=== PATIENT | female | born 1945 | race Caucasian/White ===

== ENCOUNTER 2018-03-26 18:44 | Outpatient (REF) | payer MEDICARE, SELFPAY ==
[2018-03-26 19:58] LABS: ALT 36 U/L (12-78); AST 23 U/L (15-37); HDL Cholesterol 47 mg/dL (40-60); LDL CHOLESTEROL 132 mg/dL (<100)
[2018-03-26 20:29] LABS: Creatine Kinase 101 U/L (26-192)
== END 2018-03-26 19:04 ==
LOC: NCHCN 18:44
PROVIDERS: PCP Nurse Practitioner Family; Visit Provider Nurse Practitioner Family
DX: E78.5 Hyperlipidemia, unspecified (principal)
CPT/HCPCS: 82550; 83721; 83718; 84450; 84460

== ENCOUNTER 2019-04-16 09:24 | Outpatient (REF) | payer MEDICARE, SELFPAY ==
[2019-04-16 20:36] LABS: ALT 33 U/L (14-59); AST 16 U/L (15-37); Calculated LDL 106 mg/dL; Cholesterol 190 mg/dL (50-200); Glucose 100 mg/dL (70-100); HDL Cholesterol 54 mg/dL (40-60); Triglyceride 151 mg/dL (30-150)
== END 2019-04-16 09:44 ==
LOC: NCHCO 09:24
PROVIDERS: PCP Nurse Practitioner Family; Visit Provider Nurse Practitioner Family
DX: E78.5 Hyperlipidemia, unspecified (principal); R73.9 Hyperglycemia, unspecified
CPT/HCPCS: 80061; 82947; 84450; 84460

== ENCOUNTER 2021-03-29 14:30 | Outpatient (REF) | payer MEDICARE, SELFPAY ==
[2021-03-29 20:26] LABS: TSH (W/Ref FT4) 3.83 uIU/mL (0.36-3.74)
[2021-03-29 20:43] LABS: FREE T4 0.66 ng/dL (0.76-1.46)
[2021-04-12 09:55] LABS: Misc Referral (MAYO) See Comments
== END 2021-03-29 14:31 | disposition home or self-care (01) ==
LOC: LBN 14:30
PROVIDERS: PCP Nurse Practitioner Family; Visit Provider Ophthalmology
DX: H53.2 Diplopia (principal); H50.89 Other specified strabismus
CPT/HCPCS: 83519; 83520; 84439; 84443

== ENCOUNTER 2021-07-14 17:45 | Outpatient (REF) | payer MEDICARE, SELFPAY ==
[2021-07-14 19:49] LABS: Anion Gap 9.6 mmol/L (3-11); BUN 20 mg/dL (7-18); CO2 27.4 mmol/L (21.0-32.0); CREATININE 0.9 mg/dL (0.55-1.02); Chloride 101 mmol/L (98-107); Glucose 124 mg/dL (74-106); Sodium 138 mmol/L (136-145); TSH (W/Ref FT4) 3.56 uIU/mL (0.36-3.74)
== END 2021-07-14 17:46 | disposition home or self-care (01) ==
LOC: NCHCN 17:45
PROVIDERS: PCP Nurse Practitioner Family; Visit Provider Physician Assistant
DX: I10 Essential (primary) hypertension (principal); E04.1 Nontoxic single thyroid nodule
CPT/HCPCS: 80048; 84443

== ENCOUNTER 2022-03-23 10:05 | Outpatient (REF) | payer MEDICARE, SELFPAY ==
[2022-03-23 20:06] LABS: TSH 2.18 uIU/mL (0.36-3.74)
== END 2022-03-23 10:06 | disposition home or self-care (01) ==
LOC: NCHCN 10:05
PROVIDERS: PCP Nurse Practitioner Family; Visit Provider Physician Assistant
DX: E04.1 Nontoxic single thyroid nodule (principal)
CPT/HCPCS: 84443

== ENCOUNTER 2022-11-13 17:34 | Outpatient (REF) | payer MEDICARE, SELFPAY ==
[2022-11-13 20:58] LABS: TSH 4.96 uIU/mL (0.36-3.74)
== END 2022-11-13 17:35 | disposition home or self-care (01) ==
LOC: NCHCN 17:34
PROVIDERS: PCP Nurse Practitioner Family; Visit Provider Physician Assistant
DX: E04.1 Nontoxic single thyroid nodule (principal)
CPT/HCPCS: 84443

== ENCOUNTER 2022-12-19 09:42 | Outpatient (REF) | payer MEDICARE, SELFPAY ==
[2022-12-19 19:38] LABS: TSH (W/Ref FT4) 2.39 uIU/mL (0.36-3.74)
== END 2022-12-19 09:43 | disposition home or self-care (01) ==
LOC: LBN 09:42
PROVIDERS: PCP Nurse Practitioner Family; Visit Provider Student in an Organized Health Care Education/Training Program
DX: E03.9 Hypothyroidism, unspecified (principal); E55.9 Vitamin D deficiency, unspecified
CPT/HCPCS: 82306; 84443

== ENCOUNTER 2023-03-21 10:06 | Outpatient (REF) | payer MEDICARE, SELFPAY ==
[2023-03-21 21:22] LABS: ALT 39 U/L (14-59); AST 21 U/L (15-37); Alkaline Phosphatase 50 U/L (46-116); Anion Gap 9.7 mmol/L (3-11); BUN 22 mg/dL (7-18); Bilirubin, Total 0.5 mg/dL (0.2-1.0); CO2 26.3 mmol/L (21.0-32.0); CREATININE 0.9 mg/dL (0.55-1.02); Calcium 9.6 mg/dL (8.5-10.1); Chloride 101 mmol/L (98-107); Estimated GFR 66.67 (mL/min/1.73m2); Glucose 106 mg/dL (74-106); Potassium 4.2 mmol/L (3.5-5.1); Sodium 137 mmol/L (136-145); TSH (W/Ref FT4) 1.61 uIU/mL (0.36-3.74); Total Protein 7.2 g/dL (6.4-8.2); Vitamin B12 194 pg/mL (193-986); Vitamin D 25 Total 24.7 ng/mL (30-100)
== END 2023-03-21 10:07 | disposition home or self-care (01) ==
LOC: NCHCN 10:06
PROVIDERS: PCP Nurse Practitioner Family; Visit Provider Physician Assistant
DX: E03.9 Hypothyroidism, unspecified (principal); I10 Essential (primary) hypertension; E55.9 Vitamin D deficiency, unspecified; E53.8 Deficiency of other specified B group vitamins
CPT/HCPCS: 80053; 82306; 82607; 84443

== ENCOUNTER → 2023-04-11 00:05 | Outpatient (CLI) | payer MEDICARE, SELFPAY ==
--- NOTE | 2023-04-11 | DI.MAMMO_ITS ---
Exam(s) MAMMO SCREENING EXAM: MAMMO SCREENING CLINICAL HISTORY: SCREENING MAMMO Z12.31 TECHNIQUE: Bilateral full field digital CC and MLO mammographic images were obtained with 3D tomosyn thesis and utilizing computer aided detection (CAD). COMPARISON: Available for comparison. FINDINGS: Masses/Architectural Distortion: None seen. Microcalcifications: No suspicious pleomorphic-type are seen. Stable benign type calcifications are s een in both breasts. Skin Thickening/Nipple Retraction: None. IMPRESSION: 1. No significant interval change with no specific features of malignancy noted. 2. Unless there is more urgent need, screening mammography is recommended, as per [place] guidelines. BI-RADS Category 2 - Benign Findings Breast Density - Category B - Scattered areas of fibroglandular density Breast density category C or D implies that the patient has dense breast tissue. Dense breast tissue is very common and is not abnormal but dense breast tissue can make it harder to find cancer on a ma mmogram. Also, dense breast tissue may increase their breast cancer risk. This information about the result of the mammogram report was provided to the patient to raise their awareness. Use this report when you speak with the patient about their risks for breast cancer, which includes their family hist ory. At that time, you may recommend for more screening tests (Ultrasound or MRI) as they might be us eful based on their risk. A negative radiographic report should not delay biopsy if a dominant or clinically suspicious mass is present. Up to ten percent of cancers are not identified on mammography. A negative report may reinforce clinical impression. Adenosis and dense breasts may obscure an underlying neoplasm. False positive reports average 6 to 10%. Patient will receive a letter notifying them of these results.
--- NOTE | 2023-04-11 | DI.MRI_ITS ---
Exam(s) MR LOWER JOINT LT WO EXAM: MR LOWER JOINT LT WO CLINICAL HISTORY: LEFT KNEE PAIN M25.562 LEFT KNEE EFFUSION M25.462. TECHNIQUE: Multiplanar multisequence MRI was performed. COMPARISON: No exams were available for comparison FINDINGS: The examination is limited due to patient motion artifact. BONES: There is no fracture or contusion pattern. JOINTS: In the medial femoral tibial joint space there is loss of the articular cartilage with flatte melody of the articular surfaces. There are osteophytes present and subchondral edema. The findings a re consistent with marked osteoarthritis. There is mild thinning of the articular cartilage along th e medial patellar facet. There are osteophytes seen in the lateral femoral tibial joint and the post erior patella. There is a small to moderate size joint effusion. TENDONS: Extensor mechanism: Unremarkable. Medial retinaculum: Unremarkable. Lateral retinaculum: Unremarkable. Popliteus: Unremarkable. MUSCLES: Unremarkable. MENISCI: There is abnormal signal and size in the body and posterior horn of the medial meniscus cons istent with degeneration. The lateral meniscus is unremarkable. SOFT TISSUES: There is a popliteal cyst present. LIGAMENTS: Anterior Cruciate: Unremarkable. Posterior Cruciate: Unremarkable. Medial Collateral:Unremarkable. Lateral Collateral: Unremarkable. OTHER: IMPRESSION: 1. Marked degenerative changes of the knee particularly the medial femoral tibial joint. 2. Moderate joint effusion and popliteal cyst. 3. No evidence of ligament tear. 4. Degeneration and/or tear of the body and posterior horn of the medial meniscus. DATA REPOSITORY:
== END ==
PROVIDERS: PCP Nurse Practitioner Family; Visit Provider Physician Assistant
DX: Z12.31 Encounter for screening mammogram for malignant neoplasm of breast (principal); M17.12 Unilateral primary osteoarthritis, left knee
CPT/HCPCS: 73721; 77063; 77067

== ENCOUNTER → 2023-06-15 08:56 | Outpatient (BNVA) | payer MEDICARE, SELFPAY | PROVIDERS: PCP Physician Assistant; Referring Provider Physician Assistant; Visit Provider Student in an Organized Health Care Education/Training Program | DX: M17.12 Unilateral primary osteoarthritis, left knee (principal) | CPT/HCPCS: 99203 ==

== ENCOUNTER → 2023-06-29 09:07 | Outpatient (BNVA) | payer MEDICARE, SELFPAY | PROVIDERS: PCP Physician Assistant; Referring Provider Physician Assistant; Visit Provider Student in an Organized Health Care Education/Training Program | DX: M17.12 Unilateral primary osteoarthritis, left knee (principal) | CPT/HCPCS: 20610; J7325 ==

== ENCOUNTER 2023-11-27 14:26 | Outpatient (REF) | payer MEDICARE, SELFPAY ==
[2023-11-27 20:08] LABS: Vitamin D 25 Total 29.9 ng/mL (30-100)
[2023-11-27 20:17] LABS: BUN 24 mg/dL (7-18); CREATININE 0.9 mg/dL (0.55-1.02); Calcium 9.5 mg/dL (8.5-10.1); Chloride 106 mmol/L (98-107); Estimated GFR 66.26 (mL/min/1.73m2); Glucose 101 mg/dL (74-106); Potassium 4.2 mmol/L (3.5-5.1); Sodium 140 mmol/L (136-145); Vitamin B12 710 pg/mL (193-986)
== END 2023-11-27 14:27 | disposition home or self-care (01) ==
LOC: NCHCN 14:26
PROVIDERS: PCP Physician Assistant; Visit Provider Physician Assistant
DX: I10 Essential (primary) hypertension (principal); E55.9 Vitamin D deficiency, unspecified; E53.9 Vitamin B deficiency, unspecified
CPT/HCPCS: 80048; 82306; 82607; 84443

== ENCOUNTER → 2023-12-07 01:02 | Outpatient (CLI) | payer MEDICARE, SELFPAY ==
--- NOTE | 2023-12-07 | DI.DEXA_ITS ---
Exam(s) XR DEXA BONE DENSITY W/WO CONRAD EXAM: XR DEXA BONE DENSITY W/WO CONRAD CLINICAL HISTORY: ASYMPTOMATIC MENOPAUSAL STATE, Z78.0 TECHNIQUE: [employer] Horizon C densitometer analysis of the lumbar spine and left forearm. Lateral s urvey image of the thoracic and lumbar spine. COMPARISON: No exams were available for comparison FINDINGS: Lateral view of the thoracic and lumbar spine shows no evidence of compression fractures. Bone mineral density measurements of the lumbar spine correspond to a total T-score of -0.3, in the normal range. Hip bone mineral density measurements were not performed due to bilateral hip prostheses. Theleft forearm bone mineral density measurements correspond to a T-score of the distal 3rd of -0.8 , in the normal range.. IMPRESSION: Normal bone mineral density of the spine and forearm.
== END ==
PROVIDERS: PCP Physician Assistant; Visit Provider Physician Assistant
DX: Z78.0 Asymptomatic menopausal state (principal); Z13.820 Encounter for screening for osteoporosis
CPT/HCPCS: 77080

== ENCOUNTER → 2024-01-07 12:57 | Outpatient (BNVA) | payer MEDICARE, SELFPAY | PROVIDERS: PCP Physician Assistant; Referring Provider Physician Assistant; Visit Provider Student in an Organized Health Care Education/Training Program | DX: M17.12 Unilateral primary osteoarthritis, left knee (principal) | CPT/HCPCS: 99214 ==

== ENCOUNTER 2024-01-09 20:15 | Outpatient (REF) | payer MEDICARE, SELFPAY | END 2024-01-09 20:16 | disposition home or self-care (01) | LOC: NCHCN 20:15 | PROVIDERS: PCP Physician Assistant; Visit Provider Physician Assistant | DX: R32 Unspecified urinary incontinence (principal) | CPT/HCPCS: 87086 ==

== ENCOUNTER → 2024-01-16 01:34 | Outpatient (CLI) | payer MEDICARE, SELFPAY ==
--- NOTE | 2024-01-16 | DI.US_ITS ---
Exam(s) US CAROTID EXAM: US CAROTID CLINICAL HISTORY: CAROTID BRUIT,R09.89,PREOP. TECHNIQUE: Ultrasound carotids performed using grayscale, color-flow, and spectral Doppler imaging. COMPARISON: No exams were available for comparison FINDINGS: CAROTID ARTERIES: There is some plaque noted on the anterior wall of the right carotid bulb. Also on the posterior wal l the proximal right ICA. No abnormal velocities at nor distal to this level. On the left side there is also some plaque at the level the carotid bulb and proximal ICA, also witho ut elevated velocities at nor distal to this level. There also no elevated velocities in the internal carotid arteries in the upper neck. VERTEBRAL ARTERIES: Antegrade flow was demonstrated in both vertebral arteries in the neck.. Measurements: R Bulb: 68.2cm/s PS / 19.3cm/s ED R CCA: 80.2cm/s PS / 15.4cm/s ED R ECA: 143.5cm/s PS / 0cm/s ED R ICA Prox: 83.7cm/s PS / 22.5cm/s ED R ICA Mid: 83.6cm/s PS / 30.1cm/s ED R ICA Distal: 50.5cm/s PS /16.3cm/s ED R Vert: 51.6cm/s PS / 14.9cm/s ED R SVR: 1 R DVR: 1.5 L Bulb: 69cm/s PS / 16.8cm/s ED L CCA: 76.4cm/s PS / 17.4cm/s ED L ECA: 89.3cm/s PS / 8.5cm/s ED L ICA Prox: 80cm/s PS / 24.4cm/s ED L ICA Mid: 92.6cm/s PS / 31.8cm/s ED L ICA Distal: 104.2cm/s PS / 34.4cm/s ED L Vert: 64.8cm/s PS / 22.3cm/s ED L SVR: 1.4 L DVR: 2 IMPRESSION: Mild plaque seen bilaterally in the level of the carotid bulbs and proximal internal carotid arteries , but without elevated velocities. This indicates the amount of stenosis is less than 50 percent. V isually I estimate the amount of stenosis at approximately 20 percent bilaterally. Antegrade flow is demonstrated in both vertebral arteries in the neck Criteria for Carotid Stenosis: Normal: ICA PSV <125 cm/s no plaque or intimal thickening is visible. <50% stenosis: ICA PSV <125 cm/s and plaque or intimal thickening is visible. 50-69% stenosis: ICA PSV is 125-250 cm/s and plaque is visible. >70% stenosis to near occlusion: ICA PSV >250 cm/s with visible plaque and luminal narrowing. DATA REPOSITORY:
--- NOTE | 2024-01-16 | DI.US_ITS ---
Exam(s) US THYROID EXAM: US THYROID CLINICAL HISTORY: THYROID NODULE,E04.1. TECHNIQUE: Ultrasound thyroid performed using standard protocol. COMPARISON: None FINDINGS: This patient apparently had prior ultrasound-guided FNA of the nodule in the right thyroid lobe few y ears ago at [facility]. Apparently negative for malignancy. Those images are not available at the time of this study. Both thyroid lobes exhibit normal size and echotexture with the exception of 1 nodule in each lobe. The larger nodule is in the right lobe. RIGHT THYROID LOBE: Measures 1.5 cm AP x 1.7 cm wide x 3.7 cm craniocaudal There is a solitary nodule at approximately the midpole level of the right lobe. This nodule measure s 1.7 (craniocaudal) x 1.2 x 1.2 cm. Composition: Uniformly solid-2 points Echogenicity: Hypoechoic compared to surrounding parenchyma-2 points Shape: Wider than taller in the transverse plane-0 points Margin: Smooth- 0 points Echogenic Foci: None-0 points Total Points for this nodule: 4 ACR Ti-Rads Category: TR4 This TR 4 level nodule would qualify for ultrasound-guided FNA as it measures greater than 1.5 cm. A pparently it has already undergone ultrasound-guided FNA a few years ago [facility]. ISTHMUS: Normal thickness. There are no nodules in the isthmus. LEFT THYROID LOBE: Measures 1.4 cm AP x 1.2 wide x 4.0 cm craniocaudal Contains a single nodule located inferiorly in the left lobe. This nodule measures 0.7 x 0.3 x 0.7 cm Composition: Solid-2 points Echogenicity: Hypoechoic-2 points Shape: Wider than taller in the transverse plane-0 points Margin: Smooth-0 points Echogenic Foci: None-0 points Total points for this nodule: 4 ACR Ti-Rads Category: 4 This TR 4 level nodule does not require ultrasound-guided FNA as it measures less than 1.5 cm LYMPH NODES: There are few small lymph nodes both sides the neck. No gross lymphadenopathy evident.. IMPRESSION: Thyroid gland size is normal. There is a single TR 4 level nodule in each lobe as described above. The larger nodule which is in t he right lobe does qualify for ultrasound-guided FNA as it measures slightly larger than 1.5 cm. How ever, it has apparently undergone prior ultrasound-guided FNA in [facility] a few years ago. As the next step we should acquired the prior outside images for comparison as well as the pathology report from that outside FNA procedure (which the patient claims was apparently negative for malignan cy). An addendum will follow once these have been received and compared. DATA REPOSITORY:
== END ==
PROVIDERS: PCP Physician Assistant; Visit Provider Physician Assistant
DX: R09.89 Other specified symptoms and signs involving the circulatory and respiratory systems (principal); E04.1 Nontoxic single thyroid nodule
CPT/HCPCS: 76536; 93880

== ENCOUNTER → 2024-01-16 01:35 | Outpatient (CLI) | payer MEDICARE, SELFPAY ==
--- NOTE | 2024-01-16 11:18 | DI.RAD_ITS ---
Exam(s) XR HIP RT COMPLETE AP PELVIS EXAM: XR HIP RT COMPLETE AP PELVIS CLINICAL HISTORY: PAIN RT HIP JOINT, M25.551. TECHNIQUE: 2D digital imaging was performed. COMPARISON: No exams were available for comparison FINDINGS: Two views. There are bilateral hip prostheses which appear satisfactory. No evidence of fracture or loosening. There is dystrophic calcification on the right side above the greater trochanter. No evidence of os teomyelitis. Remainder pelvic bones unremarkable although did some degenerative disc disease is noted in the visua lized lumbar spine. IMPRESSION: Bilateral hip prostheses as above. Dystrophic calcification in the soft tissues on the right side. DATA REPOSITORY: RADIATION DOSE DELIVERED:
== END ==
PROVIDERS: PCP Physician Assistant; Visit Provider Nurse Practitioner Family
DX: M25.551 Pain in right hip (principal); Z96.643 Presence of artificial hip joint, bilateral; M61.9 Calcification and ossification of muscle, unspecified
CPT/HCPCS: 73502; 76536; 93880

== ENCOUNTER → 2024-01-29 01:13 | Outpatient (CLI) | payer MEDICARE, SELFPAY ==
--- OUTSIDE RECORDS SUMMARY | 2024-01-25 00:27 | XMS_ITS | Encounter Summary ---
Author Organization [facility] Address [facility] [address] Care Team Providers Care Shift Superintendent Name Role Phone Carina Davis Primary Care Provider [phone] Encounter Details Date Type Department Care Team (Latest Contact Info) Description 05/24/2022 Travel Social History Tobacco Use Types Packs/Day Years Used Date Smoking Tobacco: Former Cigarettes Smokeless Tobacco: Never Comments:in college Alcohol Use Standard Drinks/Week Comments No 0 (1 standard drink = 0.6 oz pur e alcohol) Sex and Gender Information Value Date Recorded Sex Assigned at Not on file Gender Identity Not on file Sexual Orientation Not on file documented as of this encounter Plan of Treatment Upcoming Encounters Date Type Department Care Team (Late st Contact Info) Description 02/26/2024 10:15 AM EDT Office Visit Endocrinology at [facility] [place] [address] Cornell Harper MD [facility] [place] [address] documented as of this encounter Visit Diagnoses Not on filedocumented in this encounter Care Teams Shift Superintendent Relationship Specialty Start Date End Date Carina Davis PA [address] [place] [id number] PCP - General Family Medicine 03/02/22 documented as of this encounter
--- OUTSIDE RECORDS SUMMARY | 2024-01-25 00:27 | XMS_ITS | Encounter Summary ---
Author Organization [facility] Address [facility] [place] [address] Care Team Providers Care Standpipe Tender Name Role Phone Ulices Baylee Mayorga APRN Primary Care Provider [phone] Encounter Details Date Type Department Care Team (Latest Contact Info) Description 02/26/2019 8:27 AM EDT - 02/26/2019 11:14 AM EDT Hospital Encounter XRay at [address] [place] [address] Noemi Hudson MD [facility] [place] [address] History of total hip arthroplasty, right; 02/04/2014 Dr. Holland Left Anterior AMBER; 04/01/2018 S/P revision of right total hip (Dr. Hudson) Discharge Disposition: Home Social History Tobacco Use Types Packs/Day Years Used Date Smoking Tobacco: Former Cigarettes Smokeless Tobacco: Never Comments:in college Alcohol Use Standard Drinks/Week Comments No 0 (1 standard drink = 0.6 oz pur e alcohol) Sex and Gender Information Value Date Recorded Sex Assigned at Not on file Gender Identity Not on file Sexual Orientation Not on file documented as of this encounter Medications at Time of Discharge Medication Sig Dispensed Refills Start Date End Date clobetasol (TEMOVATE) 0.05 % cream Apply 1 Application topically as needed. omeprazole (PRILOSEC) 20 mg capsule Take 20 mg by mouth daily. acyclovir (ZOVIRAX) 800 mg tablet Take 800 mg by mouth as needed. Cold sores cephALEXin (KEFLEX) 500 mg capsule Take 2,000 mg by mouth as needed. Takes 1 hour prior to dental work. albuterol (PROVENTIL HFA;VENTOLIN HFA) 90 mcg/actuation inhaler Inhale 2 puffs into the lungs every 4 hours as needed. Use with spacer SERTRALINE HCL (SERTRALINE ORAL) Take 50 mg by mouth daily. fluticasone (FLOVENT HFA) 220 mcg/Actuation inhaler 09/02/2010 EPINEPHrine 0.3 mg/0.3 mL Auto-Injector Inject 0.3 mg into the muscle once as needed. acetaminophen (TYLENOL) 500 mg Tablet Take 2 tablets by mouth every 8 hours. Continue the Tylenol around the clock for 10 days after surgery, (04/11/2018). Then may take if needed per package insert. Do not take more than 3,000 mg of Tylenol in 24 hours. 04/02/2018 atorvastatin (LIPITOR) 40 mg Tablet Take 40 mg by mouth daily. documented as of this encounter Plan of Treatment Upcoming Encounters Date Type Department Care Team (Late st Contact Info) Description 02/26/2024 10:15 AM EDT Office Visit Endocrinology at [facility] [place] [address] Cornell Harper MD [facility] [place] [address] Scheduled Orders Name Type Priority Associated Diagnoses Orde r Schedule XR Pelvis w AP & Lat Hip Bilat Imaging Routine History of total hip arthroplasty, right 1 Occurrences starting 02/26/2019 until 02/26/2019 documented as of this encounter Procedures Procedure Name Priority Date/Time Associated Diagnosis Comments XR PELVIS AND HIP 2 VIEWS BILATERAL Routine 02/26/2019 8:45 AM EDT 02/04/2014 Dr. Holland Left Anterior AMBER 04/01/2018 S/P revision of right total hip (Dr. Hudson) documented in this encounter Results * XR Pelvis and Hip 2 Views Bilateral (02/26/2019 8:45 AM EDT) Anatomical Region Laterality Modality Pelvis, Hip Bilateral Digital Radiogra phy Impressions 02/26/2019 1:30 PM EDT Bilateral total hip arthroplasty. No acute change or complication. Thank you for letting us participate in the care of this patient. For questions regarding this report, please contact the number below. ? Narrative 02/26/2019 1:30 PM EDT EXAMINATION: XR PELVIS AND HIP 2 VIEWS BILATERAL CLINICAL HISTORY: bilat TH TECHNIQUE: AP pelvis with AP and lateral views of the hips acquired bilaterally. COMPARISON: 04/30/2018 FINDINGS: Noncemented total hip arthroplasty has been performed bilaterally. No acute change is identified. On the right there is heterotopic ossification. Demineralization is seen deep to the acetabular component however this is not changed compared to recent studies and no well-defined osteolysis is identified. Moreover the femoral head is well centered. On the left, no acute change or complication is identified. Procedure Note Adiel Cai MD - 02/26/2019 EXAMINATION: XR PELVIS AND HIP 2 VIEWS BILATERAL CLINICAL HISTORY: bilat TH TECHNIQUE: AP pelvis with AP and lateral views of the hips acquired bilaterally. COMPARISON: 04/30/2018 FINDINGS: Noncemented total hip arthroplasty has been performed bilaterally. No acute change is identified. On the right there is heterotopic ossification. Demineralization is seendeep to the acetabular component however this is not changed compared to recentstudies and no well-defined osteolysis is identified. Moreover the femoral head iswell centered. On the left, no acute change or complication is identified. IMPRESSION Bilateral total hip arthroplasty. No acute change or complication. Thank you for letting us participate in the care of this patient. Forquestions regarding this report, please contact the number below. Noemi Hudson MD IMG DX ORDERABLES documented in this encounter Visit Diagnoses Diagnosis History of total hip arthroplasty, right 02/04/2014 Dr. Holland Left Anterior AMBER Primary localized osteoarthrosis, pelvic region and thigh 04/01/2018 S/P revision of right total hip (Dr. Hudson) Hip joint replacement by other means documented in this encounter Care Teams Standpipe Tender Relationship Specialty Start Date End Date Baylee Elena APRN PCP - General Family Medicine 03/25/18 03/01/22 documented as of this encounter
--- OUTSIDE RECORDS SUMMARY | 2024-01-25 00:27 | XMS_ITS | Encounter Summary ---
Author Organization [facility] Address [facility] [place] [address] Care Team Providers Care Account Planner Name Role Phone Baylee Elena Mukesh JORDAN Primary Care Provider [phone] Encounter Details Date Type Department Care Team (Late st Contact Info) Description 02/26/2019 Orders [place] [phone] Noemi Hudson MD [facility] [place] [address] 02/04/2014 Dr. Holland Left Anterior AMBER; 04/01/2018 S/P revision of right total hip (Dr. Hudson) Social History Tobacco Use Types Packs/Day Years [...] 10:15 AM EDT Office [place] [phone] Cornell Harper [place] [address] documented as of this encounter Results * XR Pelvis and [...] this report, please contact the number below. Electronically signed by: Adiel Cai [facility]([phone]), at 02/26/2019 1:30 PM Noemi Hudson MD IMG DX ORDERABLES documented in this encounter Visit Diagnoses Diagnosis History of total hip arthroplasty, right 02/04/2014 Dr. Holland Left Anterior AMBER Primary localized osteoarthrosis, pelvic region and thigh 04/01/2018 S/P revision of right total hip (Dr. Hudson) Hip joint replacement by other means 02/04/2014 Dr. Holland Left Anterior AMBER Primary localized osteoarthrosis, pelvic region and thigh 04/01/2018 S/P revision of right total hip (Dr. Hudson) Hip joint replacement by other means documented in this encounter Care Teams Account Planner Relationship Specialty Start Date End Date Baylee Elena APRN PCP - General Family Medicine 03/25/18 03/01/22 documented as of this encounter
--- OUTSIDE RECORDS SUMMARY | 2024-01-25 00:27 | XMS_ITS | Encounter Summary ---
Author Organization [facility] [place] [address] Care Team Providers Care Ppap Coordinator Name Role Phone Ulices Baylee Mayorga APRN Primary Care Provider [phone] Encounter Details Date Type Department Care Team (Late st Contact Info) Description 03/30/2020 Tele[place] [phone] Roberto Carlos Anguiano MD [facility] [place] [address] Social History Tobacco Use Types Packs/Day Years Used Date Smoking Tobacco: Former Cigarettes Smokeless Tobacco: Never Comments:in college Alcohol Use Standard Drinks/Week Comments No 0 (1 standard drink = 0.6 oz pur e alcohol) Sex and Gender Information Value Date Recorded Sex Assigned at Not on file Gender Identity Not on file Sexual Orientation Not on file documented as of this encounter Miscellaneous Notes * Telephone Encounter - Nancy Antony - 05/11/2020 4:14 PM EDT Spoke to pt scheduled w/Dr. Bello on 10/01/20, she said that DL told her if her vision didn't improve she may need to see neuro nuclear operator. She said she has blurred vision still and eyes crossing hard time with glasses. I offered to send to triage or DL for review and she said with COVID shewas not comfortable coming in so to not send at this time. She agreed to sched September appt advised if gets closer to appt and still not comfortable coming in can cancel. Advised I would make this noteso provider aware * Telephone Encounter - Nancy Antony - 05/11/2020 8:21 AM EDT Received referral from Keren Valle to scan, per review pt can establish here w/optom or if insists on DL, can inquire at [facility] to see him there. * Telephone Encounter - Meche Chavez - 03/30/2020 11:32 AM EDT Patient saw Dr. Anguiano in [place] back in August and had f/u originally scheduled for April. Patienthas all her records from [place] office with her, would like to see Dr. Anguiano as she is having trouble focusing. I let her know I would ask Dr. Anguiano to get a referral in for her and then we would call her to schedule. documented in this encounter Plan of Treatment Upcoming Encounters Date Type Department Care Team (Late st Contact Info) Description 02/26/2024 10:15 AM EDT Office Visit Endocrinology at [facility] [place] [address] Cornell Harper MD [facility] [place] [address] documented as of this encounter Visit Diagnoses Not on filedocumented in this encounter Care Teams Ppap Coordinator Relationship Specialty Start Date End Date Baylee Elena APRN PCP - General Family Medicine 03/25/18 03/01/22 documented as of this encounter
--- OUTSIDE RECORDS SUMMARY | 2024-01-25 00:27 | XMS_ITS | Encounter Summary ---
Author Organization [facility] Address [facility] [place] [address] Care Team Providers Care Highway Administrative Engineer Name Role Phone Carina Davis Primary Care Provider [phone] Encounter Details Date Type Department Care Team (Latest Contact Info) Description 11/20/2022 Travel Social History Tobacco Use Types Packs/Day [...] 10:15 AM EDT Office Visit Endocrinology at [facility] [place] [address] Cornell Harper MD [facility] [place] [address] documented as of this encounter Visit Diagnoses Not on filedocumented in this encounter Care Teams Highway Administrative Engineer Relationship Specialty Start Date End Date Carina Davis PA [address] [place] [id number] PCP - General Family Medicine 03/02/22 documented as of this encounter
--- OUTSIDE RECORDS SUMMARY | 2024-01-25 00:27 | XMS_ITS | Encounter Summary ---
[place] [address] Care Team Providers Care Leadlighter Name Role Phone Carina Davis Primary Care Provider [phone] Encounter Details Date Type Department Care Team (Late st Contact Info) Description 12/28/2022 Telephone [place] [address] eCsar Pineda DO [facility] DR [place] [address] Social History Tobacco Use Types Packs/Day Years [...] encounter Miscellaneous Notes * Telephone Encounter - Cesar Pineda DO - 12/28/2022 10:44 AM EDT Called to discuss labs and next steps with patient. No answer, left VM asking for call back. Cesar Pineda DO Endocrinology Fellow documented in this encounter Plan of Treatment Upcoming Encounters Date Type Department Care Team (Late st Contact Info) Description 02/26/2024 10:15 AM EDT Office Visit Endocrinology at [facility] [place] [address] Cornell Harper [place] [facility] [address] documented as of this encounter Visit Diagnoses Not on filedocumented in this encounter Care Teams Leadlighter Relationship Specialty Start Date End Date Carina Davis PA [address] [place] [id number] PCP - General Family Medicine 03/02/22 documented as of this encounter
--- OUTSIDE RECORDS SUMMARY | 2024-01-25 00:27 | XMS_ITS | Encounter Summary ---
Author Organization [facility] [place] [address] Care Team Providers Care Visual Merchandising Director Name Role Phone Carina Davis Primary Care Provider [phone] Reason for Visit * Reason Comments Medication Refill Encounter Details Date Type Department Care Team (Late st Contact Info) Description 01/12/2023 Refill [place] [phone] Cesar Pineda, [facility] [place] [address] Social History Tobacco Use Types Packs/Day Years [...] 10:15 AM EDT Office Visit [place] [address] Cornell Harper MD [facility] [place] [id number] documented as of this encounter Visit Diagnoses Not on filedocumented in this encounter Care Teams Visual Merchandising Director Relationship Specialty Start Date End Date Carina Davis PA [address] [address] PCP - General Family Medicine 03/02/22 documented as of this encounter
--- OUTSIDE RECORDS SUMMARY | 2024-01-25 00:27 | XMS_ITS | Encounter Summary ---
Author Organization [facility] [place] [address] Care Team Providers Care Lumber Material Handler Name Role Phone Carina Davis Primary Care Provider [phone] Encounter Details Date Type Department Care Team (Late st Contact Info) Description 12/28/2022 Telephone [place] [phone] Cesar Pineda, [facility] [place] [address] Social History Tobacco Use Types Packs/Day Years [...] Miscellaneous Notes * Telephone Encounter - Cesar Pineda, - 12/28/2022 11:02 AM EDT Called and spoke with patient. She is taking levothyroxine 50mcg. Feels more energy and walking is better. Taking Vit D 50,000u weekly, has two doses left. 12/19/22 TSH 2.39 Vit D: 18 Will give her 4 weeks of vit D 50,000u twice weekly in addition to her other remaining dooses and then re-check. I did remind her it is possible to have too much Vit D so it will needto be followed. Will re-check TSH when the Vit D is re-checked as this measurement was oonly 4 weeks after she started the LT4. We will arrange for her to come in for a biopsy within the next couple of weeks. Cesar Pineda DO Endocrinology Fellow documented in this encounter Plan of Treatment Upcoming Encounters Date Type Department Care Team (Late st Contact Info) Description 02/26/2024 10:15 AM EDT Office [place] [address] Cornell Harper MD [facility] [place] [address] documented as of this encounter Visit Diagnoses Not on filedocumented in this encounter Care Teams Lumber Material Handler Relationship Specialty Start Date End Date Carina Davis PA [address] [place] [address] PCP - General Family Medicine 03/02/22 documented as of this encounter
--- OUTSIDE RECORDS SUMMARY | 2024-01-25 00:27 | XMS_ITS | Encounter Summary ---
Author Organization [facility] [place] [address] Care Team Providers Care Breaker Off Name Role Phone Carina Davis Primary Care Provider Encounter Details Date Type Department Care Team (Late st Contact Info) Description 01/16/2024 1:45 PM EDT Ancillary Procedure [place] [phone] Carina Davis PA [address] [place] [address] Social History Tobacco Use Types Packs/Day Years [...] 10:15 AM EDT Office [place] [phone] Cornell Harper MD [facility] [place] [address] documented as of this encounter Procedures Procedure Name Priority Date/Time Associated Diagnosis Comments FILM LIBRARY STORAGE ONLY ULTRASOUND STUDY Routine 01/16/2024 1:44 PM EDT documented in this encounter Results * Film Library- Storage Only Ultrasound Study (01/16/2024 1:44 PM EDT) Narrative [facility] - 01/16/2024 1:44 PM EDT This exam is auto-finalizing. It's purpose is for storage only. Carina AMES William FILM LIBRARY ORD ERABLES [place], [place] documented in this encounter Visit Diagnoses Not on filedocumented in this encounter Care Teams Breaker Off Relationship Specialty Start Date End Date Carina Davis PA [address] [place] [address] PCP - General Family Medicine 03/02/22 documented as of this encounter
--- OUTSIDE RECORDS SUMMARY | 2024-01-25 00:27 | XMS_ITS | Encounter Summary ---
[facility] [place] [address] Care Team Providers Care Shrinking Machine Operator Name Role Phone Carina Davis Primary Care Provider [phone] Encounter Details Date Type Department Care Team (Latest Contact Info) Description 01/10/2023 Travel Social History Tobacco Use Types Packs/Day [...] 10:15 AM EDT Office Visit Endocrinology at [facility] [place] [address] Cornell Harper MD [facility] [place] [address] documented as of this encounter Visit Diagnoses Not on filedocumented in this encounter Care Teams Shrinking Machine Operator Relationship Specialty Start Date End Date Carina Davis PA [address] [place] [address] PCP - General Family Medicine 03/02/22 documented as of this encounter
--- OUTSIDE RECORDS SUMMARY | 2024-01-25 00:27 | XMS_ITS | Encounter Summary ---
Author Organization [facility] Address [facility] [place] [address] Care Team Providers Care Associate Pastor Name Role Phone Carina Davis Primary Care Provider [phone] Encounter Details Date Type Department Care Team (Latest Contact Info) Description 11/16/2022 Travel Social History Tobacco Use Types Packs/Day [...] 10:15 AM EDT Office Visit Endocrinology at [facility] [place] [address] Cornell Harper MD [facility] [place] [address] documented as of this encounter Visit Diagnoses Not on filedocumented in this encounter Care Teams Associate Pastor Relationship Specialty Start Date End Date Carina Davis PA [address] [place] [address] PCP - General Family Medicine 03/02/22 documented as of this encounter
--- OUTSIDE RECORDS SUMMARY | 2024-01-25 00:27 | XMS_ITS | Encounter Summary ---
Author Organization [facility] [place] [address] Care Team Providers Care Pool Table Operator Name Role Phone Carina Davis Primary Care Provider [phone] Reason for Visit * Consultation (Routine) - Closed Specialty Diagnoses / Procedures Referred By Calin vasquez Referred To Contact Endocrinology Diagnoses Thyroid nodule Carina Davis PA [address] [place] [address] [facility] [place] Endocrinology [address] [place] [address] Referral ID Status Reason Start Date Expiration Date V isits Requested Visits Authorized [id number] Closed Consult, Test & Treat PCP Updated and/or Approved 03/02/2022 03/02/2023 6 6 Encounter Details Date Type Department Care Team (Late st Contact Info) Description 05/26/2022 10:00 AM EST Office [place] [address] Cesar Pineda, [facility] [place] [address] Thyroid nodule Social History Tobacco Use Types Packs/Day Years Used Date Smoking Tobacco: Former Cigarettes Smokeless Tobacco: Never Comments:in college Alcohol Use Standard Drinks/Week Comments No 0 (1 standard drink = 0.6 oz pur e alcohol) Sex and Gender Information Value Date Recorded Sex Assigned at Not on file Gender Identity Not on file Sexual Orientation Not on file documented as of this encounter Last Filed Vital Signs Vital Sign Reading Time Taken Comments Blood Pressure 159/80 05/26/2022 9:34 AM EST Pulse 82 05/26/2022 9:34 AM EST Temperature 36.4 ??C (97.6 ??F) 05/26/2022 9:34 AM ES T Respiratory Rate - - Oxygen Saturation 99% 05/26/2022 9:34 AM EST Inhaled Oxygen Concentration - - Weight - - Height 157.5 cm (5' 2) 05/26/2022 9:34 AM EST Body Mass Index - - documented in this encounter Progress Notes * Cesar Pineda, DO - 05/26/2022 10:00 AM EST Images from the original note were not included. Ms. Alyssa Burnham is an 76 y.o. female who presents in consultation for chief complaint of thyroid nodule. Referred by: Carina AMES Acquisition, Review and Summation of Old Medical Records: HPI: Patient presents for evaluation of incidentally discovered thyroid nodule. This was found on carotid ultrasound. She has no compressive symptoms or history of thyroid dysfunction. There is family history of hypothyroidism in her mother and sister. No family history of thyroid cancer. She has not been exposed to any radiation. Review of some lab work that she brought with her to the visit today reveals that previously she had a mildly elevated TSH over 3 with a slightly low free T4 however this seems to have improved as her TSH in March 2022 measured at [facility] was 2.18. Past Medical History: Diagnosis Date ??? Asthma ??? Bowel disease ??? Gastroesophageal reflux ??? Heart valve disease diag long ago ??? Intraoperative complication colonoscopy ??? Irregular heart beat hx PVC ??? Mental health problem ??? Vertigo bad feet knees hips, fell last week Past Surgical History: Procedure Laterality Date ??? CREATED BY INTERFACE Entered not Verified Procedure Date: 09/02/2010 ??? CREATED BY INTERFACE TOTAL HIP ARTHROPLASTY / RIGHT/PINNACLE BRAYDON./S-ROM FEMORAL Procedure Date: 12/02/2008 ??? JOINT REPLACEMENT bilateral hip ??? PRO REVISE TOTAL HIP REPLACEMENT Right 04/01/2018 @TOTAL HIP REVISION ARTHROPLASTY, COMPLETE (WRVU 30.28) [facility] ??? PRO TOTAL HIP ARTHROPLASTY 02/04/2014 @TOTAL HIP ARTHROPLASTY, ANTERIOR APPROACH performed by Lance Holland MD at [facility] Social History Socioeconomic History ??? Marital status: Spouse name: Not on file ??? Number of children: Not on file ??? Years of education: Not on file ??? Highest education level: Not on file Occupational History ??? Not on file Tobacco Use ??? Smoking status: Former Smoker Packs/day: 0.00 Years: 0.50 Pack years: 0.00 Types: Cigarettes ??? Smokeless tobacco: Never Used ??? Tobacco comment: in college Vaping Use ??? Vaping Use: Never used Substance and Sexual Activity ??? Alcohol use: No ??? Drug use: No ??? Sexual activity: Not on file Other Topics Concern ??? Not on file Social History Narrative ??? Not on file Social Determinants of Health Financial Resource Strain: Not on file Food Insecurity: Not on file Transportation Needs: Not on file Physical Activity: Not on file Housing Stability: Not on file Family History Problem Relation Age of Onset ??? Cancer Paternal Grandmother ??? Anesthesia Reaction Mother Current Outpatient Medications: ??? acetaminophen (TYLENOL) 500 mg Tablet, Take 2 tablets by mouth every 8 hours. Continue the Tylenol around the clock for 10 days after surgery, (04/11/2018). Then may take if needed per package insert. Do not take more than 3,000 mg of Tylenol in 24 hours., Disp: , Rfl: ??? clobetasol (TEMOVATE) 0.05 % cream, Apply 1 Application topically as needed., Disp: , Rfl: ??? omeprazole (PRILOSEC) 20 mg capsule, Take 20 mg by mouth daily., Disp: , Rfl: ??? acyclovir (ZOVIRAX) 800 mg tablet, Take 800 mg by mouth as needed. Cold sores, Disp: , Rfl: ??? albuterol (PROVENTIL HFA;VENTOLIN HFA) 90 mcg/actuation inhaler, Inhale 2 puffs into the lungs every 4 hours as needed. Use with spacer , Disp: , Rfl: ??? SERTRALINE HCL (SERTRALINE ORAL), Take 50 mg by mouth daily., Disp: , Rfl: ??? fluticasone (FLOVENT HFA) 220 mcg/Actuation inhaler, , Disp: , Rfl: ??? EPINEPHrine 0.3 mg/0.3 mL Auto-Injector, Inject 0.3 mg into the muscle once as needed., Disp: ,Rfl: ??? atorvastatin (LIPITOR) 40 mg Tablet, Take 40 mg by mouth daily., Disp: , Rfl: ??? cephALEXin (KEFLEX) 500 mg capsule, Take 2,000 mg by mouth as needed. Takes 1 hour prior to dental work., Disp: , Rfl: Allergies Allergen Reactions ??? Latex Rash ??? Bee Sting [Hymenoptera Allergenic Extract] Anaphylaxis ??? Iodine And Iodide Containing Products Rash ??? Perfume Oil Shortness Of Breath ??? Morphine Sulfate Rash ??? Penicillins Rash ??? Aspirin GI pain ??? Codeine Other (See Comments) Medication went to her head, felt fuzzy and out of it and didn't help pain ??? Hydrocodone Other (See Comments) Medication went to her head, felt fuzzy and out of it and didn't help the pain ??? Sulfa (Sulfonamide Antibiotics) headache Physical Exam: Patient Vitals for the past 24 hrs: Temp Pulse BP SpO2 05/26/22 0934 36.4 ??C (97.6 ??F) 82 159/80 99 % Wt & BMI By Encounter Date Flowsheet Row Office Visit from 07/18/2018 in Orthopaedics at [facility] Office Visit from 07/03/2018 in Orthopaedics at [facility] Weight 75.8 kg (167 lb) [as of 06/25/18] 1 07/18/2018 1202 76.2 kg (167 lb 14.4 oz) 1 07/03/2018 1119 BMI 30.53 1 07/18/2018 1202 30.71 1 07/03/2018 1119 General: no acute distress, pleasant, sitting comfortably Eyes: no lid lag; normal eye movements Neck: no supraclavicular fat pads; no thyroid enlargement or palpable masses Lymphatic: no palpable cervical lymph nodes Respiratory: symmetrical chest expansion, breathing comfortably on room air without audible wheeze or stridor Cardiovascular: 2+ radial pulse, RRR Musculoskeletal: moving all 4 extremities normally. normal female musculature Skin: normal temperature/texture, no jaundice or pallor Neurological: no tremors Psychological: alert/oriented to person, place, time; normal affect; memory intact; normal judgement/insight Radiology Studies: See separate bedside US report Laboratory Data: TSH in March 2022 measured at [facility] was 2.18. Assessment / Plan: 76yo woman presents for evaluation of an incidentally discovered thyroid nodule. This was recently measured up to 1.7cm at [facility] but is 1.5cm today. It is a TR4 nodule so FNA was discussed however due to its small size and overall low risk features as well as close proximity to the carotid artery it was decided to repeat the US here in the clinic in 6 months and to re-check the TSH at that time as well. -repeat US and TSH in 6 months A note will be sent to the referring provider Return to clinic in 6 months Discussed with attending physician, Dr. Jaramillo. It was a pleasure to be involved in the care of Alyssa Burnham. If you have any questions about the management and treatment plan as outlined above, or if I can be of further assistance, please do not hesitate to contact me. Sincerely, Cesar Pineda DO Endocrinology Fellow * Cesar Pineda DO - 05/26/2022 10:00 AM EST Images from the original note were not included. ENDOCRINOLOGY THYROID ULTRASOUND REPORT Patient:Alyssa Burnham, [id number] Date of exam: 05/26/2022 Indication: Thyroid nodule Comparison: US 02/21/22 (report only) Performed by: Milagros Crump DO, MD Real time images of the thyroid gland were obtained using a Zubican US machine. All measurements are given as Longitudinal/Sagittal x AP x Transverse. Right Lobe: The right lobe measures 2.2cm x 1.5cm x 1.6cm. Nodule 1: 1.5cm x 0.9cm x 1.3. Solid, hypoechoic, wider than tall, smooth border, no calcifications. TR 4 Isthmus: The isthmus measures 0.19mm. Left Lobe: The left lobe measures 3.1cm x 0.9cm x 1.3cm. Lateral neck: I examined the lateral neck regions and saw no morphologically abnormal lymph nodes. Impression: Right sided TR4 thyroid nodule measuring 1.5cm. Repeat ultrasound in 6 months. * Milagros Jaramillo MD - 05/26/2022 10:00 AM EST I have seen the patient and reviewed Dr. Cesar Pineda's above history and I agree with the details as written. The assessment and plan were formulated in discussion with me and I agree with them as documented. I also directly supervised thyroid US and agree with the findings as written. Milagros Jaramillo MD, PhD, FACP, FACE documented in this encounter Plan of Treatment Upcoming Encounters Date Type Department Care Team (Late st Contact Info) Description 02/26/2024 10:15 AM EDT Office Visit Endocrinology at [facility] [place] [address] Cornell Harper MD [facility] [place] [address] documented as of this encounter Results * (ABNORMAL) TSH [place] (11/20/2022 11:40 AM EDT) TSH 4.57(H) 0.27 - 4.20 mcIU/mL [facility] Comment: Reference Interval (mcIU/mL): Females: ??First Trimester: 0.23-3.88 ??Second Trimester: 0.22-3.90 ??Third Trimester: 0.44-4.66 Blood 11/20/2022 11:4 0 AM EDT 11/20/2022 11:52 AM EDT Narrative Resulting Agency Comment Spec In Lab Milagros Jaramillo MD CHEMISTRY ORDERAB LES Performing Organization Address City/State/[facility] Co de Phone Number [facility] [place] [address] documented in this encounter Visit Diagnoses Diagnosis Thyroid nodule Nontoxic uninodular goiter documented in this encounter Care Teams Pool Table Operator Relationship Specialty Start Date End Date Carina Davis PA [address] [place] [id number] PCP - General Family Medicine 03/02/22 documented as of this encounter
--- OUTSIDE RECORDS SUMMARY | 2024-01-25 00:27 | XMS_ITS | Encounter Summary ---
Author Organization [facility] Address [facility] [place] [address] Care Team Providers Care Kitchen Clerk Name Role Phone Carina Davis Primary Care Provider [phone] Encounter Details Date Type Department Care Team (Latest Contact Info) Description 11/22/2022 Travel Social History Tobacco Use Types Packs/Day [...] 10:15 AM EDT Office Visit Endocrinology at [facility] [place] [address] Cornell Harper MD [facility] [place] [address] documented as of this encounter Visit Diagnoses Not on filedocumented in this encounter Care Teams Kitchen Clerk Relationship Specialty Start Date End Date Carina Davis PA [address] [place] [address] PCP - General Family Medicine 03/02/22 documented as of this encounter
--- OUTSIDE RECORDS SUMMARY | 2024-01-25 00:27 | XMS_ITS | Encounter Summary ---
Author Organization [facility] [place] [address] Care Team Providers Care Poker Manager Name Role Phone Baylee Elena APRN Primary Care Provider [phone] Encounter Details Date Type Department Care Team (Late st Contact Info) Description 02/21/2022 Ancillary Procedure [place] [address] Baylee Elena APRN [address], [place] [id number] Social History Tobacco Use Types Packs/Day Years [...] 10:15 AM EDT Office Visit Endocrinology at [facility] [place] [place] [address] Cornell Harper MD [facility] [place] [address] documented as of this encounter Procedures Procedure Name Priority Date/Time Associated Diagnosis Comments FILM LIBRARY STORAGE ONLY ULTRASOUND STUDY Routine 02/21/2022 12:00 AM EDT documented in this encounter Results * Film Library- Storage Only Ultrasound Study (02/21/2022 12:00 AM EDT) Narrative [facility] - 02/22/2022 7:39 PM EDT This exam is auto-finalizing. It's purpose is for storage only. Baylee Elena APRN IMWilliam FILM LIBRARY ORD ERABLES [place], [place] documented in this encounter Visit Diagnoses Not on filedocumented in this encounter Care Teams Poker Manager Relationship Specialty Start Date End Date Baylee Elena APRN PCP - General Family Medicine 03/25/18 03/01/22 documented as of this encounter
--- OUTSIDE RECORDS SUMMARY | 2024-01-25 00:27 | XMS_ITS | Clinical Summary ---
[facility] [place] [address] Care Team Providers Care It Administrative Assistant Name Role Phone Carina Davis Primary Care Provider [phone] Allergies Active Allergy Reactions Criticality Noted Date Comments Aspirin GI pain Hymenoptera Allergenic Extract Anaphylaxis High 03/28/2018 Codeine Other (See Comments) 02/02/2014 Medication went to her head, felt fuzzy and out of it and didn't help pain Hydrocodone Other (See Comments) 02/02/2014 Medication went to her head, felt fuzzy and out of it and didn't help the pain Iodine And Iodide Containing Products Rash High Latex Rash Medium Morphine Sulfate Rash Medium Penicillins Rash Medium Perfume Oil Shortness Of Breath High 02/02/2014 Sulfa (Sulfonamide Antibiotics) headache Medications Medication Sig Dispensed Refills Start Date End Date Status fluticasone (FLOVENT HFA) 220 mcg/Actuation inhaler 09/02/2010 Active albuterol (PROVENTIL HFA;VENTOLIN HFA) 90 mcg/actuation inhaler Inhale 2 puffs into the lungs every 4 hours as needed. Use with spacer Active SERTRALINE HCL (SERTRALINE ORAL) Take 50 mg by mouth daily. Active acyclovir (ZOVIRAX) 800 mg tablet Take 800 mg by mouth as needed. Cold sores Active cephALEXin (KEFLEX) 500 mg capsule Take 2,000 mg by mouth as needed. Takes 1 hour prior to dental work. Active clobetasol (TEMOVATE) 0.05 % cream Apply 1 Application topically as needed. Active omeprazole (PRILOSEC) 20 mg capsule Take 20 mg by mouth daily. Active atorvastatin (LIPITOR) 40 mg Tablet Take 40 mg by mouth daily. Active acetaminophen (TYLENOL) 500 mg Tablet Take 2 tablets by mouth every 8 hours. Continue the Tylenol around the clock for 10 days after surgery, (04/11/2018). Then may take if needed per package insert. Do not take more than 3,000 mg of Tylenol in 24 hours. 04/02/2018 Active EPINEPHrine 0.3 mg/0.3 mL Auto-Injector Inject 0.3 mg into the muscle once as needed. Active levothyroxine (Synthroid) 50 mcg tablet Take 1 tablet by mouth daily. 90 tablet 3 11/22/2022 Active naproxen sodium (Anaprox) 550 mg tablet Take 550 mg by mouth as needed. Active Active Problems Problem Noted Date Diagnosed Date 04/01/2018 S/P revision of right total hip (Dr. 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 Morales 2 009 12/30/2013 02/04/2014 Dr. Holland Left Anterior AMBER 12/30/2013 CIS - Entered not Verified 09/02/2010 CIS - Arthritis CIS - GERD CIS - HTN CIS - hyperlipidemia CIS - reactive airway disease Encounters Date Type Department Care Team Description 01/16/2024 1:45 PM EDT Ancillary [place] [id number] Carina Davis PA from Last 3 Months Immunizations Name Administration Dates Next Due Influenza Vaccine, Whole 04/15/2008 Pneumococcal Polysaccharide (Pneumovax 23) 08/16 Family History Medical History Relation Comments Anesthesia Reaction Mother Cancer Paternal Grandmother Relation Status Comments Mother Paternal Grandmother Social History Tobacco Use Types Packs/Day Years Used Date Smoking Tobacco: Former Cigarettes Smokeless Tobacco: Never Comments:in college Alcohol Use Standard Drinks/Week Comments No 0 (1 standard drink = 0.6 oz pur e alcohol) Sex and Gender Information Value Date Recorded Sex Assigned at Not on file Gender Identity Not on file Sexual Orientation Not on file Last Filed Vital Signs Vital Sign Reading Time Taken Comments Blood Pressure 152/84 01/10/2023 9:22 AM EDT Pulse 68 01/10/2023 9:22 AM EDT Temperature 36.8 ??C (98.2 ??F) 01/10/2023 9:22 AM ED T Respiratory Rate 17 04/02/2018 3:41 PM EDT Oxygen Saturation 97% 01/10/2023 9:22 AM EDT Inhaled Oxygen Concentration - - Weight 80.8 kg (178 lb 3.2 oz) 01/10/2023 9:22 A M EDT Height 157.5 cm (5' 2) 01/10/2023 9:22 AM EDT Body Mass Index 32.59 01/10/2023 9:22 AM EDT Plan of Treatment Upcoming Encounters Date Type Department Care Team (Late st Contact Info) Description 02/26/2024 10:15 AM EDT Office Visit Endocrinology at [facility] [place] [address] Cornell Harper MD [facility] [place] [address] Health Maintenance Due Date Last Done Comments Hepatitis C Screening 1965 Tdap adult 1966 Tetanus vaccine 1966 Zoster vaccine (1 of 2) 1997 Bone Density Scan 2012 Pneumoccocal Vaccine: 65+ (2 of 2 - PCV) 2012 08/16/2008 Covid-19 Vaccine ( - 2022- season) 2023 Influenza (Flu) vaccine (1 o f 1 - Influenza standard series) 03/16/2024 04/15/2008 Medical Devices Implanted Type Area Attending Pathologist Device Identifier Shelf Expiration Date Model / Serial / Lot Cup,Hip,Acetb, Grptn,100,50mm ([id number]) (Autoreq) - [id number] Implanted:Qty: 1 on 02/04/2014 by Lance Holland MD at REPLACED BY [facility] IMPLANTS Left: Hip 10/14/2023 0 / / [id number] Inser,Altrx,Nt ,[id number] ([id number]) (Autoreq) - [id number] Implanted:Qty: 1 on 02/04/2014 by Lance Holland MD at REPLACED BY [facility] IMPLANTS Left: Hip 10/13/2018 0 / / [id number] Stem,Crl2,Std, Sz11 ([id number]) ([employer]oreq) - [id number] Implanted:Qty: 1 on 02/04/2014 by Lance Holland MD at REPLACED BY [facility] IMPLANTS Left: Hip 06/14/2018 [id number] / / [id number] Ball,Atc,Brn,+ 5mm,32mm ([id number]) ([employer]oreq) - [id number] Implanted:Qty: 1 on 02/04/2014 by Lance Holland MD at REPLACED BY [facility] IMPLANTS Left: Hip 10/13/2018 0 / / [id number] Inser,Altrx,10 d,+4,09n09td ([id number]) ([employer]oreq) - [id number] Implanted:Qty: 1 on 04/01/2018 by Noemi Hudson MD at REPLACED BY [facility] IMPLANTS Right: Hip [employer] - [employer]W [employer]EM[employer] 03/16/2019 0 / / [id number] Head,Fem,S-Rom ,Aluma,32+0 ([id number]) - [id number] Implanted:Qty: 1 on 04/01/2018 by Noemi Hudson MD at REPLACED BY [facility] IMPLANTS Right: Hip [employer] [facility] - [employer]W [employer] 03/16/2019 [id number] / / [id number] Procedures Procedure Name Priority Date/Time Associated Diagnosis Comments FILM LIBRARY STORAGE ONLY ULTRASOUND STUDY Routine 01/16/2024 1:44 PM EDT DIAGNOSTIC RADIOLOGY SCAN 01/16/2024 12:00 AM EDT DIAGNOSTIC RADIOLOGY SCAN 01/16/2024 12:00 AM EDT from Last 3 Months Results * Film Library- Storage Only Ultrasound Study (01/16/2024 1:44 PM EDT) Narrative DH RAD - 01/16/2024 1:44 PM EDT This exam is auto-finalizing. It's purpose is for storage only. Carina AMES IM FILM LIBRARY ORD ERABLES [facility] [place] * Scan Doc: Diagnostic Radiology (01/16/2024 12:00 AM EDT) Only the most recent of2 resultswithin the time period is included. Anatomical Region Laterality Modality Other Narrative 01/16/2024 12:00 AM EDT Ordered by an unspecified provider. Scanning Provider MEDIA MGR SCAN EXT O RDR/RSLT from Last 3 Months Advance Directives Documents on File Type Date Recorded Patient Curtain Mender Expl anation Advance Directives and Livin g Will 09/14/2010 10:08 AM * Full Code (Latest Code Status on File) Date Activated Date Inactivated Comments 04/01/2018 4:21 PM 04/02/2018 7:42 PM Question Answer Comments Does patient have capacity to make decision: Yes * Full Code Date Activated Date Inactivated Comments 02/04/2014 2:49 PM 02/06/2014 4:27 PM Care Teams It Administrative Assistant Relationship Specialty Start Date End Date Carina Davis PA [address] [place] [address] PCP - General Family Medicine 03/02/22
--- OUTSIDE RECORDS SUMMARY | 2024-01-25 00:27 | XMS_ITS | Encounter Summary ---
[place] [address] Care Team Providers Care Mask Layout Designer Name Role Phone Carina Davis Primary Care Provider Encounter Details Date Type Department Care Team (Late st Contact Info) Description 11/28/2022 Telephone [place] [phone] Leanne Larsen RN Social History Tobacco Use Types Packs/Day Years [...] encounter Miscellaneous Notes * Telephone Encounter - Leanne Larsen RN - 11/28/2022 12:03 PM EDT Pt called back saying that she would like to do the repeat biopsy in 6 weeks and not pushing it at 4 weeks. documented in this encounter Plan of Treatment Upcoming Encounters Date Type Department Care Team (Late st Contact Info) Description 02/26/2024 10:15 AM EDT Office [place] [address] Cornell Harper MD [facility] [place] [address] documented as of this encounter Visit Diagnoses Not on filedocumented in this encounter Care Teams Mask Layout Designer Relationship Specialty Start Date End Date Carina Davis PA [address] [place] [address] PCP - General Family Medicine 03/02/22 documented as of this encounter
--- OUTSIDE RECORDS SUMMARY | 2024-01-25 00:27 | XMS_ITS | Encounter Summary ---
Author Organization [facility] [place] [address] Care Team Providers Care Hat Model Name Role Phone Carina Davis Primary Care Provider [phone] Encounter Details Date Type Department Care Team (Late st Contact Info) Description 01/10/2023 9:30 AM EDT Office Visit Endocrinology at [facility] [place] [address] Vin Craig MD [facility] [address] [place] [address] Cesar Pineda DO [facility] [place] [address] Thyroid nodule; Vitamin D deficiency Social History Tobacco Use Types Packs/Day Years [...] 01/10/2023 9:22 AM ED T Respiratory Rate - - Oxygen Saturation 97% 01/10/2023 9:22 AM EDT Inhaled Oxygen Concentration - - Weight 80.8 kg (178 lb 3.2 oz) 01/10/2023 9:22 A M EDT Height 157.5 cm (5' 2) 01/10/2023 9:22 AM EDT Body Mass Index 32.59 01/10/2023 9:22 AM EDT documented in this encounter Progress Notes * Cesar Pineda, DO - 01/10/2023 9:30 AM EDT Images from the original note were not included. Ms. Alyssa Burnham is an 77 y.o. female who presents for ongoing care of thyroid nodule, hypothyroidism and vit D deficiency. Interval history: As the FNA we performed of her right sided nodule was nondiagnostic, she returns today for consideration of repeat FNA. She is now taking levothyroxine 50mcg. She was taking Vit D 50,000u weekly but we switched to twiceweekly as it was slow to respond. Otherwise no changes in her health. Taking LT4 and increased vit D. Patient Active Problem List Diagnosis 04/01/2018 S/P revision of right total hip (Dr. Hudson) Prosthetic hip implant failure Status post right hip replacement, Dr. Morales 200802/04/2014 Dr. Holland Left Anterior AMBER CIS - Entered not Verified CIS - Arthritis CIS - GERD CIS - HTN CIS - hyperlipidemia CIS - reactive airway disease Current Outpatient Medications: naproxen sodium (Anaprox) 550 mg tablet, Take 550 mg by mouth as needed., Disp: , Rfl: ergocalciferoL, vitamin D2, (vitamin D) 50,000 unit capsule, Take 1 capsule by mouth twice a week for 8 doses., Disp: 6 capsule, Rfl: 0 levothyroxine (Synthroid) 50 mcg tablet, Take 1 tablet by mouth daily., Disp: 90 tablet, Rfl: 3 EPINEPHrine 0.3 mg/0.3 mL Auto-Injector, Inject 0.3 mg into the muscle once as needed., Disp: , Rfl: acetaminophen (TYLENOL) 500 mg Tablet, Take 2 tablets by mouth every 8 hours. Continue the Tylenol around the clock for 10 days after surgery, (04/11/2018). Then may take if needed per package insert.Do not take more than 3,000 mg of Tylenol in 24 hours., Disp: , Rfl: clobetasol (TEMOVATE) 0.05 % cream, Apply 1 Application topically as needed., Disp: , Rfl: omeprazole (PRILOSEC) 20 mg capsule, Take 20 mg by mouth daily., Disp: , Rfl: acyclovir (ZOVIRAX) 800 mg tablet, Take 800 mg by mouth as needed. Cold sores, Disp: , Rfl: cephALEXin (KEFLEX) 500 mg capsule, Take 2,000 mg by mouth as needed. Takes 1 hour prior to dental work., Disp: , Rfl: albuterol (PROVENTIL HFA;VENTOLIN HFA) 90 mcg/actuation inhaler, Inhale 2 puffs into the lungs every 4 hours as needed. Use with spacer , Disp: , Rfl: SERTRALINE HCL (SERTRALINE ORAL), Take 50 mg by mouth daily., Disp: , Rfl: fluticasone (FLOVENT HFA) 220 mcg/Actuation inhaler, , Disp: , Rfl: atorvastatin (LIPITOR) 40 mg Tablet, Take 40 mg by mouth daily., Disp: , Rfl: has a past medical history of Asthma, Bowel disease, Gastroesophageal reflux, Heart valve disease, Intraoperative complication, Irregular heart beat, Mental health problem, Thyroid nodule, Vertigo, and Vitamin D deficiency. Physical Exam: Patient Vitals for the past 24 hrs: Temp Pulse BP SpO2 01/10/23 0922 36.8 ??C (98.2 ??F) 68 152/84 97 % Wt & BMI By Encounter Date Flowsheet Row Office Visit from 01/10/2023 in Endocrinology at [place] Office Visit from 07/18/2018 in Orthopaedics at [place] Weight 80.8 kg (178 lb 3.2 oz) 1 01/10/2023 0922 75.8 kg (167 lb) [as of 06/25/18] 1 07/18/2018 1202 BMI 32.59 1 01/10/2023 0922 30.53 1 07/18/2018 1202 General: no acute distress, pleasant, sitting comfortably Respiratory: breathing comfortably on room air Musculoskeletal: Moving all 4 extremities Psychological: alert/oriented to person, place, time; normal affect; memory intact; normal judgement/insight Radiology Studies: ENDOCRINOLOGY THYROID ULTRASOUND REPORT Patient:Alyssa Burnham, [id number] Date of exam: 01/11/2023 Indication: thyroid nodule Comparison: Clinic US 11/20/22 Performed by: Cesar Pineda DO, Vin Craig MD Real time images of the thyroid gland were obtained using a NXE US machine. All measurements are given as Longitudinal/Sagittal x AP x Transverse. Right Lobe: Nodule: 1.45cm x 0.86cm x 1.36cm. Solid, hypoechoic, smooth border, wider than tall, no calcification. TR4 Left Lobe: Two small subcentimeter nodules. They are too small for definitive characterization but one is likely spongiform and the other cystic. Impression: Right sided nodule that previously had a nondiagnostic FNA in Nov, 2022 measures only 1.45cm in maximal dimension and does not meet FNA criteria by TIRADS guidelines today. Recommend repeat US in 1 year. Laboratory Data: Latest Reference Range & Units 11/20/22 11:40 01/10/23 10:54 25-OH Vit D Total 21 - 100 ng/mL 14 (L) 34 25-OH Vit D Interp Deficient Sufficient T3, Total 80 - 200 ng/dL 89 Free T4 0.93 - 1.70 ng/dL 0.78 (L) TSH 0.27 - 4.20 mcIU/mL 4.57 (H) 1.83 Thyroperox Ab <=34 IU/mL <10 TSI <=0.55 IU/L <0.10 (L): Data is abnormally low (H): Data is abnormally high Assessment / Plan: 77yo woman presents for follow up of an incidentally discovered thyroid nodule, as well as new hypothyroidism and vitamin D deficiency. Thyroid nodule This was incidentally found on a carotid ultrasound. We performed an FNA of the dominant right sided nodule on 11/22/22 but the sample was nondiagnostic. She returned today for consideration of repeatFNA however the nodule only measured 1.45cm in maximal dimension today so we recommended surveillance with a repeat ultrasound in 1 year instead of another FNA. Hypothyroidism Her PCP found her TSH to be mildly elevated. We repeated this and got a similar result with a slightly low T4 and negative TPO antibody. We started levothyroxine 50mcg and TSH is now normal at 1.83. She has no known cardiac problem. Recommend re-checking TSH in 6 months and, if stable, annually. Vit D Deficiency Vit D was low so we started ergocalciferol 50,000u weekly for 8 doses, however he PCP re-checked the vitamin D and found it was slow to increase so we increased the dose to 50,000u twice weekly for another 4 weeks. It is now in the low normal range. She can complete her remaining doses of the 50,000u and then switch to a maintenance dose of 1,000u (25mcg) to 2,000u (50mcg) daily. Recommend checking vitamin D annually. If she has not had a DXA would recommend that she have one next year after the Vit D has been normal for around 1 year. Discussed with attending physician, Dr. Craig. Cesar Pineda DO Endocrinology Fellow * Vin Craig MD - 01/10/2023 9:30 AM EDT I have seen the patient and reviewed Dr Pineda's history and I agree with the details as written. The assessment and plan were formulated in discussion with me and I agree with them as documented. I personally reviewed the ultrasound findings and report and agree with the report. By JULIA guidelines, it is stated that most nodules that have nondiagnostic FNAs are ultimately benign. Given this and the fact that the right thyroid nodule is now just under the 1.5 cm size thresholdfor TIRADS4 nodule FNA, and given stability over time, monitoring only is reasonable and the patient feels comfortable with this plan Time statement: I spent 20 total minutes on this visit today. The time was spent face to face with the patient, on chart review and documentation, ordering labs/studies and coordination of care Vin Craig MD Brake Repairer Bustool rental technician Endocrinology Section [facility] documented in this encounter Miscellaneous Notes * Addendum Note - Vin Craig MD - 01/10/2023 9:30 AM EDTAddended by: VIN CRAIG on: 01/11/2023 01:22 PM Modules accepted: Level of Service documented in this encounter Plan of Treatment Upcoming Encounters Date Type Department Care Team (Late st Contact Info) Description 02/26/2024 10:15 AM EDT Office Visit Endocrinology at [facility] [place] [address] Vin Craig MD [facility] [place] [address] documented as of this encounter Procedures Procedure Name Priority Date/Time Associated Diagnosis Comments CYTOPATHOLOGY NON-GYNECOLOGICAL Routine 01/10/2023 9:27 AM EDT Thyroid nodule documented in this encounter Results * Vitamin D, 25-Hydroxy (01/10/2023 10:54 AM EDT) 25-OH Vit D Total 34 21 - 100 ng/mL [facility] 25-OH Vit D Interp Sufficient [facility] Blood 01/10/2023 10:5 4 AM EDT 01/10/2023 11:12 AM EDT Narrative Resulting Agency Comment Spec In Lab Vin Craig MD CHEMISTRY ORDERABLE S [facility] [place] [address] * TSH [facility] (01/10/2023 10:54 AM EDT) TSH 1.83 0.27 - 4.20 mcIU/mL [facility] Comment: Reference Interval (mcIU/mL): Females: ??First Trimester: 0.23-3.88 ??Second Trimester: 0.22-3.90 ??Third Trimester: 0.44-4.66 Blood 01/10/2023 10:5 4 AM EDT 01/10/2023 11:12 AM EDT Narrative Resulting Agency Comment Spec In Lab Vin Craig MD CHEMISTRY ORDERABLE S Performing Organization Address City/[facility]/ZIP Co de Phone Number [facility] [place] [address] * Cytopathology Non-Gynecological (01/10/2023 9:27 AM EDT) AP Specimen 01/10/2023 9:27 AM EDT 01/10/2023 9:27 AM EDT Narrative [facility] - 01/10/2023 9:27 AM EDT Specimen requisition ordered. ??Separate Pathology report to follow Vin Craig MD PATHOLOGY/CYTOLOGY ORDERABLES Performing Organization Address City/[facility] [place] [address] documented in this encounter Visit Diagnoses Diagnosis Thyroid nodule Nontoxic uninodular goiter Vitamin D deficiency Unspecified vitamin D deficiency documented in this encounter Care Teams Hat Model Relationship Specialty Start Date End Date Carina Davis PA [address] [place] [id number] PCP - General Family Medicine 03/02/22 documented as of this encounter
--- OUTSIDE RECORDS SUMMARY | 2024-01-25 00:27 | XMS_ITS | Encounter Summary ---
Author Organization [facility] [place] [address] Care Team Providers Care Director Pharmacy Services Name Role Phone Carina Davis Primary Care Provider [phone] Encounter Details Date Type Department Care Team (Latest Contact Info) Description 01/10/2023 10:45 AM EDT Laboratory Appointment Lab [address] [place] [address] Thyroid nodule; Vitamin D deficiency Social History [...] 10:15 AM EDT Office [place] [phone] Cornell Harper MD [facility] [place] [address] documented as of this encounter Procedures Procedure Name Priority Date/Time Associated Diagnosis Comments HC THYROID STIMULATING HORMONE, SERUM Routine 01/10/2023 10:54 AM EDT Thyroid nodule Vitamin D deficiency HC VITAMIN D TOTAL-25 HYDROXY Routine 01/10/2023 10:54 AM EDT Thyroid nodule Vitamin D deficiency documented in this encounter Results * TSH [facility] (01/10/2023 10:54 AM EDT) TSH 1.83 0.27 - 4.20 mcIU/mL [facility] Comment: Reference Interval (mcIU/mL): Females: ??First Trimester: 0.23-3.88 ??Second Trimester: 0.22-3.90 ??Third Trimester: 0.44-4.66 Blood 01/10/2023 10:5 4 AM EDT 01/10/2023 11:12 AM EDT Narrative Resulting Agency Comment Spec In Lab Cornell Harper MD CHEMISTRY ORDERABLE S [facility] [place] [address] * Vitamin D, 25-Hydroxy (01/10/2023 10:54 AM EDT) 25-OH Vit D Total 34 21 - 100 ng/mL [facility] 25-OH Vit D Interp Sufficient [facility] Blood 01/10/2023 10:5 4 AM EDT 01/10/2023 11:12 AM EDT Narrative Resulting Agency Comment Spec In Lab Cornell Harper MD CHEMISTRY ORDERABLE S [facility] [place] [address] documented in this encounter Visit Diagnoses Diagnosis Thyroid nodule Nontoxic uninodular goiter Vitamin D deficiency Unspecified vitamin D deficiency documented in this encounter Care Teams Director Pharmacy Services Relationship Specialty Start Date End Date Carina Davis PA [address] [address] PCP - General Family Medicine 03/02/22 documented as of this encounter
--- OUTSIDE RECORDS SUMMARY | 2024-01-25 00:27 | XMS_ITS | Encounter Summary ---
Author Organization [facility] [place] [address] Care Team Providers Care Maintenance Inspector Name Role Phone Baylee Elena APRN Primary Care Provider Reason for Referral * Physical Therapy (Routine) - Specialty Diagnoses / Procedures Referred By Calin vasquez Referred To Contact Physical Therapy Diagnoses Primary osteoarthritis of both knees Noemi Hudson MD [facility] [place] [address] Referral ID Status Reason Start Date Expiration Date V isits Requested Visits Authorized [id number] Evaluate and Treat 02/26/2019 08/25/2019 12 12 Reason for Visit * Reason Comments Follow Up Surgery right AMBER revision; left hip pain Encounter Details Date Type Department Care Team (Latest Contact Info) Description 02/26/2019 10:00 AM EDT Office [place] [address] Noemi Hudson MD [facility] [place] [address] History of bilateral hip replacements; Primary osteoarthritis of both knees Social History Tobacco Use Types Packs/Day Years [...] Sign Reading Time Taken Comments Blood Pressure 157/63 02/26/2019 10:15 AM EDT Pulse 78 02/26/2019 10:15 AM EDT Temperature - - Respiratory Rate - - Oxygen Saturation - - Inhaled Oxygen Concentration - - Weight - - Height - - Body Mass Index - - documented in this encounter Progress Notes * Noemi Hudson MD - 02/26/2019 10:00 AM EDT Images from the original note were not included. Department of Orthopaedics Division of Adult Joint Reconstructive Surgery Progress Note CHIEF COMPLAINT: Interim evaluation s/p Bilateral Hip Replacement and Revision of the Right Hip Replacement HPI: Alyssa Burnham is a 73 y.o. year old female being seen today in the clinic. 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 She has otherwise done well since with her hips. She reports now worsening pain her knees that has improved some with home exercises but continues to persist the longer she's on her feet. QUESTIONNAIRE RESPONSES: General Health, Prior Treatments, PreExisting Condition, Health Habits, About You 02/26/2019 PROMIS-10 General Health Very Good PROMIS-10 Quality of Life Good PROMIS-10 Physical Health Good PROMIS-10 Mental Health Very Good PROMIS-10 Social Activity Good PROMIS-10 Everyday Activities A little PROMIS-10 Pain 4 PROMIS-10 Fatigue Moderate PROMIS-10 Social Roles Good PROMIS-10 Anxious or Depressed Rarely PROMIS PHYSICAL SCORE (range 16-68) 37.4 PROMIS MENTAL SCORE (range 21-68) 48.3 HOOS JR Scores 73.47 AMBER Grade 0 Live Alone - Combined Household Income - # People Supported - Orthope[facility] Response 02/26/2019 HOOS JR Scores 73.47 Spine [facility] Response 02/26/2019 HOOS JR Scores 73.47 VITALS: BP Readings from Last 1 Encounters: 02/26/19 157/63 Pulse Readings from Last 1 Encounters: 02/26/19 78 There is no height or weight on file to calculate BMI. PHYSICAL EXAM: The patient is alert, healthy looking, and is oriented to time, place, and person. The patient demonstrates good hip motion, stability, and strength bilaterally. IMAGING: X-rays of the Bilateral hip were reviewed in the office and demonstrate satisfactory position and alignment of the components are present. No signs of loosening are seen. ASSESSMENT AND PLAN:Ms. Burnham is a 73 y.o. year old female s/p Bilateral hip replacement with revision of the right hip replacement for a dissociated liner now with bilateral knee pain. Overall the patient is doing well regarding her hips, but is suffering from bilateral knee pain. Wediscussed the non-surgical management options of knee arthritis. She would like to proceed forward with PT and bilateral knee steroid injections. Noemi Hudson MD * Beatriz Rodriguez PA - 02/26/2019 10:00 AM EDT PROCEDURE NOTE: bilateral knee Injeciton A time-out was performed and the bilateral knee was confirmed to be the site of injection. The patient was confirmed to have no allergies to betadine, local anesthetics, or corticosteroids. The patient was reminded that blood glucose can be transiently elevated by the corticosteroid injection. The patient was counseled about the potential risks of the procedure, including infection, bleeding and incomplete relief of symptoms. The patient provided consent. I also discussed with the patient that cortisone is not healthy for muscle tendons or cartilage and that there is an increased risk with repeated injections. The skin was prepped widely over the bilateral knee. Then, using sterile technique, a solution consisting of 4cc 1% lidocaine (40 mg), and 1 cc Kenalog (40 mg) was injected into the bilateral knee. The needle was felt to slide into the capsule and the mixture flowed freely. The skin was cleaned more Band-Aid was applied. The patient tolerated the procedure well. HUI Allen documented in this encounter Plan of Treatment Upcoming Encounters Date Type Department Care Team (Late st Contact Info) Description 02/26/2024 10:15 AM EDT Office Visit Endocrinology at [facility] [place] [address] Cornell Harper MD [facility] [place] [address] Scheduled Referrals Name Type Priority Associated Diagnoses Orde r Schedule Referral to Physical Therapy Outpatient Referral Routine Primary osteoarthritis of both knees Ordered: 02/26/2019 documented as of this encounter Results * XR Knee Standing Alignment AP Lat [place] Bilat (02/26/2019 11:43 AM EDT) Anatomical Region Laterality Modality Bilateral Digital Radiogra phy Impressions 02/26/2019 4:12 PM EDT Bilateral knee osteoarthritis. There is pronounced medial compartment narrowing at the left knee. Thank you for letting us participate in the care of this patient. For questions regarding this report, please contact the number below. ? Narrative 02/26/2019 4:12 PM EDT EXAMINATION: XR KNEE STANDING ALIGNMENT AP LAT [place] SKYLINE BILAT CLINICAL HISTORY: Bilateral knee pain TECHNIQUE: Separate images of the pelvis, knees and feet were acquired in the AP projection with the patient standing. These images were stitched together to form a composite image of the pelvis and legs allowing for evaluation of lower extremity alignment in the weight bearing position. In addition, AP standing, Elder, lateral and skyline views were acquired COMPARISON: Right knee x-rays 03/21/2012 FINDINGS: The standing alignment study again documents the presence of bilateral total hip arthroplasty. Mechanical axis is well centered on the right. It is slightly medial of midline on the left. No effusion focal swelling or other evidence of acute injury is seen in either knee. At both knees subchondral sclerosis and osteophyte formation is present consistent with osteoarthritis. Pronounced medial compartment joint space narrowing is present at the left knee. The narrowing is most severe within the flexed as displayed on the Elder view. No joint space narrowing is evident at the right knee. Procedure Note Adiel Cai MD - 02/26/2019 EXAMINATION: XR KNEE STANDING ALIGNMENT AP LAT [place] SKYLINE BILAT CLINICAL HISTORY: Bilateral knee pain TECHNIQUE: Separate images of the pelvis, knees and feet were acquired inthe AP projection with the patient standing. These images were stitched togetherto form a composite image of the pelvis and legs allowing for evaluation oflower extremity alignment in the weight bearing position. In addition, APstanding, Elder, lateral and skyline views were acquired COMPARISON: Right knee x-rays 03/21/2012 FINDINGS: The standing alignment study again documents the presence of bilateraltotal hip arthroplasty. Mechanical axis is well centered on the right. It is slightly medial ofmidline on the left. No effusion focal swelling or other evidence of acute injury is seen ineither knee. At both knees subchondral sclerosis and osteophyte formation is present consistent with osteoarthritis. Pronounced medial compartment jointspace narrowing is present at the left knee. The narrowing is most severe withinthe flexed as displayed on the Elder view. No joint space narrowing isevident at the right knee. IMPRESSION Bilateral knee osteoarthritis. There is pronounced medial compartmentnarrowing at the left knee. Thank you for letting us participate in the care of this patient. Forquestions regarding this report, please contact the number below. Noemi Hudson MD IMWilliam DX ORDERABLES documented in this encounter Visit Diagnoses Diagnosis History of bilateral hip replacements Hip joint replacement by other means Primary osteoarthritis of both knees Primary localized osteoarthrosis, lower leg Primary osteoarthritis of both knees Primary localized osteoarthrosis, lower leg documented in this encounter Administered Medications Inactive Administered Medications - up to 3 most recent administrations Medication Order MAR Action Action Date Dose Rate Site lidocaine (XYLOCAINE) 10 mg/mL (1 %) injection 40 mg 40 mg, Subcutaneous, ONCE, 1 dose, On Anna 02/27/19 at 0945, Routine Given 02/27/2019 9:22 AM EDT 40 mg lidocaine (XYLOCAINE) 10 mg/mL (1 %) injection 40 mg 40 mg, Subcutaneous, ONCE, 1 dose, On Anna 02/27/19 at 0945, Routine Given 02/27/2019 9:22 AM EDT 40 mg triamcinolone acetonide (KENALOG-40) injection 40 mg 40 mg, Intramuscular, ONCE, 1 dose, On Anna 02/27/19 at 0945, Routine Given 02/27/2019 9:22 AM EDT 40 mg triamcinolone acetonide (KENALOG-40) injection 40 mg 40 mg, Intramuscular, ONCE, 1 dose, On Anna 02/27/19 at 0945, Routine Given 02/27/2019 9:22 AM EDT 40 mg documented in this encounter Care Teams Maintenance Inspector Relationship Specialty Start Date End Date Baylee Elena APRN PCP - General Family Medicine 03/25/18 03/01/22 documented as of this encounter
--- OUTSIDE RECORDS SUMMARY | 2024-01-25 00:27 | XMS_ITS | Encounter Summary ---
Author Organization [facility] Address [facility] [place] [address] Care Team Providers Care Arcade Games Mechanic Name Role Phone Carina Davis Primary Care Provider [phone] Encounter Details Date Type Department Care Team (Latest Contact Info) Description 05/26/2022 Travel Social History Tobacco Use Types Packs/Day [...] 10:15 AM EDT Office Visit Endocrinology at [facility] [place] [address] Cornell Harper MD [facility] [address] documented as of this encounter Visit Diagnoses Not on filedocumented in this encounter Care Teams Arcade Games Mechanic Relationship Specialty Start Date End Date Carina Davis PA [address] [place] [id number] PCP - General Family Medicine 03/02/22 documented as of this encounter
--- OUTSIDE RECORDS SUMMARY | 2024-01-25 00:27 | XMS_ITS | Encounter Summary ---
[place] [address] Care Team Providers Care Rabbet Operator Name Role Phone Carina Davis Primary Care Provider Encounter Details Date Type Department Care Team (Late st Contact Info) Description 11/27/2022 Telephone [place] [phone] Leanne Larsen RN Social History Tobacco Use [...] Telephone Encounter - Leanne Larsen RN - 11/27/2022 1:27 PM EDT Pt called saying that she had a biopsy on 11/22. They said it wasn't enough of a sample. Pt wants toknow what to do next? documented in this encounter Plan of Treatment Upcoming Encounters Date Type Department Care Team (Late st Contact Info) Description 02/26/2024 10:15 AM EDT Office Visit Endocrinology at [facility] [place] [address] [facility] [place] [address] documented as of this encounter Visit Diagnoses Not on filedocumented in this encounter Care Teams Rabbet Operator Relationship Specialty Start Date End Date Carina Davis PA [address] [place] [phone] PCP - General Family Medicine 03/02/22 documented as of this encounter
--- OUTSIDE RECORDS SUMMARY | 2024-01-25 00:27 | XMS_ITS | Encounter Summary ---
Author Organization [facility] [place] [address] Care Team Providers Care Top Spotter Name Role Phone Carina Davis Primary Care Provider [phone] Reason for Visit * Reason Onset Date Comments Medication Refill 01/01/2023 Encounter Details Date Type Department Care Team (Late st Contact Info) Description 01/01/2023 [place] [phone] Leanne Larsen RN Social History Tobacco Use [...] 10:15 AM EDT Office [place] [phone] Cornell Harper MD [facility] [place] [id number] documented as of this encounter Visit Diagnoses Not on filedocumented in this encounter Care Teams Top Spotter Relationship Specialty Start Date End Date Carina Davis PA [address] [place] [phone] PCP - General Family Medicine 03/02/22 documented as of this encounter
--- OUTSIDE RECORDS SUMMARY | 2024-01-25 00:27 | XMS_ITS | Encounter Summary ---
Author Organization [facility] Address [facility] [place] [address] Care Team Providers Care Marine Pipe Welder Name Role Phone Carina Davis Primary Care Provider [phone] Encounter Details Date Type Department Care Team (Latest Contact Info) Description 11/21/2022 Travel Social History Tobacco Use Types Packs/Day [...] 10:15 AM EDT Office Visit Endocrinology at [facility] [place] [address] Cornell Harper MD [facility] [place] [address] documented as of this encounter Visit Diagnoses Not on filedocumented in this encounter Care Teams Marine Pipe Welder Relationship Specialty Start Date End Date Carina Davis PA [address] [place] [phone] PCP - General Family Medicine 03/02/22 documented as of this encounter
--- OUTSIDE RECORDS SUMMARY | 2024-01-25 00:27 | XMS_ITS | Encounter Summary ---
Author Organization [facility] Address [facility] [place] [address] Care Team Providers Care Supervisor Bindery Name Role Phone Ulices Baylee Mayorga APRN Primary Care Provider [phone] Encounter Details Date Type Department Care Team (Latest Contact Info) Description 02/26/2019 11:15 AM EDT - 02/26/2019 11:59 PM EDT Hospital Encounter XRay at [address] [place] [address] Noemi Hudson MD [facility] [place] [address] Primary osteoarthritis of both knees Discharge Disposition: Home Social History Tobacco Use [...] 10:15 AM EDT Office Visit Endocrinology at [facility] [place] [address] Cornell Harper [place] [facility] [place] [address] documented as of this encounter Procedures Procedure Name Priority Date/Time Associated Diagnosis Comments XR KNEE STANDING ALIGNMENT AP LAT [place] SKYLINE BILAT Routine 02/26/2019 11:43 AM EDT Primary osteoarthritis of both knees documented in this encounter Results * XR Knee Standing Alignment AP Lat [place] Bilat (02/26/2019 11:43 AM EDT) Anatomical Region [...] documented in this encounter Visit Diagnoses Diagnosis Primary osteoarthritis of both knees Primary localized osteoarthrosis, lower leg documented in this encounter Care Teams Supervisor Bindery Relationship Specialty Start Date End Date Baylee Elena, PRODUCT PLANNER PCP - General Family Medicine 03/25/18 03/01/22 documented as of this encounter
--- OUTSIDE RECORDS SUMMARY | 2024-01-25 00:27 | XMS_ITS | Encounter Summary ---
Author Organization [facility] [place] [address] Care Team Providers Care Accountant Tax Name Role Phone Carina Davis Primary Care Provider [phone] Encounter Details Date Type Department Care Team (Late st Contact Info) Description 11/22/2022 11:25 AM EDT Office [place] [phone] Cesar Pineda, [facility] [place] [address] Thyroid nodule; Hypothyroidism, unspecified type; Vitamin D deficiency Social History Tobacco Use [...] Sign Reading Time Taken Comments Blood Pressure 151/75 11/22/2022 10:57 AM EDT Pulse 71 11/22/2022 10:57 AM EDT Temperature 36.3 ??C (97.4 ??F) 11/22/2022 10:57 AM E DT Respiratory Rate - - Oxygen Saturation 97% 11/22/2022 10:57 AM EDT Inhaled Oxygen Concentration - - Weight - - Height 157.5 cm (5' 2) 11/22/2022 10:57 AM EDT Body Mass Index - - documented in this encounter Progress Notes * Cesar Pineda, - 11/22/2022 11:25 AM EDT Images from the original note were not included. Ms. Alyssa Burnham is an 77 y.o. female who presents for ongoing care of thyroid nodule, hypothyroidism and vitamin D deficiency. Interval history: She returns today for FNA of the right-sided thyroid nodule. Plan from previous visit 11/20/22: 89o woman presents for follow up of an incidentally discovered thyroid nodule. It is a TR4 nodule.It was 1.5cm six months ago and is slightly larger today. FNA is recommended. We discussed at length the risks and benefits of this and she would like to proceed with it so we will schedule a time for her to return to clinic. ?? Her PCP recently found her TSH to be elevated. I re-checked it along with a free T4 and this confirms hypothyroidism. In addition, her eye doctor seems to have raised the possibility of thyroid eye disease so I will check TSI and TPO antibodies as well. Due to hypothyroidism with an enlarging thyroid nodule will start levothyroxine 50mcg. She has no cardiac history. ?? Due to tibial tenderness I checked Vit D and it is low. Will start a course of high dose vit D 50,000 units to be followed by OTC maintenance dose. ?? -will schedule a return visit for FNA -start levothyroxine 50mcg and re-check TSH in 6 weeks. Goal TSH 0.5 to 2. -start Vit D 50,000u weekly for 8 weeks then maintenance dose 1,000u daily?? -TSI and TPO pending Patient Active Problem List Diagnosis ??? 04/01/2018 S/P revision of right total hip (Dr. Hudson) ??? Prosthetic hip implant failure ??? Status post right hip replacement, Dr. Morales 2008 ??? 02/04/2014 Dr. Holland Left Anterior AMBER ??? CIS - Entered not Verified ??? CIS - Arthritis ??? CIS - GERD ??? CIS - HTN ??? CIS - hyperlipidemia ??? CIS - reactive airway disease Current Outpatient Medications: ??? acetaminophen (TYLENOL) 500 [...] mcg/Actuation inhaler, , Disp: , Rfl: ??? levothyroxine (Synthroid) 50 mcg tablet, Take 1 tablet by mouth daily., Disp: 90 tablet, Rfl: 3 ??? ergocalciferoL, vitamin D2, (vitamin D2) 50,000 unit capsule, Take 1 capsule by mouth once a week for 8 doses., Disp: 8 capsule, Rfl: 0 ??? EPINEPHrine 0.3 mg/0.3 mL Auto-Injector, Inject 0.3 mg into the muscle once as needed., Disp: ,Rfl: ??? atorvastatin (LIPITOR) 40 mg Tablet, Take 40 mg by mouth daily., Disp: , Rfl: ??? cephALEXin (KEFLEX) 500 mg capsule, Take 2,000 mg by mouth as needed. Takes 1 hour prior to dental work., Disp: , Rfl: has a past medical history of Asthma, Bowel disease, Gastroesophageal reflux, Heart valve disease, Intraoperative complication, Irregular heart beat, Mental health problem, and Vertigo. Physical Exam: Patient Vitals for the past 24 hrs: Temp Pulse BP SpO2 11/22/22 1057 36.3 ??C (97.4 ??F) 71 151/75 97 % Wt & BMI By Encounter Date Flowsheet Row Office Visit from 07/18/2018 in [place]opaed[place] [facility] Office Visit from 07/03/2018 in Orthopaedics at [facility] Weight 75.8 kg (167 lb) [as of 06/25/18] 1 07/18/2018 1202 76.2 kg (167 lb 14.4 oz) 1 07/03/2018 1119 BMI 30.53 1 07/18/2018 1202 30.71 1 07/03/2018 1119 General: no acute distress, pleasant, sitting comfortably Psychological: alert/oriented to person, place, time; normal affect; memory intact; normal judgement/insight Radiology Studies: See clinic US 11/20/22 Laboratory Data: Latest Reference Range & Units 11/20/22 11:40 25-OH Vit D Total 21 - 100 ng/mL 14 (L) 25-OH Vit D Interp Deficient Thyroperox Ab <=34 IU/mL <10 T3, Total 80 - 200 ng/dL 89 Free T4 0.93 - 1.70 ng/dL 0.78 (L) TSH 0.27 - 4.20 mcIU/mL 4.57 (H) TSI <=0.55 IU/L <0.10 (L): Data is abnormally low (H): Data is abnormally high Assessment / Plan: 77yo woman presents for follow up of an incidentally discovered thyroid nodule. It is a 1.6 cm TR4 nodule. She returns today for an FNA of the right-sided 1.6cm TR4 thyroid nodule. This was performedtoday. ?? Labs earlier this week confirmed hypothyroidism with low free T4 and elevated TSH. Will start levothyroxine 50mcg and re-check TSH in 6 to 8 weeks. TPO and TSI both negative so thyroid eye disease is very unlikely. Vit D is low so will start ergocalciferol 50,000u weekly for 8 doses and then she will switch to OTC maintenance dose 1,000u daily. Discussed with attending physician, Dr. Harper. Cesar Pineda DO Endocrinology Fellow * Cesar Pineda DO - 11/22/2022 11:25 AM EDT THYROID ULTRASOUND GUIDED BIOPSY PROCEDURE NOTE Indication: 1.6cm TR4 right sided thyroid nodule Supervised by: Dr. Harper Date: 11/22/2022 Informed consent was obtained after a discussion of the nature of the procedure, its risks and benefits. Immediately prior to the start of the procedure a time out was taken: - The patient's identity was confirmed using two identifiers - The intended procedure, patient positioning and availability of all required equipment was also confirmed. - The proper site/side of the nodule was confirmed by visualization with ultrasound. The biopsy site on the patient's neck was prepared using isopropyl alchohol. Four passes of a 25g needle were performed at the site. The needle placement was ultrasound guided. The needle was visualized in the nodule in each pass. - Biopsy was performed of: 1.6cm TR4 right thyroid nodule The procedure was well tolerated by the patient without any complications. The patient was given a thyroid FNA post-procedure handout upon completion Supervised by attending physician, Dr. Harper. Cesar Pineda DO Endocrinology Fellow [facility] * Cornell Harper MD - 11/22/2022 11:25 AM EDT I was present for the entire thyroid biopsy procedure and agree with the procedure. I agree with Graciela's assessment and plan regarding initiation levothyroxine and high dose Vitamin D supplementation documented in this encounter Plan of Treatment Upcoming Encounters Date Type Department Care Team (Late st Contact Info) Description 02/26/2024 10:15 AM EDT Office Visit Endocrinology at [facility] [place] [address] Cornell Harper MD [facility] [place] [address] documented as of this encounter Procedures Procedure Name Priority Date/Time Associated Diagnosis Comments NON-HOGSHEAD WRECKER FINAL REPORT Routine 11/22/2022 11:12 AM EDT CYTOPATHOLOGY NON-GYNECOLOGICAL Routine 11/22/2022 11:12 AM EDT Thyroid nodule documented in this encounter Results * Non-Moisture Meter Reader Final Report (11/22/2022 11:12 AM EDT) Non-Moisture Meter Reader Final Report [id number] ? Location: The signing pathologist has (i) examined the relevant preparation(s) for the specimen(s) and (ii) rendered or confirmed the diagnosis(es). . ? Non-Moisture Meter Reader Final DIAGNOSIS Nondiagnostic Electronically signed by: ?Kwaku YIP, Patricia Verified: ??11/23/2022 15:21 ??Pathologist Performed at: ??-[facility] Dept. of Pathology, [place] [address] Shipyard Helper: Irene Jimenez MD, AP, ??CLIA Certificate: [id number] DISCUSSION Thyroid, right (FNA): Nondiagnostic/Uns atisfactory (see note). Specimen processed and examined but nondiagnostic due to insufficient cellularity. Rare groups of follicular epithelial cells and a small amount of colloid are present. A repeat aspiration should be considered if clinically indicated. CLINICAL INFORMATION Specimen Source : Thyroid, right (FNA) Pertinent Clinical Data and Significant Therapy: 1.6cm right-sided TR4 thyroid nodule Clinical Impression : 1.6cm right-sided TR4 thyroid nodule Pertinent Radiologic Findings ??: (not provided) Gross Description: Received ??in CytoLyt approximately 30 mL total volume of ?? clear, pink fluid. Total Preparation: Liquid-Based Prep 1. A separate sample was received for potential molecular testing. [facility] 11/22/2022 11:1 2 AM EDT Cesar Pineda DO PATHOLOGY/CYTOLOGY ORDERABLES Performing Organization Address City/[facility]/[place] [address] * Cytopathology Non-Gynecological (11/22/2022 11:12 AM EDT) AP Specimen 11/22/2022 11:1 2 AM EDT 11/22/2022 11:12 AM EDT Narrative [facility] - 11/22/2022 11:12 AM EDT Specimen requisition ordered. ??Separate Pathology report to follow Cornell Harper MD PATHOLOGY/CYTOLOGY ORDERABLES Performing Organization Address [facility] [place] [address] documented in this encounter Visit Diagnoses Diagnosis Thyroid nodule Nontoxic uninodular goiter Hypothyroidism, unspecified type Vitamin D deficiency Unspecified vitamin D deficiency documented in this encounter Care Teams Accountant Tax Relationship Specialty Start Date End Date Carina Davis PA [address] [place] [id number] PCP - General Family Medicine 03/02/22 documented as of this encounter
--- OUTSIDE RECORDS SUMMARY | 2024-01-25 00:27 | XMS_ITS | Encounter Summary ---
Author Organization [facility] [place] [address] Care Team Providers Care Slicing Machine Tender Name Role Phone Carina Davis Primary Care Provider [phone] Encounter Details Date Type Department Care Team (Late st Contact Info) Description 11/20/2022 10:30 AM EDT Office [place] [phone] Cesar Pineda, [facility] [place] [address] High serum thyroid stimulating hormone (TSH); Hypothyroidism, unspecified type; Thyroid nodule; Vitamin D deficiency Social History [...] Sign Reading Time Taken Comments Blood Pressure 123/84 11/20/2022 10:19 AM EDT Pulse 74 11/20/2022 10:19 AM EDT Temperature 36.5 ??C (97.7 ??F) 11/20/2022 10:19 AM E DT Respiratory Rate - - Oxygen Saturation 96% 11/20/2022 10:19 AM EDT Inhaled Oxygen Concentration - - Weight - - Height 157.5 cm (5' 2) 11/20/2022 10:19 AM EDT Body Mass Index - - documented in this encounter Progress Notes * Cesar Pineda, DO - 11/20/2022 10:30 AM EDT Images from the original note were not included. Ms. Alyssa Burnham is an 77 y.o. female who presents for ongoing care of thyroid nodule. Interval history: She has generally been well since her last visit. No major changes in her health. Interestingly shetells me she had an eye surgery for double vision however her doctor told her he would not do anything more with her eyes until she addressed her thyroid. Unclear if this is because Graves' eye disease is suspected. She tells me she has been falling. She has not had any fractures. She has pain in her knees which may be contributing to the falls. Patient Active Problem List Diagnosis ??? 04/01/2018 [...] by mouth daily., Disp: , Rfl: ??? albuterol (PROVENTIL HFA;VENTOLIN [...] needed. Cold sores, Disp: , Rfl: ??? cephALEXin (KEFLEX) 500 mg capsule, Take 2,000 mg by mouth as needed. Takes 1 hour prior to dental work., Disp: , Rfl: has a past medical history of Asthma, Bowel disease, Gastroesophageal reflux, Heart valve disease, Intraoperative complication, Irregular heart beat, Mental health problem, and Vertigo. Physical Exam: HR 74, BP 123/84 Wt & BMI By Encounter Date Flowsheet Row Office Visit from 07/18/2018 in Orthopaedics at [facility] Office Visit from 07/03/2018 in Orthopaedics at [facility] Weight 75.8 kg (167 lb) [as of 06/25/18] 1 07/18/2018 1202 76.2 kg (167 lb 14.4 oz) 1 07/03/2018 1119 BMI 30.53 1 07/18/2018 1202 30.71 1 07/03/2018 1119 General: no acute distress, pleasant, sitting comfortably Face: not round or red Eyes: no lid lag; normal eye movements Neck: no palpable mass Cardio: RRR Respiratory: symmetrical chest expansion, breathing comfortably on room air Lower Extremity: trace edema, significant tenderness over anterior tibia Neurological: no tremors Psychological: alert/oriented to person, place, time; normal affect; memory intact; normal judgement/insight Radiology Studies: ENDOCRINOLOGY THYROID ULTRASOUND REPORT Patient:Alyssa Burnham, [id number] Date of exam: 11/21/2022 Indication: thyroid nodule Comparison: clinic US 05/2022 Performed by: Cesar Pineda DO Real time images of the thyroid gland were obtained using a BK US machine. All measurements are given as Longitudinal/Sagittal x AP x Transverse. Right Lobe: The right lobe measures 3.2cm x 1.4cm x 1.6cm. Nodule 1: 1.6cm x 1.2cm x 1.4cm. Solid, hypoechoic, wider than tall, smooth borders, no calcifications. TR4 Nodule 2: 0.5cm x 0.2cm x 0.3cm. Hypoechoic, likely solid, smooth border, wider than tall. Difficult to characterize due to small size. Likely TR4 Isthmus: The isthmus measures 2mm. Left Lobe: The left lobe measures 3.1cm x 1.3cm x 1.3cm. Nodule 1: 0.8cm x 0.4cm x 0.6cm. Likely solid, hypoechoic, wider than tall, smooth border, no calcifications. TR4 Lateral neck: I examined the lateral neck regions and saw no morphologically abnormal lymph nodes. Impression: Dominant right sided nodule is TR4 and measures 1.6cm which meets criteria to recommend an FNA. Other small nodules as noted above. Laboratory Data: Latest Reference Range & Units 11/20/22 11:40 25-OH Vit D Total 21 - 100 ng/mL 14 (L) 25-OH Vit D Interp Deficient T3, Total 80 - 200 ng/dL 89 Free T4 0.93 - 1.70 ng/dL 0.78 (L) TSH 0.27 - 4.20 mcIU/mL 4.57 (H) (L): Data is abnormally low (H): Data is abnormally high Assessment / Plan: 76yo woman presents for follow up of an incidentally discovered thyroid nodule. It is a TR4 nodule.It was 1.5cm six months ago and is slightly larger today. FNA is recommended. We discussed at length the risks and benefits of this and she would like to proceed with it so we will schedule a time for her to return to clinic. Her PCP recently found her TSH to be elevated. I re-checked it along with a free T4 and this confirms hypothyroidism. In addition, her eye doctor seems to have raised the possibility of thyroid eye disease so I will check TSI and TPO antibodies as well. Due to hypothyroidism with an enlarging thyroid nodule will start levothyroxine 50mcg. She has no cardiac history. Due to tibial tenderness I checked Vit D and it is low. Will start a course of high dose vit D 50,000 units to be followed by OTC maintenance dose. -will schedule a return visit for FNA -start levothyroxine 50mcg and re-check TSH in 6 weeks. Goal TSH 0.5 to 2. -start Vit D 50,000u weekly for 8 weeks then maintenance dose 1,000u daily?? -TSI and TPO pending Discussed with attending physician, Dr. Montiel. Cesar Pineda DO Endocrinology Fellow * Sheila Montiel MD - 11/20/2022 10:30 AM EDT Case discussed with Dr. Pineda. I agree with the assessment and plan as documented and was involved in all medical decision making. Agree with starting Levothyroxine and proceeding with FNA of thyroid nodule. Replete vitamin D. Sheila Montiel MD Quality Control [place] marshal Endocrinology Section [facility] documented in this encounter Plan of Treatment Upcoming Encounters Date Type Department Care Team (Late st Contact Info) Description 02/26/2024 10:15 AM EDT Office Visit Endocrinology at [facility] [place] [address] Cornell Harper MD [facility] [place] [address] documented as of this encounter Procedures Procedure Name Priority Date/Time Associated Diagnosis Comments HC THYROID STIMULATING HORMONE, SERUM Routine 11/20/2022 11:40 AM EDT Thyroid nodule HC VENIPUNCTURE Routine 11/20/2022 11:40 AM EDT High serum thyroid stimulating hormone (TSH) HC THYROID PEROXIDASE ANTIBODY Routine 11/20/2022 11:40 AM EDT High serum thyroid stimulating hormone (TSH) VITAMIN D, 25-HYDROXY Routine 11/20/2022 11:40 AM EDT HC TOTAL T3 Routine 11/20/2022 11:40 AM EDT High serum thyroid stimulating hormone (TSH) T4, FREE Routine 11/20/2022 11:40 AM EDT documented in this encounter Results * (ABNORMAL) Vitamin D, 25-Hydroxy (11/20/2022 11:40 AM EDT) [facility] 25-OH Vit D Total 14(L) 21 - 100 ng/mL [facility] 25-OH Vit D Interp Deficient [facility] Blood Venous Draw / Unknown 11/20/2022 11:40 AM EDT 11/20/2022 11:53 AM EDT Narrative Resulting Agency Comment Spec In Lab Cesar Pineda DO CHEMISTRY ORDERABLE S Performing Organization Address [facility]/ZIP Co de Phone Number [facility] [place] [address] * (ABNORMAL) T4, free (11/20/2022 11:40 AM EDT) [facility] Free T4 0.78(L) 0.93 - 1.70 ng/dL [facility] Comment: Reference Interval (ng/dL): Females: ??First Trimester: 0.97-1.68 ??Second Trimester: 0.77-1.51 ??Third Trimester: 0.77-1.49 Blood 11/20/2022 11:4 0 AM EDT 11/20/2022 11:53 AM EDT Narrative Resulting Agency Comment Spec In Lab Cesar Pineda DO CHEMISTRY ORDERABLE S Performing Organization Address City/[facility]/ZIP Co de Phone Number [facility] [place] [address] * (ABNORMAL) TSH [place] (11/20/2022 11:40 AM EDT) TSH 4.57(H) 0.27 - 4.20 mcIU/mL [facility] Comment: Reference Interval (mcIU/mL): Females: ??First Trimester: 0.23-3.88 ??Second Trimester: 0.22-3.90 ??Third Trimester: 0.44-4.66 Blood 11/20/2022 11:4 0 AM EDT 11/20/2022 11:52 AM EDT Narrative Resulting Agency Comment Spec In Lab Milagros Jaramillo MD CHEMISTRY ORDERAB LES [facility] [place] [address] * Thyroid Stimulating Immunoglobulins (11/20/2022 11:40 AM EDT) TSI <0.10 <=0.55 IU/L [facility] Blood 11/20/2022 11:4 0 AM EDT 11/20/2022 12:32 PM EDT Narrative Resulting Agency Comment Spec In Lab Sheila Montiel MD IMMUNOLOGY ORDERABLE S Performing Organization Address City/[facility]/ZIP Co de Phone Number [facility] [place] [address] * Thyroid peroxidase antibody (11/20/2022 11:40 AM EDT) Thyroperox Ab <10 <=34 IU/mL [facility] Blood 11/20/2022 11:4 0 AM EDT 11/20/2022 12:32 PM EDT Narrative Resulting Agency Comment Spec In Lab Sheila Montiel MD IMMUNOLOGY ORDERABLE S [facility] [place] [address] * T3 Total (11/20/2022 11:40 AM EDT) T3, Total 89 80 - 200 ng/dL [facility] Blood 11/20/2022 11:4 0 AM EDT 11/20/2022 11:52 AM EDT Narrative Resulting Agency Comment Spec In Lab Sheila Montiel MD CHEMISTRY ORDERABLES [facility] [place] [address] documented in this encounter Visit Diagnoses Diagnosis High serum thyroid stimulating hormone (TSH) Hypothyroidism, unspecified type Thyroid nodule Nontoxic uninodular goiter Vitamin D deficiency Unspecified vitamin D deficiency documented in this encounter Care Teams Slicing Machine Tender Relationship Specialty Start Date End Date Carina Davis PA [address] [address] PCP - General Family Medicine 03/02/22 documented as of this encounter
--- OUTSIDE RECORDS SUMMARY | 2024-01-25 00:27 | XMS_ITS | Encounter Summary ---
[place] [address] Care Team Providers Care Assistant Professor Of Education Name Role Phone Carina Davis Primary Care Provider Reason for Referral * Consultation (Routine) - Closed Specialty Diagnoses / Procedures Referred By Contfermín t Referred To Contact Endocrinology Diagnoses Thyroid nodule Carina Davis PA [address] [place] [address] [facility] [address] [place] [phone] Referral ID Status Reason Start Date Expiration Date V isits Requested Visits Authorized [id number] Closed Consult, Test & Treat PCP Updated and/or Approved 03/02/2022 03/02/2023 6 6 Encounter Details Date Type Department Care Team (Late st Contact Info) Description 03/02/2022 Transcribe Orders eDH Incoming Referrals [phone] Carina Davis PA [address] [place] [address] Thyroid nodule Social History Tobacco Use Types [...] AM EDT Office Visit Endocrinology at [facility] [place] [address] Cornell Harper MD [facility] [place] [address] Scheduled Referrals Name Type Priority Associated Diagnoses Order Schedule Referral to Endocrinology Outpatient Referral Routine Thyroid nodule Ordered: 03/02/2022 documented as of this encounter Visit Diagnoses Diagnosis Thyroid nodule Nontoxic uninodular goiter documented in this encounter Care Teams Assistant Professor Of Education Relationship Specialty Start Date End Date Carina Davis PA [address] [place] [phone] PCP - General Family Medicine 03/02/22 documented as of this encounter
--- OUTSIDE RECORDS SUMMARY | 2024-01-25 00:28 | XMS_ITS | Encounter Summary ---
[place] [address] Care Team Providers Care Lead Mason Tender Name Role Phone Samnicholas Baylee Nicholas JORDAN Primary Care Provider [phone] Encounter Details Date Type Department Care Team (Latest Contact Info) Description 03/28/2018 12:40 PM EDT Clinical [place] [address] Prosthetic hip implant failure, initial encounter; Pain of right lower extremity Social History Tobacco Use Types Packs/Day Years Used Date Smoking Tobacco: Former Cigarettes Smokeless Tobacco: Never Comments:in college Alcohol Use Standard Drinks/Week Comments No 0 (1 standard drink = 0.6 oz pur e alcohol) Sex and Gender Information Value Date Recorded Sex Assigned at Not on file Gender Identity Not on file Sexual Orientation Not on file documented as of this encounter Progress Notes * Delma Hernandez RN - 03/28/2018 12:40 PM EDT PAT questionnaire reviewed with patient while in Pre Admission testing. Pre- operative instruction booklet reviewed. Patient verbalizes a good understanding of all information reviewed. PLAN: Testing: T&S,lab Special medication instructions: Procedure date: Per pt ,may be 9-17. documented in this encounter Plan of Treatment Upcoming Encounters Date Type Department Care Team (Late st Contact Info) Description 02/26/2024 10:15 AM EDT Office Visit Endocrinology at [facility] [place] [address] Cornell Harper MD [facility] [place] [address] Pending Results Name Type Priority Associated Diagnoses Date /Time EKG 12 Lead ECG Routine Prosthetic hip implant failure, initial encounter Pain of right lower extremity 03/28/2018 1:14 PM EDT documented as of this encounter Procedures Procedure Name Priority Date/Time Associated Diagnosis Comments EKG 12-LEAD Routine 03/28/2018 1:14 PM EDT EKG 12-LEAD Routine 03/28/2018 1:14 PM EDT Prosthetic hip implant failure, initial encounter Pain of right lower extremity documented in this encounter Results * EKG 12 Lead (03/28/2018 1:14 PM EDT) Ventricular rate 66 BPM MUSE SYSTEM Atrial Rate 66 BPM MUSE SYSTEM P-R Interval 154 ms MUSE SYSTEM QRS Duration 74 ms MUSE SYSTEM Q-T Interval 406 ms MUSE SYSTEM QTC Calculated (Bezet) 425 ms MUSE SYSTEM Calculated P [place] 50 degrees MUSE SYSTEM Calculated R [place] 30 degrees MUSE SYSTEM Calculated T [place] 29 degrees MUSE SYSTEM INTERPRETATION Normal sinus rhythm Low voltage QRS Borderline ECG When compared with ECG of 02-FEB-2014 11:31, No significant change was found Confirmed by MD Dimitri, He ([id number]) on 03/28/2018 4:35:47 PM MUSE SYSTEM 03/28/2018 1:14 PM EDT 03/28/2018 4:35 PM EDT Noemi Hudson MD ECG ORDERABLES MUSE SYSTEM documented in this encounter Visit Diagnoses Diagnosis Prosthetic hip implant failure, initial encounter Pain of right lower extremity documented in this encounter Care Teams Lead Mason Tender Relationship Specialty Start Date End Date Baylee Elena APRN PCP - General Family Medicine 03/25/18 03/01/22 documented as of this encounter
--- OUTSIDE RECORDS SUMMARY | 2024-01-25 00:28 | XMS_ITS | Encounter Summary ---
[place] [address] Care Team Providers Care Bicycle Rental Clerk Name Role Phone Samnicholas Baylee Nicholas JORDAN Primary Care Provider [phone] Reason for Visit * Reason Onset Date Comments Other 04/03/2018 Encounter Details Date Type Department Care Team (Late st Contact Info) Description 04/03/2018 Telephone [place] [phone] Chelsi Bermudez RMA Other Social History Tobacco Use Types Packs/Day Years [...] encounter Miscellaneous Notes * Telephone Encounter - Chelsi Bermudez RMA - 04/03/2018 2:09 PM EDT Subjective: Toe Nails need clipping Lee questions/Assessment: Alyssa called and wondered if Dr Hudson would authorize A nurse visit to go to her house to trim her toe nails. She stated that it has been 12 weeks since she had them cut and they are getting long and bothering her. They are tender. Plan: I reviewed with Dr Hudson. He stated that he does not want her to cut her nails. He wouldlike to have her go to a medial professional to have them cut or wait to have them cut. Alyssa has agreed to this plan. She will song philip poditrist or her PCP. Patient/Responsible republican voices an understanding of advice? yes documented in this encounter Plan of Treatment Upcoming Encounters Date Type Department Care Team (Late st Contact Info) Description 02/26/2024 10:15 AM EDT Office Visit Endocrinology at [facility] [place] [address] Cornell Harper [place] [address] documented as of this encounter Visit Diagnoses Not on filedocumented in this encounter Care Teams Bicycle Rental Clerk Relationship Specialty Start Date End Date Baylee Elena, NIKKI PCP - General Family Medicine 03/25/18 03/01/22 documented as of this encounter
--- OUTSIDE RECORDS SUMMARY | 2024-01-25 00:28 | XMS_ITS | Encounter Summary ---
Author Organization [facility] [place] [address] Care Team Providers Care Stereo Equipment Salesperson Name Role Phone Baylee Elena APRN Primary Care Provider [phone] Reason for Visit * Reason Onset Date Comments Physical Therapy 05/01/2018 Encounter Details Date Type Department Care Team (Late st Contact Info) Description 05/01/2018 [place]phone [place] [phone] Noemi Hudson MD [facility] [place] [address] Physical Therapy Social History Tobacco Use Types Packs/Day Years [...] encounter Miscellaneous Notes * Telephone Encounter - Lily Noel - 05/01/2018 3:30 PM EDT Mariana from [facility] in [place], [place] called requesting a PT referral and op note from Dr. Hudson's AMBER revision on Alyssa. This was faxed over via Epic this afternoon. documented in this encounter Plan of Treatment Upcoming Encounters Date Type Department Care Team (Late st Contact Info) Description 02/26/2024 10:15 AM EDT Office Visit Endocrinology at [facility] [place] [address] Cornell Harper [place] [facility] [place] [address] documented as of this encounter Visit Diagnoses Not on filedocumented in this encounter Care Teams Stereo Equipment Salesperson Relationship Specialty Start Date End Date Baylee Elena APRN PCP - General Family Medicine 03/25/18 03/01/22 documented as of this encounter
--- OUTSIDE RECORDS SUMMARY | 2024-01-25 00:28 | XMS_ITS | Encounter Summary ---
[place] [address] Care Team Providers Care Mva Operator Name Role Phone Baylee Elena APRN Primary Care Provider [phone] Reason for Visit * Reason Onset Date Comments Other 07/05/2018 Dislocation 06/16 08/02 Encounter Details Date Type Department Care Team (Late st Contact Info) Description 07/05/2018 Tele[place] [phone] Chelsi Bermudez RMA Other (Dislocation 07/05/18) Social History Tobacco Use Types Packs/Day Years [...] Telephone Encounter - Chelsi Bermudez RMA - 07/05/2018 3:13 PM EST Called Alyssa and KENROY. I let her know that Dr Hudson would like to see her in clinic on 07/18/18 at 1:00pm. I asked that she call us at [phone] Opt 2 for schding or Opt 3 for Nursing/MA call center. * Telephone Encounter - Chelsi Bermudez RMA - 07/05/2018 2:31 PM EST Subjective: Dislocation of R Hip DOI 07/05/18 SP Surgeon Role Noemi Hudson MD Primary Richards, Sarah Higginbotham MD Resident-Surgeon Jad Procedure Laterality Anesthesia @TOTAL HIP REVISION ARTHROPLASTY, COMPLETE (WRVU 30.28) Right DOS 04/01/18 Lee questions/Assessment: Alyssa called to let Dr Hudson know that this morning at 3:30 am she was up and she went to light her stove and she heard a pop and to the floor she went. She was not able to get up. She called friends who then call the ambulance and ws transported to [facility] in [facility]. They did a manipulation and were able to put her hip back in place. She was placed into a knee immobilizer. She is being discharged today and was told she would need follow up with Dr Hudson. Plan: I let her know that she needs to ask them to push all images and ed notes to [facility] so Dr Hudson will have them for review. I let her know that I will send this message to Dr Hudson and we will call her with a new plan for follow up. Patient/Responsible republican voices an understanding of advice? yes documented in this encounter Plan of Treatment Upcoming Encounters Date Type Department Care Team (Late st Contact Info) Description 02/26/2024 10:15 AM EDT Office Visit Endocrinology at [facility] [place] [address] Cornell Harper MD [facility] [place] [address] documented as of this encounter Visit Diagnoses Not on filedocumented in this encounter Care Teams Mva Operator Relationship Specialty Start Date End Date Baylee Elena APRN PCP - General Family Medicine 03/25/18 03/01/22 documented as of this encounter
--- OUTSIDE RECORDS SUMMARY | 2024-01-25 00:28 | XMS_ITS | Encounter Summary ---
Author Organization [facility] Address [facility] [place] [address] Care Team Providers Care Shingles Roofer Name Role Phone Ulices Baylee Mayorga APRN Primary Care Provider [phone] Reason for Visit * Reason Comments Follow Up Surgery R AMBER Rev 04/01/18 Encounter Details Date Type Department Care Team (Late st Contact Info) Description 07/03/2018 11:30 AM EST Office [place] [phone] Noemi Hudson MD [facility] [place] [address] History of bilateral hip replacements Social History Tobacco Use Types Packs/Day Years [...] Sign Reading Time Taken Comments Blood Pressure 146/66 07/03/2018 11:19 AM EST Pulse 69 07/03/2018 11:19 AM EST Temperature - - Respiratory Rate - - Oxygen Saturation - - Inhaled Oxygen Concentration - - Weight 76.2 kg (167 lb 14.4 oz) 018 11:19 AM EST Height 157.5 cm (5' 2) 07/03/2018 11:1 9 AM EST Body Mass Index 30.71 07/03/2018 11:19 AM EST documented in this encounter Progress Notes * Noemi Hudson MD - 07/03/2018 11:30 AM EST Images from the original note were not included. Department of Orthopaedics Division of Adult Joint Reconstructive Surgery Progress Note CHIEF COMPLAINT: Interim evaluation s/p Right Revision Hip Replacement HPI: Alyssa Burnham is a 72 y.o. year old female being seen today in the clinic. The patientreturns today for routine evaluation after Right revision total hip replacement. Excellent progressis noted in terms of pain and holiness of function. QUESTIONNAIRE RESPONSES: General Health, Prior Treatments, PreExisting Condition, Health Habits, About You 07/03/2018 PROMIS-10 General Health - PROMIS-10 Quality of Life - PROMIS-10 Physical Health - PROMIS-10 Mental Health - PROMIS-10 Social Activity - PROMIS-10 Everyday Activities - PROMIS-10 Pain - PROMIS-10 Fatigue - PROMIS-10 Social Roles - PROMIS-10 Anxious or Depressed - PROMIS PHYSICAL SCORE (range 16-68) - PROMIS MENTAL SCORE (range 21-68) - HOOS JR Scores 70.43 AMBER Grade - Live Alone - Combined Household Income - # People Supported - Orthopeadics [facility] Response 07/03/2018 HOOS JR Scores 70.43 Spine [facility] Response 07/03/2018 HOOS JR Scores 70.43 VITALS: BP Readings from Last 1 Encounters: 07/03/18 146/66 Pulse Readings from Last 1 Encounters: 07/03/18 69 Height: 157.5 cm (5' 2) Weight: 76.2 kg (167 lb 14.4 oz) Body mass index is 30.71 kg/m??. PHYSICAL EXAM: The patient is alert, healthy looking, and is oriented to time, place, and person. The patient demonstrates good hip motion, stability, and strength bilaterally. ASSESSMENT AND PLAN:Ms. Burnham is a 72 y.o. year old female s/p Right revision hip replacement. This patient is functioning well after revision total hip arthroplasty. Ultimate failure may occur due to mechanical wear, loosening or breakage. Follow-up is recommended to assess for the possibility of failure. Plan to return to clinic at her 1 year anniversary from the date of revision surgery. Noemi Hudson MD documented in this encounter Plan of Treatment Upcoming Encounters Date Type Department Care Team (Late st Contact Info) Description 02/26/2024 10:15 AM EDT Office Visit [facility]inology at [facility] [place] [address] Cornell Harper MD [facility] [place] [address] documented as of this encounter Visit Diagnoses Diagnosis History of bilateral hip replacements Hip joint replacement by other means documented in this encounter Care Teams Shingles Roofer Relationship Specialty Start Date End Date Baylee Elena APRN PCP - General Family Medicine 03/25/18 03/01/22 documented as of this encounter
--- OUTSIDE RECORDS SUMMARY | 2024-01-25 00:28 | XMS_ITS | Encounter Summary ---
[place] [address] Care Team Providers Care Therapist'S Assistant Name Role Phone Jamarcus Rodriguez MD Primary Care Provider [phone] Reason for Visit * Reason Comments [facility] AMBER DOS Rt AMBER DOS 2008 Encounter Details Date Type Department Care Team (Late st Contact Info) Description 01/22/2015 11:00 AM EDT Office Visit [place] [phone] Betty Dong APRN [facility] [place] [address] 02/04/2014 Dr. Holland Left Anterior AMBER; Status post right hip replacement, Dr. Morales 2008 Discharge Disposition: Home Social History Tobacco Use Types Packs/Day Years Used Date Smoking Tobacco: Former Smokeless Tobacco: Never Comments:in college Alcohol Use Standard Drinks/Week Comments No 0 (1 standard drink = 0.6 oz pur e alcohol) Sex and Gender Information Value Date Recorded Sex Assigned at Not on file Gender Identity Not on file Sexual Orientation Not on file documented as of this encounter Last Filed Vital Signs Vital Sign Reading Time Taken Comments Blood Pressure 130/63 01/22/2015 11:17 AM EDT Pulse 66 01/22/2015 11:17 AM EDT Temperature - - Respiratory Rate - - Oxygen Saturation - - Inhaled Oxygen Concentration - - Weight 70.3 kg (155 lb) 01/22/2015 11:17 AM EDT verbal Height 157.5 cm (5' 2) 01/22/2015 11:17 AM EDT verbal Body Mass Index 28.35 01/22/2015 11:17 AM EDT documented in this encounter Progress Notes * Betty Dong [facility], SENIOR LINUX ENGINEER - 01/22/2015 11:25 AM EDT Arthroplasty/Orthopaedic History: 1. Left hip AMBER Dr. Holland 02/04/2014 2. Right hip AMBER Dr. Morales 12/02/2008 Chief Complaint: Routine rotary follow up for both hip AMBER HPI: Alyssa BlandObed is a very pleasant 69 y.o. year-old female who presents for a one year follow up and approximately six years follow-up of the above procedure. The patient has been doing very well and her pain is markedly improved over preoperative status. No fevers, chills, nausea, vomiting, or symptoms of infection. Alyssa has been ambulating with no assistive devices and working on a home exercise program. She remains very active. She does spend several months out of the year caring for her elderly Parents. She is no taking any penitentiary pain medicine. Other than minor falls,she has had no lasting pain associated with these falls. No infections. She is up to date with dental work and appropriate antibiotics. ROS: Denies fever, chills, nausea, vomiting, vision change, shortness of breath, chest pain, visionchanges, headaches, bowel or bladder problem, ear, nose, sinus problem, neuro or psychiatric, or endocrine disorder not addressed above. Patient's medications, allergies, past medical, surgical, social and family histories were reviewedand updated as appropriate. Physical Exam: Filed Vitals: 01/22/15 1117 BP: 130/63 Pulse: 66 Height: 157.5 cm (5' 2) Weight: 70.308 kg (155 lb) Body mass index is 28.34 kg/(m^2). General: Well-appearing female in no acute distress. Alert and Oriented x 3 and answers all questions appropriately. HEENT - normocephalic, atraumatic, sclera clear, nose patent and throat clear. c-spine with good and full ROM Chest: RR: 12. Non-labored. Orthopaedic Both hip Exam: The both hip incisions are well healed, with no signs of infection. I have made the following determinations: Post Op Right Hip Exam: Leg length: Longer leg: equal Limb Length discrepancy: 0cm Motion: Flexion contracture: 0 Total degrees of Flexion:115 Total degrees of Abduction:25 Total degrees of Ext Rotation: 35 Total degrees of Internal Rotation: 15 Gait Abnormality: Normal Pulses Palpable: Right PT: Yes Right DP:Yes Motor/Sensory: Right Distal Motor: Normal Distal Sensory: Normal Hip Abductors 5 Trendelenburg test: negative Post Op Left Hip Exam: Leg Length: Longer leg: equal Limb Length discrepancy: 0cm Motion: Flexion contracture: 0 Total degrees of Flexion: 110 Total degrees of Abduction: 30 Total degrees of Ext Rotation: 30 Total degrees of Internal Rotation: 10 Gait Abnormality: Normal Pulses Palpable: Left PT: Yes Left DP: Yes Motor/Sensory: Left Distal Motor: Normal Distal Sensory: Normal Hip Abductors: 5 Trendelenburg test: negative X-RAYS: Multiple radiographic views were obtained at my request and reviewed with the patient. Bothhip X-rays show a well-placed prosthesis with no evidence of fracture, subsidence, loosening, or periprosthetic complication. On the right side there is no change in the heterotopic ossification as compared to her previous x-rays. Questionnaire Responses: myD-H Hip & Knee 03/21/2012 12/22/2013 01/28/2014 03/03/2014 04/22/2014 01/13/2015 MODEMS Expectation - 56.25 100 - - - MODEMS Satisfaction 100 - - 100 100 100 VR12 - Physical Component Summary 58.11 22.91 29.13 29.48 50.27 45.06 VR12 - Mental Component Summary 33.89 65.75 61.32 49.25 62.52 56.26 PROMIS-10 General Health - Very Good Very Good Very Good Very Good Very Good PROMIS-10 Quality of Life - Very Good Very Good Very Good Very Good Very Good PROMIS-10 Physical Health - Very Good Very Good Very Good Good Very Good PROMIS-10 Mental Health - Very Good Excellent Very Good Very Good Very Good PROMIS-10 Social Activity and Relationship Satisfaction - Good Very Good Very Good Excellent Very Good PROMIS-10 Social Roles at Home and Work - Very Good Very Good Very Good Very Good Very Good PROMIS-10 Everyday Physical Activities - Moderately Completely Moderately Completely Completely PROMIS-10 Anxious or Depressed last 7 days - Sometimes Rarely Rarely Rarely Sometimes PROMIS-10 Fatigue last 7 days - Moderate Moderate Moderate Mild Mild PROMIS-10 Pain last 7 days - 5 6 1 1 0 -No Pain PROMIS PHYSICAL HEALTH SCORE (range 16-68) - 42.3 47.7 44.9 50.8 57.7 PROMIS MENTAL HEALTH SCORE (range 21-68) - 48.3 56 53.3 56 50.8 Arthritis Ladder - Hip - Footwear/orthotics, Heat and ice therapy, Information & education, Injected Cortisone, Physical therapy, Regular exercise, Walking aids Heat and ice therapy, Information & education, Injected Cortisone, Over the counter anti-inflammatory drugs (Advil, Aspirin, Aleve), Physical therapy, Walking aids - - - ASSESSMENT/PLAN: Ms. Burnham is a 69 y.o. year old female one year LEFT hip AMBER and approximately six years post-op on the Right hip AMBER and doing well. Continue weightbearing as toleratedand working on range of motion, and we will see her back in 2 years for repeat examination. She will need both hip X- rays at that time. Patient may return to normal activities as her pain and function allow. Activity precautions to prevent premature implant failure and joint specific exercises reviewed. We discussed the appropriate precautions surrounding dental prophylaxis and they could call the office for a prescription prior to any dental work for the lifetime of the joint replacement. We also discussed the importance maintaining good foot care and giving prompt attention to any source of infection throughout the body including foot ulcers and urinary tract infections. All questions were answered. Signed: Betty Dong APRN 01/22/2015 documented in this encounter Plan of Treatment Upcoming Encounters Date Type Department Care Team (Late st Contact Info) Description 02/26/2024 10:15 AM EDT Office Visit Endocrinology at [facility] [place] [address] Cornell Harper MD [facility] [place] [address] documented as of this encounter Visit Diagnoses Diagnosis 02/04/2014 Dr. 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 Morales 2009 Hip joint replacement by other means documented in this encounter Care Teams Therapist'S Assistant Relationship Specialty Start Date End Date Jamarcus Rodriguez MD [address] [place] [address] PCP - General 06/07/10 03/24/18 documented as of this encounter
--- OUTSIDE RECORDS SUMMARY | 2024-01-25 00:28 | XMS_ITS | Encounter Summary ---
[place] [address] Care Team Providers Care Chairlift Operator Name Role Phone Jamarcus Rodriguez MD Primary Care Provider [phone] Reason for Visit * Reason Onset Date Comments Reminder Appointment 12/22/2014 Encounter Details Date Type Department Care Team (Late st Contact Info) Description 12/22/2014 Telephone [place] [phone] Lance Holland [place] [address] [place] [address] Reminder Appointment Social History Tobacco Use Types Packs/Day Years [...] encounter Miscellaneous Notes * Telephone Encounter - Angeles Cedeno - 12/25/2014 11:48 AM EDT Patient Scheduled * Telephone Encounter - Cate Cha - 12/22/2014 9:33 AM EDT Spoke with Alyssa she was just headed out the door to schedule a reminder appointment for her joints. At the end of May, Dr. Holland relocated his orthopaedic practice to [facility] in [place], [place]. You are on our list to schedule a re- evaluation your total joint replacement performed by Dr. Holland. If you choose to remain at [facility], we are more than happy to schedule this follow-up with one of our total joint associate providers at this time. If you choose to continue to follow with Dr. Holland, please call his office at [facility] in [place], [place] at [phone] and they would be happy to assist you. documented in this encounter Plan of Treatment Upcoming Encounters Date Type Department Care Team (Late st Contact Info) Description 02/26/2024 10:15 AM EDT Office Visit Endocrinology at [facility] [place] [address] Cornell Harper MD [facility] [place] [address] documented as of this encounter Visit Diagnoses Not on filedocumented in this encounter Care Teams Chairlift Operator Relationship Specialty Start Date End Date Jamarcus Rodriguez MD [address] [place] [address] PCP - General 06/07/10 03/24/18 documented as of this encounter
--- OUTSIDE RECORDS SUMMARY | 2024-01-25 00:28 | XMS_ITS | Encounter Summary ---
Author Organization [facility] Address [facility] [place] [address] Care Team Providers Care Solar Energy Technician Name Role Phone Ulices Baylee Mayorga APRN Primary Care Provider [phone] Reason for Visit * Auth/Cert Specialty Diagnoses / Procedures Referred By Calin vasquez Referred To Contact Diagnoses Prosthetic hip implant failure, initial encounter Right AMBER mechanical failure Procedures PRO REVISE TOTAL HIP REPLACEMENT @TOTAL HIP REVISION ARTHROPLASTY, COMPLETE (WRVU 30.28) Referral ID Status Reason Start Date Expiration Date Visits Re quested Visits Authorized [id number] 1 1 Encounter Details Date Type Department Care Team (Latest Contact Info) Description 04/01/2018 10:56 AM EDT - 04/02/2018 5:37 PM EDT Hospital Encounter [address] [place] [address] Noemi Hudson MD [facility] [place] [address] Prosthetic hip implant failure, initial encounter; Pain of right lower extremity; 04/01/2018 S/P revision of right total hip (Dr. Hudson) Discharge Disposition: Home with VNA Social History Tobacco Use Types Packs/Day Years [...] Sign Reading Time Taken Comments Blood Pressure 146/61 04/02/2018 4:00 PM EDT Pulse 72 04/01/2018 6:40 PM EDT Temperature 37.5 ??C (99.5 ??F) 04/02/2018 3:41 PM ED T Respiratory Rate 17 04/02/2018 3:41 PM EDT Oxygen Saturation 95% 04/02/2018 4:00 PM EDT Inhaled Oxygen Concentration - - Weight 80.1 kg (176 lb 9.4 oz) 04/01/2018 12:04 PM EDT Height 157 cm (5' 1.81) 04/01/2018 12:04 PM EDT Body Mass Index 32.5 04/01/2018 12:04 PM EDT documented in this encounter Discharge Summaries * Lindsey Rice P, HOUSE MOVER - 04/01/2018 9:42 AM EDT Discharge Summary Patient Name: Alyssa Burnham Patient Age: 72 y.o. Language: South African Race: White Ethnicity: Not nor Admit date: 04/01/2018 Discharge date and time: 04/02/2018 Attending Physician: Noemi Hudson MD Discharge Physician: Noemi Hudson MD Follow-up Recommendations for Providers: See discharge instructions for additional details. Future Appointments Date Time Provider Department Center 04/30/2018 3:[address] [facility] 04/30/2018 4:00 PM Noemi Hudson MD [facility] Inpatient Provider Contact Information: Noemi Hudson MD Orthopedics: [phone] After hours and weekends, call [facility] Inspector Watch Assembly, , and have the Orthopedic resident paged. Discharge Diagnoses (Hospital Problems) and Secondary Diagnoses (Chronic Problems): Active Hospital Problems Diagnosis ??? 04/01/2018 S/P revision of right total hip (Dr. Hudson) ??? Prosthetic hip implant failure Resolved Hospital Problems Diagnosis Date Resolved No resolved problems to display. Active Non-Hospital Problems Diagnosis ??? Status post right hip replacement, Dr. Morales 2008 ??? 02/04/2014 Dr. Holland Left Anterior AMBER ??? CIS - Entered not Verified ??? CIS - Arthritis ??? CIS - GERD ??? CIS - HTN ??? CIS - hyperlipidemia ??? CIS - reactive airway disease Operations/Major Procedures: 04/01/2018 Surgeon(s) and Role: * Noemi Hudson MD - Primary * Sarah Mascorro MD - Resident-Surgeon Jad Procedure(s): RIGHT TOTAL HIP REVISION ARTHROPLASTY, COMPLETE MODIFIER PINNACLE ACETABULUM DEPUY MODIFIER S-ROM FEMORAL STEM DEPUY History of Presentation: Alyssa Burnham is a 72 y.o. female who has been followed in the out- patient clinic witha history right total hip replacement and eccentric location of her femoral head in the cup suspicious for disassociation of the liner. Given her radiographic findings, clinical findings of pain and squeaking, she was an appropriate candidate for revision AMBER. A detailed conversation regarding the r isks and benefits of hip revision surgery was had with the patient. The risks discussed included but were not limited to: bleeding (which may or may not require transfusion), infection, damage to nerves or blood vessels, deep venous thrombosis, pulmonary embolus, prosthetic failure, loosening, prosthetic fracture, femur or pelvic fracture, dislocation, leg-length inequality, persistent pain, needfor future surgery, medical complications (including cardiac, respiratory and neurologic complications), anaesthetic complications, and . Subsequent to this conversation, all of the patient???s questions were answered in great detail and informed consent was obtained for a right total hip arthroplasty revision. She received preoperative medical clearance and was felt optimized for surgery. Today, she identified the right hip as the correct operative side. Hospital Course: The patient was admitted via Same Day Surgery for the above operation. DVT prophylaxis was: Entericcoated Aspirin 81 mg po bid X 30 days. Patient began rehab on POD#1 for weight bearing as toleratedof right leg and reinforcement of the enhanced AMBER Precautions. Levine was removed on POD#1 and patient was voiding spontaneously without difficulty. The right hip silver Mepilex dressing to remain inplace 7 days, was inspected on POD#1 and was dry and intact. Pain was well controlled with oral pain medications. Patient did not have a bowel movement prior to discharge but was passing flatus and was taking a diet without difficulty. By POD#1 the patient was medically stable and was cleared for safe discharge to home per PT. Vital Signs at Discharge: Weight: Wt Readings from Last 1 Encounters: //18 80.1 kg (176 lb 9.4 oz) Height: Ht Readings from Last 1 Encounters: 04/01/18 157 cm (5' 1.81) HC: HC Readings from Last 1 Encounters: No data found for HC BMI: Body mass index is 32.5 kg/(m^2). Last value Range last 24 hrs Temperature Temp: 37.5 ??C (99.5 ??F) Temp: [36.9 ??C (98.4 ??F)-37.6 ??C (99.7 ??F)] Heart Rate Heart Rate: 72 Heart Rate: [64-72] Blood Pressure BP: 146/61 BP: (101-146)/(55-95) Respiratory Rate Resp: 17 Resp: [9-17] SpO2 SpO2: 95 % SpO2: [92 %-97 %] Art BP BP (Arterial Line): -- Functional and Cognitive Status: Patient mobilizing with a walker, cognitively intact at baseline mental status at time of discharge. Important Lab Data: Last 3 wbc, hgb, hct plt Recent Labs 04/02/18 0313 03/28/18 1308 WBC 8.6 6.4 HGB 11.9 13.0 HCT 35.6* 39.5 PLATELET 203 213 Last 3 Lytes Recent Labs 04/02/18 0313 03/28/18 1308 NA 141 141 K 4.2 4.0 CL 105 103 CO2 21* 22 BUN 15 17 CREATININE 0.90 0.83 Studies: Xray Pelvis (generic) Result Date: 04/01/2018 EXAMINATION: XR PELVIS (GENERIC) CLINICAL HISTORY: s/p right AMBER revision TECHNIQUE: Portable AP supine radiograph of the pelvis from 04/01/2018 at 1645 hours. COMPARISON: 03/28/2018. FINDINGS: Revision right hip arthroplasty hardware appears well-seated. No immediate postoperative complication such as periprosthetic fracture seen. Unchanged appearance of the bony pelvic ring and the post arthroplasty appearance of the left hip. No immediate right hip revision arthroplasty complication identified. Pending Studies and Lab Data at Discharge: None Transfusions: No Discharge Conditions/Prognosis: Stable, awake, and alert. Mobilizing as noted above, pain controlled on oral medications. Discharge to: Home with VNA. Updated Allergies/ADRs: Allergies Allergen Reactions ??? Latex Rash ??? [...] the pain ??? Sulfa (Sulfonamide Antibiotics) headache Immunizations Given this Hospitalization: Immunization History Administered Date(s) Administered ??? Influenza Vaccine, Whole 04/15/2008 ??? Pneumococcal Polyvalent 23 08/16/2008 Discharge Medications: Your Medications Notice Some of the medications listed here do not show instructions, such as how often to take the medication. Ask your doctor or nurse how to use these medications. Specifically ask about this and similar medications: fluticasone (FLOVENT HFA) 220 mcg/Actuation inhaler New Medications Dose Details acetaminophen 500 mg Tab Commonly known as: TYLENOL Take 2 tablets by mouth every 8 hours. Continue the Tylenol around the clock for 10 days after surgery, (04/11/2018). Then may take if needed per package insert. Do not take more than 3,000 mg of Tylenol in 24 hours. 1000 mg Refills: 0 aspirin 81 mg Tbec Take 1 tablet by mouth 2 times daily. Take with food for 30 days after surgery. Last day = 05/01/2018. 81 mg Refills: 0 gabapentin 300 mg Cap Commonly known as: NEURONTIN Take 1 capsule by mouth nightly. Take nightly before bed for sleep for 4 weeks after surgery. 300 mg Quantity: 30 capsule Refills: 0 HYDROmorphone 2 mg Tab Commonly known as: DILAUDID Take 1-3 tablets by mouth every 4 hours as needed for Pain. 2-6 mg Quantity: 60 tablet Refills: 0 naproxen 500 mg Tab Commonly known as: NAPROSYN Take 1 tablet by mouth 2 times daily as needed. Take with food for up to 6 weeks after surgery. 500 mg Quantity: 84 tablet Refills: 0 Continued medications, unchanged Dose Details acyclovir 800 mg Tab Commonly known as: ZOVIRAX Take 800 mg by mouth as needed. Cold sores 800 mg Refills: 0 albuterol 90 mcg/actuation Hfaa Inhale 2 puffs into the lungs every 4 hours as needed. Use with spacer 2 puff Refills: 0 atorvastatin 40 mg Tab Commonly known as: LIPITOR Take 40 mg by mouth daily. 40 mg Refills: 0 cephalexin 500 mg Cap Commonly known as: KEFLEX Take 2,000 mg by mouth as needed. Takes 1 hour prior to dental work. 2000 mg Refills: 0 cholecalciferol (Vitamin D3) 1,000 unit Tab Take 1,000 Units by mouth daily. 1000 Units Refills: 0 clobetasol 0.05 % Crea Commonly known as: TEMOVATE Apply 1 Application topically as needed. 1 Application Refills: 0 cyanocobalamin 1,000 mcg Tab Take 1,000 mcg by mouth daily. 1000 mcg Refills: 0 FLOVENT HFA 220 mcg/actuation Hfaa ?nk?wn!?? Generic drug: fluticasone Refills: 0 omeprazole 20 mg Cpdr Commonly known as: PriLOSEC Take 20 mg by mouth daily. 20 mg Refills: 0 polyethylene glycol 17 gram Pwpk Commonly known as: MIRALAX Take 17 g by mouth daily as needed. 17 g Refills: 0 senna-docusate 8.6-50 mg Tab Commonly known as: PERICOLACE Take 1-4 tablets by mouth 2 times daily. 1-4 tablet Quantity: 60 tablet Refills: 2 SERTRALINE ORAL Take 50 mg by mouth daily. 50 mg Refills: 0 Smoking Status at Discharge: History Smoking Status ??? Former Smoker ??? Packs/day: 0.00 ??? Years: 0.50 ??? Types: Cigarettes Smokeless Tobacco ??? Never Used Comment: in college Instructions Given to Patient at Discharge: Patient Instructions Activity: 1. Your weight-bearing status is - weight bearing as tolerated of right leg. 2. Remember to use a walker or crutches as needed for balance and protection. Your physical therapist may progress you to using a cane when appropriate. 3. Remember your hip precautions: Enhanced: DO NOT flex the operative leg more than 90 degrees. DO NOT cross your legs. USE a raised seating / toilet seat. Use a pillow or the Abduction pillow between your legs to remind you not to cross your legs. Anticoagulation: Aspirin - You are being discharged on enteric-coated Aspirin 81 mg by mouth twice a day for 30 days. After your dose on 05/01/18 stop the Aspirin, unless you are told otherwise by your Orthopedic surgeon. Take this medication with food or large amounts (240 mL) of water or milk to minimize GI irritation. Diet: Resume your usual diet but increase your intake of fluids and fiber while you are on narcoticpain meds to prevent constipation. Driving: None until you are cleared to do so by your Orthopedic surgeon. You should not drive whileyou are on narcotic pain meds as they can affect your judgment and reaction time. Call your surgeonwith any questions/concerns. Medications: 1. The pain medication you are on can cause constipation so increase your intake of fluids and fiber while you are on them. The stool softener, Pericolace, that has been prescribed can also be taken to facilitate a bowel movement. You can also take an tbmf-fta-anbrsxt medication, Miralax if needed to combat constipation. 2. If you need a renewal on your narcotic pain medication, you need to give the Orthopedic clinic enough time to process your request. This can take up to three days, so plan accordingly. 3. Continue acetaminophen (Tylenol) 1,000mg every 8 hours around the clock until 04/11/18 (for ten days after your surgery). This can be effective in controlling pain along with your other medications. After that you can take Tylenol as needed per package insert. Do not take more than 3,000mg of acetaminophen in a 24 hour period. 4. You have been discharged on a short acting narcotic, dilauded. You will be on this medication for a limited period of time only. Take the smallest dose possible to control your pain. As your pain improves take smaller, less frequent doses. You may break the tablet to achieve a smaller dose. 5. You are being discharged on prescription strength naproxen (Aleve). This medication is a type ofnonsteroidal anti-inflammatory (NSAID). This will help with your pain and inflammation. Take this twice a day IF NEEDED, for the next 6 weeks. Y 6. Please continue to take your omeprazole 20 mg daily for at least the next 6 weeks while you are taking NSAIDs-naproxen. This will decrease stomach irritation that may be caused by NSAIDs. Take this daily for the next 6 weeks while you are on the naproxen. 7. You are being discharged on gabapentin (Neurontin), a non-narcotic medication that will help with your pain at night and allow you to sleep better. Take this at night for the next 4 weeks. Shower (internal sutures): 1. You can shower but remember your activity limitations and always have a chair available for balance and protection. DO NOT submerge the dressing/incision. 2. (Mepilex) Do not let water run over the operative dressing. If it becomes wet lightly pat the dressing dry. DO NOT submerge the incision. When this operative dressing is removed you can let water gently run over the incision. Wound (Mepilex): 1. You do NOT have any external westley or sutures in place. Your sutures are internal and will be absorbed over time. 2. You have a Mepilex dressing in place. Do not lift the edge of the Mepilex dressing to inspect the incision, it will not re-adhere. Remove your operative dressing 7 days after your surgery (04/08/18). When it is removed you can leave the incision open to air or cover it with a light dressing. 3. If you have lots of drainage when you get home (and it is before 04/08/18), remove the operative dressing and replace it with dry sterile gauze. Continue with daily dressing changes (and as needed)until the drainage stops, then remove the dressing and leave the incision open to air or lightly covered. Misc: Remember that ICE and elevation are very important after surgery to help decrease swelling and control pain. Use ICE for 20-30 minutes at a time and keep your leg elevated as much as possible. Call your doctor ([phone]) if you develop: 1. Fever greater than 100.5 2. Severe nausea or vomiting 3. Increasing pain that is not controlled by pain medications 4. Increasing redness, swelling, or drainage from incisions 5. Change in sensation FOLLOW-UP APPOINTMENTS: 1. You will have follow-up appointments at [facility] as indicated below in Future Appointment and Orders. 2. You will need to have x-rays prior to your follow-up appointment on 04/30/2018. Please come to Radiology, desk 3T, 1 hour BEFORE that appointment for these x-rays. Future Appointments Date Time Provider Department Center 04/30/2018 3:[address] [facility] DX ROOM 6 [facility] 04/30/2018 4:00 PM Noemi Hudson MD [facility] [address] [place] [address] If you have questions or concerns: Sunday through Sunday, 8 AM - 5 PM, please call Noemi Tristan MD's office at . If it is after 5 PM, the weekend, or holidays, please call and ask to speak with theOrthopedic resident on-call. General Instructions None Future Appointments and Orders Future Appointments Provider Department Dept Phone 04/30/2018 3:[address] [facility] DX ROOM 6 XRay at [place] [phone] Please go to Strategic Intelligence Officer Area 3T ([place] Location). 04/30/2018 4:00 PM Noemi Hudson MD Orthopaedics at [place] [phone] Future Orders Complete By Expires Referral to Home Health - at DISCHARGE [[id number] CPT(R)] As directed Process Instructions: Scheduling Instructions: Comments: DOCUMENTATION FOR VNA SERVICES (INCLUDING THOSE PATIENTS WITH MEDICARE COVERAGE REQUIRING HOME VNA SERVICES AND/OR HOSPICE SERVICES) Alyssa Burnham Discharge to own [place] [id number] [facility] [place] [address] Mobile Not on file. Freedom Of Information Officer's Name: herself with neighbors' assist In discussion with the attending physician, it is certified that this patient is under their care and that they, or a nurse practitioner, clinical nurse specialist or physician's patient care nursing assistant who is working directly with them, had a face to face encounter that meets the physician face to face encounter requirements with this patient on 04/02/2018 The encounter with the patient was in whole, or in part, for the following medical condition, whichis the primary reason for home health care services: Revision R AMBER In discussion with the provider, it is certified that, based on their findings, the following services are medically necessary for home health services. To provide the following care/treatments with the clinical findings supporting the need for services as follows: Home Health Agency: [facility] [employer] PHONE: [phone] FAX: [phone] Home care orders for Revision Total Hip Replacements: (needing PT & OT) Pt will be on ASA; therefore there are no blood draws. SQ sutures; therefore there is NO REMOVAL of sutures Do not lift the edge of the mepilex dressing to observe the incision; this dressing needs to stay in place until 7 days after surgery. Assess wound/incision, pain management, medication effectiveness and management, elimination, nutrition PT: Continue PT rehab for balance, endurance, joint mobility, ROM, Strength, Total Hip Arthroplastyexercise and restriction protocol If PT services only then please refer for Correction(SN) eval if indicated on admission visit Hip precautions: Enhanced: DO NOT flex the operative leg more than 90 degrees. DO NOT cross your legs. USE a raised seating / toilet seat. Use a pillow or the Abduction pillow between your legs to remind you not to cross your legs. OT for ADL's FOR MEDICARE ONLY: (please delete this section if not Medicare) In discussion with the attending physician, it is certified that the clinical findings support thatthis patient is homebound ;i.e. absences from home require considerable and taxing effort due to: decreased strength and endurance R LE requiring use of assistive device and homebound status All VNA agencies which cover the area of patient's residence have been reviewed, either verbally lexi writing, and patient/family have chosen the home health care agency as noted for home services. Questions: Agency name and contact information: [facility] Patient location post discharge: home What services are requested: Physical Therapy Occupational Therapy Start date: 04/03/2018 Responsible MD post discharge contact info: Primary Care Provider: Baylee Elena, HOUSE MOVER [phone] Discharge References/Attachments None documented in this encounter Discharge Instructions * Patient Instructions* Lindsey Rice, HOUSE MOVER - 04/01/2018 9:46 AM EDT Activity: 1. Your weight-bearing status is - weight bearing as tolerated of right leg. 2. Remember to use a walker or crutches as needed for balance and protection. Your physical therapist may progress you to using a cane when appropriate. 3. Remember your hip precautions: Enhanced: DO NOT flex the operative leg more than 90 degrees. DO NOT cross your legs. USE a raised seating / toilet seat. Use a pillow or the Abduction pillow between your legs to remind you not to cross your legs. Anticoagulation: Aspirin - You are being discharged on enteric-coated Aspirin 81 mg by mouth twice a day for 30 days. After your dose on 05/01/18 stop the Aspirin, unless you are told otherwise by your Orthopedic surgeon. Take this medication with food or large amounts (240 mL) of water or milk to minimize GI irritation. Diet: Resume your usual diet but increase your intake of fluids and fiber while you are on narcoticpain meds to prevent constipation. Driving: None until you are cleared to do so by your Orthopedic surgeon. You should not drive whileyou are on narcotic pain meds as they can affect your judgment and reaction time. Call your surgeonwith any questions/concerns. Medications: 1. The pain medication you are on can cause constipation so increase your intake of fluids and fiber while you are on them. The stool softener, Pericolace, that has been prescribed can also be taken to facilitate a bowel movement. You can also take an ivqb-anu-ltvcvtl medication, Miralax if needed to combat constipation. 2. If you need a renewal on your narcotic pain medication, you need to give the Orthopedic clinic enough time to process your request. This can take up to three days, so plan accordingly. 3. Continue acetaminophen (Tylenol) 1,000mg every 8 hours around the clock until 04/11/18 (for ten days after your surgery). This can be effective in controlling pain along with your other medications. After that you can take Tylenol as needed per package insert. Do not take more than 3,000mg of acetaminophen in a 24 hour period. 4. You have been discharged on a short acting narcotic, dilauded. You will be on this medication for a limited period of time only. Take the smallest dose possible to control your pain. As your pain improves take smaller, less frequent doses. You may break the tablet to achieve a smaller dose. 5. You are being discharged on prescription strength naproxen (Aleve). This medication is a type ofnonsteroidal anti-inflammatory (NSAID). This will help with your pain and inflammation. Take this twice a day IF NEEDED, for the next 6 weeks. Y 6. Please continue to take your omeprazole 20 mg daily for at least the next 6 weeks while you are taking NSAIDs-naproxen. This will decrease stomach irritation that may be caused by NSAIDs. Take this daily for the next 6 weeks while you are on the naproxen. 7. You are being discharged on gabapentin (Neurontin), a non-narcotic medication that will help with your pain at night and allow you to sleep better. Take this at night for the next 4 weeks. Shower (internal sutures): 1. You can shower but remember your activity limitations and always have a chair available for balance and protection. DO NOT submerge the dressing/incision. 2. (Mepilex) Do not let water run over the operative dressing. If it becomes wet lightly pat the dressing dry. DO NOT submerge the incision. When this operative dressing is removed you can let water gently run over the incision. Wound (Mepilex): 1. You do NOT have any external westley or sutures in place. Your sutures are internal and will be absorbed over time. 2. You have a Mepilex dressing in place. Do not lift the edge of the Mepilex dressing to inspect the incision, it will not re-adhere. Remove your operative dressing 7 days after your surgery (04/08/18). When it is removed you can leave the incision open to air or cover it with a light dressing. 3. If you have lots of drainage when you get home (and it is before 04/08/18), remove the operative dressing and replace it with dry sterile gauze. Continue with daily dressing changes (and as needed)until the drainage stops, then remove the dressing and leave the incision open to air or lightly covered. Misc: Remember that ICE and elevation are very important after surgery to help decrease swelling and control pain. Use ICE for 20-30 minutes at a time and keep your leg elevated as much as possible. Call your doctor ([phone]) if you develop: 1. Fever greater than 100.5 2. Severe nausea or vomiting 3. Increasing pain that is not controlled by pain medications 4. Increasing redness, swelling, or drainage from incisions 5. Change in sensation FOLLOW-UP APPOINTMENTS: 1. You will have follow-up appointments at [facility] as indicated below in Future Appointment and Orders. 2. You will need to have x-rays prior to your follow-up appointment on 04/30/2018. Please come to Radiology, desk 3T, 1 hour BEFORE that appointment for these x-rays. Future Appointments Date Time Provider Department Center 04/30/2018 3:[address] [facility] DX ROOM 6 Xray [facility] 04/30/2018 4:00 PM Noemi Hudson MD [facility] [place] [facility] If you have questions or concerns: Sunday through Sunday, 8 AM - 5 PM, please call Noemi Tristan MD's office at . If it is after 5 PM, the weekend, or holidays, please call and [facility]. documented in this encounter Medications at Time of Discharge [...] fluticasone (FLOVENT HFA) 220 mcg/Actuation inhaler 09/02/2010 acetaminophen (TYLENOL) 500 mg Tablet Take 2 tablets by mouth every 8 hours. Continue the Tylenol around the clock for 10 days after surgery, (04/11/2018). Then may take if needed per package insert. Do not take more than 3,000 mg of Tylenol in 24 hours. 04/02/2018 atorvastatin (LIPITOR) 40 mg Tablet Take 40 mg by mouth daily. polyethylene glycol (MIRALAX) 17 gram packet Take 17 g by mouth daily as needed. 0 02/06/2014 07/03/2018 senna-docusate (PERICOLACE) 8.6-50 mg per tablet Take 1-4 tablets by mouth 2 times daily. 60 tablet 2 02/06/2014 07/03/2018 cyanocobalamin 1,000 mcg tablet Take 1,000 mcg by mouth daily. 07/03/2018 HYDROmorphone (DILAUDID) 2 mg Tablet Take 1-3 tablets by mouth every 4 hours as needed for Pain. 60 tablet 04/02/2018 07/03/2018 aspirin 81 mg Tablet, Delayed Release (E.C.) Take 1 tablet by mouth 2 times daily. Take with food for 30 days after surgery. Last day = 05/01/2018. 04/02/2018 07/03/2018 gabapentin (NEURONTIN) 300 mg Capsule Take 1 capsule by mouth nightly. Take nightly before bed for sleep for 4 weeks after surgery. 30 capsule 04/02/2018 07/03/2018 naproxen (NAPROSYN) 500 mg Tablet Take 1 tablet by mouth 2 times daily as needed. Take with food for up to 6 weeks after surgery. 84 tablet 04/02/2018 07/03/2018 cholecalciferol, Vitamin D3, 1,000 unit Tablet Take 1,000 Units by mouth daily. 07/03/2018 documented as of this encounter Progress Notes * Hima Reinoso RN - 04/02/2018 4:40 PM EDT Patient discharged to home with [facility] services. IV removed, site benign. My assessment remains unchanged from my previous assessment. Patient Denies CP and SOB. Discussed pain management with patient, pain tolerable. Patient medicated prior to discharge. Patient has all belongings. Patient received discharge summary and prescriptions. These were reviewed. All questions answered. Patient encouraged to call with questions or concerns. Patient discharged to home with family. Discharge Summary was faxed, RN called report to [facility]. Hima Reinoso RN * Sarah Mascorro MD - 04/02/2018 5:48 AM EDT ORTHOPAEDIC SURGERY INPATIENT PROGRESS NOTE Patient Name: Alyssa Burnham Age: 72 y.o. Surgery/Issue: Right Total Hip Arthroplasty Revision Attending: Dr. Hudson Date of surgery: 04/01/2018 SUBJECTIVE / INTERVAL HISTORY: Doing very well this AM Denies any pain Has remained in bed all night; levine in with abduction pillow Excited and nervous about walking this AM Denies any numbness or tingling; denies any motor weakness FOCUSED REVIEW OF SYSTEMS: as above. Active Hospital Problems Diagnosis ??? Prosthetic hip implant failure Resolved Hospital Problems Diagnosis Date Resolved No resolved problems to display. Active Non-Hospital Problems Diagnosis ??? Status post right hip replacement, Dr. Morales 2008 ??? 02/04/2014 Dr. Holland Left Anterior AMBER ??? CIS - Entered not Verified ??? CIS - Arthritis ??? CIS - GERD ??? CIS - HTN ??? CIS - hyperlipidemia ??? CIS - reactive airway disease MEDICATIONS: ??? sodium chloride 0.9 % flush 5 mL ??? sodium chloride 0.9 % flush 5-20 mL ??? lidocaine (XYLOCAINE) 10 mg/mL (1 %) injection 3 mg ??? polyethylene glycol (MIRALAX) packet 17 g ??? senna-docusate (PERICOLACE) 8.6-50 mg per tablet 2 tablet ??? lactulose (CHRONULAC) 20 gram/30 mL oral solution 20-40 g ??? bisacodyl (DULCOLAX) EC tablet 10 mg ??? bisacodyl (DULCOLAX) suppository 10 mg ??? acetaminophen (TYLENOL) tablet 1,000 mg ??? gabapentin (NEURONTIN) capsule 600 mg FOLLOWED BY [START ON 04/03/2018] gabapentin (NEURONTIN) capsule 300 mg ??? ketorolac (TORADOL) injection 15 mg ??? celecoxib (CeleBREX) capsule 200 mg ??? dexamethasone (DECADRON) tablet 4 mg ??? sodium chloride 0.9% infusion ??? ceFAZolin (ANCEF) 1g in dextrose 5% 50mL ??? HYDROmorphone (DILAUDID) tablet 2-6 mg ??? ondansetron (ZOFRAN) tablet 4 mg OR ondansetron (ZOFRAN) injection 4 mg ??? aspirin EC tablet 81 mg ??? povidone-iodine 5 % ophthalmic solution ??? atorvastatin (LIPITOR) tablet 40 mg ??? pantoprazole (PROTONIX) tablet 40 mg ??? sertraline (ZOLOFT) tablet 50 mg ??? albuterol (PROVENTIL) nebulizer solution 2.5 mg ??? sodium chloride 0.9% 50 mL/hr (04/01/18 1634) OBJECTIVE: Temp: [36.4 ??C (97.5 ??F)-37.3 ??C (99.1 ??F)] Heart Rate: [64-72] Resp: [9-16] BP: (101-152)/(55-72) Intake/Output Summary (Last 24 hours) at 04/02/18 0548 Last data filed at 04/02/18 0345 Gross per 24 hour Intake 1250 ml Output 975 ml Net 275 ml Body mass index is 32.5 kg/(m^2). PE: General: NAD, awake/alert CV: RRR assessed peripherally Resp: Breathing comfortably on RA RLE: Dressing c/d/i. Motor intact to EHL, FHL, TA. Sensation intact in foot/calf/thigh. Brisk capillary refill distally. Abduction pillow between legs Lab Results Component Value Date NA 141 04/02/2018 K 4.2 04/02/2018 CL 105 04/02/2018 CO2 21 (L) 04/02/2018 BUN 15 04/02/2018 CREATININE 0.90 04/02/2018 GLUCOSE 157 04/02/2018 CALCIUM 8.8 04/02/2018 Lab Results Component Value Date WBC 8.6 04/02/2018 HGB 11.9 04/02/2018 HCT 35.6 (L) 04/02/2018 MCV 86.8 04/02/2018 PLATELET 203 04/02/2018 Lab Results Component Value Date INR 1.0 03/28/2018 Imaging: AP Pelvis The right hip is reduced. There is no evidence of intra-op fracture. ASSESSMENT / PLAN: Alyssa Burnham is a 72 y.o. female 1 Day Post-Op s/p right AMBER, progressing well with stable vitals. Plan to work with PT/OT today to see home readiness PMH: HTN, GERD, HLD Activity: WBAT RLE, enhanced precautions Closure: Resorbable sutures Dressing: mepi X 7 Drain: none Anticoagulation: ASA 81mg BID for 30 days Antibiotics: periop ancef Consults: PT/OT Dispo:1-2 days Follow-up: scheduled 04/30 Dr. Tristan Mascorro MD Future Appointments Date Time Provider Department Center 04/30/2018 3:[address] [facility] DX ROOM 6 [facility]ray [facility] 04/30/2018 4:00 PM Noemi Hudson MD [facility] [place] [facility] Associated attestation - Noemi Hudson MD - 04/02/2018 8:26 AM EDT I independently evaluated and saw the patient, and I agree with the above note. Noemi Hudson MD * Cristhian Martel RN - 04/01/2018 6:47 PM EDT Patient [facility] from PACU s/p R hip revision. Patient AOx 4, HR 62, lung sounds course bilaterally, lbm 03/31, levine draining urine. +csmt to all extremities. Dressing clean dry and intact. Pain 3/10 at this time, pain regimine controlling pain. Patient oriented to room, callbell to bedside, please see flowsheet for full assessment. Will continue to monitor Cristhian Martel RN * Nancy Persaud RN - 04/01/2018 6:07 PM EDT Report to Art on 3w. Pt sleeping off and on. Kavita po sips. States she is comfortable. * Romina Lopez MD - 04/01/2018 5:49 PM EDT ORTHOPAEDIC SURGERY INPATIENT PROGRESS NOTE Patient Name: Alyssa Burnham Age: 72 y.o. Surgery/Issue: Right Total Hip Arthroplasty Revision Attending: Dr. Hudson Date of surgery: 04/01/2018 SUBJECTIVE / INTERVAL HISTORY: Denies CP, SOB, nausea, vomiting, numbness/weakness. Pain well controlled. Only complaint is a mildcough; gave patient IS in room. FOCUSED REVIEW OF SYSTEMS: as above. Active Hospital Problems Diagnosis ??? Prosthetic hip implant failure Resolved Hospital Problems Diagnosis Date Resolved No resolved problems to display. Active Non-Hospital Problems Diagnosis ??? Status post right hip replacement, Dr. Morales 2008 ??? 02/04/2014 Dr. Holland Left Anterior AMBER ??? CIS - Entered not Verified ??? CIS - Arthritis ??? CIS - GERD ??? CIS - HTN ??? CIS - hyperlipidemia ??? CIS - reactive airway disease MEDICATIONS: ??? acetaminophen (TYLENOL) tablet 1,000 mg ??? ketorolac (TORADOL) injection 15 mg ??? sodium chloride 0.9% infusion ??? ceFAZolin (ANCEF) 1g in dextrose 5% 50mL ??? HYDROmorphone (DILAUDID) tablet 2-6 mg ??? tranexamic acid (CYKLOKAPRON) 1,202 mg in sodium chloride 0.9% 112.02 mL ??? povidone-iodine 5 % ophthalmic solution ??? ondansetron (ZOFRAN) injection 4 mg ??? HYDROmorphone (DILAUDID) injection 0.2-0.4 mg ??? sodium chloride 0.9% 50 mL/hr (04/01/18 1634) OBJECTIVE: Temp: [36.4 ??C (97.5 ??F)-37.3 ??C (99.1 ??F)] Heart Rate: [66-69] Resp: [12-16] BP: (129-152)/(63-72) Intake/Output Summary (Last 24 hours) at 04/01/18 1749 Last data filed at 04/01/18 1700 Gross per 24 hour Intake 1000 ml Output 725 ml Net 275 ml Body mass index is 32.5 kg/(m^2). PE: General: NAD, awake/alert CV: RRR assessed peripherally Resp: Breathing comfortably on RA RLE: Dressing c/d/i. Motor intact to EHL, FHL, TA. Sensation intact in foot/calf/thigh. Brisk capillary refill distally. Pillow in between legs. Lab Results Component Value Date NA 141 03/28/2018 K 4.0 03/28/2018 CL 103 03/28/2018 CO2 22 03/28/2018 BUN 17 03/28/2018 CREATININE 0.83 03/28/2018 GLUCOSE 98 03/28/2018 CALCIUM 9.4 03/28/2018 Lab Results Component Value Date WBC 6.4 03/28/2018 HGB 13.0 03/28/2018 HCT 39.5 03/28/2018 MCV 86.1 03/28/2018 PLATELET 213 03/28/2018 Lab Results Component Value Date INR 1.0 03/28/2018 Imaging: AP Pelvis The right hip is reduced. There is no evidence of intra-op fracture. ASSESSMENT / PLAN: Alyssa BlandAmi is a 72 y.o. female Day of Surgery s/p right AMBER, progressing well with stable vitals. PMH: HTN, GERD, HLD Activity: WBAT RLE, enhanced precautions Closure: Resorbable sutures Dressing: mepi X 7 Drain: none Anticoagulation: ASA 81mg BID for 30 days Antibiotics: periop ancef Consults: PT/OT Dispo:1-2 days Follow-up: scheduled 04/30 Dr. Tristan Lopez MD Future Appointments Date Time Provider Department Center 04/30/2018 3:[address] [facility] DX ROOM 6 Xray [facility] 04/30/2018 4:00 PM Noemi Hudson MD [facility] [place] [facility] documented in this encounter H&P Notes * Sarah Mascorro MD - 04/01/2018 11:59 AM EDT PRE-OPERATIVE HISTORY AND PHYSICAL for ADMISSION, OBSERVATION OR PROCEDURE Date of : 1945 Age: 72 y.o. PCP: Baylee Elena APRN Presenting Diagnosis/Chief Complaint: No chief complaint on file. History of Present Illness: Alyssa Burnham is a 72 y.o. female who presents for pre-operative examination. Please see Dr. Hudson's and HUI Dia's note for full details of the patient's specific problem. In Brief, 72F s/p right AMBER by Dr. Morales in 2008 with right hip pain. Images suggest eccentric poly wear. Plan is to perform a right AMBER revision with head and liner exchange. PMHx: Patient Active Problem List Diagnosis Code ??? CIS - Arthritis ??? CIS - Entered not Verified ??? CIS - GERD ??? CIS - HTN ??? CIS - hyperlipidemia ??? CIS - reactive airway disease ??? Status post right hip replacement, Dr. Morales 2008 Z96.641 ??? 02/04/2014 Dr. Holland Left Anterior AMBER M16.12 ??? 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 Asthma [...] ??? JOINT REPLACEMENT bilateral hip ??? PRO TOTAL HIP ARTHROPLASTY 02/04/2014 @TOTAL HIP ARTHROPLASTY, ANTERIOR APPROACH performed by Lance Holland MD at [facility] MAIN OR Home Medications: Facility-Administered Medications Prior to Admission Medication Dose Route Frequency Provider Last Rate Last Dose ??? mupirocin (BACTROBAN) 2 % ointment Topical (Top) BID Noemi Hudson MD Prescriptions Prior to Admission Medication Sig Dispense Refill Last Dose ??? atorvastatin (LIPITOR) 40 mg Tablet Take 40 mg by mouth daily. 03/29/2018 at Unknown time ??? cholecalciferol, Vitamin D3, 1,000 unit Tablet Take 1,000 Units by mouth daily. 03/29/2018 at Unknown time ??? omeprazole (PRILOSEC) 20 mg capsule Take 20 mg by mouth daily. 03/29/2018 at Unknown time ??? cyanocobalamin 1,000 mcg tablet Take 1,000 mcg by mouth daily. 03/29/2018 at Unknown time ??? SERTRALINE HCL (SERTRALINE ORAL) Take 50 mg by mouth daily. 03/29/2018 at Unknown time ??? fluticasone (FLOVENT HFA) 220 mcg/Actuation inhaler 03/29/2018 at Unknown time ??? polyethylene glycol (MIRALAX) 17 gram packet Take 17 g by mouth daily as needed. 0 More than a month at Unknown time ??? senna-docusate (PERICOLACE) 8.6-50 mg per tablet Take 1-4 tablets by mouth 2 times daily. 60 tablet 2 More than a month at Unknown time ??? clobetasol (TEMOVATE) 0.05 % cream Apply 1 Application topically as needed. Unknown at Unknown time ??? acyclovir (ZOVIRAX) 800 mg tablet Take 800 mg by mouth as needed. Cold sores More than a month at Unknown time ??? cephALEXin (KEFLEX) 500 mg capsule Take 2,000 mg by mouth as needed. Takes 1 hour prior to dental work. More than a month at Unknown time ??? albuterol (PROVENTIL HFA;VENTOLIN HFA) 90 mcg/actuation inhaler Inhale 2 puffs into the lungs every 4 hours as needed. Use with spacer More than a month at Unknown time Allergies: Allergies Allergen Reactions ??? Latex Rash ??? [...] the pain ??? Sulfa (Sulfonamide Antibiotics) headache Family History: Non contributory Family History Problem Relation Age of Onset ??? Cancer Paternal Grandmother ??? Anesthesia Reaction Mother Social History: Alcohol: social drinker Tobacco: denies Drug: no history of illicit drug use Review of Systems: complete 10 system ROS performed with pertinent findings below. Pertinent items are noted in HPI. Physical Exam: General: alert, appears stated age and cooperative Pulmonary: equal, clear breath sounds bilaterally and no crepitus Cardiovascular: Regular rate and rhythm Assessment and Plan: 72 y.o. female with the above problem, plan to proceed to OR with Dr. Hudson for RIGHT AMBER revision. Associated attestation - Noemi Hudson MD - 04/01/2018 12:17 PM EDT I have evaluated the patient in pre-op and her H&P with no additional updates. I have marked her surgical site. Noemi Hudson MD documented in this encounter Miscellaneous Notes * Initial Assessments - Ariella Mcelroy, PT - 04/02/2018 2:40 PM EDT Physical Therapy Evaluation Total Hip Arthroplasty Patient Profile: Alyssa Burnham is a 72 y.o. female admitted on 04/01/2018 by Noemi Tristan MD for R AMBER revision using posterolateral approach w/ WBAT and enhanced precs R hip, PMH: Past Medical History: Diagnosis Date ??? Asthma ??? Bowel disease ??? Gastroesophageal reflux ??? Heart valve disease diag long ago ??? Intraoperative complication colonoscopy ??? Irregular heart beat hx PVC ??? Mental health problem ??? Vertigo bad feet knees hips, fell last week PSH: Past Surgical History: Procedure Laterality Date ??? CREATED BY INTERFACE Entered not Verified Procedure Date: 09/02/2010 ??? CREATED BY INTERFACE TOTAL HIP ARTHROPLASTY / RIGHT/PINNACLE BRAYDON./S-ROM FEMORAL Procedure Date: 12/02/2008 ??? JOINT REPLACEMENT bilateral hip ??? PRO REVISE TOTAL HIP REPLACEMENT Right 04/01/2018 @TOTAL HIP REVISION ARTHROPLASTY, COMPLETE (WRVU 30.28) [facility] ??? PRO TOTAL HIP ARTHROPLASTY 02/04/2014 @TOTAL HIP ARTHROPLASTY, ANTERIOR APPROACH performed by Lance Holland MD at [facility] MA[facility] OR Social History: Patient is a and lives alone in [place] w/ 2 separate platform steps to enter. She has 1 dog and 3 cats and very helpful friends and neighbors who she can call on anytime/ Pt has a walk in shower and a commode over the toilet Precautions/Special Considerations: WBAT RLE, using walkerat all times for balance and protection. Patient should not flex the operative leg more than 90 degrees, should not actively abduct the hip, should not externally rotate more than 10 degrees and should not cross legs. Use a pillow or the Abduction pillow between their legs to remind patient not to cross their legs. Post-operative course: uneventful Subjective: Patient states ???I managed alone after my last hip (anterior) but I understand but glad for the review of the precautions that I have now?? Objective: Pt seen for initial PT eval, AMBER protocol exs and precaution teaching, bed mobility, transfer and gait training w/ FWW on level and up/down one platform step w/ FWW WBAT RLE teaching pt the backward technique to ascend one step (giving more protection to avoid FWB RLE). Discussed home management and DC Plan Cognitive Status: A O X 4, very indep and has no concerns re managing at home as she plans to ask friends and neighbors for assist Vitals: stable Most recent Hgb value: 11.9 Pain: Tolerable R hip pain t/o ROM/Strength: dec R hip comparing to L. Following enhanced precs. Understands reason and importanceof using leg enologist to assist abd during supine>sit Skin and soft Tissue: silver mepilex dressing R posterolateral hip CDI Functional Mobility: Supine><sit: out toward R side of flat bed, back in same side, using leg enologist to self assist Sit><stand: w/ FWW w/ cues initially for precs/technique but by end of session indep w/ no cues req. Gait: Ambulated using FWW WBAT RLE x 50 ft w/ swing through technique w/ minimal limp evident. Pt understands importance of 2 sided support at all times Stairs: one platform teaching both forward and backward ascending technique. Pt able to do either safely but backward eliminates strain on RLE Informed Consent: The patient understands and agrees to the PT treatment plan and goals. Education: patient educated on Bed mobility, Transfers, Assistive device/technique, Stairs, Exercise, Positioning, Safety , Precautions/protocol, Equipment use, Car transfers, Gait , Home program, Role of therapy and Discharge planning and verbalizes and demonstrates understanding. Patient status, treatment, and mobility recommendations discussed with nursing staff. Assessment: Pt is POD# 1 R posterior lat AMBER revision presenting w/ tolerable level of pain w/ good understanding and performance of exs and precautions withj safe and correct bed mobility, transfer and gait techniques w/ FWW on level and stairs Equipment needs: Patient has all necessary equipment Plan: DC PT w/ home PT/OT and assist from friends and neighbors Total treatment time: 56 minutes eval Total timed treatment: 36 minutes therex and home management ARIELLA MCELROY, PT Pager: [phone] PT Evaluation Code Rationale: ?? Diagnosis & Pertinent Co-Morbidities, personal factors, and present illness affecting Plan of Care: Patient Active Problem List Diagnosis Code ??? CIS - Arthritis ??? CIS - Entered not Verified ??? CIS - GERD ??? CIS - HTN ??? CIS - hyperlipidemia ??? CIS - reactive airway disease ??? Status post right hip replacement, Dr. Morales 2008 Z96.641 ??? 02/04/2014 Dr. Holland Left Anterior AMBER M16.12 ??? 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 04/01/2018 S/P revision of right total hip (Dr. Hudson) Z96.649 Additional personal factors or co-morbidities that impact plan: ... ?? Total # of Factors: 0 1-2 3+ x ?? Examination of body system impairments, functional limitations and behaviors, and/or participation restrictions. Addressing 1-2 elements Addressing 3 + elements x Addressing 4 + elements ?? Clinical presentation: See assessment above. Stable/Uncomplicated Evolving/Fluctuating Symptoms Unstable/Unpredictable x ?? Clinical decision making of low complexity based on pt's functional performance as outlined in this evaluation. [facility] 6 Clicks/stairs Basic Mobility Inpatient Short Form How much difficulty does the patient currently have... Unable (1) A Lot (2) A Little (3) None (4) 1. Turning over in bed (including adjusting bedclothes, sheets and blankets)? x 2. Sitting down on and standing up from a chair with arms (e.g., wheelchair, bedside commode, etc.)? x 3. Moving from lying on back to sitting on the side of the bed? x How much help from another person does the patient currently need... Total (1) A Lot (2) A Little (3) None (4) 4. Moving to and from a bed to a chair (including a wheelchair)? x 5. Need to walk in hospital room? x 6. Climbing 3-5 steps with a railing? x Raw Score: 24 Standardized Score:64.14 CMS 0-100% Score: 0 CMS Modifier: CH G-Code: Mobility Status Modifier CURRENT CH - 0 percent impaired, limited or restricted PROJECTED CH - 0 percent impaired, limited or restricted DISCHARGE CH - 0 percent impaired, limited or restricted G Code Rationale: This G-Code and these disability modifiers were selected as the primary therapy goal based upon the patient's evaluation including the following functional test(s) am-pac 6 clicks. Current ability measures, co- morbidities and clinical judgement were also used to select the disability modifier. This Patient's current G-Code functional level is 0 % impaired * Care Management - Good Nava RN - 04/02/2018 1:09 PM EDT Chart reviewed and met with pt who is known to me from previous adms. Pt had Revision of R AMBER by Dr Hudson and is ready for d/c home today. Pt has cleared PT and just called a friend to pick herup. Pt lives alone but states she has lots of neighbors to assist her. She will be on ASA, SQ sutures, and need Home PT 2-3x wk. Pt requests [facility] services. She is well -knownto them and states she has gotten wonderful care. Pt has the DME she Needs. * Plan of Care - Reed Kilpatrick, OT - 04/02/2018 12:15 PM EDT Occupational Therapy Evaluation Pertinent History of Current Problem: 04/01/2018 S/P revision of right total hip (Dr. Hudson) Precautions/Restrictions: fall, hip, weight bearing Precautions Comments: WBAT RLE, enhanced precautions, active assist abduction Assessment: Pt has been seen for occupational therapy evaluation, please refer to associated flowsheet data listed below for details. Alyssa Jacques Clay presents with the following performance skill deficits and client factors: pain, enhanced hip precautions/LE ROM, strength, standing balance, and functional activity tolerance. These performance deficits have led to activity limitations and participation restrictions in the following areas of occupation: dressing, bathing, grooming, toileting, mobility, transferring, rest/sleep, home management, roles/routines, leisure, driving, community mobility, and social participation. However, despite the deficits listed above pt demonstrates the ability to perform bed mobility, toileting, LB dressing, sit<>stand and short distance functional mobility w/ FWW. Pt educated on precautions, LB dressing, sit<>stand technique, safety/energy conservation, bathing, and toileting. Anticipate that pt will return home with assistance from friends once medically ready. Do not anticipate further OT needs while hospitalized. Staff Recommendations: Encourage OOB activity and participation in all self care tasks Anticipated Discharge Disposition: home with assist, home with home health Pager: [phone] Reed Kilpatrick OT 04/02/2018 Occupational Therapy Rehabilitation Department 2017 OT Evaluation Code Rationale: ?? Diagnosis & Pertinent Co-Morbidities affecting Plan of Care: see PMHx ?? Occupational Profile & Client History: Brief Expanded Extensive x ?? Assessment of Occupational Performance: 1-3 performance deficits 3-5 performance deficits x 5 + performance deficits ?? Clinical Decision Making: Low Moderate High x Clinical decision making of moderate complexity using standardized patient assessment instrument and measurable assessment of functional outcome. G-Code: Self-Care Status Modifier CURRENT CH - 0 percent impaired, limited or restricted PROJECTED CH - 0 percent impaired, limited or restricted DISCHARGE CH - 0 percent impaired, limited or restricted G Code Rationale: This G-Code and these disability modifiers were selected as the primary therapy goal based upon the patient's evaluation including the following functional test(s) AM-PAC - ActivityMeasure for Post-Acute Care. Current ability measures, co-morbidities and clinical judgement were also used to select the disability modifier. This Patient's current G-Code functional level is 0.00% impaired based upon functional assessment within the hospital setting and clinical judgment. 04/02/18 1215 Rehab Evaluation Document Type evaluation Total Evaluation Minutes, Occupational Therapy 55 (eval + sc) Patient Effort excellent Symptoms Noted During/After Treatment none General Information Patient Profile Review yes Patient/Family/Caregiver Comments/Observations I have people who will be over whenever I call. General Observations of Patient Pt supine in bed, hopeful to return home today Pertinent History of Current Problem 04/01/2018 S/P revision of right total hip (Dr. Hudson) Hearing Precautions/Limitations WFL Precautions/Restrictions fall;hip;weight bearing Precautions Comments WBAT RLE, enhanced precautions, active assist abduction Treatment Number OT 1 Living Environment Patient population Adult Living Environment Living Environment Comment Pt lives alone in [place], [place]. There are 2 ASHLEY into 1 level where pt plans to sleep in a flat bed, has a raised toilet, walk-in shower w/ a ASHLEY, grab bars, and a shower bench. Functional Level Prior Prior Functional Level Comment Pt independent [employer]RE OFF[employer]. Self-Care Dominant Hand right Vision Assessment/Intervention Additional Documentation (WFL w/ glasses) Cognitive Assessment/Intervention Additional Documentation Cognitive Assessment Interventions (Group) Cognitive Assessment Interventions Behavior/Mood Observations (Cognitive) alert;cooperative Orientation Status (Cognitive) oriented x 4 Attention (Cognitive) WNL/WFL Follows Commands/Answers Questions (Cognitive) 100% of the time Pain Scale/Rating Pain Assessment Scale Word (verbal rating pain scale) Pain Level (tolerable) Pain Assessment Numbers/Faces/Word Pain Body Location - Side Right Pain Body Location hip ROM (Range of Motion) Additional Documentation (BUE WFL for ADL) Mobility Assessment/Training Additional Documentation Bed Mobility Assessment/Treatment (Group);Gait Assessment/Treatment (Group);Weight-Bearing Status (Group);Transfer Assessment/Treatment (Group) Bed Mobility Assessment/Treatment Assistive Device (Bed Mobility) leg enologist Criwzc-se-Cxc [place] (Bed Mobility) supervision required;verbal cues required;nonverbal cues required (demo/gesture) Impairments (Bed Mobility) pain;ROM (range of motion) decreased;strength decreased;balance impaired Comment (Bed Mobility) Pt performed bed mobility w/ increased time and verbal cues for technique. flat bed Transfer Assessment/Treatment Bed-Chair [place] (Transfers) supervision required;verbal cues required Chair-Bed [place] (Transfers) supervision required;verbal cues required Jrv-Ezlun-Kpp Assistive Device (Transfers) rolling walker [place] (Sit-Stand Transfers) supervision required;verbal cues required [place] (Stand-Sit Transfers) supervision required;verbal cues required Czn-Rlbjg-Xec Assistive Device (Transfers) rolling walker [place] (Toilet Transfers) supervision required;verbal cues required Assistive Device (Toilet Transfers) bedside commode;rolling walker Maintain Weight Bearing Status (Transfers) able to maintain weight bearing status Impairments (Transfers) pain;ROM (range of motion) decreased;strength decreased;balance impaired Comment (Transfers) Pt performed sit<>stand w/ no overt LOB. Pt requried verbal cues to kick RLE out prior to sit<>stand initially, pt performing indepdently by end of session. Gait Assessment/Treatment [place] (Gait) supervision required Assistive Device (Gait) rolling walker Distance in Feet (Gait) 10' Impairments (Gait) balance impaired;pain;ROM (range of motion) decreased;strength decreased Comment (Gait) Pt performed functional mobility in room w/ no overt LOB. AM-PAC Daily Activity AM-PAC Activity Completed? Yes How much help from another person does the patient currently need putting on and taking off regularlower body clothing? 4 - None How much help from another person does the patient currently need with bathing (including washing, rinsing, drying)? 4 - None How much help from another person does the patient currently need with toileting, which includes using toilet, bedpan or urinal? 4 - None How much help from another person does the patient currently need putting on and taking off regularupper body clothing? 4 - None How much help from another person does the patient currently need taking care of personal grooming such as brushing teeth? 4 - None How much help from another person does the patient currently need eathing meals? 4 - None AM-PAC Daily Activity Raw Score 24 Daily Activity T-Scale Score 57.54 Daily Activity CMS 0-100% Score 0 AM-PAC Daily Activity CMS Modifier CH ADL Assessment/Intervention Additional Documentation Lower Body Dressing Assessment/Training (Group);Toileting Assessment/Training (Group);Upper Body Dressing Assessment/Training (Group);Bathing Assessment/Training (Group) Bathing Assessment/Training Comment (Bathing) Pt educated on walk-in shower technique, pt verbalized understanding, taught backtechnique. Upper Body Dressing Assessment/Training [place] Level (UB Dressing) set up required;independent Lower Body Dressing Assessment/Training Assistive Devices (LB Dressing) sock-aid;block hacker Position (LB Dressing) sitting;standing [place] Level (LB Dressing) supervision required;verbal cues required Impairments (LB Dressing) pain;ROM (range of motion) decreased;strength decreased;balance impaired Comment (LB Dressing) Pt required increased time and verbal cuse to perform LB dressing w/ AE. Pt issued and educated sock-aid and block hacker. Toileting Assessment/Training Assistive Devices (Toileting) bedside commode Position (Toileting) sitting;standing [place] Level (Toileting) conditional independence Impairments (Toileting) pain;ROM (range of motion) decreased;strength decreased;balance impaired Comment (Toileting) Pt performed all aspects of toileting including ruddy-care. Plan of Care Review Plan Of Care Reviewed With patient Progress improving Clinical Impression Criteria for Skilled Therapeutic Interventions Met treatment indicated Rehab Potential good, to achieve stated therapy goals Therapy Frequency evaluation only Anticipated Equipment Needs at Discharge (Pt has all equipment needed) Anticipated Discharge Disposition home with assist;home with home health * Plan of Care - Alex Meehan RN - 04/02/2018 2:47 AM EDT OUTCOME EVALUATION NOTE: OUTCOME SUMMARY: Patient alert and oriented throughout shift. Vital signs stable. Levine catheter draining adequate amounts of urine. Dressing to right hip clean, dry and intact. Enhanced hip precautions maintained and patient able to reposition self in bed. Patient ringing appropriately, call bailey within reach, will continue to monitor. PLAN MOVING FORWARD: Pain control, ambulation, discharge INDIVIDUALIZED FALL PREVENTION INTERVENTIONS: Patient-specific fall risk factors per assessment: Recent hip surgery, weakness Assistance: 2 assist, FWW Supervision: Hands on Surveillance: Bed locked in low position, call bailey within reach, purposeful hourly rounding, clutter free environment, bed/chair alarm on, family at bedside Patient-specific fall prevention interventions for sensory deficits provided: Yes CPG GOAL OUTCOME EVALUATION: Continue care plan as documented. * Brief Op Note - Noemi Hudson MD - 04/01/2018 3:43 PM EDT Brief Operative Note Patient Name: Alyssa Burnham : [id number] MR#: [id number] Case Date: 04/01/2018 Surgeon: Surgeon(s) and Role: * Noemi Hudson MD - Primary * Sarah Mascorro MD - Resident-Surgeon Jad Preoperative diagnosis: Right AMBER mechanical failure Postoperative diagnosis: Right AMBER mechanical failure Procedure(s) (LRB): @TOTAL HIP REVISION ARTHROPLASTY, COMPLETE (WRVU 30.28) (Right) MODIFIER PINNACLE ACETABULUM DEPUY (N/A) MODIFIER S-ROM FEMORAL STEM DEPUY (N/A) Anesthesia: Anesthesia type not filed in the log. Findings: Disassociated poly liner and strip wear on the ceramic head Complications: None Intake: Intraprocedure Crystalloid Total None Transfusion No data found. Output: Estimated Blood Loss: * No values recorded between 04/01/2018 2:08 PM and 04/01/2018 3:43 PM * Urine Output:: 325 mL Other Output: (no other output recorded) Drains: NOne Specimens removed during surgery: * No orders in the log * Disposition: aroused from sedation, and taken to the recovery room in a stable condition Condition: doing well without problems Attestation: Case Date: 04/01/2018 I was present and I participated during the entire procedure (does not need to include opening and closing). (Please see the Surgical Encounter Summary for any Implant and Specimen details pertinent to this patient.) * Op Note - Noemi Hudson MD - 04/01/2018 3:42 PM EDT [facility] Operative Note Patient Name: Alyssa Burnham : [id number] MR#: [id number] Case Date: 04/01/2018 Surgeon: Surgeon(s) and Role: * Noemi Hudson MD - Primary * Sarah Mascorro MD - Resident-Surgeon Jad Preoperative Diagnosis: Mechanical failure of right hip replacement Postoperative Diagnosis: Same Procedure Performed: right Total Hip Arthroplasty Revision (CPT code 06482) Anesthesia: Spinal/Epidural IVF: 1100ml of crystaloid Estimated Blood Loss: 150ml Urine Output: 325ml Drains: none Specimens removed during surgery: * No orders in the log * Surgical Closure: Primary Closure - skin incision is completely closed without any wires, michael, drains or other devices Complications: None apparent Indications for the Procedure: Ms. Burnham is a 72 y.o. year old female who has been followed in the out-patient clinicwith a history right total hip replacement and eccentric location of her femoral head in the cup suspicious for disassociation of the liner. Given her radiographic findings, clinical findings of painand squeaking, she was an appropriate candidate for revision AMBER. A detailed conversation regardingthe risks and benefits of hip revision surgery was had with the patient. The risks discussed included but were not limited to: bleeding (which may or may not require transfusion), infection, damage to nerves or blood vessels, deep venous thrombosis, pulmonary embolus, prosthetic failure, loosening,prosthetic fracture, femur or pelvic fracture, dislocation, leg-length inequality, persistent pain,need for future surgery, medical complications (including cardiac, respiratory and neurologic complications), anaesthetic complications, and . Subsequent to this conversation, all of the patient? ??s questions were answered in great detail and informed consent was obtained for a right total hiparthroplasty revision. She received preoperative medical clearance and was felt optimized for surgery. Today, she identified the right hip as the correct operative side. Implants: Femoral Head: 32mm +0 ceramic head with revision sleeve Liner: Depuy Size 50mm, +4, 10 degree lip Intraoperative Findings: No gross evidence of infection. Hip aspirated for 20ml of metallic tinged fluid. Synovium sent to path/microbiology. The femoral and acetabular components were well fixed. The head and liner were removed and replaced without incident. Hip was stable at the end of the case to 90o flexion, 45o internal rotation, 10o adduction. Procedure: The patient was met in the pre-operative holding area where the appropriate site was marked, 24 hour update completed, and the pre-operative checklist completed. She was then brought to the operatingroom on a stretcher where the above anesthetic was administered. A levine catheter was introduced under sterile conditions She was transferred to the operating table where she was then transitioned to the lateral decubitusposition with the operative leg up. The hips were held in place with well padded hip positioners. An axillary roll was placed and all bony prominences were well padded. The non-operative leg had a venodyne in place. The operative leg was then prepped with chlorhexidine scrub followed by alcohol and Chloraprep. Once the prep was dry the leg was draped in a sterile fashion. A clinical time-out was held confirming the correct patient name, MRN, , planned procedure, site, antibiotic start time and agent, and outline of any surgical concerns. All in attendance were in agreement to proceed. Weight based dosing of tranexamic acid was administered prior to making an incision. Surgical Approach: A direct lateral approach to the hip was then undertaken through the prior skin incision. Upon reaching the anterior capsule, an 18g needle and syringe was then used to aspirate the hip joint and this was sent for a cell count. Excision of the anterior capsule was undertaken to expose the femoral head, cup, and proximal stem and synovium was sent for pathology. The hip was dislocated and then thefemoral head was then removed using a bone tamp and a mallet. The head was easily removed and therewas no gross evidence of trunion corrosion. The femoral stem was inspected and noted to be well fixed. The poly liner was noted to be disassociated from the cup. The cup was then exposed and noted jane well fixed. After completely clearing the locking mechanism of the cup and removing all debride a new lipped liner was inserted placing the lip posteriorly. The hip was then trailed with a 32x+0 head, which was noted to be stable through a full range of motion. The hip was brought through a fullrange of motion and found to be stable. Clinically leg lenghts felt symmetric. Satisfied, the trialhead was then removed. The femoral head was impacted onto a cleaned and dried serrano taper and notedto seat fully. The femoral head was then reduced into the acetabulum. Closure: The wound was copiously irrigated. The abductor split was repaired with ethibond suture through drill holes in the trochanter. The wound was irrigated again. The IT band fascia was tacked together with a 0 Vicryl then over sewn with a #2 running barbed suture. The wound was irrigated again and the deep tissues were closed using a 1 vicryl. A 2-0 monocryl was used to close the subcutaneous layer. The skin was closed with a running monocryl and skin glue was used as biologic sealant. A sterile Mepilex Ag dressing was applied to the wound. The needle, sponge and instrument counts were correct at the end of the procedure. The patient was then transferred back to the stretcher where a venodyne was placed on the operativeleg. An abduction pillow was placed. Attestation: Case Date: 04/01/2018 I was present and I participated during the entire procedure (does not need to include opening and closing). Noemi Hudson MD 04/01/2018 Post-operative Plan: (avoid IV narcotics) ?? D/C Levine catheter in PACU or upon arrival to floor if concern for fluid status ?? Encourage voiding q 4 hours. If unable to void bladder scan and encourage to void in 30 minutes.If PVR > 400 then straight cath. ?? AP Pelvis in PACU ?? Perioperative prophylactic antibiotics for the next 24 hours ?? Weight bearing status of operative extremity: Weight bearing as tolerated Posterior hip precautions with an abduction pillow while in bed ?? Wound closure: Subcuticular absorbable suture with skin glue ?? Dressing changes: Mepilex Silver (Do not change for 7 days then a dry sterile dressing) ?? Follow-up Plan: As scheduled prior to surgery (approx. 5 weeks with x-rays) ?? Anticoagulation: ASA 81mg BID for 30 days ?? Any possible barriers to discharge: None ?? Plan for hospital stay: Standard ?? Anticipated Length of Stay: 1-2 days Implant Summary: Implant Name Type Inv. Item Serial No. Karate Teacher Lot No. [id number] No. Used Action INSER,ALTRX,10D,+[id number]) (AUTOREQ) - [id number] IMPLANTS INSER,ALTRX,10D,+[id number]) (AUTOREQ) NSC HEMANTH [id number] Right 1 Implanted HEAD,FEM,S-ROM,ALUMA,32+0 ([id number]) - [id number] IMPLANTS HEAD,FEM,S- ROM,ALUMA,32+0 ([id number]) NSC HEMANTH [id number] Right 1 Implanted documented in this encounter Plan of Treatment Upcoming Encounters Date Type Department Care Team (Late st Contact Info) Description 02/26/2024 10:15 AM EDT Office Visit Endocrinology at [facility] [place] [address] Cornell Harper MD [facility] [place] [address] documented as of this encounter Procedures Procedure Name Priority Date/Time Associated Diagnosis Comments IMPLANTABLE DEVICES SCAN 04/03/2018 12:00 AM EDT ECG SCAN 04/03/2018 12:00 AM EDT HEMOGRAM Routine 04/02/2018 3:13 AM EDT DIFFERENTIAL, AUTOMATED Routine 04/02/2018 3:13 AM EDT CBC (WITH DIFF) Routine 04/02/2018 3:13 AM EDT BASIC METABOLIC PANEL (NON-FASTING) Routine 04/02/2018 3:13 AM EDT XR PELVIS Routine 04/01/2018 4:49 PM EDT PROSTHETIC JOINT CULTURE, EXTENDED HOLD, AEROBIC & ANAEROBIC Routine 04/01/2018 3:05 PM EDT JOINT CULTURE Routine 04/01/2018 3:05 PM EDT ANAEROBIC CULTURE Routine 04/01/2018 3:0 5 PM EDT PROSTHETIC JOINT CULTURE, EXTENDED HOLD, AEROBIC & ANAEROBIC Routine 04/01/2018 2:20 PM EDT JOINT CULTURE Routine 04/01/2018 2:20 PM EDT ANAEROBIC CULTURE Routine 04/01/2018 2:2 0 PM EDT CELL COUNT BODY FLUID STAT 04/01/2018 2:20 PM EDT MODIFIER S-ROM FEMORAL STEM DEPUY Yes 04/01/2018 1:04 PM EDT Prosthetic hip implant failure, initial encounter MODIFIER PINNACLE GRIPTION ACETABULUM DEPUY Yes 04/01/2018 1:04 PM EDT Prosthetic hip implant failure, initial encounter @TOTAL HIP REVISION ARTHROPLASTY, COMPLETE (WRVU 30.28) Yes 04/01/2018 1:04 PM EDT Prosthetic hip implant failure, initial encounter documented in this encounter Results * SCAN DOC: IMPLANTABLE DEVICES (04/03/2018 12:00 AM EDT) Narrative 04/03/2018 12:00 AM EDT Ordered by an unspecified provider. Scanning Provider MEDIA MGR SCAN EXT O RDR/RSLT * SCAN DOC: ECG (04/03/2018 12:00 AM EDT) Narrative 04/03/2018 12:00 AM EDT Ordered by an unspecified provider. Scanning Provider MEDIA MGR SCAN EXT O RDR/RSLT * (ABNORMAL) Differential, Automated (04/02/2018 3:13 AM EDT) Neutrophils % 90.7 % [facility] Neutr Abs (ANC) 7.83(H) 1.70 - 6.10 x10(3)/mc L [facility] Lymphocytes % 5.3 % [facility] Lymphocytes Abs 0.5(L) 0.9 - 3.2 x10(3)/mc L [facility] Monocytes % 3.6 % [facility] Monocyte Abs 0.3 0.3 - 0.9 x10(3)/[facility] Eosinophils % 0.0 % [facility] Eosinophils Abs 0.0 0.0 - 0.4 x10(3)/[facility] Basophils % 0.2 % [facility] Basophils Abs 0.0 0.0 - 0.1 x10(3)/[facility] Immature Gran % 0.20 % [facility] Comment: Immature granulocytes(IG's)percentage and absolute count will include metamyelocytes, myelocytes, and promyelocytes. Blood smears from CBCs yielding IG's will be scanned manually for concordance. If this scan disagrees with the automated IG or if promyelocytes are noted, a manual differential will be performed. Fay Gran Abs 0.02 0.00 - 0.04 x10(3)/[facility] Blood specimen (specimen) 04/02/2018 3:13 AM EDT 04/02/2018 3:46 AM EDT Narrative Resulting Agency Comment Spec In Lab Sarah Mascorro MD HEMATOLOGY ORDERABLE S [facility] [place] [address] * (ABNORMAL) Hemogram (04/02/2018 3:13 AM EDT) WBC 8.6 4.0 - 9.5 x10(3)/[facility] RBC 4.10 4.00 - 5.21 x10(6)/[facility] Hemoglobin 11.9 11.7 - 15.5 gm/dL [facility] Hematocrit 35.6(L) 35.7 - 45.8 % [facility] MCV 86.8 82.6 - 94.4 fL [facility] MCH 29.0 27.1 - 32.0 pg [facility] MCHC 33.4 31.7 - 35.0 gm/dL [facility] Platelets 203 145 - 357 x10(3)/[facility] RDWSD 42.4 37.0 - 46.0 [facility] RDWCV 13.2 11.5 - 14.1 % [facility] MPV 9.4 7.6 - 12.9 [facility] nRBC % Auto 0.0 % [facility] nRBC Abs Auto 0.000 0.000 - 0.000 x10(3)/[facility] Blood specimen (specimen) 04/02/2018 3:13 AM EDT 04/02/2018 3:46 AM EDT Narrative Resulting Agency Comment Spec In Lab Sarah Mascorro MD HEMATOLOGY ORDERABLE S [facility] [place] [address] * (ABNORMAL) Basic Metabolic Panel (non-fasting) (04/02/2018 3:13 AM EDT) Glucose Lvl 157 65 - 199 mg/dL [facility] Comment:Diabetes: >=200 mg/d L plus symptoms BUN 15 8 - 18 mg/dL [facility] Creatinine 0.90 0.70 - 1.20 mg/dL [facility] Sodium 141 135 - 145 mmol/L [facility] Potassium 4.2 3.5 - 5.0 mmol/L [facility] Comment: Please note: ??Patients with WBC >100,000 may have falsely elevated Potassium levels. ??For accurate Potassium quantification in these patients send serum separator tube (gold top) for subsequent determinations. ??Contact the Clinical Chemistry Laboratory if there are any questions. Chloride 105 98 - 107 mmol/L [facility] CO2 21(L) 22 - 31 mmol/L [facility] Anion Gap 15 5 - 15 mmol/L [facility] Calcium 8.8 8.5 - 10.5 mg/dL [facility] Estimated GFR 65 >=60 mL/min/1. 73 m?? [facility] Comment: The eGFR was calculated using the CKD-EPI equation. As with all creatinine based estimates of kidney function, eGFR values calculated with the CKD-EPI equation are not accurate in patients with acute kidney failure, extremes of body mass or the acutely ill. [email or web address] eGFR 75 >=60 mL/min/1. 73 m?? [facility] Comment: The eGFR was calculated using the CKD-EPI equation. As with all creatinine based estimates of kidney function, eGFR values calculated with the CKD-EPI equation are not accurate in patients with acute kidney failure, extremes of body mass or the acutely ill. [email or web address] Blood specimen (specimen) 04/02/2018 3:13 AM EDT 04/02/2018 3:46 AM EDT Narrative Resulting Agency Comment Spec In Lab Noemi Hudson MD CHEMISTRY ORDERABLE S Performing Organization Address City/State/[facility] Co de Phone Number [facility] [place] [phone] * XR Pelvis (Generic) (04/01/2018 4:49 PM EDT) Anatomical Region Laterality Modality Pelvis N/A Digital Radiogra phy Impressions 04/01/2018 4:53 PM EDT No immediate right hip revision arthroplasty complication identified. Narrative 04/01/2018 4:53 PM EDT EXAMINATION: XR PELVIS (GENERIC) CLINICAL HISTORY: s/p right AMBER revision TECHNIQUE: Portable AP supine radiograph of the pelvis from 04/01/2018 at 1645 hours. COMPARISON: 03/28/2018. FINDINGS: Revision right hip arthroplasty hardware appears well-seated. No immediate postoperative complication such as periprosthetic fracture seen. Unchanged appearance of the bony pelvic ring and the post arthroplasty appearance of the left hip. Procedure Note Lynn Jolly MD - 09/17/2018 EXAMINATION: XR PELVIS (GENERIC) CLINICAL HISTORY: s/p right AMBER revision TECHNIQUE: Portable AP supine radiograph of the pelvis from 04/01/2018 ml3205 hours. COMPARISON: 03/28/2018. FINDINGS: Revision right hip arthroplasty hardware appears well-seated.No immediate postoperative complication such as periprosthetic fractureseen. Unchanged appearance of the bony pelvic ring and the post arthroplasty appearance of the left hip. IMPRESSION No immediate right hip revision arthroplasty complication identified. Noemi Hudson MD IMG DX ORDERABLES * Anaerobic Culture (04/01/2018 3:05 PM EDT) Anaerobic Culture No anaerobic organisms isolated [facility] Joint specimen (specimen) RIGHT HIP REGION STRUCTURE / Unknown 04/01/2018 3:05 PM EDT 04/01/2018 4:07 PM EDT Comment:RIGHT HIP CAPSULE. Narrative Resulting Agency Comment Spec In Lab Noemi Hudson MD MICROBIOLOGY - GENE RAL ORDERABLES Performing Organization Address [facility]/ZIP Co de Phone Number [facility] [place] [place] [address] * Joint Culture (04/01/2018 3:05 PM EDT) Joint Culture No growth [facility] Gram Stain No Neutrophils seen. No microorganisms seen. [facility] Joint specimen (specimen) RIGHT HIP REGION STRUCTURE / Unknown 04/01/2018 3:05 PM EDT 04/01/2018 4:07 PM EDT Comment:RIGHT HIP CAPSULE. Narrative Resulting Agency Comment Spec In Lab Noemi Hudson MD MICROBIOLOGY - GENE RAL ORDERABLES Performing Organization Address City/[facility]/ZIP Co de Phone Number [facility] [place] [place] [address] * Anaerobic Culture (04/01/2018 2:20 PM EDT) Anaerobic Culture No anaerobic organisms isolated [facility] Joint fluid specimen (specimen) RIGHT HIP REGION STRUCTURE / Unknown 04/01/2018 2:20 PM EDT 04/01/2018 2:48 PM EDT Comment:RIGHT HIP FLUID. Narrative Resulting Agency Comment Spec In Lab Noemi Hudson MD MICROBIOLOGY - GENE RAL ORDERABLES Performing Organization Address City/[facility]/ZIP Co de Phone Number [facility] [place] [address] * Joint Culture (04/01/2018 2:20 PM EDT) Joint Culture No growth at 14 days. [facility] Gram Stain Cytocentrifuge Gram Stain performed Neutrophils seen No microorganisms seen. [facility] Joint fluid specimen (specimen) RIGHT HIP REGION STRUCTURE / Unknown 04/01/2018 2:20 PM EDT 04/01/2018 2:48 PM EDT Comment:RIGHT HIP FLUID. Narrative Resulting Agency Comment Spec In Lab Noemi Hudson MD MICROBIOLOGY - GENE RAL ORDERABLES Performing Organization Address City/[facility]/ZIP Co de Phone Number [facility] [place] [address] * Cell Count Body Fluid Hip, Right (04/01/2018 2:20 PM EDT) Spec Type BF Hip, Right [facility] Color BF Brown [facility] Appearance BF Cloudy [facility] WBC BF Ct 787 /mcl [facility] Comment: Guideline listed below apply to all body fluids. Differentials on BAL specimens are performed by the Cytology lab section. When Body Fluid WBC count is greater than Zero, a smear is made and scanned. All scan information is correlated with numeric results prior to being released to patients chart. Called by: MARTA, Read back by: Nancy Lam_, Date/Time:04/01/18 16:30_. Corrected from 787 /mcl [NA] on 04/01/18 04:30 by Miryam Holm. Polymorph % 27 % [facility] Comment: Polymorphonuclear cell percent and absolute values may contain Neutrophils, Eosinophils, and Basophils. Body fluid smear will be scanned manually for concordance. Mononuc % 73 % [facility] Comment: Mononuclear cell percent and absolute values may contain Lymphocytes and Monocytes. Body fluid smear will be scanned manually for concordance. Polymorph BF ABS 209 /[facility] LABORATORY Comment: Polymorphonuclear cell percent and absolute values may contain Neutrophils, Eosinophils, and Basophils. Body fluid smear will be scanned manually for concordance. Mononuc ABS 578 /[facility] Comment: Mononuclear cell percent and absolute values may contain Lymphocytes and Monocytes. Body fluid smear will be scanned manually for concordance. 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 documented in this encounter Administered Medications Inactive Administered Medications - up to 3 most recent administrations Medication Order MAR Action Action Date Dose Rate Site acetaminophen (TYLENOL) tablet 1,000 mg 1,000 mg, Oral, EVERY 8 HOURS SCHEDULED, First dose on Sun04/01/18 at 2100, Until Discontinued, Maximum dose of acetaminophen is 4000 mg from all sources in 24 hours., Routine Given 04/02/2018 5:20 AM EDT 1,000 mg Given 04/01/2018 8:24 PM EDT 1,000 mg acetaminophen (TYLENOL) tablet 1,000 mg 1,000 mg, Oral, ONCE, 1 dose, On Sun04/01/18 at 1230, Administer on arrival in Same Day Program, Day of Surgery (Day of Procedure), Routine Given 04/01/2018 12:40 PM EDT 1,000 mg atorvastatin (LIPITOR) tablet 40 mg 40 mg, Oral, DAILY, First dose on Sun04/02/18 at 0900, Until Discontinued, Routine Given 04/02/2018 9:01 AM EDT 40 mg ceFAZolin (ANCEF) 1g in dextrose 5% 50mL 1 g, Intravenous, EVERY 8 HOURS, 3 doses, First dose on Sun04/01/18 at 1645, Last dose on Sun04/02/18 at 0845, Administer over 30 Minutes, Adjust to 4 hours from intraoperative dose. * Beta-lactam based antibiotics (eg. Ampicillin, Cefazolin, Aztreonam) should be administered within 4 hours of the preceding intraoperative dose. * Vancomycin, Flouroquinolones, Clindamycin, Gentamicin, and Metronidazole should be administered within 8 hours of the preceding intraoperative dose., Recovery (Recovery-Hospital Unit), Indication for (Active or Suspected): Prophylaxis New Bag 04/02/2018 9:02 AM EDT 1 g 100 mL/ hr New Bag 04/02/2018 12:23 AM EDT 1 g 100 mL/hr New Bag 04/01/2018 6:05 PM EDT 1 g 100 mL/hr celecoxib (CeleBREX) capsule 200 mg 200 mg, Oral, 2 TIMES DAILY, First dose on Sun04/01/18 at 2100, Until Discontinued, Routine Given 04/02/2018 9:00 AM EDT 200 mg Given 04/01/2018 8:25 PM EDT 200 mg celecoxib (CeleBREX) capsule 400 mg 400 mg, Oral, ONCE, 1 dose, On Sun04/01/18 at 1230, Administer on arrival to Same Day Program, Day of Surgery (Day of Procedure), Routine Given 04/01/2018 12:40 PM EDT 400 mg dexamethasone (DECADRON) tablet 4 mg 4 mg, Oral, DAILY, 2 doses, First dose on Sun04/01/18 at 1930, Last dose on Sun04/02/18 at 0900, Routine Given 04/02/2018 8:59 AM EDT 4 mg Given 04/01/2018 8:29 PM EDT 4 mg gabapentin (NEURONTIN) capsule 300 mg 300 mg, Oral, NIGHTLY, First dose on Sun04/03/18 at 2100, Until Discontinued, Routine gabapentin (NEURONTIN) capsule 300 mg 300 mg, Oral, ONCE, 1 dose, On Sun04/01/18 at 1230, Administer on arrival in Same Day Program, Day of Surgery (Day of Procedure), Routine Given 04/01/2018 12:40 PM EDT 300 mg gabapentin (NEURONTIN) capsule 600 mg 600 mg, Oral, NIGHTLY, 2 doses, First dose on Sun04/01/18 at 2100, Last dose on Sun04/02/18 at 2100, Routine Given 04/01/2018 8:24 PM EDT 600 mg HYDROmorphone (DILAUDID) injection 0.2-0.4 mg 0.2-0.4 mg, Intravenous, EVERY 5 MIN PRN, Starting on Sun04/01/18 at 1559, Until Sun04/01/18 at 1758, Pain, Give 0.2 mg every 5 minutes PRN for mild to moderate pain (1-5) Give 0.4 mg every 5 minutes PRN for moderate to severe pain (6-10). Hold for respiratory rate less than 10 per minute. Maximum dose 4 mg over one hour. If multiple pain medications are ordered, start with hydromorphone or morphine and use fentanyl for breakthrough pain., PACU Recovery, Routine Given 04/01/2018 4:59 PM EDT 0.4 mg Given 04/01/2018 4:18 PM EDT 0.4 mg HYDROmorphone (DILAUDID) tablet 2-6 mg 2-6 mg, Oral, EVERY 4 HOURS PRN, Starting on Sun04/01/18 at 1620, Until Sun04/02/18 at 1937, Pain, Give 2 mg for mild pain (1-3), 4 mg for moderate pain (4-6) or 6 mg for severe pain (7-10) DO NOT exceed a total of 6 mg in 4 hours, Routine Given 04/02/2018 5:01 PM EDT 2 mg Given 04/02/2018 11:38 AM EDT 2 mg Given 04/01/2018 4:27 PM EDT 2 mg ondansetron (ZOFRAN) injection 4 mg 4 mg, Intravenous, EVERY 8 HOURS PRN, Starting on Sun04/01/18 at 1843, Until Sun04/02/18 at 1937, Nausea, May repeat times one in 30 minutes if ineffective. If multiple antiemetics are ordered, use ondanstron first, Recovery (Recovery-Hospital Unit) ondansetron (ZOFRAN) tablet 4 mg 4 mg, Oral, EVERY 8 HOURS PRN, Starting on Sun04/01/18 at 1843, Until Sun04/02/18 at 1937, Nausea, Vomiting, If multiple antiemetics are ordered, use ondansetron first. PO Preferred. If patient unable to take PO, may give IV if ordered. May repeat times one in 45 minutes if ineffective., Recovery (Recovery-Hospital Unit), Routine pantoprazole (PROTONIX) tablet 40 mg 40 mg, Oral, DAILY, First dose on Sun04/01/18 at 1930, Until Discontinued Given 04/02/2018 8:59 AM EDT 40 mg Given 04/01/2018 8:29 PM EDT 40 mg polyethylene glycol (MIRALAX) packet 17 g 17 g, Oral, 2 TIMES DAILY, First dose on Sun04/01/18 at 2100, Until Discontinued, Routine Given 04/02/2018 9:02 AM EDT 17 g senna-docusate (PERICOLACE) 8.6-50 mg per tablet 2 tablet 2 tablet, Oral, 2 TIMES DAILY, First dose on Sun04/01/18 at 2100, Until Discontinued, Routine Given 04/02/2018 9:00 AM EDT 2 tablets sertraline (ZOLOFT) tablet 50 mg 50 mg, Oral, DAILY, First dose on Sun04/01/18 at 1930, Until Discontinued Given 04/02/2018 9:01 AM EDT 50 mg sodium chloride 0.9 % flush 5 mL 5 mL, Intravenous, 2 TIMES DAILY, First dose on Sun04/01/18 at 2100, Until Discontinued, Recovery (Recovery-Hospital Unit), Routine Given 04/02/2018 9:02 AM EDT 5 mLs Given 04/01/2018 8:30 PM EDT 5 mLs sodium chloride 0.9% infusion 50 mL/hr, Intravenous, CONTINUOUS, Starting on Sun04/01/18 at 1645, Until Sun04/02/18 at 1937, Recovery (Recovery-Hospital Unit) New Bag 04/01/2018 4:34 PM EDT 50 mL/h r 50 mL/hr documented in this encounter Active and Recently Administered Medications Times are shown in EDT. Scheduled Medication Order 03/31/2018 04/01/2018 04/02/2018 acetaminophen (TYLENOL) tablet 1,000 mg 1,000 mg, Oral, EVERY 8 HOURS SCHEDULED, First dose on Sun04/01/18 at 2100, Until Discontinued, Maximum dose of acetaminophen is 4000 mg from all sources in 24 hours., Routine 2023 (Given - Provider: Alex Meehan RN)2119 (Not Given - Provider: Alex Meehan RN - Reason: See comment - Comment: Duplicate order) 0520 (Given - Provider: Alex Meehan RN) acetaminophen (TYLENOL) tablet 1,000 mg (COMPLETED) 1,000 mg, Oral, ONCE, 1 dose, On Sun04/01/18 at 1230, Administer on arrival in Same Day Program, Day of Surgery (Day of Procedure), Routine 1240 (Given - Provider: Yolanda Guerrero RN) aspirin EC tablet 81 mg 81 mg, Oral, 2 TIMES DAILY, First dose on Sun04/01/18 at 2100, Until Discontinued, Routine 2100 (Not Given - Provider: Alex Meehan RN - Reason: See comment - Comment: On allergy list) 0900 (Not Given - Provider: Hima Reinoso RN - Reason: Patient/family refused) atorvastatin (LIPITOR) tablet 40 mg 40 mg, Oral, DAILY, First dose on Sun04/02/18 at 0900, Until Discontinued, Routine 0901 (Given - Provid er: Hima Reinoso RN) ceFAZolin (ANCEF) 1g in dextrose 5% 50mL (COMPLETED) 1 g, Intravenous, EVERY 8 HOURS, 3 doses, First dose on Sun04/01/18 at 1645, Last dose on Sun04/02/18 at 0845, Administer over 30 Minutes, Adjust to 4 hours from intraoperative dose. * Beta-lactam based antibiotics (eg. Ampicillin, Cefazolin, Aztreonam) should be administered within 4 hours of the preceding intraoperative dose. * Vancomycin, Flouroquinolones, Clindamycin, Gentamicin, and Metronidazole should be administered within 8 hours of the preceding intraoperative dose., Recovery (Recovery-Hospital Unit), Indication for (Active or Suspected): Prophylaxis 1804 (New Bag - Provider: Nancy Persaud RN)183 (Stopped - Provider: Alex Meehan RN) 0023 (New Bag - Provider: Alex Meehan RN)0053 (Stopped - Provider: Alex Meehan RN)0902 (New Bag - Provider: Hima Reinoso, DALILA)0932 (Stopped - Provider: Beatriz Asencio RN) ceFAZolin (ANCEF) 2g in dextrose 5% 100 mL (COMPLETED) 2 g, Intravenous, EVERY 3 HOURS, 1 dose, First dose on Sun04/01/18 at 1230, Administer over 30 Minutes, Redose after 3 hours., Intra-Operative (Intra-Procedure), Indication for (Active or Suspected): Prophylaxis 1351 (Given - Provider: Cristian Mahan CRNA) celecoxib (CeleBREX) capsule 200 mg 200 mg, Oral, 2 TIMES DAILY, First dose on Sun04/01/18 at 2100, Until Discontinued, Routine 2024 (Given - Provider: Alex Meehan RN) 0900 (Given - Provider: Hima Reinoso, DALILA) celecoxib (CeleBREX) capsule 400 mg (COMPLETED) 400 mg, Oral, ONCE, 1 dose, On Sun04/01/18 at 1230, Administer on arrival to Same Day Program, Day of Surgery (Day of Procedure), Routine 1240 (Given - Provider: Yolanda Guerrero RN) dexamethasone (DECADRON) tablet 4 mg (COMPLETED) 4 mg, Oral, DAILY, 2 doses, First dose on Sun04/01/18 at 1930, Last dose on Sun04/02/18 at 0900, Routine 2028 (Given - Provider: Alex Meehan RN) 0859 (Given - Provider: Hima Reinoso, DALILA) gabapentin (NEURONTIN) capsule 300 mg(Linked Group 1) 300 mg, Oral, NIGHTLY, First dose on Sun04/03/18 at 2100, Until Discontinued, Routine gabapentin (NEURONTIN) capsule 300 mg (COMPLETED) 300 mg, Oral, ONCE, 1 dose, On Sun04/01/18 at 1230, Administer on arrival in Same Day Program, Day of Surgery (Day of Procedure), Routine 1240 (Given - Provider: Yolanda Guerrero RN) gabapentin (NEURONTIN) capsule 600 mg(Linked Group 1) 600 mg, Oral, NIGHTLY, 2 doses, First dose on Sun04/01/18 at 2100, Last dose on Sun04/02/18 at 2100, Routine 2023 (Given - Provider: Alex Meehan RN) pantoprazole (PROTONIX) tablet 40 mg 40 mg, Oral, DAILY, First dose on Sun04/01/18 at 1930, Until Discontinued 2028 (Given - Provider: Alex Meehan RN) 0859 (Given - Provider: Hima Reinoso, DALILA) polyethylene glycol (MIRALAX) packet 17 g 17 g, Oral, 2 TIMES DAILY, First dose on Sun04/01/18 at 2100, Until Discontinued, Routine 2099 (Not Given - Provider: Alex Meehan RN - Reason: Patient/family refused) 09 (Given - Provider: Hima Reinoso, DALILA) senna-docusate (PERICOLACE) 8.6-50 mg per tablet 2 tablet 2 tablet, Oral, 2 TIMES DAILY, First dose on Sun04/01/18 at 2100, Until Discontinued, Routine 2099 (Not Given - Provider: Alex Meehan RN - Reason: Patient/family refused) 09 (Given - Provider: Hima Reinoso RN) sertraline (ZOLOFT) tablet 50 mg 50 mg, Oral, DAILY, First dose on Sun04/01/18 at 1930, Until Discontinued 2099 (Not Given - Provider: Alex Meehan RN - Reason: Patient/family refused) 0901 (Given - Provider: Hima Reinoso, DALILA) sodium chloride 0.9 % flush 5 mL 5 mL, Intravenous, 2 TIMES DAILY, First dose on Sun04/01/18 at 2100, Until Discontinued, Recovery (Recovery-Hospital Unit), Routine 2029 (Given - Provider: Alex Meehan RN) 09 (Given - Provider: Hima Reinoso, DALILA) Continuous Medication Order 03/31/2018 04/01/2018 04/02/2018 sodium chloride 0.9% infusion 50 mL/hr, Intravenous, CONTINUOUS, Starting on Sun04/01/18 at 1645, Until Sun04/02/18 at 1937, Recovery (Recovery-Hospital Unit) 1634 (New Bag - Provider: Flower Persaud RN) PRN Medication Order 03/31/2018 04/01/2018 04/02/2018 albuterol (PROVENTIL) nebulizer solution 2.5 mg 2.5 mg, Nebulization, EVERY 2 HOURS PRN, Starting on Sun04/01/18 at 1843, Until Sun04/02/18 at 193, Wheezing, Shortness of Breath, Routine bisacodyl (DULCOLAX) EC tablet 10 mg 10 mg, Oral, 2 TIMES DAILY PRN, Starting on Sun04/01/18 at 1843, Until Sun04/02/18 at 1937, Constipation, DO NOT CRUSH OR OPEN Administer if needed per patient's routine or if no bowel movement within 48 hours to achieve: (1) One bowel movement every 48 hours, AND (2) without straining. If multiple PRN bowel medications ordered, start with lactulose, then oral bisacodyl, then bisacodyl suppository. Multiple medications may be given concomitantly for constipation., Routine bisacodyl (DULCOLAX) suppository 10 mg 10 mg, Rectal, DAILY PRN, Starting on Sun04/01/18 at 1843, Until Sun04/02/18 at 193, Constipation, Administer if needed per patient's routine or if no bowel movement within 48 hours to achieve: (1) One bowel movement every 48 hours, AND (2) without straining. If multiple PRN bowel medications ordered, start with lactulose, then oral bisacodyl, then bisacodyl suppository. Multiple medications may be given concomitantly for constipation., Routine HYDROmorphone (DILAUDID) injection 0.2-0.4 mg (CANCELED) 0.2-0.4 mg, Intravenous, EVERY 5 MIN PRN, Starting on Sun04/01/18 at 1559, Until Sun04/01/18 at 1758, Pain, Give 0.2 mg every 5 minutes PRN for mild to moderate pain (1-5) Give 0.4 mg every 5 minutes PRN for moderate to severe pain (6-10). Hold for respiratory rate less than 10 per minute. Maximum dose 4 mg over one hour. If multiple pain medications are ordered, start with hydromorphone or morphine and use fentanyl for breakthrough pain., PACU Recovery, Routine 1618 (Given - Provider: Nancy Persaud RN)1659 (Given - Provider: Nancy Persaud RN) HYDROmorphone (DILAUDID) tablet 2-6 mg 2-6 mg, Oral, EVERY 4 HOURS PRN, Starting on Sun04/01/18 at 1620, Until Sun04/02/18 at 193, Pain, Give 2 mg for mild pain (1-3), 4 mg for moderate pain (4-6) or 6 mg for severe pain (7-10) DO NOT exceed a total of 6 mg in 4 hours, Routine 1627 (Given - Provider: Nancy Persaud RN) 1138 (Given - Provider: Hima Reinoso, DALILA)1701 (Given - Provider: Hima Reinoso, DALILA) ketorolac (TORADOL) injection 15 mg 15 mg, Intravenous, EVERY 6 HOURS PRN, Starting on Sun04/01/18 at 1620, Until Sun04/02/18 at 193, Pain, Routine lactulose (CHRONULAC) 20 gram/30 mL oral solution 20-40 g 20-40 g (30-60 mL), Oral, DAILY PRN, Starting on Sun04/01/18 at 1843, Until Sun04/02/18 at 193, Constipation, Administer if needed per patient's routine or if no bowel movement within 48 hours to achieve: (1) One bowel movement every 48 hours, AND (2) without straining. If multiple PRN bowel medications ordered, start with lactulose, then oral bisacodyl, then bisacodyl suppository. Multiple medications may be given concomitantly for constipation., Routine lidocaine (XYLOCAINE) 10 mg/mL (1 %) injection 3 mg 3 mg (0.3 mL), Subcutaneous, ONCE PRN, 1 dose, Starting on Sun04/01/18 at 1843, Until Sun04/02/18 at 193, for discomfort with PIV insertion, Recovery (Recovery-Hospital Unit), Routine ondansetron (ZOFRAN) injection 4 mg(Linked Group 2) 4 mg, Intravenous, EVERY 8 HOURS PRN, Starting on Sun04/01/18 at 1843, Until Sun04/02/18 at 193, Nausea, May repeat times one in 30 minutes if ineffective. If multiple antiemetics are ordered, use ondanstron first, Recovery (Recovery-Hospital Unit) ondansetron (ZOFRAN) tablet 4 mg(Linked Group 2) 4 mg, Oral, EVERY 8 HOURS PRN, Starting on Sun04/01/18 at 1843, Until Sun04/02/18 at 193, Nausea, Vomiting, If multiple antiemetics are ordered, use ondansetron first. PO Preferred. If patient unable to take PO, may give IV if ordered. May repeat times one in 45 minutes if ineffective., Recovery (Recovery-Hospital Unit), Routine povidone-iodine 5 % ophthalmic solution (CANCELED) ONCE PRN, Starting on Sun04/01/18 at 1317, Until Sun04/02/18 at 1937, Intra-Operative (Intra-Procedure), Routine 1317 (Given - Provider: Noemi Hudson MD - Comment: 30 ml 5% opthalmic betadine mixed in 500 ml 0.9% nacl and used as irrigation.) sodium chloride 0.9 % flush 5-20 mL 5-20 mL, Intravenous, EVERY 1 MIN PRN, Starting on Sun04/01/18 at 1843, Until Sun04/02/18 at 193, flush, Flush pertains to all indwelling lines. Flush per protocol found in the job aid using the link provided on this medication record., Recovery (Recovery-Hospital Unit), Routine Linked Groups Order Group 1: gabapentin (NEURONTIN) capsule 600 mgJump to med 600 mg, Oral, NIGHTLY, 2 doses, First dose on Sun04/01/18 at 2100, Last dose on Sun04/02/18 at 2100, Routine Followed by gabapentin (NEURONTIN) capsule 300 mgJump to med 300 mg, Oral, NIGHTLY, First dose on Sun04/03/18 at 2100, Until Discontinued, Routine Group 2: ondansetron (ZOFRAN) tablet 4 mgJump to med 4 mg, Oral, EVERY 8 HOURS PRN, Starting on Sun04/01/18 at 1843, Until Sun04/02/18 at 1937, Nausea, Vomiting, If multiple antiemetics are ordered, use ondansetron first. PO Preferred. If patient unable to take PO, may give IV if ordered. May repeat times one in 45 minutes if ineffective., Recovery (Recovery-Hospital Unit), Routine Or ondansetron (ZOFRAN) injection 4 mgJump to med 4 mg, Intravenous, EVERY 8 HOURS PRN, Starting on Sun04/01/18 at 1843, Until Sun04/02/18 at 1937, Nausea, May repeat times one in 30 minutes if ineffective. If multiple antiemetics are ordered, use ondanstron first, Recovery (Recovery- Hospital Unit) documented in this encounter Care Teams Solar Energy Technician Relationship Specialty Start Date End Date Baylee Elena, HOUSE MOVER PCP - General Family Medicine 03/25/18 03/01/22 documented as of this encounter
--- OUTSIDE RECORDS SUMMARY | 2024-01-25 00:28 | XMS_ITS | Encounter Summary ---
Author Organization [facility] [place] [address] Care Team Providers Care J2Ee Application Developer Name Role Phone Jamarcus Rodriguez MD Primary Care Provider [phone] Encounter Details Date Type Department Care Team (Late st Contact Info) Description 12/25/2014 Orders [place] [id number] Betty Dong APRN [facility] [place] [address] Aftercare following joint replacement Social History Tobacco Use Types Packs/Day Years [...] 10:15 AM EDT Office [place] [phone] Cornell Harper MD [facility] [place] [address] documented as of this encounter Visit Diagnoses Diagnosis Aftercare following joint replacement documented in this encounter Care Teams J2Ee Application Developer Relationship Specialty Start Date End Date Jamarcus Rodriguez MD [address] [place] [address] PCP - General 06/07/10 03/24/18 documented as of this encounter
--- OUTSIDE RECORDS SUMMARY | 2024-01-25 00:28 | XMS_ITS | Encounter Summary ---
Author Organization [facility] [place] [address] Care Team Providers Care Box Sealing Machine Feeder Name Role Phone Ulices Baylee Mayorga APRN Primary Care Provider [phone] Encounter Details Date Type Department Care Team (Latest Contact Info) Description 03/28/2018 12:50 PM EDT Laboratory [place] [phone] Prosthetic hip implant failure, initial encounter; Pain [...] 10:15 AM EDT Office [place] [phone] Cornell Harper MD [facility] [place] [address] documented as of this encounter Procedures Procedure Name Priority Date/Time Associated Diagnosis Comments ABORH RECHECK STATUS Routine 03/28/2018 1:08 PM EDT CRP, ACUTE INFLAMMATION Routine 03/28/2018 1:08 PM EDT HEMOGRAM Routine 03/28/2018 1:08 PM EDT Prosthetic hip implant failure, initial encounter Pain of right lower extremity DIFFERENTIAL, AUTOMATED Routine 03/28/2018 1:08 PM EDT Prosthetic hip implant failure, initial encounter Pain of right lower extremity TYPE AND SCREEN, SDP (FUTURE SURGERY, [facility] SAME DAY PROGRAM ONLY) Routine 03/28/2018 1:08 PM EDT Prosthetic hip implant failure, initial encounter Pain of right lower extremity ABO/RH TYPING Routine 03/28/2018 1:08 PM EDT Prosthetic hip implant failure, initial encounter Pain of right lower extremity APTT Routine 03/28/2018 1:08 PM EDT Prosthetic hip implant failure, initial encounter Pain of right lower extremity SEDIMENTATION RATE Routine 03/28/2018 1: 08 PM EDT PROTHROMBIN TIME Routine 03/28/2018 1:08 PM EDT Prosthetic hip implant failure, initial encounter Pain of right lower extremity CBC (WITH DIFF) Routine 03/28/2018 1:08 PM EDT Prosthetic hip implant failure, initial encounter Pain of right lower extremity ANTIBODY SCREEN Routine 03/28/2018 1:08 PM EDT Prosthetic hip implant failure, initial encounter Pain of right lower extremity BASIC METABOLIC PANEL (NON-FASTING) Routine 03/28/2018 1:08 PM EDT Prosthetic hip implant failure, initial encounter Pain of right lower extremity documented in this encounter Results * Sedimentation rate (03/28/2018 1:08 PM EDT) Sed Rate 11 0 - 20 mm/hr [facility] Blood specimen (specimen) Venous Draw / Unknown 03/28/2018 1:08 PM EDT 03/28/2018 1:36 PM EDT Narrative Resulting Agency Comment Spec In Lab Good AMES HEMATOLOGY ORDERABL ES Performing Organization Address [facility]/ZIP Co de Phone Number [facility] [place] [address] * CRP, acute inflammation (03/28/2018 1:08 PM EDT) Pathologist [facility] CRP 3.4 <=4.9 mg/L [facility] Blood specimen (specimen) Venous Draw / Unknown 03/28/2018 1:08 PM EDT 03/28/2018 1:40 PM EDT Narrative Resulting Agency Comment Spec In Lab [facility] CHEMISTRY ORDERABLE S Performing Organization Address [facility] Co de Phone Number [facility] [place] [address] * ABORH Recheck Status (03/28/2018 1:08 PM EDT) Pathologist [facility] ABORH Type Recheck Completed [facility] Blood specimen (specimen) 03/28/2018 1:08 PM EDT 03/28/2018 1:37 PM EDT Narrative Resulting Agency Comment Spec In Lab Noemi Hudson MD [facility] [place] Performing Organization Address [facility]/ZIP Co de Phone Number [facility] [place] [address] * Differential, Automated (03/28/2018 1:08 PM EDT) Pathologist [facility] Neutrophils % 70.6 % [facility] Neutr Abs (ANC) 4.50 1.70 - 6.10 x10(3)/[facility] Lymphocytes % 20.4 % [facility] Lymphocytes Abs 1.3 0.9 - 3.2 x10(3)/[facility] Monocytes % 6.8 % [facility] Monocyte Abs 0.4 0.3 - 0.9 x10(3)/[facility] Eosinophils % 1.6 % [facility] Eosinophils Abs 0.1 0.0 - 0.4 x10(3)/[facility] Basophils % 0.3 % [facility] Basophils Abs 0.0 0.0 - 0.1 x10(3)/[facility] Immature Gran % 0.30 % [facility] Comment: Immature granulocytes(IG's)percentage and absolute count will include metamyelocytes, myelocytes, and promyelocytes. Blood smears from CBCs yielding IG's will be scanned manually for concordance. If this scan disagrees with the automated IG or if promyelocytes are noted, a manual differential will be performed. Fay Gran Abs 0.02 0.00 - 0.04 x10(3)/[facility] Blood specimen (specimen) 03/28/2018 1:08 PM EDT 03/28/2018 1:36 PM EDT Narrative Resulting Agency Comment Spec In Lab Noemi Hudson MD HEMATOLOGY ORDERABL ES [facility] [place] [address] * Hemogram (03/28/2018 1:08 PM EDT) WBC 6.4 4.0 - 9.5 x10(3)/[facility] RBC 4.59 4.00 - 5.21 x10(6)/[facility] Hemoglobin 13.0 11.7 - 15.5 gm/dL [facility] Hematocrit 39.5 35.7 - 45.8 % [facility] MCV 86.1 82.6 - 94.4 fL [facility] MCH 28.3 27.1 - 32.0 pg [facility] MCHC 32.9 31.7 - 35.0 gm/dL [facility] Platelets 213 145 - 357 x10(3)/[facility] RDWSD 41.9 37.0 - 46.0 [facility] RDWCV 13.3 11.5 - 14.1 % [facility] MPV 9.7 7.6 - 12.9 [facility] nRBC % Auto 0.0 % [facility] nRBC Abs Auto 0.000 0.000 - 0.000 x10(3)/[facility] Blood specimen (specimen) 03/28/2018 1:08 PM EDT 03/28/2018 1:36 PM EDT Narrative Resulting Agency Comment Spec In Lab Noemi Hudson MD HEMATOLOGY ORDERABL ES Performing Organization Address [facility] Co de Phone Number [facility] [place] [address] * Antibody screen (03/28/2018 1:08 PM EDT) Ab Screen Interp Negative [facility] Expires at [id number] on: 04/04/2018 [facility] Blood specimen (specimen) 03/28/2018 1:08 PM EDT 03/28/2018 1:37 PM EDT Narrative Resulting Agency Comment Spec In Lab Noemi Hudson MD BLOOD BANK LAB ORDE [place]ABKARL Performing Organization Address City/[facility]/ZIP Co de Phone Number [facility] [place] [address] * ABO/Rh Typing (03/28/2018 1:08 PM EDT) ABORH Type A Pos [facility] Blood specimen (specimen) 03/28/2018 1:08 PM EDT 03/28/2018 1:37 PM EDT Narrative Resulting Agency Comment Spec In Lab Noemi Hudson MD BLOOD BANK LAB ORDE RABKARL Performing Organization Address City/[facility]/ZIP Co de Phone Number [facility] [place] [address] * APTT (03/28/2018 1:08 PM EDT) PTT 29 25 - 37 sec [facility] Comment: The PTT is NOT appropriate for heparin monitoring. Use the Anti-Xa level for heparin monitoring (HEP UFH) or LMWH monitoring (HEP LMW). A PTT less than 37 seconds generally indicates adequate hemostasis. Blood specimen (specimen) 03/28/2018 1:08 PM EDT 03/28/2018 1:36 PM EDT Narrative Resulting Agency Comment Spec In Lab Noemi Hudson MD HEMATOLOGY ORDERABL ES Performing Organization Address [facility] Co de Phone Number [facility] [place] [address] * Prothrombin Time (03/28/2018 1:08 PM EDT) PT 11.1 9.4 - 12.5 sec [facility] INR 1.0 [facility] Comment: An INR <2.0 indicates adequate procoagulant activity for hemostasis in most patients without underlying bleeding disorders, though the INR may not adequately reflect hemostatic capacity in patients with liver disease and synthetic impairment. The recommended target INR range for therapeutic anticoagulation is 2.0 ? 3.0 for most applications, though lower and higher ranges may be appropriate depending on clinical circumstances. Blood specimen (specimen) 03/28/2018 1:08 PM EDT 03/28/2018 1:36 PM EDT Narrative Resulting Agency Comment Spec In Lab Noemi Hudson MD HEMATOLOGY ORDERABL ES Performing Organization Address [facility]/ZIP Co de Phone Number [facility] [place] [address] * (ABNORMAL) Basic Metabolic Panel (non-fasting) (03/28/2018 1:08 PM EDT) Glucose Lvl 98 65 - 199 mg/dL [facility] Comment:Diabetes: >=200 mg/d L plus symptoms BUN 17 8 - 18 mg/dL [facility] Creatinine 0.83 0.70 - 1.20 mg/dL [facility] Sodium 141 135 - 145 mmol/L [facility] Potassium 4.0 3.5 - 5.0 mmol/L [facility] Comment: Please note: ??Patients with WBC >100,000 may have falsely elevated Potassium levels. ??For accurate Potassium quantification in these patients send serum separator tube (gold top) for subsequent determinations. ??Contact the Clinical Chemistry Laboratory if there are any questions. Chloride 103 98 - 107 mmol/L [facility] CO2 22 22 - 31 mmol/L [facility] Anion Gap 16(H) 5 - 15 mmol/L [facility] Calcium 9.4 8.5 - 10.5 mg/dL [facility] Estimated GFR 71 >=60 mL/min/1. 73 m?? [facility] Comment: The eGFR was calculated using the CKD-EPI equation. As with all creatinine based estimates of kidney function, eGFR values calculated with the CKD-EPI equation are not accurate in patients with acute kidney failure, extremes of body mass or the acutely ill. [email or web address] eGFR 83 >=60 mL/min/1. 73 m?? [facility] Comment: The eGFR was calculated using the CKD-EPI equation. As with all creatinine based estimates of kidney function, eGFR values calculated with the CKD-EPI equation are not accurate in patients with acute kidney failure, extremes of body mass or the acutely ill. [email or web address] Blood specimen (specimen) 03/28/2018 1:08 PM EDT 03/28/2018 1:36 PM EDT Narrative Resulting Agency Comment Spec In Lab Noemi Hudson MD CHEMISTRY ORDERABLE S [facility] [place] [address] documented in this encounter Visit Diagnoses Diagnosis Prosthetic hip implant failure, initial encounter Pain of right lower extremity documented in this encounter Care Teams Box Sealing Machine Feeder Relationship Specialty Start Date End Date Baylee Elena APRN PCP - General Family Medicine 03/25/18 03/01/22 documented as of this encounter
--- OUTSIDE RECORDS SUMMARY | 2024-01-25 00:28 | XMS_ITS | Encounter Summary ---
Author Organization [facility] Address [facility] [place] [address] Care Team Providers Care Hydrodynamicist Name Role Phone Ulices Baylee Mayorga APRN Primary Care Provider [phone] Encounter Details Date Type Department Care Team (Latest Contact Info) Description 04/30/2018 2:31 PM EDT - 04/30/2018 11:59 PM EDT Hospital Encounter XRay at [address] [place] [address] Noemi Hudson MD [facility] [place] [address] Prosthetic hip implant failure, initial encounter; Pain of right lower extremity Discharge Disposition: Home Social History Tobacco Use [...] daily. 07/03/2018 documented as of this encounter Plan of Treatment Upcoming Encounters Date Type Department Care Team (Late st Contact Info) Description 02/26/2024 10:15 AM EDT Office Visit Endocrinology at [facility] [place] [phone] Cornell Harper MD [facility] [address] documented as of this encounter Procedures Procedure Name Priority Date/Time Associated Diagnosis Comments XR PELVIS AND HIP 2 VIEWS RIGHT Routine 04/30/2018 2:52 PM EDT Prosthetic hip implant failure, initial encounter Pain of right lower extremity documented in this encounter Results * XR Pelvis w AP & Lat Hip Right (04/30/2018 2:52 PM EDT) Anatomical Region Laterality Modality Pelvis, Hip Right Digital Radiogra phy Impressions 04/30/2018 5:07 PM EDT 1. ??Right revision AMBER without evidence of postoperative complication. Stable submillimeter periprostatic lucencies are noted. 2. ??Left AMBER with submillimeter periprosthetic lucency. I have personally reviewed the image(s) and the residents interpretation and agree with the findings, Vibha Petersen at 04/30/2018 5:07 PM Narrative 04/30/2018 5:07 PM EDT EXAMINATION: XR PELVIS W AP AND LAT HIP RIGHT CLINICAL HISTORY: History of hip replacement TECHNIQUE: AP pelvis and AP and lateral right hip views. COMPARISON: Pelvis radiographs dating back to 09/25/2008. 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 Soft tissue air lateral to the right hip is no longer seen. Unchanged less than 2 mm lucency surrounding the right femoral component. No evidence for postoperative complication. Heterotopic bone formation is again seen adjacent to the greater trochanter. There is a less than 2 mm lucency at the lateral border of the left femoral component. This is new from 2013 and slightly more apparent than on the 2014 study. Procedure Note Vibha Petersen MD - 04/30/2018 EXAMINATION: XR PELVIS W AP AND LAT HIP RIGHT CLINICAL HISTORY: History of hip replacement TECHNIQUE: AP pelvis and AP and lateral right hip views. COMPARISON: Pelvis radiographs dating back to 09/25/2008. FINDINGS: Patient is status post left total hip arthroplasty and right revisionhip arthroplasty (replacement of head and liner). Soft tissue air lateral to the right hip is no longer seen. Unchanged lessthan 2 mm lucency surrounding the right femoral component. No evidence for postoperative complication. Heterotopic bone formation is again seenadjacent to the greater trochanter. There is a less than 2 mm lucency at the lateral border of the leftfemoral component. This is new from 2013 and slightly more apparent than on [id number] study. IMPRESSION 1. Right revision AMBER without evidence of postoperative complication.Stable submillimeter periprostatic lucencies are noted. 2. Left AMBER with submillimeter periprosthetic lucency. I have personally reviewed the image(s) and the residents interpretationand agree with the findings, Vibha Petersen at 04/30/2018 5:07 PM Noemi Hudson MD IMG DX ORDERABLES documented in this encounter Visit Diagnoses Diagnosis Prosthetic hip implant failure, initial encounter Pain of right lower extremity documented in this encounter Care Teams Hydrodynamicist Relationship Specialty Start Date End Date Baylee Elena, RESEARCH PROJECT MANAGER PCP - General Family Medicine 03/25/18 03/01/22 documented as of this encounter
--- OUTSIDE RECORDS SUMMARY | 2024-01-25 00:28 | XMS_ITS | Encounter Summary ---
Author Organization [facility] [place] [address] Care Team Providers Care Motorcyles Final Inspector Name Role Phone Baylee Elena APRN Primary Care Provider [phone] Reason for Visit * Auth/Cert Specialty Diagnoses / Procedures Referred By Calin vasquez Referred To Contact Diagnoses Prosthetic hip implant failure, initial encounter Right AMBER mechanical failure Procedures PRO REVISE TOTAL HIP REPLACEMENT @TOTAL HIP REVISION ARTHROPLASTY, COMPLETE (WRVU 30.28) Referral ID Status Reason Start Date Expiration Date Visits Re quested Visits Authorized [id number] 1 1 Encounter Details Date Type Department Care Team (Late st Contact Info) Description 04/01/2018 1:00 PM EDT - 04/01/2018 4:00 PM EDT Surgery [place] [address] Noemi Hudson MD [facility] [place] [address] @TOTAL HIP REVISION ARTHROPLASTY, COMPLETE (WRVU 30.28) Social History Tobacco Use Types Packs/Day Years [...] Sign Reading Time Taken Comments Blood Pressure 152/72 04/01/2018 12:04 PM EDT Pulse 68 04/01/2018 12:04 PM EDT Temperature 37.3 ??C (99.1 ??F) 04/01/2018 12:04 PM E DT Respiratory Rate 16 04/01/2018 12:04 PM EDT Oxygen Saturation 98% 04/01/2018 12:04 PM EDT Inhaled Oxygen Concentration - - Weight 80.1 kg (176 lb 9.4 oz) 04/01/2018 12:04 PM EDT Height 157 cm (5' 1.81) 04/01/2018 12:04 PM EDT Body Mass Index 32.5 04/01/2018 12:04 PM EDT documented in this encounter Discharge Summaries * Lindsey Rice P, CUSTOMER RETENTION REPRESENTATIVE - 04/01/2018 9:42 AM EDT Discharge Summary [facility] Age: 72 y.o. Language: Uzbek Race: White Ethnicity: Not nor Admit date: 04/01/2018 Discharge date and time: 04/02/2018 Attending Physician: Noemi Hudson MD Discharge Physician: Noemi Hudson MD Follow-up Recommendations for Providers: See discharge instructions for additional details. Future Appointments Date Time Provider Department Center 04/30/2018 3:00 PM [facility] DX ROOM 6 Xray [facility] 04/30/2018 4:00 PM Noemi Hudson MD [facility] Inpatient Provider Contact Information: Noemi Hudson MD Orthopedics: [phone] After hours and weekends, call [facility] Graphics, , and have the Orthopedic resident paged. [...] Weight: Wt Readings from Last 1 Encounters: /17/18 80.1 kg (176 lb 9.4 oz) Height: Ht Readings from Last 1 Encounters: /17/18 157 cm (5' 1.81) HC: HC Readings [...] bowel movement. You can also take an szps-qzq-jgxjyja medication, Miralax if needed to combat constipation. [...] as much as possible. Call your doctor ([phone]) if you develop: 1. Fever greater than 100.5 2. Severe nausea or vomiting 3. Increasing pain that is not controlled by pain medications 4. Increasing redness, swelling, or drainage from incisions 5. Change in sensation FOLLOW-UP APPOINTMENTS: 1. You will have follow-up appointments at [facility] as indicated below in Future Appointment and Orders. 2. You will need to have x-rays prior to your follow-up appointment on 04/30/2018. Please come to Radiology, desk 3T, 1 hour BEFORE that appointment for these x-rays. Future Appointments Date Time Provider Department Center 04/30/2018 3:00 PM [facility] DX ROOM 6 Xray [facility] Rad Clin 04/30/2018 4:00 PM Noemi Hudson MD [facility] [address] [place] [address] If you have questions or concerns: Sunday through Sunday, 8 AM - 5 PM, please call Noemi Tristan MD's office at . If it is after 5 PM, the weekend, or holidays, please call and ask to speak with theOrthopedic resident on-call. General Instructions None Future Appointments and Orders Future Appointments Provider Department Dept Phone 04/30/2018 3:00 PM [facility] DX ROOM 6 XRay at [place] [phone] Please go to C D Still Operator Area 3T ([place] Location). 04/30/2018 4:00 PM Noemi Hudson MD Orthopaedics at [place] [phone] Future Orders Complete By Expires Referral to Home Health - at DISCHARGE [[id number] CPT(R)] As directed Process Instructions: Scheduling Instructions: Comments: DOCUMENTATION FOR VNA SERVICES (INCLUDING THOSE PATIENTS WITH MEDICARE COVERAGE REQUIRING HOME VNA SERVICES AND/OR HOSPICE SERVICES) Alyssa Burnham Discharge to own home: [id number] [facility] [address] Mobile Not on file. Sharepoint Application Developer's Name: herself with neighbors' assist In discussion with the attending physician, it is certified that this patient is under their care and that they, or a nurse practitioner, clinical nurse specialist or physician's surgical supply assistant who is working directly with them, [...] for services as follows: Home Health Agency: [facility], [place], Operated [facility] [employer]. PHONE: [phone] FAX: [phone] Home care orders for Revision Total Hip [...] PT services only then please refer for Mcc(SN) eval if indicated on admission visit Hip [...] discharge contact info: Primary Care Provider: Baylee ElenaNIKKI [phone] Discharge References/Attachments None documented in this encounter Discharge Instructions * Patient Instructions* Lindsey Rice, NIKKI - 04/01/2018 9:46 AM EDT Activity: 1. [...] bowel movement. You can also take an yorm-eww-gqkecox medication, Miralax if needed to combat constipation. [...] as much as possible. Call your doctor ([phone]) if you develop: 1. Fever greater than 100.5 2. Severe nausea or vomiting 3. Increasing pain that is not controlled by pain medications 4. Increasing redness, swelling, or drainage from incisions 5. Change in sensation FOLLOW-UP APPOINTMENTS: 1. You will have follow-up appointments at [facility] as indicated below in Future Appointment and Orders. 2. You will need to have x-rays prior to your follow-up appointment on 04/30/2018. Please come to Radiology, desk , 1 hour BEFORE that appointment for these x-rays. Future Appointments Date Time Provider Department Center 04/30/2018 3:00 PM [facility] DX ROOM 6 Xray [facility] 04/30/2018 4:00 PM Noemi Hudson MD [facility] If you have questions or concerns: Sunday through Sunday, 8 AM - 5 PM, please call Noemi Trisatn MD's office at . If it is after 5 PM, the weekend, or holidays, please call and [facility]. documented in this encounter Medications [...] Time Provider Department Center 04/30/2018 3:00 PM [facility] DX ROOM 6 [facility] 04/30/2018 4:00 PM Noemi Hudson MD [facility] Associated attestation - Noemi Hudson MD - 04/02/2018 8:26 AM EDT I independently evaluated and saw the patient, and I agree with the above note. Noemi Hudson MD * Cristhian Martel RN - 04/01/2018 6:47 PM EDT [facility] from PACU s/p R hip revision. Patient AOx 4, HR 62, lung sounds course bilaterally, lbm 9/16, levine draining urine. +csmt to all extremities. [...] Alyssa Burnham is a 72 y.o. female Day of [...] Time Provider Department Center 04/30/2018 3:00 PM [facility] DX ROOM 6 [facility] [...] APPROACH performed by Lance Holland MD at [facility] MAIN OR Home Medications: Facility-Administered Medications Prior [...] 30.28) [facility]?? PRO TOTAL HIP ARTHROPLASTY 02/04/2014 @TOTAL HIP ARTHROPLASTY, ANTERIOR APPROACH performed by Lance Holland MD at [facility] MAIN OR Social History: Patient is a and lives alone in [place], [place] w/ 2 separate platform steps to [...] precs. Understands reason and importanceof using leg cloth tester to assist abd during supine>sit Skin and soft Tissue: silver mepilex dressing R posterolateral hip CDI Functional Mobility: Supine><sit: out toward R side of flat bed, back in same side, using leg cloth tester to self assist Sit><stand: w/ FWW w/ [...] and home management ARIELLA MCELROY, PT Pager: [phone] PT Evaluation Code Rationale: ?? Diagnosis & [...] Z96.641 ??? 02/04/2014 Dr. Holland Left Anterior AMBRE M16.12 ??? 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 [facility] AM-PAC 6 Clicks/stairs Basic Mobility Inpatient Short Form [...] flowsheet data listed below for details. Alyssa Hanna Immanuel Clay presents with the following performance skill [...] with assist, home with home health Pager: [phone] Reed Kilpatrick OT 04/02/2018 Occupational Therapy Rehabilitation [...] Living Environment Comment Pt lives alone in [place], [place]. There are 2 ASHLEY into 1 level where pt plans to sleep in a flat bed, has a raised toilet, walk-in shower w/ a ASHLEY, grab bars, and a shower bench. 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 Self-Care Dominant Hand right Vision Assessment/Intervention Additional [...] Mobility Assessment/Treatment Assistive Device (Bed Mobility) leg cloth tester Yhlfdg-ay-Gey [place] (Bed Mobility) supervision required;verbal cues required;nonverbal cues required (demo/gesture) Impairments (Bed Mobility) pain;ROM (range of motion) decreased;strength decreased;balance impaired Comment (Bed Mobility) Pt performed bed mobility w/ increased time and verbal cues for technique. flat bed Transfer Assessment/Treatment Bed-Chair [place] (Transfers) supervision required;verbal cues required Chair-Bed [place] (Transfers) supervision required;verbal cues required Jhd-Hutlf-Uwi Assistive Device (Transfers) rolling walker [place] (Sit-Stand Transfers) supervision required;verbal cues required [place] (Stand-Sit Transfers) supervision required;verbal cues required Rst-Nakcc-Hif Assistive Device (Transfers) rolling walker [place] (Toilet Transfers) supervision required;verbal cues required Assistive Device (Toilet Transfers) bedside commode;rolling walker Maintain Weight Bearing Status (Transfers) able to maintain weight bearing status Impairments (Transfers) pain;ROM (range of motion) decreased;strength decreased;balance impaired Comment (Transfers) Pt performed sit<>stand w/ no overt LOB. Pt requried verbal cues to kick RLE out prior to sit<>stand initially, pt performing indepdently by end of session. Gait Assessment/Treatment [place] (Gait) supervision required Assistive Device (Gait) rolling [...] understanding, taught backtechnique. Upper Body Dressing Assessment/Training [place] Level (UB Dressing) set up required;independent Lower Body Dressing Assessment/Training Assistive Devices (LB Dressing) sock-aid;maintenance of way clerk Position (LB Dressing) sitting;standing [place] Level (LB Dressing) supervision required;verbal cues required Impairments (LB Dressing) pain;ROM (range of motion) decreased;strength decreased;balance impaired Comment (LB Dressing) Pt required increased time and verbal cuse to perform LB dressing w/ AE. Pt issued and educated sock-aid and maintenance of way clerk. Toileting Assessment/Training Assistive Devices (Toileting) bedside commode Position (Toileting) sitting;standing [place] Level (Toileting) conditional independence Impairments (Toileting) pain;ROM [...] Operative Note Patient Name: Alyssa Burnham : [id number] MR#: [id number] Case Date: 04/01/2018 Surgeon: Surgeon(s) and Role: [...] Hudson MD - 04/01/2018 3:42 PM EDT [facility] Operative Note Patient Name: Alyssa Burnham : [id number] MR#: [id number] Case Date: 04/01/2018 Surgeon: Surgeon(s) and Role: * Noemi Hudson MD - Primary * Sarah Mascorro MD - Resident-Surgeon Jad Preoperative Diagnosis: Mechanical failure of right hip replacement Postoperative Diagnosis: Same Procedure Performed: right Total Hip Arthroplasty Revision (CPT code 83737) Anesthesia: Spinal/Epidural IVF: 1100ml of crystaloid Estimated [...] and found to be stable. Clinically leg lentahminats felt symmetric. Satisfied, the trialhead was then [...] Implant Name Type Inv. Item Serial No. Technical Proposal Writer Lot No. LRB No. Used Action INSER,ALTRX,10D,+[id number] ([id number]) (AUTOREQ) - [id number] IMPLANTS INSER,ALTRX,10D,+[id number] ([id number]) (AUTOREQ) 1stdibs HEMANTH [id number] Right 1 Implanted HEAD,FEM,S-ROM,ALUMA,32+0 ([id number]) - [id number] IMPLANTS HEAD,FEM,S- ROM,ALUMA,32+0 ([id number]) 1stdibs HEMANTH [id number] Right 1 Implanted documented in this encounter Plan of Treatment Upcoming Encounters Date Type Department Care Team (Late st Contact Info) Description 02/26/2024 10:15 AM EDT Office Visit [facility] [place] [address] Cornell Harper [place] [address] documented as of this encounter Procedures Procedure [...] 3:13 AM EDT) Neutrophils % 90.7 % [facility] Neutr Abs (ANC) 7.83(H) 1.70 - 6.10 x10(3)/mc L [facility] Lymphocytes % 5.3 % [facility] Lymphocytes Abs 0.5(L) 0.9 - 3.2 x10(3)/mc L [facility] Monocytes % 3.6 % [facility] Monocyte Abs 0.3 0.3 - 0.9 x10(3)/mc L [facility] Eosinophils % 0.0 % [facility] Eosinophils Abs 0.0 0.0 - 0.4 x10(3)/[facility] Basophils % 0.2 % [facility] Basophils Abs 0.0 0.0 - 0.1 x10(3)/[facility] Immature Gran % 0.20 % [facility] Comment: Immature granulocytes(IG's)percentage and absolute count will include metamyelocytes, myelocytes, and promyelocytes. Blood smears from CBCs yielding IG's will be scanned manually for concordance. If this scan disagrees with the automated IG or if promyelocytes are noted, a manual differential will be performed. Fay Gran Abs 0.02 0.00 - 0.04 x10(3)/[facility] Blood specimen (specimen) 04/02/2018 3:13 AM EDT 04/02/2018 3:46 AM EDT Narrative Resulting Agency Comment Spec In Lab Sarah Mascorro MD HEMATOLOGY ORDERABLE S [facility] [place] [address] * (ABNORMAL) Hemogram (04/02/2018 3:13 AM EDT) WBC 8.6 4.0 - 9.5 x10(3)/[facility] RBC 4.10 4.00 - 5.21 x10(6)/[facility] Hemoglobin 11.9 11.7 - 15.5 gm/dL [facility] Hematocrit 35.6(L) 35.7 - 45.8 % [facility] MCV 86.8 82.6 - 94.4 fL [facility] MCH 29.0 27.1 - 32.0 pg [facility] MCHC 33.4 31.7 - 35.0 gm/dL [facility] Platelets 203 145 - 357 x10(3)/[facility] RDWSD 42.4 37.0 - 46.0 [facility] RDWCV 13.2 11.5 - 14.1 % [facility] MPV 9.4 7.6 - 12.9 [facility] nRBC % Auto 0.0 % [facility] nRBC Abs Auto 0.000 0.000 - 0.000 x10(3)/[facility] Blood specimen (specimen) 04/02/2018 3:13 AM EDT 04/02/2018 3:46 AM EDT Narrative Resulting Agency Comment Spec In Lab Sarah Mascorro MD HEMATOLOGY ORDERABLE S [facility] [place] [address] * (ABNORMAL) Basic Metabolic Panel (non-fasting) (04/02/2018 3:13 AM EDT) Glucose Lvl 157 65 - 199 mg/dL [facility] Comment:Diabetes: >=200 mg/d L plus symptoms BUN 15 8 - 18 mg/dL [facility] Creatinine 0.90 0.70 - 1.20 mg/dL [facility] Sodium 141 135 - 145 mmol/L [facility] Potassium 4.2 3.5 - 5.0 mmol/L [facility] Comment: Please note: ??Patients with WBC >100,000 may have falsely elevated Potassium levels. ??For accurate Potassium quantification in these patients send serum separator tube (gold top) for subsequent determinations. ??Contact the Clinical Chemistry Laboratory if there are any questions. Chloride 105 98 - 107 mmol/L [facility] CO2 21(L) 22 - 31 mmol/L [facility] Anion Gap 15 5 - 15 mmol/L [facility] Calcium 8.8 8.5 - 10.5 mg/dL [facility] Estimated GFR 65 >=60 mL/min/1. 73 m?? [facility] Comment: The eGFR was calculated using the CKD-EPI equation. As with all creatinine based estimates of kidney function, eGFR values calculated with the CKD-EPI equation are not accurate in patients with acute kidney failure, extremes of body mass or the acutely ill. [email or web address] eGFR 75 >=60 mL/min/1. 73 m?? [facility] Comment: The eGFR was calculated using the CKD-EPI equation. As with all creatinine based estimates of kidney function, eGFR values calculated with the CKD-EPI equation are not accurate in patients with acute kidney failure, extremes of body mass or the acutely ill. [email or web address] Blood specimen (specimen) 04/02/2018 3:13 AM EDT 04/02/2018 3:46 AM EDT Narrative Resulting Agency Comment Spec In Lab Noemi Hudson MD CHEMISTRY ORDERABLE S Performing Organization Address City/State/[facility] Co de Phone Number [facility] [place] [phone] * XR Pelvis (Generic) (04/01/2018 4:49 PM [...] hip. Procedure Note Lynn Jolly MD - 04/01/2018 EXAMINATION: XR PELVIS (GENERIC) CLINICAL HISTORY: s/p right AMBER revision TECHNIQUE: Portable AP supine radiograph of the pelvis from 04/01/2018 [id number] hours. COMPARISON: 03/28/2018. FINDINGS: Revision right hip arthroplasty hardware appears well-seated.No immediate postoperative complication such as periprosthetic fractureseen. Unchanged appearance of the bony pelvic ring and the post arthroplasty appearance of the left hip. IMPRESSION No immediate right hip revision arthroplasty complication identified. Noemi Hudson MD IMG DX ORDERABLES * Anaerobic Culture (04/01/2018 3:05 PM EDT) Anaerobic Culture No anaerobic organisms isolated [facility] Joint specimen (specimen) RIGHT HIP REGION STRUCTURE / Unknown 04/01/2018 3:05 PM EDT 04/01/2018 4:07 PM EDT Comment:RIGHT HIP CAPSULE. Narrative Resulting Agency Comment Spec In Lab Noemi Hudson MD MICROBIOLOGY - GENE RAL ORDERABLES Performing Organization Address [facility] Co de Phone Number [facility] [place] [address] * Joint Culture (04/01/2018 3:05 PM EDT) Joint Culture No growth [facility] Gram Stain No Neutrophils seen. No microorganisms seen. [facility] Joint specimen (specimen) RIGHT HIP REGION STRUCTURE / Unknown 04/01/2018 3:05 PM EDT 04/01/2018 4:07 PM EDT Comment:RIGHT HIP CAPSULE. Narrative Resulting Agency Comment Spec In Lab Noemi Hudson MD MICROBIOLOGY - GENE RAL ORDERABLES Performing Organization Address City/[facility]/ZIP Co de Phone Number [facility] [place] [address] * Anaerobic Culture (04/01/2018 2:20 PM EDT) Anaerobic Culture No anaerobic organisms isolated [facility] Joint fluid specimen (specimen) RIGHT HIP REGION STRUCTURE / Unknown 04/01/2018 2:20 PM EDT 04/01/2018 2:48 PM EDT Comment:RIGHT HIP FLUID. Narrative Resulting Agency Comment Spec In Lab Noemi Hudson MD MICROBIOLOGY - GENE RAL ORDERABLES Performing Organization Address [facility] Co de Phone Number [facility] [place] [address] * Joint Culture (04/01/2018 2:20 PM EDT) Joint Culture No growth at 14 days. [facility] Gram Stain Cytocentrifuge Gram Stain performed Neutrophils seen No microorganisms seen. [facility] Joint fluid specimen (specimen) RIGHT HIP REGION STRUCTURE / Unknown 04/01/2018 2:20 PM EDT 04/01/2018 2:48 PM EDT Comment:RIGHT HIP FLUID. Narrative Resulting Agency Comment Spec In Lab Noemi Hudson MD MICROBIOLOGY - GENE RAL ORDERABLES Performing Organization Address [facility] Co de Phone Number [facility] [place] [address] * Cell Count Body Fluid Hip, Right (04/01/2018 2:20 PM EDT) Spec Type BF Hip, Right [facility] Color BF Brown [facility] Appearance BF Cloudy [facility] WBC BF Ct 787 /[facility] Comment: Guideline listed below apply to [...] by Miryam Holm. Polymorph % 27 % [facility] Comment: Polymorphonuclear cell percent and absolute values may contain Neutrophils, Eosinophils, and Basophils. Body fluid smear will be scanned manually for concordance. Mononuc % 73 % [facility] Comment: Mononuclear cell percent and absolute values may contain Lymphocytes and Monocytes. Body fluid smear will be scanned manually for concordance. Polymorph BF ABS 209 /[facility] Comment: Polymorphonuclear cell percent and absolute values may contain Neutrophils, Eosinophils, and Basophils. Body fluid smear will be scanned manually for concordance. Mononuc ABS 578 /[facility] Comment: Mononuclear cell percent and absolute values may contain Lymphocytes and Monocytes. Body fluid smear will be scanned manually for concordance. Swab from hip region (specimen) 04/01/2018 2:20 PM EDT 04/01/2018 2:36 PM EDT Narrative Resulting Agency Comment Spec In Lab Noemi Hudson MD BODY FLUIDS AND STO OLS ORDERABLES [facility] [place] [address] documented in this encounter Visit Diagnoses Diagnosis 04/01/2018 S/P revision of right total hip (Dr. 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, initial encounter documented in this encounter Admitting Diagnoses Diagnosis [...] Given 04/01/2018 8:24 PM EDT 1,000 mg atorvastatin (LIPITOR) tablet 40 mg 40 mg, Oral, DAILY, First dose on Sun04/02/18 at 0900, Until Discontinued, Routine Given 04/02/2018 9:01 AM EDT 40 mg celecoxib (CeleBREX) capsule 200 mg 200 mg, Oral, 2 TIMES DAILY, First dose on Sun04/01/18 at 2100, Until Discontinued, Routine Given 04/02/2018 9:00 AM EDT 200 mg Given 04/01/2018 8:25 PM EDT 200 mg gabapentin (NEURONTIN) capsule 300 mg 300 mg, Oral, NIGHTLY, First dose on Sun04/03/18 at 2100, Until Discontinued, Routine gabapentin (NEURONTIN) capsule 600 mg 600 mg, Oral, NIGHTLY, 2 doses, First dose on Sun04/01/18 at 2100, Last dose on Sun04/02/18 at 2100, Routine Given 04/01/2018 8:24 PM EDT 600 mg HYDROmorphone (DILAUDID) tablet 2-6 mg 2-6 [...] Given 04/02/2018 9:02 AM EDT 17 g povidone-iodine 5 % ophthalmic solution ONCE PRN, Starting on Sun04/01/18 at 1317, Until Sun04/02/18 at 1937, Intra-Operative (Intra-Procedure), Routine Given 04/01/2018 1:17 PM EDT 30 mLs 19- Surgical Site senna-docusate (PERICOLACE) 8.6-50 mg per tablet 2 [...] on Sun04/02/18 at 0900, Until Discontinued, Routine 09 (Given - Provid er: Hima Reinoso RN) [...] Unit), Indication for (Active or Suspected): Prophylaxis 1805 (New Bag - Provider: Nancy Persaud RN)1835 (Stopped - Provider: Alex Meehan RN) 0023 (New Bag - Provider: Alex Meehan RN)0053 (Stopped - Provider: Alex Meehan RN)0902 (New Bag - Provider: Hima Reinoso RN)0932 (Stopped - Provider: Beatriz Asencio RN) ceFAZolin [...] Meehan RN) 0859 (Given - Provider: Hima Reinoso RN) gabapentin (NEURONTIN) capsule 300 mg(Linked Group 1) [...] Patient/family refused) 09 (Given - Provider: Hima Reinsoo, DALILA) senna-docusate (PERICOLACE) 8.6-50 mg per tablet 2 tablet 2 tablet, Oral, 2 TIMES DAILY, First dose on Sun04/01/18 at 2100, Until Discontinued, Routine 2100 (Not Given - Provider: Alex Meehan RN - Reason: Patient/family refused) 0900 (Given - Provider: Hima Reinoso, DALILA) sertraline (ZOLOFT) tablet 50 mg 50 mg, Oral, DAILY, First dose on Sun04/01/18 at 1930, Until Discontinued 2100 (Not Given - Provider: Alex Meehan RN - Reason: Patient/family refused) 09 (Given - Provider: Hima Reinoso, DALILA) sodium [...] Sun04/01/18 at 1843, Until Sun04/02/18 at 1937, Wheezing, Shortness of Breath, Routine bisacodyl (DULCOLAX) [...] at 1843, Until Sun04/02/18 at 1937, Constipation, Administer if needed per patient's routine [...] RN) 1138 (Given - Provider: Hima Reinoso, RN)1701 (Given - Provider: Hima Reinoso, RN) ketorolac (TORADOL) injection 15 mg 15 mg, Intravenous, EVERY 6 HOURS PRN, Starting on Sun04/01/18 at 1620, Until Sun04/02/18 at 1937, Pain, Routine lactulose (CHRONULAC) 20 gram/30 mL oral solution 20-40 g 20-40 g (30-60 mL), Oral, DAILY PRN, Starting on Sun04/01/18 at 1843, Until Sun04/02/18 at 1937, Constipation, Administer if needed per patient's routine [...] Unit) documented in this encounter Care Teams Motorcyles Final Inspector Relationship Specialty Start Date End Date Baylee Elena, NIKKI PCP - General Family Medicine 03/25/18 03/01/22 documented as of this encounter
--- OUTSIDE RECORDS SUMMARY | 2024-01-25 00:28 | XMS_ITS | Encounter Summary ---
[place] [address] Care Team Providers Care Office Administrative Assistant Name Role Phone Jamarcus Rodriguez MD Primary Care Provider Reason for Visit * Reason Comments Left Hip Pain 02/04/2014 L THR ant eriot Encounter Details Date Type Department Care Team (Late st Contact Info) Description 05/06/2014 9:00 AM EDT Office Visit [place] [id number] Betty Dong APRN [facility] [place] [address] 02/04 Dr. Holland Left Anterior AMBER (Primary Dx) Discharge Disposition: Home Social History Tobacco Use [...] Sign Reading Time Taken Comments Blood Pressure 143/75 05/06/2014 9:39 AM EDT Pulse 76 05/06/2014 9:39 AM EDT Temperature - - Respiratory Rate - - Oxygen Saturation - - Inhaled Oxygen Concentration - - Weight 68 kg (150 lb) 05/06/2014 9:39 AM EDT Height 157.5 cm (5' 2) 05/06/2014 9:39 AM EDT Body Mass Index 27.44 05/06/2014 9:39 AM EDT documented in this encounter Progress Notes * Betty Dong, COLOR GRINDER - 05/06/2014 9:45 AM EDT Subjective: Chief Complaint: Second planned post op for left hip AMBER Pertinent Surgical History: Date: February 04, 2014 Surgeon: Lance Holland MD Sales Service Promoter: Pre-operative diagnosis: Left hip osteoarthritis Surgical Procedure Performed: Injection left hip with 10 cc marcaine 0.25% with epi, into skin and subcutaneous tissues Left total hip arthroplasty, anterior Hueter approach with Junction table Left hip intraoperative radiologic examination Components Used: Depuy Corail stem, size 11, standard Orland cup, 50 mm, solid 32 mm ID, neutral poly 32+5 mm CoCr head Bearing surface: metal on poly HPI: Alyssa BlandObed is 68 y.o. and is now 12 weeks post left total hip arthroplasty. Pain iscontrolled with current analgesics. Medication(s) being used: over the counter tylenol prn. The patient denies fever, wound drainage, increasing redness, pus, increasing pain, increasing swelling. Post op problems reported: None. She is ambulating unassisted. No interval falls, Injuries or infections. Today she mentions that there is mild anterior thigh numbness noted that is resolving. She is getting ready to travel to [place] to care for her Parents. She is in good health otherwise. ROS: Denies fever, chills, nausea, vomiting, vision change, shortness of breath, chest pain, visionchanges, headaches, bowel or bladder problem, ear, nose, sinus problem, neuro or psychiatric, or endocrine disorder not addressed above. Problem list reviewed in [facility] Medication list reconciled in [facility] Allergies Allergen Reactions ??? Latex Rash ??? Iodine-Iodine Containing Rash ??? Perfume Oil Shortness Of Breath [...] pain ??? Sulfa (Sulfonamide Antibiotics) headache Family and Social History unchanged. Questionnaire Responses: myD-H Hip & Knee 04/22/2014 MODEMS Expectation - MODEMS Satisfaction 100 VR12 - Physical Component Summary 50.27 VR12 - Mental Component Summary 62.52 PROMIS-10 General Health Very Good PROMIS-10 Quality of Life Very Good PROMIS-10 Physical Health Good PROMIS-10 Mental Health Very Good PROMIS-10 Social Activity and Relationship Satisfaction Excellent PROMIS-10 Social Roles at Home and Work Very Good PROMIS-10 Everyday Physical Activities Completely PROMIS-10 Anxious or Depressed last 7 days Rarely PROMIS-10 Fatigue last 7 days Mild PROMIS-10 Pain last 7 days 1 PROMIS PHYSICAL HEALTH SCORE (range 16-68) 50.8 PROMIS MENTAL HEALTH SCORE (range 21-68) 56 Arthritis Ladder - Hip - Objective: Filed Vitals: 05/06/14 0939 BP: 143/75 Pulse: 76 Height: 157.5 cm (5' 2) Weight: 68.04 kg (150 lb) Body mass index is 27.43 kg/(m^2). General : alert, appears stated age, cooperative, no distress and well developed, well-nourished. Looks well. + comfortable. Non-toxic appearing. Chest: RR: 12. Non-labored. Gait: Non-antalgic No assistive devices Sutures: Sutures out. Incision: HEALED. Tenderness: none Flexion ROM: See below Extension ROM: full range of motion Abduction ROM: See below DVT Evaluation: No evidence of DVT seen on physical exam. Negative Carson's sign. No cords or calf tenderness. No significant calf/ankle edema. I have made the following determinations: Post Op Left Hip Exam: Wilkins Hip Score: Less than 30 degrees of fixed flexion: Yes Less than 10 degrees of fixed adduction: Yes Less than 10 degrees of fixed int rotation in extension: Yes Limb Length discrepancy: none Motion: Total degrees of Flexion: 105 Total degrees of Abduction: 25 Total degrees of Ext Rotation: 35 IR: 10 Total degrees of Adduction: 5 Gait Abnormality: Non-antalgic Pulses Palpable: Left PT: Yes Left DP: Yes Motor/Sensory: Left Distal Motor: Normal Distal Sensory: Normal full light touch sensation of the anterior thigh Hip Abductors: 4+/5 Imaging Not indicated Assessment: This is a 68 year old Female who is 12 weeks Status post left total hip arthroplasty. Doing well postoperatively. No complications noted. Plan: I reviewed my findings in the office today. Increase to full activity as pain and function allow. Activity precautions to prevent premature implant failure. Joint specific exercises. Physical Therapyfor post-operative rehabilitation and transition to a [facility] when she is ready. Full weight bearing. Cool packs prn. Acetaminophen prn no greater than 3 grams per day. Pt agrees, questions solicited/answered, will return as scheduled and as needed for concerns or questions. Pt understands they may also call us prn for above.. Follow up: 9 months. Left hip x-rays needed at that time + order in [facility]. Sooner prn. We discussed the appropriate precautions surrounding dental prophylaxis. I stressed that she shouldavoid elective dental procedures for the first 6 months after surgery and then call the office for a prescription prior to any further dental work for the lifetime of the joint replacement. We also discussed maintaining good foot care and giving prompt attention to any source of infection throughout the body including foot ulcers and urinary tract infections. documented in this encounter Plan of Treatment Upcoming Encounters Date Type Department Care Team (Late st Contact Info) Description 02/26/2024 10:15 AM EDT Office Visit Endocrinology at [facility] [place] [address] Cornell Harper MD [facility] [place] [address] documented as of this encounter Visit Diagnoses Diagnosis 02/04 Dr. Holland Left Anterior AMBER- Primary Primary localized osteoarthrosis, pelvic region and thigh documented in this encounter Care Teams Office Administrative Assistant Relationship Specialty Start Date End Date Jamarcus Rodriguez MD [address] [place] [address] PCP - General 06/07/10 03/24/18 documented as of this encounter
--- OUTSIDE RECORDS SUMMARY | 2024-01-25 00:28 | XMS_ITS | Encounter Summary ---
Author Organization [facility] [place] [address] Care Team Providers Care Beauty Sales Advisor Name Role Phone Baylee Elena APRN Primary Care Provider [phone] Reason for Referral * Physical Therapy (Routine) - Specialty Diagnoses / Procedures Referred By Calin vasquez Referred To Contact Physical Therapy Diagnoses S/P revision of total hip Noemi Hudson MD [facility] [place] [address] Referral ID Status Reason Start Date Expiration Date V isits Requested Visits Authorized [id number] Evaluate and Treat 05/01/2018 10/28/2018 20 20 Encounter Details Date Type Department Care Team (Late st Contact Info) Description 05/01/2018 [place] [address] Noemi Hudson MD [facility] [place] [address] 04/01/2018 S/P revision of right total hip [...] Endocrinology at [facility] [place] [address] Cornell Harper MD [facility] [place] [address] Scheduled Referrals Name Type Priority Associated Diagnoses Orde r Schedule Referral to Physical Therapy Outpatient Referral Routine 04/01/2018 S/P revision of right total hip (Dr. Hudson) Ordered: 05/01/2018 documented as of this encounter Visit Diagnoses Diagnosis 04/01/2018 S/P revision of right total hip (Dr. Hudson) Hip joint replacement by other means documented in this encounter Care Teams Beauty Sales Advisor Relationship Specialty Start Date End Date Baylee Elena APRN PCP - General Family Medicine 03/25/18 03/01/22 documented as of this encounter
--- OUTSIDE RECORDS SUMMARY | 2024-01-25 00:28 | XMS_ITS | Encounter Summary ---
Author Organization [facility] [place] [address] Care Team Providers Care Director Camp Name Role Phone Baylee Elena APRN Primary Care Provider [phone] Reason for Visit * Auth/Cert Specialty Diagnoses / Procedures Referred By Calin vasquez Referred To Contact Diagnoses Prosthetic hip implant failure, initial encounter Right AMBER mechanical failure Procedures PRO REVISE TOTAL HIP REPLACEMENT @TOTAL HIP REVISION ARTHROPLASTY, COMPLETE (WRVU 30.28) Referral ID Status Reason Start Date Expiration Date Visits Re quested Visits Authorized [id number] 1 1 Encounter Details Date Type Department Care Team (Late st Contact Info) Description 04/01/2018 1:05 PM EDT Anesthesia Event [place] [id number] Pedro Hoffman MD [facility] [address] Russell Winston MD [facility] [place] [address] Anesthesia Record Procedure Summary Procedure Name Responsible Anesthesiologist Anesthesia Start Time Anesthesia Stop Time @TOTAL HIP REVISION ARTHROPLASTY, COMPLETE (WRVU 30.28) (Right: Hip) Pedro Hoffman MD 04/01/18 1305 04/01/18 1612 Events Date Time Event Comment 04/01/2018 1228 1305 AN Verify 1305 Start 1305 An Start Data 1325 Spinal 1339 Anesthesia Ready 1512 Break/Relief In IVY RICE I GENDER STUDIES PROFESSOR 1525 Break/Relief Out 1604 an stop data 1610 Recovery or ICU Handoff Latonya ent care was transferred to the destination unit staff after review of the patient's medical history, current anesthetic/surgical status and plan, according to the Provider Handoff Checklist. 1612 Stop Meds Name Total Propofol INF 778.97 mg BUpivacaine 0.75% spinal 12 mg Tranexamic Acid 1,202 mg ceFAZolin (ANCEF) 2g in dextrose 5% 100 mL 2 g ePHEDrine 20 mg fentaNYL 25 mcg Lidocaine 1.5% with Epi 1:200K 2 mL PHENYLephrine INF 368 mcg Dexamethasone 8 mg Ondansetron 4 mg HYDROmorphone 0.2 mg Lactated Ringers 1,000 mL * Agents Name O2 Air N2O O2 Auxiliary Flowmeter 1 * Blood No blood administrations on file. Lines, Drains, and Airways Type Details Placement Removal Incision 02/04/14; 1303; hip; 04/01/18; 1525 02/04/14 1303 by Ryley Shankar RN 04/01/18 1525 by Nancy Persaud, DALILA (RETIRED) Peripheral IV Line - Single Lumen 04/01/18; 1254; metacarpal vein (top of hand), right; 22 gauge; asher RN; distraction, intradermal injection; 0; 04/02/18; 1639 04/01/18 1254 by Yolanda Guerrero RN 04/02/18 1639 by Hima Reinoso RN Urethral Catheter 04/01/18; 1340; Surg shira longer than 2 hours, Need for intraoperative urine output monitoring; Prolonged Immobilization, Physician order; indwelling double lumen catheter; hydrophilic coated; 14; inserted at this facility; 1; 5; 10; none; drainage bag to dependent drainage; 04/02/18; 0850 04/01/18 1340 by Leonela Faust RN 04/02/18 0850 by Lynn Smiley LNA Incision 04/01/18; 1408; hip; vertical; (Right hip revision arthroplasty by DR. Hudson. ); 03/13/22 (LDA cleanup utility RA#[id number]); 1715 (LDA cleanup utility RA#[id number]) 04/01/18 1408 by Leonela Faust RN 03/13/22 1715 by Rod Novak Epidural 04/01/18; 1601; alexandra figueroa; Jeremy Smith GENDER STUDIES PROFESSOR; no longer indicated; Catheter intact, No complications; Other (Comment) (Bandaid); 04/01/18; 1630 04/01/18 1601 by Jeremy Smith CRNA 04/01/18 1630 by Nancy Persaud RN documented in this encounter Social History Tobacco Use Types Packs/Day Years Used Date Smoking Tobacco: Former Cigarettes Smokeless Tobacco: Never Comments:in college Alcohol Use Standard Drinks/Week Comments No 0 (1 standard drink = 0.6 oz pur e alcohol) Sex and Gender Information Value Date Recorded Sex Assigned at Not on file Gender Identity Not on file Sexual Orientation Not on file documented as of this encounter OR Notes * Anesthesia Postprocedure Evaluation - Pedro Hoffman MD - 04/01/2018 4:14 PM EDT [facility] [place] Department of Anesthesiology Post-procedure Note Patient: Alyssa BlandAmi Procedure Summary Date Anesthesia Start Anesthesia Stop Room / Location 04/01/18 1305 1612 [facility] OR [facility] MA[facility] OR Procedure Diagnosis Surgeon Responsible Provider @TOTAL HIP REVISION ARTHROPLASTY, COMPLETE (WRVU 30.28) (Right Hip); MODIFIER PINNACLE ACETABULUM DEPUY (N/A Hip); MODIFIER S-ROM FEMORAL STEM DEPUY (N/A Hip) Prosthetic hip implant failure, initial encounter (Right AMBER mechanical failure) Noemi Hudson MD Chow, Vinca W, MD All Anesthesia Providers: Anesthesiologist: Pedro Hoffman MD GENDER STUDIES PROFESSOR: Jeremy Smith CRNA Most Recent Vitals: 04/01/18 1608 BP: 132/63 Pulse: 69 Resp: 16 Temp: 36.4 ??C (97.5 ??F) SpO2: 96% Pain Patient Location: PACU/[facility] Level of Consciousness: Awake and Alert Pain Management: Satisfactory Analgesia PONV: None Cardiovascular Status: At Baseline and Hemodynamically Stable Respiratory Status: At Baseline and Room Air Postoperative Fluid Status: Intravascular EUvolemia Possible Anesthetic Complications: NONE apparent at time of evaluation Final Primary Anesthesia Type: CSE (The anesthetic type performed was the same as planned.) Comments: Patient awake, alert, very comfortable, no pain, no nausea, vitals stable. Very satisfiedwith anesthesia care. Pedro Hoffman MD * Anesthesia Procedure Notes - Jeremy Smith CRNA - 04/01/2018 1:55 PM EDT Associated Order(s): ANE NEURAXIAL UPDATED Procedure: Neuraxial Block Primary Anesthetic Type: Spinal & Epidural The patient was greeted. The sedation plan, its benefits, risks and alternatives were discussed with the patient. The patient has consented to the procedure. The medical history and chart were reviewed. The timeout was performed. Start time: 04/01/2018 1:18 PM End time: 04/01/2018 1:35 PM Patient Location: Operating Room Patient Prep Position: Sitting Prep: Hand Hygiene, Hat, Mask, Sterile Gloves, Chlorhexidine and Patient Draped Injection technique: single-shot and continuous Skin Anesthetic Lidocaine 1% 3 ml Procedure Technique Level of needle insertion: L3-4 Needle approach: midline Needle Type: Jada Tinsley Needle insertion depth when KIMBERLY achieved: 7 cm Technique for Loss of Resistance: KIMBERLY saline A 21 guage epidural catheter introduced into the epidural space. Dressing/Secured with: Tegaderm Number of attempts: 1 Test dose Lidocaine 1.5% w/Epinephrine 1:2000,000 3mL Bolus medication Lidocaine 1.5% 2 ml Intrathecal Injection The patient received the following medication/s as an intrathecal injection: Bupivacaine 0.75% w dextrose 1.6 ml Fentanyl 25 mcg Events/Notes Events: None Resident/GENDER STUDIES PROFESSOR: JEREMY SMITH Second Resident/GENDER STUDIES PROFESSOR: Fellow: Attending Physician: ~~~~~~~~~~~~~~~~~~~~~~~~~~~~~~~~~~~~~~~~~~~~~~~~~~~~~~~~~~~~ * Anesthesia Preprocedure Evaluation - Pedro Hoffman MD - 04/01/2018 11:14 AM EDT Pre-Anesthesia Evaluation for: Alyssa Bland-Obed a 72 y.o. female. Procedure(s): @TOTAL HIP REVISION ARTHROPLASTY, COMPLETE (WRVU 30.28) MODIFIER PINNACLE ACETABULUM DEPUY MODIFIER S-ROM FEMORAL STEM DEPUY Patient Active Problem List Diagnosis ??? Prosthetic hip implant failure ??? Status post right hip replacement, Dr. Morales 2008 ??? 02/04/2014 Dr. Holland Left Anterior AMBER ??? CIS - Entered not Verified ??? CIS - Arthritis ??? CIS - GERD ??? CIS - HTN ??? CIS - hyperlipidemia ??? CIS - reactive airway disease Past Medical History: Diagnosis Date ??? Asthma [...] APPROACH performed by Lance Holland MD at [facility] MAIN OR Social History Substance Use Topics ??? Smoking status: Former Smoker Packs/day: 0.00 Years: 0.50 Types: Cigarettes ??? Smokeless tobacco: Never Used Comment: in college ??? Alcohol use No History Drug Use No Allergies Allergen Reactions ??? Latex Rash ??? [...] the pain ??? Sulfa (Sulfonamide Antibiotics) headache Medications: MAR and/or home medications have been reviewed. Physical Exam: There were no vitals filed for this visit. There is no height or weight on file to calculate BMI. Airway Assessment: Mallampati: I TM distance: >3 FB Neck ROM: full Cardiovascular Assessment: Pulmonary Assessment: Dental Assessment: Misc Assessment: Anesthesia Plan: ASA 3 regional, with a(n) intravenous induction Attending Assessment: Patient personally seen and examined. 72yo F with prior AMBER, presenting for right AMBER revision. Symptoms include R leg pain. PMH: HTN, asthma, GERD, HL No recent URI. Well-controlled GERD (asymptomatic in preop). +PONV, especially from opioids. Tolerates dilaudid well. No problems with anesthesia in the past. Spinal for AMBER, propofol gtt, no PONV Meds: reviewed Allergies: several, includes: PCN -rash only, tolerated Cefazolin without problem before EKG: reviewed NPO status adequate Significant labs: 03/28/18 1308 WBC 6.4 HGB 13.0 HCT 39.5 PLATELET 213 03/28/18 1308 PT 11.1 PTT 29 INR 1.0 03/28/18 1308 NA 141 K 4.0 CL 103 CO2 22 BUN 17 CREATININE 0.83 GLUCOSE 98 Plan: - pre-incision single shot spinal + epidural catheter placement due to potential extended duration for revision per discussion with surgical team. Neuraxial technique preferred given h/o PONV. Plan to bolus epidural with local anesthetic +/- opioid if spinal wears off, and regardless, to bolus withdilaudid at end of surgery for postoperative pain control with no motor block prior to removing epidural catheter at the end of the surgery. - standard ASA monitors, PIV - MAC vs GA with LMA - PCN allergy -rash only, tolerated Cefazolin without problem before The patient was informed of the risks, benefits and alternatives of anesthesia. These risks included, but were not limited to, post-operative nausea and/or vomiting, pain, sore throat, dental/lip injury, and other rare but serious complications such as cardiac instability/arrest, neurologic event, awareness, severe allergic reactions, position-related nerve injuries, and need blood transfusions. All questions sought and answered. Consent was signed and placed in chart. Pedro Hoffman MD 04/01/2018 Region - Other Informed Consent: Anesthetic plan and risks discussed with patient. Use of blood products discussed with patient who consented to blood products. Plan discussed with GENDER STUDIES PROFESSOR. PAT Staff Note documented in this encounter Plan of Treatment Upcoming Encounters Date Type Department Care Team (Late st Contact Info) Description 02/26/2024 10:15 AM EDT Office Visit Endocrinology at [facility] [place] [phone] Cornell Harper MD [facility] [place] [address] documented as of this encounter Procedures Procedure Name Priority Date/Time Associated Diagnosis Comments ANE NEURAXIAL UPDATED Routine 04/01/2018 2:05 PM EDT Procedure Note - Jeremy Smith CRNA - 04/01/2018 1:55 PM EDTThis note is in progress. Procedure: Neuraxial Block Primary Anesthetic Type: Spinal & Epidural The patient was greeted. The sedation plan, its benefits, risks andalternatives were discussed with the patient. The patient has consentedto the procedure. The medical history and chart were reviewed. Thetimeout was performed. Start time: 04/01/2018 1:18 PM End time: 04/01/2018 1:35 PM Patient Location: Operating Room Patient Prep Position: Sitting Prep: Hand Hygiene, Hat, Mask, Sterile Gloves, Chlorhexidine and PatientDraped Injection technique: single-shot and continuous Skin Anesthetic Lidocaine 1% 3 ml Procedure Technique Level of needle insertion: L3-4 Needle approach: midline Needle Type: Jada Tinsley Needle insertion depth when KIMBERLY achieved: 7 cm Technique for Loss of Resistance: KIMBERLY saline A 21 guage epidural catheter introduced into the epidural space. Dressing/Secured with: Tegaderm Number of attempts: 1 Test dose Lidocaine 1.5% w/Epinephrine 1:2000,000 3mL Bolus medication Lidocaine 1.5% 2 ml Intrathecal Injection The patient received the following medication/s as an intrathecalinjection: Bupivacaine 0.75% w dextrose 1.6 ml Fentanyl 25 mcg Events/Notes Events: None Resident/GENDER STUDIES PROFESSOR: JEREMY SMITH Second Resident/GENDER STUDIES PROFESSOR: Fellow: Attending Physician: ~~~~~~~~~~~~~~~~~~~~~~~~~~~~~~~~~~~~~~~~~~~~~~~~~~~~~~~~~~~~ documented in this encounter Visit Diagnoses Not on filedocumented in this encounter Administered Medications Inactive Administered Medications - up to 3 most recent administrations Medication Order MAR Action Action Date Dose Rate Site BUpivacaine 0.75% in dextrose 8.25% (intrathecal) (SENSORCAINE) 0.75 % (7.5 mg/mL) injection Intrathecal, PRN, Starting on Sun04/01/18 at 1325, Until Sun04/01/18 at 1613, Anesthesia Intra-op, Routine Given 04/01/2018 1:25 PM EDT 12 mg ceFAZolin (ANCEF) 2g in dextrose 5% 100 mL 2 g, Intravenous, EVERY 3 HOURS, 1 dose, First dose on Sun04/01/18 at 1230, Administer over 30 Minutes, Redose after 3 hours., Intra-Operative (Intra-Procedure), Indication for (Active or Suspected): Prophylaxis Given 04/01/2018 1:51 PM EDT 2 g dexamethasone (DECADRON) injection PRN, Starting on Sun04/01/18 at 1443, Until Sun04/01/18 at 1613, Anesthesia Intra-op, Routine Given 04/01/2018 2:43 PM EDT 8 mg ePHEDrine 5 mg/mL multi-dose injection PRN, Starting on Sun04/01/18 at 1347, Until Sun04/01/18 at 1613, Anesthesia Intra-op, Routine Given 04/01/2018 2:23 PM EDT 5 mg Given 04/01/2018 2:09 PM EDT 5 mg Given 04/01/2018 1:47 PM EDT 10 mg fentaNYL 50 mcg/mL multi-dose injection PRN, Starting on Sun04/01/18 at 1325, Until Sun04/01/18 at 1613, Pain, Anesthesia Intra-op, Routine Given 04/01/2018 1:25 PM EDT 25 mcg HYDROmorphone (DILAUDID) injection PRN, Starting on Sun04/01/18 at 1540, Until Sun04/01/18 at 1613, Pain, Anesthesia Intra-op, Routine Given 04/01/2018 3:40 PM EDT 0.2 mg lactated Ringers infusion CONTINUOUS PRN, Starting on Sun04/01/18 at 1305, Until Sun04/01/18 at 1613, Anesthesia Intra-op New Bag 04/01/2018 3:43 PM EDT New Bag 04/01/2018 1:05 PM EDT lidocaine-EPINEPHrine 1.5 %-1:200,000 injection PRN, Starting on Sun04/01/18 at 1329, Until Sun04/01/18 at 1613, Anesthesia Intra-op, Routine Given 04/01/2018 1:29 PM EDT 2 mLs ondansetron (ZOFRAN) injection PRN, Starting on Sun04/01/18 at 1443, Until Sun04/01/18 at 1613, Nausea, Anesthesia Intra-op, Routine Given 04/01/2018 2:43 PM EDT 4 mg PHENYLephrine (LIOR-SYNEPHRINE) 20 mg in sodium chloride 250 mL (standard ADULT & Pedi greater than 20kg) infusion CONTINUOUS PRN, Starting on Sun04/01/18 at 1429, Until Sun04/01/18 at 1613, Anesthesia Intra-op, Routine Restarted 04/01/2018 2:42 PM EDT 10 mcg/min 7.5 mL/hr Rate/Dose Change 04/01/2018 2:30 PM EDT 2 mcg/min 1.5 mL/ hr New Bag 04/01/2018 2:29 PM EDT 20 mcg/min 15 mL/hr propofol (DIPRIVAN) infusion Intravenous, CONTINUOUS PRN, Starting on Sun04/01/18 at 1335, Until Sun04/01/18 at 1613, Anesthesia Intra-op, Routine Rate/Dose Change 04/01/2018 3:22 PM EDT 50 mcg/kg/min 24 mL/hr Rate/Dose Change 04/01/2018 1:45 PM EDT 75 mcg/kg/min 36 m L/hr New Bag 04/01/2018 1:35 PM EDT 150 mcg/kg/min 72.1 mL/h r tranexamic acid (CYKLOKAPRON) 100 mg/mL bolus injection (Anesthesia) PRN, Starting on Sun04/01/18 at 1345, Until Sun04/01/18 at 1613, Anesthesia Intra-op, Routine Given 04/01/2018 1:45 PM EDT 1,202 mg documented in this encounter Care Teams Director Camp Relationship Specialty Start Date End Date Baylee Elena APRN PCP - General Family Medicine 03/25/18 03/01/22 documented as of this encounter
--- OUTSIDE RECORDS SUMMARY | 2024-01-25 00:28 | XMS_ITS | Encounter Summary ---
Author Organization [facility] [place] [address] Care Team Providers Care Resident Buyer Name Role Phone Ulices Baylee Mayorga APRN Primary Care Provider Reason for Visit * Reason Comments Follow-up Right hip pain incre ased Encounter Details Date Type Department Care Team (Late st Contact Info) Description 03/28/2018 10:30 AM EDT Office [place] [phone] Noemi Hudson MD [facility] [place] [address] Prosthetic hip implant failure, initial encounter; Pain of right lower extremity; Status post right hip replacement, Dr. Morales 2008 Social History Tobacco Use Types Packs/Day Years [...] Sign Reading Time Taken Comments Blood Pressure 165/93 03/28/2018 10:31 AM EDT Pulse 79 03/28/2018 10:31 AM EDT Temperature - - Respiratory Rate - - Oxygen Saturation - - Inhaled Oxygen Concentration - - Weight 80.1 kg (176 lb 8 oz) 03/28/2018 10:31 AM EDT Height 157 cm (5' 1.81) 03/28/2018 10:31 AM EDT Body Mass Index 32.48 03/28/2018 10:31 AM EDT documented in this encounter Progress Notes * Good Coreas PA - 03/28/2018 10:30 AM EDT Arthroplasty/Orthopaedic History: 1. Right AMBER Dr Morales 12-02-[address] Holland 02-12-14 HPI: Alyssa BlandObed is a very pleasant 72 y.o. year-old female and is now 9 years post right total hip replacement The patient has been doing well up until about 2 weeks ago when she developed pain in the right hip with grinding and squeeking. No fevers, chills, nausea, vomiting, or symptoms of infection. Alyssa has been ambulating with no assistive device. She is not taking narcotic pain medicine. ROS: Denies: fever, chills, night sweats, nausea, or vomiting BP (!) 165/93 (BP Location (NBP): Right arm, Patient Position: Sitting, BP Cuff Sizes: Adult (25-34cm)) Pulse 79 Ht 157 cm (5' 1.81) Wt 80.1 kg (176 lb 8 oz) BMI 32.48 kg/m2 Physical Exam: Well-appearing female in no acute distress. Alert and Oriented x 3 and answers all questions appropriately. Hip Exam: Right Leg length: Longer leg: left Limb Length discrepancy: 0.5cm Motion: Flexion contracture: 0 Total degrees of Flexion:90 Total degrees of Abduction:20 Total degrees of Ext Rotation: 25 Total degrees of Internal Rotation: 0 Gait Abnormality: Antalgic Pulses Palpable: Right PT: Yes Right DP:Yes Motor/Sensory: Right Distal Motor: Normal Distal Sensory: Normal Hip Abductors 5 Trendelenburg test: negative X-RAYS: Multiple radiographic views were obtained at my request and reviewed with the patient. X-rays show a well-placed prosthesis with poly failure and ceramic on metal. Questionnaire Responses: [facility] Surgical Postop Visit 03/27/2018 PROMIS-10 General Health Very Good PROMIS-10 Quality of Life Fair PROMIS-10 Physical Health Very Good PROMIS-10 Mental Health Very Good PROMIS-10 Social Activity Very Good PROMIS-10 Everyday Activities A little PROMIS-10 Pain 6 PROMIS-10 Fatigue Moderate PROMIS-10 Social Roles Fair PROMIS-10 Anxious or Depressed Sometimes PROMIS PHYSICAL HEALTH SCORE 39.8 PROMIS MENTAL HEALTH SCORE 45.8 HOOS JR Scores 43.34 Problems with surgical incision/wound after surgery No Gone to ER since knee surgery No Admitted to hospital since recent ortho surgery No Additional surgery on same body part No AMBER Grade 7 Pain in other HIP Mild Back pain at this moment Fairly severe Satisfaction with Treatment Somewhat dissatisfied Choose Same Treatment Again Probably no [facility] Response 03/27/2018 HOOS JR Scores 43.34 Spine [facility] Response 03/27/2018 HOOS JR Scores 43.34 ASSESSMENT/PLAN: Ms. Burnham is a 72 y.o. year old female status post right total hip replacement. Now with failed poly. All questions were answered. Signed: HUI ROSA 03/28/2018 * Noemi Hudson MD - 03/28/2018 10:30 AM EDT Ms. Burnham is a 72 y.o. year old female with Right hip pain. She has eccentric wear of her poly with squeaking of her ceramic ball on the metal cup. The patient is an appropriate candidate for consideration of revision Right hip arthroplasty. This recommendation is based on the patient???s pain, function, and bone stock. An extensive discussion was conducted of the natural history of this particular problem and the variety of surgical and non-surgical treatment options available to the patient. A risk/benefit analysis was discussed with the patient, reviewing the advantages and disadvantages of surgical intervention at this time. A full explanation was given of the nature and the purpose of the procedure and anesthesia, its benefits, possible alternative methods of diagnosis or treatment, the risks involved, the possibility of complications, the foreseeable consequences of the procedure(s) and the possible risks of non- treatment. No guarantee or assurance was made as the results that may be obtained. Specifically, the risks were identified, including but not limited to the following: infection, phlebitis, pulmonary embolism, , paralysis, dislocation, pain, stiffness, instability, limp, weakness, breakage, leg-length inequality, uncontrolled bleeding, nerve injury, blood vessel injury, pressure sores, anesthetic risks, delayed healing of wound and bone, and wear and loosening. Further discussion was undertaken with the patient about the details of surgical preparation, treatment and postoperative rehabilitation including medical clearance, the hospital course and the postoperative rehabilitation involved. Reimplantation may require cemented or cementless components, or both, depending upon a variety of factors thatmust be assessed at the time of surgery. The need for bone graft (either autograft or allograft) toenhance the chance for success of the procedure(s) was discussed. All in all, I feel that this patient is a good candidate for surgical reconstruction. Noemi Hudson MD documented in this encounter Plan of Treatment Upcoming Encounters Date Type Department Care Team (Late st Contact Info) Description 02/26/2024 10:15 AM EDT Office Visit Endocrinology at [facility] [place] [address] Cornell Harper MD [facility] [place] [address] Pending Results Name Type Priority Associated Diagnoses Date /Time EKG 12 Lead ECG Routine Prosthetic hip implant failure, initial encounter Pain of right lower extremity 03/28/2018 1:14 PM EDT documented as of this encounter Procedures Procedure Name Priority Date/Time Associated Diagnosis Comments TOTAL HIP REVISION ARTHROPLASTY, COMPLETE Routine 03/28/2018 12:14 PM EDT Prosthetic hip implant failure, initial encounter documented in this encounter Results * APTT (03/28/2018 1:08 PM EDT) PTT 29 25 - 37 sec [facility] Comment: The PTT is NOT appropriate for heparin monitoring. Use the Anti-Xa level for heparin monitoring (HEP UFH) or LMWH monitoring (HEP LMW). A PTT less than 37 seconds generally indicates adequate hemostasis. Blood specimen (specimen) 03/28/2018 1:08 PM EDT 03/28/2018 1:36 PM EDT Narrative Resulting Agency Comment Spec In Lab Noemi Hudson MD HEMATOLOGY ORDERABL ES Performing Organization Address [facility] de Phone Number [facility] [place] [address] * Prothrombin Time (03/28/2018 1:08 PM EDT) PT 11.1 9.4 - 12.5 sec [facility] INR 1.0 [facility] Comment: An INR <2.0 indicates [...] MD HEMATOLOGY ORDERABL ES Performing Organization Address [facility] de Phone Number [facility] [place] [address] * (ABNORMAL) Basic Metabolic Panel (non-fasting) (03/28/2018 1:08 PM EDT) Glucose Lvl 98 65 - 199 mg/dL [facility] Comment:Diabetes: >=200 mg/d L plus symptoms BUN 17 8 - 18 mg/dL [facility] Creatinine 0.83 0.70 - 1.20 mg/dL [facility] Sodium 141 135 - 145 mmol/L [facility] Potassium 4.0 3.5 - 5.0 mmol/L [facility] Comment: Please note: ??Patients with WBC >100,000 may have falsely elevated Potassium levels. ??For accurate Potassium quantification in these patients send serum separator tube (gold top) for subsequent determinations. ??Contact the Clinical Chemistry Laboratory if there are any questions. Chloride 103 98 - 107 mmol/L [facility] CO2 22 22 - 31 mmol/L [facility] Anion Gap 16(H) 5 - 15 mmol/L [facility] Calcium 9.4 8.5 - 10.5 mg/dL [facility] Estimated GFR 71 >=60 mL/min/1. 73 m?? [facility] Comment: The eGFR was calculated using the CKD-EPI equation. As with all creatinine based estimates of kidney function, eGFR values calculated with the CKD-EPI equation are not accurate in patients with acute kidney failure, extremes of body mass or the acutely ill. http://[employer]/[facility] eGFR 83 >=60 mL/min/1. 73 m?? [facility] Comment: The eGFR was calculated using the CKD-EPI equation. As with all creatinine based estimates of kidney function, eGFR values calculated with the CKD-EPI equation are not accurate in patients with acute kidney failure, extremes of body mass or the acutely ill. http://[employer]/[facility] Blood specimen (specimen) 03/28/2018 1:08 PM EDT 03/28/2018 1:36 PM EDT Narrative Resulting Agency Comment Spec In Lab Noemi Hudson MD CHEMISTRY ORDERABLE S [facility] [place] [address] documented in this encounter Visit Diagnoses Diagnosis Prosthetic hip implant failure, initial encounter Pain of right lower extremity Status post right hip replacement, Dr. Morales 2008 Hip joint replacement by other means documented in this encounter Care Teams Resident Buyer Relationship Specialty Start Date End Date Baylee Elena APRN PCP - General Family Medicine 03/25/18 03/01/22 documented as of this encounter
--- OUTSIDE RECORDS SUMMARY | 2024-01-25 00:28 | XMS_ITS | Encounter Summary ---
Author Organization [facility] Address [facility] [place] [address] Care Team Providers Care News Camera Person Name Role Phone Jamarcus Rodriguez MD Primary Care Provider [phone] Encounter Details Date Type Department Care Team (Latest Contact Info) Description 01/22/2015 10:37 AM EDT - 01/22/2015 11:59 PM EDT Hospital Encounter XRay at [address] [place] [phone] Aftercare following joint replacement Social History Tobacco [...] fluticasone (FLOVENT HFA) 220 mcg/Actuation inhaler 09/02/2010 polyethylene glycol (MIRALAX) 17 gram packet Take 17 g by mouth daily as needed. 0 02/06/2014 07/03/2018 senna-docusate (PERICOLACE) 8.6-50 mg per tablet Take 1-4 tablets by mouth 2 times daily. 60 tablet 2 02/06/2014 07/03/2018 lovastatin (MEVACOR) 40 mg tablet Take 80 mg by mouth nightly. 03/28/2018 cyanocobalamin 1,000 mcg tablet Take 1,000 mcg by mouth daily. 07/03/2018 documented as of this encounter Plan of Treatment Upcoming Encounters Date Type Department Care Team (Late st Contact Info) Description 02/26/2024 10:15 AM EDT [facility] [place] [address] Cornell Harper MD [facility] [place] [address] documented as of this encounter Procedures Procedure Name Priority Date/Time Associated Diagnosis Comments XR PELVIS AND HIP BILAT (GENERIC) Routine 01/22/2015 10:50 AM EDT documented in this encounter Results * XR Pelvis AP with Bilat Hips min 2 views each (01/22/2015 10:50 AM EDT) Anatomical Region Laterality Modality Pelvis, Hip Bilateral Radiographic Shantal ging 01/22/2015 10:5 0 AM EDT Impressions 01/22/2015 11:21 AM EDT IMPRESSION: Stable appearance, status post bilateral total hip replacements. No postop complications noted. Normal bony mineralization. Narrative 01/22/2015 11:21 AM EDT EXAMINATION: 1 VIEW PELVIS AND 1 VIEW EACH HIP CLINICAL HISTORY: L ANT AMBER 02/04/14 *R AMBER 2008; PT requested rt hip views as well*/MAS TECHNIQUE: AP pelvis and 2 views both hips frog leg lateral position COMPARISON: 03/11/2014 FINDINGS: The patient is status post bilateral noncemented hip prostheses. Minimal heterotopic bone present about RIGHT hip, which is stable. Bony mineralization appears normal. No sign of postop complication. Procedure Note Jamarcus Wilkins MD - 01/22/2015 EXAMINATION: 1 VIEW PELVIS AND 1 VIEW EACH HIP CLINICAL HISTORY: L ANT AMBER 02/04/14 *R AMBER 2008; PT requested rt hip viewsas well*/MAS TECHNIQUE: AP pelvis and 2 views both hips frog leg lateral position COMPARISON: 03/11/2014 FINDINGS: The patient is status post bilateral noncemented hipprostheses. Minimal heterotopic bone present about RIGHT hip, which is stable. Bony mineralization appears normal. No sign of postop complication. IMPRESSION IMPRESSION: Stable appearance, status post bilateral total hip replacements. Nopostop complications noted. Normal bony mineralization. Hemant Olivo MD IMG DX ORDERABLES documented in this encounter Visit Diagnoses Diagnosis Aftercare following joint replacement documented in this encounter Care Teams News Camera Person Relationship Specialty Start Date End Date Jamarcus Rodriguez MD [address] [place] [id number] PCP - General 06/07/10 03/24/18 documented as of this encounter
--- OUTSIDE RECORDS SUMMARY | 2024-01-25 00:28 | XMS_ITS | Encounter Summary ---
Author Organization [facility] Address [facility] [address] Care Team Providers Care Fashion Journalist Name Role Phone Ulices Baylee Mayorga APRN Primary Care Provider Reason for Visit * Reason Comments Follow Up Surgery right AMBER REV Encounter Details Date Type Department Care Team (Late st Contact Info) Description 07/18/2018 1:00 PM EST Office [place] [phone] Noemi Hudson MD [facility] [place] [address] Pain of right lower extremity Social History [...] Sign Reading Time Taken Comments Blood Pressure 135/55 07/18/2018 12:02 PM EST Pulse 72 07/18/2018 12:02 PM EST Temperature 37.3 ??C (99.2 ??F) 07/18/2018 1 2:02 PM EST Respiratory Rate - - Oxygen Saturation - - Inhaled Oxygen Concentration - - Weight 75.8 kg (167 lb) 07/18/2018 12:0 2 PM EST as of 06/25/18 Height 157.5 cm (5' 2.01) 07/18/2018 1 2:02 PM EST as of 07/03/18 Body Mass Index 30.54 07/18/2018 12:02 PM EST documented in this encounter Progress Notes * Noemi Husdon MD - 07/18/2018 1:00 PM EST Images from the original note were not included. Department of Orthopaedics Division of Adult Joint Reconstructive Surgery Progress Note CHIEF COMPLAINT: Interim evaluation s/p Right Revision Hip Replacement HPI: Alyssa Burnham is a 73 y.o. year old female being seen today in the clinic. The patientreturns today for evaluation after Right revision total hip replacement. She was bending down to put wood in her heater when she felt a pop in her hip that resulted in a dislocation. She went to the local ED where she underwent closed reduction. QUESTIONNAIRE RESPONSES: General Health, Prior Treatments, PreExisting Condition, Health Habits, About You 07/18/2018 PROMIS-10 General Health Very Good PROMIS-10 Quality of Life Good PROMIS-10 Physical Health Very Good PROMIS-10 Mental Health Very Good PROMIS-10 Social Activity Fair PROMIS-10 Everyday Activities Moderately PROMIS-10 Pain 2 PROMIS-10 Fatigue Moderate PROMIS-10 Social Roles Fair PROMIS-10 Anxious or Depressed Rarely PROMIS PHYSICAL SCORE (range 16-68) 44.9 PROMIS MENTAL SCORE (range 21-68) 45.8 HOOS JR Scores 55.99 AMBER Grade 6 Live Alone - Combined Household Income - # People Supported - [facility]ope[facility] Response 07/18/2018 HOOS JR Scores 55.99 Spine [facility] Response 07/18/2018 HOOS JR Scores 55.99 VITALS: BP Readings from Last 1 Encounters: 07/18/18 135/55 Pulse Readings from Last 1 Encounters: 07/18/18 72 Height: 157.5 cm (5' 2.01)(as of 07/03/18) Weight: 75.8 kg (167 lb)(as of 06/25/18) Body mass index is 30.54 kg/m??. PHYSICAL EXAM: The patient is alert, healthy looking, and is oriented to time, place, and person. The patient demonstrates good hip motion, stability, and strength bilaterally. IMAGING: X-rays of the Right hip were reviewed in the office and demonstrate satisfactory position and alignment of the components are present. No signs of loosening are seen. ASSESSMENT AND PLAN:Ms. Burnham is a 73 y.o. year old female s/p Right revision hip replacement. The patient was discussed about hip precautions. [place] going[place] move to her sister's while she continues recover. Follow-up is recommended to assess for the possibility of failure. I would like to see her back around her 1 year anniversary. Noemi Hudson MD documented in this encounter Plan of Treatment Upcoming Encounters Date Type Department Care Team (Late st Contact Info) Description 02/26/2024 10:15 AM EDT Office Visit Endocrinology at [facility] [place] [address] Cornell Harper MD [facility] [place] [address] documented as of this encounter Visit Diagnoses Diagnosis Pain of right lower extremity documented in this encounter Care Teams Fashion Journalist Relationship Specialty Start Date End Date Baylee Elena APRN PCP - General Family Medicine 03/25/18 03/01/22 documented as of this encounter
--- OUTSIDE RECORDS SUMMARY | 2024-01-25 00:28 | XMS_ITS | Encounter Summary ---
Author Organization [facility] [place] [address] Care Team Providers Care Reference Investigator Name Role Phone SamBaylee peterson Mukesh JORDAN Primary Care Provider [phone] Encounter Details Date Type Department Care Team (Late st Contact Info) Description 07/05/2018 4:05 PM EST Ancillary Procedure [place] [phone] Noemi Hudson MD [facility] [place] [address] Social History Tobacco Use Types Packs/Day Years [...] 10:15 AM EDT Office [place] [phone] Cornell Harper MD [facility] [place] [address] documented as of this encounter Procedures Procedure Name Priority Date/Time Associated Diagnosis Comments FILM LIBRARY STORAGE ONLY DX CHEST Routine 07/05/2018 4:04 PM EST documented in this encounter Results * Film Library- Storage Only DX Chest (07/05/2018 4:04 PM EST) Narrative RAD - 07/05/2018 4:04 PM EST This exam is for storage only and is auto-finalizing. Noemi ONEILL FILM LIBRARY OR DERABLES Performing Organization Address City/State/[facility] Co de Phone Number [place], [place] documented in this encounter Visit Diagnoses Not on filedocumented in this encounter Care Teams Reference Investigator Relationship Specialty Start Date End Date Baylee Elena, PIPING DESIGN SPECIALIST PCP - General Family Medicine 03/25/18 03/01/22 documented as of this encounter
--- OUTSIDE RECORDS SUMMARY | 2024-01-25 00:28 | XMS_ITS | Encounter Summary ---
Author Organization [facility] Address [facility] [place] [address] Care Team Providers Care Engineering Patternmaker Name Role Phone Ulices Baylee Mayorga APRN Primary Care Provider [phone] Encounter Details Date Type Department Care Team (Latest Contact Info) Description 03/28/2018 9:13 AM EDT - 03/28/2018 11:59 PM EDT Hospital Encounter XRay at [address] [place] [address] Noemi Hudson MD [facility] [place] [address] History of hip replacement, total, bilateral; Right hip pain Discharge Disposition: Home Social History Tobacco Use [...] weeks after surgery. 84 tablet 04/02/2018 07/03/2018 atorvastatin (LIPITOR) 40 mg Tablet Take 40 mg by mouth daily. 03/29/2018 cholecalciferol, Vitamin D3, 1,000 unit Tablet Take 1,000 Units by mouth daily. 07/03/2018 documented as of this encounter Plan of Treatment Upcoming Encounters Date Type Department Care Team (Late st Contact Info) Description 02/26/2024 10:15 AM EDT Office Visit Endocrinology at [facility] [place] [address] Cornell Harper MD [facility] [place] [address] documented as of this encounter Procedures Procedure Name Priority Date/Time Associated Diagnosis Comments XR PELVIS AND HIP 2 VIEWS BILATERAL Routine 03/28/2018 9:38 AM EDT History of hip replacement, total, bilateral Right hip pain documented in this encounter Results * XR Pelvis w AP & Lat Hip Bilat (03/28/2018 9:38 AM EDT) Anatomical Region Laterality Modality Pelvis, Hip Bilateral Digital Radiogra phy Impressions 03/28/2018 10:15 AM EDT Evidence of hardware failure with the wear of the polyethylene acetabular component at the right hip. Narrative 03/28/2018 10:15 AM EDT EXAMINATION: XR PELVIS W AP AND LAT HIP BILAT CLINICAL HISTORY: History of hip replacement, total, bilateral, Right hip pain TECHNIQUE: Frontal view of the pelvis and frontal and lateral views of each hip. COMPARISON: 01/22/2015 FINDINGS: Total bilateral hip arthroplasties are identified. Examination of the right hip demonstrate superior subluxation of the femoral head, secondary to wear of the polyethylene acetabular component of the right hip arthroplasty. This is new when compared to the prior exam. No acute fracture or dislocation is seen. The left hip arthroplasty appears unremarkable with no hardware failure or loosening. Procedure Note Sung Galvan MD - 03/28/2018 EXAMINATION: XR PELVIS W AP AND LAT HIP BILAT CLINICAL HISTORY: History of hip replacement, total, bilateral, Right hippain TECHNIQUE: Frontal view of the pelvis and frontal and lateral views ofeach hip. COMPARISON: 01/22/2015 FINDINGS: Total bilateral hip arthroplasties are identified. Examination of the right hip demonstrate superior subluxation of thefemoral head, secondary to wear of the polyethylene acetabular component of theright hip arthroplasty. This is new when compared to the prior exam. No acutefracture or dislocation is seen. The left hip arthroplasty appears unremarkable with no hardware failureor loosening. IMPRESSION Evidence of hardware failure with the wear of the polyethyleneacetabular component at the right hip. 10:15 AM Noemi Hudson MD IMG DX ORDERABLES documented in this encounter Visit Diagnoses Diagnosis History of hip replacement, total, bilateral Right hip pain Pain in joint, pelvic region and thigh documented in this encounter Care Teams Engineering Patternmaker Relationship Specialty Start Date End Date Baylee Elena APRN PCP - General Family Medicine 03/25/18 03/01/22 documented as of this encounter
--- OUTSIDE RECORDS SUMMARY | 2024-01-25 00:28 | XMS_ITS | Encounter Summary ---
[place] [address] Care Team Providers Care Fund Controller Name Role Phone Baylee Elena APRN Primary Care Provider [phone] Reason for Visit * Reason Onset Date Comments Pre Procedure Call 03/28/2018 Encounter Details Date Type Department Care Team (Late st Contact Info) Description 03/28/2018 Telephone [place] [phone] Noemi Hudson MD [facility] [place] [address] Pre Procedure Call Social History Tobacco Use Types Packs/Day Years [...] encounter Miscellaneous Notes * Telephone Encounter - Chey Langford - 03/28/2018 4:07 PM EDT I called and left a message for patient to call [phone] directly and schedule surgery with Dr. Hudson on 04/01/18. documented in this encounter Plan of Treatment Upcoming Encounters Date Type Department Care Team (Late st Contact Info) Description 02/26/2024 10:15 AM EDT Office Visit Endocrinology at [facility] [address] Cornell Harper MD [facility] [place] [address] documented as of this encounter Visit Diagnoses Not on filedocumented in this encounter Care Teams Fund Controller Relationship Specialty Start Date End Date Baylee Elena APRN PCP - General Family Medicine 03/25/18 03/01/22 documented as of this encounter
--- OUTSIDE RECORDS SUMMARY | 2024-01-25 00:28 | XMS_ITS | Encounter Summary ---
[place] [address] Care Team Providers Care Assistant Housekeeping Manager Name Role Phone Ulices Baylee Mayorga APRN Primary Care Provider [phone] Reason for Visit * Reason Comments Follow Up Surgery revision R AMBER Encounter Details Date Type Department Care Team (Late st Contact Info) Description 04/30/2018 4:00 PM EDT Office [place] [phone] Noemi Hudson MD [facility] [place] [address] Prosthetic hip implant failure, subsequent encounter Social History Tobacco Use Types Packs/Day [...] Sign Reading Time Taken Comments Blood Pressure 139/63 04/30/2018 4:12 PM EDT Pulse 64 04/30/2018 4:12 PM EDT Temperature 36.6 ??C (97.9 ??F) 04/30/2018 4:12 PM ED T Respiratory Rate - - Oxygen Saturation - - Inhaled Oxygen Concentration - - Weight - - Height - - Body Mass Index - - documented in this encounter Progress Notes * Noemi Hudson MD - 04/30/2018 4:00 PM EDT Images from the original note were not included. Department of Orthopaedics Division of Adult Joint Reconstructive Surgery Progress Note CHIEF COMPLAINT: Status-Post Right Hip Revision Replacement HPI: Alyssa Burnham is a 72 y.o. year old female being seen today in the clinic. The patientreturns today for initial routine evaluation after Right total hip revision replacement. Excellent progress is noted in terms of pain and yazidism of function. QUESTIONNAIRE RESPONSES: General Health, Prior Treatments, PreExisting Condition, Health Habits, About You 04/30/2018 PROMIS-10 General Health Very Good PROMIS-10 Quality of Life Very Good PROMIS-10 Physical Health Good PROMIS-10 Mental Health Very Good PROMIS-10 Social Activity Good PROMIS-10 Everyday Activities Moderately PROMIS-10 Pain 1 PROMIS-10 Fatigue Moderate PROMIS-10 Social Roles Good PROMIS-10 Anxious or Depressed Rarely PROMIS PHYSICAL SCORE (range 16-68) 42.3 PROMIS MENTAL SCORE (range 21-68) 50.8 HOOS JR Scores 52.97 AMBER Grade 7 Live Alone - Combined Household Income - # People Supported - Orthopeadics [facility] Response 04/30/2018 HOOS JR Scores 52.97 Spine [facility] Response 04/30/2018 HOOS JR Scores 52.97 VITALS: BP Readings from Last 1 Encounters: 04/30/18 139/63 Pulse Readings from Last 1 Encounters: 04/30/18 64 There is no height or weight on file to calculate BMI. PHYSICAL EXAM: Physical examination of the Right hip reveals satisfactory wound healing. Right hip motion is good and relatively pain free. The leg lengths are acceptable. IMAGING: X-rays of the Right hip were reviewed in the office and demonstrate satisfactory position and alignment of the components are present. No signs of loosening are seen. ASSESSMENT AND PLAN:Ms. Burnham is a 72 y.o. year old female s/p Right hip revision replacement. The patient will progress to a cane at this time. Hip precautions were reviewed. Anticoagulation therapy will be discontinued for the purpose of orthopedic thromboembolism prophylaxis. Return in three months for follow-up evaluation. Noemi Hudson MD documented in this encounter Plan of Treatment Upcoming Encounters Date Type Department Care Team (Late st Contact Info) Description 02/26/2024 10:15 AM EDT Office Visit Endocrinology at [facility] [place] [address] Cornell Harper MD [facility] [place] [address] documented as of this encounter Visit Diagnoses Diagnosis Prosthetic hip implant failure, subsequent encounter documented in this encounter Care Teams Assistant Housekeeping Manager Relationship Specialty Start Date End Date Baylee Elena APRN PCP - General Family Medicine 03/25/18 03/01/22 documented as of this encounter
--- OUTSIDE RECORDS SUMMARY | 2024-01-25 00:28 | XMS_ITS | Encounter Summary ---
Author Organization [facility] [place] [address] Care Team Providers Care Experimental Assembler Name Role Phone SamBaylee peterson Mukesh JORDAN Primary Care Provider [phone] Encounter Details Date Type Department Care Team (Late st Contact Info) Description 07/05/2018 4:15 PM EST Ancillary Procedure [place] [phone] Noemi Hudson MD [facility] [place] [address] Social History Tobacco Use Types Packs/Day Years [...] 10:15 AM EDT Office [place] [phone] Cornell Harper MD [facility] [place] [id number] documented as of this encounter Procedures Procedure Name Priority Date/Time Associated Diagnosis Comments FILM LIBRARY STORAGE ONLY DX HIP Routine 07/05/2018 4:11 PM EST documented in this encounter Results * Film Library- Storage Only DX Hip (07/05/2018 4:11 PM EST) Narrative RAD - 07/05/2018 4:11 PM EST This exam is for storage only and is auto-finalizing. Noemi ONEILL FILM LIBRARY OR DERABLES Performing Organization Address City/State/[facility] Co de Phone Number [place], [place] documented in this encounter Visit Diagnoses Not on filedocumented in this encounter Care Teams Experimental Assembler Relationship Specialty Start Date End Date Baylee Elena, CAP MACHINE OPERATOR PCP - General Family Medicine 03/25/18 03/01/22 documented as of this encounter
--- OUTSIDE RECORDS SUMMARY | 2024-01-25 00:29 | XMS_ITS | Encounter Summary ---
Author Organization [facility] [place] [address] Care Team Providers Care Tobacco Primer Machine Operator Name Role Phone Jamarcus Rodriguez MD Primary Care Provider [phone] Encounter Details Date Type Department Care Team (Late st Contact Info) Description 02/23/2014 Anti-Coag Telephone [place] [phone] Arnel Tucker MD [facility] [place] [address] Social History Tobacco Use Types Packs/Day Years [...] as of this encounter Progress Notes * Arnel Tucker MD - 02/23/2014 5:21 PM EDT Orthopaedic Surgery On-Call Anti-Coagulation Note Ms. Burnham called in this evening to request dosing recommendations for her Coumadin. Her INR was drawn today and was 1.6. Previous INR was 1.5 from last , 02/19/2014. Since then, she has taken 5 mg of Coumadin each day. Since she has barely increased, I have recommended that she take 7.5 mg of Coumadin ton, tomorrow, and Sunday. She will have her INR re-checked on , February 26. Arnel Tucker MD Orthopaedic Surgery documented in this encounter Plan of Treatment Upcoming Encounters Date Type Department Care Team (Late st Contact Info) Description 02/26/2024 10:15 AM EDT Office Visit Endocrinology at [facility] [place] [address] Cornell Harper MD [facility] [place] [address] documented as of this encounter Visit Diagnoses Not on filedocumented in this encounter Care Teams Tobacco Primer Machine Operator Relationship Specialty Start Date End Date Jamarcus Rodriguez MD [address] [place] [address] PCP - General 06/07/10 03/24/18 documented as of this encounter
--- OUTSIDE RECORDS SUMMARY | 2024-01-25 00:29 | XMS_ITS | Encounter Summary ---
Author Organization [facility] [place] [address] Care Team Providers Care Yarn Wrapper Name Role Phone Nirav Turner MD Primary Care Provider [phone] Reason for Referral * Consultation (Routine) - Closed by system - Referral Specialty Diagnoses / Procedures Referred By Contfermín t Referred To Contact Orthopaedic Surgery Diagnoses Status post right hip replacement Breann Ochoa PA [facility] [place] [address] Referral ID Status Reason Start Date Expiration Date Visits Requested Visits Authorized [id number] Closed by system - Referral Assume Subset of Care 02/06/2014 08/05/2014 1 1 Encounter Details Date Type Department Care Team (Latest Contact Info) Description 02/04/2014 10:11 AM EDT - 02/06/2014 2:24 PM EDT Hospital Encounter 3 [place] [id number] Steff Holland MD [facility] [place] [address] Pain in limb; OA (osteoarthritis); 02/04 Dr. Skyler Left Anterior AMBER; Status post right hip replacement, Dr. Morales 2008 Discharge Disposition: Home with VNA Social History [...] Sign Reading Time Taken Comments Blood Pressure 140/59 02/06/2014 11:00 AM EDT Pulse 85 02/06/2014 11:00 AM EDT Temperature 37.2 ??C (99 ??F) 02/06/2014 11:00 AM EDT Respiratory Rate 16 02/06/2014 11:00 AM EDT Oxygen Saturation 95% 02/06/2014 11:00 AM EDT Inhaled Oxygen Concentration - - Weight 71.2 kg (157 lb) 02/04/2014 10:20 PM EDT Height 157.5 cm (5' 2) 02/04/2014 10:20 PM EDT Body Mass Index 28.72 02/04/2014 10:20 PM EDT documented in this encounter Discharge Instructions * Discharge Instructions* Breann Ochoa PA - 02/06/2014 12:53 PM EDT Activity: You can weight bearing as tolerated on your Left leg using a walker or crutches at all times for balance and protection. Remember your hip precautions: Standard: You should transition from sit to stand and stand to sit utilizing a broad based stance with feet and knees wider than hips. Wear the VIN hose bilaterally to your lower legs until you are seen in followup. You should remove these at least once per day to inspect your skin. Coumadin flow sheet: Date Notes INR Coumadin (mg) 02/04/2014 day of operation 5 mg 7 POD 1 1.1 5 mg 02/06 D/C POD 2 1.4 5 mg Anti-coagulation follow up: (FOR HOME BOUND PTS) 1. You should take 5mg (1 of the 5mg pills) of Coumadin today. Take this medication at the same time each day = usually 5pm 2. Your coumadin level or INR target range is 2-3 and this will need to be checked by the Visiting Nurse on the day after discharge and at least twice per week thereafter (usually every Sunday and ). The INR should be reported to the [facility] Ortho clinic at [phone], and you will be informed of any needed changes in your Coumadin dose. 3. If your INR level is ever above 3.5 you should not participate in aggressive Physical therapy exercises - you can mobilize/ambulate. This will decrease the possibility of more bleeding into your joint. Once your INR is less than 3.5 you can resume Physical therapy. One of the Orthopedic nurses will call you with further instructions as needed. 4. You will be on Coumadin for 4 weeks. On March 04, STOP the Coumadin and on March 05 begin Enteric Coated Aspirin 325mg twice a day until you are seen in followup with your orthopedic surgeon. Take the aspirin with food Diet: usual but increase your intake of fluids and fiber while you are on narcotic pain meds to prevent constipation Driving: None until you are cleared to do so by your orthopedic surgeon. You should not drive whileyou are on narcotic pain meds as they can affect your judgement and reaction time. Call your surgeon with any questions/concerns. Medications: 1. The pain medication you are on can cause constipation so increase your intake of fluids and fiber while you are on them. The stool softener, Sennakot, that has been prescribed can also be taken tofacilite a bowel movement. You can also take an tzaf-xoq-nlgmafi medication, miralax if needed to combat constipation. 2. If you need a renewal on your narcotic pain medication, you need to give the Orthopedic clinic enough time to process your request. This can take up to three days, so plan accordingly. 3. Continue the tylenol 1000 mg every 8 hours around the clock for the next 10 days(February 14 = itcan be effective in controlling pain along with your other medications. After February 14 you may continue to take tylenol as needed. DO NOT EXCEED 3000 mg tylenol in a 24 hour period. Shower: 1. You can shower but remember your activity limitations and always have a chair available for balance and protection. DO NOT submerge the dressing/incision. 2. (Mepilex) Do not let water run over the operative dressing. If it becomes wet lightly pat the dressing dry. When this operative dressing is removed you can let water gently run over the incision. DO NOT submerge the incision. 4. If you have westley/sutures always cover them with a waterproof dressing or plastic bag when showering until they are removed. 5. After westley/sutures are removed you can let water run gently over the incision. Wound (Mepilex): 1. No external westley or sutures inplace. Sutures are internal and will be absorbed over time. 2. Remove your operative dressing 7 days from your surgery (February 11). When it is removed you can leave the incision open to air or cover it with a light dressing. Do not peel dressing back to look at incision unless there is a problem. It will not re adhere to your skin. 3. If you have lots of drainage when you get home (and it is before February 11), remove this operative dressing and replace it with dry sterile gauze. Continue with daily dressing changes (and as needed) until the drainage stops, then remove the dressing and leave the incision open to air or lightlycovered. Misc: Remember that ICE and elevation are very important after surgery to help decrease swelling and control pain. Use ICE for 20-30 minutes at a time and keep your leg elevated as much as possible. FOLLOWUP APPOINTMENTS: 1. You will have followup appointments at [facility] as indicated in Future Appointment and Orders. Youwill have an xray prior to those appointments so please come to Radiology, desk 3T, 1 hour BEFORE your appointment for those x- rays. (plan to arive at 9:30 am for x-rays) Future Appointments Date Time [facility] 03/11/2014 10:30 AM Betty Dong APRN [facility] [address] [place] [address] CLIN If you have questions or concerns: Sunday through Sunday, 8 AM- 5 PM, please call Dr. Holland's office at . If it is after 5 PM or on the weekend, please call and ask for orthopedic resident on-call to be paged. documented in this encounter Medications at Time [...] Take 1,000 mcg by mouth daily. 07/03/2018 acetaminophen (TYLENOL) 500 mg tablet Take 2 tablets by mouth every 8 hours. around the clock until February 14 and then as needed. DO NOT EXCEED 3000 mg tylenol in a 24 hour period. 30 tablet 1 02/06/2014 02/17/2014 bisacodyl (DULCOLAX) [address] 1 suppository rectally daily as needed. 60 suppository 3 02/06/2014 01/22/2015 warfarin (COUMADIN) 5 mg tablet Take 1 tablet by mouth every evening. Your dose may vary depending on your INR value. You may need to break or combine pills to achieve the right dose. 35 tablet 0 02/06/2014 01/22/2015 HYDROmorphone (DILAUDID) 2 mg tablet Take 1-3 tablets by mouth every 4 hours as needed for Pain. Take the smallest dose possible to control your pain. You may break the pills. As your pain improves, take smaller doses and space doses farther apart. 90 tablet 0 02/06/2014 02/17/2014 documented as of this encounter Progress Notes * Ladonna Daugherty RN - 02/06/2014 2:17 PM EDT Patient discharged to home. IV removed, site benign. My assessment remains unchanged from my previous assessment. Discussed pain management with patient, pain tolerable. Patient medicated prior to discharge. Patient has all belongings and supplies needed. Patient received AVS and prescriptions. These were reviewed, patient verbalizes understanding of AVS. All questions answered. Patient encouraged to call with questions or concerns. Patient discharged to home with family. Discharge summary faxed to [facility]. LADONNA DAUGHERTY RN * Chad Heath PROFESSOR OF MATHEMATICS - 02/06/2014 11:31 AM EDT Physical Therapy Treatment Note Visit #: 2 Patient Dx: Pt. is a 68 y.o. female admitted on 02/04/2014 by Steff Lamas MD for L ant AMBER. Precautions:WBAT L L/E, standard hip precautions Staff communication/Mobility Recommendations: Encourage pt to ambulate with FWW. Interval History: uneventful S: Can I try the crutches, so I can be able to get out of the car a couple of time while travelling back home? O: Patient seen for 40 mins for mobility, strengthening and functional activities to address goals.Pt demonstrated the following ?? Transfers: Sit<>Stand to and from a FWW, independent. ?? Nu Step: Pt used Nu Step gentle LE's, UE's ROM exercise for ~5 minutes ?? Strengthening: Heel slides x 10 Isometric adduction x 5, held for 3 seconds each SAQ's x 10 Gluteal squeezes x 10, held for 3 seconds each LAQ's x 10 ?? Ambulation: ~ 150 ft with a FWW, stand by supervision for technique but otherwise independent. ?? Pt ambulated ~ 40 ft with bilateral crutches with supervision assist, VC for technique. ?? Stairs: Pt ascended/descended high platform step using FWW x 2 , Supervision to stand by assist,VC for technique Pain: Pt had some complaints of hip pain secondary to muscular cramping. Education: Pt educated on importance of strengthening exercises, mobility, and role of therapy. Pt instructed on proper usage of crutches. A: Pt is POD#2 L ant AMBER. Pt demonstrated increase tolerance and progress to functional bed mobility, transfers, gait, platform step training and exercise activities. Pt has met hospital PT goals to home and will benefit from continue skilled home PT. Physical Therapy Goals: Goals: (to be achieved by 02/06/14) Goal met? Yes No Pt will be knowledgeable of prescribed exercises. x Pt will be knowledgeable and compliant with any above noted precautions. x Pt will move supine<>sit ind. x Pt will move sit<>stand ind. x Pt will ambulate 150 feet using FWW ind x Pt will negotiate 1 steps using FWW ind. x Discharge Recommendations: Patient would benefit from continued therapeutic interventions 2-3 timesa week as provided in a home environment to progress toward functional goals. P: Pt has met hospital PT goals to home with supervision assist and VNA/PT services when medically ready for d/c. Total time spent with patient: 40 minutes Total timed interventions: 40 minutes BROOKS [facility] Physical Therapy Rehabilitation Department Chad Heath PTA Pager # [phone] * Frandy Hooper - 02/06/2014 6:02 AM EDT ORTHOPAEDIC INPATIENT PROGRESS NOTE Patient Name: Alyssa Burnham Age: 68 y.o. Summary of orthopaedic injuries: surgery: Left anterior AMBER POD#: 2 Non-ortho issues/significant PMH: Patient Active Problem List Diagnosis Code ??? CIS - Arthritis T999.0 ??? CIS - Entered not Verified T999.0 ??? CIS - GERD T999.0 ??? CIS - HTN T999.0 ??? CIS - hyperlipidemia T999.0 ??? CIS - reactive airway disease T999.0 ??? Status post right hip replacement, Dr. Morales 2008 V43.64 ??? 02/04 Dr. Holland Left Anterior AMBER 715.15 Subjective: no acute events overnight. Pain much improved this morning. No further episodes of nausea. No BM. Ambulated with physical therapy yesterday, has not done stairs. Eager to d/c to home. No cp/sob/n/v Objective: Temp: [36.8 ??C (98.2 ??F)-37.2 ??C (99 ??F)] Heart Rate: [59-92] Resp: [16] BP: (114-146)/(48-59) SpO2: [93 %-98 %] Intake/Output Summary (Last 24 hours) at 02/06/14 0604 Last data filed at 02/06/14 0530 Gross per 24 hour Intake 460 ml Output 2075 ml Net -1615 ml Gen: alert and oriented, no apparent distress. RlE: dressing c/d/i soft, nontender sensation intact superficial peroneal, deep peroneal, tibial distributions / sensation intact axillary, radial, median, ulnar distributions motor intact ankle plantar flexion, ankle dorsiflexion, EHL / motor intact EPL, FPL, IO 2+ DP pulse, < 2 sec cap refill / 2+ radial pulse, < 2 sec cap refill Labs: Recent Labs Basename 02/06/14 0335 WBC 8.1 RBC 3.60* HGB 10.4* HCT 31.2* MCV 86.7 MCH 28.9 MCHC 33.3 PLATELET 164 RDWCV 14.3 Lab Results Component Value Date Sodium 140 02/06/2014 Potassium 3.8 02/06/2014 Chloride 103 02/06/2014 CO2 27 02/06/2014 BUN 7* 02/06/2014 Creatinine 0.63* 02/06/2014 Glucose Lvl 121 02/06/2014 Recent Labs Basename 02/06/14 0335 INR 1.4* X-rays: intraopeartive fluor imaging shows left hip is reduced with excellent alignment of components Assessment: 68yo F POD #2 s/p left AMBER. Pain control much better this morning, anticipate d/ct o home later this afternoon when clears PT Plan: Issues: Activity: Mobilize with PT, weight bear as tolerated Standard precautions Dressings: Mepilex Ag x 7 days, resorbable sutures Antibiotics: Ancef x 24h Anticoagulation: coumadin, on chronically, no bridging Pain control: oral pain medications Discharge planning: home with VNA * Steff Holland MD - 02/05/2014 5:47 AM EDT ORTHOPAEDIC INPATIENT PROGRESS NOTE Patient Name: Alyssa Burnham Age: 68 y.o. Summary of orthopaedic injuries: surgery: Left anterior AMBER POD#: 1 Non-ortho issues/significant PMH: Patient Active Problem List Diagnosis Code ??? CIS - Arthritis T999.0 ??? CIS - Entered not Verified T999.0 ??? CIS - GERD T999.0 ??? CIS - HTN T999.0 ??? CIS - hyperlipidemia T999.0 ??? CIS - reactive airway disease T999.0 ??? Status post right hip replacement, Dr. Morales 2008 V43.64 ??? 02/04 Dr. Holland Left Anterior AMBER 715.15 Subjective: Objective: Temp: [36.2 ??C (97.2 ??F)-36.9 ??C (98.4 ??F)] Heart Rate: [64-85] Resp: [12-20] BP: (99-165)/(46-75) SpO2: [95 %-100 %] Intake/Output Summary (Last 24 hours) at 02/05/14 0550 Last data filed at 02/05/14 0453 Gross per 24 hour Intake 2623 ml Output 2475 ml Net 148 ml Gen: alert and oriented, no apparent distress. RlE: dressing c/d/i soft, nontender sensation intact superficial peroneal, deep peroneal, tibial distributions / sensation intact axillary, radial, median, ulnar distributions motor intact ankle plantar flexion, ankle dorsiflexion, EHL / motor intact EPL, FPL, IO 2+ DP pulse, < 2 sec cap refill / 2+ radial pulse, < 2 sec cap refill Labs: Recent Labs Basename 02/05/14 0321 WBC 5.7 RBC 3.53* HGB 10.1* HCT 30.5* MCV 86.4 MCH 28.6 MCHC 33.1 PLATELET 154 RDWCV 14.5* Lab Results Component Value Date Sodium 141 02/05/2014 Potassium 4.2 02/05/2014 Chloride 106 02/05/2014 CO2 25 02/05/2014 BUN 9 02/05/2014 Creatinine 0.69* 02/05/2014 Glucose Lvl 122 02/05/2014 Recent Labs Basename 02/05/14 0321 INR 1.1 X-rays: intraopeartive fluor imaging shows left hip is reduced with excellent alignment of components Assessment: 68yo F POD #1 s/p left AMBER. Anxious, will plan on mobilization with PT this morning with progress towards d/c Plan: Issues: pain control Activity: Mobilize with PT, weight bear as tolerated Standard precautions Dressings: Mepilex Ag x 7 days, resorbable sutures Antibiotics: Ancef x 24h Anticoagulation: coumadin, on chronically, no bridging Pain control: d/c CUSTOMER OPERATIONS MANAGER, oral pain medications D/c OSMEL levine Discharge planning: home vs rehab per PT Attending Note. I have seen the patient, I have reviewed the care plan as described, and I agree (with any changes or additions outlined below). Some pain issues, but improved. Expect discharge in 24 hours to home with VNA. Steff Holland MD * Nanda Albarado RN - 02/04/2014 7:03 PM EDT Patient arrived to floor from PACU alert and oriented x 3. Patient states that pain is tolerable. Educated and discussed pain management with patient. Patient verbalizes understanding of pain control. Patient denies CP/SOB. See my assessment on flowsheet. Oriented patient to room, call bailey is within reach. Will continue to monitor. * Chris Cuba - 02/04/2014 5:14 PM EDT Post-Operative Progress Note Patient: Alyssa Bland-Obed s/p Left Anterior Approach AMBER Surgery: 02/04/2014 [id number] Procedure(s) (LRB): @TOTAL HIP ARTHROPLASTY, ANTERIOR APPROACH (Left) MODIFIER CORAIL FEMORAL STEM DEPUY (Left) MODIFIER PINNACLE ACETABULUM DEPUY (Left) Surgeon(s) and Role: * Steff Holland MD - Primary * Frandy Hooper MD - Resident-Surgeon Jad * Job Blackman MD - Resident-Lesser Role: 1 Hr 54 Min 26 Sec * No complications entered in OR log * Short History: awakened from anesthesia, extubated and taken to the recovery room in a stable condition, having suffered no apparent untoward event. Patient location: PACU Post-op Consciousness awake, alert and oriented Post-op pain: Adequate analgesia Post-op nausea: no nausea or vomiting Post-op Cardiovascular Status: No chest pain and chest pressure/discomfort Post-op Respiratory Status: No shortness of breath and cough Post-op Wound Status clean, dry, intact Pain: Well controlled. Subjective/Events: Patient denies chest pain, shortness of breath, dizziness, headache, abdominal pain, nausea, vomiting. Objective: Vitals: Temp: [36.2 ??C (97.2 ??F)-36.9 ??C (98.4 ??F)] Heart Rate: [64-78] Resp: [12-20] BP: (99-165)/(46-75) SpO2: [95 %-100 %] Intake/Output Summary (Last 24 hours) at 02/04/14 1714 Last data filed at 02/04/14 1700 Gross per 24 hour Intake 1596 ml Output 1200 ml Net 396 ml Exam: General: NAD, awake/alert, responds to questions HEENT: Normocephalic, atraumatic Cardiac: RRR Resp: Breathing comfortably, CTAB Ext: WWP. Moving all 4 spontaneously LLE: 5/5 motor strength in EHL/FHL/TA/Gastrocs, SILT SPN/DPN/TN, toes are warm and well perfused with brisk capillary refill. Calves are soft and non-tender bilaterally. Neuro: No focal deficits. CN II-XII grossly intact. Wound: Dressing: clean, dry, intact A/P: 68 y.o. year old female POD#0 s/p above procedure. She is not having any complications post-operatively. - Vitals stable. - continue all post-operative care KANDICE GODINEZ MD 02/04/2014 5:14 PM * Ashly Dong RN - 02/04/2014 5:09 PM EDT 1700- Pt. Instructed about CUSTOMER OPERATIONS MANAGER. * Ashly Dong RN - 02/04/2014 3:54 PM EDT 1545- Pt. Taking sips of H2O. documented in this encounter H&P Notes * Steff Holland MD - 02/04/2014 11:35 AM EDT I have seen and examined the patient, there are no changes in the interval history and physical, ascompleted by the primary care physician, and there is no apparent contraindication to proceeding with surgery. documented in this encounter Procedure Notes * Jj Garcia - 02/07/2014 2:36 PM EDTAssociated Order(s): SCAN DOC: IMPLANTABLE DEVICES documented in this encounter Miscellaneous Notes * Op Note - Steff Holland MD - 02/12/2014 8:19 AM EDT Surgery Start Time: 1303 Surgery Stop Time: 1413 Date: February 04, 2014 Surgeon: Steff Holland MD Acid Etch Operator: Frandy Hooper MD Anesthesia: GET Pre-operative diagnosis: Left hip osteoarthritis Post-operative diagnosis: Same Surgical Procedure Performed: Injection left hip with 10 cc marcaine 0.25% with epi, into skin and subcutaneous tissues Left total hip arthroplasty, anterior Hueter approach with Mazama table Left hip intraoperative radiologic examination Components Used: Depuy Corail stem, size 11, standard [place] cup, 50 mm, solid 32 mm ID, neutral poly 32+5 mm CoCr head Bearing surface: metal on poly Estimated Blood Loss: 500 cc Complications: None apparent Weight bearing status: Weight bearing as tolerated Wound closure: Monocryl 3-0 and Dermaflex skin adhesive. No stitches or westley to remove. Dressing changes: Mepilex AG to be left in place for 7 days before removal. Follow-up Plan: In [facility], 3D, in 4 weeks post-operatively with new x- rays of operated joint. Anticoagulation: ASA We will use ASA for DVT prophylaxis in combination with mechanical compression (SCDs), with the rationale that clinical evidence suggests that Coumadin has a higher risk of post-surgical bleeding, and that a surgical site bleed would significantly compromise this patient's recovery from the surgery, as well as potentially compromising further joint function. The patient gives no history of activecancer, clotting disorder, or previous DVT or PE. Possible barriers to discharge: None Plan for hospital stay: Standard Anticipated Length of Stay: 2 days. Special orders: No dislocation precautions, no abduction pillow. Please use SCDs, have TEDs on both legs Technique: Patient was taken to the operating room and a GET anesthetic was induced. According to AAOS recommendations, prophylactic antibiotics were administered within one hour of incision time. A timeout wasperformed. Patient was positioned supine on the Mazama table, both feet and ankles were padded and then carefully placed in the traction boots. The perineal post was also padded with gelfoam. The patient was then prepped and draped in the usual sterile manner using chlorhexidine scrub, alcohol and finally DuraPrep. Hip Exposure and capsulotomy: We marked out the incision beginning about 1.5 cm lateral of the anterior superior iliac spine, proceeding distally about 11 cm, diverging at about a 20?? angle away laterally from the axis of the femur. Incision was made through skin, the subcutaneous tensor fascia bethany fascia was identified and split in line. The anterior extent of this fascia was held into Dot clamps. Using blunt dissection, we mobilized the tensor fascia muscle, reflected it posteriorly, and retracted it with a Sarita retractor. We were able to identify the perforating leashes of vessels at the base of the wound deep to the floor of the TF fascia, these were carefully coagulated. This allowed us then to proceed deeper and to reflect the inferior extent of the TFL fascia anteriorly. This exposed the anterior hip capsule, adherent portions of the reflected head of the rectus femoris werethen mobilized medially using a Oliveira elevator. A Cobra retractor was placed after palpation of the greater trochanter, the first retractor was placed superior over the femoral neck, a second elevatorwas placed inferiorly beneath the femoral neck. Blunt finger dissection along the medial aspect of the femur was used to identify the interval. A sharp Hohmann retractor was then placed anteriorly, and the interval between the reflected and long heads of rectus femoris. We then incised the fascia above the reflected head, used a Oliveira to from the capsule, and placed an anterior retractoron the anterior acetabular rim. We the performed a straight capsulotomy using a Bovie cautery, parallel to the femoral neck, the second limb was made perpendicular. The inferior cobra retractor was now placed intra-articular, again one above and one below the femoral neck. Medial dissection continued distally to the level of the lesser trochanter. The superior capsula was excised and the second cobra was now moved intracapsular, just above the femoral neck. Dislocation and femoral neck cut: The femoral neck was cut with a reciprocating saw. A corkscrew onpower was then inserted into the femoral head. Three cranks of gross traction were placed on the operated leg, with 60 degrees external rotation, and this allowed distraction of the head from the socket. It also allowed easy removal of the femoral head. Acetabular exposure and preparation: Sharp curved retractors were placed at the 9 o'clock and 4 o'clock position of the acetabulum. The femur was translated lateral and posterior to the acetabulum. This allowed excellent acetabular exposure, the labrum was then resected and reaming began at 47 mm. We proceeded incrementally up to 49 mm at which time we had circumferential bleeding bone. An acetabular component was placed and found to have excellent rim fit. No screws were placed. The component was then checked under fluoroscopic control, aiming for a lateral abduction of about 40??, and anteversion of about 20??. A liner was placed and impacted according to lime hide inspector's instructions. Any impinging osteophytes were removed. The socket was then thoroughly irrigated. Attention then turned to the femur. Femoral exposure: After removal of acetabular retractors, the traction was released and the femur was externally rotated to about 100??. The lateral capsule was resected, the posterior quadrant of the femur was also released, allowing forward mobilization of the femur. A Bowers retractor was then placed beneath the greater trochanter. A lateral and superior force was applied. This allowed the greater trochanter to disengage from the posterior column of the acetabulum and then to elevate the femur anteriorly. While holding the femur in this position, the positioning arm of the operated leg was dropped to full extension and maximal allowable adduction. No HANA hook was used. The femur was then held elevated, a femoral elevator was placed under the calcar and this was used to displace the femur superiorly and laterally. At the same time, the graduate assistant leaned against the thigh to optimize femoral adduction. At this point, special attention was turned to the soft tissues laterally to the resected femoral neck. A rongeur was used to remove any remnant of the femoral neck and we then proceeded to use a Bovie to reflect circumferentially the soft tissues around the resected neck. Finally, all remaining tissues in the piriformis fossa were resected using cautery, giving us a clear view of the entire resected neck footprint, as well as the piriformis fossa and the medialmost aspect of the greater trochanter. Femoral preparation: The flexible T-handle and then the first broach was used to enter the femoral metaphysis in line with the posterior femoral cortex, at about 10?? of anteversion. The broach was used to enlarge the femoral opening, then broaching continued, applying a force against the greater trochanter to ascertain that the broach remained has fully lateral as possible with every pass. We proceeded with broaching incrementally until a size 11 was fully seated. We then used the calcar planer to resect any remaining calcar that extended proximal to the stem's final resting position. A trial neck and standard femoral head were placed, the Bowers retractor was disengaged and fully relaxed. The operated hip was then brought back into neutral position by bringing the leg out of adduction and extension. After neutral position was reestablished, about 90?? of external rotation were placedon the operated leg followed by 2 cranks of gross traction. The acetabulum was irrigated and cleared of all debris, the hip was then internally rotated to 30?? internal rotation. This allowed easy reduction of the hip. Full rotational range of motion was tested, confirming that there was no impingement of the femoral neck against the acetabular component either anteriorly or posteriorly. Fluoroscopic imaging was used to confirm proper offset and leg length as well as femoral broach position. Atthis point, 2 cranks of gross traction were placed on the operated leg, again the hip was externally rotated to about 90?? external rotation allowing easy dislocation. All traction was released, and the proximal femur was elevated and pulled laterally. The position of adduction and hip extension was reestablished by moving the positioning arm on the operated leg and then externally rotating the femur to about 90??. Again, the femur was lateralized and lifted, the Bowers retractor was then engaged to support this position. All trial implants were removed, the femoral canal was gently irrigated, the actual femoral implant was then inserted with gentle taps from a mallet, and the femoral headwas then impacted on the clean trunion. Again, the proximal femur was lowered, the Bowers retractor was removed and the leg was brought back to a neutral position, 2 cranks of traction along with 30?? of external rotation were followed by internal rotation to 20?? and release of traction which allowed reduction of the hip joint. Closure: After thorough irrigation, the tensor fascia bethany muscle was allowed to come back to its anatomic position and irrigated, and a running Quill #2 suture was used to close the fascia. Fat was closed with inverted Vicryl zero, more superficially with Vicryl 2-0 and then Monocryl and Dermabondwere used to close skin, and a dry sterile Mepilex AG dressing was applied. All counts were correct. Patient was carefully removed from the traction boots and transferred back to the hospital bed. Noabduction pillow was placed. The patient returned to the recovery room in stable condition. Implant Information: Implant Name Type Inv. Item Serial No. Roll Coverer Lot No. LRB No. Used Action CUP,HIP,ACETB,GRPTN,100,50MM ([id number]) (AUTOREQ) - [id number] IMPLANTS CUP,HIP,ACETB,GRPTN,100,50MM ([id number]) (AUTOREQ) [id number] Left 1 Implanted INSER,ALTRX,NT,[id number] ([id number]) (AUTOREQ) - [id number] IMPLANTS INSER,ALTRX,NT,[id number] ([id number]) (AUTOREQ) [id number] Left 1 Implanted STEM,CRL2,STD,SZ11 ([id number]) (AUTOREQ) - [id number] IMPLANTS STEM,CRL2,STD,SZ11 ([id number]) (AUTOREQ) [id number] Left 1 Implanted BALL,ATC,BRN,+5MM,32MM ([id number]) (AUTOREQ) - [id number] IMPLANTS BALL,ATC,BRN,+5MM,32MM ([id number]) (AUTOREQ) [id number] Left 1 Implanted * OR Attestation - Steff Holland MD - 02/12/2014 7:56 AM EDT Attestation: Case Date: 02/04/2014 I was present and I participated during the entire procedure (does not need to include opening and closing). STEFF HOLLAND MD 02/12/2014 * Miscellaneous - Provider, Scanning - 02/07/2014 2:36 PM EDT * Discharge Summary - Brenan Ochoa PA - 02/06/2014 12:27 PM EDT Discharge Summary Patient Name: Alyssa Stuartult Patient Age: 68 y.o. Language: Telugu Race: White Ethnicity: Not nor Admit date: 02/04/2014 Discharge date and time: 02/06/2014 Attending Physician: Steff Holland MD Discharge Physician: Steff Holland MD Follow-up Recommendations for Providers: Please see patient discharge instructions for additional details. Inpatient Provider Contact Information: Steff Holland MD Joints: [phone] After hours and weekends, call [facility] Reject Opener, , and have Orthopedic resident paged. Discharge Diagnoses (Hospital Problems) and Secondary Diagnoses (Chronic Problems): Active Hospital Problems Diagnosis ??? 02/04 Dr. Holland Left Anterior AMBER Resolved Hospital Problems Diagnosis Date Resolved No resolved problems to display. Active Non-Hospital Problems Diagnosis ??? Status post right hip replacement, Dr. Morales 2008 ??? CIS - Entered not Verified ??? CIS - Arthritis ??? CIS - GERD ??? CIS - HTN ??? CIS - hyperlipidemia ??? CIS - reactive airway disease Operations/Major Procedures: 02/04/2014 Procedure(s): @TOTAL HIP ARTHROPLASTY, ANTERIOR APPROACH Surgeon(s) and Role: * Steff Holland MD - Primary * Frandy Hooper MD - Resident-Surgeon Jad * Job Blackman MD - Resident-Lesser Role History of Presentation: This is a 68 year old Female here for a rotary appointment for right hip AMBER. Right hip AMBER doing well no falls or injuries or infections. She continues to feel much better than her preoperative status. Left hip primary OA that has recently been followed by an outside provider Mikael Salgado D.O. in [place] after she did experience increased left hip pain after shoveling 3 mm months. At that time, The aforementioned Orthopaedic provider did order a left hip MRI scan revealed a cam lesion moderate severe degenerative joint disease. She was advised to seek consultation for possible left hip arthroplasty. She does split her time between [place] and [place] to care for her aging parents essentially spending ~ 6 months in [place] and [place]. She describes her left hip pain as moderate to severe with difficulty putting her shoes and socks on. She does use a cane for assistance and ywsl-rwd-opodpdx anti-inflammatories. She is just about to start her progress PT program for pre-HAB rehabilitation exercises. There is some complaints of non radicular low back pain. Yet,No radiculopathy or numbness or tingling. She states that her health is otherwise stable. Hospital Course: The patient was admitted via Same Day Surgery for the above operation. DVT prophylaxis was: Coumadin. Patient began rehab on POD#1 for weight bearing as tolerated of left leg and reinforcement of the AMBER Precautions. Levine was removed on POD#1 and patient was voiding spontaneously. Mepilex dressing was inspected POD#2 and found to be benign. Patient did not have a bowel movement prior to discharge but was passing flatus and was taking a diet without difficulty. By POD#2 the patient was medically stable and was cleared for safe discharge to home per PT. Vital Signs at Discharge: Weight: Wt Readings from Last 1 Encounters: 02/04/14 71.215 kg (157 lb) Height: Ht Readings from Last 1 Encounters: 02/04/14 157.5 cm (5' 2) HC: HC Readings from Last 1 Encounters: No data found for HC BMI: Body mass index is 28.71 kg/(m^2). Last value Range last 24 hrs Temperature Temp: 37.2 ??C (99 ??F) Temp: [36.8 ??C (98.2 ??F)-37.2 ??C (99 ??F)] Heart Rate Heart Rate: 85 Heart Rate: [67-92] Blood Pressure BP: 140/59 mmHg @[id number]@ Respiratory Rate Resp: 16 Resp: [16] SpO2 SpO2: 95 % @[id number]@ Art BP BP (Arterial Line): -- Functional and Cognitive Status: Patient is ambulating with assistive device. Cognitively intact. Important Studies and Lab Data: Labs: Last wbc, hgb, hct plt Recent Labs Basename 02/06/14 0335 WBC 8.1 HGB 10.4* HCT 31.2* Last 3 Lytes Recent Labs Basename 02/06/14 0335 02/05/14 0321 02/02/14 1117 NA 140 141 141 K 3.8 4.2 3.7 CL 103 106 104 CO2 27 25 25 BUN 7* 9 14 CREATININE 0.63* 0.69* 0.76 Last 3 Coags Recent Labs Basename 02/06/14 0335 02/05/14 0321 02/02/14 1117 PT 17.8* 14.6 12.6 INR 1.4* 1.1 0.9 PTT -- -- -- Transfusions: No Studies: None new. Discharge Conditions/Prognosis: Stable, awake, and alert. Mobilizing with walker/crutches, pain controlled on oral medications. Discharge to: [...] Polyvalent 23 08/16/2008 Discharge Medications: Your Medications As of 02/06/2014 1:02 PM Notice Some of the medications listed here do not show instructions, such as how often to take the medication. Ask your doctor or nurse how to use these medications. New Medications Dose Details acetaminophen 500 mg tablet Commonly known as: TYLENOL Take 2 tablets by mouth every 8 hours. around the clock until February 14 and then as needed. DO NOTEXCEED 3000 mg tylenol in a 24 hour period. Replaces: acetaminophen 650 mg CR tablet 1000 mg Quantity: 30 tablet Refills: 1 bisacodyl 10 mg suppository Commonly known as: DULCOLAX Place 1 suppository rectally daily as needed. 10 mg Quantity: 60 suppository Refills: 3 HYDROmorphone 2 mg tablet Commonly known as: DILAUDID Take 1-3 tablets by mouth every 4 hours as needed for Pain. Take the smallest dose possible to control your pain. You may break the pills. As your pain improves, take smaller doses and space doses farther apart. 2-6 mg Quantity: 90 tablet Refills: 0 polyethylene glycol 17 gram packet Commonly known as: MIRALAX Take 17 g by mouth daily as needed. 17 g Refills: 0 senna-docusate 8.6-50 mg per tablet Commonly known as: PERICOLACE Take 1-4 tablets by mouth 2 times daily. 1-4 tablet Quantity: 60 tablet Refills: 2 warfarin 5 mg tablet Commonly known as: COUMADIN Take 1 tablet by mouth every evening. Your dose may vary depending on your INR value. You may need to break or combine pills to achieve the right dose. 5 mg Quantity: 35 tablet Refills: 0 Continued medications, unchanged Dose Details acyclovir 800 mg tablet Commonly known as: ZOVIRAX Take 800 mg by mouth as needed. Cold sores 800 mg Refills: 0 albuterol 90 mcg/actuation inhaler Commonly known as: PROVENTIL HFA;VENTOLIN HFA Inhale 2 puffs into the lungs every 4 hours as needed. Use with spacer 2 puff Refills: 0 cephALEXin 500 mg capsule Commonly known as: KEFLEX Take 2,000 mg by mouth as needed. Takes 1 hour prior to dental work. 2000 mg Refills: 0 clobetasol 0.05 % cream Commonly known as: TEMOVATE Apply 1 Application topically as needed. 1 Application Refills: 0 cyanocobalamin 1,000 mcg tablet Take 1,000 mcg by mouth daily. 1000 mcg Refills: 0 FLOVENT HFA 220 mcg/actuation inhaler (Ask your doctor or nurse how to take this medication.) Generic drug: fluticasone Refills: 0 lovastatin 40 mg tablet Commonly known as: MEVACOR Take 80 mg by mouth nightly. 80 mg Refills: 0 omeprazole 20 mg capsule Commonly known as: PriLOSEC Take 20 mg by mouth daily. 20 mg Refills: 0 SERTRALINE ORAL Take 50 mg by mouth daily. 50 mg Refills: 0 STOPPED Medications acetaminophen 650 mg CR tablet Commonly known as: TYLENOL Replaced by: acetaminophen 500 mg tablet Smoking Status at Discharge: History Smoking status ??? Former Smoker Smokeless tobacco ??? Never Used Comment: in college Instructions Given to Patient at Discharge: There are no Patient Instructions on file for this visit. General Instructions Activity: You can weight bearing as tolerated on your Left leg using a walker or crutches at all times for balance and protection. Remember your hip precautions: Standard: You should transition from sit to stand and stand to sit utilizing a broad based stance with feet and knees wider than hips. Wear the VIN hose bilaterally to your lower legs until you are seen in followup. You should remove these at least once per day to inspect your skin. Coumadin flow sheet: Date Notes INR Coumadin (mg) 02/04/2014 day of operation 5 mg 02/05 POD 1 1.1 5 mg 02/06 D/C POD 2 1.4 5 mg Anti-coagulation follow up: (FOR HOME BOUND PTS) 1. You should take 5mg (1 of the 5mg pills) of Coumadin today. Take this medication at the same time each day = usually 5pm 2. Your coumadin level or INR target range is 2-3 and this will need to be checked by the Visiting Nurse on the day after discharge and at least twice per week thereafter (usually every Sunday and ). The INR should be reported to the [facility] Ortho clinic at [phone], and you will be informed of any needed changes in your Coumadin dose. 3. If your INR level is ever above 3.5 you should not participate in aggressive Physical therapy exercises - you can mobilize/ambulate. This will decrease the possibility of more bleeding into your joint. Once your INR is less than 3.5 you can resume Physical therapy. One of the Orthopedic nurses will call you with further instructions as needed. 4. You will be on Coumadin for 4 weeks. On March 04, STOP the Coumadin. Patient has declined theuse of aspirin as she is allergic. Diet: usual but increase your intake of fluids and fiber while you are on narcotic pain meds to prevent constipation Driving: None until you are cleared to do so by your orthopedic surgeon. You should not drive whileyou are on narcotic pain meds as they can affect your judgement and reaction time. Call your surgeon with any questions/concerns. Medications: 1. The pain medication you are on can cause constipation so increase your intake of fluids and fiber while you are on them. The stool softener, Sennakot, that has been prescribed can also be taken tofacilite a bowel movement. You can also take an bsaq-hog-pusqqob medication, miralax if needed to combat constipation. 2. If you need a renewal on your narcotic pain medication, you need to give the Orthopedic clinic enough time to process your request. This can take up to three days, so plan accordingly. 3. Continue the tylenol 1000 mg every 8 hours around the clock for the next 10 days(February 14 = itcan be effective in controlling pain along with your other medications. After February 14 you may continue to take tylenol as needed. DO NOT EXCEED 3000 mg tylenol in a 24 hour period. Shower: 1. You can shower but remember your activity limitations and always have a chair available for balance and protection. DO NOT submerge the dressing/incision. 2. (Mepilex) Do not let water run over the operative dressing. If it becomes wet lightly pat the dressing dry. When this operative dressing is removed you can let water gently run over the incision. DO NOT submerge the incision. 4. If you have westley/sutures always cover them with a waterproof dressing or plastic bag when showering until they are removed. 5. After westley/sutures are removed you can let water run gently over the incision. Wound (Mepilex): 1. No external westley or sutures inplace. Sutures are internal and will be absorbed over time. 2. Remove your operative dressing 7 days from your surgery (February 11). When it is removed you can leave the incision open to air or cover it with a light dressing. Do not peel dressing back to look at incision unless there is a problem. It will not re adhere to your skin. 3. If you have lots of drainage when you get home (and it is before February 11), remove this operative dressing and replace it with dry sterile gauze. Continue with daily dressing changes (and as needed) until the drainage stops, then remove the dressing and leave the incision open to air or lightlycovered. Misc: Remember that ICE and elevation are very important after surgery to help decrease swelling and control pain. Use ICE for 20-30 minutes at a time and keep your leg elevated as much as possible. FOLLOWUP APPOINTMENTS: 1. You will have followup appointments at [facility] as indicated in Future Appointment and Orders. Youwill have an xray prior to those appointments so please come to Radiology, desk 3T, 1 hour BEFORE your appointment for those x- rays. (plan to arive at 9:30 am for x-rays) Future Appointments Date Time Provider Department Center 03/11/2014 10:30 AM Betty Dong APRN [facility] If you have questions or concerns: Sunday through Sunday, 8 AM- 5 PM, please call Dr. Holland's office at . If it is after 5 PM or on the weekend, please call and ask for orthopedic resident on-call to be paged. Future Appointments and Orders Future Appointments: Provider: Department: Zhou Phone: Center: 03/11/2014 10:30 AM Betty Dong APRN Orthopaedics [phone] [facility] Joint Appt Questionnaire [facility] [phone] [facility] Future Orders Please Complete By Expires Referral for Anticoagulation Monitoring [[id number] Custom] Process Instructions: If no progress note charted, please enter Clinical details in comments. Scheduling Instructions: Comments: Questions: Responses: My question or request is: pt on coumadin for 28 days after surgery.INR 1.4 on d/c. 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 The encounter with the patient was in whole, or in part, for the following medical condition, whichis the primary reason for home health care services: s/p left anterior total hip arthroplasty on 02/04/14. In discussion with the provider, it is certified that, based on their findings, the following services are medically necessary for home health services. To provide the following care/treatments with the clinical findings supporting the need for services as follows: Home Health Agency: [facility] PHONE: [phone] FAX: [phone] Home care orders for Total Hip Replacements: PT (please order RN of PT is not able to carry out following orders or patient's condition indicates it on assessment): 1. Draw PT/INR as follows: per MD orders. First draw is February 07. For week discharged: If d/c is Sunday, do Sunday and Sunday; If d/c is Sunday, do Sunday and Sunday; If d/c is Sunday, do only is Ok Thereafter, PT/INR: every Sunday and x 4 weeks Point of care testing is acceptable to obtain results PT/INR results to be reported as follows: [facility] Orthopedic anticoagulation (Coumadin) clinic @ ; 2. Assess wound, pain management, medication effectiveness and management, elimination, nutrition. Do not lift the edge of the mepilex dressing to observe the incision; this dressing needs to stay inplace until 7 days after surgery February 11. 3. Staple or Suture removal in 10-14 days. 4. Continue rehab for balance, endurance, joint mobility, ROM, Strength, AMBER protocol. In discussion with the attending physician, it is certified that the clinical findings support thatthis patient is homebound ;i.e. absences from home require considerable and taxing effort due to: need for assistive device and personal assistance to leave the home, expected pain and fatigue related to recovering from joint replacement surgery. All VNA agencies which cover the area of patient's residence have been reviewed, either verbally lexi writing, and patient/family have chosen the home health care agency as noted for home services. Questions: Responses: Agency name and contact information [facility] Patient location post discharge Home What services are requested Registered Nurse Physical Therapy Start date 02/07/2014 Responsible MD post discharge contact info PCP/[facility] Orthopaedic Service Primary Care Provider: NIRAV TURNER MD [phone] * Plan of Care - Marcelina Liu RN - 02/05/2014 6:55 PM EDT Problem: Fall/Trauma/Injury Risk (Adult, Obstetrics) Goal: Absence of Trauma/Injury/Falls Patient will demonstrate the desired outcomes. Patient remains free of falls during this hospitalization. Non-skid socks on feet when out of bed. Patient has a call bailey within reach, and aware to alert RN when wanting to mobilize. Problem: Pain, Acute (Adult, Obstetrics) Goal: Acceptable Pain Control/Comfort Level Patient will demonstrate the desired outcomes. Patient tolerating Dilaudid 4mg q4hrs PRN. Patient did c/o intermittent nausea this morning at shift change, medicated with Zofran 4mg, nausea subsided. Patient then had a bout of emesis after lunch,about 2 hrs after last dose of pain meds, medicated with compazine at this time. Patient would liketo take Zofran prior to next dose of Dilaudid tonight. Patient states pain is 0-2/10 at rest and 4-5/10 when moving. Patient aware to alert RN if pain is not being controlled with current medication.RN will monitor patient. Problem: Skin Integrity Impairment, Risk/Actual (Adult, Obstetrics) Goal: Skin Integrity/Wound Healing Patient will demonstrate the desired outcomes. Patient's skin intact at this time except for incision to left hip. Patient aware of need to reposition self every 2 hours and to call nursing if help is needed. RN will continue to monitor. Problem: Hip Replacement, Total (Adult) Goal: Signs and symptoms of listed potential problems will be absent or manageable (reference (Hip Replacement, Total (Adult)) CPG) Patient is post-op day 1 left total hip replacement, anterior approach. Silver mepilex clean, dry, and intact. Patient ambulating with standby assist and front-wheel walker. Patient aware of daily exercises and is following their precautions. * Initial Assessments - Todd Matthew RN - 02/05/2014 4:45 PM EDT Office of Care Management/Clinical Tar And Ammonia Pump Operator (CRC)/Initial Assessment CRC Todd Matthew RN (pager [phone]) Patient: Alyssa Burnham : 1945 (68 y.o.) Home: [facility] [id number]* LOS: 1 day Care reviewed with Dr. Kandice Godinez and at interdisciplinary discharge rounds. Reviewed record and interviewed patient. Introduced CRC role and services accepted. Patient Active Problem List Diagnosis Code ??? CIS - Arthritis T999.0 ??? CIS - Entered not Verified T999.0 ??? CIS - GERD T999.0 ??? CIS - HTN T999.0 ??? CIS - hyperlipidemia T999.0 ??? CIS - reactive airway disease T999.0 ??? Status post right hip replacement, Dr. Morales 2008 V43.64 ??? 02/04 Dr. Holland Left Anterior AMBER 715.15 ?? Social/Family situation: [place] alone [place] [address] [place] Has arranged for a friend to stay with her when discharged home. Extended Emergency Contact Information Primary Emergency Contact: Cindy St Relation: Sibling Secondary Emergency Contact: Cezar Bland/Eleanor Relation: Child ?? Code status: Full Code ?? Advance directives: Received ?? Insurance coverage: Medicare AB, [employer] ?? Admission status: 02/04/14 IPI Order to Admit is appropriate and waiting to be signed by an attending provider; notified Dr. Steff Holland via email. ?? Anticipated barriers to discharge: None ?? Financial concerns: None ?? Identified patient/family concerns r/t discharge: None ?? Professor Of Business Administration referral indicated: No ?? Baseline functional status/mobility: Independent ?? Current home/community services/equipment: Walker ?? Current functional status/mobility: Walker with stand by assist ?? Anticipated discharge date: Tuesday 02/06 ?? Anticipated discharge place: Home into care of friend ?? Home health agency: [facility] RN/PT orders pended. ?? Transportation at discharge: Friend ?? PCP: NIRAV TURNER MD, Future Appointments Date Time Provider Department Center 03/11/2014 10:30 AM Betty Dong APRN [facility] Plan: Care Management will continue to monitor progress, follow for continuity of care, and assist with discharge planning. * Initial Assessments - Good Orozco, VENECIA - 02/05/2014 1:08 PM EDT Occupational Therapy Evaluation Patient profile: Alyssa Jacques Burnham is a 68 y.o. female patient of Steff Lamas MD, admitted on 02/04/2014 L ant AMBER. PMH: Active Non-Hospital Problems Diagnosis ??? Status post right hip replacement, Dr. Morales 2008 ??? CIS - Entered not Verified ??? CIS - Arthritis ??? CIS - GERD ??? CIS - HTN ??? CIS - hyperlipidemia ??? CIS - reactive airway disease Past Surgical History Procedure Date ??? Created by interface Entered not Verified Procedure Date: 09/02/2010 ??? Created by interface TOTAL HIP ARTHROPLASTY / RIGHT/PINNACLE BRAYDON./S-ROM FEMORAL Procedure Date: 12/02/2008 ??? Total hip arthroplasty 02/04/2014 @TOTAL HIP ARTHROPLASTY, ANTERIOR APPROACH performed by Steff Holland MD at [facility] MAIN OR Social History: Patient lives alone, however girlfriend will be staying with her for a week. 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 Patient using a cane for mobility. Code Status: Full Code Precautions: WBAT, L/E standard hip precautions Subjective: I will be Ok. It just gets stiff. Objective: Seen today for OT evaluation. Cognitive Status/Behavior: alert, oriented to person, place, and time Communication: WNL Vision & Perception: NT Range of motion, strength, coordination: WNL Sensation: NT Activities of Daily Living: Patient needs assistance for left sock, however will have a friend assist with donning/doffing vin hose. Patient has slip on shoes. Patient demonstrates ability to don pants supervision. Reviewed need for supervision for showering and shower transfer. Functional Mobility: Supervision with walker. Balance: Fair+ IADL???s: Assistance available to patient. Endurance: Information taken from last recorded vitals in flow sheet. Last value Range last 8 hrs Heart Rate Heart Rate: 79 Heart Rate: [59-79] Blood Pressure BP: 128/59 mmHg BP: (122-128)/(52-59) SpO2 SpO2: 94 % SpO2: [94 %] Good Pain: Patient with 1-2/10 pain in hip at rest and 6/10 with activity. Skin: Not assessed, incision Informed Consent: The patient agrees to and understands the OT treatment plan and goals. Education: patient educated on Role of occupational therapy/rehabilitation, Adaptive equipment training, ADL, Safety, Precautions/Protocol, Functional Mobility, Home Management and Recommendations and verbalize understanding. Patient status, treatment, and mobility recommendations discussed with nursing. Assessment: Pt has been seen by OT for evaluation, and she demonstrates and anticipate patient will be able to perform ADLS with assistance from a friend who will be staying with her at home the first week. Patient mobilizing well for ADLS. Patient agreeable to above recommendations for ADLS including supervision for showering and use of chair. We will monitor till d/c home with friend. Recommendations: Equipment needs at discharge: Patient has all necessary equipment Discharge Recommendations: Patient to be d/c home with friend and VNA Plan: Monitor while in house and f/u with ADL questions as needed Eval Date: 02/05/2014 Total time spent with patient: 17 minutes brief eval Total timed interventions: 0 minutes Pager: [phone] GOOD OROZCO OT 02/05/2014 Occupational Therapy Rehabilitation Department * Initial Assessments - Em Fields, PT - 02/05/2014 12:46 PM EDT Physical Therapy Evaluation Total Hip Arthroplasty Patient Profile: Pt. is a 68 y.o. female admitted on 02/04/2014 by Steff Lamas MD for L ant AMBER. PMH: Active Non-Hospital Problems Diagnosis ??? Status post right hip replacement, Dr. Morales 2008 ??? CIS - Entered not Verified ??? CIS - Arthritis ??? CIS - GERD ??? CIS - HTN ??? CIS - hyperlipidemia ??? CIS - reactive airway disease PSH: Past Surgical History Procedure Date ??? Created by interface Entered not Verified Procedure Date: 09/02/2010 ??? Created by interface TOTAL HIP ARTHROPLASTY / RIGHT/PINNACLE BRAYDON./S-ROM FEMORAL Procedure Date: 12/02/2008 ??? Total hip arthroplasty 02/04/2014 @TOTAL HIP ARTHROPLASTY, ANTERIOR APPROACH performed by Steff Holland MD at [facility] MAIN OR Social History: Patient is but has a friend to stay with her at d/c. 1 step x 3 to enter. 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 Subjective: Patient states ???I feel better now. They gave me something for the nausea?? Objective: Vitals: SpO2: WNL, HR WNL Most recent Hgb value: 10.1 Pain: 1/10 at rest, 6/10 with ambulating. Premedicated Functional Mobility: Supine->sit N/E. Pt received in CC Sit->supine N/E Sit->stand With supervision to FWW Stand->sit With supervision Gait: Ambulated approx 60 with FWW and supervision Gait pattern: Step-through gait but with decreased step length, slow Pt. to utilize FWW and 1 assist to ambulate with nursing staff. Today???s Treatment: 1. eval 2. Post op ex 1-5 x 10 reps each. T Informed Consent: The patient agrees to and understands the PT treatment plan and goals. Education: patient educated on Transfers, Assistive device/technique, Exercise, Safety , Precautions/protocol,Gait , Role of therapy and Discharge planning and verbalizes understanding. Patient status, treatment, and mobility recommendations discussed with nursing staff. Assessment: Pt is POD#1 L ant AMBER. Pt. tolerated today???s session well. Pt presents with pain, decreased ROM, strength, functional mobility, and gait skills. Pt will benefit from PT to address his/her functional deficits to restore prior level of function. Anticipate pt will progress and be able to d/c to home. Ambulation distance: 60 feet, limited by pain and fatigue Goals: (to be achieved by 02/06/14) Goal met? Yes No Pt will be knowledgeable of prescribed exercises. Pt will be knowledgeable and compliant with any above noted precautions. Pt will move supine<>sit ind. Pt will move sit<>stand ind. Pt will ambulate 150 feet using FWW ind Pt will negotiate 1 steps using FWW ind. Discharge Recommendations: Patient would benefit from continued therapeutic interventions 2-3 times a week as provided in a home environment to progress toward functional goals. Physical Therapist recommends: Occupational Therapy consult Plan: Patient to be seen daily for physical therapy to include Therapeutic exercises, Therapeutic functional activities and Gait training. Patient agrees to the plan as stated. Equipment needs: Patient has all necessary equipment. Activity plan w/nursing assist (discussed with nursing staff): amb with FWW and 1 assist Total treatment time: 35 minutes Total timed treatment: 0 minutes zakiya FIELDS, PT Pager: [phone] * Plan of Care - Sofia Mills RN - 02/05/2014 7:51 AM EDT Problem: Fall/Trauma/Injury Risk (Adult, Obstetrics) Goal: Identify Signs and Symptoms and Related Risk Factors Signs and symptoms and related risk factors are identified upon initiation of Human Response Clinical Practice Guideline (CPG) Outcome: Present (see interventions, notes) Patient ambulated to chair this morning. Patient remains free of fall/injury this shift. Patient calling for assistance when needed. Nonskid stockings on when out of bed. Environmental modifications and fall reduction measures in place. Clutter free environment maintained. Call light within reach at all times. Masimo on. Will continue to monitor. Problem: Pain, Acute (Adult, Obstetrics) Goal: Acceptable Pain Control/Comfort Level Patient will demonstrate the desired outcomes. Outcome: Present (see interventions, notes) Patient tolerating PO dilaudid. Patient states pain is 2/10. Patient aware to alert RN if pain is not well controlled with current pain medication. RN will monitor patient. Problem: Skin Integrity Impairment, Risk/Actual (Adult, Obstetrics) Goal: Skin Integrity/Wound Healing Patient will demonstrate the desired outcomes. Outcome: Present (see interventions, notes) Patient's dressing to left hip C/D/I. Patient's skin noted to be intact at this time and free of pressure ulcers. Patient able to independently turn themselves every 2 hours. Will continue to monitor. * Miscellaneous - Provider, Scanning - 02/04/2014 2:21 PM EDT * Miscellaneous - Provider, Scanning - 02/04/2014 2:21 PM EDT * Brief Op Note - Steff Holland MD - 02/04/2014 1:58 PM EDT Brief Operative Note Patient Name: Alyssa Burnham : [id number] MR#: [id number] Case Date: 02/04/2014 Surgeon: Surgeon(s) and Role: * Steff Holland MD - Primary * Frandy Hooper MD - Resident-Surgeon Jad * Job Blackman MD - Resident-Lesser Role Preoperative diagnosis: AMBER Postoperative diagnosis: AMBER Procedure(s): @TOTAL HIP ARTHROPLASTY, ANTERIOR APPROACH MODIFIER CORAIL FEMORAL STEM DEPUY MODIFIER PINNACLE ACETABULUM DEPUY Anesthesia: * No anesthesia type entered * Findings: OA, eburnated femoral head Complications: None apparent Fluids: per anesthesia Estimated Blood Loss: 500 cc Drains: None Disposition: Pending Condition: Pending (Please see the Surgical Encounter Summary for any Implant and Specimen details pertinent to this patient.) documented in this encounter Plan of Treatment Upcoming Encounters Date Type Department Care Team (Late st Contact Info) Description 02/26/2024 10:15 AM EDT Office Visit Endocrinology at [facility], [place], operated by [facility] [place] [address] Cornell Harper MD [facility] [place] [address] Pending Results Name Type Priority Associated Diagnoses Date /Time XR Fluoro OR c-arm storage only Imaging Routine 02/04/2014 1:45 PM EDT Scheduled Orders Name Type Priority Associated Diagnoses Orde r Schedule XR Fluoro OR c-arm storage only Imaging Routine Once PRN (for Ra diant use) for 1 Occurrences starting 02/04/2014 until 02/04/2014 Scheduled Referrals Name Type Priority Associated Diagnoses Order Schedule Referral for Anticoagulation Monitoring Outpatient Referral Routine Status post right hip replacement, Dr. Morales 2008 Ordered: 02/06/2014 documented as of this encounter Procedures Procedure Name Priority Date/Time Associated Diagnosis Comments IMPLANTABLE DEVICES SCAN 02/07/2014 2:36 PM EDT HEMOGRAM Routine 02/06/2014 3:35 AM EDT DIFFERENTIAL, AUTOMATED Routine 02/06/2014 3:35 AM EDT PROTHROMBIN TIME Routine 02/06/2014 3:35 AM EDT CBC (WITH DIFF) Routine 02/06/2014 3:35 AM EDT BASIC METABOLIC PANEL (NON-FASTING) Routine 02/06/2014 3:35 AM EDT HEMOGRAM Routine 02/05/2014 3:21 AM EDT DIFFERENTIAL, AUTOMATED Routine 02/05/2014 3:21 AM EDT PROTHROMBIN TIME Routine 02/05/2014 3:21 AM EDT CBC (WITH DIFF) Routine 02/05/2014 3:21 AM EDT BASIC METABOLIC PANEL (NON-FASTING) Routine 02/05/2014 3:21 AM EDT SURGICAL PATHOLOGY REPORT Routine 02/04/2014 1:10 PM EDT SPECIMEN TO PATHOLOGY Routine 02/04/2014 1:10 PM EDT MODIFIER PINNACLE GRIPTION ACETABULUM DEPUY 02/04/2014 12:15 PM EDT Pain in limb MODIFIER CORAIL FEMORAL STEM DEPUY 02/04/2014 12:15 PM EDT Pain in limb TOTAL HIP ARTHROPLASTY, ANTERIOR APPROACH (WRVU 19.6) 02/04/2014 12:15 PM EDT Pain in limb documented in this encounter Results * SCAN DOC: IMPLANTABLE DEVICES (02/07/2014 2:36 PM EDT) Narrative 02/07/2014 2:36 PM EDT Procedure Note Provider, Scanning - 02/07/2014 2:36 PM EDT Scanning Provider MEDIA MGR SCAN EXT O RDR/RSLT * (ABNORMAL) Differential, Automated (02/06/2014 3:35 AM EDT) Neutrophils % 76.9(H) 34.0 - 71.0 % CERNER MILLENNIUM Neutr Abs (ANC) 6.23 1.50 - 6.30 x10(3)/mc L CERNER MILLENNIUM Lymphocytes % 14.6(L) 19.0 - 53.0 % CERNER MILLENNIUM Lymphocytes Abs 1.2 1.0 - 3.6 x10(3)/mc L CERNER MILLENNIUM Monocytes % 7.4 4.0 - 13.0 % CERNER MILLENNIUM Monocyte Abs 0.6 0.2 - 1.0 x10(3)/mc L CERNER MILLENNIUM Eosinophils % 0.9 0.0 - 7.0 % CERNER MILLENNIUM Eosinophils Abs 0.1 0.0 - 0.5 x10(3)/mc L CERNER MILLENNIUM Basophils % 0.1 0.0 - 2.0 % CERNER MILLENNIUM Basophils Abs 0.0 0.0 - 0.2 x10(3)/mc L CERNER MILLENNIUM Immature Gran % 0.10 0.00 - 0.66 % CERNER MILLENNIUM Comment: Immature granulocytes(IG's)percentage and absolute count will include metamyelocytes, myelocytes, and promyelocytes. Blood smears from CBCs yielding IG's will be scanned manually for concordance. If this scan disagrees with the automated IG or if promyelocytes are noted, a manual differential will be performed. Fay Gran Abs 0.01 0.00 - 0.05 x10(3)/mc L CERNER MILLENNIUM Blood specimen (specimen) 02/06/2014 3:35 AM EDT 02/06/2014 3:56 AM EDT Narrative Resulting Agency Comment Spec In Lab Steff Holland MD HEMATOLOGY ORDERABLE S CERNER MILLENNIUM * (ABNORMAL) Hemogram (02/06/2014 3:35 AM EDT) WBC 8.1 4.0 - 10.0 x10(3)/mcL CERNER MILLENNIUM RBC 3.60(L) 3.93 - 5.22 x10(6)/mcL CERNER MILLENNIUM Hemoglobin 10.4(L) 11.2 - 15.7 gm/dL CERNER MILLENNIUM Hematocrit 31.2(L) 34.0 - 45.0 % CERNER MILLENNIUM MCV 86.7 79.0 - 94.0 fL CERNER MILLENNIUM MCH 28.9 26.6 - 32.2 pg CERNER MILLENNIUM MCHC 33.3 32.0 - 36.5 gm/dL CERNER MILLENNIUM Platelets 164 145 - 370 x10(3)/mcL CERNER MILLENNIUM RDWSD 45.3 35.0 - 46.0 fL CERNER MILLENNIUM RDWCV 14.3 10.9 - 14.4 % CERNER MILLENNIUM MPV 9.8 9.0 - 12.0 fL CERNER MILLENNIUM Blood specimen (specimen) 02/06/2014 3:35 AM EDT 02/06/2014 3:56 AM EDT Narrative Resulting Agency Comment Spec In Lab Steff Holland MD HEMATOLOGY ORDERABLE S Performing Organization Address City/[facility] Co de Phone Number NOLA LAMBERTIUM * (ABNORMAL) Prothrombin Time (02/06/2014 3:35 AM EDT) PT 17.8(H) 12.5 - 15.5 sec CERNER MILLENNIUM Comment: [facility] Transfusion Committee Guidelines: INR less than 2.0, PTT less than OR equal to 43.5 seconds, or Fibrinogen greater than or equal to 100 mg/dl indicate adequate procoagulant activity for hemostasis in patients without underlying bleeding disorders. INR 1.4(H) 0.9 - 1.1 CERNER MILLENNIUM Blood specimen (specimen) 02/06/2014 3:35 AM EDT 02/06/2014 3:56 AM EDT Narrative Resulting Agency Comment Spec In Lab Steff Holland MD HEMATOLOGY ORDERABLE S NOLA LAMBERTIUM * (ABNORMAL) Basic Metabolic Panel (non-fasting) (02/06/2014 3:35 AM EDT) [facility] Glucose Lvl 121 60 - 199 mg/dL CERNER MILLENNIUM Comment:Diabetes: >=200 mg/d L plus symptoms BUN 7(L) 8 - 18 mg/dL CERNER MILLENNIUM Creatinine 0.63(L) 0.70 - 1.20 mg/dL CERNER MILLENNIUM Comment: Please note that the pediatric reference intervals supplied above were not validated at [facility]. Results from pediatric patients should be interpreted in conjunction to the patient's age, height and muscle mass. Sodium 140 135 - 145 mmol/L CERNER MILLENNIUM Potassium 3.8 3.5 - 5.0 mmol/L CERNER MILLENNIUM Comment: Please note: ??Patients with WBC >100,000 may have falsely elevated Potassium levels. ??For accurate Potassium quantification in these patients send serum separator tube (gold top) for subsequent determinations. ??Contact the Clinical Chemistry Laboratory if there are any questions. Chloride 103 98 - 107 mmol/L CERNER MILLENNIUM CO2 27 22 - 31 mmol/L CERNER MILLENNIUM Anion Gap 10 5 - 15 mmol/L CERNER MILLENNIUM Calcium 8.9 8.5 - 10.5 mg/dL CERNER MILLENNIUM Estimated GFR >60 >=60 CERNER MILLENNIUM Comment: This estimated GFR (eGFR) value was calculated using the MDRD equation which has been validated on patients between the ages of 18 and 70. The MDRD should not be used to assess kidney function in patients < 18 years of age or in patients with extremes of body mass, or in patients with acute kidney failure. This value should be multiplied by 1.2 for patients. For further information please copy and paste the following links into your internet browser. http://WePay/DHnkdep http://DoublePositive.Nanotecture/DHMCnkf Blood specimen (specimen) 02/06/2014 3:35 AM EDT 02/06/2014 3:56 AM EDT Narrative Resulting Agency Comment Spec In Lab Steff Holland MD CHEMISTRY ORDERABLES [facility] MILLENNIUM * (ABNORMAL) Differential, Automated (02/05/2014 3:21 AM EDT) Neutrophils % 73.4(H) 34.0 - 71.0 % CERNER MILLENNIUM Neutr Abs (ANC) 4.18 1.50 - 6.30 x10(3)/mc L CERNER MILLENNIUM Lymphocytes % 18.6(L) 19.0 - 53.0 % CERNER MILLENNIUM Lymphocytes Abs 1.1 1.0 - 3.6 x10(3)/mc L CERNER MILLENNIUM Monocytes % 6.9 4.0 - 13.0 % CERNER MILLENNIUM Monocyte Abs 0.4 0.2 - 1.0 x10(3)/mc L CERNER MILLENNIUM Eosinophils % 0.9 0.0 - 7.0 % CERNER MILLENNIUM Eosinophils Abs 0.0 0.0 - 0.5 x10(3)/mc L CERNER MILLENNIUM Basophils % 0.0 0.0 - 2.0 % CERNER MILLENNIUM Basophils Abs 0.0 0.0 - 0.2 x10(3)/mc L CERNER MILLENNIUM Immature Gran % 0.20 0.00 - 0.66 % CERNER MILLENNIUM Comment: Immature granulocytes(IG's)percentage and absolute count will include metamyelocytes, myelocytes, and promyelocytes. Blood smears from CBCs yielding IG's will be scanned manually for concordance. If this scan disagrees with the automated IG or if promyelocytes are noted, a manual differential will be performed. Fay Gran Abs 0.01 0.00 - 0.05 x10(3)/mc L CERNER MILLENNIUM Blood specimen (specimen) 02/05/2014 3:21 AM EDT 02/05/2014 3:40 AM EDT Narrative Resulting Agency Comment Spec In Lab Steff Holland MD HEMATOLOGY ORDERABLE S NOLA AGUILA * (ABNORMAL) Hemogram (02/05/2014 3:21 AM EDT) WBC 5.7 4.0 - 10.0 x10(3)/mcL CERNER MILLENNIUM RBC 3.53(L) 3.93 - 5.22 x10(6)/mcL CERNER MILLENNIUM Hemoglobin 10.1(L) 11.2 - 15.7 gm/dL CERNER MILLENNIUM Hematocrit 30.5(L) 34.0 - 45.0 % CERNER MILLENNIUM MCV 86.4 79.0 - 94.0 fL CERNER MILLENNIUM MCH 28.6 26.6 - 32.2 pg CERNER MILLENNIUM MCHC 33.1 32.0 - 36.5 gm/dL CERNER MILLENNIUM Platelets 154 145 - 370 x10(3)/mcL CERNER MILLENNIUM RDWSD 45.6 35.0 - 46.0 fL CERNER MILLENNIUM RDWCV 14.5(H) 10.9 - 14.4 % CERNER MILLENNIUM MPV 9.5 9.0 - 12.0 fL CERNER MILLENNIUM Blood specimen (specimen) 02/05/2014 3:21 AM EDT 02/05/2014 3:40 AM EDT Narrative Resulting Agency Comment Spec In Lab Steff Holland MD HEMATOLOGY ORDERABLE S NOLA AGUILA * Prothrombin Time (02/05/2014 3:21 AM EDT) PT 14.6 12.5 - 15.5 sec CERNER MILLENNIUM Comment: [facility] Transfusion Committee Guidelines: INR less than 2.0, PTT less than OR equal to 43.5 seconds, or Fibrinogen greater than or equal to 100 mg/dl indicate adequate procoagulant activity for hemostasis in patients without underlying bleeding disorders. INR 1.1 0.9 - 1.1 CERNER MILLENNIUM Blood specimen (specimen) 02/05/2014 3:21 AM EDT 02/05/2014 3:40 AM EDT Narrative Resulting Agency Comment Spec In Lab Steff Holland MD HEMATOLOGY ORDERABLE S NOLA AGUILA * (ABNORMAL) Basic Metabolic Panel (non-fasting) (02/05/2014 3:21 AM EDT) Glucose Lvl 122 60 - 199 mg/dL CERNER MILLENNIUM Comment:Diabetes: >=200 mg/d L plus symptoms BUN 9 8 - 18 mg/dL CERNER MILLENNIUM Creatinine 0.69(L) 0.70 - 1.20 mg/dL CERNER MILLENNIUM Comment: Please note that the pediatric reference intervals supplied above were not validated at [facility]. Results from pediatric patients should be interpreted in conjunction to the patient's age, height and muscle mass. Sodium 141 135 - 145 mmol/L CERNER MILLENNIUM Potassium 4.2 3.5 - 5.0 mmol/L CERNER MILLENNIUM Comment: Please note: ??Patients with WBC >100,000 may have falsely elevated Potassium levels. ??For accurate Potassium quantification in these patients send serum separator tube (gold top) for subsequent determinations. ??Contact the Clinical Chemistry Laboratory if there are any questions. Chloride 106 98 - 107 mmol/L CERNER MILLENNIUM CO2 25 22 - 31 mmol/L CERNER MILLENNIUM Anion Gap 10 5 - 15 mmol/L CERNER MILLENNIUM Calcium 8.3(L) 8.5 - 10.5 mg/dL CERNER MILLENNIUM Comment:result rechecked-AFP Estimated GFR >60 >=60 CERNER MILLENNIUM Comment: This estimated GFR (eGFR) value was calculated using the MDRD equation which has been validated on patients between the ages of 18 and 70. The MDRD should not be used to assess kidney function in patients < 18 years of age or in patients with extremes of body mass, or in patients with acute kidney failure. This value should be multiplied by 1.2 for patients. For further information please copy and paste the following links into your internet browser. http://[email or web address]/DHnkdep [email or web address] Blood specimen (specimen) 02/05/2014 3:21 AM EDT 02/05/2014 3:40 AM EDT Narrative Resulting Agency Comment Spec In Lab Steff Holland MD CHEMISTRY ORDERABLES [facility] ShopTapENNIUM * Surgical Pathology Report (02/04/2014 1:10 PM EDT) Surgical Pathology Report ? [facility] ? Provider: ?? STEFF HOLLAND ? Pt. Name: ?? LUKE-JOHANA Mariaelena, ALYSSA Hanna ? Acc #: ?[id number] ?Pt. ? Col Date: ?? 02/04/2014 ? /Sex: ?1945,(68 ? years),Female ? Rec Date: ?? 02/04/2014 ? LOC: ?3WST ? SURGICAL PATHOLOGY ? ---Pathologic Diagnosis--- ? A - Left femoral head, osteoarthitis. ?Gross surgical pathology examination. ? CR-0 ? 02/04/14 ? SHB ? 02/05/14 Verified by: ? Kenya Self DO ? Pathologist ? (Electronic Signature) ? The attending pathologist whose signature appears on this report has ? reviewed all diagnostic slides and has edited the gross and/or ? microscopic portion of the report in rendering the final pathologic ? diagnosis. ? ---Gross Description--- ? A - Labeled/Fixative: Left femoral head, fresh. ? Quantity/Size: Single, 4.8 x 4.5 x 4.0 cm. ? Tissue Description: Partially flattened femoral head and attached 4.3 x 2.8 ? x 0.7 cm portion of femoral neck. ? Margin: Red trabecular bone. ? Articular surface: Variegated figueroa to red-brown and essentially granular. ? Eburnation: Present. ? Osteophytes: Present forming a collar around the periphery. ? Cut surface: Predominantly yellow trabecular bone. ? Subchondral Sclerosis: Absent. ? Subchondral Cysts: Absent. ? Sections/Processi ng: No sections are submitted. ??Gross examination only. ? shb ? ---Clinical Information--- ? Specimen Submitted: ? A - Left femoral head ? Clinical History: ? AMBER ? Clinical Diagnosis: ? Same NOLA KRYSTYNACRISTOBAL 02/04/2014 1:10 PM EDT Steff Holland MD PATHOLOGY/CYTOLOGY O RDERANOE Performing Organization Address [facility] Co de Phone Number NOLA AGUILA * Specimen to Pathology (surgical or derm) (02/04/2014 1:10 PM EDT) AP Specimen 02/04/2014 1:10 PM EDT 02/04/2014 1:10 PM EDT Narrative NOLA KRYSTYNACRISTOBAL - 02/04/2014 1:10 PM EDT Specimen requisition ordered. ??Separate Pathology report to follow Steff Holland MD PATHOLOGY/CYTOLOGY O RDERANOE Performing Organization Address [facility] Co de Phone Number NOLA AGUILA documented in this encounter Visit Diagnoses Diagnosis Pain in limb OA (osteoarthritis) Osteoarthrosis, unspecified whether generalized or localized, unspecified site 02/04 Dr. 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 Morales 2009 Hip joint replacement by other means 02/04 Dr. Holland Left Anterior AMBER Primary localized osteoarthrosis, pelvic region and thigh documented in this encounter Administered Medications Inactive Administered Medications - up to 3 most recent administrations Medication Order MAR Action Action Date Dose Rate Site acetaminophen (TYLENOL) tablet 1,000 mg 1,000 mg, Oral, EVERY 8 HOURS SCHEDULED, First dose on Sun02/04/14 at 1515, Until Discontinued, Maximum dose of acetaminophen is 4000 mg from all sources in 24 hours., Routine Given 02/05/2014 1:07 PM EDT 1,000 mg Given 02/05/2014 6:05 AM EDT 1,000 mg Given 02/04/2014 10:02 PM EDT 1,000 mg acetaminophen (TYLENOL) tablet 650 mg 650 mg, Oral, ONCE, 1 dose, On Sun02/04/14 at 1045, Administer on arrival in Same Day Program, Day of Surgery (Day of Procedure), Routine Given 02/04/2014 10:35 AM EDT 650 mg ceFAZolin (ANCEF) 2g in dextrose 5% 50 mL 2 g, Intravenous, EVERY 8 HOURS, 3 doses, First dose on Sun02/04/14 at 2000, Last dose on Sun02/05/14 at 1200, Adjust to 4 hours from intraoperative dose. * Beta-lactam based antibiotics (eg. Ampicillin, Cefazolin, Aztreonam) should be administered within 4 hours of the preceding intraoperative dose. * Vancomycin, Flouroquinolones, Clindamycin, Gentamicin, and Metronidazole should be administered within 8 hours of the preceding intraoperative dose., Recovery (Recovery-Hospital Unit), Indication for (Active or Suspected): Prophylaxis Given 02/05/2014 1:08 PM EDT 2 g Given 02/05/2014 5:54 AM EDT 2 g Given 02/04/2014 9:11 PM EDT 2 g clobetasol (TEMOVATE) 0.05 % cream 1 Application 1 Application , Topical, 2 TIMES DAILY, First dose on Sun02/04/14 at 2100, Until Discontinued Given 02/04/2014 10:04 PM EDT 1 Application cyanocobalamin (vitamin B-12) tablet 1,000 mcg 1,000 mcg, Oral, DAILY, First dose on Sun02/05/14 at 0900, Until Discontinued, Routine Given 02/06/2014 8:48 AM EDT 1,000 mcg Given 02/05/2014 8:34 AM EDT 1,000 mcg esomeprazole (NexIUM) capsule 20 mg 20 mg, Oral, DAILY, First dose on Sun02/05/14 at 0900, Until Discontinued, Therapeutic interchange for omeprazole (PRILOSEC), Routine Given 02/06/2014 7: 23 AM EDT 20 mg Given 02/05/2014 10:12 AM EDT 20 mg famotidine (PEPCID) tablet 20 mg 20 mg, Oral, ONCE, 1 dose, On Sun02/05/14 at 1030, Routine Given 02/05/2014 11:10 AM EDT 20 mg gabapentin (NEURONTIN) capsule 300 mg 300 mg, Oral, ONCE, 1 dose, On Sun02/04/14 at 1045, Administer on arrival in Same Day Program, Day of Surgery (Day of Procedure), Routine Given 02/04/2014 10:35 AM EDT 300 mg HYDROmorphone (DILAUDID) 1 mg/mL CUSTOMER OPERATIONS MANAGER 30 mL Intravenous, CUSTOMER OPERATIONS MANAGER ONLY, Starting on Sun02/04/14 at 1515, Until Sun02/05/14 at 0523, Recovery (Recovery-Hospital Unit) New Syringe/Cartridge 02/04/2014 3:04 PM EDT 30 mg HYDROmorphone (DILAUDID) tablet 2 mg 2 mg, Oral, EVERY 4 HOURS PRN, Starting on Sun02/05/14 at 0553, Until Sun02/06/14 at 1627, Pain, for mild pain, May give an additional 2 mg one time if pain not relieved in 30-60 minutes., Routine Given 02/05/2014 6:05 AM EDT 2 mg HYDROmorphone (DILAUDID) tablet 4 mg 4 mg, Oral, EVERY 4 HOURS PRN, Starting on Sun02/05/14 at 0553, Until Sun02/06/14 at 1627, Pain, for moderate pain, May give an additional 2 mg one time if pain not relieved in 30-60 minutes. , Routine Given 02/06/2014 11:55 AM EDT 4 mg Given 02/06/2014 5:23 AM EDT 4 mg Given 02/06/2014 12:32 AM EDT 4 mg lactated ringers infusion 1,000 mL 1,000 mL, at 100 mL/hr, Intravenous, CONTINUOUS, Starting on Sun02/04/14 at 1045, Until Sun02/04/14 at 1449, Day of Surgery (Day of Procedure) New Bag 02/04/2014 1:19 PM EDT mL New Bag 02/04/2014 11:06 AM EDT 1,000 mLs 100 mL/hr mometasone (ASMANEX) aerosol 2 puff 2 puff (440 mcg), Inhalation, 2 TIMES DAILY, First dose on Sun02/04/14 at 2100, Until Discontinued, Therapeutic interchange for fluticasone (FLOVENT) 220 mcg/actuation 2 puff twice daily, Routine Given 02/06/2014 9:00 AM EDT 2 puffs Given 02/05/2014 8:37 PM EDT 2 puffs Given 02/05/2014 8:35 AM EDT 2 puffs ondansetron (ZOFRAN) injection 4 mg 4 mg, Intravenous, EVERY 30 MIN PRN, Starting on Sun02/04/14 at 1402, Until Sun02/04/14 at 1850, Nausea, May repeat 4 mg once in 30 minutes. Consider prochlorperazine if ineffective., PACU Recovery Given 02/04/2014 6:14 PM EDT 4 mg ondansetron (ZOFRAN) tablet 4 mg 4 mg, Oral, EVERY 8 HOURS PRN, Starting on Sun02/04/14 at 1449, Until Sun02/06/14 at 1627, Nausea, Vomiting, If multiple antiemetics are ordered, use ondansetron first. PO Preferred. If patient unable to take PO, may give IV if ordered. May repeat times one in 45 minutes if ineffective., Recovery (Recovery-Hospital Unit), Routine Given 02/05/2014 7:46 PM EDT 4 mg Given 02/05/2014 7:45 AM EDT 4 mg polyethylene glycol (MIRALAX) packet 17 g 17 g, Oral, 2 TIMES DAILY, First dose on Sun02/04/14 at 2100, Until Discontinued, Administer if needed per patient's routine or if no bowel movement within 48 hours, Routine Given 02/04/2014 10:02 PM EDT 17 g prochlorperazine (COMPAZINE) tablet 10 mg 10 mg, Oral, ONCE, 1 dose, On Anna 02/05/14 at 1500, Maximum dose: 50 mg / 24 hrs, Routine Given 02/05/2014 3:03 PM EDT 10 mg senna-docusate (PERICOLACE) 8.6-50 mg per tablet 1-4 tablet 1-4 tablet, Oral, 2 TIMES DAILY, First dose on Sun02/04/14 at 2100, Until Discontinued, Start with 1 tablet or liquid equivalent orally twice daily and titrate up to achieve: 1. One bowel movement at least every 48 hours, AND 2. Without straining, Routine Given 02/05/2014 8:37 PM EDT 2 tablets Given 02/04/2014 10:02 PM EDT 1 tablet sertraline (ZOLOFT) tablet 50 mg 50 mg, Oral, DAILY, First dose on Sun02/05/14 at 0900, Until Discontinued, Routine Given 02/06/2014 8:48 AM EDT 50 mg Given 02/05/2014 8:35 AM EDT 50 mg sodium chloride 0.9 % flush 5 mL 5 mL, Intravenous, EVERY 12 HOURS, First dose on Sun02/04/14 at 1045, Until Discontinued, Day of Surgery (Day of Procedure), Routine Given by Other 02/04/2014 10:45 AM EDT 5 mLs sodium chloride 0.9 % flush 5 mL 5 mL, Intravenous, 2 TIMES DAILY, First dose on Sun02/04/14 at 2100, Until Discontinued, Routine Given 02/06/2014 8:48 AM EDT 5 mLs Given 02/05/2014 8:40 PM EDT 5 mLs Given 02/05/2014 8:35 AM EDT 5 mLs sodium chloride 0.9% infusion 1,000 mL, at 100 mL/hr, Intravenous, CONTINUOUS, Starting on Sun02/04/14 at 1515, Until Sun02/06/14 at 1627 New Bag 02/05/2014 12:56 AM EDT 1,000 mL s 100 mL/hr New Bag 02/04/2014 3:00 PM EDT 1,000 mLs 100 mL/hr warfarin (COUMADIN) tablet 5 mg 5 mg, Oral, ONCE, 1 dose, On Sun02/04/14 at 2100, Routine Given 02/04/2014 10:02 PM EDT 5 mg warfarin (COUMADIN) tablet 5 mg 5 mg, Oral, EVERY EVENING, First dose (after last reorder) on Sun02/05/14 at 1700, Until Discontinued, Routine Given 02/05/2014 4:31 PM EDT 5 mg documented in this encounter Active and Recently Administered Medications Times are shown in EDT. Scheduled Medication Order 02/04/2014 02/05/2014 02/06/2014 acetaminophen (TYLENOL) tablet 1,000 mg 1,000 mg, Oral, EVERY 8 HOURS SCHEDULED, First dose on Sun02/04/14 at 1515, Until Discontinued, Maximum dose of acetaminophen is 4000 mg from all sources in 24 hours., Routine 1830 (Not Given - Provider: Sofia Mills RN - Reason: See comment - Comment: Given preop @ 1035)2202 (Given - Provider: Sofia Mills RN) 0605 (Given - Provider: Sofia Mills RN)1307 (Given - Provider: Marcelina Liu RN - Comment: 08/25 at rest, 01/22 when moving)2200 (Not Given - Provider: Lindsey Murphy RN - Reason: Patient/family refused) 0600 (Not Given - Provider: Lindsey Murphy RN - Reason: Patient/family refused)1400 (Not Given - Provider: Ladonna Daugherty RN - Reason: Patient/family refused) acetaminophen (TYLENOL) tablet 650 mg (COMPLETED) 650 mg, Oral, ONCE, 1 dose, On Sun02/04/14 at 1045, Administer on arrival in Same Day Program, Day of Surgery (Day of Procedure), Routine 1035 (Given - Provider: Chey Welch RN) ceFAZolin (ANCEF) 2g in dextrose 5% 50 mL (COMPLETED) 2 g, Intravenous, ONCE, 1 dose, On Sun02/04/14 at 1045, To be administered upon arrival to the OR within one hour prior to incision., Day of Surgery (Day of Procedure), Indication for (Active or Suspected): Prophylaxis 1231 (Given - Provider: Kingsley Degroot CRNA) ceFAZolin (ANCEF) 2g in dextrose 5% 50 mL (COMPLETED) 2 g, Intravenous, EVERY 8 HOURS, 3 doses, First dose on Sun02/04/14 at 2000, Last dose on Anna 02/05/14 at 1200, Adjust to 4 hours from intraoperative dose. * Beta-lactam based antibiotics (eg. Ampicillin, Cefazolin, Aztreonam) should be administered within 4 hours of the preceding intraoperative dose. * Vancomycin, Flouroquinolones, Clindamycin, Gentamicin, and Metronidazole should be administered within 8 hours of the preceding intraoperative dose., Recovery (Recovery-Hospital Unit), Indication for (Active or Suspected): Prophylaxis 2110 (Given - Provider: Sofia Mills RN) 0554 (Given - Provider: Sofia Mills RN)1308 (Given - Provider: Marcelina Liu RN) clobetasol (TEMOVATE) 0.05 % cream 1 Application (CANCELED) 1 Application , Topical, 2 TIMES DAILY, First dose on Sun02/04/14 at 2100, Until Discontinued 2203 (Given - Provider: Sofia Mills RN) 0834 (Not Given - Provider: Marcelina Liu RN - Reason: Patient/family refused - Comment: applies once a night)2037 (Not Given - Provider: Lindsey Murphy RN - Reason: Patient/family refused) 0900 (Not Given - Provider: Ladonna Daugherty RN - Reason: Patient/family refused) cyanocobalamin (vitamin B-12) tablet 1,000 mcg (CANCELED) 1,000 mcg, Oral, DAILY, First dose on Sun02/05/14 at 0900, Until Discontinued, Routine 0834 (Given - Provider: Marcelina Liu RN) 0848 (Given - Provider: Ladonna Daugherty RN) esomeprazole (NexIUM) capsule 20 mg (CANCELED) 20 mg, Oral, DAILY, First dose on Sun02/05/14 at 0900, Until Discontinued, Therapeutic interchange for omeprazole (PRILOSEC), Routine 1012 (Given - Provider: Marcelina Liu RN - Comment: first pill dropped on floor, new pill sent up) 0723 (Given - Provider: Ladonna Daugherty RN)0900 (Not Given - Provider: Ladonna Daugherty RN - Reason: Contraindicated) famotidine (PEPCID) tablet 20 mg (COMPLETED) 20 mg, Oral, ONCE, 1 dose, On Sun02/05/14 at 1030, Routine 1110 (Given - Provider: Marcelina Liu RN) gabapentin (NEURONTIN) capsule 300 mg (COMPLETED) 300 mg, Oral, ONCE, 1 dose, On Sun02/04/14 at 1045, Administer on arrival in Same Day Program, Day of Surgery (Day of Procedure), Routine 1035 (Given - Provider: Chey Welch RN) mometasone (ASMANEX) aerosol 2 puff (CANCELED) 2 puff (440 mcg), Inhalation, 2 TIMES DAILY, First dose on Sun02/04/14 at 2100, Until Discontinued, Therapeutic interchange for fluticasone (FLOVENT) 220 mcg/actuation 2 puff twice daily, Routine 220 (Given - Provider: Sofia Mills RN) 0835 (Given - Provider: Marcelina Liu RN)2037 (Given - Provider: Lindsey Murphy, DALILA) 0900 (Given - Provider: Ladonna Daugherty RN) polyethylene glycol (MIRALAX) packet 17 g 17 g, Oral, 2 TIMES DAILY, First dose on Sun02/04/14 at 2100, Until Discontinued, Administer if needed per patient's routine or if no bowel movement within 48 hours, Routine 220 (Given - Provider: Sofia Mills RN) 0831 (Not Given - Provider: Marcelina Liu RN - Reason: Patient/family refused)2100 (Not Given - Provider: Lindsey Murphy RN - Reason: Patient/family refused) 0900 (Not Given - Provider: Ladonna Daugherty RN - Reason: Patient/family refused) prochlorperazine (COMPAZINE) tablet 10 mg (COMPLETED) 10 mg, Oral, ONCE, 1 dose, On Sun02/05/14 at 1500, Maximum dose: 50 mg / 24 hrs, Routine 1503 (Given - Provider: Miryam Saldivar, DALILA) senna-docusate (PERICOLACE) 8.6-50 mg per tablet 1-4 tablet 1-4 tablet, Oral, 2 TIMES DAILY, First dose on Sun02/04/14 at 2100, Until Discontinued, Start with 1 tablet or liquid equivalent orally twice daily and titrate up to achieve: 1. One bowel movement at least every 48 hours, AND 2. Without straining, Routine 220 (Given - Provider: Sofia Mills RN) 0831 (Not Given - Provider: Marcelina Liu RN - Reason: Patient/family refused)2036 (Given - Provider: Lindsey Murphy, DALILA) 0900 (Not Given - Provider: Ladonna Daugherty, DALILA - Reason: Patient/family refused) sertraline (ZOLOFT) tablet 50 mg (CANCELED) 50 mg, Oral, DAILY, First dose on Sun02/05/14 at 0900, Until Discontinued, Routine 0835 (Given - Provider: Marcelina Liu RN) 0848 (Given - Provider: Ladonna Daugherty, DALILA) sodium chloride 0.9 % flush 5 mL (CANCELED) 5 mL, Intravenous, EVERY 12 HOURS, First dose on Sun02/04/14 at 1045, Until Discontinued, Day of Surgery (Day of Procedure), Routine 1045 (Given by Other - Provider: Ashly Dong RN - Comment: Done by [facility] Nurse.) sodium chloride 0.9 % flush 5 mL (CANCELED) 5 mL, Intravenous, 2 TIMES DAILY, First dose on Sun02/04/14 at 2100, Until Discontinued, Routine 7 (Given - Provider: Sofia Mills RN) 0835 (Given - Provider: Marcelina Liu RN)2040 (Given - Provider: Lindsey Murphy, DALILA) 0848 (Given - Provider: Ladonna Daugherty, DALILA) tranexamic acid (CYKLOKAPRON) 1,060 mg in sodium chloride 0.9% 110.6 mL (COMPLETED) 1,060 mg (15 mg/kg/dose ? 70.9 kg), Intravenous, ONCE, 1 dose, On Sun02/04/14 at 1045, Administer over 30 Minutes, Dilute tranexamic acid dose in 100 mL sodium chloride 0.9% prior to administration. For patients less than or equal to 200 kg infuse over 30 minutes. For patients greater than 200 kg infuse over 60 minutes., Day of Surgery (Day of Procedure) 1238 (New Bag - Provider: Kingsley Degroot, BODY TRIMMER) warfarin (COUMADIN) tablet 5 mg (COMPLETED) 5 mg, Oral, ONCE, 1 dose, On Sun02/04/14 at 2100, Routine 2202 (Given - Provider: Sofia Mills, DALILA) warfarin (COUMADIN) tablet 5 mg 5 mg, Oral, EVERY EVENING, First dose (after last reorder) on Anna 02/05/14 at 1700, Until Discontinued, Routine 1631 (Given - Provider: Marcelina Liu, RN) Continuous Medication Order 02/04/2014 02/05/2014 02/06/2014 HYDROmorphone (DILAUDID) 1 mg/mL CUSTOMER OPERATIONS MANAGER 30 mL (CANCELED) Intravenous, CUSTOMER OPERATIONS MANAGER ONLY, Starting on Sun02/04/14 at 1515, Until Anna 02/05/14 at 0523, Recovery (Recovery-Hospital Unit) 1504 (New Syringe/Cartridge - Provider: Ashly Dong RN) lactated ringers infusion 1,000 mL (CANCELED) 1,000 mL, at 100 mL/hr, Intravenous, CONTINUOUS, Starting on Sun02/04/14 at 1045, Until Sun02/04/14 at 1449, Day of Surgery (Day of Procedure) 1106 (New Bag - Provider: Chey Welch RN)1238 (Anesthesia Volume Adjustment - Provider: Kingsley Degroot CRNA)1319 (New Bag - Provider: Kandice Delaney CRNA) sodium chloride 0.9% infusion (CANCELED) 1,000 mL, at 100 mL/hr, Intravenous, CONTINUOUS, Starting on Sun02/04/14 at 1515, Until Sun02/06/14 at 1627 1500 (New Bag - Provider: Ashly Dong RN) 0056 (New Bag - Provider: Sofia Mills RN) PRN Medication Order 02/04/2014 02/05/2014 02/06/2014 bacitracin injection (CANCELED) ONCE PRN, Starting on Sun02/04/14 at 1301, Until Sun02/04/14 at 1449, Intra-Operative (Intra-Procedure), Routine 1301 (Given - Provider: Steff Holland MD - Comment: 50,000 units bacitracin in 3,000 ml normal saline for irrigation used throughout case.) bisacodyl (DULCOLAX) suppository 10 mg 10 mg, Rectal, DAILY PRN, Starting on Sun02/04/14 at 1902, Until Sun02/06/14 at 1627, Constipation, Administer if needed per patient's routine or if no bowel movement within 48 hours, Routine BUpivacaine-EPINEPHrine 0.25 %-1:200,000 injection (CANCELED) ONCE PRN, Starting on Sun02/04/14 at 1301, Until Sun02/04/14 at 1449, Intra-Operative (Intra-Procedure), Routine 1301 (Given - Provider: Steff Holland MD - Comment: Injected to left hip pre-incision.) HYDROmorphone (DILAUDID) tablet 2 mg(Linked Group 1) 2 mg, Oral, EVERY 4 HOURS PRN, Starting on Anna 02/05/14 at 0553, Until Sun02/06/14 at 1627, Pain, for mild pain, May give an additional 2 mg one time if pain not relieved in 30-60 minutes., Routine 06 (Given - Provider: Sofia Mills RN)1009 (See Alternative - Provider: Marcelina Liu RN)163 (See Alternative - Provider: Marcelina Liu RN)2036 (See Alternative - Provider: Lindsey Murphy RN) 003 (See Alternative - Provider: Lindsey Murphy RN)0523 (See Alternative - Provider: Lindsey Murphy RN)1155 (See Alternative - Provider: Ladonna Daugherty RN) HYDROmorphone (DILAUDID) tablet 4 mg (CANCELED)(Linked Group 1) 4 mg, Oral, EVERY 4 HOURS PRN, Starting on Anna 02/05/14 at 0553, Until Sun02/06/14 at 1627, Pain, for moderate pain, May give an additional 2 mg one time if pain not relieved in 30-60 minutes. , Routine 0605 (See Alternative - Provider: Sofia Mills RN)1009 (Given - Provider: Marcelina iLu RN - Comment: 2/10 at rest, 6-7/10 when moving)163 (Given - Provider: Marcelina Liu RN - Comment: 4/5 when moving, 2/10 at rest)2036 (Given - Provider: Lindsey Murphy RN) 003 (Given - Provider: Lindsey M Jeffrey, RN)0523 (Given - Provider: Lindsey Murphy, RN)1155 (Given - Provider: Ladonna Daugherty, DALILA) ondansetron (ZOFRAN) injection 4 mg (CANCELED) 4 mg, Intravenous, EVERY 30 MIN PRN, Starting on Sun02/04/14 at 1402, Until Sun02/04/14 at 1850, Nausea, May repeat 4 mg once in 30 minutes. Consider prochlorperazine if ineffective., PACU Recovery 181 (Given - Provider: Ashly Dong, RN) ondansetron (ZOFRAN) tablet 4 mg (CANCELED)(Linked Group 2) 4 mg, Oral, EVERY 8 HOURS PRN, Starting on Sun02/04/14 at 1449, Until Sun02/06/14 at 1627, Nausea, Vomiting, If multiple antiemetics are ordered, use ondansetron first. PO Preferred. If patient unable to take PO, may give IV if ordered. May repeat times one in 45 minutes if ineffective., Recovery (Recovery-Hospital Unit), Routine 0745 (Given - Provider: Sofia Mills, DALILA)1946 (Given - Provider: Lindsey Murphy, DALILA) Linked Groups Order Group 1: HYDROmorphone (DILAUDID) tablet 2 mgJump to med 2 mg, Oral, EVERY 4 HOURS PRN, Starting on Anna 02/05/14 at 0553, Until Sun02/06/14 at 1627, Pain, for mild pain, May give an additional 2 mg one time if pain not relieved in 30-60 minutes., Routine Or HYDROmorphone (DILAUDID) tablet 4 mg (CANCELED)Jump to med 4 mg, Oral, EVERY 4 HOURS PRN, Starting on Anna 02/05/14 at 0553, Until Sun02/06/14 at 1627, Pain, for moderate pain, May give an additional 2 mg one time if pain not relieved in 30-60 minutes. , Routine Or HYDROmorphone (DILAUDID) tablet 6 mg (CANCELED) 6 mg, Oral, EVERY 4 HOURS PRN, Starting on Anna 02/05/14 at 0553, Until Sun02/06/14 at 1627, Pain, for severe pain, May give an additional 2 mg one time if pain not relieved in 30-60 minutes. , Routine Group 2: ondansetron (ZOFRAN) tablet 4 mg (CANCELED)Jump to med 4 mg, Oral, EVERY 8 HOURS PRN, Starting on Sun02/04/14 at 1449, Until Sun02/06/14 at 1627, Nausea, Vomiting, If multiple antiemetics are ordered, use ondansetron first. PO Preferred. If patient unable to take PO, may give IV if ordered. May repeat times one in 45 minutes if ineffective., Recovery (Recovery-Hospital Unit), Routine Or ondansetron (ZOFRAN) injection 4 mg (CANCELED) 4 mg, Intravenous, EVERY 8 HOURS PRN, Starting on Sun02/04/14 at 1449, Until Sun02/06/14 at 1627, Nausea, May repeat times one in 30 minutes if ineffective, Recovery (Recovery-Hospital Unit) documented in this encounter Care Teams Yarn Wrapper Relationship Specialty Start Date End Date Nirav Turner MD [address] [place] [address] PCP - General 06/07/10 03/24/18 documented as of this encounter
--- OUTSIDE RECORDS SUMMARY | 2024-01-25 00:29 | XMS_ITS | Encounter Summary ---
Author Organization [facility] [place] [address] Care Team Providers Care Painter Spring Name Role Phone Jamarcus Rodriguez MD Primary Care Provider [phone] Reason for Visit * Reason Comments Left Hip Pain Encounter Details Date Type Department Care Team (Late st Contact Info) Description 02/02/2014 2:30 PM EDT Office [place] [address] Steff Shukla MD [address] [place] [address] Pain in limb; Debility; DJD (degenerative joint disease) of hip Discharge Disposition: Home Social History Tobacco Use [...] Sign Reading Time Taken Comments Blood Pressure 161/71 02/02/2014 3:09 PM EDT Pulse 79 02/02/2014 3:09 PM EDT Temperature - - Respiratory Rate - - Oxygen Saturation - - Inhaled Oxygen Concentration - - Weight 71.5 kg (157 lb 10 oz) 02/02/2014 3:09 PM EDT Height 157.5 cm (5' 2) 02/02/2014 3:09 PM EDT Body Mass Index 28.83 02/02/2014 3:09 PM EDT documented in this encounter Progress Notes * Marley Tom RN - 02/02/2014 4:17 PM EDT This note is recorded by Marley Tom RN acting as a scribe for Steff Shukla MD. PREOPERATIVE VISIT HISTORY OF PRESENT ILLNESS: Very pleasant 68 year-old female with severe osteoarthritis of the hip.I have seen the patient previously and the plan is for left total hip arthroplasty. Please refer brielle previous note for the full history. The patient reports that the pain has not changed and has actually gotten a bit worse. She reviewedthe shared decision making video and is confident in the decision to go forward with total joint arthroplasty. PHYSICAL EXAMINATION: Exam is previously documented in my note and is unchanged. LABORATORY DATA: Hgb: 13.5 Platelets: 200 INR: 0.9 Urine culture pending. Type and screen done. ASSESSMENT/PLAN: A 68 year-old female who presents for preoperative appointment today. I had a longdiscussion with the patient regarding the risks and benefits of total hip arthroplasty. We talked about bleeding, infection, need for further surgery, fracture, blood clots, implant failure, blood transfusion, and the complications of anesthesia up to and including . I used total hip implants to demonstrate for them how we perform the procedure and all of their questions were answered. I didreview the history and physical today which says the patient is cleared for surgery and has no specific recommendations for further testing. I reviewed the labs and there were no issues with those. Informed consent was signed in the clinic today. We discussed DNR status and the patient is a full code. We will plan to use Coumadin for 4-6 weeks postoperatively for DVT prophylaxis. I discussed withthem the possible discharge scenarios including going home versus needing to go to a rehab facility. We will make that determination after seeing how well mobilization is progressing. I have personally evaluated the patient and agree with the above note as recorded by Marley Tom RN. Attending Note. I have seen the patient, I have reviewed the care plan as described, and I agree (with any changes or additions outlined below). This patient has failed with non-operative treatment modalities for symptoms associated with hip OA. The patient is now limited by pain, inability to perform activities of daily living, and has exhausted all reasonable options for treating hip OA non-surgically. We will proceed with total hip arthroplasty, we will use an anterior approach and we spent some time talking about the specifics of this. The postoperative recovery, and coagulation, and anesthesia options were discussed, questions answered. The patient understands benefits of arthroplasty as diminution of pain and improvement in motor function. Also understands risks and consequences associated with the surgery including infection, blood clots, fracture, dislocation, leg length inequality, stiffness, reoperation, possibility of ongoing limp, nerve or blood vessel injury which can lead to numbness or loss of movement, reoperation the future, implant failure, and the risk of anesthesia including . Shared medical decision-making was used to discuss and help the patient arrive at preference-sensitive treatment options including anesthesia, postoperative anticoagulation, implant type, and surgical approach as well as discharge options including institutional versus home or self-care. We will use Coumadin for DVT prophylaxis, she plans to go home after surgery. Steff Shukla MD documented in this encounter Plan of Treatment Upcoming Encounters Date Type Department Care Team (Late st Contact Info) Description 02/26/2024 10:15 AM EDT Office Visit Endocrinology at [facility] [place] [address] Cornell Harper MD [facility] [place] [address] documented as of this encounter Procedures Procedure Name Priority Date/Time Associated Diagnosis Comments URINE CULTURE Routine 02/02/2014 2:07 PM EDT Debility HEMOGRAM Routine 02/02/2014 11:17 AM EDT Pain in limb DIFFERENTIAL, AUTOMATED Routine 02/02/2014 11:17 AM EDT Pain in limb TYPE AND SCREEN, SDP (FUTURE SURGERY, [facility] SAME DAY PROGRAM ONLY) Routine 02/02/2014 11:17 AM EDT Pain in limb ABO/RH TYPING Routine 02/02/2014 11:17 AM EDT Pain in limb SEDIMENTATION RATE Routine 02/02/2014 11 :17 AM EDT Pain in limb PROTHROMBIN TIME Routine 02/02/2014 11:1 7 AM EDT Pain in limb CBC (WITH DIFF) Routine 02/02/2014 11:17 AM EDT Pain in limb ANTIBODY SCREEN Routine 02/02/2014 11:17 AM EDT Pain in limb CRP, CARDIAC RISK (HS CRP) Routine 02/02/2014 11:17 AM EDT Pain in limb PROTEIN, TOTAL Routine 02/02/2014 11:17 AM EDT Pain in limb ALBUMIN LEVEL Routine 02/02/2014 11:17 AM EDT Pain in limb BASIC METABOLIC PANEL (NON-FASTING) Routine 02/02/2014 11:17 AM EDT Pain in limb documented in this encounter Results * Urine culture Clean Catch Urine (02/02/2014 2:07 PM EDT) Urine Culture ? Patient Name: OZ DIALLO, ?Ordered By: STEFF SHUKLA ? ALYSSA Hanna ? MR#: [id number] ?LOC: ??3D ? /Sex: ??1945 (68 years), ? Female ? PROCEDURE: Urine Culture ?SOURCE: U CC ? COLLECTED: 02/02/2014 14:07 ? STARTED: 02/02/2014 14:28 ? FINAL REPORT ? Final Report ? Verified:2013 08:23 ? 1,000-9,000 cfu/ml Gram Positive organisms , probable contaminant ? [facility] Urine specimen obtained by clean catch procedure (specimen) 02/02/2014 2:07 PM EDT 02/02/2014 2:28 PM EDT Narrative Resulting Agency Comment Spec In Lab Steff Shukla MD MICROBIOLOGY - GENER AL ORDERABLES Performing Organization Address City/[facility] de Phone Number [facility]OLA LAMBERTI[facility] * Antibody screen (02/02/2014 11:17 AM EDT) Ab Screen Interp Negative [facility] LAM[facility]ERT[facility] Expires at [id number] on: [id number] [facility] Blood specimen (specimen) 02/02/2014 11:17 AM EDT 02/02/2014 11:38 AM EDT Narrative Resulting Agency Comment Spec In Lab Steff Shukla MD BLOOD BANK LAB ORDER PATRICIA Performing Organization Address City/[facility] de Phone Number CERMITCHELL LAMBERTIUM * ABO/Rh Typing (02/02/2014 11:17 AM EDT) ABORH Type A Pos [facility]CHELL LAMBERT[facility] Blood specimen (specimen) 02/02/2014 11:17 AM EDT 02/02/2014 11:38 AM EDT Narrative Resulting Agency Comment Spec In Lab Steff Shukla MD BLOOD BANK LAB ORDER PATRICIA Performing Organization Address City/[facility] de Phone Number [facility]ER[facility]CHELL L[facility]ERT[facility] * Differential, Automated (02/02/2014 11:17 AM EDT) Neutrophils % 62.3 34.0 - 71.0 % CERNER MILLENNIUM Neutr Abs (ANC) 3.86 1.50 - 6.30 x10(3)/mcL CERNER MILLENNIUM Lymphocytes % 28.8 19.0 - 53.0 % CERNER MILLENNIUM Lymphocytes Abs 1.8 1.0 - 3.6 x10(3)/mcL CERNER MILLENNIUM Monocytes % 7.3 4.0 - 13.0 % CERNER MILLENNIUM Monocyte Abs 0.4 0.2 - 1.0 x10(3)/mcL CERNER MILLENNIUM Eosinophils % 1.1 0.0 - 7.0 % CERNER MILLENNIUM Eosinophils Abs 0.1 0.0 - 0.5 x10(3)/mcL CERNER MILLENNIUM Basophils % 0.3 0.0 - 2.0 % CERNER MILLENNIUM Basophils Abs 0.0 0.0 - 0.2 x10(3)/mcL CERNER MILLENNIUM Immature Gran % 0.20 0.00 - 0.66 % CERNER MILLENNIUM Comment: Immature granulocytes(IG's)percentage and absolute count will include metamyelocytes, myelocytes, and promyelocytes. Blood smears from CBCs yielding IG's will be scanned manually for concordance. If this scan disagrees with the automated IG or if promyelocytes are noted, a manual differential will be performed. Fay Gran Abs 0.01 0.00 - 0.05 x10(3)/mcL CERNER MILLENNIUM Blood specimen (specimen) 02/02/2014 11:17 AM EDT 02/02/2014 11:34 AM EDT Narrative Resulting Agency Comment Spec In Lab Steff Shukla MD HEMATOLOGY ORDERABLE S [facility]ER[facility]CHELL GREENWOODEN[facility] * Hemogram (02/02/2014 11:17 AM EDT) WBC 6.2 4.0 - 10.0 x10(3)/mcL CERNER MILLENNIUM RBC 4.66 3.93 - 5.22 x10(6)/mcL CERNER MILLENNIUM Hemoglobin 13.5 11.2 - 15.7 gm/dL CERNER MILLENNIUM Hematocrit 40.2 34.0 - 45.0 % CERNER MILLENNIUM MCV 86.3 79.0 - 94.0 fL CERNER MILLENNIUM MCH 29.0 26.6 - 32.2 pg CERNER MILLENNIUM MCHC 33.6 32.0 - 36.5 gm/dL CERBANNER MILLENNIUM Platelets 200 145 - 370 x10(3)/mcL CERNER MILLENNIUM RDWSD 44.4 35.0 - 46.0 fL CERBANNER MILLENNIUM RDWCV 14.2 10.9 - 14.4 % CERBANNER MILLENNIUM MPV 9.8 9.0 - 12.0 fL [facility] MILLENNIUM Blood specimen (specimen) 02/02/2014 11:17 AM EDT 02/02/2014 11:34 AM EDT Narrative Resulting Agency Comment Spec In Lab Steff Shukla MD HEMATOLOGY ORDERABLE S Performing Organization Address [facility] de Phone Number [facility] * Sedimentation rate (02/02/2014 11:17 AM EDT) Sed Rate 11 0 - 20 mm/hr [facility] Blood specimen (specimen) 02/02/2014 11:17 AM EDT 02/02/2014 11:34 AM EDT Narrative Resulting Agency Comment Spec In Lab Steff Shukla MD HEMATOLOGY ORDERABLE S Performing Organization Address [facility] de Phone Number [facility] * High Sensitivity CRP (02/02/2014 11:17 AM EDT) CRP High Sens 2.8 mg/L [facility] MILLENNIUM Comment: Interpretations: 1) For accurate cardiac risk assessment, the average of 2 values >2 weeks apart should be obtained (ref 1&2). A value >10 mg/L indicates an inflammatory condition, concentrations >10 mg/L should not be used for cardiac risk assessment. ?<1.0 mg/L: low risk ?1.0 - 3.0 mg/L: moderate risk ?>3.0 mg/L: high risk groups for future cardiovascular events 2) The general reference range of apparently healthy individuals using this test is <5.0 mg/L (derived from the test package insert) References: 1. Mariam MARSHALL et. al. ??AHA/CDC Scientific Statement: Markers of Inflammation and Cardiovascular Disease. ??Circulation 2003; 107:499-511 2. Ridker PM. ??Clinical applications of C-reactive protein for cardiovascular disease detection and prevention. ??Circulation 2003; 107:363-369 Blood specimen (specimen) 02/02/2014 11:17 AM EDT 02/02/2014 11:34 AM EDT Narrative Resulting Agency Comment Spec In Lab Steff Shukla MD CHEMISTRY ORDERABLES Performing Organization Address [facility] Phone Number [facility] * Albumin Level (02/02/2014 11:17 AM EDT) Albumin 4.5 3.2 - 5.2 gm/dL [facility] Blood specimen (specimen) 02/02/2014 11:17 AM EDT 02/02/2014 11:34 AM EDT Narrative Resulting Agency Comment Spec In Lab Steff Shukla MD CHEMISTRY ORDERABLES Performing Organization Address [facility] Phone Number [facility] * Protein, total (02/02/2014 11:17 AM EDT) Pathologist [facility] Total Protein 7.4 6.4 - 8.3 gm/dL [facility] Blood specimen (specimen) 02/02/2014 11:17 AM EDT 02/02/2014 11:34 AM EDT Narrative Resulting Agency Comment Spec In Lab Steff Shukla MD CHEMISTRY ORDERABLES Performing Organization Address [facility] Phone Number [facility] * Prothrombin Time (02/02/2014 11:17 AM EDT) PT 12.6 12.5 - 15.5 sec [facility] Comment: [facility] Transfusion Committee Guidelines: INR less than 2.0, PTT less than OR equal to 43.5 seconds, or Fibrinogen greater than or equal to 100 mg/dl indicate adequate procoagulant activity for hemostasis in patients without underlying bleeding disorders. INR 0.9 0.9 - 1.1 CERNER MILLENNIUM Blood specimen (specimen) 02/02/2014 11:17 AM EDT 02/02/2014 11:34 AM EDT Narrative Resulting Agency Comment Spec In Lab Steff Shukla MD HEMATOLOGY ORDERABLE S CERNER MILLENNIUM * Basic Metabolic Panel (non-fasting) (02/02/2014 11:17 AM EDT) Glucose Lvl 102 60 - 199 mg/dL CERNER MILLENNIUM Comment:Diabetes: >=200 mg/d L plus symptoms BUN 14 8 - 18 mg/dL CERNER MILLENNIUM Creatinine 0.76 0.70 - 1.20 mg/dL CERNER MILLENNIUM Comment: Please note that the pediatric reference intervals supplied above were not validated at [facility]. Results from pediatric patients should be interpreted in conjunction to the patient's age, height and muscle mass. Sodium 141 135 - 145 mmol/L CERNER MILLENNIUM Potassium 3.7 3.5 - 5.0 mmol/L CERNER MILLENNIUM Comment: Please note: ??Patients with WBC >100,000 may have falsely elevated Potassium levels. ??For accurate Potassium quantification in these patients send serum separator tube (gold top) for subsequent determinations. ??Contact the Clinical Chemistry Laboratory if there are any questions. Chloride 104 98 - 107 mmol/L CERNER MILLENNIUM CO2 25 22 - 31 mmol/L [facility]ERN[facility] MILLENNIUM Anion Gap 12 5 - 15 mmol/L CERNER MILLENNIUM Calcium 9.7 8.5 - 10.5 mg/dL CERNER MILLENNIUM Estimated [...] the following links into your internet browser. [email or web address] Blood specimen (specimen) 02/02/2014 11:17 AM EDT 02/02/2014 11:34 AM EDT Narrative Resulting Agency Comment Spec In Lab Steff Shukla MD CHEMISTRY ORDERABLES [facility] documented in this encounter Visit Diagnoses Diagnosis Pain in limb Debility Debility, unspecified DJD (degenerative joint disease) of hip Osteoarthrosis, unspecified whether generalized or localized, pelvic region and thigh documented in this encounter Care Teams Painter Spring Relationship Specialty Start Date End Date Jamarcus Rodriguez MD [address] [place] [address] PCP - General 06/07/10 03/24/18 documented as of this encounter
--- OUTSIDE RECORDS SUMMARY | 2024-01-25 00:29 | XMS_ITS | Encounter Summary ---
Author Organization [facility] Address [facility] [place] [address] Care Team Providers Care Ticket Chopper Assembler Name Role Phone Jamarcus Rodriguez MD Primary Care Provider [phone] Encounter Details Date Type Department Care Team (Late st Contact Info) Description 12/25/2013 Orders [place] [address] Lance Holland MD [address] [place] [address] Status post right hip replacement (Primary Dx); Pain in left hip Social History Tobacco Use Types Packs/Day Years Used Date Smoking Tobacco: Former Comments:in college Alcohol Use Standard Drinks/Week Comments [...] 10:15 AM EDT Office Visit [place] [address] Cornell Harper MD [facility] [place] [address] documented as of this encounter Visit Diagnoses Diagnosis Status post right hip replacement- Primary Hip joint replacement by other means Pain in left hip Pain in joint, pelvic region and thigh documented in this encounter Care Teams Ticket Chopper Assembler Relationship Specialty Start Date End Date Jamarcus Rodriguez MD [address] [place] [address] PCP - General 06/07/10 03/24/18 documented as of this encounter
--- OUTSIDE RECORDS SUMMARY | 2024-01-25 00:29 | XMS_ITS | Encounter Summary ---
[place] [address] Care Team Providers Care Health Aid Name Role Phone Jamarcus Rodriguez MD Primary Care Provider [phone] Encounter Details Date Type Department Care Team (Latest Contact Info) Description 02/09/2014 Anti-Coag Telephone [place] [phone] Julio Rader RN Status post right hip replacement Social History Tobacco Use Types Packs/Day [...] as of this encounter Progress Notes * Julio Cuevas, RN - 02/09/2014 11:22 AM EDT Anticoagulation Therapy Nurse Visit Alyssa Burnham 1945 Surgeon: Lance Holland MD Indication: DVT Prophylaxis S/P Joint Replacement Duration of Treatment: 28 days ends:03/04/14 Therapeutic Range: 2.0-3.0 INR: 1.7 [facility] Patient states that she was instructed to continue 5 mg of warfarin QD over the weekend via on callresident. Patient presents with no signs of bleeding or bruising or signs of thromboembolic events related toprimary diagnosis above. Follow-up for re- evaluation and safety of continuing anticoagulation. Bleeding: Epistaxis Black tarry stools Gingival bleeding Increased bruising Hematuria Other: Hemoptysis x No bleeding / bruising noted Comments: Symptoms of recurring primary event: Chest pain Dyspnea Palpitations Headache Dizziness Edema Confusion Slurred speech Weakness Visual changes Tender/Red/Swollen extremities x No symptoms reported Other: Comments: Recent Medication Changes: no Comments: Have you missed any dose of Coumadin this past week? No Comments: Dietary Changes: No Comments: documented in this encounter Plan of Treatment Upcoming Encounters Date Type Department Care Team (Late st Contact Info) Description 02/26/2024 10:15 AM EDT Office Visit Endocrinology at [facility] [place] [address] Cornell Harper MD [facility] [place] [address] documented as of this encounter Procedures Procedure Name Priority Date/Time Associated Diagnosis Comments EXTERNAL LAB RESULTS Routine 02/09/2014 documented in this encounter Results * (ABNORMAL) External Lab Results (02/09/2014) POC INR 1.7([facility]) 0.9 - 1.1 Comment:[facility] Historical Provider CHEMISTRY ORDERAB LES documented in this encounter Visit Diagnoses Diagnosis Status post right hip replacement Hip joint replacement by other means documented in this encounter Care Teams Health Aid Relationship Specialty Start Date End Date Jamarcus Rodriguez MD [address] [place] [address] PCP - General 06/07/10 03/24/18 documented as of this encounter
--- OUTSIDE RECORDS SUMMARY | 2024-01-25 00:29 | XMS_ITS | Encounter Summary ---
Author Organization [facility] Address [facility] [place] [address] Care Team Providers Care Community Health Planning Director Name Role Phone Jamarcus Rodriguez MD Primary Care Provider [phone] Encounter Details Date Type Department Care Team (Late st Contact Info) Description 02/02/2014 11:40 AM EDT - 02/02/2014 11:59 PM EDT Hospital Encounter XRay at [address] [place] [id number] Pain in limb Social History Tobacco Use Types Packs/Day Years [...] as needed. 60 suppository 3 02/06/2014 01/22/2015 HYDROmorphone (DILAUDID) 2 mg tablet Take 1-3 tablets by mouth every 4 hours as needed for Pain. Take the smallest dose possible to control your pain. You may break the pills. As your pain improves, take smaller doses and space doses farther apart. 90 tablet 0 02/06/2014 02/06/2014 warfarin (COUMADIN) 5 mg tablet Take 1 [...] farther apart. 90 tablet 0 02/06/2014 02/17/2014 acetaminophen (TYLENOL) 650 mg CR tablet Take 650 mg by mouth every 8 hours as needed. Do not exceed 6 tabs in 24 hours 02/06/2014 documented as of this encounter Plan of Treatment Upcoming Encounters Date Type Department Care Team (Late st Contact Info) Description 02/26/2024 10:15 AM EDT Office Visit Endocrinology at [facility] [place] [address] Cornell Harper MD [facility] [place] [address] documented as of this encounter Procedures Procedure Name Priority Date/Time Associated Diagnosis Comments XR CHEST PA AND LATERAL Routine 02/02/2014 12:02 PM EDT Pain in limb documented in this encounter Results * XR chest routine PA & lateral (02/02/2014 12:02 PM EDT) Anatomical Region Laterality Modality Chest N/A Radiographic Shantal ging 02/02/2014 12:0 2 PM EDT Narrative 02/02/2014 1:52 PM EDT Examination CHEST ROUTINE 2 VIEWS Clinical History Preoperative; L hip replacement per patient Comparison None. Technique PA and lateral chest. Findings The lungs are clear. ??The pulmonary vasculature, leah, cardiac silhouette are unremarkable. ??The bony structures are unremarkable. Mild degenerative change to the spine. ?? Impression Normal chest radiograph. Film and interpretation reviewed by the attending Procedure Note Janneth Malcolm MD - 02/02/2014 Examination CHEST ROUTINE 2 VIEWS Clinical History Preoperative; L hip replacement per patient Comparison None. Technique PA and lateral chest. Findings The lungs are clear. The pulmonary vasculature, leah, cardiac silhouetteare unremarkable. The bony structures are unremarkable. Mild degenerativechange to the spine. Impression Normal chest radiograph. Film and interpretation reviewed by the attending Lance Holland MD IMG DX ORDERABLES documented in this encounter Visit Diagnoses Diagnosis Pain in limb documented in this encounter Care Teams Community Health Planning Director Relationship Specialty Start Date End Date Jamarcus Rodriguez MD [address] [place] [address] PCP - General 06/07/10 03/24/18 documented as of this encounter
--- OUTSIDE RECORDS SUMMARY | 2024-01-25 00:29 | XMS_ITS | Encounter Summary ---
Author Organization Formerly [facility] Address [facility] [place] [address] Care Team Providers Care Longwall Headgate Operator Name Role Phone Jamarcus Rodriguez MD Primary Care Provider [phone] Encounter Details Date Type Department Care Team (Late st Contact Info) Description 03/11/2014 9:37 AM EDT - 03/11/2014 11:59 PM EDT Hospital Encounter XRay at [address] [place] [id number] Pain in limb Social History Tobacco Use [...] Take 1,000 mcg by mouth daily. 07/03/2018 traMADol (ULTRAM) 50 mg tablet Take 1 tablet by mouth every 6 hours as needed for Pain. 70 tablet 0 02/17/2014 01/22/2015 bisacodyl (DULCOLAX) [address] 1 suppository rectally daily as needed. 60 suppository 3 02/06/2014 01/22/2015 warfarin (COUMADIN) 5 mg tablet Take 1 tablet by mouth every evening. Your dose may vary depending on your INR value. You may need to break or combine pills to achieve the right dose. 35 tablet 0 02/06/2014 01/22/2015 documented as of this encounter Plan of Treatment Upcoming Encounters Date Type Department Care Team (Late st Contact Info) Description 02/26/2024 10:15 AM EDT Office Visit Endocrinology at [facility] [place] [address] Cornell Harper MD [facility] [place] [address] documented as of this encounter Procedures Procedure Name Priority Date/Time Associated Diagnosis Comments XR PELVIS AND LATERAL HIP Routine 03/11/2014 9:46 AM EDT Pain in limb documented in this encounter Results * XR pelvis and lateral hip (03/11/2014 9:46 AM EDT) Anatomical Region Laterality Modality Pelvis, Hip N/A Radiographic Shantal ging 03/11/2014 9:46 AM EDT Narrative 03/11/2014 10:16 AM EDT Examination PELVIS+LATERAL HIP/LEFT Clinical History AMBER Comparison 12/29/2013. ?? Technique An AP radiograph of the pelvis excluding the tops of the iliac bones as well as an AP radiograph of the left hip are submitted. ?? Findings Bilateral hip arthroplasties are again seen. ??The right hip arthroplasty projects in expected position on the single submitted AP radiograph of the pelvis. There has been interval placement of a left total hip arthroplasty device. ??Alignment is near anatomic. There is no abnormal periprosthetic lucency to suggest fracture, loosening, or osteolysis. No acute fracture or dislocation. No evidence of asymmetric liner wear is seen. A phlebolith is incidentally noted in the right hemipelvis. Heterotopic ossification is seen about the right greater trochanter. ?? Impression 1. New left total hip arthroplasty in near anatomic alignment. 2. Right total hip arthroplasty appears unchanged and projects in expected position on the AP radiograph of the pelvis. Procedure Note Kaushik Ricks MD - 03/11/2014 Examination PELVIS+LATERAL HIP/LEFT Clinical History AMBER Comparison 12/29/2013. Technique An AP radiograph of the pelvis excluding the tops of the iliac bones aswell as an AP radiograph of the left hip are submitted. Findings Bilateral hip arthroplasties are again seen. The right hip arthroplasty projects in expected position on the single submitted AP radiograph of the pelvis. There has been interval placement of a left total hip arthroplasty device. Alignment is near anatomic. There is no abnormal periprosthetic lucency to suggest fracture, loosening, or osteolysis. No acute fractureor dislocation. No evidence of asymmetric liner wear is seen. A phlebolith is incidentally noted in the right hemipelvis. Heterotopic ossification isseen about the right greater trochanter. Impression 1. New left total hip arthroplasty in near anatomic alignment. 2. Right total hip arthroplasty appears unchanged and projects in expected position on the AP radiograph of the pelvis. Lance Holland MD IMG DX ORDERABLES documented in this encounter Visit Diagnoses Diagnosis Pain in limb documented in this encounter Care Teams Longwall Headgate Operator Relationship Specialty Start Date End Date Jamarcus Rodriguez MD [address] [place] [id number] PCP - General 06/07/10 03/24/18 documented as of this encounter
--- OUTSIDE RECORDS SUMMARY | 2024-01-25 00:29 | XMS_ITS | Encounter Summary ---
[place] [address] Care Team Providers Care Plastic Sheets Supervisor Name Role Phone Jamarcus Rodriguez MD Primary Care Provider [phone] Reason for Visit * Reason Onset Date Comments Medication Refill 02/17/2014 Encounter Details Date Type Department Care Team (Late st Contact Info) Description 02/17/2014 Refill [place] [phone] Lance Holland MD [address] [place] [address] Social History Tobacco Use Types Packs/Day Years [...] encounter Miscellaneous Notes * Telephone Encounter - Betty Langford RN - 02/17/2014 10:09 AM EDT Alyssa called. She stopped the dilaudid 4 days ago as it was constipating her. The tylenol does not agree with her. She would like to try tramadol as she is very achey. Tramadol called to her pharmacy. documented in this encounter Plan of Treatment Upcoming Encounters Date Type Department Care Team (Late st Contact Info) Description 02/26/2024 10:15 AM EDT Office Visit Endocrinology at [facility] [place] [address] Cornell Harper MD [facility] [place] [address] documented as of this encounter Visit Diagnoses Not on filedocumented in this encounter Care Teams Plastic Sheets Supervisor Relationship Specialty Start Date End Date Jamarcus Rodriguez MD [address] [place] [address] PCP - General 06/07/10 03/24/18 documented as of this encounter
--- OUTSIDE RECORDS SUMMARY | 2024-01-25 00:29 | XMS_ITS | Encounter Summary ---
Author Organization [facility] Address [facility] [place] [address] Care Team Providers Care Senior Attorney Name Role Phone Jamarcus Rodriguez MD Primary Care Provider [phone] Encounter Details Date Type Department Care Team (Late st Contact Info) Description 02/02/2014 8:30 AM EDT Office [place] [phone] Social History Tobacco Use Types Packs/Day Years [...] 10:15 AM EDT Office [place] [phone] Cornell Harper MD [facility] [place] [address] documented as of this encounter Visit Diagnoses Not on filedocumented in this encounter Care Teams Senior Attorney Relationship Specialty Start Date End Date Jamarcus Rodriguez MD [address] [place] [address] PCP - General 06/07/10 03/24/18 documented as of this encounter
--- OUTSIDE RECORDS SUMMARY | 2024-01-25 00:29 | XMS_ITS | Encounter Summary ---
Author Organization [facility] Address [facility] [place] [address] Care Team Providers Care Prenatal Genetic Counselor Name Role Phone Jamarcus Rodriguez MD Primary Care Provider [phone] Encounter Details Date Type Department Care Team (Late st Contact Info) Description 01/08/2014 Orders [place] [address] Steff Shukla MD [address] [place] [address] [place] [address] Pain in limb; Debility Social History Tobacco Use Types Packs/Day Years [...] 10:15 AM EDT Office [place] [address] Cornell Harper MD [facility] [place] [address] Scheduled Orders Name Type Priority Associated Diagnoses Orde r Schedule @TOTAL HIP ARTHROPLASTY, ANTERIOR APPROACH Procedures Routine Pain in limb One Time for 1 Occurrences starting 01/08/2014 until 01/08/2014 documented as of this encounter Results * XR pelvis and [...] AP radiograph of the pelvis. Procedure Note Head, Kaushik Andrew MD - 03/11/2014 Examination PELVIS+LATERAL HIP/LEFT Clinical [...] on the AP radiograph of the pelvis. Steff Shukla MD IMG DX ORDERABLES * Urine culture Clean Catch Urine (02/02/2014 2:07 PM EDT) Urine Culture ? Patient Name: OZ DIALLO, ?Ordered By: STEFF SHUKLA ? ALYSSA Jacques ? MR#: [id number] ?LOC: ??3D ? /Sex: ??1945 (68 years), ? Female ? PROCEDURE: Urine Culture ?SOURCE: U CC ? COLLECTED: 02/02/2014 14:07 ? STARTED: 02/02/2014 14:28 ? FINAL REPORT ? Final Report ? Verified:2013 08:23 ? 1,000-9,000 cfu/ml Gram Positive organisms , probable contaminant ? NOLA AGUILA Urine specimen obtained by clean catch procedure (specimen) 02/02/2014 2:07 PM EDT 02/02/2014 2:28 PM EDT Narrative Resulting Agency Comment Spec In Lab Steff Shukla MD MICROBIOLOGY - GENER AL ORDERABLES NOLA AGUILA * XR chest routine PA & lateral [...] Film and interpretation reviewed by the attending Steff Shukla MD IMG DX ORDERABLES * EKG 12 Lead (02/02/2014 11:31 AM EDT) Ventricular rate 65 BPM MUSE SYSTEM Atrial Rate 65 BPM MUSE SYSTEM P-R Interval 154 ms MUSE SYSTEM QRS Duration 80 ms MUSE SYSTEM Q-T Interval 402 ms MUSE SYSTEM QTC Calculated (Bezet) 418 ms MUSE SYSTEM Calculated P [place] 56 degrees MUSE SYSTEM Calculated R [place] 41 degrees MUSE SYSTEM Calculated T [place] 42 degrees MUSE SYSTEM INTERPRETATION Normal sinus rhythm Normal ECG When compared with ECG of 22-OCT-2008 12:37, No significant change was found Confirmed by MD FERMÍN, JOHN ([id number]) on 02/02/2014 5:19:38 PM MUSE SYSTEM 02/02/2014 11:3 1 AM EDT 02/02/2014 5:19 PM EDT Steff Shukla MD ECG ORDERABLES MUSE SYSTEM * Sedimentation rate (02/02/2014 11:17 AM EDT) Sed Rate 11 0 - 20 mm/hr NOLA AGUILA Blood specimen (specimen) 02/02/2014 11:17 AM EDT 02/02/2014 11:34 AM EDT Narrative Resulting Agency Comment Spec In Lab Steff Shukla MD HEMATOLOGY ORDERABLE S Performing Organization Address [facility] Co de Phone Number NOLA AGUILA * High Sensitivity CRP (02/02/2014 11:17 AM EDT) CRP High Sens 2.8 mg/L [facility] Comment: Interpretations: 1) For accurate cardiac risk [...] and Cardiovascular Disease. ??Circulation 2003; 107:499-511 2. Philipp PM. ??Clinical applications of C-reactive protein for cardiovascular disease detection and prevention. ??Circulation 2003; 107:363-369 Blood specimen (specimen) 02/02/2014 11:17 AM EDT 02/02/2014 11:34 AM EDT Narrative Resulting Agency Comment Spec In Lab Steff Shukla MD CHEMISTRY ORDERABLES Performing Organization Address [facility] Co de Phone Number NOLA AGUILA * Albumin Level (02/02/2014 11:17 AM EDT) Albumin 4.5 3.2 - 5.2 gm/dL [facility] Blood specimen (specimen) 02/02/2014 11:17 AM EDT 02/02/2014 11:34 AM EDT Narrative Resulting Agency Comment Spec In Lab Authorizing Provider Result Van Shukla MD CHEMISTRY ORDERABLES Performing Organization Address [facility] de Phone Number [facility] * Protein, total (02/02/2014 11:17 AM EDT) Total Protein 7.4 6.4 - 8.3 gm/dL [facility] Blood specimen (specimen) 02/02/2014 11:17 AM EDT 02/02/2014 11:34 AM EDT Narrative Resulting Agency Comment Spec In Lab Authorizing Provider Result Van Shukla MD CHEMISTRY ORDERABLES Performing Organization Address [facility] Phone Number [facility] * Prothrombin Time (02/02/2014 11:17 AM EDT) PT 12.6 12.5 - 15.5 sec [facility] Comment: [facility] Transfusion Committee Guidelines: INR less than 2.0, PTT less than OR equal to 43.5 seconds, or Fibrinogen greater than or equal to 100 mg/dl indicate adequate procoagulant activity for hemostasis in patients without underlying bleeding disorders. INR 0.9 0.9 - 1.1 [facility] Blood specimen (specimen) 02/02/2014 11:17 AM EDT 02/02/2014 11:34 AM EDT Narrative Resulting Agency Comment Spec In Lab Authorizing Provider Result Van Shukla MD HEMATOLOGY ORDERABLE S Performing Organization Address [facility] de Phone Number [facility] * Basic Metabolic Panel (non-fasting) (02/02/2014 11:17 AM EDT) Glucose Lvl 102 60 - 199 mg/dL [facility] Comment:Diabetes: >=200 mg/d L plus symptoms BUN 14 8 - 18 mg/dL [facility] Creatinine 0.76 0.70 - 1.20 mg/dL [facility] Comment: Please note that the pediatric reference intervals supplied above were not validated at [facility]. Results from pediatric patients should be interpreted [...] the following links into your internet browser. [email or web address] Blood specimen (specimen) 02/02/2014 11:17 AM EDT 02/02/2014 11:34 AM EDT Narrative Resulting Agency Comment Spec In Lab Steff Shukla MD CHEMISTRY ORDERABLES NOLA AGUILA documented in this encounter Visit Diagnoses Diagnosis Pain in limb Debility Debility, unspecified Pain in limb Pain in limb documented in this encounter Care Teams Prenatal Genetic Counselor Relationship Specialty Start Date End Date Jamarcus Rodriguez MD [address] [place] [address] PCP - General 06/07/10 03/24/18 documented as of this encounter
--- OUTSIDE RECORDS SUMMARY | 2024-01-25 00:29 | XMS_ITS | Encounter Summary ---
Author Organization [facility] [place] [address] Care Team Providers Care Ring Maker Name Role Phone Jamarcus Rodriguez MD Primary Care Provider [phone] Reason for Referral * Physical Therapy (Routine) - Complete - Patient Will Schedule External Appt Specialty Diagnoses / Procedures Referred By Calin t Referred To Contact Physical Therapy Diagnoses Primary osteoarthritis of left hip Status post hip replacement Betty Dong [facility] [place] [address] Referral ID Status Reason Start Date Expiration Date Visits Requested Visits Authorized [id number] Complete - Patient Will Schedule External Appt Evaluate and Treat 03/11/2014 09/07/2014 12 12 Reason for Visit * Reason Comments Left Hip Pain Left total hip arthr oplasty, anterior Encounter Details Date Type Department Care Team (Late st Contact Info) Description 03/11/2014 10:30 AM EDT Office [place] [address] Betty Dong [facility] [place] [address] Status post hip replacement (Primary Dx); 02/04 Dr. Holland Left Anterior AMBER Discharge Disposition: Home Social History Tobacco Use [...] Sign Reading Time Taken Comments Blood Pressure 129/68 03/11/2014 11:00 AM EDT Pulse 77 03/11/2014 11:00 AM EDT Temperature 37.4 ??C (99.3 ??F) 03/11/2014 11:00 AM E DT Respiratory Rate - - Oxygen Saturation - - Inhaled Oxygen Concentration - - Weight 70.3 kg (155 lb) 03/11/2014 11:00 AM EDT Height 157.5 cm (5' 2) 03/11/2014 11:00 AM EDT Body Mass Index 28.35 03/11/2014 11:00 AM EDT documented in this encounter Progress Notes * Betty Dong, LAN ANALYST - 03/11/2014 11:10 AM EDT Subjective: Chief Complaint: First global post op for left hip AMBER Pertinent Surgical History: Date: February 04, 2014 Surgeon: Lance Holland MD Pastry Assistant: Pre-operative diagnosis: Left hip osteoarthritis Surgical Procedure Performed: Injection left hip with 10 cc marcaine 0.25% with epi, into skin and subcutaneous tissues Left total hip arthroplasty, anterior Hueter approach with [place] table Left hip intraoperative radiologic examination Components Used: Depuy Corail stem, size 11, standard Prospect cup, 50 mm, solid 32 mm ID, neutral poly 32+5 mm CoCr head Bearing surface: metal on poly HPI: Alyssa Bland-Obed is 68 y.o. and is now 4 weeks post left total hip arthroplasty. Pain is controlled with current analgesics. Medication(s) being used: over the counter tylenol prn. The patient denies fever, wound drainage, increasing redness, pus, increasing pain, increasing swelling. Post op problems reported: None. She is ambulating unassisted. + regular BM's. Appetite is good. Sleeping is ok. She is now off of coumadin. She is allergic to aspirin so she is focusing on frequent ankle pumps. Self DC'd VIN stockings over the weekend. She has been DC from the home care PT. Needs updated PT orders for outpt therepay. No interval falls, Injuries or infections. No numbness or tinglingdistal to her surgical site. She is here for her first post op appointment. ROS: Denies fever, chills, nausea, vomiting, vision [...] unchanged. Questionnaire Responses: myD-H Hip & Knee 03/03/2014 MODEMS Expectation - MODEMS Satisfaction 100 VR12 - Physical Component Summary 29.48 VR12 - Mental Component Summary 49.25 PROMIS-10 General Health Very Good PROMIS-10 Quality of Life Very Good PROMIS-10 Physical Health Very Good PROMIS-10 Mental Health Very Good PROMIS-10 Social Activity and Relationship Satisfaction Very Good PROMIS-10 Social Roles at Home and Work Very Good PROMIS-10 Everyday Physical Activities Moderately PROMIS-10 Anxious or Depressed last 7 days Rarely PROMIS-10 Fatigue last 7 days Moderate PROMIS-10 Pain last 7 days 1 PROMIS PHYSICAL HEALTH SCORE (range 16-68) 44.9 PROMIS MENTAL HEALTH SCORE (range 21-68) 53.3 Arthritis Ladder - Hip - Objective: Filed Vitals: 03/11/14 1100 BP: 129/68 Pulse: 77 Temp: 37.4 ??C (99.3 ??F) Height: 157.5 cm (5' 2) Weight: 70.308 kg (155 lb) Body mass index is 28.34 kg/(m^2). General : alert, appears stated age, cooperative, no distress and well developed, well-nourished Chest: RR: 12. Non-labored. Abdomen : Flat and non-distended Gait: mild abductor lurch that corrects with ambulation. No assistive devices Sutures: Sutures out. Incision: healing well, no significant drainage, no dehiscence, no significant erythema. There was a tiny stitch material removed from the most distal aspect of the surgical incision. No evidence of infection. Tolerated well and covered with a bandaid Tenderness: none Flexion ROM: See below Extension [...] discrepancy: none Motion: Total degrees of Flexion: 90 Total degrees of Abduction: 20 Total degrees of Ext Rotation: 15 IR: 5 Total degrees of Adduction: 0 Gait Abnormality: mild abductor lurch that corrects with ambulation Pulses Palpable: Left PT: Yes Left DP: Yes Motor/Sensory: Left Distal Motor: Normal Distal Sensory: Normal full light touch sensation of the anterior thigh Hip Abductors: 4 Imaging Reviewed image by image in the office today Well seated implant with no evidence of loosening, No mal-positioning no complications noted. Assessment: This is a 68 year old Female who is 4 weeks Status post left total hip arthroplasty. Doing well postoperatively. No complications noted. Plan: I reviewed my findings in the office today. Begin local wound cares. Keep surgical incision clean and dry. If she notices any further stitch prominence or sign or symptoms of infection. She will callsooner prn. Wound care discussed as above. Range of motion and rehabilitation exercises discussed with the patient. Physical Therapy for post-operative rehabilitation. Out Patient PT orders in [facility]. Full weight bearing. Cool packs prn. Acetomenophen prn no greater than 3 grams per day. Frequent ankle pumps. Follow up: 8 weeks. No x-rays needed at that time. Sooner prn. We discussed the appropriate precautions [...] Office Visit Endocrinology at [facility] [place] [address] Cornell Harper MD [facility] [place] [address] Scheduled Referrals Name Type Priority Associated Diagnoses Orde r Schedule Referral to Physical Therapy Outpatient Referral Routine 02/04 Dr. Holland Left Anterior AMBER Status post hip replacement Ordered: 03/11/2014 documented as of this encounter Visit Diagnoses Diagnosis Status post hip replacement- Primary Hip joint replacement by other means 02/04 Dr. Holland Left Anterior AMBER Primary localized osteoarthrosis, pelvic region and thigh documented in this encounter Care Teams Ring Maker Relationship Specialty Start Date End Date Jamarcus Rodriguez MD [address] [place] [address] PCP - General 06/07/10 03/24/18 documented as of this encounter
--- OUTSIDE RECORDS SUMMARY | 2024-01-25 00:29 | XMS_ITS | Encounter Summary ---
[place] [address] Care Team Providers Care Automation Controls Expert Name Role Phone Jamarcus Rodriguez MD Primary Care Provider [phone] Reason for Visit * Reason Onset Date Comments VNA Calls 03/03/2014 Encounter Details Date Type Department Care Team (Late st Contact Info) Description 03/03/2014 [place] [address] Lance Holland MD [address] [place] [address] VNA Calls Social History Tobacco Use Types Packs/Day Years [...] Telephone Encounter - Betty Langford RN - 03/03/2014 11:49 AM EDT Michael called notified Alyssa does not need another PT/INR drawn. * Telephone Encounter - Inna Russo - 03/03/2014 10:41 AM EDT Name and credentials of caller: ALONDRA POPE RN PLEASE CALL [phone], ASK FOR IZZY ARANA LAST COUMADIN DOSE IS TOMORROW. DOES SHE NEED ANOTHER PT/INR DONE AFTER THAT DOSE? THEY WOULD LIKE TO D/C HER TOMORROW IF NOT. documented in this encounter Plan of Treatment Upcoming Encounters Date Type Department Care Team (Late st Contact Info) Description 02/26/2024 10:15 AM EDT Office Visit Endocrinology at [facility] [place] [address] Cornell Harper MD [facility] [place] [address] documented as of this encounter Visit Diagnoses Not on filedocumented in this encounter Care Teams Automation Controls Expert Relationship Specialty Start Date End Date Jamarcus Rodriguez MD [address] [place] [address] PCP - General 06/07/10 03/24/18 documented as of this encounter
--- OUTSIDE RECORDS SUMMARY | 2024-01-25 00:29 | XMS_ITS | Encounter Summary ---
[place] [address] Care Team Providers Care Lock Assembler Name Role Phone Jamarcus Rodriguez MD Primary Care Provider [phone] Encounter Details Date Type Department Care Team (Latest Contact Info) Description 02/12/2014 Anti-Coag Telephone [place] [address] Marley Tom, RN Status post right hip replacement Social [...] as of this encounter Progress Notes * Marley Tom, RN - 02/12/2014 2:51 PM EDT Anticoagulation Therapy Nurse Visit Alyssa [place] 1945 Surgeon: Lance Holland MD Indication: DVT Prophylaxis S/P Joint Replacement - 02/04/14 Dr. Holland Left Anterior MABER Duration of Treatment: 28 days ends: After 03/04/14 dose Therapeutic Range: 2.0-3.0 INR: 2.1 Drawn by: [place] Gregg [facility] Patient states that she was instructed to [...] 10:15 AM EDT Office [place] [address] Cornell Harper MD [facility] [place] [address] documented as of this encounter Procedures Procedure Name Priority Date/Time Associated Diagnosis Comments EXTERNAL LAB RESULTS Routine 02/12/2014 documented in this encounter Results * (ABNORMAL) External Lab Results (02/12/2014) POC INR 2.1(Director Of Career Resources al Lab) 0.9 - 1.1 Comment:Greg Escobedo [facility] 02/12/2014 Historical Provider CHEMISTRY ORDERAB LES documented in this encounter Visit Diagnoses Diagnosis Status post right hip replacement Hip joint replacement by other means documented in this encounter Care Teams Lock Assembler Relationship Specialty Start Date End Date Jamarcus Rodriguez MD [address] [place] [address] PCP - General 06/07/10 03/24/18 documented as of this encounter
--- OUTSIDE RECORDS SUMMARY | 2024-01-25 00:29 | XMS_ITS | Encounter Summary ---
Author Organization [facility] Address [facility] [place] [address] Care Team Providers Care Scutcher Tender Name Role Phone Jamarcus Rodriguez MD Primary Care Provider [phone] Encounter Details Date Type Department Care Team (Latest Contact Info) Description 03/21/2012 4:00 PM EDT - 03/21/2012 11:59 PM EDT Hospital Encounter XRay at [address] [place] [address] CLINIC, Moustapha Lynne MD [facility] [place] [address] Knee joint pain Discharge Disposition: Home Social History Tobacco [...] Sig Dispensed Refills Start Date End Date albuterol (PROVENTIL HFA;VENTOLIN HFA) 90 mcg/actuation inhaler Inhale 2 puffs into the lungs every 4 hours as needed. Use with spacer SERTRALINE HCL (SERTRALINE ORAL) Take 50 mg by mouth daily. fluticasone (FLOVENT HFA) 220 mcg/Actuation inhaler 09/02/2010 ibuprofen (ADVIL;MOTRIN) 200 mg tablet Take 400 mg by mouth every 6 hours as needed. 12/29/2013 LORazepam (ATIVAN) 1 mg tablet Take 1 mg by mouth 3 times daily. 12/29/2013 omeprazole (PRILOSEC OTC) 20 mg tablet 09/02/2010 02/02/2014 lovastatin (ALTOPREV) 40 mg 24 hr tablet 09/02/2010 12/29/2013 CLOBETASOL PROPIONATE (CLOBETASOL TOP) 09/02/2010 12/29/2013 documented as of this encounter Plan of Treatment Upcoming Encounters Date Type Department Care Team (Late st Contact Info) Description 02/26/2024 10:15 AM EDT Office Visit Endocrinology at [facility] [place] [address] Cornell Harper MD [facility] [place] [address] documented as of this encounter Procedures Procedure Name Priority Date/Time Associated Diagnosis Comments XR KNEE DIAGNOSTIC 1 OR 2 VIEW Routine 03/21/2012 4:25 PM EDT Knee joint pain documented in this encounter Results * XR knee diagnostic 1 or 2 view (03/21/2012 4:25 PM EDT) Anatomical Region Laterality Modality Knee N/A Radiographic Shantal ging 03/21/2012 4:25 PM EDT Narrative 03/21/2012 5:54 PM EDT Examination KNEE 1 OR 2 VIEWS/LEFT Clinical History S/P TKA Comparison None Technique AP view of both knees. ??Lateral view of left knee. Findings Mild to moderate left tricompartmental knee joint degeneration as indicated by small to moderate-sized diffuse osteophytes. ??A small knee joint effusion may be present. ??The femorotibial joint spaces are still well preserved, only mild narrowing medially. ??Calcification projecting posterior and slightly medial to the distal left femur may represent a phlebolith. Procedure Note Janneth Malcolm MD - 03/21/2012 Examination KNEE 1 OR 2 VIEWS/LEFT Clinical History S/P TKA Comparison None Technique AP view of both knees. Lateral view of left knee. Findings Mild to moderate left tricompartmental knee joint degeneration asindicated by small to moderate-sized diffuse osteophytes. A small knee joint effusionmay be present. The femorotibial joint spaces are still well preserved, onlymild narrowing medially. Calcification projecting posterior and slightlymedial to the distal left femur may represent a phlebolith. Moustapha Morales MD IMG DX ORDERABLES documented in this encounter Visit Diagnoses Diagnosis Knee joint pain Pain in joint, lower leg documented in this encounter Care Teams Scutcher Tender Relationship Specialty Start Date End Date Jamarcus Rodriguez MD [address] [place] [address] PCP - General 06/07/10 03/24/18 documented as of this encounter
--- OUTSIDE RECORDS SUMMARY | 2024-01-25 00:29 | XMS_ITS | Encounter Summary ---
Author Organization [facility] [place] [address] Care Team Providers Care Counter Clerk [employer] Name Role Phone Jamarcus Rodriguez MD Primary Care Provider [phone] Reason for Visit * Reason Comments Left Hip Pain Aftercare Of Tjr s/p left svetlana bravo Encounter Details Date Type Department Care Team (Latest Contact Info) Description 12/29/2013 12:10 PM EDT Office [place] [address] Lance Holland MD [address] [place] [id number] Primary osteoarthritis of left hip (Primary Dx); History of total hip replacement Discharge Disposition: Home Social History Tobacco Use [...] Sign Reading Time Taken Comments Blood Pressure 135/62 12/29/2013 12:44 PM EDT Pulse 69 12/29/2013 12:44 PM EDT Temperature - - Respiratory Rate - - Oxygen Saturation - - Inhaled Oxygen Concentration - - Weight 70.9 kg (156 lb 3.2 oz) 12/29/2013 12:44 PM EDT Height 157.5 cm (5' 2) 12/29/2013 12:44 PM EDT Body Mass Index 28.57 12/29/2013 12:44 PM EDT documented in this encounter Progress Notes * Betty Dong, TANNERY WORKER - 12/29/2013 12:58 PM EDT Chief Complaint: 1. Rotary appointment for right hip SVETLANA. 2. Left hip pain. PERTINENT SURGICAL HISTORY: On 12/02/2008, right total hip arthroplasty by Dr. Cifuentes. SURGERY DATE: 12/02/2008 SHINE CIFUENTES MD ([id number]) Right total hip arthroplasty. Preoperative Diagnosis: Right hip osteoarthritis. Postoperative Diagnosis: Right hip osteoarthritis. Implants: All are from the [employer] Total Hip System: 1. [place] 300 series acetabular cup, 50 mm. 2. +4 lateral Winn polyethylene liner. 3. A 32+0 ceramic head. 4. A 31/05 36+6 lateral SROM femoral stem. 5. A 16B large proximal sleeve. HPI: This is a 68 year old Female here for a rotary appointment for right hip SVETLANA. Right hip SVETLANA doing well no falls or injuries or infections. She continues to feel much better than her preoperativestatus. Left hip primary OA that has recently been followed by an outside provider Mikael Salgado D.O. in [place] after she did experience increased left hip pain after shoveling 3 mm months. At that time, The aforementioned Orthopaedic provider did order a left hip MRI scan revealed a camlesion moderate severe degenerative joint disease. She was advised to seek consultation for possible left hip arthroplasty. She does split her time between [place] and [place] to care for her aging parents essentially spending ~ 6 months in [place] and [place]. She describes her left hip pain as moderate to severe with difficulty putting her shoes and socks on. She does use a cane for assistance and [id number] anti-inflammatories. She is just about to start her progress PT program for pre-HAB rehabilitation exercises. There is some complaints of non radicular low back pain.Yet, No radiculopathy or numbness or tingling. She states that her health is otherwise stable. Review of systems: Denies fever, chills, nausea, vomiting, vision change, shortness of breath, chest pain, vision changes, headaches, bowel or bladder problem, ear, nose, sinus problem, neuro or psychiatric, or endocrine disorder not addressed above. In regards to other potential surgical risk factors there is No history of sleep apnea. No diabetes. Nonsmoker. No history of blood clots DVT or PE.No bleeding disorders. No reported problems with anesthesia. Patient Active Problem List Diagnosis Code ??? CIS - Arthritis T999.0 ??? CIS - Entered not Verified T999.0 ??? CIS - GERD T999.0 ??? CIS - HTN T999.0 ??? CIS - hyperlipidemia T999.0 ??? CIS - reactive airway disease T999.0 Medication list reconciled. Allergies Allergen Reactions ??? Latex Rash ??? Iodine-Iodine Containing Rash ??? Morphine Sulfate Rash ??? Penicillins Rash ??? Aspirin GI pain ??? 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 History Substance Use Topics ??? Smoking status: Former Smoker ??? Smokeless tobacco: Never Used Comment: in college ??? Alcohol Use: No Questionnaire Responses: myD-H Hip & Knee 12/22/2013 MODEMS Expectation 56.25 MODEMS Satisfaction - VR12 - Physical Component Summary 22.91 VR12 - Mental Component Summary 65.75 PROMIS-10 General Health Very Good PROMIS-10 Quality of Life Very Good PROMIS-10 Physical Health Very Good PROMIS-10 Mental Health Very Good PROMIS-10 Social Activity and Relationship Satisfaction Good PROMIS-10 Social Roles at Home and Work Very Good PROMIS-10 Everyday Physical Activities Moderately PROMIS-10 Anxious or Depressed last 7 days Sometimes PROMIS-10 Fatigue last 7 days Moderate PROMIS-10 Pain last 7 days 5 PROMIS PHYSICAL HEALTH SCORE (range 16-68) 42.3 PROMIS MENTAL HEALTH SCORE (range 21-68) 48.3 Arthritis Ladder - Hip Footwear/orthotics, Heat and ice therapy, Information & education, Injected Cortisone, Physical therapy, Regular exercise, Walking aids Physical Exam: Filed Vitals: 12/29/13 1244 BP: 135/62 Pulse: 69 Height: 157.5 cm (5' 2) Weight: 70.852 kg (156 lb 3.2 oz) Body mass index is 28.56 kg/(m^2). General: 68 year old Female in no acute distress. Alert and oriented X3. Affect is bright and appropriate. Neck: Supple. No JVD Chest: RR: 12. Non-labored. Abdomen: Flat and non-distended. Ortho: Positional changes are slow. Uses 2 hands to rise from chair. She is able to get on and off exam table with out difficulty. Sitting position axial loading of the right hip produces no pain or apprehension. Negative nerve root tension sign bilaterally. Supine there is a small leg length discrepancy ~ 0.5 cm centimeters right longer the left. No pain to either hip with log rolling. Straight leg raising is strong right 5/5. Left SLR 4+ /5. EHL/FHL 5/5. No clonus. No babinski's. Calves are symmetric and soft. Post Op Right Hip Exam: Wilkins Hip Score: Less than 30 degrees of fixed flexion: Yes Less than 10 degrees of fixed adduction: Yes less than 10 degrees of fixed int rotation in extension: Yes Limb Length discrepancy: 0.5 cm right longer than left. Motion: Total degrees of Flexion:110 Total degrees of Abduction:35 Total degrees of Ext Rotation: 35 IR: 15 Total degrees of Adduction: 10 Gait Abnormality: Mild abductor lurch on the left side Pulses Palpable: Right PT: Yes Right DP:Yes Motor/Sensory: Right Distal Motor: Normal Distal Sensory: Normal Hip Abductors: 4 I have made the following determinations: Hip Exam: Left Prior surgery on this joint:No Wilkins Hip Score: Less than 30 degrees of fixed flexion: Yes Less than 10 degrees of fixed adduction: Yes Less than 10 degrees of fixed int rotation in extension: Yes Limb Length discrepancy: 0.5cm right longer than left Motion: Total degrees of Flexion: 80 Total degrees of Abduction: 20 Total degrees of Ext Rotation: 15 IR: 5 Total degrees of Adduction: 5 Gait Abnormality: mild abductor lurch on the left side Radiographic evidence of joint damage: [0= normal; 1=minimal ; 2= some osteophytes , some narrowing ; 3= moderate osteophytes, significantnarrowing, mild deformity; 4= large osteophytes, marked narrowing, obvious deformity]: 4= large ostophytes, marked narrowing, obvious deformity Skin Integrity: Normal Pulses Palpable: Left PT: Yes Left DP: Yes Motor/Sensory: Left Distal Motor: Normal Distal Sensory: Normal Hip Abductors: 5 Skin: Dry and intact. Neuro: Full light touch sensation. Non focal lumbar spine exam. Both EHL 5/5. FHL 5/ 5. No Clonus. Vascular: Capillary refills brisk. X-RAYS: Reviewed image by image in the office today. Right hip SVETLANA with out any evidence of loosening malpositioning. Previously mentioned pedestal formation of the right femoral stem is unchanged. +obvious heterotopic bone formation of the proximal right greater trochanteric region unchanged fromprevious x-ray. Left hip plain radiographs reveal moderate severe degenerative joint disease with craft bchondral sclerosis large cam lesion and marginal osteophytes. There is an OPEN MRI scan from [place] November 2013 that reveals moderate to severe DJD. No evidence of avascular necrosis. + CAM lesion noted. Formal x-ray report is as followed: Right total hip arthroplasty without change in appearance and alignment. No radiolucencies or periprosthetic fracture. There is unchanged pedestal formation at the tip of the femoral stem. Progression of left hip osteoarthropathy with further loss of left hip joint space, increased subchondral sclerosis and large osteophytes. unchanged heterotopic bone formation around the right greater trochanter. Impression 1. Uncomplicated right total hip arthroplasty. 2. Progression of left hip joint osteoarthropathy with further loss of left hip joint space. Assessment: This is a very pleasant 68 year old Female with 1. Right hip prosthesis, stable. 2008. No complications noted. 2. Left hip pain, moderate to severe OA. + symptomatic. PLAN: H and P reviewed with Dr. Holland. The risks and benefits of surgery discussed. Pt is interested in left hip SVETLANA surgery. She would like to think about her options and get her support system in order over the next few days. Once she is ready, she will call Chey Langford for surgical scheduling. We do note in further discussion today that if she does pursue left hip SVETLANA surgery, she does request the use of post op Dilaudid and she does not tolerate OxyContin well. Per Dr. Holland agrees and we will again review this with her at her pre-op appointment. Follow up appointment for right hip SVETLANA should be in 24 months with notation made to our staff for a rotary appointment. Sooner prn. We discussed the appropriate precautions surrounding dental prophylaxis. I stressed that she shoulduse oral antibiotics for any elective dental procedures for any further dental work for the lifetime of the joint replacement. We also discussed maintaining good foot care and giving prompt attentionto any source of infection throughout the body including foot ulcers and urinary tract infections. documented in this encounter Plan of Treatment Upcoming Encounters Date Type Department Care Team (Late st Contact Info) Description 02/26/2024 10:15 AM EDT Office Visit Endocrinology at [facility] [place] [address] Cornell Harper MD [facility] [place] [address] documented as of this encounter Visit Diagnoses Diagnosis Primary osteoarthritis of left hip- Primary Primary localized osteoarthrosis, pelvic region and thigh History of total hip replacement Hip joint replacement by other means documented in this encounter Care Teams Counter Clerk Tractor Parts Relationship Specialty Start Date End Date Jamarcus Rodriguez MD [address] [place] [address] PCP - General 06/07/10 03/24/18 documented as of this encounter
--- OUTSIDE RECORDS SUMMARY | 2024-01-25 00:29 | XMS_ITS | Encounter Summary ---
[place] [address] Care Team Providers Care Water Mangle Tender Name Role Phone Jamarcus Rodriguez MD Primary Care Provider [phone] Encounter Details Date Type Department Care Team (Latest Contact Info) Description 02/19/2014 Anti-Coag Telephone [place] [id number] Betty Langford, RN Status post right hip replacement Social [...] as of this encounter Progress Notes * Betty Langford, RN - 02/19/2014 2:02 PM EDT Anticoagulation Therapy Nurse Visit Alyssa Burnham 1945 Surgeon: Lance Holland MD Indication: DVT Prophylaxis S/P Joint Replacement - 02/04/14 Dr. Holland Left Anterior AMBER Duration of Treatment: 28 days ends: After 03/04/14 dose Therapeutic Range: 2.0-3.0 INR: 1.5 Drawn by: [facility] Patient presents with no signs of bleeding [...] EDT Office Visit Endocrinology at [facility] [place] [address] Cornell Harper MD [facility] [place] [address] documented as of this encounter Procedures Procedure Name Priority Date/Time Associated Diagnosis Comments EXTERNAL LAB RESULTS Routine 02/19/2014 documented in this encounter Results * (ABNORMAL) External Lab Results (02/19/2014) POC INR 1.5(Externa l Lab) 0.9 - 1.1 02/19/2014 Historical Provider CHEMISTRY ORDERAB LES documented in this encounter Visit Diagnoses Diagnosis Status post right hip replacement Hip joint replacement by other means documented in this encounter Care Teams Water Mangle Tender Relationship Specialty Start Date End Date Jamarcus Rodriguez MD [address] [place] [address] PCP - General 06/07/10 03/24/18 documented as of this encounter
--- OUTSIDE RECORDS SUMMARY | 2024-01-25 00:29 | XMS_ITS | Encounter Summary ---
[place] [address] Care Team Providers Care Incident Response Consultant Name Role Phone Jamarcus Rodriguez MD Primary Care Provider [phone] Encounter Details Date Type Department Care Team (Late st Contact Info) Description 02/02/2014 11:00 AM EDT Clinical [place] [phone] Pain in limb Social History Tobacco Use [...] Sign Reading Time Taken Comments Blood Pressure - - Pulse 64 02/02/2014 10:38 AM EDT Temperature - - Respiratory Rate - - Oxygen Saturation 97% 02/02/2014 10:38 AM EDT Inhaled Oxygen Concentration - - Weight 71.5 kg (157 lb 9.6 oz) 02/02/2014 10:38 AM EDT Height 157.5 cm (5' 2) 02/02/2014 10:38 AM EDT Body Mass Index 28.83 02/02/2014 10:38 AM EDT documented in this encounter Progress Notes * Chey Welch RN - 02/02/2014 11:12 AM EDT PAT questionnaire reviewed with patient while in Pre Admission testing. Pt reports having trouble breathing after receiving sodium pentothal. Otherwise tolerated anesthesia without difficulty. Pt with asthma has inhalers. Pre- operative instruction booklet reviewed. Patient verbalizes a good understanding of all information reviewed. PLAN: Testing: Blood work, urine, EKG and CXR Special medication instructions: Procedure date: 02/04/14 documented in this encounter Plan of Treatment Upcoming Encounters Date Type Department Care Team (Late st Contact Info) Description 02/26/2024 10:15 AM EDT Office Visit Endocrinology at [facility] [place] [address] Cornell Harper MD [facility] [place] [address] documented as of this encounter Procedures Procedure Name Priority Date/Time Associated Diagnosis Comments EKG 12-LEAD Routine 02/02/2014 11:31 AM EDT Pain in limb documented in this encounter Results * EKG 12 Lead (02/02/2014 11:31 AM EDT) Ventricular rate 65 BPM MUSE SYSTEM Atrial Rate 65 BPM MUSE SYSTEM P-R Interval 154 ms MUSE SYSTEM QRS Duration 80 ms MUSE SYSTEM Q-T Interval 402 ms MUSE SYSTEM QTC Calculated (Bezet) 418 ms MUSE SYSTEM Calculated P [place] 56 degrees MUSE SYSTEM Calculated R [place] 41 degrees MUSE SYSTEM Calculated T [place] 42 degrees MUSE SYSTEM INTERPRETATION Normal sinus rhythm Normal ECG When compared with ECG of 22-OCT-2008 12:37, No significant change was found Confirmed by MD FERMÍN, JOHN ([id number]) on 02/02/2014 5:19:38 PM MUSE SYSTEM 02/02/2014 11:3 1 AM EDT 02/02/2014 5:19 PM EDT Lance Holland MD ECG ORDERABLES MUSE SYSTEM documented in this encounter Visit Diagnoses Diagnosis Pain in limb documented in this encounter Care Teams Incident Response Consultant Relationship Specialty Start Date End Date Jamarcus Rodriguez MD [address] [place] [address] PCP - General 06/07/10 03/24/18 documented as of this encounter
--- OUTSIDE RECORDS SUMMARY | 2024-01-25 00:29 | XMS_ITS | Encounter Summary ---
[place] [address] Care Team Providers Care Foreign Service Teacher Name Role Phone Nirav Turner MD Primary Care Provider [phone] Encounter Details Date Type Department Care Team (Late st Contact Info) Description 02/04/2014 11:56 AM EDT - 02/04/2014 2:09 PM EDT [place] [phone] Steff Holland MD [address] [place] [id number] TOTAL HIP ARTHROPLASTY, ANTERIOR APPROACH (WRVU 19.6) Social History Tobacco Use Types Packs/Day Years [...] The INR should be reported to the [facility] Ortho clinic at [phone], and you will be informed of any [...] bowel movement. You can also take an ivbr-mzw-pyswaue medication, miralax if needed to combat constipation. [...] 1. You will have followup appointments at [facility] as indicated in Future Appointment and Orders. Youwill have an xray prior to those appointments so please come to Radiology, desk 3T, 1 hour BEFORE your appointment for those x- rays. (plan to arive at 9:30 am for x-rays) Future Appointments Date Time Provider Department Center 03/11/2014 10:30 AM Betty Dong APRN [facility] If you have questions or concerns: [...] home with family. Discharge summary faxed to [facility]. LADONNA DAUGHERTY RN * Chad Heath PTA - 02/06/2014 11:31 AM EDT Physical Therapy [...] Rehabilitation Department Chad Heath PTA Pager # [phone] * DanieldiegoWilfridLatter Day Viviana - 02/06/2014 6:02 AM EDT ORTHOPAEDIC INPATIENT [...] on chronically, no bridging Pain control: d/c EGG SMELLER, oral pain medications D/c levine, HLIV Discharge planning: home vs rehab per PT Attending Note. I have seen the patient, I have reviewed the care plan as described, and I agree (with any changes or additions outlined below). Some pain issues, but improved. Expect discharge in 24 hours to home with VNA. Steff Holland MD * Nanda Albarado, RN - 02/04/2014 7:03 PM EDT Patient [...] s/p Left Anterior Approach AMBER Surgery: 02/04/2014 [id number] Procedure(s) (LRB): @TOTAL HIP ARTHROPLASTY, ANTERIOR APPROACH [...] 5:09 PM EDT 1700- Pt. Instructed about EGG SMELLER. * Ashly Dong RN - 02/04/2014 3:54 [...] documented in this encounter Procedure Notes * Provider, Scanning - 02/07/2014 2:36 PM EDTAssociated Order(s): SCAN DOC: IMPLANTABLE DEVICES documented in this encounter Miscellaneous Notes * Op Note - Steff Holland MD - 02/12/2014 8:19 AM EDT Surgery Start Time: 1303 Surgery Stop Time: 1412 Date: February 04, 2014 Surgeon: Steff Holland MD Cutting And Creasing Press Operator: Frandy Hooper MD Anesthesia: GET Pre-operative diagnosis: Left hip osteoarthritis Post-operative diagnosis: Same Surgical Procedure Performed: Injection left hip with 10 cc marcaine 0.25% with epi, into skin and subcutaneous tissues Left total hip arthroplasty, anterior Hueter approach with Nelson table Left hip intraoperative radiologic examination Components Used: Depuy Corail stem, size 11, standard Blacklick cup, 50 mm, solid 32 mm ID, [...] wasperformed. Patient was positioned supine on the Nelson table, both feet and ankles were padded [...] liner was placed and impacted according to clinical geneticist's instructions. Any impinging osteophytes were removed. The [...] and laterally. At the same time, the household personal assistant leaned against the thigh to optimize [...] Implant Name Type Inv. Item Serial No. Ethylene Plant Helper Lot No. LRB No. Used Action CUP,HIP,ACETB,GRPTN,100,50MM ([id number]) (AUTOREQ) - [id number] IMPLANTS CUP,HIP,ACETB,GRPTN,100,50MM ([id number]) (AUTOREQ) [id number] Left 1 Implanted INSER,ALTRX,NT,[id number] ([id number]) (AUTOREQ) - [id number] IMPLANTS INSER,ALTRX,NT,[id number] ([id number]) (AUTOREQ) [id number] Left 1 Implanted STEM,CRL2,STD,SZ11 ([id number]) (AUTOREQ) - [id number] IMPLANTS STEM,CRL2,STD,SZ11 ([id number]) (AUTOREQ) [id number] Left 1 Implanted BALL,ATC,BRN,+5MM,32MM ([id number]) (AUTOREQ) - [id number] IMPLANTS BALL,ATC,BRN,+5MM,32MM ([id number]) (AUTOREQ) [id number] Left 1 Implanted * OR Attestation - Steff Holland MD - 02/12/2014 7:56 AM EDT Attestation: Case Date: 02/04/2014 I was present and I participated during the entire procedure (does not need to include opening and closing). STEFF HOLLAND MD 02/12/2014 * Miscellaneous - Provider, Jj - 02/07/2014 2:36 PM EDT * Discharge Summary - Breann Ochoa PA - 02/06/2014 12:27 PM EDT Discharge Summary Patient Name: Alyssa Burnham Patient Age: 68 y.o. Language: [place] Race: White Ethnicity: Not nor Admit date: 02/04/2014 Discharge date and time: 02/06/2014 Attending Physician: Steff Holland MD Discharge Physician: Steff Holland MD Follow-up Recommendations for Providers: Please see patient discharge instructions for additional details. Inpatient Provider Contact Information: Steff Holland MD Joints: [phone] After hours and weekends, call [facility] Car Changer, , and have Orthopedic resident paged. Discharge [...] an outside provider Mikael Salgado D.O. in [place] after she did experience increased left hip pain after shoveling 3 mm months. At that time, The aforementioned Orthopaedic provider did order a left hip MRI scan revealed a cam lesion moderate severe degenerative joint disease. She was advised to seek consultation for possible left hip arthroplasty. She does split her time between [place] and [place] to care for her aging parents essentially spending ~ 6 months in [place] and [place]. She describes her left hip pain as moderate to severe with difficulty putting her shoes and socks on. She does use a cane for assistance and rjvl-xto-juwcwxp anti-inflammatories. She is just about to start [...] Weight: Wt Readings from Last 1 Encounters: 02/04/ 71.215 kg (157 lb) Height: Ht Readings from Last 1 Encounters: 02/04/ 157.5 cm (5' 2) HC: HC Readings from Last 1 Encounters: No data found for HC BMI: Body mass index is 28.71 kg/(m^2). Last value Range last 24 hrs Temperature Temp: 37.2 ??C (99 ??F) Temp: [36.8 ??C (98.2 ??F)-37.2 ??C (99 ??F)] Heart Rate Heart Rate: 85 Heart Rate: [67-92] Blood Pressure BP: 140/59 mmHg @nibhmtd86@ Respiratory Rate Resp: 16 Resp: [16] SpO2 SpO2: 95 % @ccdfebzt18@ Art BP BP (Arterial Line): -- Functional [...] The INR should be reported to the [facility] Ortho clinic at [phone], and you will be informed of any [...] bowel movement. You can also take an jzvi-lzv-peuflhf medication, miralax if needed to combat constipation. [...] 1. You will have followup appointments at [facility] as indicated in Future Appointment and Orders. Youwill have an xray prior to those appointments so please come to Radiology, desk 3T, 1 hour BEFORE your appointment for those x- rays. (plan to arive at 9:30 am for x-rays) Future Appointments Date Time Provider Department Center 03/11/2014 10:30 AM Betty Dong APRN [facility] If you have questions or concerns: Sunday through Sunday, 8 AM- 5 PM, please call Dr. Holland's office at . If it is after 5 PM or on the weekend, please call and ask for orthopedic resident on-call to be paged. Future Appointments and Orders Future Appointments: Provider: Department: Dept Phone: Center: 03/11/2014 10:30 AM Betty Dong APRN Orthopaedics [phone] [facility] Joint Appt Questionnaire [facility] [phone] [facility] Future Orders Please Complete By Expires Referral for Anticoagulation Monitoring [BXE168 Custom] Process Instructions: If no progress note charted, please enter Clinical details in comments. Scheduling Instructions: Comments: Questions: Responses: My question or request is: pt on coumadin for 28 days after surgery.INR 1.4 on d/c. vna to test INRand send results Risk Factors: Responsible Group [facility] ANTICOAG Next due INR 02/07/2014 INR Goal 2.0-3.0 Target End Date 03/04/2014 Referral to Home Health - at DISCHARGE [GFJ2662 CPT(R)] Process Instructions: Scheduling Instructions: Comments: DOCUMENTATION FOR VNA SERVICES Alyssa Hanna DallinofeliaRicardoObed Discharge to own home: [address] [facility] [phone] (home) Special Education Tutor's Name: Self In discussion with the attending physician, it is certified that this patient is under their care and that they, or a nurse practitioner, clinical nurse specialist or physician's household personal assistant who is working directly with them, [...] for services as follows: Home Health Agency: [facility] PHONE: [phone] FAX: [phone] Home care orders for Total Hip Replacements: [...] PT/INR results to be reported as follows: [facility] Orthopedic anticoagulation (Coumadin) clinic @ ; 2. [...] Questions: Responses: Agency name and contact information [employer] [facility] Patient location post discharge Home What services are requested Registered Nurse Physical Therapy Start date 02/07/2014 Responsible MD post discharge contact info PCP/[facility] Orthopaedic Service Primary Care Provider: NIRAV TURNER MD [phone] * Plan of Care - Marcelina Liu [...] 4:45 PM EDT Office of Care Management/Clinical Refined Syrup Operator (CRC)/Initial Assessment CRC Todd Matthew RN (pager [phone]) Patient: Alyssa Zamarripaofelia-Obed : 1945 (68 y.o.) Home: [place] [address]* LOS: 1 day Care reviewed with Dr. [...] directives: Received ?? Insurance coverage: Medicare AB, [employer] ?? Admission status: 02/04/14 IPI Order to Admit is appropriate and waiting to be signed by an attending provider; notified Dr. Steff Holland via email. ?? Anticipated barriers to discharge: None ?? Financial concerns: None ?? Identified patient/family concerns r/t discharge: None ?? Ammunition Officer referral indicated: No ?? Baseline functional status/mobility: Independent ?? Current home/community services/equipment: Walker ?? Current functional status/mobility: Walker with stand by assist ?? Anticipated discharge date: Tuesday 02/06 ?? Anticipated discharge place: Home into care of friend ?? Home health agency: [facility] RN/PT orders pended. ?? Transportation at discharge: Friend ?? PCP: NIRAV TURNER MD, Future Appointments Date Time Provider Department Center 03/11/2014 10:30 AM Betty Dong APRN [facility] [address] [place] [address] CLIN Plan: Care Management will continue to monitor progress, follow for continuity of care, and assist with discharge planning. * Initial Assessments - Good Orozco, OT - 02/05/2014 1:08 PM EDT Occupational Therapy Evaluation [facility]: [facility] 68 y.[facility]. female patient of [...] APPROACH performed by Steff Holland MD at [facility] Social History: Patient lives alone, however girlfriend will be staying with her for a week. Home Setup: one level, walk in (3 inch step) shower DME: shower chair, higher toilet seat with arms, visitor services associate, walker, cane Baseline ADL/Mobility: Independent with ADLS [...] eval Total timed interventions: 0 minutes Pager: [phone] GOOD OROZCO OT 02/05/2014 Occupational Therapy Rehabilitation [...] APPROACH performed by Steff Holland MD at [facility] Social History: Patient is but has a friend to stay with her at d/c. 1 step x 3 to enter. Ind amb RETORT COOLER Precautions/Special Considerations: WBAT L L/E, standard hip [...] treatment: 0 minutes zakiya FIELDS, PT Pager: [phone] * Plan of Care - Sofia Mills [...] EDT Brief Operative Note Patient Name: Alyssa BlandObed [facility]: [id number] MR#: [id number] Case Date: 02/04/2014 Surgeon: Surgeon(s) and Role: [...] Visit Endocrinology at [facility] [place] [address] Cornell [place] [address] Pending Results Name Type Priority Associated Diagnoses [...] Lab Steff Holland MD HEMATOLOGY ORDERABLE S CERMITCHELL GREENWOODENNIUM * (ABNORMAL) Hemogram (02/06/2014 3:35 AM EDT) [...] Spec In Lab Authorizing Provider Result Van Holland MD HEMATOLOGY ORDERABLE S Performing Organization Address [facility] de Phone Number CERMITCHELL GREENWOODENNIUM * (ABNORMAL) Prothrombin Time (02/06/2014 3:35 AM EDT) PT 17.8(H) 12.5 - 15.5 sec CERNER MILLENNIUM Comment: [facility] Transfusion Committee Guidelines: INR less than 2.0, [...] Spec In Lab Authorizing Provider Result Van Holland MD HEMATOLOGY ORDERABLE S Performing Organization Address [facility] de Phone Number CERMITCHELL GREENWOODENNIUM * (ABNORMAL) Basic Metabolic Panel (non-fasting) (02/06/2014 3:35 AM EDT) Glucose Lvl 121 60 - 199 mg/dL CERNER MILLENNIUM Comment:Diabetes: >=200 mg/d L plus symptoms BUN 7(L) 8 - 18 mg/dL CERNER MILLENNIUM Creatinine 0.63(L) 0.70 - 1.20 mg/dL CERNER MILLENNIUM Comment: Please note that the pediatric reference intervals supplied above were not validated at [facility]. Results from pediatric patients should be interpreted [...] the following links into your internet browser. [email or web address] Interactions/DHnkdep [email or web address] Interactions/DHMCnkf Blood specimen (specimen) 02/06/2014 3:35 AM EDT 02/06/2014 3:56 AM EDT Narrative Resulting Agency Comment Spec In Lab Steff Holland MD CHEMISTRY ORDERABLES CERMITCHELL LAMBERTIUM * (ABNORMAL) Differential, Automated (02/05/2014 3:21 AM [...] Lab Steff Holland MD HEMATOLOGY ORDERABLE S CERMITCHELL GREENWOODENNIUM * (ABNORMAL) Hemogram (02/05/2014 3:21 AM EDT) [...] Spec In Lab Authorizing Provider Result Van Holland MD HEMATOLOGY ORDERABLE S Performing Organization Address [facility] de Phone Number NOLA LAMBERTIUM * Prothrombin Time (02/05/2014 3:21 AM EDT) PT 14.6 12.5 - 15.5 sec [facility] MILLENNIUM Comment: [facility] Transfusion Committee Guidelines: INR less than 2.0, [...] Spec In Lab Authorizing Provider Result Van Holland MD HEMATOLOGY ORDERABLE S Performing Organization Address [facility] de Phone Number NOLA AGUILA * (ABNORMAL) Basic Metabolic Panel (non-fasting) (02/05/2014 3:21 AM EDT) Glucose Lvl 122 60 - 199 mg/dL [facility] MILLENNIUM Comment:Diabetes: >=200 mg/d L plus symptoms BUN 9 8 - 18 mg/dL [facility] MILLENNIUM Creatinine 0.69(L) 0.70 - 1.20 mg/dL [facility] MILL[facility]UM Comment: Please note that the pediatric reference intervals supplied above were not validated at [facility]. Results from pediatric patients should be interpreted in conjunction to the patient's age, height and muscle mass. Sodium 141 135 - 145 mmol/L [facility] MILLENNIUM Potassium 4.2 3.5 - 5.0 mmol/L [facility] MILLENNIUM Comment: Please note: ??Patients with WBC [...] the following links into your internet browser. [email or web address] Interactions/DHnkdep http://Urban Interactions/DHMCnkf Blood specimen (specimen) 02/05/2014 3:21 AM EDT 02/05/2014 3:40 AM EDT Narrative Resulting Agency Comment Spec In Lab Steff Holland MD CHEMISTRY ORDERABLES [facility] * Surgical Pathology Report (02/04/2014 1:10 PM EDT) Surgical Pathology Report ? [facility] ? Provider: ?? STEFF HOLLAND ? Pt. Name: ?? VADIM Ferrell, ALYSSA Hanna ? Acc #: ?[id number] ?Pt. ? Col Date: ?? 02/04/2014 ? /Sex: ?1945,(68 ? years),Female ? Rec Date: ?? 02/04/2014 ? LOC: ?3WST ? SURGICAL PATHOLOGY ? ---Pathologic Diagnosis--- ? A - Left femoral head, osteoarthitis. ?Gross surgical pathology examination. ? CR-0 ? 02/04/14 ? SHB ? 02/05/14 Verified by: ? Kenya Self DO. ? Pathologist ? (Electronic Signature) ? The [...] AMBER ? Clinical Diagnosis: ? Same NOLA AGUILA 02/04/2014 1:10 PM EDT Narrative Authorizing Provider Result Van Holland MD PATHOLOGY/CYTOLOGY Lenora KENNEDY Performing Organization Address [facility] de Phone Number NOLA AGUILA * Specimen to Pathology (surgical or derm) (02/04/2014 1:10 PM EDT) AP Specimen 02/04/2014 1:10 PM EDT 02/04/2014 1:10 PM EDT Narrative NOLA AYLA - 02/04/2014 1:10 PM EDT Specimen requisition ordered. ??Separate Pathology report to follow Authorizing Provider Result Van Holland MD PATHOLOGY/CYTOLOGY Lenora KENNEDY Performing Organization Address [facility] de Phone Number NOLA AGUILA documented in [...] Primary localized osteoarthrosis, pelvic region and thigh Pain in limb documented in this encounter Administered Medications Inactive Administered Medications - up to 3 most recent administrations Medication Order MAR Action Action Date Dose Rate Site bacitracin injection ONCE PRN, Starting on Sun02/04/14 at 1301, Until Sun02/04/14 at 1449, Intra-Operative (Intra-Procedure), Routine Given 02/04/2014 1:01 PM EDT 50,000 Units 19- Surgical Site BUpivacaine-EPINEPHri ne 0.25 %-1:200,000 injection ONCE PRN, Starting on Sun02/04/14 at 1301, Until Sun02/04/14 at 1449, Intra-Operative (Intra-Procedure), Routine Given 02/04/2014 1:01 PM EDT 10 mLs 19- Surgical Site documented in this encounter Active and Recently [...] Procedure), Routine 1035 (Given - Provider: Chey Welch, DALILA) ceFAZolin (ANCEF) 2g in dextrose 5% 50 [...] 220 mcg/actuation 2 puff twice daily, Routine 2205 (Given - Provider: Sofia Mills, DALILA) 0835 (Given - Provider: Marcelina Liu RN)2037 [...] 48 hours, AND 2. Without straining, Routine 2202 (Given - Provider: Sofia Mills RN) 0831 (Not Given - Provider: Marcelina Liu RN - Reason: Patient/family refused)2036 (Given - Provider: Lindsey Murphy, RN) 0900 (Not Given - Provider: Ladonna Daugherty, [...] Ashly Dong RN - Comment: Done by [facility] Nurse.) sodium chloride 0.9 % flush 5 mL (CANCELED) 5 mL, Intravenous, 2 TIMES DAILY, First dose on Sun02/04/14 at 2100, Until Discontinued, Routine 2206 (Given - Provider: Sofia Mills RN) 0835 (Given - Provider: Marcelina Liu RN)0 (Given - Provider: Lindsey Murphy, DALILA) 0848 [...] 1238 (New Bag - Provider: Kingsley Degroot, JUANCHO) warfarin (COUMADIN) tablet 5 mg (COMPLETED) 5 [...] 02/04/2014 02/05/2014 02/06/2014 HYDROmorphone (DILAUDID) 1 mg/mL EGG SMELLER 30 mL (CANCELED) Intravenous, EGG SMELLER ONLY, Starting on Sun02/04/14 at 1515, Until [...] Sofia Mills RN)1009 (Given - Provider: Marcelina Liu RN - Comment: 2/10 at rest, 6-7/10 when moving)163 (Given - Provider: Marcelina Liu RN - Comment: 4/5 when moving, 2/10 at rest)2036 (Given - Provider: Lindsey Murphy RN) 003 (Given - Provider: Lindsey Murphy, RN)0523 (Given - Provider: Lindsey Murphy, RN)1155 (Given - Provider: Ladonna Daugherty RN) ondansetron (ZOFRAN) injection 4 mg (CANCELED) 4 [...] Starting on Anna 02/05/14 at 0553, Until 7/25/14 at 1627, Pain, for severe pain, May [...] Unit) documented in this encounter Care Teams Foreign Service Teacher Relationship Specialty Start Date End Date Nirav Turner MD [address] [place] [address] PCP - General 06/07/10 03/24/18 documented as of this encounter
--- OUTSIDE RECORDS SUMMARY | 2024-01-25 00:29 | XMS_ITS | Encounter Summary ---
Author Organization [facility] Address [facility] [place] [address] Care Team Providers Care Position Description Manager Name Role Phone Jamarcus Rodriguez MD Primary Care Provider [phone] Encounter Details Date Type Department Care Team (Late st Contact Info) Description 02/04/2014 12:23 PM EDT Anesthesia Event [place] [id number] Alexandra Stone MD [facility] [place] [address] Anesthesia Record Procedure Summary Procedure Name Responsible Anesthesiologist Anesthesia Start Time Anesthesia Stop Time TOTAL HIP ARTHROPLASTY, ANTERIOR APPROACH (WRVU 19.6) (Left: Hip) Alexandra Stone MD 02/04/14 1223 02/04/14 1421 Events Date Time Event Comment 02/04/2014 1208 1223 Start 1227 AN Verify 1227 An Start Data 1239 Anesthesia Ready 1255 Break/Relief In Josias Arturo Breen x, MONTESSORI PRESCHOOL TEACHER 1414 an stop data 1421 Stop Meds Name Total Midazolam 4 mg fentaNYL 25 mcg propofol 20 mg propofol INF 247.39 mg ceFAZolin (ANCEF) 2g in dextrose 5% 50 m L 2 g tranexamic acid (CYKLOKAPRON) 1,060 mg i n sodium chloride 0.9% 110.6 mL 1,064 mg ePHEDrine 25 mg PHENYLephrine 240 mcg lactated ringers infusion 1,000 mL 0 mL * Agents Name O2 N2O Sevoflurane (et) O2 Auxiliary Flowmeter 1 * Blood No blood administrations on file. Lines, Drains, and Airways Type Details Placement Removal (RETIRED) Peripheral IV Line - Single Lumen 02/04/14; 1104; cephalic vein left (lateral side of arm); [id number] catheter system; 20 gauge, 1 in length; intradermal injection, tolerated well, appears comfortable, age-appropriate response; 02/06/14; 1417 02/04/14 1104 by Chey Welch RN 02/06/14 1417 by Susan Daugherty RN Urethral Catheter 02/04/14; 1245; indwelling double lumen catheter; 100% silicone; 16; inserted at this facility (by Josue Shankar RN); 1; 5; 10; none; drainage bag to dependent drainage; Prepped area with Karson's baby shampoo instead of betadine d/t iodine allergy.; 02/05/14; 0600 02/04/14 1245 by Ryley Shankar RN 02/05/14 0600 by Lindsey Estrada, GLASS CUTTING MACHINE OPERATOR Incision 02/04/14; 1303; hip; 04/01/18; 1525 02/04/14 1303 by Ryley Shankar RN 04/01/18 1525 by Nancy Persaud RN documented in this [...] OR Notes * Anesthesia Postprocedure Evaluation - Alexandra Stone MD - 02/04/2014 3:01 PM EDT Patient: Alyssa Bland-Obed Procedure(s) Performed: Procedure(s): @TOTAL HIP ARTHROPLASTY, ANTERIOR APPROACH MODIFIER CORAIL FEMORAL STEM DEPUY MODIFIER PINNACLE ACETABULUM DEPUY Actual Anesthetic: spinal Patient location: PACU Post-op pain: Adequate analgesia. Spinal is still wearing off. No signs of complications at this time. Post-op nausea: no nausea or vomiting Last Vitals: Filed Vitals: 02/04/14 1430 BP: 112/58 Pulse: 70 Temp: Resp: 20 Post-op cardiovascular and respiratory status: is stable Level of consciousness: awake, alert and oriented Complications: no apparent complications and tolerated the procedure well Fluid Status: normal * Anesthesia Procedure Notes - Alexandra Stone MD - 02/04/2014 1:06 PM EDT Associated Order(s): ANE NEURAXIAL UPDATED Procedure: Neuraxial Block Primary Anesthetic Type: Spinal The patient was greeted; the risks and benefits were reviewed. The anesthetic consent was obtained.The medical history and chart were reviewed. The timeout was performed. Start time: 02/04/2014 12:32 PM End time: 02/04/2014 12:37 PM Patient Location: Operating Room Patient Prep Position: Sitting Prep: Hand Hygiene, Hat, Mask, Sterile Gloves, Chlorhexidine and Patient Draped Injection technique: single-shot Skin Anesthetic Lidocaine 1% 3 ml Procedure Technique Level of needle insertion: L3-4 Needle Type: Hildaacastarla Gauge: 25 Needle length: 5 in Number of attempts: 1 Intrathecal Injection The patient received the following medication/s as an intrathecal injection: Bupivacaine 0.5% 2.5 ml Events/Notes Events: None Performed by: Chase Supervising Attending/Fellow: Chase ~~~~~~~~~~~~~~~~~~~~~~~~~~~~~~~~~~~~~~~~~~~~~~~~~~~~~~~~~~~~ * Anesthesia Preprocedure Evaluation - Alexandra Stone MD - 02/04/2014 12:07 PM EDT Pre-Anesthesia Evaluation for: Alyssa Bland-Obed a 68 y.o. female. Procedure(s): @TOTAL HIP ARTHROPLASTY, ANTERIOR APPROACH MODIFIER CORAIL FEMORAL STEM DEPUY MODIFIER PINNACLE ACETABULUM DEPUY Patient Active Problem List Diagnosis ??? Status post right hip replacement, Dr. Morales 2008 ??? Primary osteoarthritis of left hip ??? CIS - Entered not Verified ??? CIS - Arthritis ??? CIS - GERD ??? CIS - HTN ??? CIS - hyperlipidemia ??? CIS - reactive airway disease No past medical history on file. Past Surgical History Procedure Date ??? Created by interface Entered not Verified Procedure Date: 09/02/2010 ??? Created by interface TOTAL HIP ARTHROPLASTY / RIGHT/PINNACLE BRAYDON./S-ROM FEMORAL Procedure Date: 12/02/2008 History Substance Use Topics ??? Smoking status: Former Smoker ??? Smokeless tobacco: Never Used Comment: in college ??? Alcohol Use: No History Drug Use No Allergies Allergen [...] >3 FB Neck ROM: full Cardiovascular Assessment: Rhythm: regular cardiovascular exam normal Pulmonary Assessment: pulmonary exam normal Dental Assessment: - normal exam Misc Assessment: Anesthesia Plan: ASA 2 spinal, Patient requests spinal Plan: spinal, TXA per surgery Region - Other Informed Consent: Anesthetic plan and risks discussed with patient. Use of blood products discussed with patient whom consented to blood products. Plan discussed with MONTESSORI PRESCHOOL TEACHER and attending. Misc. Assessment: documented in this encounter Plan of Treatment Upcoming Encounters Date Type Department Care Team (Late st Contact Info) Description 02/26/2024 10:15 AM EDT Office [place] [address] Cornell Harper MD [facility] M[place] [address] documented as of this encounter Procedures Procedure Name Priority Date/Time Associated Diagnosis Comments ANE NEURAXIAL UPDATED Routine 02/04/2014 1:07 PM EDT documented in this encounter Results * ANE NEURAXIAL UPDATED (02/04/2014 1:07 PM EDT) Narrative Alexandra Stone MD - 02/04/2014 1:07 PM EDT Alexandra Stone MD ? 02/04/2014 ??1:07 PM Procedure: ?? Neuraxial Block Primary Anesthetic Type: Spinal The patient was greeted; the risks and benefits were reviewed. ?? The anesthetic consent was obtained. ??The medical history and chart were reviewed. ??The timeout was performed. Start time: 02/04/2014 12:32 PM End time: 02/04/2014 12:37 PM Patient Location: Operating Room Patient Prep Position: Sitting Prep: Hand Hygiene, Hat, Mask, Sterile Gloves, Chlorhexidine and Patient Draped Injection technique: single-shot Skin Anesthetic Lidocaine 1% ??3 ml Procedure Technique Level of needle insertion: L3-4 Needle Type: [employer] Gauge: 25 Needle length: 5 in Number of attempts: 1 Intrathecal Injection The patient received the following medication/s as an intrathecal injection: Bupivacaine 0.5% 2.5 ml Events/Notes Events: ??None Performed by: ??Chase Supervising Attending/Fellow: ??Chase ~~~~~~~~~~~~~~~~~~~~~~~~~~~~~~~~~~~~~~~~~~~~~~~~~~~~~~~~~~~~ Procedure Note Alexandra Stone MD - 02/04/2014 1:06 PM EDT Procedure: Neuraxial Block Primary Anesthetic Type: Spinal The patient was greeted; the risks and benefits were reviewed. Theanesthetic consent was obtained. The medical history and chart werereviewed. The timeout was performed. Start time: 02/04/2014 12:32 PM End time: 02/04/2014 12:37 PM Patient Location: Operating Room Patient Prep Position: Sitting Prep: Hand Hygiene, Hat, Mask, Sterile Gloves, Chlorhexidine and PatientDraped Injection technique: single-shot Skin Anesthetic Lidocaine 1% 3 ml Procedure Technique Level of needle insertion: L3-4 Needle Type: [employer] Gauge: 25 Needle length: 5 in Number of attempts: 1 Intrathecal Injection The patient received the following medication/s as an intrathecalinjection: Bupivacaine 0.5% 2.5 ml Events/Notes Events: None Performed by: Chase Supervising Attending/Fellow: Chase ~~~~~~~~~~~~~~~~~~~~~~~~~~~~~~~~~~~~~~~~~~~~~~~~~~~~~~~~~~~~ Alexandra Stone MD STATEMENT CLERKS SUPERVISOR [facility] documented in this encounter Visit Diagnoses Not on filedocumented in this encounter Administered Medications Inactive Administered Medications - up to 3 most recent administrations Medication Order MAR Action Action Date Dose Rate Site ceFAZolin (ANCEF) 2g in dextrose 5% 50 mL 2 g, Intravenous, ONCE, 1 dose, On Sun02/04/14 at 1045, To be administered upon arrival to the OR within one hour prior to incision., Day of Surgery (Day of Procedure), Indication for (Active or Suspected): Prophylaxis Given 02/04/2014 12:31 PM EDT 2 g ePHEDrine Sulfate in sodium chloride 0.9% (PF) 50 mg/10 mL (5 mg/mL) injection Syrg PRN, Starting on Sun02/04/14 at 1309, Until Sun02/04/14 at 1501, Anesthesia Intra-op Given 02/04/2014 1:34 PM EDT 5 mg Given 02/04/2014 1:24 PM EDT 10 mg Given 02/04/2014 1:19 PM EDT 5 mg fentaNYL 50mcg/mL injection PRN, Starting on Sun02/04/14 at 1242, Until Sun02/04/14 at 1501, Pain, Anesthesia Intra-op, Routine Given 02/04/2014 12:42 PM EDT 25 mcg lactated ringers infusion 1,000 mL 1,000 mL, at 100 mL/hr, Intravenous, CONTINUOUS, Starting on Sun02/04/14 at 1045, Until Sun02/04/14 at 1449, Day of Surgery (Day of Procedure) New Bag 02/04/2014 1:19 PM EDT mL New Bag 02/04/2014 11:06 AM EDT 1,000 mLs 100 mL/hr midazolam (PF) (VERSED) 1 mg/mL injection PRN, Starting on Sun02/04/14 at 1231, Until Sun02/04/14 at 1501, Sleep, Anesthesia Intra-op, Routine Given 02/04/2014 12:31 PM EDT 2 mg Given 02/04/2014 12:24 PM EDT 2 mg PHENYLephrine HCl in NS (PF) (LIOR-SYNEPHRINE) 0.8 mg/10 mL (80 mcg/mL) injection Syrg PRN, Starting on Sun02/04/14 at 1334, Until Sun02/04/14 at 1501, Anesthesia Intra-op, Routine Given 02/04/2014 2:08 PM EDT 80 mcg Given 02/04/2014 1:43 PM EDT 80 mcg Given 02/04/2014 1:34 PM EDT 80 mcg propofol (DIPRIVAN) 10 mg/mL bolus injection (Anesthesia) PRN, Starting on Sun02/04/14 at 1251, Until Sun02/04/14 at 1501, Anesthesia Intra-op Given 02/04/2014 12:51 PM EDT 20 mg propofol (DIPRIVAN) infusion CONTINUOUS PRN, Starting on Sun02/04/14 at 1251, Until Sun02/04/14 at 1501, Anesthesia Intra-op, Routine Rate/Dose Change 02/04/2014 1:25 PM EDT 40 mcg/kg/min 17.2 mL/hr New Bag 02/04/2014 12:51 PM EDT 50 mcg/kg/min 21.5 mL/h r tranexamic acid (CYKLOKAPRON) 1,060 mg in sodium chloride 0.9% 110.6 mL 1,060 mg (15 mg/kg/dose ? 70.9 kg), Intravenous, ONCE, 1 dose, On Sun02/04/14 at 1045, Administer over 30 Minutes, Dilute tranexamic acid dose in 100 mL sodium chloride 0.9% prior to administration. For patients less than or equal to 200 kg infuse over 30 minutes. For patients greater than 200 kg infuse over 60 minutes., Day of Surgery (Day of Procedure) New Bag 02/04/2014 12:38 PM EDT 1,064 mg documented in this encounter Care Teams Position Description Manager Relationship Specialty Start Date End Date Jamarcus Rodriguez MD [address] [place] [address] PCP - General 06/07/10 03/24/18 documented as of this encounter
--- OUTSIDE RECORDS SUMMARY | 2024-01-25 00:29 | XMS_ITS | Encounter Summary ---
Author Organization [facility] [place] [address] Care Team Providers Care High Rigger Name Role Phone Jamarcus Rodriguez MD Primary Care Provider Reason for Visit * Reason Comments Other Encounter Details Date Type Department Care Team (Late Contact Info) Description 01/13/2014 Telephone [place] [phone] Lance Holland MD [address] [place] [address] Social History Tobacco Use Types Packs/Day Years [...] encounter Miscellaneous Notes * Telephone Encounter - Susan Miller LPN - 01/13/2014 9:20 AM EDT Mupirocin sent to patient's home, 01/13/14. documented in this encounter Plan of Treatment Upcoming Encounters Date Type Department Care Team (Late st Contact Info) Description 02/26/2024 10:15 AM EDT Office Visit Endocrinology at [facility] [place] [address] Cornell Harper MD [facility] [place] [address] documented as of this encounter Visit Diagnoses Not on filedocumented in this encounter Care Teams High Rigger Relationship Specialty Start Date End Date Jamarcus Rodriguez MD [address] [place] [address] PCP - General 06/07/10 03/24/18 documented as of this encounter
--- OUTSIDE RECORDS SUMMARY | 2024-01-25 00:29 | XMS_ITS | Encounter Summary ---
Author Organization [facility] Address [facility] [place] [address] Care Team Providers Care Carpet Cutter Name Role Phone Jamarcus Rodriguez MD Primary Care Provider [phone] Encounter Details Date Type Department Care Team (Latest Contact Info) Description 12/29/2013 11:22 AM EDT - 12/29/2013 11:59 PM EDT Hospital Encounter XRay at [facility] [place] [phone] Pain in left hip Social History Tobacco [...] Sig Dispensed Refills Start Date End Date acyclovir (ZOVIRAX) 800 mg tablet Take 800 [...] fluticasone (FLOVENT HFA) 220 mcg/Actuation inhaler 09/02/2010 cyanocobalamin 1,000 mcg tablet Take 1,000 mcg by mouth daily. 07/03/2018 lovastatin (MEVACOR) 40 mg tablet Take 80 mg by mouth nightly. 02/02/2014 acetaminophen (TYLENOL) 650 mg CR tablet Take 650 mg by mouth every 8 hours as needed. Do not exceed 6 tabs in 24 hours 02/06/2014 omeprazole (PRILOSEC OTC) 20 mg tablet 09/02/2010 02/02/2014 documented as of this encounter Plan of Treatment Upcoming Encounters Date Type Department Care Team (Late st Contact Info) Description 02/26/2024 10:15 AM EDT Office Visit Endocrinology at [facility] [place] [address] Cornell Harper MD [facility] [place] [address] documented as of this encounter Procedures Procedure Name Priority Date/Time Associated Diagnosis Comments XR PELVIS AP AND 2 VIEWS BOTH HIPS Routine 12/29/2013 11:34 AM EDT documented in this encounter Results * XR pelvis AP and 2 views both hips (12/29/2013 11:34 AM EDT) Anatomical Region Laterality Modality Pelvis, Hip N/A Radiographic Shantal ging 12/29/2013 11:3 4 AM EDT Narrative 12/29/2013 11:37 AM EDT Examination AP PELVIS AND TWO VIEWS BOTH HIPS Clinical History LEFT HIP PAIN bilat hip pain Comparison Multiple examination since 2008. Technique Findings Right total hip arthroplasty without change in appearance and alignment. No radiolucencies or periprosthetic fracture. ??There is unchanged pedestal formation at the tip of the femoral stem. Progression of left hip osteoarthropathy with further loss of left hip joint space, increased subchondral sclerosis and large osteophytes. ??unchanged heterotopic bone formation around the right greater trochanter. Impression ? 1. Uncomplicated right total hip arthroplasty. ? 2. Progression of left hip joint osteoarthropathy with further loss of left hip joint space. Procedure Note Vibha Petersen MD - 12/29/2013 Examination AP PELVIS AND TWO VIEWS BOTH HIPS Clinical History LEFT HIP PAIN bilat hip pain Comparison Multiple examination since 2008. Technique Findings Right total hip arthroplasty without change in appearance and alignment.No radiolucencies or periprosthetic fracture. There is unchanged pedestal formation at the tip of the femoral stem. Progression of left hip osteoarthropathy with further loss of left hipjoint space, increased subchondral sclerosis and large osteophytes. unchanged heterotopic bone formation around the right greater trochanter. Impression 1. Uncomplicated right total hip arthroplasty. 2. Progression of left hip joint osteoarthropathy with further lossof left hip joint space. Lance Hloland MD IMG DX ORDERABLES documented in this encounter Visit Diagnoses Diagnosis Pain in left hip Pain in joint, pelvic region and thigh documented in this encounter Care Teams Carpet Cutter Relationship Specialty Start Date End Date Jamarcus Rodrigeuz MD [address] [place] [address] PCP - General 06/07/10 03/24/18 documented as of this encounter
--- OUTSIDE RECORDS SUMMARY | 2024-01-25 00:29 | XMS_ITS | Encounter Summary ---
[place] [address] Care Team Providers Care Splitting Machine Operator Helper Name Role Phone Jamarcus Rodriguez MD Primary Care Provider [phone] Encounter Details Date Type Department Care Team (Latest Contact Info) Description 02/26/2014 Anti-Coag Telephone [place] [address] Betty Langford, RN Status post right hip [...] Progress Notes * Betty Langford, RN - 02/26/2014 1:23 PM EDT Anticoagulation Therapy Nurse Visit Alyssa [place] 1945 Surgeon: Lance Holland MD Indication: DVT Prophylaxis S/P Joint Replacement - 02/04/14 Dr. Holland Left Anterior AMBER Duration of Treatment: 28 days ends: After 03/04/14 dose Therapeutic Range: 2.0-3.0 INR: 2.2 Drawn by: [place] [facility] Bleeding: Epistaxis Black tarry stools Gingival bleeding [...] 10:15 AM EDT Office Visit Endocrinology at [facility] [place] [address] Cornell Harper MD [facility] [place] [address] documented as of this encounter Procedures Procedure Name Priority Date/Time Associated Diagnosis Comments EXTERNAL LAB RESULTS Routine 02/26/2014 documented in this encounter Results * (ABNORMAL) External Lab Results (02/26/2014) POC INR 2.0(Externa l Lab) 0.9 - 1.1 02/26/2014 Historical Provider CHEMISTRY ORDERAB LES documented in this encounter Visit Diagnoses Diagnosis Status post right hip replacement Hip joint replacement by other means documented in this encounter Care Teams Splitting Machine Operator Helper Relationship Specialty Start Date End Date Jamarcus Rodriguez MD [address] [place] [address] PCP - General 06/07/10 03/24/18 documented as of this encounter
--- OUTSIDE RECORDS SUMMARY | 2024-01-25 00:29 | XMS_ITS | Encounter Summary ---
[place] [address] Care Team Providers Care Edging Catcher Name Role Phone Jamarcus Rodriguez MD Primary Care Provider [phone] Encounter Details Date Type Department Care Team (Latest Contact Info) Description 03/02/2014 Anti-Coag Telephone Visit [place] [phone] Julio Rader RN Status post right hip [...] Progress Notes * Julio Cuevas, RN - 03/02/2014 2:23 PM EDT Anticoagulation Therapy Nurse Visit Alyssa Burnham 1945 Surgeon: Lance Holland MD Indication: DVT Prophylaxis S/P Joint Replacement - 02/04/14 Dr. Holland Left Anterior AMBER Duration of Treatment: 28 days ends: After 03/04/14 dose. No ASA Therapeutic Range: 2.0-3.0 INR: 1.9 Drawn by: [place] [facility] Bleeding: Epistaxis Black tarry stools Gingival [...] Endocrinology at [facility] [place] [address] Cornell Harper MD [facility] [place] [address] documented as of this encounter Procedures Procedure Name Priority Date/Time Associated Diagnosis Comments EXTERNAL LAB RESULTS Routine 03/02/2014 documented in this encounter Results * (ABNORMAL) External Lab Results (03/02/2014) POC INR 1.9(Lubrication Servicer al Lab) 0.9 - 1.1 Comment:[facility] Historical Provider CHEMISTRY ORDERAB LES documented in this encounter Visit Diagnoses Diagnosis Status post right hip replacement Hip joint replacement by other means documented in this encounter Care Teams Edging Catcher Relationship Specialty Start Date End Date Jamarcus Rodriguez MD [address] [place] [address] PCP - General 06/07/10 03/24/18 documented as of this encounter
--- OUTSIDE RECORDS SUMMARY | 2024-01-25 00:29 | XMS_ITS | Encounter Summary ---
Author Organization [facility] Address [facility] [place] [address] Care Team Providers Care Visual Training Aide Name Role Phone Jamarcus Rodriguez MD Primary Care Provider [phone] Encounter Details Date Type Department Care Team (Late st Contact Info) Description 01/13/2014 Orders [place] [address] Lance Holland MD [address] [place] [address] [place] [address] OA (osteoarthritis) (Primary Dx) Social History Tobacco Use Types Packs/Day Years [...] 10:15 AM EDT Office [place] [address] Cornell Harper MD [facility] [place] [address] documented as of this encounter Visit Diagnoses Diagnosis OA (osteoarthritis)- Primary Osteoarthrosis, unspecified whether generalized or localized, unspecified site documented in this encounter Care Teams Visual Training Aide Relationship Specialty Start Date End Date Jamarcus Rodriguez MD [address] [place] [address] PCP - General 06/07/10 03/24/18 documented as of this encounter
--- OUTSIDE RECORDS SUMMARY | 2024-01-25 00:29 | XMS_ITS | Encounter Summary ---
[place] [address] Care Team Providers Care Assistant Merchandise Manager Name Role Phone Jamarcus Rodriguez MD Primary Care Provider [phone] Encounter Details Date Type Department Care Team (Latest Contact Info) Description 02/16/2014 Anti-Coag Telephone [place] [phone] Julio Rader RN Status post right hip [...] Progress Notes * Julio Cuevas, RN - 02/16/2014 3:50 PM EDT Anticoagulation Therapy Nurse Visit Alyssa Burnham 1945 Surgeon: Lance Holland MD Indication: DVT Prophylaxis S/P Joint Replacement - 02/04/14 Dr. Holland Left Anterior AMBER Duration of Treatment: 28 days ends: After 03/04/14 dose Therapeutic Range: 2.0-3.0 INR: 2.1 Drawn by: Greg Escobedo [facility] Patient presents with no signs of [...] 10:15 AM EDT Office Visit Endocrinology at [facility] [place] [address] Cornell Harper MD [facility] [place] [address] documented as of this encounter Procedures Procedure Name Priority Date/Time Associated Diagnosis Comments EXTERNAL LAB RESULTS Routine 02/16/2014 documented in this encounter Results * (ABNORMAL) External Lab Results (02/16/2014) POC INR 2.1(Manager Of Administration al Lab) 0.9 - 1.1 Comment:[facility] Historical Provider CHEMISTRY ORDERAB LES documented in this encounter Visit Diagnoses Diagnosis Status post right hip replacement Hip joint replacement by other means documented in this encounter Care Teams Assistant Merchandise Manager Relationship Specialty Start Date End Date Jamarcus Rodriguez MD [address] [place] [address] PCP - General 06/07/10 03/24/18 documented as of this encounter
--- OUTSIDE RECORDS SUMMARY | 2024-01-25 00:30 | XMS_ITS | Encounter Summary ---
Author Organization [facility] Address [facility] [place] [address] Care Team Providers Care Independent Driver Name Role Phone Jamarcus Rodriguez MD Primary Care Provider [phone] Encounter Details Date Type Department Care Team (Late st Contact Info) Description 09/02/2010 3:20 PM EST Procedure visit [address] [address] Social History Tobacco Use Types Packs/Day Years Used Date Smoking Tobacco: Never Assessed Sex and Gender Information Value Date Recorded Sex Assigned at Not on file Gender Identity Not on file Sexual Orientation Not on file documented as of this encounter Plan of Treatment Upcoming Encounters Date Type Department Care Team (Late st Contact Info) Description 02/26/2024 10:15 AM EDT Office [place] [address] Cornell Harper MD [facility] [place] [address] documented as of this encounter Visit Diagnoses Not on filedocumented in this encounter Care Teams Independent Driver Relationship Specialty Start Date End Date Jamarcus Rodriguez MD [address] [place], [place] [id number] PCP - General 06/07/10 03/24/18 documented as of this encounter
--- OUTSIDE RECORDS SUMMARY | 2024-01-25 00:30 | XMS_ITS | Encounter Summary ---
Author Organization [facility] Address [facility] [place] [address] Care Team Providers Care Placement Manager Name Role Phone Jamarcus Rodriguez MD Primary Care Provider [phone] Encounter Details Date Type Department Care Team (Late st Contact Info) Description 03/21/2012 2:14 PM EDT - 03/21/2012 3:59 PM EDT Hospital Encounter [place] [facility] [address] [facility] [id number] Left hip pain Social History Tobacco Use Types Packs/Day Years [...] Office Visit Endocrinology at [place] [address] Harper MD [facility] [place] [address] documented as of this encounter Procedures Procedure Name Priority Date/Time Associated Diagnosis Comments XR PELVIS AND HIP BILAT (GENERIC) Routine 03/21/2012 2:29 PM EDT Pain in joint, pelvic region and thigh documented in this encounter Results * XR PELVIS 1 VIEW & HIPS 1 VIEW EACH (03/21/2012 2:29 PM EDT) Anatomical Region Laterality Modality Pelvis, Hip Bilateral Radiographic Shantal ging 03/21/2012 2:29 PM EDT Narrative 03/21/2012 5:28 PM EDT Examination 1 VIEW PELVIS AND 1 VIEW EACH HIP/BILAT Clinical History sp rt thr left hip pain sp fall two days ago Comparison 09/02/2010, 12/24/2009. Technique AP pelvis, lateral view both hips. Findings The patient is status post right total hip arthroplasty. ??No periprosthetic fracture dislocation is identified. ??Interval development of pedestal formation and minimal 1 mm radiolucency about the distal femoral stem in the interval, suggestive of early loosening. ??Small mild heterotopic bone formation about the right greater trochanter is similar to prior. ??Mild to moderate left hip joint degenerative change with minimal joint space narrowing and prominent femoral head osteophyte formation is similar to previous. ??No left sided pelvic or femoral fracture is identified. Impression ? 1. No fracture or dislocation identified. ? 2. Status post right total hip arthroplasty with interval development of pedestal formation and 1 mm radiolucency about the distal femoral stem, findings suggestive of early loosening. ??Attention on follow up is advised. ? 3. Unchanged mild to moderate left hip joint osteoarthritis. Procedure Note Kaushik Dunham MD - 03/21/2012 Examination 1 VIEW PELVIS AND 1 VIEW EACH HIP/BILAT Clinical History sp rt thr left hip pain sp fall two days ago Comparison 09/02/2010, 12/24/2009. Technique AP pelvis, lateral view both hips. Findings The patient is status post right total hip arthroplasty. Noperiprosthetic fracture dislocation is identified. Interval development of pedestalformation and minimal 1 mm radiolucency about the distal femoral stem in theinterval, suggestive of early loosening. Small mild heterotopic bone formationabout the right greater trochanter is similar to prior. Mild to moderate left hipjoint degenerative change with minimal joint space narrowing and prominentfemoral head osteophyte formation is similar to previous. No left sided pelvic or femoral fracture is identified. Impression 1. No fracture or dislocation identified. 2. Status post right total hip arthroplasty with interval developmentof pedestal formation and 1 mm radiolucency about the distal femoral stem, findings suggestive of early loosening. Attention on follow up isadvised. 3. Unchanged mild to moderate left hip joint osteoarthritis. Moustapha Morales MD IMG DX ORDERABLES documented in this encounter Visit Diagnoses Diagnosis Left hip pain Pain in joint, pelvic region and thigh documented in this encounter Care Teams Placement Manager Relationship Specialty Start Date End Date Jamarcus Rodriguez MD [address] [place] [address] PCP - General 06/07/10 03/24/18 documented as of this encounter
--- OUTSIDE RECORDS SUMMARY | 2024-01-25 00:30 | XMS_ITS | Encounter Summary ---
Author Organization [facility] Address [address] [place] [address] Care Team Providers Care Sales Operations Analyst Name Role Phone Unavailable Primary Care Provider Unavailabl e Encounter Details Date Type Department Care Team (Late st Contact Info) Description 03/01/2001 Results Only [facility] [address] [place] [address] Cyndi Lorenz MD Social History Tobacco Use Types Packs/Day Years Used Date Smoking Tobacco: Never Assessed Sex and Gender Information Value Date Recorded Sex Assigned at Not on file Gender Identity Not on file Sexual Orientation Not on file documented as of this encounter Plan of Treatment Not on file documented as of this encounter Procedures Procedure Name Priority Date/Time Associated Diagnosis Comments CYTOPATHOLOGY Routine 03/01/2001 0:00 EDT documented in this encounter Results * CYTOPATHOLOGY (03/01/2001 0:00 EDT) Pathology Report: CYTOPATHOLOGY REPORT Reports generated via electronic interface contain original data; however they are lacking the format of the original report. Caution should be taken when reading/interpreti ng unformatted reports. Name: ? ALYSSA DUBOIS ? Accession #: ? [id number] : ? 1945 (Age: 55) ??F ?Collect Date: ? 03/01/2001 Location: ? [facility] ? Receive Date: ? 03/06/2001 Provider: ?CYNDI LORENZ MD Copy to: ? [facility] ? [facility] ? [address] ? [place] [address] ? Specimen/Source: ?ThinPrep Pap Test, Source Not Provided Last Menstrual Period: ? 2 weeks ago. ? SPECIMEN ADEQUACY ? Satisfactory for evaluation but limited by an absence of a transformation zone component. GENERAL CATEGORIZATION ? Within Normal Limits ? Document reviewed and electronically signed by: ? MARIANNE Frausto(ASCP) ? Report Date: ??03/08/2001 13:26 End of Report [facility] 03/01/2001 03/06/2001 Cyndi Lorenz MD PATHOLOGY ORDER PATRICIA [facility] [address] [place] [address] documented in this encounter Visit Diagnoses Not on filedocumented in this encounter
--- OUTSIDE RECORDS SUMMARY | 2024-01-25 00:30 | XMS_ITS | Encounter Summary ---
Author Organization [facility] Address [address] [place] [address] Care Team Providers Care Sponsorship Coordinator Name Role Phone Unavailable Primary Care Provider Unavailabl e Encounter Details Date Type Department Care Team (Late st Contact Info) Description 11/16/2006 Results Only [facility] - [facility] conversion [address] [place] [address] Alvin Jauregui MD Social History Tobacco Use Types Packs/Day Years Used Date Smoking Tobacco: Never Assessed Sex and Gender Information Value Date Recorded Sex Assigned at Not on file Gender Identity Not on file Sexual Orientation Not on file documented as of this encounter Plan of Treatment Not on file documented as of this encounter Procedures Procedure Name Priority Date/Time Associated Diagnosis Comments CYTOPATHOLOGY Routine 11/16/2006 0:00 EDT documented in this encounter Results * CYTOPATHOLOGY (11/16/2006 0:00 EDT) Pathology Report: CYTOPATHOLOGY REPORT Reports generated via electronic interface contain original data; however they are lacking the format of the original report. Caution should be taken when reading/interpreti ng unformatted reports. Name: ? ALYSSA DUBOIS ? Accession #: ? [id number] : ? 1945 (Age: 61) ??F ?Collect Date: ? 11/16/2006 Location: ? [facility] ? Receive Date: ? 11/19/2006 Provider: ? ALVIN JAUREGUI MD Copy to: ? CYTOLOGIC DIAGNOSIS: ? Urine, voided, cytologic evaluation: 1. ?Negative for malignant cells. 2. ? Abundant squamous component consistent with external contamination. Document reviewed and electronically signed by: ? Yenny Turner MD PhD Report Date: ??11/20/2006 09:06 By the signature above, the attending physician certifies that he/she has personally conducted a gross and/or microscopic examination of the described specimens and rendered or confirmed the above diagnosis. Specimen Type: ? Urine, Voided Clinical History: ? Hematuria; clinical diagnosis code: 599.7 ? Gross Description: ? 20cc' s of opaque yellow fluid were received and processed by selective cellular enhancement technique. ? End of Report SHASHANK MARINA 11/16/2006 11/19/2006 8:5 4 EDT Alvin Jauregui MD PATHOLOGY ORDERABLES Performing Organization Address City/State/[facility] Co de Phone Number [facility] [address] [place] [address] documented in this encounter Visit Diagnoses Not on filedocumented in this encounter
--- OUTSIDE RECORDS SUMMARY | 2024-01-25 00:30 | XMS_ITS | Encounter Summary ---
Author Organization [facility] Address [facility] [place] [address] Care Team Providers Care Safety Attendant Name Role Phone Jamarcus Rodriguez MD Primary Care Provider [phone] Encounter Details Date Type Department Care Team (Late st Contact Info) Description 09/02/2010 4:20 PM EST [place] [phone] Moustapha Morales MD [facility] [place] [address] Discharge Disposition: Home Social History Tobacco Use [...] 10:15 AM EDT Office [place] [phone] Cornell Harper MD [facility] [place] [address] documented as of this encounter Visit Diagnoses Not on filedocumented in this encounter Care Teams Safety Attendant Relationship Specialty Start Date End Date Jamarcus Rodriguez MD [address] [place] [address] PCP - General 06/07/10 03/24/18 documented as of this encounter
--- OUTSIDE RECORDS SUMMARY | 2024-01-25 00:30 | XMS_ITS | Encounter Summary ---
Author Organization [facility] Address [address] [place] [address] Care Team Providers Care Boiler Erector Name Role Phone Unavailable Primary Care Provider Unavailabl e Encounter Details Date Type Department Care Team (Late st Contact Info) Description 05/19/2002 Results Only [facility] [address] [place] [address] Cyndi Lorenz MD Social History Tobacco Use [...] Priority Date/Time Associated Diagnosis Comments CYTOPATHOLOGY Routine 05/19/2002 0:00 EST documented in this encounter Results * CYTOPATHOLOGY (05/19/2002 0:00 EST) Pathology Report: CYTOPATHOLOGY REPORT Reports generated via electronic interface contain original data; however they are lacking the format of the original report. Caution should be taken when reading/interpreti ng unformatted reports. Name: ? ALYSSA DUBOIS ? Accession #: ? [id number] : ? 1945 (Age: 56) ??F ?Collect Date: ? 05/19/2002 Location: ? [facility] ? Receive Date: ? 05/22/2002 Provider: ?CYNDI LORENZ MD Copy to: ? [facility] ? [facility] ?[address] ?[place] [address] ? Specimen/Source: ?ThinPrep Pap Test, Cervix/Endocervix Last Menstrual Period: ? 05/08/02 ? SPECIMEN ADEQUACY ? Satisfactory for Evaluation - transformation zone component absent GENERAL CATEGORIZATION ? Negative for Intraepithelial Lesion or Malignancy ? Document reviewed and electronically signed by: ? Chanel Naik, ??SCT(ASCP) ? Report Date: ??05/27/2002 12:41 End of Report SHASHANK MARINA 05/19/2002 05/22/2002 Cyndi Lorenz MD PATHOLOGY ORDER PATRICIA [facility] [address] [place] [address] documented in this encounter Visit Diagnoses Not on filedocumented in this encounter
--- OUTSIDE RECORDS SUMMARY | 2024-01-25 00:30 | XMS_ITS | Encounter Summary ---
Author Organization [facility] [place] [address] Care Team Providers Care Plastic Surgery Manager Name Role Phone Carina Davis Primary Care Provider [phone] Encounter Details Date Type Department Care Team (Late st Contact Info) Description 12/02/2008 [place] [phone] Moustapha Morales MD [facility] [place] [address] Social History Tobacco Use Types Packs/Day Years [...] 10:15 AM EDT Office [place] [phone] Cornell Harper MD [facility] [place] [address] documented as of this encounter Procedures Procedure Name Priority Date/Time Associated Diagnosis Comments SURGICAL PATHOLOGY REPORT Routine 12/02/2008 10:43 AM EDT documented in this encounter Results * Surgical Pathology Report (12/02/2008 10:43 AM EDT) Surgical Pathology Report [id number] ? Location: [facility]; [facility]; A The signing pathologist has (i) examined the relevant preparation(s) for the specimen(s) and (ii) rendered or confirmed the diagnosis(es). . ?Pathology Surgical Pathology Final Report Clinical Information Specimen Submitted: A - Femoral head right Clinical History: Not provided Clinical Diagnosis: Right hip OA Gross Description Labeled/Fixativ e: ? Right femoral head, fresh. Quantity/Size: ?One femoral head, 5.5 x 5.5 x 4.5 cm. Tissue Description: ?? Intact femoral head with up to 2.5 cm of attached ?neck. ?? Margin: ?Smooth, red trabecular bone. ?? Articular surface: [place], finely granular and pitted. ? Eburnation: ?Present ? Osteophytes: ? Present ?? Cut surface: ? Yellow trabecular bone. ? Subchondral Sclerosis: ??Present ? Subchondral Cysts: ?Absent Sections/Proces sing: ??No sections submitted. ? elif/SNS Diagnosis Articular bone and soft tissue consistent with osteoarthritis, right femoral head. ?? Gross surgical pathology examination. CR-0 12/03/08 ELIF 12/03/08 Verified by: ? Karime YIP, Jacky ?Pathologist ?(Electronic Signature) The attending pathologist whose signature appears on this report has reviewed all diagnostic slides and has edited the gross and/or microscopic portion of the report in rendering the final pathologic diagnosis. NOLA AGUILA 12/02/2008 10:4 3 AM EDT Moustapha Morales MD PATHOLOGY/CYTOLOGY O [facility] documented in this encounter Visit Diagnoses Not on filedocumented in this encounter Care Teams Plastic Surgery Manager Relationship Specialty Start Date End Date Carina Davis PA [address] [place] [address] PCP - General Family Medicine 03/02/22 documented as of this encounter
--- OUTSIDE RECORDS SUMMARY | 2024-01-25 00:30 | XMS_ITS | Referral Summary ---
Author Organization [facility] Address [address] [place] [address] Care Team Providers Care Facialist Name Role Phone Unknown, Provider Primary Care Provider [phone] Social History Tobacco Use Types Packs/Day Years Used Date Smoking Tobacco: Never Assessed Sex and Gender Information Value Date Recorded Sex Assigned at Not on file Gender Identity Not on file Sexual Orientation Not on file Plan of Treatment Not on file Care Teams Facialist Relationship Specialty Start Date End Date Unknown, Provider, PCP - General 05/20/15
--- OUTSIDE RECORDS SUMMARY | 2024-01-25 00:30 | XMS_ITS | Encounter Summary ---
Author Organization [facility] Address [address] [place] [address] Care Team Providers Care Branch Manager Trainee Name Role Phone Unavailable Primary Care Provider Unavailabl e Encounter Details Date Type Department Care Team (Late st Contact Info) Description 11/03/2004 Results Only [facility] - [place] conversion [address] [place] [address] Cyndi Lorenz MD Social History Tobacco Use [...] Priority Date/Time Associated Diagnosis Comments CYTOPATHOLOGY Routine 11/03/2004 0:00 EDT documented in this encounter Results * CYTOPATHOLOGY (11/03/2004 0:00 EDT) Pathology Report: CYTOPATHOLOGY REPORT Reports generated via electronic interface contain original data; however they are lacking the format of the original report. Caution should be taken when reading/interpreti ng unformatted reports. Name: ? ALYSSA DUBOIS ? Accession #: ? [id number] : ? 1945 (Age: 59) ??F ?Collect Date: ? 11/03/2004 Location: ? [facility] ? Receive Date: ? 11/07/2004 Provider: ?CYNDI LORENZ MD Copy to: ? [facility] ?[facility] ?[address] ?[place], [place] [address] ? Specimen/Source: ?ThinPrep Pap Test, Cervix/Endocervix Last Menstrual Period: ? Menstrual/Pregnanc y Status: ? Menopausal ? SPECIMEN ADEQUACY ? Satisfactory for Evaluation - transformation zone component present GENERAL CATEGORIZATION ? Negative for Intraepithelial Lesion or Malignancy INTERPRETATION ? Shift in chloé present suggestive of bacterial vaginosis. ? Document reviewed and electronically signed by: ? MARIANNE Frausto(ASCP) ? Report Date: ??11/10/2004 15:29 End of Report SHASHANK MARINA 11/03/2004 11/07/2004 Cyndi Lorenz MD PATHOLOGY ORDER PATRICIA [facility] [address] [place] [address] documented in this encounter Visit Diagnoses Not on filedocumented in this encounter
--- OUTSIDE RECORDS SUMMARY | 2024-01-25 00:30 | XMS_ITS | Encounter Summary ---
Author Organization [facility] Address [address] [place] [address] Care Team Providers Care Lye Bath Operator Name Role Phone Unavailable Primary Care Provider Unavailabl e Encounter Details Date Type Department Care Team (Latest Contact Info) Description 10/26/2008 16:54 EDT Hospital Encounter [facility] - Other [address] [place] [address] Lilia Valderrama, LEAD PHP DEVELOPER [address] [place] [address] Discharge Disposition: Home or Self Care Social History Tobacco Use Types Packs/Day Years Used Date Smoking Tobacco: Never Assessed Sex and Gender Information Value Date Recorded Sex Assigned at Not on file Gender Identity Not on file Sexual Orientation Not on file documented as of this encounter Discharge Disposition Disposition Code Departure Means Destination Home or Self Care documented in this encounter Plan of Treatment Not on file documented as of this encounter Visit Diagnoses Not on filedocumented in this encounter
--- OUTSIDE RECORDS SUMMARY | 2024-01-25 00:30 | XMS_ITS | Encounter Summary ---
Author Organization [facility] [place] [address] Care Team Providers Care Behavioral Consultant Name Role Phone Jamarcus Rodriguez MD Primary Care Provider [phone] Encounter Details Date Type Department Care Team (Late st Contact Info) Description 03/20/2012 Orders Only [place] [phone] Nancy Acosta APRN [facility] ORTHOPAEDIC [place] [address] Left hip pain (Primary Dx) Social History Tobacco Use Types [...] AM EDT Office Visit [place] [phone] Cornell Harper [place] [address] documented as of this encounter Visit Diagnoses Diagnosis Left hip pain- Primary Pain in joint, pelvic region and thigh documented in this encounter Care Teams Behavioral Consultant Relationship Specialty Start Date End Date Jamarcus Rodriguez MD [address] [place] [address] PCP - General 06/07/10 03/24/18 documented as of this encounter
--- OUTSIDE RECORDS SUMMARY | 2024-01-25 00:30 | XMS_ITS | Encounter Summary ---
Author Organization [facility] Address [address] [place] [address] Care Team Providers Care Induction Furnace Operator Name Role Phone Unavailable Primary Care Provider Unavailabl e Encounter Details Date Type Department Care Team (Late st Contact Info) Description 01/02/2012 Results Only [facility] ([facility] [address] [place], [place] [address] Charisma Hawkins, [address] [phone] Social History Tobacco Use Types Packs/Day Years Used Date Smoking Tobacco: Never Assessed Sex and Gender Information Value Date Recorded Sex Assigned at Not on file Gender Identity Not on file Sexual Orientation Not on file documented as of this encounter Plan of Treatment Not on file documented as of this encounter Procedures Procedure Name Priority Date/Time Associated Diagnosis Comments PAP TEST- RESULT ONLY Routine 01/02/2012 12:00 EDT documented in this encounter Results * PAP TEST- RESULT ONLY (01/02/2012 12:00 EDT) Pathology Report: CYTOPATHOLOGY REPORT Reports generated via electronic interface contain original data; however they are lacking the format of the original report. Caution should be taken when reading/interpreti ng unformatted reports. Name: ? ALYSSA BOYLE ? Accession #: ? [id number] ? : ? 1945 (Age: 66) ??F ?Collect Date: ? 01/02/2012 ? Location: ? [facility] ? Receive Date: ? 01/03/2012 ? Provider: CHARISMA HAWKINS CNM Copy to: ? Final Report SPECIMEN ADEQUACY ? Satisfactory for Evaluation - transformation zone component present GENERAL CATEGORIZATION ? Negative for Intraepithelial Lesion or Malignancy ?? Last Menstural Period: 1998 Other: Additional clinical information: previous pap WNL 09/21 Specimen/Source: ??Pap Test, Cervix/Endocervix, ThinPrep Imaging System with manual evaluation Document reviewed and electronically signed by: ? Ashly Reynoso, CT(ASCP) ? Report ??Date: 01/04/2012 14:01 HPV with Pap Test ? Date Ordered: ? 01/04/2012 ? Status: ?? Signed Out ?Date Complete: ? 01/08/2012 ? By: ??System Interface ? Date Reported: ? 01/08/2012 ? Interpretation RESULT: Negative for HPV. No E6 or E7 mRNA is detected from HPV types 16,18,31,33,35, 39,45,51,52,56,58, 59,66, and 68 by preschool education director mediated amplification. Comments Document reviewed and electronically signed by: ? System Interface ? Report date: 01/08/2012 By the signature above, the attending physician certifies that he/she has personally conducted a gross and/or microscopic examination of the described specimens and rendered or confirmed the above diagnosis. End of Report [facility] 01/02/2012 12:0 0 EDT 01/03/2012 Charisma Hawkins CNM PATHOLOGY ORDERA BLES Performing Organization Address City/State/[facility] Co de Phone Number [facility] [address] [place] [address] documented in this encounter Visit Diagnoses Not on filedocumented in this encounter
--- OUTSIDE RECORDS SUMMARY | 2024-01-25 00:30 | XMS_ITS | Clinical Summary ---
Author Organization [facility] Address [address] [place] [address] Care Team Providers Care Lock Operator Name Role Phone Unknown, Provider Primary Care Provider [phone] Social History Tobacco Use Types Packs/Day Years Used Date Smoking Tobacco: Never Assessed Sex and Gender Information Value Date Recorded Sex Assigned at Not on file Gender Identity Not on file Sexual Orientation Not on file Plan of Treatment Health Maintenance Due Date Last Done Comments Hepatitis C Screen 1945 RSV Immunization ( o r 60+ Years) (1 - 1-dose 60+ series) 2007 Fall Risk Screening 2012 COVID-19 Vaccine (24 season) 2023 Care Teams Lock Operator Relationship Specialty Start Date End Date Unknown, Provider, PCP - General 05/20/15
--- OUTSIDE RECORDS SUMMARY | 2024-01-25 00:30 | XMS_ITS | Encounter Summary ---
Author Organization [facility] Address [facility] [place] [address] Care Team Providers Care Stranding Supervisor Name Role Phone Jamarcus Rodriguez MD Primary Care Provider [phone] Reason for Visit * Reason Comments Aftercare Of Tjr s/p right AMBER 11/21 Left Hip Pain Encounter Details Date Type Department Care Team (Late st Contact Info) Description 03/21/2012 2:55 PM EDT Office [place] [id number] Nancy Acosta APRN [facility] [place] [address] Knee joint pain (Primary Dx); Status post hip replacement Discharge Disposition: Home Social History [...] Sign Reading Time Taken Comments Blood Pressure 118/67 03/21/2012 3:22 PM EDT Pulse 72 03/21/2012 3:22 PM EDT Temperature - - Respiratory Rate - - Oxygen Saturation - - Inhaled Oxygen Concentration - - Weight 65.5 kg (144 lb 8 oz) 03/21/2012 3:22 PM EDT Height 157.5 cm (5' 2) 03/21/2012 3:22 PM EDT Body Mass Index 26.43 03/21/2012 3:22 PM EDT documented in this encounter Progress Notes * Stephen-Ki, Nancy Higginbotham, TAX EXAMINER - 03/21/2012 4:05 PM EDT DATE OF SERVICE: 03/21/2012 DATE OF INJURY: 03/16/2012 PERTINENT SURGICAL HISTORY: On 12/02/2008, right total hip arthroplasty by Dr. Morales. SUBJECTIVE: Alyssa was descending spiral staircase at her house this past Sunday when she slipped. Her right foot was on the more narrow part of the riser and that leg abducted sharply. She tried to stop herself from falling down the steps, so her left leg actually went between the risers behind her, she hyperflexed her knees striking the risers below her. Both knees are pretty banged up and bruised as are the bilateral hips. She was able to walk, but she has been very sore. She reports here with a new hip x-ray just to make sure that everything is okay. The patient has had two previous falls, her leg gave way, one time on [place] and another time at home. This leg giving way has been scaring her and so she wanted to just stop and make sure everything is okay. She is using no assistive devices to get around. She is just taking ibuprofen 400 mg t.i.d. for discomfort, nothing more than that. She is able to sleep at night because she is on two antianxiety medications and they knock her out. She has no numbness or tingling in her legs. No bowel or bladder changes. She did not lose consciousness with her fall. OBSERVED: Alyssa reports back to clinic with a slightly antalgic gait, favoring her right leg more so. She is 5 feet 2 inches, 144 pounds, giving her a BMI of 26.5; blood pressure today is 118/67; heart rate 62; and respirations 16. She has 5-cm circumference, ecchymotic, greenish, purplish areas of bruising in the bilateral lesser trochanter areas and proximal thigh areas laterally. She also has bruising, distal and lateral, to her right knee and that is about 3 cm in circumference, and about a 4-cm circumference area of a bright green ecchymosis on the anterior left knee with a 1-cm circumference eschar which seems to be healing without any sign of infection. When seated, I can fairly rotate each femur, this produces no discomfort, whatsoever, nor does axial loading of either femur. She is able to fully extend both knees, but she has a fairly noisy palpable crepitance with flexion and extension on the left knee. She believes that this is old. I do not feel any palpable cord defects on the left knee from her hyperflexion injury, but seems that with an anterior drawer, she is a little lax on the left knee versus the right. Her calves are soft. No peripheral edema. X-RAYS: Films of the pelvis today demonstrate an intact right hip prosthesis, but nothing to suggest malposition, loosening, or hardware displacement. No fracture seen. The contralateral left hip appears to show [id number]-nj-irwotewu joint space narrowing. I do not have knee films today. Post Op Right Hip Exam: Wilkins Hip Score: Less than 30 degrees of fixed flexion: Yes Less than 10 degrees of fixed adduction: Yes less than 10 degrees of fixed int rotation in extension: Yes Limb Length discrepancy: 0cm Motion: Total degrees of Flexion:120 Total degrees of Abduction:35 Total degrees of Ext Rotation: 35 Total degrees of Adduction: 0 Gait Abnormality: Normal Pulses Palpable: Right PT: Yes Right DP:Yes Motor/Sensory: Right Distal Motor: Normal Distal Sensory: Normal Hip Abductors: 4 CLARIFICATION NEEDED: ADDENDUM X-RAYS: Alyssa was sent for an additional left knee film today due to her hyperflexion injury. No fractures are seen. They were over-read by Dr. Morales today. I had a question if at the 11 o'clock position, she might have some fraying of the bone in that area, just with a little suspicious and irregular; however, he felt that she appears to be fine as she really does not have any appreciable soft tissue swelling anterior to the patella. She does have mild arthritic changes in the knee, I let her know about this. We will await for the radiologist reading if they see anything that we do not. We will certainly let the patient know and potentially place her in a knee brace. ASSESSMENT: 1. Right hip prosthesis, stable. 2. Bony contusions, bilateral hips and knees. 3. Cannot rule out discrete fracture of left patella, the one likely. PLAN: Just to be sure because of the noisiness of the crepitance in the left knee and a fairly exquisite left patella to palpation, although the area is also bruised, so it is difficult to tell, I am going to send her for additional knee films today. When she is back later, I will add an additional note on about this. documented in this encounter H&P Notes * Provider, Jj - 02/02/2014 12:02 PM EDT documented in this encounter Plan of Treatment Upcoming Encounters Date Type Department Care Team (Late st Contact Info) Description 02/26/2024 10:15 AM EDT Office Visit Endocrinology at [facility] [place] [address] Cornell Harper MD [facility] [place] [address] documented as of this encounter Results * XR knee diagnostic [...] this encounter Visit Diagnoses Diagnosis Knee joint pain- Primary Pain in joint, lower leg Status post hip replacement Hip joint replacement by other means Knee joint pain Pain in joint, lower leg documented in this encounter Care Teams Stranding Supervisor Relationship Specialty Start Date End Date Jamarcus Rodriguez MD [address] [place] [address] PCP - General 06/07/10 03/24/18 documented as of this encounter
--- OUTSIDE RECORDS SUMMARY | 2024-01-25 00:30 | XMS_ITS | Encounter Summary ---
Author Organization [facility] Address [address] [place] [address] Care Team Providers Care Tile Installer Name Role Phone Unavailable Primary Care Provider Unavailabl e Encounter Details Date Type Department Care Team (Late st Contact Info) Description 10/09/2008 Before PRISM Converted Visit ([facility]) [facility] - [facility] conversion [address] [place] [address] Charisma Hawkins, [address] [id number] Social History Tobacco Use Types Packs/Day Years Used Date Smoking Tobacco: Never Assessed Sex and Gender Information Value Date Recorded Sex Assigned at Not on file Gender Identity Not on file Sexual Orientation Not on file documented as of this encounter Plan of Treatment Not on file documented as of this encounter Procedures Procedure Name Priority Date/Time Associated Diagnosis Comments SURGICAL PATHOLOGY Routine 10/26/2008 0: 00 EDT HPV DETECTION, HIGH RISK TYPES Routine 10/09/2008 14:52 EDT CYTOPATHOLOGY Routine 10/09/2008 0:00 EDT documented in this encounter Results * SURGICAL PATHOLOGY (10/26/2008 0:00 EDT) Pathology Report: SURGICAL PATHOLOGY REPORT ? Reports generated via electronic interface contain original data; ? however they are lacking the format of the original report. ? Caution should be taken when reading/interpreti ng unformatted reports. ? Name: ? GIBERSONTETREAIMANI, ALYSSA ? Accession #: ? [id number] ? : ? 1945 (Age: 63) ??F ? Collect Date: ? 10/26/2008 ? Location: ? [facility] ? Receive Date: ? 10/27/2008 ? Provider: SUE B HARKIN RUBBLE PLACER ? Copy to: NIRAV W WOOD MD ? Final Pathologic Diagnosis: ? A. ?Skin of forehead, right, shave biopsy: ? 1. ?? Mild epidermal hyperplasia with hyperkeratosis and underlying abundant nodular solar ? elastosis. ??See microscopic and comment. ? B. ?Skin of chest wall, right, punch biopsy: ? 1. ?? Melanocytic nevus, junctional type, with unusual architectural ? features and moderate cytologic ? atypia. ? - Melanocytic nevus does not extend to edges of biopsy specimen in the ? plane of sections ? examined. ?- Melanocytic nevus measures approximately 0.4 mm to the nearest ? peripheral edge. ? C. ?Skin of thigh, right upper, shave biopsy: ? 1. ?Mild epidermal hyperplasia with hyperkeratosis. ? Comment: ? In specimens (A) and (C), despite deeper levels, there is no evidence of ?? basal cell carcinoma. ??The findings are most consistent with solar ? lentigo/seborrheic keratosis with nodular solar elastosis more prominent in ? specimen (A) from the right forehead. ??(Dr. Mccarthy)/lgk ? Microscopic Description: ? (A) and (C): ??Sections consist of a shave biopsy of skin. ??There is ? orthohyperkeratosi s overlying an epidermis showing a mild hyperplasia with ? elongated thin and anastomosing rete ridges. ??Some of the rete are club-shaped. The keratinocytes have a variable amount of melanin pigment. ??The melanocytes ?? are generally normal in number and distribution. ??There is prominent solar ? elastosis within the dermis, which in specimen (A) has more of a nodular ? architecture. ??Deeper levels have been examined on blocks (A) and (C). ? (B) The epidermis is hyperplastic with elongate and anastomosing rete ridges. ?? There is a proliferation of melanocytes within the epidermis that consists of ?? nests and individual cells. ??The nests predominate but vary to a moderate degree in size, shape, and spacing. ??The nests are located between and on the sides of the rete ridges, in addition to at the tips of the ridges. ??Nests bridge rete ?? ridges. ??Focally, individual melanocytes are prominent and show uneven spacing ?? but no confluent growth or well-developed upward migration. ??The melanocytes are enlarged and have ill-defined cytoplasm containing melanin pigment. ??The nuclei show a moderate degree of size and shape variation with occasional large, ? irregular forms. ??There is papillary dermal fibroplasia. ??(Dr. Mccarthy)/lgk ? Document reviewed and electronically signed by: ? Apryl Mccarthy MD ? Report ??Date: 10/29/2008 17:26 ? By the signature above, the attending physician certifies that he/she has ? personally conducted a gross and/or microscopic examination of the described ? specimens and rendered or confirmed the above diagnosis. ? Specimen(s) Received: ? A. ?R forehead ? B. ? R chest wall ? C. ? R upper thigh ? Clinical History: ? A. BCC; B. Atyp nevus; C. Superficial BCC; A. - C. Clinical diagnosis code: 238.2 ? Gross Description: ? Received in formalin labelled Alyssa Peace and R forehead ?? is a shave biopsy of figueroa-white, scaly skin measuring 0.7 x 0.6 x 0.1 cm. ??The ?? specimen is trisected and is entirely submitted as (A). ? Received in formalin labelled Alyssa Peace and R chest wall is a punch biopsy of figueroa skin measuring 0.6 cm in diameter and 0.5 cm in thickness. ?? There is a central, dark brown, ill-defined macule measuring 0.4 x 0.2 cm. ??The specimen is trisected and is entirely submitted as (B). ? Received in formalin labelled Alyssa Peace and Jerilyn upper thigh is a shave biopsy of figueroa-white skin measuring 0.8 x 0.6 x 0.1 cm. ??The specimen is quadrisected and is entirely submitted as (C). ??(Olinda Juarez)/[facility] ? End of Report ? [facility] 10/26/2008 10/27/2008 14: 30 EDT Sue Valderrama NP PATHOLOGY ORDERABLES Performing Organization Address City/State/[facility] Co de Phone Number [facility] [address] [place] [address] * HUMAN PAPILLOMA VIRUS DNA TEST (10/09/2008 14:52 EDT) Specimen Description Cervix, ThinPrep vial [facility] Result Negative for HPV types 16, 18, 31, 33, 35, 39, 45, 51, 52, 56, 58, 59, and 68. [facility] Report Status Final 10/20/2008 [facility] 10/09/2008 14:5 2 EDT 10/13/2008 14:52 EDT Charisma Hawkins CNM MICROBIOLOGY - G ENERAL ORDERABLES [facility] [address] [address] * CYTOPATHOLOGY (10/09/2008 0:00 EDT) Pathology Report: CYTOPATHOLOGY REPORT ? Reports generated via electronic interface contain original data; ? however they are lacking the format of the original report. ? Caution should be taken when reading/interpreti ng unformatted reports. ? Name: ? ALYSSA PEACE ? Accession #: ? [id number] ? : ? 1945 (Age: 63) ??F ?Collect Date: ? 10/09/2008 ? Location: ? [facility] ? Receive Date: ? 10/12/2008 ? Provider: ?CHARISMA HAWKINS CNM ? Copy to: ? Specimen/Source: ?Pap Test, Cervix/Endocervix, ThinPrep Imaging System ? with manual evaluation ? Last Menstrual Period: ? Other: ? HPVDX - HPV testing requested regardless of diagnosis on current ThinPrep Pap ?? test. ? SPECIMEN ADEQUACY ? Satisfactory for Evaluation ? - transformation zone component absent ? GENERAL CATEGORIZATION ? Negative for Intraepithelial Lesion or Malignancy ? Document reviewed and electronically signed by: ? Ashly [place], [place](ASCP) ? Report Date: ??10/13/2008 09:50 ? End of Report ? [facility] 10/09/2008 10/12/2008 Charisma Hawkins CNM PATHOLOGY [facility] [address] [place] [address] documented in this encounter Visit Diagnoses Not on filedocumented in this encounter
--- OUTSIDE RECORDS SUMMARY | 2024-01-25 00:30 | XMS_ITS | Encounter Summary ---
Author Organization [facility] Address [address] [place] [address] Care Team Providers Care Psychology Technician Name Role Phone Unavailable Primary Care Provider Unavailabl e Encounter Details Date Type Department Care Team (Late st Contact Info) Description 05/21/2003 Results Only [facility] [place] conversion [address] [place] [address] Cyndi Lorenz MD Social History Tobacco Use [...] Priority Date/Time Associated Diagnosis Comments CYTOPATHOLOGY Routine 05/21/2003 0:00 EST documented in this encounter Results * CYTOPATHOLOGY (05/21/2003 0:00 EST) Pathology Report: CYTOPATHOLOGY REPORT Reports generated via electronic interface contain original data; however they are lacking the format of the original report. Caution should be taken when reading/interpreti ng unformatted reports. Name: ? ALYSSA DUBOIS ? Accession #: ? [id number] : ? 1945 (Age: 57) ??F ?Collect Date: ? 05/21/2003 Location: ? [facility] ? Receive Date: ? 05/25/2003 Provider: ?CYNDI LORENZ MD Copy to: ? [facility] ?[address] ?[place] [address] ? Specimen/Source: ?ThinPrep Pap Test, Source Not Provided Last Menstrual Period: ? SPECIMEN ADEQUACY ? Satisfactory for Evaluation - transformation zone component present GENERAL CATEGORIZATION ? Negative for Intraepithelial Lesion or Malignancy INTERPRETATION ? Shift in chloé present suggestive of bacterial vaginosis. ? Document reviewed and electronically signed by: ? BUCK Pizano(ASCP) ? Report Date: ??06/02/2003 07:26 End of Report [facility] 05/21/2003 05/25/2003 Cyndi Lorenz MD PATHOLOGY ORDER PATRICIA [facility] [address] [place] [address] documented in this encounter Visit Diagnoses Not on filedocumented in this encounter
--- OUTSIDE RECORDS SUMMARY | 2024-01-29 01:16 | XMS_ITS | Encounter Summary ---
[place] [address] Care Team Providers Care Office Machine Repair Shop Supervisor Name Role Phone Samnicholas Baylee Nicholas JORDAN Primary Care Provider [phone] Reason for Visit * Reason Onset Date Comments Other 04/03/2018 Encounter Details Date Type Department Care Team (Late st Contact Info) Description 04/03/2018 [place] [phone] Chelsi Bermudez RMA Other Social History Tobacco [...] song philip poditrist or her PCP. Patient/Responsible democrat voices an understanding of advice? yes documented in this encounter Plan of Treatment Upcoming Encounters Date Type Department Care Team (Late st Contact Info) Description 02/26/2024 10:15 AM EDT Office Visit Endocrinology at [facility] [place] [address] Cornell Harper MD [facility] [place] [address] documented as of this encounter Visit Diagnoses Not on filedocumented in this encounter Care Teams Office Machine Repair Shop Supervisor Relationship Specialty Start Date End Date Baylee Elena, NIKKI PCP - General Family Medicine 03/25/18 03/01/22 documented as of this encounter
--- OUTSIDE RECORDS SUMMARY | 2024-01-29 01:16 | XMS_ITS | Encounter Summary ---
Author Organization [facility] Address [facility] [place] [address] Care Team Providers Care Pest Control Technician Name Role Phone Ulices Baylee Mayorga APRN Primary Care Provider [phone] Encounter Details Date Type Department Care Team (Latest Contact Info) Description 02/26/2019 8:27 AM EDT - 02/26/2019 11:14 AM EDT Hospital Encounter XRay at [address] [place] [address] Noemi Hudson MD [facility] [place] [address] History of total hip arthroplasty, right; 02/04/2014 [...] Sig Dispensed Refills Start Date End Date EPINEPHrine 0.3 mg/0.3 mL Auto-Injector Inject 0.3 [...] Tablet Take 40 mg by mouth daily. clobetasol (TEMOVATE) 0.05 % cream Apply 1 [...] fluticasone (FLOVENT HFA) 220 mcg/Actuation inhaler 09/02/2010 documented as of this encounter Plan of Treatment Upcoming Encounters Date Type Department Care Team (Late st Contact Info) Description 02/26/2024 10:15 AM EDT Office Visit Endocrinology at [facility] [place] [address] Cornell Harper MD [facility] [place] [address] Scheduled Orders Name Type Priority Associated Diagnoses [...] means documented in this encounter Care Teams Pest Control Technician Relationship Specialty Start Date End Date Baylee Elena APRN PCP - General Family Medicine 03/25/18 03/01/22 documented as of this encounter
--- OUTSIDE RECORDS SUMMARY | 2024-01-29 01:16 | XMS_ITS | Encounter Summary ---
Author Organization [facility] [place] [address] Care Team Providers Care Head Paper Tester Name Role Phone Baylee Elena APRN Primary Care Provider [phone] Reason for Referral * Physical Therapy (Routine) - Specialty Diagnoses / Procedures Referred By Calin vasquez Referred To Contact Physical Therapy Diagnoses Primary osteoarthritis of both knees Noemi Hudson MD [facility] [place] [address] Referral ID Status Reason Start Date Expiration Date V isits Requested Visits Authorized [id number] Evaluate and Treat 02/26/2019 08/25/2019 12 12 Reason for Visit * Reason Comments Follow Up Surgery right AMBER revision; left hip pain Encounter Details Date Type Department Care Team (Latest Contact Info) Description 02/26/2019 10:00 AM EDT Office [place] [address] [facility] [place] [address] History of bilateral hip replacements; Primary osteoarthritis [...] Endocrinology at [facility] [place] [address] Cornell Harper MD [facility] [place] [address] Scheduled Referrals Name Type Priority Associated Diagnoses Orde r Schedule Referral to Physical Therapy Outpatient Referral Routine Primary osteoarthritis of both knees Ordered: 02/26/2019 documented as of this encounter Results * XR Knee Standing Alignment AP Lat [place] Lorimor Bilat (02/26/2019 11:43 AM EDT) Anatomical Region [...] mg documented in this encounter Care Teams Head Paper Tester Relationship Specialty Start Date End Date Baylee Elena APRN PCP - General Family Medicine 03/25/18 03/01/22 documented as of this encounter
--- OUTSIDE RECORDS SUMMARY | 2024-01-29 01:16 | XMS_ITS | Encounter Summary ---
[place] [address] Care Team Providers Care Welder Repair Name Role Phone Carina Davis Primary Care Provider Reason for Referral * Consultation (Routine) - Closed Specialty Diagnoses / Procedures Referred By Contfermín t Referred To Contact Endocrinology Diagnoses Thyroid nodule Carina Davis PA [address] [place] [address] [facility] Endocrinology [address] [place] [phone] Referral ID Status Reason Start Date Expiration Date V isits Requested Visits Authorized [id number] Closed Consult, Test & Treat PCP Updated and/or Approved 03/02/2022 03/02/2023 6 6 Encounter Details Date Type Department Care Team (Late st Contact Info) Description 03/02/2022 Transcribe Orders eDH Incoming Referrals [phone] Carina Davis PA [address] [place] [address] Thyroid nodule Social History Tobacco [...] 10:15 AM EDT Office Visit Endocrinology at [facility] [place] [address] Cornell Harper MD [facility] [place] [address] Scheduled Referrals Name Type Priority Associated Diagnoses Order Schedule Referral to Endocrinology Outpatient Referral Routine Thyroid nodule Ordered: 03/02/2022 documented as of this encounter Visit Diagnoses Diagnosis Thyroid nodule Nontoxic uninodular goiter documented in this encounter Care Teams Welder Repair Relationship Specialty Start Date End Date Carina Davis PA [address] [place] [address] PCP - General Family Medicine 03/02/22 documented as of this encounter
--- OUTSIDE RECORDS SUMMARY | 2024-01-29 01:16 | XMS_ITS | Encounter Summary ---
Author Organization [facility] [place] [address] Care Team Providers Care Contract Agent Name Role Phone Carina Davis Primary Care Provider [phone] Reason for Visit * Reason Onset Date Comments Medication Refill 01/01/2023 Encounter Details Date Type Department Care Team (Late st Contact Info) Description 01/01/2023 [place] [phone] Leanne Larsen RN Social History Tobacco Use [...] 10:15 AM EDT Office [place] [address] Cornell Harper MD [facility] [place] [address] documented as of this encounter Visit Diagnoses Not on filedocumented in this encounter Care Teams Contract Agent Relationship Specialty Start Date End Date Carina Davis PA [address] [place] [address] PCP - General Family Medicine 03/02/22 documented as of this encounter
--- OUTSIDE RECORDS SUMMARY | 2024-01-29 01:16 | XMS_ITS | Encounter Summary ---
Author Organization [facility] Address [facility] [place] [address] Care Team Providers Care Bible Teacher Name Role Phone Carina Davis Primary Care Provider [phone] Encounter Details Date Type Department Care Team [...] at [facility] [place] [address] Cornell Harper MD [facility] [place] [address] documented as of this encounter Visit Diagnoses Not on filedocumented in this encounter Care Teams Bible Teacher Relationship Specialty Start Date End Date Carina Davis PA [address] [place] [address] PCP - General Family Medicine 03/02/22 documented as of this encounter
--- OUTSIDE RECORDS SUMMARY | 2024-01-29 01:16 | XMS_ITS | Encounter Summary ---
Author Organization [facility] Adolfo [facility] [place] [address] Care Team Providers Care Network Contractor Name Role Phone Carina Davis Primary Care Provider [phone] Reason for Visit * Reason Comments Medication Refill Encounter Details Date Type Department Care Team (Late st Contact Info) Description 01/12/2023 [place] [address] Cesar Pineda, [facility] [place] [address] Social History Tobacco Use Types Packs/Day Years [...] 10:15 AM EDT Office [place] [address] Cornell Harper MD [facility] [place] [address] documented as of this encounter Visit Diagnoses Not on filedocumented in this encounter Care Teams Network Contractor Relationship Specialty Start Date End Date Carina Davis PA [address] [address] PCP - General Family Medicine 03/02/22 documented as of this encounter
--- OUTSIDE RECORDS SUMMARY | 2024-01-29 01:16 | XMS_ITS | Encounter Summary ---
Author Organization [facility] Address [facility] [place] [address] Care Team Providers Care Pest Controller Name Role Phone Ulices Baylee Mayorga APRN Primary Care Provider [phone] Reason for Visit * Reason Comments Follow Up Surgery right AMBER REV Encounter Details Date Type Department Care Team (Late st Contact Info) Description 07/18/2018 1:00 PM EST Office [place] [address] Noemi Hudson MD [facility] [place] [address] Pain of right lower extremity Social History [...] Progress Notes * Noemi Hudson MD - 07/18/2018 1:00 PM EST Images [...] Endocrinology at [facility] [place] [address] Cornell Harper MD [facility] [place] [address] documented as of this encounter Visit Diagnoses Diagnosis Pain of right lower extremity documented in this encounter Care Teams Pest Controller Relationship Specialty Start Date End Date Baylee Elena APRN PCP - General Family Medicine 03/25/18 03/01/22 documented as of this encounter
--- OUTSIDE RECORDS SUMMARY | 2024-01-29 01:16 | XMS_ITS | Encounter Summary ---
Author Organization [facility] [place] [address] Care Team Providers Care Van Helper Name Role Phone Carina Davis Primary Care Provider [phone] Encounter Details Date Type Department Care Team (Late st Contact Info) Description 12/28/2022 Telephone [place] [phone] Cesar Pineda, [facility] [place] [address] Social History Tobacco Use Types Packs/Day Years [...] 10:15 AM EDT Office [place] [address] Cornell Harper [place] [facility] [place] [address] documented as of this encounter Visit Diagnoses Not on filedocumented in this encounter Care Teams Van Helper Relationship Specialty Start Date End Date Carina Davis PA [address] [place] [address] PCP - General Family Medicine 03/02/22 documented as of this encounter
--- OUTSIDE RECORDS SUMMARY | 2024-01-29 01:16 | XMS_ITS | Encounter Summary ---
[place] [address] Care Team Providers Care Major Account Representative Name Role Phone Carina Davis Primary Care Provider [phone] Encounter Details Date Type Department Care Team (Late st Contact Info) Description 12/28/2022 Telephone [place] [address] Cesar Pineda DO [facility] [place] [address] Social History Tobacco Use Types Packs/Day Years [...] 10:15 AM EDT Office Visit Endocrinology at [facility] [place] [address] Cornell Harper [place] [facility] [place] [address] documented as of this encounter Visit Diagnoses Not on filedocumented in this encounter Care Teams Major Account Representative Relationship Specialty Start Date End Date Carina Davis PA [address] [place] [address] PCP - General Family Medicine 03/02/22 documented as of this encounter
--- OUTSIDE RECORDS SUMMARY | 2024-01-29 01:16 | XMS_ITS | Encounter Summary ---
[place] [address] Care Team Providers Care Connection Worker Name Role Phone Ulices Baylee Mayorga APRN Primary Care Provider [phone] Reason for Visit * Reason Comments Follow Up Surgery revision R AMBER Encounter Details Date Type Department Care Team (Late st Contact Info) Description 04/30/2018 4:00 PM EDT Office Visit [place] [phone] Noemi Hudson MD [facility] [place] [address] Prosthetic hip implant failure, subsequent encounter Social [...] is noted in terms of pain and adventist of function. QUESTIONNAIRE RESPONSES: General Health, Prior [...] AM EDT Office Visit Endocrinology at [facility] [place] [address] Cornell Harper MD [facility] [place] [address] documented as of this encounter Visit Diagnoses Diagnosis Prosthetic hip implant failure, subsequent encounter documented in this encounter Care Teams Connection Worker Relationship Specialty Start Date End Date Baylee Elena APRN PCP - General Family Medicine 03/25/18 03/01/22 documented as of this encounter
--- OUTSIDE RECORDS SUMMARY | 2024-01-29 01:16 | XMS_ITS | Encounter Summary ---
Author Organization [facility] [place] [address] Care Team Providers Care Hand Cloth Folder Name Role Phone Carina Davis Primary Care Provider [phone] Encounter Details Date Type Department Care Team (Late st Contact Info) Description 01/10/2023 9:30 AM EDT Office Visit Endocrinology at [facility] [address] Vin Craig MD [facility] [address] [place] [address] Cesar Pineda DO [facility] [place] [address] Thyroid nodule; Vitamin D deficiency Social History [...] Office Visit from 01/10/2023 in Endocrinology at [facility] Office Visit from 07/18/2018 in Orthopaedics at [facility] Weight 80.8 kg (178 lb 3.2 oz) [...] Studies: ENDOCRINOLOGY THYROID ULTRASOUND REPORT Patient:Alyssa Burnham, [id number] Date of exam: 01/11/2023 Indication: thyroid nodule Comparison: Clinic US 11/20/22 Performed by: Cesar Pineda DO, Vin Craig MD Real time images of the thyroid gland were obtained using a Recorded Future US machine. All measurements are given as [...] and coordination of care Vin Craig MD Tag Stringerfelled seam operator Endocrinology Section [facility] documented in this encounter Miscellaneous Notes * Addendum Note - Vin Craig MD - 01/10/2023 9:30 AM EDTAddended by: VIN CRAIG on: 01/11/2023 01:22 PM Modules accepted: Level of Service documented in this encounter Plan of Treatment Upcoming Encounters Date Type Department Care Team (Late st Contact Info) Description 02/26/2024 10:15 AM EDT Office Visit Endocrinology at [facility] [place] [address] Craig MD [facility] [place] [address] documented as of this encounter Procedures Procedure Name Priority Date/Time Associated Diagnosis Comments CYTOPATHOLOGY NON-GYNECOLOGICAL Routine 01/10/2023 9:27 AM EDT Thyroid nodule documented in this encounter Results * Vitamin D, 25-Hydroxy (01/10/2023 10:54 AM EDT) 25-OH Vit D Total 34 21 - 100 ng/mL [facility] 25-OH Vit D Interp Sufficient [facility] Blood 01/10/2023 10:5 4 AM EDT 01/10/2023 11:12 AM EDT Narrative Resulting Agency Comment Spec In Lab Vin Craig MD CHEMISTRY ORDERABLE S [facility] [place] [address] * TSH Curry (01/10/2023 10:54 AM EDT) TSH 1.83 0.27 - 4.20 mcIU/mL [facility] Comment: Reference Interval (mcIU/mL): Females: ??First Trimester: 0.23-3.88 ??Second Trimester: 0.22-3.90 ??Third Trimester: 0.44-4.66 Blood 01/10/2023 10:5 4 AM EDT 01/10/2023 11:12 AM EDT Narrative Resulting Agency Comment Spec In Lab Vin Craig MD CHEMISTRY ORDERABLE S Performing Organization Address City/[facility]/ZIP Co de Phone Number [facility] [place] [address] * Cytopathology Non-Gynecological (01/10/2023 9:27 AM EDT) AP Specimen 01/10/2023 9:27 AM EDT 01/10/2023 9:27 AM EDT Narrative [facility] - 01/10/2023 9:27 AM EDT Specimen requisition ordered. ??Separate Pathology report to follow Vin Craig MD PATHOLOGY/CYTOLOGY ORDERABLES Performing Organization Address City/[facility] [place] [address] documented in this encounter Visit Diagnoses Diagnosis Thyroid nodule Nontoxic uninodular goiter Vitamin D deficiency Unspecified vitamin D deficiency documented in this encounter Care Teams Hand Cloth Folder Relationship Specialty Start Date End Date Carina Davis PA [address] [place] [address] PCP - General Family Medicine 03/02/22 documented as of this encounter
--- OUTSIDE RECORDS SUMMARY | 2024-01-29 01:16 | XMS_ITS | Encounter Summary ---
Author Organization [facility] Address [facility] [place] [address] Care Team Providers Care Back Feeder Plywood Layup Line Name Role Phone Ulices Baylee Mayorga APRN Primary Care Provider [phone] Encounter Details Date Type Department Care Team (Latest Contact Info) Description 02/26/2019 11:15 AM EDT - 02/26/2019 11:59 PM EDT Hospital Encounter XRay at [address] [place] [address] Noemi Hudson MD [facility] [place] [address] Primary osteoarthritis of both knees Discharge Disposition: [...] AM EDT Office Visit Endocrinology at [facility] [place] [address] Cornell Harper MD [facility] [address] documented as of this encounter Procedures Procedure Name Priority Date/Time Associated Diagnosis Comments XR KNEE STANDING ALIGNMENT AP LAT [place] SKYLINE BILAT Routine 02/26/2019 11:43 AM EDT Primary osteoarthritis of both knees documented in this encounter Results * XR Knee Standing Alignment AP Lat [place] Cheney Bilat (02/26/2019 11:43 AM EDT) Anatomical Region [...] leg documented in this encounter Care Teams Back Feeder Plywood Layup Line Relationship Specialty Start Date End Date Baylee Elena, DYNAMOMETER REPAIRER PCP - General Family Medicine 03/25/18 03/01/22 documented as of this encounter
--- OUTSIDE RECORDS SUMMARY | 2024-01-29 01:16 | XMS_ITS | Encounter Summary ---
Author Organization [facility] Address [facility] [place] [address] Care Team Providers Care Boxing Trainer Name Role Phone Baylee Elena APRN Primary Care Provider [phone] Reason for Referral * Physical Therapy (Routine) - Specialty Diagnoses / Procedures Referred By Calin vasquez Referred To Contact Physical Therapy Diagnoses S/P revision of total hip Noemi Hudson MD [facility] [address] Referral ID Status Reason Start Date Expiration Date V isits Requested Visits Authorized [id number] Evaluate and Treat 05/01/2018 10/28/2018 20 20 Encounter Details Date Type Department Care Team (Late st Contact Info) Description 05/01/2018 Orders Only [place] [address] Noemi Hudson MD [facility] [place] [address] 04/01/2018 S/P revision of right total hip [...] AM EDT Office Visit Endocrinology at [facility] [place] [address] Cornell Harper MD [facility] [place] [address] Scheduled Referrals Name Type Priority Associated Diagnoses Orde r Schedule Referral to Physical Therapy Outpatient Referral Routine 04/01/2018 S/P revision of right total hip (Dr. Hudson) Ordered: 05/01/2018 documented as of this encounter Visit Diagnoses Diagnosis 04/01/2018 S/P revision of right total hip (Dr. Hudson) Hip joint replacement by other means documented in this encounter Care Teams Boxing Trainer Relationship Specialty Start Date End Date Baylee Elena APRN PCP - General Family Medicine 03/25/18 03/01/22 documented as of this encounter
--- OUTSIDE RECORDS SUMMARY | 2024-01-29 01:16 | XMS_ITS | Encounter Summary ---
Author Organization [facility] Address [facility] Ad[facility] [place] [address] Care Team Providers Care Linting Machine Operator Name Role Phone Baylee Elena Mukesh JORDAN Primary Care Provider [phone] Encounter Details Date Type Department Care Team (Late st Contact Info) Description 02/26/2019 Orders [place] [address] Noemi Hudson MD [facility] [place] [address] 02/04/2014 Dr. Holland Left Anterior AMBER; 04/01/2018 [...] 10:15 AM EDT Office [place] [address] Cornell Harper MD [facility] [place] [address] documented as of this encounter Results * [...] report, please contact the number below. ? Electronically signed by: BLESSING [place] [facility] ([phone]), at 02/26/2019 1:30 PM Narrative 02/26/2019 1:30 PM EDT EXAMINATION: XR [...] means documented in this encounter Care Teams Linting Machine Operator Relationship Specialty Start Date End Date Baylee Elena APRN PCP - General Family Medicine 03/25/18 03/01/22 documented as of this encounter
--- OUTSIDE RECORDS SUMMARY | 2024-01-29 01:16 | XMS_ITS | Encounter Summary ---
Author Organization [facility] [place] [address] Care Team Providers Care Shot Polisher And Inspector Name Role Phone Carina Davis Primary Care Provider [phone] Encounter Details Date Type Department Care Team (Late st Contact Info) Description 01/16/2024 1:45 PM EDT Ancillary Procedure [place] [address] Carina Davis PA [address] [place] [address] Social History Tobacco Use Types Packs/Day Years [...] 10:15 AM EDT Office [place] [address] Cornell Harper MD [facility] [place] [address] documented as of this encounter Procedures Procedure Name Priority Date/Time Associated Diagnosis Comments FILM LIBRARY STORAGE ONLY ULTRASOUND STUDY Routine 01/16/2024 1:44 PM EDT documented in this encounter Results * Film Library- Storage Only Ultrasound Study (01/16/2024 1:44 PM EDT) Narrative [facility] - 01/16/2024 1:44 PM EDT This exam is auto-finalizing. It's purpose is for storage only. Carina AMES William FILM LIBRARY ORD ERABLES [place], [place] documented in this encounter Visit Diagnoses Not on filedocumented in this encounter Care Teams Shot Polisher And Inspector Relationship Specialty Start Date End Date Carina Davis PA [address] [place] [address] PCP - General Family Medicine 03/02/22 documented as of this encounter
--- OUTSIDE RECORDS SUMMARY | 2024-01-29 01:16 | XMS_ITS | Encounter Summary ---
Author Organization [facility] Address [facility] [place] [address] Care Team Providers Care Program Manager Transportation Name Role Phone Ulices Baylee Mayorga APRN Primary Care Provider [phone] Reason for Visit * Reason Comments Follow Up Surgery R AMBER Rev 04/01/18 Encounter Details Date Type Department Care Team (Late st Contact Info) Description 07/03/2018 11:30 AM EST Office [place] [address] Noemi Hudson MD [facility] ORTHOPAEDIC [place] [address] History of bilateral hip replacements Social History [...] progressis noted in terms of pain and faith of function. QUESTIONNAIRE RESPONSES: General Health, Prior [...] Endocrinology at [facility] [place] [address] Cornell Harper MD [facility] [place] [address] documented as of this encounter Visit Diagnoses Diagnosis History of bilateral hip replacements Hip joint replacement by other means documented in this encounter Care Teams Program Manager Transportation Relationship Specialty Start Date End Date Baylee Elena APRN PCP - General Family Medicine 03/25/18 03/01/22 documented as of this encounter
--- OUTSIDE RECORDS SUMMARY | 2024-01-29 01:16 | XMS_ITS | Encounter Summary ---
[place] [address] Care Team Providers Care Cable Television Program Director Name Role Phone Carina Davis Primary Care Provider Encounter Details Date Type Department Care Team (Late st Contact Info) Description 11/28/2022 [place] [address] Leanne Larsen RN Social History Tobacco Use [...] 10:15 AM EDT [place] [address] Cornell Harper [place] [address] documented as of this encounter Visit Diagnoses Not on filedocumented in this encounter Care Teams Cable Television Program Director Relationship Specialty Start Date End Date Carina Davis PA [address] [place] [address] PCP - General Family Medicine 03/02/22 documented as of this encounter
--- OUTSIDE RECORDS SUMMARY | 2024-01-29 01:16 | XMS_ITS | Encounter Summary ---
Author Organization [facility] [place] [address] Care Team Providers Care Quality Rn Name Role Phone Carina Davis Primary Care Provider [phone] Encounter Details Date Type Department Care Team (Late st Contact Info) Description 11/22/2022 11:25 AM EDT Office [place] [address] Cesar Pineda, [facility] [address] Thyroid nodule; Hypothyroidism, unspecified type; Vitamin D [...] Office Visit from 07/18/2018 in Orthopaedics at [facility] Office Visit from 07/03/2018 in Orthopaedics at [facility] Weight 75.8 kg (167 lb) [as of [...] Dr. Harper. Cesar Pineda DO Endocrinology Fellow [facility] * Cornell Harper MD - 11/22/2022 11:25 [...] Visit Endocrinology at [facility] [place] [address] Cornell Harper MD [facility] [place] [address] documented as of this encounter Procedures Procedure Name Priority Date/Time Associated Diagnosis Comments NON-DRY CLEANING MACHINE OPERATOR HELPER FINAL REPORT Routine 11/22/2022 11:12 AM EDT CYTOPATHOLOGY NON-GYNECOLOGICAL Routine 11/22/2022 11:12 AM EDT Thyroid nodule documented in this encounter Results * Non-Fibreglass Gun Hand Final Report (11/22/2022 11:12 AM EDT) Non-Fibreglass Gun Hand Final Report [id number] ? Location: The signing pathologist has (i) examined the relevant preparation(s) for the specimen(s) and (ii) rendered or confirmed the diagnosis(es). . ? Non-Fibreglass Gun Hand Final DIAGNOSIS Nondiagnostic Electronically signed by: ?Kwaku YIP, Patricia Verified: ??11/23/2022 15:21 ??Pathologist Performed at: ??-[facility] Dept. of Pathology, [place] [address] Resident Associate: Irene Jimenez MD, AP, ??CLIA Certificate: [id number] DISCUSSION Thyroid, right (FNA): Nondiagnostic/Uns atisfactory (see [...] sample was received for potential molecular testing. [facility] 11/22/2022 11:1 2 AM EDT Cesar Pineda DO PATHOLOGY/CYTOLOGY ORDERABLES Performing Organization Address City/[facility]/[place] [address] * Cytopathology Non-Gynecological (11/22/2022 11:12 AM EDT) AP Specimen 11/22/2022 11:1 2 AM EDT 11/22/2022 11:12 AM EDT Narrative [facility] - 11/22/2022 11:12 AM EDT Specimen requisition ordered. ??Separate Pathology report to follow Cornell Harper MD PATHOLOGY/CYTOLOGY ORDERABLES Performing Organization Address [facility] [place] [address] documented in this encounter Visit Diagnoses Diagnosis Thyroid nodule Nontoxic uninodular goiter Hypothyroidism, unspecified type Vitamin D deficiency Unspecified vitamin D deficiency documented in this encounter Care Teams Quality Rn Relationship Specialty Start Date End Date Carina Davis PA [address] [place] [address] PCP - General Family Medicine 03/02/22 documented as of this encounter
--- OUTSIDE RECORDS SUMMARY | 2024-01-29 01:16 | XMS_ITS | Encounter Summary ---
[place] [address] Care Team Providers Care Programmer Business Name Role Phone Carina Davis Primary Care Provider [phone] Encounter Details Date Type Department Care Team (Late st Contact Info) Description 11/27/2022 Telephone [place] [address] Leanne Larsen RN Social History Tobacco Use [...] Endocrinology at [facility] [place] [address] Cornell Harper MD [facility] [place] [address] documented as of this encounter Visit Diagnoses Not on filedocumented in this encounter Care Teams Programmer Business Relationship Specialty Start Date End Date Carina Davis PA [address] [place] [address] PCP - General Family Medicine 03/02/22 documented as of this encounter
--- OUTSIDE RECORDS SUMMARY | 2024-01-29 01:16 | XMS_ITS | Encounter Summary ---
Author Organization [facility] [place] [address] Care Team Providers Care Drop Count Associate Name Role Phone Baylee Elena APRN Primary Care Provider [phone] Encounter Details Date Type Department Care Team (Late st Contact Info) Description 02/21/2022 Ancillary Procedure [place] [address] Baylee Elena APRN [address], [place] [id number] Social History Tobacco Use Types Packs/Day Years [...] 10:15 AM EDT Office Visit Endocrinology at [place] [address] Cornell Harper MD [facility] [place] [address] documented as of this encounter Procedures [...] Elena APRN IMWilliam FILM LIBRARY ORD ERABLES [place], [place] documented in this encounter Visit Diagnoses Not on filedocumented in this encounter Care Teams Drop Count Associate Relationship Specialty Start Date End Date Baylee Elena APRN PCP - General Family Medicine 03/25/18 03/01/22 documented as of this encounter
--- OUTSIDE RECORDS SUMMARY | 2024-01-29 01:16 | XMS_ITS | Encounter Summary ---
Author Organization [facility] [place] [address] Care Team Providers Care Supervisor Counseling And Guidance Name Role Phone Carina Davis Primary Care Provider [phone] Encounter Details Date Type Department Care Team (Late st Contact Info) Description 11/20/2022 10:30 AM EDT Office [place] [address] Cesar Pineda, [facility] [place] [address] High serum thyroid stimulating hormone (TSH); Hypothyroidism, [...] Office Visit from 07/18/2018 in Orthopaedics at [facility] Office Visit from 07/03/2018 in Orthopaedics at [facility] Weight 75.8 kg (167 lb) [as of [...] Studies: ENDOCRINOLOGY THYROID ULTRASOUND REPORT Patient:Alyssa Burnham, [id number] Date of exam: 11/21/2022 Indication: thyroid nodule Comparison: clinic US 05/2022 Performed by: Cesar Pinead DO Real time images of the thyroid [...] nodule. Replete vitamin D. Sheila Montiel MD Armor Reconnaissance Vehicle Crewmanvideo game repair technician Endocrinology Section [facility] documented in this encounter Plan of Treatment Upcoming Encounters Date Type Department Care Team (Late st Contact Info) Description 02/26/2024 10:15 AM EDT Office Visit Endocrinology at [facility] [place] [address] Cornell Harper MD [facility] [place]ARC[place] Mccorm[place] [address] documented as of this encounter Procedures Procedure [...] Vitamin D, 25-Hydroxy (11/20/2022 11:40 AM EDT) [facility] [address] 25-OH Vit D Total 14(L) 21 - 100 ng/mL [facility] 25-OH Vit D Interp Deficient [facility] Blood Venous Draw / Unknown 11/20/2022 11:40 AM EDT 11/20/2022 11:53 AM EDT Narrative Resulting Agency Comment Spec In Lab Cesar Pineda DO CHEMISTRY ORDERABLE S Performing Organization Address [facility]/ZIP Co de Phone Number [facility] [place] [address] * (ABNORMAL) T4, free (11/20/2022 11:40 AM EDT) [facility] [address] Free T4 0.78(L) 0.93 - 1.70 ng/dL [facility] Comment: Reference Interval (ng/dL): Females: ??First Trimester: 0.97-1.68 ??Second Trimester: 0.77-1.51 ??Third Trimester: 0.77-1.49 Blood 11/20/2022 11:4 0 AM EDT 11/20/2022 11:53 AM EDT Narrative Resulting Agency Comment Spec In Lab Cesar Pineda DO CHEMISTRY ORDERABLE S Performing Organization Address City/[facility]/ZIP Co de Phone Number [facility] [place] [address] * (ABNORMAL) TSH [place] (11/20/2022 11:40 AM EDT) TSH 4.57(H) 0.27 - 4.20 mcIU/mL [facility] Comment: Reference Interval (mcIU/mL): Females: ??First Trimester: 0.23-3.88 ??Second Trimester: 0.22-3.90 ??Third Trimester: 0.44-4.66 Blood 11/20/2022 11:4 0 AM EDT 11/20/2022 11:52 AM EDT Narrative Resulting Agency Comment Spec In Lab Milagros Jaramillo MD CHEMISTRY ORDERAB LES [facility] [place] [address] * Thyroid Stimulating Immunoglobulins (11/20/2022 11:40 AM EDT) TSI <0.10 <=0.55 IU/L [facility] Blood 11/20/2022 11:4 0 AM EDT 11/20/2022 12:32 PM EDT Narrative Resulting Agency Comment Spec In Lab Sheila Mnotiel MD IMMUNOLOGY ORDERABLE S Performing Organization Address City/[facility]/ZIP Co de Phone Number [facility] [place] [address] * Thyroid peroxidase antibody (11/20/2022 11:40 AM EDT) Thyroperox Ab <10 <=34 IU/mL [facility] Blood 11/20/2022 11:4 0 AM EDT 11/20/2022 12:32 PM EDT Narrative Resulting Agency Comment Spec In Lab Sheila Montiel MD IMMUNOLOGY ORDERABLE S [facility] [place] [address] * T3 Total (11/20/2022 11:40 AM EDT) T3, Total 89 80 - 200 ng/dL [facility] Blood 11/20/2022 11:4 0 AM EDT 11/20/2022 11:52 AM EDT Narrative Resulting Agency Comment Spec In Lab Sheila Montiel MD CHEMISTRY ORDERABLES [facility] [place] [address] documented in this encounter Visit Diagnoses Diagnosis High serum thyroid stimulating hormone (TSH) Hypothyroidism, unspecified type Thyroid nodule Nontoxic uninodular goiter Vitamin D deficiency Unspecified vitamin D deficiency documented in this encounter Care Teams Supervisor Counseling And Guidance Relationship Specialty Start Date End Date Carina Davis PA [address] [address] PCP - General Family Medicine 03/02/22 documented as of this encounter
--- OUTSIDE RECORDS SUMMARY | 2024-01-29 01:16 | XMS_ITS | Encounter Summary ---
Author Organization [facility] [place] [address] Care Team Providers Care Fnp Name Role Phone Baylee Elena APRN Primary Care Provider [phone] Reason for Visit * Reason Onset Date Comments Physical Therapy 05/01/2018 Encounter Details Date Type Department Care Team (Late st Contact Info) Description 05/01/2018 Telephone [place] [phone] Noemi Hudson MD [facility] [place] [address] Physical Therapy Social History Tobacco Use Types [...] - 05/01/2018 3:30 PM EDT Mariana from [facility] in [place], [place] called requesting a PT referral and op note from Dr. Hudson's AMBER revision on Alyssa. This was faxed over via Epic this afternoon. documented in this encounter Plan of Treatment Upcoming Encounters Date Type Department Care Team (Late st Contact Info) Description 02/26/2024 10:15 AM EDT Office Visit Endocrinology at [facility] [place] [address] Cornell Harper MD [facility] [place] [address] documented as of this encounter Visit Diagnoses Not on filedocumented in this encounter Care Teams Fnp Relationship Specialty Start Date End Date Baylee Elena APRN PCP - General Family Medicine 03/25/18 03/01/22 documented as of this encounter
--- OUTSIDE RECORDS SUMMARY | 2024-01-29 01:16 | XMS_ITS | Encounter Summary ---
Author Organization [facility] Address [facility] [place] [address] Care Team Providers Care Seat Builder Name Role Phone Carina Davis Primary Care Provider [phone] Encounter Details Date Type Department Care Team [...] at [facility] [place] [address] Cornell Harper MD [facility] [place] [address] documented as of this encounter Visit Diagnoses Not on filedocumented in this encounter Care Teams Seat Builder Relationship Specialty Start Date End Date Carina Davis PA [address] [place] [address] PCP - General Family Medicine 03/02/22 documented as of this encounter
--- OUTSIDE RECORDS SUMMARY | 2024-01-29 01:16 | XMS_ITS | Encounter Summary ---
Author Organization [facility] Address [facility] [place] [address] Care Team Providers Care Dumpcart Driver Name Role Phone Carina Davis Primary Care Provider [phone] Encounter Details Date Type Department Care Team [...] 10:15 AM EDT Office Visit Endocrinology at [facility] [place] [address] Cornell Harper MD [facility] [place] [address] documented as of this encounter Visit Diagnoses Not on filedocumented in this encounter Care Teams Dumpcart Driver Relationship Specialty Start Date End Date Carina Davis PA [address] [place] [address] PCP - General Family Medicine 03/02/22 documented as of this encounter
--- OUTSIDE RECORDS SUMMARY | 2024-01-29 01:16 | XMS_ITS | Clinical Summary ---
Author Organization [facility] Address [facility] [place] [address] Care Team Providers Care Pantry Attendant Name Role Phone Carina Davis Primary Care Provider [phone] Allergies Active Allergy Reactions Criticality Noted Date [...] PM EDT Ancillary [place] [address] Carina Davis PA from Last 3 Months [...] Endocrinology at [facility] [place] [address] Cornell Harper MD [facility] [place] [address] Health Maintenance Due Date Last Done Comments Hepatitis C Screening 1965 Tdap adult 1966 Tetanus vaccine 1966 Zoster vaccine (1 of 2) 1997 Bone Density Scan 2012 Pneumoccocal Vaccine: 65+ (2 of 2 - PCV) 2012 08/16/2008 Covid-19 Vaccine ( - 2022- season) 2023 Influenza (Flu) vaccine (1 o f 1 - Influenza standard series) 03/16/2024 04/15/2008 Medical Devices Implanted Type Area Oracle Developer Device Identifier Shelf Expiration Date Model / Serial / Lot Cup,Hip,Acetb, Grptn,100,50mm ([id number]) (Autoreq) - [id number] Implanted:Qty: 1 on 02/04/2014 by Lance Holland MD at [facility] IMPLANTS Left: Hip 10/14/2023 0 / / [id number] Inser,Altrx,Nt ,84m59ps ([id number]) (Autoreq) - [id number] Implanted:Qty: 1 on 02/04/2014 by Lance Holland MD at [facility] IMPLANTS Left: Hip 10/13/2018 0 / / [id number] Stem,Crl2,Std, Sz11 ([id number]) (Autoreq) - [id number] Implanted:Qty: 1 on 02/04/2014 by Lance Holland MD at [facility] IMPLANTS Left: Hip 06/14/2018 [id number] / / [id number] Ball,Atc,Brn,+ 5mm,32mm ([id number]) (Autoreq) - [id number] Implanted:Qty: 1 on 02/04/2014 by Lance Holland MD at [facility] IMPLANTS Left: Hip 10/13/2018 0 / / [id number] Inser,Altrx,10 d,+4,83m45ib ([id number]) (Autoreq) - [id number] Implanted:Qty: 1 on 04/01/2018 by Noemi Hudson MD at [facility] IMPLANTS Right: Hip [employer] - ANDREW HEMANTH 03/16/2019 0 / / [id number] Head,Fem,S-Rom ,Aluma,32+0 ([id number]) - [id number] Implanted:Qty: 1 on 04/01/2018 by Noemi Hudson MD at [facility] IMPLANTS Right: Hip [facility] - ANDREW HEMANTH 03/16/2019 [id number] / / [id number] Procedures Procedure Name Priority Date/Time Associated Diagnosis [...] FILM LIBRARY ORD ERABLES DH REBECCA [place] * Scan Doc: Diagnostic Radiology (01/16/2024 12:00 AM EDT) Only the most recent of2 resultswithin the time period is included. Anatomical Region Laterality Modality Other Narrative 01/16/2024 12:00 AM EDT Ordered by an unspecified provider. Scanning Provider MEDIA MGR SCAN EXT O RDR/RSLT from Last 3 Months Advance Directives Documents on File Type Date Recorded Patient Instructional Interventionist Expl anation Advance Directives and Livin g Will 09/14/2010 10:08 AM * Full Code (Latest Code Status on File) Date Activated Date Inactivated Comments 04/01/2018 4:21 PM 04/02/2018 7:42 PM Question Answer Comments Does patient have capacity to make decision: Yes * Full Code Date Activated Date Inactivated Comments 02/04/2014 2:49 PM 02/06/2014 4:27 PM Care Teams Pantry Attendant Relationship Specialty Start Date End Date Carina Davis PA [address] [place] [address] PCP - General Family Medicine 03/02/22
--- OUTSIDE RECORDS SUMMARY | 2024-01-29 01:16 | XMS_ITS | Encounter Summary ---
Author Organization [facility] Address [facility] [place] [address] Care Team Providers Care Waxing Machine Operator Helper Name Role Phone Carina Davis Primary Care Provider [phone] Encounter Details Date Type Department Care Team [...] 10:15 AM EDT Office Visit Endocrinology at [facility] [place] [address] Cornell Harper MD [facility] [place] [address] documented as of this encounter Visit Diagnoses Not on filedocumented in this encounter Care Teams Waxing Machine Operator Helper Relationship Specialty Start Date End Date Carina Davis PA [address] [place] [address] PCP - General Family Medicine 03/02/22 documented as of this encounter
--- OUTSIDE RECORDS SUMMARY | 2024-01-29 01:16 | XMS_ITS | Encounter Summary ---
Author Organization [facility] Address [facility] [place] [address] Care Team Providers Care Liquor Grinding Mill Operator Name Role Phone Carina Davis Primary Care Provider [phone] Encounter Details Date Type Department Care Team [...] Endocrinology at [facility] [place] [address] Cornell Harper MD [facility] [place] [address] documented as of this encounter Visit Diagnoses Not on filedocumented in this encounter Care Teams Liquor Grinding Mill Operator Relationship Specialty Start Date End Date Carina Davis PA [address] [place] [address] PCP - General Family Medicine 03/02/22 documented as of this encounter
--- OUTSIDE RECORDS SUMMARY | 2024-01-29 01:16 | XMS_ITS | Encounter Summary ---
Author Organization [facility] [place] [address] Care Team Providers Care Gaming Department Head Name Role Phone Carina Davis Primary Care Provider [phone] Reason for Visit * Consultation (Routine) - Closed Specialty Diagnoses / Procedures Referred By Calin vasquez Referred To Contact Endocrinology Diagnoses Thyroid nodule Carina Davis PA [address] [place] [address] [facility] Endocrinology [address] [place] [address] Referral ID Status Reason Start Date Expiration Date V isits Requested Visits Authorized [id number] Closed Consult, Test & Treat PCP Updated and/or Approved 03/02/2022 03/02/2023 6 6 Encounter Details Date Type Department Care Team (Late st Contact Info) Description 05/26/2022 10:00 AM EST Office [place] [address] Cesar Pineda, [facility] [place] [address] Thyroid nodule Social History Tobacco [...] her TSH in March 2022 measured at [facility] was 2.18. Past Medical History: Diagnosis [...] REVISION ARTHROPLASTY, COMPLETE (WRVU 30.28) [facility] ??? PRO TOTAL HIP ARTHROPLASTY 02/04/2014 @TOTAL HIP ARTHROPLASTY, ANTERIOR APPROACH performed by Lance Holland MD at [facility] Social History Socioeconomic History [...] Visit from 07/18/2018 in [place] [facility] [place] Visit from 07/03/2018 in [place]opaedics [place] [facility] Weight 75.8 kg (167 lb) [as of [...] Data: TSH in March 2022 measured at [facility] was 2.18. Assessment / Plan: 76yo woman presents for evaluation of an incidentally discovered thyroid nodule. This was recently measured up to 1.7cm at [facility] but is 1.5cm today. It is [...] included. ENDOCRINOLOGY THYROID ULTRASOUND REPORT Patient:Alyssa Burnham, [id number] Date of exam: 05/26/2022 Indication: Thyroid nodule Comparison: US 02/21/22 (report only) Performed by: Milagros Crump DO, MD Real time images of the thyroid gland were obtained using a Weimi US machine. All measurements are given as [...] AM EDT Office Visit Endocrinology at [facility] [place] [address] Cornell aHrper MD [facility] [place] [address] documented as of this encounter Results * (ABNORMAL) TSH [place] (11/20/2022 11:40 AM EDT) TSH 4.57(H) 0.27 - 4.20 mcIU/mL [facility] Comment: Reference Interval (mcIU/mL): Females: ??First Trimester: 0.23-3.88 ??Second Trimester: 0.22-3.90 ??Third Trimester: 0.44-4.66 Blood 11/20/2022 11:4 0 AM EDT 11/20/2022 11:52 AM EDT Narrative Resulting Agency Comment Spec In Lab Milagros Jaramillo MD CHEMISTRY ORDERAB LES Performing Organization Address City/State/[facility] Co de Phone Number [facility] [place] [address] documented in this encounter Visit Diagnoses Diagnosis Thyroid nodule Nontoxic uninodular goiter documented in this encounter Care Teams Gaming Department Head Relationship Specialty Start Date End Date Carina Davis PA [address] [place] [address] PCP - General Family Medicine 03/02/22 documented as of this encounter
--- OUTSIDE RECORDS SUMMARY | 2024-01-29 01:16 | XMS_ITS | Encounter Summary ---
Author Organization [facility] [place] [address] Care Team Providers Care Promotions Assistant Sales Marketing Name Role Phone SamBaylee peterson Mukesh JORDAN Primary Care Provider [phone] Encounter Details Date Type Department Care Team (Late st Contact Info) Description 07/05/2018 4:05 PM EST Ancillary Procedure [place] [address] Noemi Hudson MD [facility] [place] [address] Social History Tobacco Use Types Packs/Day Years [...] 10:15 AM EDT Office [place] [address] Cornell Harper MD [facility] [place] [address] documented as of this encounter Procedures Procedure [...] FILM LIBRARY OR DERABLES Performing Organization Address City/State/[facility] Co de Phone Number [place], [place] documented in this encounter Visit Diagnoses Not on filedocumented in this encounter Care Teams Promotions Assistant Sales Marketing Relationship Specialty Start Date End Date Baylee Elena, EMERGENCY MEDICAL SERVICE COORDINATOR PCP - General Family Medicine 03/25/18 03/01/22 documented as of this encounter
--- OUTSIDE RECORDS SUMMARY | 2024-01-29 01:16 | XMS_ITS | Encounter Summary ---
Author Organization [facility] Address [facility] [place] [address] Care Team Providers Care Fiber Optic Assembly Worker Name Role Phone Ulices Baylee Mayorga APRN Primary Care Provider Encounter Details Date Type Department Care Team (Latest Contact Info) Description 04/30/2018 2:31 PM EDT - 04/30/2018 11:59 PM EDT Hospital Encounter XRay at [address] [place] [address] Noemi Hudson MD [facility] [place] [address] Prosthetic hip implant failure, initial encounter; Pain [...] fluticasone (FLOVENT HFA) 220 mcg/Actuation inhaler 09/02/2010 HYDROmorphone (DILAUDID) 2 mg Tablet Take 1-3 [...] Take 1,000 Units by mouth daily. 07/03/2018 polyethylene glycol (MIRALAX) 17 gram packet Take [...] Endocrinology at [facility] [place] [address] Cornell Harper MD [facility] [place] [address] documented as of this encounter Procedures Procedure [...] 2013 and slightly more apparent than on [id number] study. IMPRESSION 1. Right revision AMBER without [...] extremity documented in this encounter Care Teams Fiber Optic Assembly Worker Relationship Specialty Start Date End Date Baylee Elena, DIVER ASSISTANT PCP - General Family Medicine 03/25/18 03/01/22 documented as of this encounter
--- OUTSIDE RECORDS SUMMARY | 2024-01-29 01:16 | XMS_ITS | Encounter Summary ---
Author Organization [facility] Address [facility] [place] [address] Care Team Providers Care Sports Internship Name Role Phone Carina Davis Primary Care Provider [phone] Encounter Details Date Type Department Care Team [...] 10:15 AM EDT Office Visit Endocrinology at [facility] [place] [address] Cornell Harper MD [facility] [place] [address] documented as of this encounter Visit Diagnoses Not on filedocumented in this encounter Care Teams Sports Internship Relationship Specialty Start Date End Date Carina Davis PA [address] [place] [address] PCP - General Family Medicine 03/02/22 documented as of this encounter
--- OUTSIDE RECORDS SUMMARY | 2024-01-29 01:16 | XMS_ITS | Encounter Summary ---
Author Organization [facility] Address [facility] [place] [address] Care Team Providers Care Art Studio Teacher Name Role Phone Carina Davis Primary Care Provider [phone] Encounter Details Date Type Department Care Team [...] at [facility] [place] [address] Cornell Harper MD [facility] [place] [address] documented as of this encounter Visit Diagnoses Not on filedocumented in this encounter Care Teams Art Studio Teacher Relationship Specialty Start Date End Date Carina Davis PA [address] [place] [address] PCP - General Family Medicine 03/02/22 documented as of this encounter
--- OUTSIDE RECORDS SUMMARY | 2024-01-29 01:16 | XMS_ITS | Encounter Summary ---
Author Organization [facility] [place] [address] Care Team Providers Care Cable Television Installer Name Role Phone Ulices Baylee Mayorga APRN Primary Care Provider [phone] Encounter Details Date Type Department Care Team (Late st Contact Info) Description 03/30/2020 Tele[place] [address] Roberto Carlos Anguiano MD [facility] [place] [place] [address] Social History Tobacco Use Types Packs/Day Years [...] improve she may need to see neuro boilermaker assembly and erection. She said she has blurred vision still [...] if insists on DL, can inquire at [facility] to see him there. * Telephone Encounter - Meche Chavez - 03/30/2020 11:32 AM EDT Patient saw Dr. Anguiano in [place] back in August and had f/u originally [...] 10:15 AM EDT Office Visit Endocrinology at [facility] [place] [address] Cornell Harper MD [facility] [place] [address] documented as of this encounter Visit Diagnoses Not on filedocumented in this encounter Care Teams Cable Television Installer Relationship Specialty Start Date End Date Baylee Elena APRN PCP - General Family Medicine 03/25/18 03/01/22 documented as of this encounter
--- OUTSIDE RECORDS SUMMARY | 2024-01-29 01:16 | XMS_ITS | Encounter Summary ---
[place] [address] Care Team Providers Care Auto Repair Technician Name Role Phone Baylee Elena APRN Primary Care Provider [phone] Reason for Visit * Reason Onset Date Comments Other 07/05/2018 Dislocation 06/16 08/02 Encounter Details Date Type Department Care Team (Late st Contact Info) Description 07/05/2018 [place] [phone] Chelsi Bermudez RMA Other (Dislocation 07/05/18) Social [...] I asked that she call us at [phone] Opt 2 for schding or Opt 3 for Nursing/[place] call center. * Telephone Encounter - Chelsi Bermudez RMA - 07/05/2018 2:31 PM EST Subjective: Dislocation of R Hip DOI 07/05/18 SP Surgeon Role Noemi Hudson MD Primary [place], Sarah Higginbotham MD Resident-Surgeon Jad Procedure Laterality [...] call the ambulance and ws transported to [facility] in [facility]. They did a manipulation and were able to put her hip back in place. She was placed into a knee immobilizer. She is being discharged today and was told she would need follow up with Dr Hudson. Plan: I let her know that she needs to ask them to push all images and ed notes [place] [facility] [place] Hudson will have them for review. I let her know that I will send this message to Dr Hudson and we will call her with a new plan for follow up. Patient/Responsible constitution party voices an understanding of advice? yes documented in this encounter Plan of Treatment Upcoming Encounters Date Type Department Care Team (Late st Contact Info) Description 02/26/2024 10:15 AM EDT Office Visit Endocrinology at [facility] [place] [address] Cornell Harper MD [facility] [place] [address] documented as of this encounter Visit Diagnoses Not on filedocumented in this encounter Care Teams Auto Repair Technician Relationship Specialty Start Date End Date Baylee Elena APRN PCP - General Family Medicine 03/25/18 03/01/22 documented as of this encounter
--- OUTSIDE RECORDS SUMMARY | 2024-01-29 01:16 | XMS_ITS | Encounter Summary ---
Author Organization [facility], Located Within [facility] [place] [address] Care Team Providers Care Sealing And Canceling Machine Operator Name Role Phone Carina Davis Primary Care Provider [phone] Encounter Details Date Type Department Care Team (Latest Contact Info) Description 01/10/2023 10:45 AM EDT Laboratory Appointment Lab [address] [place] [address] Thyroid nodule; Vitamin D deficiency [...] 10:15 AM EDT Office [place] [address] Cornell Harper MD [facility] [place] [address] documented as of this encounter Procedures Procedure Name Priority Date/Time Associated Diagnosis Comments HC THYROID STIMULATING HORMONE, SERUM Routine 01/10/2023 10:54 AM EDT Thyroid nodule Vitamin D deficiency HC VITAMIN D TOTAL-25 HYDROXY Routine 01/10/2023 10:54 AM EDT Thyroid nodule Vitamin D deficiency documented in this encounter Results * TSH [place] (01/10/2023 10:54 AM EDT) TSH 1.83 0.27 - 4.20 mcIU/mL [facility] Comment: Reference Interval (mcIU/mL): Females: ??First Trimester: 0.23-3.88 ??Second Trimester: 0.22-3.90 ??Third Trimester: 0.44-4.66 Blood 01/10/2023 10:5 4 AM EDT 01/10/2023 11:12 AM EDT Narrative Resulting Agency Comment Spec In Lab Cornell Harper MD CHEMISTRY ORDERABLE S [facility] [place] [address] * Vitamin D, 25-Hydroxy (01/10/2023 10:54 AM EDT) 25-OH Vit D Total 34 21 - 100 ng/mL [facility] 25-OH Vit D Interp Sufficient [facility] Blood 01/10/2023 10:5 4 AM EDT 01/10/2023 11:12 AM EDT Narrative Resulting Agency Comment Spec In Lab Cornell Harper MD CHEMISTRY ORDERABLE S [facility] [place] [address] documented in this encounter Visit Diagnoses Diagnosis Thyroid nodule Nontoxic uninodular goiter Vitamin D deficiency Unspecified vitamin D deficiency documented in this encounter Care Teams Sealing And Canceling Machine Operator Relationship Specialty Start Date End Date Carina Davis PA [address] [address] PCP - General Family Medicine 03/02/22 documented as of this encounter
--- OUTSIDE RECORDS SUMMARY | 2024-01-29 01:16 | XMS_ITS | Encounter Summary ---
Author Organization [facility] [place] [address] Care Team Providers Care Ethics Manager Name Role Phone SamBaylee peterson Mukesh JORDAN Primary Care Provider [phone] Encounter Details Date Type Department Care Team (Late st Contact Info) Description 07/05/2018 4:15 PM EST Ancillary Procedure [place] [phone] Noemi Hudson MD [facility] [place] [address] Social History Tobacco Use Types Packs/Day Years [...] 10:15 AM EDT Office [place] [address] Cornell Harper MD [facility] [place] [address] documented as of this encounter Procedures Procedure [...] FILM LIBRARY OR DERABLES Performing Organization Address City/State/[facility] Co de Phone Number [place], [place] documented in this encounter Visit Diagnoses Not on filedocumented in this encounter Care Teams Ethics Manager Relationship Specialty Start Date End Date Baylee Elena, SUPERVISOR METAL HANGING PCP - General Family Medicine 03/25/18 03/01/22 documented as of this encounter
--- OUTSIDE RECORDS SUMMARY | 2024-01-29 01:17 | XMS_ITS | Encounter Summary ---
[place] [address] Care Team Providers Care Anime Designer Name Role Phone Jamarcus Rodriguez MD Primary Care Provider [phone] Reason for Visit * Reason Comments Aftercare Of Tjr Lt Ant AMBER DOS Rt AMBER DOS 2008 Encounter Details Date Type Department Care Team (Late st Contact Info) Description 01/22/2015 11:00 AM EDT Office [place] [phone] Betty Dong APRN [facility] [place] [address] 02/04/2014 Dr. Holland Left Anterior AMBER; Status [...] encounter Progress Notes * Betty Dong [facility], CRYPTOLOGIC TECHNICIAN OPERATOR/ANALYST - 01/22/2015 11:25 AM EDT Arthroplasty/Orthopaedic History: [...] elderly Parents. She is no taking any intermediate pain medicine. Other than minor falls,she has [...] 10:15 AM EDT Office Visit Endocrinology at [facility] [place] [address] Cornell Harper MD [facility] [place] [address] documented as of this encounter Visit Diagnoses Diagnosis 02/04/2014 Dr. 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 Morales 2009 Hip joint replacement by other means documented in this encounter Care Teams Anime Designer Relationship Specialty Start Date End Date Jamarcus Rodriguez MD [address] [place] [address] PCP - General 06/07/10 03/24/18 documented as of this encounter
--- OUTSIDE RECORDS SUMMARY | 2024-01-29 01:17 | XMS_ITS | Encounter Summary ---
[place] [address] Care Team Providers Care Chick Room Supervisor Name Role Phone Jamarcus Rodriguez MD Primary Care Provider Reason for Visit * Reason Onset Date Comments VNA Calls 03/03/2014 Encounter Details Date Type Department Care Team (Late st Contact Info) Description 03/03/2014 Telephone [place] [address] Lance Holland MD [address] [place] [address] VNA Calls Social History Tobacco Use Types [...] of caller: ALONDRA POPE RN PLEASE CALL [phone], ASK FOR IZZY ARANA LAST COUMADIN DOSE [...] [place] [place] [address] Cornell Harper [place] [address] documented as of this encounter Visit Diagnoses Not on filedocumented in this encounter Care Teams Chick Room Supervisor Relationship Specialty Start Date End Date Jamarcus Rodriguez MD [address] [place] [address] PCP - General 06/07/10 03/24/18 documented as of this encounter
--- OUTSIDE RECORDS SUMMARY | 2024-01-29 01:17 | XMS_ITS | Encounter Summary ---
Author Organization Replaced By [facility] Address [facility] [place] [address] Care Team Providers Care Winch Operator Name Role Phone Ulices Baylee Mayorga APRN Primary Care Provider [phone] Encounter Details Date Type Department Care Team (Latest Contact Info) Description 03/28/2018 9:13 AM EDT - 03/28/2018 11:59 PM EDT Hospital Encounter XRay at [address] [place] [address] Noemi Hudson MD [facility] [place] [address] History of hip replacement, total, bilateral; Right [...] Sig Dispensed Refills Start Date End Date acetaminophen (TYLENOL) 500 mg Tablet Take 2 [...] 10:15 AM EDT Office Visit Endocrinology at [facility] [place] [address] Cornell Harper MD [facility] [place] [address] documented as of this encounter Procedures Procedure [...] thigh documented in this encounter Care Teams Winch Operator Relationship Specialty Start Date End Date Baylee Elena APRN PCP - General Family Medicine 03/25/18 03/01/22 documented as of this encounter
--- OUTSIDE RECORDS SUMMARY | 2024-01-29 01:17 | XMS_ITS | Encounter Summary ---
[place] [address] Care Team Providers Care Business Process Analyst Name Role Phone Jamarcus Rodriguez MD Primary Care Provider [phone] Reason for Visit * Reason Onset Date Comments Reminder Appointment 12/22/2014 Encounter Details Date Type Department Care Team (Late st Contact Info) Description 12/22/2014 Telephone [place] [phone] Lance Holland [place] [address] [place] [address] Reminder Appointment Social History Tobacco Use Types [...] Dr. Holland relocated his orthopaedic practice to [facility] in [place], [place]. You are on our list to schedule a re- evaluation your total joint replacement performed by Dr. Holland. If you choose to remain at [facility], we are more than happy to schedule this follow-up with one of our total joint associate providers at this time. If you choose to continue to follow with Dr. Holland, please call his office at [facility] in [place], [place] at [phone] and they would be happy to assist you. documented in this encounter Plan of Treatment Upcoming Encounters Date Type Department Care Team (Late st Contact Info) Description 02/26/2024 10:15 AM EDT Office Visit Endocrinology at [facility] [place] [address] Cornell Harper [place] [address] documented as of this encounter Visit Diagnoses Not on filedocumented in this encounter Care Teams Business Process Analyst Relationship Specialty Start Date End Date Jamarcus Rodriguez MD [address] [place] [address] PCP - General 06/07/10 03/24/18 documented as of this encounter
--- OUTSIDE RECORDS SUMMARY | 2024-01-29 01:17 | XMS_ITS | Encounter Summary ---
Author Organization [facility] [place] [address] Care Team Providers Care Former Hand Name Role Phone Jamarcus Rodriguez MD Primary Care Provider [phone] Encounter Details Date Type Department Care Team (Late st Contact Info) Description 12/25/2014 [place] [address] Betty Dong APRN [facility] [address] Aftercare following joint replacement Social History Tobacco [...] 10:15 AM EDT [place] [address] Cornell Harper MD [facility] [place] [address] documented as of this encounter Visit Diagnoses Diagnosis Aftercare following joint replacement documented in this encounter Care Teams Former Hand Relationship Specialty Start Date End Date Jamarcus Rodriguez MD [address] [place] [address] PCP - General 06/07/10 03/24/18 documented as of this encounter
--- OUTSIDE RECORDS SUMMARY | 2024-01-29 01:17 | XMS_ITS | Encounter Summary ---
[place] [address] Care Team Providers Care General Worker Name Role Phone Jamarcus Rodriguez MD Primary Care Provider [phone] Encounter Details Date Type Department Care Team (Latest Contact Info) Description 02/09/2014 Anti-Coag Telephone [place] [address] Julio Rader RN Status post right hip [...] Therapeutic Range: 2.0-3.0 INR: 1.7 Drawn by: [facility] Patient states that she was instructed to [...] EDT Office Visit Endocrinology at [facility] [place] [address] Cornell Harper MD [facility] [place] [address] documented as of this encounter Procedures Procedure Name Priority Date/Time Associated Diagnosis Comments EXTERNAL LAB RESULTS Routine 02/09/2014 documented in this encounter Results * (ABNORMAL) External Lab Results (02/09/2014) POC INR 1.7(Mortgage Closing Clerk al Lab) 0.9 - 1.1 Comment:[facility] Historical Provider CHEMISTRY ORDERAB LES documented in this encounter Visit Diagnoses Diagnosis Status post right hip replacement Hip joint replacement by other means documented in this encounter Care Teams General Worker Relationship Specialty Start Date End Date Jamarcus Rodriguez MD [address] [place] [address] PCP - General 06/07/10 03/24/18 documented as of this encounter
--- OUTSIDE RECORDS SUMMARY | 2024-01-29 01:17 | XMS_ITS | Encounter Summary ---
[place] [address] Care Team Providers Care Lawn Caretaker Name Role Phone Jamarcus Rodriguez MD Primary Care Provider Encounter Details Date Type Department Care Team (Latest Contact Info) Description 02/19/2014 Anti-Coag Telephone [place] [phone] Betty Langford, RN Status post right hip [...] Therapeutic Range: 2.0-3.0 INR: 1.5 Drawn by: [facility] [place] [facility] Patient presents with no signs of [...] Endocrinology at [facility] [place] [address] Cornell Harper MD [facility] [place] [address] documented as of this encounter Procedures Procedure [...] means documented in this encounter Care Teams Lawn Caretaker Relationship Specialty Start Date End Date Jamarcus Rodriguez MD [address] [place] [address] PCP - General 06/07/10 03/24/18 documented as of this encounter
--- OUTSIDE RECORDS SUMMARY | 2024-01-29 01:17 | XMS_ITS | Encounter Summary ---
[place] [address] Care Team Providers Care Precision Mechanical Instrument Maker Name Role Phone Jamarcus Rodriguez MD Primary Care Provider Encounter Details Date Type Department Care Team (Latest Contact Info) Description 03/02/2014 Anti-Coag Telephone [place] [address] Julio Rader RN Status post right hip [...] Therapeutic Range: 2.0-3.0 INR: 1.9 Drawn by: [place] [facility] Bleeding: Epistaxis Black tarry stools Gingival [...] Visit Endocrinology at [facility] [place] [address] Cornell Harper MD [facility] [place] [address] documented as of this encounter Procedures Procedure Name Priority Date/Time Associated Diagnosis Comments EXTERNAL LAB RESULTS Routine 03/02/2014 documented in this encounter Results * (ABNORMAL) External Lab Results (03/02/2014) POC INR 1.9(Experimental Mechanic Electrical al Lab) 0.9 - 1.1 Comment:[facility] Historical Provider CHEMISTRY ORDERAB LES documented in this encounter Visit Diagnoses Diagnosis Status post right hip replacement Hip joint replacement by other means documented in this encounter Care Teams Precision Mechanical Instrument Maker Relationship Specialty Start Date End Date Jamarcus Rodriguez MD [address] [place] [address] PCP - General 06/07/10 03/24/18 documented as of this encounter
--- OUTSIDE RECORDS SUMMARY | 2024-01-29 01:17 | XMS_ITS | Encounter Summary ---
Author Organization [facility] Address [facility] [place] [address] Care Team Providers Care Gas Main And Line Fitter Name Role Phone Jamarcus Rodriguez MD Primary Care Provider [phone] Encounter Details Date Type Department Care Team (Latest Contact Info) Description 01/22/2015 10:37 AM EDT - 01/22/2015 11:59 PM EDT Hospital Encounter XRay at [address] [place] [address] Aftercare following joint replacement Social History Tobacco [...] Visit Endocrinology at [facility] [place] [address] Cornell Harper MD [place] [address] documented as of this encounter Procedures Procedure [...] replacement documented in this encounter Care Teams Gas Main And Line Fitter Relationship Specialty Start Date End Date Jamarcus Rodriguez MD [address] [place] [address] PCP - General 06/07/10 03/24/18 documented as of this encounter
--- OUTSIDE RECORDS SUMMARY | 2024-01-29 01:17 | XMS_ITS | Encounter Summary ---
Author Organization [facility] [place] [address] Care Team Providers Care Marketing Lead Name Role Phone Baylee Elena APRN Primary Care Provider Reason for Visit * Auth/Cert Specialty Diagnoses / Procedures Referred By Calin vasquez Referred To Contact Diagnoses Prosthetic hip implant failure, initial encounter Right AMBER mechanical failure Procedures PRO REVISE TOTAL HIP REPLACEMENT @TOTAL HIP REVISION ARTHROPLASTY, COMPLETE (WRVU 30.28) Referral ID Status Reason Start Date Expiration Date Visits Re quested Visits Authorized [id number] 1 1 Encounter Details Date Type Department Care Team (Late st Contact Info) Description 04/01/2018 1:05 PM EDT Anesthesia [place] [address] Pedro Hoffman MD [facility] [place] [address] Russell Winston MD [facility] [place] [address] Anesthesia Record Procedure Summary Procedure Name Responsible Anesthesiologist Anesthesia Start Time Anesthesia Stop Time @TOTAL HIP REVISION ARTHROPLASTY, COMPLETE (WRVU 30.28) (Right: Hip) Pedro Hoffman MD 04/01/18 1305 04/01/18 1612 Events Date Time Event Comment 04/01/2018 1228 1305 AN Verify 1305 Start 1305 An Start Data 1325 Spinal 1339 Anesthesia Ready 1512 Break/Relief In IVY RICE I CIVIL ENGINEERING DRAFTSPERSON 1525 Break/Relief Out 1604 an stop data [...] by Yolanda Guerrero RN 04/02/18 1639 by iHma Reinoso RN Urethral Catheter 04/01/18; 1340; Surg [...] Epidural 04/01/18; 1601; alexandra figueroa; Jeremy Smith CIVIL ENGINEERING DRAFTSPERSON; no longer indicated; Catheter intact, No complications; [...] Hoffman MD - 04/01/2018 4:14 PM EDT [facility] Department of Anesthesiology Post-procedure Note Patient: Alyssa BlandAmi Procedure Summary Date Anesthesia Start Anesthesia Stop Room / Location 04/01/18 1305 1612 [facility] OR [facility] OR Procedure Diagnosis Surgeon Responsible Provider @TOTAL HIP REVISION ARTHROPLASTY, COMPLETE (WRVU 30.28) (Right Hip); MODIFIER PINNACLE ACETABULUM DEPUY (N/A Hip); MODIFIER S-ROM FEMORAL STEM DEPUY (N/A Hip) Prosthetic hip implant failure, initial encounter (Right AMBER mechanical failure) Noemi Hudson MD Chow, Vinca W, MD All Anesthesia Providers: Anesthesiologist: Pedro Hoffman MD CIVIL ENGINEERING DRAFTSPERSON: Jeremy Smith CRNA Most Recent Vitals: 04/01/18 1608 BP: 132/63 Pulse: 69 Resp: 16 Temp: 36.4 ??C (97.5 ??F) SpO2: 96% Pain Patient Location: PACU/[facility] Level of Consciousness: Awake and Alert Pain [...] ml Fentanyl 25 mcg Events/Notes Events: None Resident/CIVIL ENGINEERING DRAFTSPERSON: JEREMY SMITH Second Resident/CIVIL ENGINEERING DRAFTSPERSON: Fellow: Attending Physician: ~~~~~~~~~~~~~~~~~~~~~~~~~~~~~~~~~~~~~~~~~~~~~~~~~~~~~~~~~~~~ * Anesthesia Preprocedure Evaluation - Pedro Hoffman MD - 04/01/2018 11:14 AM EDT Pre-Anesthesia Evaluation for: Alyssa Bland-Obed a 72 y.o. female. Procedure(s): @TOTAL HIP REVISION ARTHROPLASTY, COMPLETE (WRVU 30.28) MODIFIER PINNACLE ACETABULUM DEPUY MODIFIER S-ROM FEMORAL STEM DEPUY Patient Active Problem List Diagnosis ??? Prosthetic hip implant failure ??? Status post right hip replacement, Dr. Moralse 2008 ??? 02/04/2014 Dr. Holland Left Anterior [...] APPROACH performed by Lance Holland MD at [facility] MAIN OR Social History Substance Use [...] seen and examined. 72yo F with prior AMEBR, presenting for right AMBER revision. Symptoms include [...] consented to blood products. Plan discussed with CIVIL ENGINEERING DRAFTSPERSON. PAT Staff Note documented in this encounter Plan of Treatment Upcoming Encounters Date Type Department Care Team (Late st Contact Info) Description 02/26/2024 10:15 AM EDT Office Visit Endocrinology at [facility] [address] Cornell Harper MD [facility] [place] [address] documented as of this encounter Procedures Procedure [...] ml Fentanyl 25 mcg Events/Notes Events: None Resident/CIVIL ENGINEERING DRAFTSPERSON: JEREMY SMITH Second Resident/CIVIL ENGINEERING DRAFTSPERSON: Fellow: Attending Physician: ~~~~~~~~~~~~~~~~~~~~~~~~~~~~~~~~~~~~~~~~~~~~~~~~~~~~~~~~~~~~ documented in this [...] mg documented in this encounter Care Teams Marketing Lead Relationship Specialty Start Date End Date Baylee Elena APRN PCP - General Family Medicine 03/25/18 03/01/22 documented as of this encounter
--- OUTSIDE RECORDS SUMMARY | 2024-01-29 01:17 | XMS_ITS | Encounter Summary ---
[place] [address] Care Team Providers Care Coil Tier Name Role Phone Jamarcus Rodriguez MD Primary Care Provider Encounter Details Date Type Department Care Team (Latest Contact Info) Description 02/26/2014 Anti-Coag Telephone [place] [address] Betty Langford, RN Status post [...] Therapeutic Range: 2.0-3.0 INR: 2.2 Drawn by: [place] [facility] Bleeding: Epistaxis Black tarry stools Gingival [...] Endocrinology at [facility] [place] [address] Cornell Harper MD [facility] [place] [address] documented as of this encounter Procedures Procedure [...] means documented in this encounter Care Teams Coil Tier Relationship Specialty Start Date End Date Jamarcus Rodriguez MD [address] [place] [address] PCP - General 06/07/10 03/24/18 documented as of this encounter
--- OUTSIDE RECORDS SUMMARY | 2024-01-29 01:17 | XMS_ITS | Encounter Summary ---
Author Organization [facility] [place] [address] Care Team Providers Care Call Center Consultant Name Role Phone Baylee Elena APRN Primary Care Provider [phone] Reason for Visit * Auth/Cert Specialty Diagnoses / Procedures Referred By Calin vasquez Referred To Contact Diagnoses Prosthetic hip implant failure, initial encounter Right AMBER mechanical failure Procedures PRO REVISE TOTAL HIP REPLACEMENT @TOTAL HIP REVISION ARTHROPLASTY, COMPLETE (WRVU 30.28) Referral ID Status Reason Start Date Expiration Date Visits Re quested Visits Authorized [id number] 1 1 Encounter Details Date Type Department Care Team (Late st Contact Info) Description 04/01/2018 1:00 PM EDT - 04/01/2018 4:00 PM EDT [place] [address] Noemi Hudson MD [facility] [place] [address] @TOTAL HIP REVISION ARTHROPLASTY, COMPLETE (WRVU 30.28) [...] encounter Discharge Summaries * Lindsey Rice P, SQL DATA ARCHITECT - 04/01/2018 9:42 AM EDT Dis[facility] Age: 72 y.o. Language: Pashto Race: White Ethnicity: Not nor Admit date: 04/01/2018 Discharge date and time: 04/02/2018 Attending Physician: Noemi Hudson MD Discharge Physician: Noemi Hudson MD Follow-up Recommendations for Providers: See discharge instructions for additional details. Future Appointments Date Time Provider Department Center 04/30/2018 3:00 PM [facility] DX ROOM 6 [facility]ray [facility] 04/30/2018 4:00 PM Noemi Hudson MD [facility] [place] [facility] Inpatient Provider Contact Information: Noemi Hudson MD Orthopedics: [phone] After hours and weekends, call [facility] Creative Intern, , and have the Orthopedic resident paged. [...] bowel movement. You can also take an dxdz-uxy-zzimfgm medication, Miralax if needed to combat constipation. [...] as much as possible. Call your doctor ([phone]) if you develop: 1. Fever greater than 100.5 2. Severe nausea or vomiting 3. Increasing pain that is not controlled by pain medications 4. Increasing redness, swelling, or drainage from incisions 5. Change in sensation FOLLOW-UP APPOINTMENTS: 1. You will have follow-up appointments at [facility] as indicated below in Future Appointment and Orders. 2. You will need to have x-rays prior to your follow-up appointment on 04/30/2018. Please come to Radiology, desk 3T, 1 hour BEFORE that appointment for these x-rays. Future Appointments Date Time Provider Department Center 04/30/2018 3:00 PM [facility] DX ROOM 6 Xray [facility] Rad Clin 04/30/2018 4:00 PM Noemi Hudson MD [facility] [address] [place] [address] If you have questions or concerns: Sunday through Sunday, 8 AM - 5 PM, please call Noemi Tristan MD's office at . If it is after 5 PM, the weekend, or holidays, please call and ask to speak with theOrthopedic resident on-call. General Instructions None Future Appointments and Orders Future Appointments Provider Department Dept Phone 04/30/2018 3:00 PM [facility] DX ROOM 6 XRay at [place] [phone] Please go to [facility] ([place] Location). 04/30/2018 4:00 PM Noemi Hudson MD Orthopaedics at [place] [phone] Future Orders Complete By Expires Referral to Home Health - at DISCHARGE [[id number] CPT(R)] As directed Process Instructions: Scheduling Instructions: Comments: DOCUMENTATION FOR VNA SERVICES (INCLUDING THOSE PATIENTS WITH MEDICARE COVERAGE REQUIRING HOME VNA SERVICES AND/OR HOSPICE SERVICES) Alyssa Burnham Discharge to own home: [id number] [facility] [phone] Mobile Not on file. Rotary Engraver's Name: herself with neighbors' assist In discussion with the attending physician, it is certified that this patient is under their care and that they, or a nurse practitioner, clinical nurse specialist or physician's metallurgical laboratory assistant who is working directly with them, [...] for services as follows: Home Health Agency: [facility]. PHONE: [phone] FAX: [phone] Home care orders for Revision Total Hip [...] PT services only then please refer for Care Home(SN) eval if indicated on admission visit Hip [...] contact info: Primary Care Provider: Baylee ElenaNIKKI [phone] Discharge References/Attachments None documented in this encounter [...] bowel movement. You can also take an tbce-yjl-hlkykbk medication, Miralax if needed to combat constipation. [...] as much as possible. Call your doctor ([phone]) if you develop: 1. Fever greater than 100.5 2. Severe nausea or vomiting 3. Increasing pain that is not controlled by pain medications 4. Increasing redness, swelling, or drainage from incisions 5. Change in sensation FOLLOW-UP APPOINTMENTS: 1. You will have follow-up appointments at [facility] as indicated below in Future Appointment and Orders. 2. You will need to have x-rays prior to your follow-up appointment on 04/30/2018. Please come to Radiology, desk , 1 hour BEFORE that appointment for these x-rays. Future Appointments Date Time Provider Department Center 04/30/2018 3:00 PM [facility] DX ROOM 6 [facility] 04/30/2018 4:00 PM Noemi Hudson MD [facility] If you have questions or concerns: Sunday through Sunday, 8 AM - 5 PM, please call Noemi Tristan MD's office at . If it is after 5 PM, the weekend, or holidays, please call and ask to speak with theOrthopedic resident on-call. documented in this encounter Medications [...] Time Provider Department Center 04/30/2018 3:00 PM [facility] DX ROOM 6 [facility] 04/30/2018 4:00 PM Noemi Hudson MD [facility] Associated attestation - Noemi Hudson MD - 04/02/2018 8:26 AM EDT I independently evaluated and saw the patient, and I agree with the above note. Noemi Hudson MD * Cristhian Martel RN - 04/01/2018 6:47 PM EDT Patient arrived [facility] via count includes the [facility] from PACU s/p R hip revision. [...] Time Provider Department Center 04/30/2018 3:00 PM [facility] DX ROOM 6 [facility] [...] APPROACH performed by Lance Holland MD at [facility] MAIN OR Home Medications: Facility-Administered Medications Prior [...] ARTHROPLASTY, COMPLETE (WRVU 30.28) performed by [facility] ??? PRO TOTAL HIP ARTHROPLASTY 02/04/2014 @TOTAL HIP ARTHROPLASTY, ANTERIOR APPROACH performed by Lance Holland MD at [facility] MAIN OR Social History: Patient is a and lives alone in [place], [place] w/ 2 separate platform steps to [...] precs. Understands reason and importanceof using leg asbestos remover to assist abd during supine>sit Skin and soft Tissue: silver mepilex dressing R posterolateral hip CDI Functional Mobility: Supine><sit: out toward R side of flat bed, back in same side, using leg asbestos remover to self assist Sit><stand: w/ FWW w/ [...] and home management ARIELLA MCELROY, PT Pager: [phone] PT Evaluation Code Rationale: ?? Diagnosis & [...] functional performance as outlined in this evaluation. [facility] AM-PAC 6 Clicks/stairs Basic Mobility Inpatient [...] with assist, home with home health Pager: [phone] Reed Kilpatrick OT 04/02/2018 Occupational Therapy Rehabilitation [...] Living Environment Comment Pt lives alone in [place], [place]. There are 2 ASHLEY into 1 level where pt plans to sleep in a flat bed, has a raised toilet, walk-in shower w/ a ASHLEY, grab bars, and a shower bench. 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 Self-Care Dominant Hand right Vision Assessment/Intervention Additional [...] Mobility Assessment/Treatment Assistive Device (Bed Mobility) leg asbestos remover Uwbikw-sd-Kwo [place] (Bed Mobility) supervision required;verbal cues required;nonverbal cues required (demo/gesture) Impairments (Bed Mobility) pain;ROM (range of motion) decreased;strength decreased;balance impaired Comment (Bed Mobility) Pt performed bed mobility w/ increased time and verbal cues for technique. flat bed Transfer Assessment/Treatment Bed-Chair [place] (Transfers) supervision required;verbal cues required Chair-Bed [place] (Transfers) supervision required;verbal cues required Sil-Rknip-Ial Assistive Device (Transfers) rolling walker [place] (Sit-Stand Transfers) supervision required;verbal cues required [place] (Stand-Sit Transfers) supervision required;verbal cues required Jax-Mntfy-Reh Assistive Device (Transfers) rolling walker [place] (Toilet Transfers) supervision required;verbal cues required Assistive Device (Toilet Transfers) bedside commode;rolling walker Maintain Weight Bearing Status (Transfers) able to maintain weight bearing status Impairments (Transfers) pain;ROM (range of motion) decreased;strength decreased;balance impaired Comment (Transfers) Pt performed sit<>stand w/ no overt LOB. Pt requried verbal cues to kick RLE out prior to sit<>stand initially, pt performing indepdently by end of session. Gait Assessment/Treatment [place] (Gait) supervision required Assistive Device (Gait) rolling [...] understanding, taught backtechnique. Upper Body Dressing Assessment/Training [place] Level (UB Dressing) set up required;independent Lower Body Dressing Assessment/Training Assistive Devices (LB Dressing) sock-aid;studio model Position (LB Dressing) sitting;standing [place] Level (LB Dressing) supervision required;verbal cues required Impairments (LB Dressing) pain;ROM (range of motion) decreased;strength decreased;balance impaired Comment (LB Dressing) Pt required increased time and verbal cuse to perform LB dressing w/ AE. Pt issued and educated sock-aid and studio model. Toileting Assessment/Training Assistive Devices (Toileting) bedside commode Position (Toileting) sitting;standing [place] Level (Toileting) conditional independence Impairments (Toileting) pain;ROM [...] Operative Note Patient Name: Alyssa Burnham : [id number] MR#: [id number] Case Date: 04/01/2018 Surgeon: Surgeon(s) and Role: [...] Hudson MD - 04/01/2018 3:42 PM EDT [facility] Operative Note Patient Name: Alyssa Burnham : [id number] MR#: [id number] Case Date: 04/01/2018 Surgeon: Surgeon(s) and Role: * Noemi Hudson MD - Primary * Sarah Mascorro MD - Resident-Surgeon Jad Preoperative Diagnosis: Mechanical failure of right hip replacement Postoperative Diagnosis: Same Procedure Performed: right Total Hip Arthroplasty Revision (CPT code 67118) Anesthesia: Spinal/Epidural IVF: 1100ml of crystaloid Estimated [...] Implant Name Type Inv. Item Serial No. Letterset Press Set Up Operator Lot No. LRB No. Used Action INSER,ALTRX,10D,+[id number] ([id number]) (AUTOREQ) - [id number] IMPLANTS INSER,ALTRX,10D,+[id number] ([id number]) (AUTOREQ) [employer] HEMANTH [id number] Right 1 Implanted HEAD,FEM,S-ROM,ALUMA,32+0 ([id number]) - [id number] IMPLANTS HEAD,FEM,S- ROM,ALUMA,32+0 ([id number]) [employer] HEMANTH [id number] Right 1 Implanted documented in this encounter Plan of Treatment Upcoming Encounters Date Type Department Care Team (Late st Contact Info) Description 02/26/2024 10:15 AM EDT Office Visit Endocrinology at [facility] [place] [address] Cornell Harper [place] [facility] [place] [address] documented as of this encounter Procedures Procedure [...] 3:13 AM EDT) Neutrophils % 90.7 % [facility] Neutr Abs (ANC) 7.83(H) 1.70 - 6.10 x10(3)/mc L [facility] Lymphocytes % 5.3 % [facility] Lymphocytes Abs 0.5(L) 0.9 - 3.2 x10(3)/mc L [facility] Monocytes % 3.6 % [facility] Monocyte Abs 0.3 0.3 - 0.9 x10(3)/mc L [facility] Eosinophils % 0.0 % [facility] Eosinophils Abs 0.0 0.0 - 0.4 x10(3)/[facility] Basophils % 0.2 % [facility] Basophils Abs 0.0 0.0 - 0.1 x10(3)/[facility] Immature Gran % 0.20 % [facility] Comment: Immature granulocytes(IG's)percentage and absolute count will include metamyelocytes, myelocytes, and promyelocytes. Blood smears from CBCs yielding IG's will be scanned manually for concordance. If this scan disagrees with the automated IG or if promyelocytes are noted, a manual differential will be performed. Fay Gran Abs 0.02 0.00 - 0.04 x10(3)/[facility] Blood specimen (specimen) 04/02/2018 3:13 AM EDT 04/02/2018 3:46 AM EDT Narrative Resulting Agency Comment Spec In Lab Sarah Mascorro MD HEMATOLOGY ORDERABLE S [facility] [place] [address] * (ABNORMAL) Hemogram (04/02/2018 3:13 AM EDT) WBC 8.6 4.0 - 9.5 x10(3)/[facility] RBC 4.10 4.00 - 5.21 x10(6)/[facility] Hemoglobin 11.9 11.7 - 15.5 gm/dL [facility] Hematocrit 35.6(L) 35.7 - 45.8 % [facility] MCV 86.8 82.6 - 94.4 fL [facility] MCH 29.0 27.1 - 32.0 pg [facility] MCHC 33.4 31.7 - 35.0 gm/dL [facility] Platelets 203 145 - 357 x10(3)/[facility] RDWSD 42.4 37.0 - 46.0 [facility] RDWCV 13.2 11.5 - 14.1 % [facility] MPV 9.4 7.6 - 12.9 [facility] nRBC % Auto 0.0 % [facility] nRBC Abs Auto 0.000 0.000 - 0.000 x10(3)/[facility] Blood specimen (specimen) 04/02/2018 3:13 AM EDT 04/02/2018 3:46 AM EDT Narrative Resulting Agency Comment Spec In Lab Sarah Mascorro MD HEMATOLOGY ORDERABLE S [facility] [place] [address] * (ABNORMAL) Basic Metabolic Panel (non-fasting) (04/02/2018 3:13 AM EDT) Glucose Lvl 157 65 - 199 mg/dL [facility] Comment:Diabetes: >=200 mg/d L plus symptoms BUN 15 8 - 18 mg/dL [facility] Creatinine 0.90 0.70 - 1.20 mg/dL [facility] Sodium 141 135 - 145 mmol/L [facility] Potassium 4.2 3.5 - 5.0 mmol/L [facility] Comment: Please note: ??Patients with WBC >100,000 may have falsely elevated Potassium levels. ??For accurate Potassium quantification in these patients send serum separator tube (gold top) for subsequent determinations. ??Contact the Clinical Chemistry Laboratory if there are any questions. Chloride 105 98 - 107 mmol/L [facility] CO2 21(L) 22 - 31 mmol/L [facility] Anion Gap 15 5 - 15 mmol/L [facility] Calcium 8.8 8.5 - 10.5 mg/dL [facility] Estimated GFR 65 >=60 mL/min/1. 73 m?? [facility] Comment: The eGFR was calculated using the CKD-EPI equation. As with all creatinine based estimates of kidney function, eGFR values calculated with the CKD-EPI equation are not accurate in patients with acute kidney failure, extremes of body mass or the acutely ill. [email or web address] eGFR 75 >=60 mL/min/1. 73 m?? [facility] Comment: The eGFR was calculated using the CKD-EPI equation. As with all creatinine based estimates of kidney function, eGFR values calculated with the CKD-EPI equation are not accurate in patients with acute kidney failure, extremes of body mass or the acutely ill. [email or web address] Blood specimen (specimen) 04/02/2018 3:13 AM EDT 04/02/2018 3:46 AM EDT Narrative Resulting Agency Comment Spec In Lab Noemi Hudson MD CHEMISTRY ORDERABLE S Performing Organization Address City/State/[facility] Co de Phone Number [facility] [place] [phone] * XR Pelvis (Generic) (04/01/2018 4:49 PM [...] supine radiograph of the pelvis from 04/01/2018 [id number] hours. COMPARISON: 03/28/2018. FINDINGS: Revision right hip arthroplasty hardware appears well-seated.No immediate postoperative complication such as periprosthetic fractureseen. Unchanged appearance of the bony pelvic ring and the post arthroplasty appearance of the left hip. IMPRESSION No immediate right hip revision arthroplasty complication identified. Noemi Hudson MD IMG DX ORDERABLES * Anaerobic Culture (04/01/2018 3:05 PM EDT) Anaerobic Culture No anaerobic organisms isolated [facility] Joint specimen (specimen) RIGHT HIP REGION STRUCTURE / Unknown 04/01/2018 3:05 PM EDT 04/01/2018 4:07 PM EDT Comment:RIGHT HIP CAPSULE. Narrative Resulting Agency Comment Spec In Lab Noemi Hudson MD MICROBIOLOGY - GENE RAL ORDERABLES Performing Organization Address [facility] Co de Phone Number [facility] [place] [address] * Joint Culture (04/01/2018 3:05 PM EDT) Joint Culture No growth [facility] Gram Stain No Neutrophils seen. No microorganisms seen. [facility] Joint specimen (specimen) RIGHT HIP REGION STRUCTURE / Unknown 04/01/2018 3:05 PM EDT 04/01/2018 4:07 PM EDT Comment:RIGHT HIP CAPSULE. Narrative Resulting Agency Comment Spec In Lab Noemi Hudson MD MICROBIOLOGY - GENE RAL ORDERABLES Performing Organization Address City/[facility]/ZIP Co de Phone Number [facility] [place] [address] * Anaerobic Culture (04/01/2018 2:20 PM EDT) Anaerobic Culture No anaerobic organisms isolated [facility] Joint fluid specimen (specimen) RIGHT HIP REGION STRUCTURE / Unknown 04/01/2018 2:20 PM EDT 04/01/2018 2:48 PM EDT Comment:RIGHT HIP FLUID. Narrative Resulting Agency Comment Spec In Lab Noemi Hudson MD MICROBIOLOGY - GENE RAL ORDERABLES Performing Organization Address [facility] Co de Phone Number [facility] [place] [address] * Joint Culture (04/01/2018 2:20 PM EDT) Joint Culture No growth at 14 days. [facility] Gram Stain Cytocentrifuge Gram Stain performed Neutrophils seen No microorganisms seen. [facility] Joint fluid specimen (specimen) RIGHT HIP REGION STRUCTURE / Unknown 04/01/2018 2:20 PM EDT 04/01/2018 2:48 PM EDT Comment:RIGHT HIP FLUID. Narrative Resulting Agency Comment Spec In Lab Noemi Hudson MD MICROBIOLOGY - GENE RAL ORDERABLES Performing Organization Address [facility] Co de Phone Number [facility] [place] [address] * Cell Count Body Fluid Hip, Right (04/01/2018 2:20 PM EDT) Spec Type BF Hip, Right [facility] Color BF Brown [facility] Appearance BF Cloudy [facility] WBC BF Ct 787 /[facility] Comment: Guideline listed below apply to [...] by Miryam Holm. Polymorph % 27 % [facility] Comment: Polymorphonuclear cell percent and absolute values may contain Neutrophils, Eosinophils, and Basophils. Body fluid smear will be scanned manually for concordance. Mononuc % 73 % [facility] Comment: Mononuclear cell percent and absolute values may contain Lymphocytes and Monocytes. Body fluid smear will be scanned manually for concordance. Polymorph BF ABS 209 /[facility] Comment: Polymorphonuclear cell percent and absolute values may contain Neutrophils, Eosinophils, and Basophils. Body fluid smear will be scanned manually for concordance. Mononuc ABS 578 /[facility] Comment: Mononuclear cell percent and absolute values may contain Lymphocytes and Monocytes. Body fluid smear will be scanned manually for concordance. Swab from hip region (specimen) 04/01/2018 2:20 PM EDT 04/01/2018 2:36 PM EDT Narrative Resulting Agency Comment Spec In Lab Noemi Hudson MD BODY FLUIDS AND STO OLS ORDERABLES [facility] [place] [address] documented in this encounter Visit Diagnoses Diagnosis [...] Discontinued, Routine 09 (Given - Provid er: Hiam Reinoso RN) ceFAZolin (ANCEF) 1g in dextrose [...] Unit) documented in this encounter Care Teams Call Center Consultant Relationship Specialty Start Date End Date Baylee Elena, NIKKI PCP - General Family Medicine 03/25/18 03/01/22 documented as of this encounter
--- OUTSIDE RECORDS SUMMARY | 2024-01-29 01:17 | XMS_ITS | Encounter Summary ---
[place] [address] Care Team Providers Care Company Controller Name Role Phone Jamarcus Rodriguez MD Primary Care Provider [phone] Encounter Details Date Type Department Care Team (Latest Contact Info) Description 02/16/2014 Anti-Coag Telephone Visit [place] [phone] Julio Rader RN Status post right hip [...] Visit Endocrinology at [facility] [place] [address] Cornell Harper MD [facility] [place] [address] documented as of this encounter Procedures Procedure Name Priority Date/Time Associated Diagnosis Comments EXTERNAL LAB RESULTS Routine 02/16/2014 documented in this encounter Results * (ABNORMAL) External Lab Results (02/16/2014) POC INR 2.1(Normalizer al Lab) 0.9 - 1.1 Comment:[facility] Historical Provider CHEMISTRY ORDERAB LES documented in this encounter Visit Diagnoses Diagnosis Status post right hip replacement Hip joint replacement by other means documented in this encounter Care Teams Company Controller Relationship Specialty Start Date End Date Jamarcus Rodriguez MD [address] [place] [address] PCP - General 06/07/10 03/24/18 documented as of this encounter
--- OUTSIDE RECORDS SUMMARY | 2024-01-29 01:17 | XMS_ITS | Encounter Summary ---
Author Organization [facility] [place] [address] Care Team Providers Care Recreation Attendant Name Role Phone Nirav Turner MD Primary Care Provider [phone] Reason for Referral * Consultation (Routine) - Closed by system - Referral Specialty Diagnoses / Procedures Referred By Contac t Referred To Contact Orthopaedic Surgery Diagnoses Status post right hip replacement Breann Ochoa PA [facility] [place] [address] Referral ID Status Reason Start Date Expiration Date Visits Requested Visits Authorized [id number] Closed by system - Referral Assume Subset of Care 02/06/2014 08/05/2014 1 1 Encounter Details Date Type Department Care Team (Latest Contact Info) Description 02/04/2014 10:11 AM EDT - 02/06/2014 2:24 PM EDT Hospital Encounter 3 [place] [phone] Steff Holland MD [facility] [place] [address] Pain in limb; OA (osteoarthritis); 02/04 Dr. [...] The INR should be reported to the [facility] Ortho clinic at [phone], and you will be informed of any [...] bowel movement. You can also take an wjbf-vgo-nibxpvz medication, miralax if needed to combat constipation. [...] 1. You will have followup appointments at [facility] as indicated in Future Appointment and Orders. Youwill have an xray prior to those appointments so please come to Radiology, desk 3T, 1 hour BEFORE your appointment for those x- rays. (plan to arive at 9:30 am for x-rays) Future Appointments Date Time [facility] Department Center 03/11/2014 10:30 AM Betty Dong APRN [facility] [address] [place] [address] CLIN If you have questions or concerns: [...] mcg/Actuation inhaler 09/02/2010 acetaminophen (TYLENOL) 500 mg tablet Take 2 tablets by mouth every 8 hours. around the clock until February 14 and then as needed. DO NOT EXCEED 3000 mg tylenol in a 24 hour period. 30 tablet 1 02/06/2014 02/17/2014 bisacodyl (DULCOLAX) [address] 1 suppository rectally daily as needed. 60 suppository 3 02/06/2014 01/22/2015 polyethylene glycol (MIRALAX) 17 gram packet Take 17 g by mouth daily as needed. 0 02/06/2014 07/03/2018 senna-docusate (PERICOLACE) 8.6-50 mg per tablet Take 1-4 tablets by mouth 2 times daily. 60 tablet 2 02/06/2014 07/03/2018 warfarin (COUMADIN) 5 mg tablet Take 1 [...] farther apart. 90 tablet 0 02/06/2014 02/17/2014 lovastatin (MEVACOR) 40 mg tablet Take 80 [...] home with family. [facility] LADONNA DAUGHERTY RN * Chad Heath TIRE VULCANIZER - 02/06/2014 11:31 AM EDT Physical Therapy [...] 40 minutes Total timed interventions: 40 minutes BROKOS Araya Physical Therapy Rehabilitation Department Chad Heath PTA Pager # [phone] * Frandy Hooper - 02/06/2014 6:02 AM [...] on chronically, no bridging Pain control: d/c TRUCK ENGINE TECHNICIAN, oral pain medications D/c OSMEL levine Discharge [...] s/p Left Anterior Approach AMBER Surgery: 02/04/2014 [id number] Procedure(s) (LRB): @TOTAL HIP ARTHROPLASTY, ANTERIOR APPROACH [...] 5:09 PM EDT 1700- Pt. Instructed about TRUCK ENGINE TECHNICIAN. * Ashly Dong RN - 02/04/2014 3:54 [...] February 04, 2014 Surgeon: Steff Holland MD Medical Scientist: Frandy Hooper MD Anesthesia: GET Pre-operative diagnosis: Left hip osteoarthritis Post-operative diagnosis: Same Surgical Procedure Performed: Injection left hip with 10 cc marcaine 0.25% with epi, into skin and subcutaneous tissues Left total hip arthroplasty, anterior Hueter approach with Benicia table Left hip intraoperative radiologic examination Components Used: Depuy Corail stem, size 11, standard Colfax cup, 50 mm, solid 32 mm ID, [...] wasperformed. Patient was positioned supine on the Benicia table, both feet and ankles were padded [...] liner was placed and impacted according to mechanical assembly's instructions. Any impinging osteophytes were removed. The [...] and laterally. At the same time, the primary teaching assistant leaned against the thigh to optimize [...] Implant Name Type Inv. Item Serial No. Solar Tech Lot No. LRB No. Used Action CUP,HIP,ACETB,GRPTN,100,50MM ([id number]) (AUTOREQ) - [id number] IMPLANTS CUP,HIP,ACETB,GRPTN,100,50MM ([id number]) (AUTOREQ) [id number] Left 1 Implanted INSER,ALTRX,NT,[id number] ([id number]) (AUTOREQ) - [id number] IMPLANTS INSER,ALTRX,NT,[id number] ([id number]) (AUTOREQ) [id number] Left 1 Implanted STEM,CRL2,STD,SZ11 ([id number]) (AUTOREQ) - [id number] IMPLANTS STEM,CRL2,STD,SZ11 ([id number]) (AUTOREQ) [id number] Left 1 Implanted BALL,ATC,BRN,+5MM,32MM ([id number]) (AUTOREQ) - [id number] IMPLANTS BALL,ATC,BRN,+5MM,32MM ([id number]) (AUTOREQ) [id number] Left 1 Implanted * OR Attestation - [...] Alyssa Stuartult Patient Age: 68 y.o. Language: Mohawk Race: White Ethnicity: Not nor Admit date: 02/04/2014 Discharge date and time: 02/06/2014 Attending Physician: Steff Holland MD Discharge Physician: Steff Holland MD Follow-up Recommendations for Providers: Please see patient discharge instructions for additional details. Inpatient Provider Contact Information: Steff Holland MD Joints: [phone] After hours and weekends, call [facility] Gear Machine Operator, , and have Orthopedic resident paged. Discharge [...] an outside provider Mikael Salgado D.O. in [place] after she did experience increased left hip pain after shoveling 3 mm months. At that time, The aforementioned Orthopaedic provider did order a left hip MRI scan revealed a cam lesion moderate severe degenerative joint disease. She was advised to seek consultation for possible left hip arthroplasty. She does split her time between [place] and [place] to care for her aging parents essentially spending ~ 6 months in [place]. She describes her left hip pain as moderate to severe with difficulty putting her shoes and socks on. She does use a cane for assistance and cgrz-jmi-pmqmhmk anti-inflammatories. She is just about to start [...] Rate: [67-92] Blood Pressure BP: 140/59 mmHg @@ Respiratory Rate Resp: 16 Resp: [16] SpO2 SpO2: 95 % @[id number]@ Art BP BP (Arterial Line): -- Functional [...] The INR should be reported to the [facility] Ortho clinic at [phone], and you will be informed of any [...] bowel movement. You can also take an phoe-lfy-gxxukvx medication, miralax if needed to combat constipation. [...] 1. You will have followup appointments at [facility] as indicated in Future Appointment and Orders. Youwill have an xray prior to those appointments so please come to Radiology, desk 3T, 1 hour BEFORE your appointment for those x- rays. (plan to arive at 9:30 am for x-rays) Future Appointments Date Time Provider Department Center 03/11/2014 10:30 AM Betty Dong APRN [facility] [place] [facility] If you have questions or concerns: Sunday through Sunday, 8 AM- 5 PM, please call Dr. Holland's office at . If it is after 5 PM or on the weekend, please call and ask for orthopedic resident on-call to be paged. Future Appointments and Orders Future Appointments: Provider: Department: Zhou Phone: Center: 03/11/2014 10:30 AM Betty Dong APRN Orthopaedics [phone] [facility] Joint Appt Questionnaire [facility] Orthopaedics [phone] [place] [facility] Future Orders Please Complete By Expires Referral for Anticoagulation Monitoring [BHW699 Custom] Process Instructions: If no progress note [...] Referral to Home Health - at DISCHARGE [LQP3576 CPT(R)] Process Instructions: Scheduling Instructions: Comments: DOCUMENTATION FOR VNA SERVICES Alyssa Burnham Discharge to own home: [address] [place] [phone] (home) Past Due Accounts Clerk's Name: Self In discussion with the attending physician, it is certified that this patient is under their care and that they, or a nurse practitioner, clinical nurse specialist or physician's primary teaching assistant who is working directly with them, [...] for services as follows: Home Health Agency: [facility] PHONE: [phone] FAX: [phone] Home care orders for Total Hip Replacements: [...] PT/INR results to be reported as follows: [facility] Orthopedic anticoagulation (Coumadin) clinic @ ; 2. [...] Questions: Responses: Agency name and contact information [facility] Patient location post discharge Home What services are requested Registered Nurse Physical Therapy Start date 02/07/2014 Responsible MD post discharge contact info PCP/[facility] Orthopaedic Service Primary Care Provider: NIRAV TURNER MD [phone] * Plan of Care - Marcelina Liu [...] 4:45 PM EDT Office of Care Management/Clinical Cushion Filler (CRC)/Initial Assessment CRC Todd Matthew RN (pager [phone]) Patient: Alyssa Burnham : 1945 (68 y.o.) Home: [facility] [address]* LOS: 1 day Care reviewed with Dr. [...] directives: Received ?? Insurance coverage: Medicare AB, ViaSat ?? Admission status: 02/04/14 IPI Order to Admit is appropriate and waiting to be signed by an attending provider; notified Dr. Steff Holland via email. ?? Anticipated barriers to discharge: None ?? Financial concerns: None ?? Identified patient/family concerns r/t discharge: None ?? Bargeman referral indicated: No ?? Baseline functional status/mobility: Independent ?? Current home/community services/equipment: Walker ?? Current functional status/mobility: Walker with stand by assist ?? Anticipated discharge date: Tuesday 02/06 ?? Anticipated discharge place: Home into care of friend ?? Home health agency: [facility] RN/PT orders pended. ?? Transportation at discharge: Friend ?? PCP: NIRAV TURNER MD, Future Appointments Date Time Provider Department Center 03/11/2014 10:30 AM Betty Dong APRN [facility] [place] [facility] Plan: Care Management will continue to monitor progress, follow for continuity of care, and assist with discharge planning. * Initial Assessments - Good Orzoco, VENECIA - 02/05/2014 1:08 PM EDT Occupational [...] APPROACH performed by Steff Holland MD at [facility] MAIN OR Social History: Patient lives alone, however girlfriend will be staying with her for a week. Home Setup: one level, walk in (3 inch step) shower DME: shower chair, higher toilet seat with arms, sleeve ironer, walker, cane Baseline ADL/Mobility: Independent with ADLS [...] eval Total timed interventions: 0 minutes Pager: [phone] GOOD OROZCO OT 02/05/2014 Occupational Therapy Rehabilitation [...] by interface TOTAL HIP ARTHROPLASTY / RIGHT/PINNACLE BRAYDNO./S-ROM FEMORAL Procedure Date: 12/02/2008 ??? Total hip arthroplasty 02/04/2014 @TOTAL HIP ARTHROPLASTY, ANTERIOR APPROACH performed by Steff Holland MD at [facility] MAIN OR Social History: Patient is but has a friend to stay with her at d/c. 1 step x 3 to enter. Ind amb TIRE VULCANIZER Precautions/Special Considerations: WBAT L L/E, standard hip [...] treatment: 0 minutes zakiya FIELDS, PT Pager: [phone] * Plan of Care - Sofia Mills [...] Operative Note Patient Name: Alyssa Burnham : [id number] MR#: [id number] Case Date: 02/04/2014 Surgeon: Surgeon(s) and Role: [...] Visit Endocrinology at [facility] [place] [address] Cornell Harper MD [facility] [place] [address] Pending Results Name Type Priority Associated Diagnoses [...] MD HEMATOLOGY ORDERABLE S Performing Organization Address City/[facility] Co de Phone Number NOLA LAMBERTIUM * (ABNORMAL) Prothrombin Time (02/06/2014 3:35 AM EDT) PT 17.8(H) 12.5 - 15.5 sec CERNER MILLENNIUM Comment: [facility] Transfusion Committee Guidelines: INR less [...] Metabolic Panel (non-fasting) (02/06/2014 3:35 AM EDT) [facility] Glucose Lvl 121 60 - 199 mg/dL CERNER MILLENNIUM Comment:Diabetes: >=200 mg/d L plus symptoms BUN 7(L) 8 - 18 mg/dL CERNER MILLENNIUM Creatinine 0.63(L) 0.70 - 1.20 mg/dL CERNER MILLENNIUM Comment: Please note that the pediatric reference intervals supplied above were not validated at [facility]. Results from pediatric patients should be interpreted [...] the following links into your internet browser. [email or web address] Blood specimen (specimen) 02/06/2014 3:35 AM EDT 02/06/2014 3:56 AM EDT Narrative Resulting Agency Comment Spec In Lab Steff Holland MD CHEMISTRY ORDERABLES [facility] MILLENNIUM * (ABNORMAL) Differential, Automated (02/05/2014 3:21 [...] 12.5 - 15.5 sec CERNER MILLENNIUM Comment: [facility] Transfusion Committee Guidelines: INR less [...] intervals supplied above were not validated at [facility]. Results from pediatric patients should be interpreted [...] the following links into your internet browser. [email or web address] Blood specimen (specimen) 02/05/2014 3:21 AM EDT 02/05/2014 3:40 AM EDT Narrative Resulting Agency Comment Spec In Lab Steff Holland MD CHEMISTRY ORDERABLES [facility] 3[employer] CorporationENNIUM * Surgical Pathology Report (02/04/2014 1:10 PM EDT) Surgical Pathology Report ? [facility] ? Provider: ?? STEFF HOLLAND ? Pt. Name: ?? LUKE-JOHANA Mariaelena, ALYSSA Hanna ? Acc #: ?[id number] ?Pt. ? Col Date: ?? 02/04/2014 ? [...] MD PATHOLOGY/CYTOLOGY O RDERANOE Performing Organization Address [facility] Co de Phone Number NOLA AGUILA * Specimen to Pathology (surgical or derm) (02/04/2014 1:10 PM EDT) AP Specimen 02/04/2014 1:10 PM EDT 02/04/2014 1:10 PM EDT Narrative NOLA KRYSTYNACRISTOBAL - 02/04/2014 1:10 PM EDT Specimen requisition ordered. ??Separate Pathology report to follow Steff Holland MD PATHOLOGY/CYTOLOGY O RDERANOE Performing Organization Address [facility] Co de Phone Number NOLA AGUILA documented [...] EDT 300 mg HYDROmorphone (DILAUDID) 1 mg/mL TRUCK ENGINE TECHNICIAN 30 mL Intravenous, TRUCK ENGINE TECHNICIAN ONLY, Starting on Sun02/04/14 at 1515, Until [...] DALILA) 0900 (Not Given - Provider: Ladonna Daughetry, DALILA - Reason: Patient/family refused) sertraline (ZOLOFT) [...] Ashly Dong RN - Comment: Done by [facility] Nurse.) sodium chloride 0.9 % flush [...] 1238 (New Bag - Provider: Kingsley Degroot, DIRECTOR HYDROGEN STORAGE ENGINEERING) warfarin (COUMADIN) tablet 5 mg (COMPLETED) 5 [...] 02/04/2014 02/05/2014 02/06/2014 HYDROmorphone (DILAUDID) 1 mg/mL TRUCK ENGINE TECHNICIAN 30 mL (CANCELED) Intravenous, TRUCK ENGINE TECHNICIAN ONLY, Starting on Sun02/04/14 at 1515, Until [...] 30-60 minutes., Routine 06 (Given - Provider: oSfia Mills RN)1009 (See Alternative - Provider: Marcelina [...] Unit) documented in this encounter Care Teams Recreation Attendant Relationship Specialty Start Date End Date Nirav Turner MD [address] [place] [address] PCP - General 06/07/10 03/24/18 documented as of this encounter
--- OUTSIDE RECORDS SUMMARY | 2024-01-29 01:17 | XMS_ITS | Encounter Summary ---
[place] [address] Care Team Providers Care Geologist Petroleum Name Role Phone Jamarcus Rodriguez MD Primary Care Provider [phone] Reason for Visit * Reason Onset Date Comments Medication Refill 02/17/2014 Encounter Details Date Type Department Care Team (Late st Contact Info) Description 02/17/2014 Refill [place] [phone] Lance Holland MD [address] [place] [address] Social History Tobacco Use Types Packs/Day Years [...] 10:15 AM EDT Office Visit Endocrinology at [facility] [place] [address] Cornell Harper MD [facility] [place] [address] documented as of this encounter Visit Diagnoses Not on filedocumented in this encounter Care Teams Geologist Petroleum Relationship Specialty Start Date End Date Jamarcus Rodriguez MD [address] [place] [address] PCP - General 06/07/10 03/24/18 documented as of this encounter
--- OUTSIDE RECORDS SUMMARY | 2024-01-29 01:17 | XMS_ITS | Encounter Summary ---
Author Organization [facility] Address [facility] [place] [address] Care Team Providers Care Condenser Winder Name Role Phone Jamarcus Rodriguez MD Primary Care Provider [phone] Encounter Details Date Type Department Care Team (Late st Contact Info) Description 02/23/2014 Anti-Coag Telephone [place] [phone] Arnel Tucker MD [facility] [place] [address] Social History Tobacco Use Types Packs/Day Years [...] Office Visit Endocrinology at [facility] [place] [address] Cornell Harper MD [facility] [place] [address] documented as of this encounter Visit Diagnoses Not on filedocumented in this encounter Care Teams Condenser Winder Relationship Specialty Start Date End Date Jamarcus Rodriguez MD [address] [place] [address] PCP - General 06/07/10 03/24/18 documented as of this encounter
--- OUTSIDE RECORDS SUMMARY | 2024-01-29 01:17 | XMS_ITS | Encounter Summary ---
[place] [address] Care Team Providers Care Control Systems Drafting Officer Name Role Phone Baylee Elena APRN Primary Care Provider [phone] Reason for Visit * Reason Onset Date Comments Pre Procedure Call 03/28/2018 Encounter Details Date Type Department Care Team (Late st Contact Info) Description 03/28/2018 Telephone [place] [phone] Noemi Hudson MD [facility] [place] [address] Pre Procedure Call Social History Tobacco Use [...] left a message for patient to call [phone] directly and schedule surgery with Dr. Hudson on 04/01/18. documented in this encounter Plan of Treatment Upcoming Encounters Date Type Department Care Team (Late st Contact Info) Description 02/26/2024 10:15 AM EDT Office Visit Endocrinology at [facility] [place] [address] Cornell Harper MD [facility] [place] [address] documented as of this encounter Visit Diagnoses Not on filedocumented in this encounter Care Teams Control Systems Drafting Officer Relationship Specialty Start Date End Date Baylee Elena APRN PCP - General Family Medicine 03/25/18 03/01/22 documented as of this encounter
--- OUTSIDE RECORDS SUMMARY | 2024-01-29 01:17 | XMS_ITS | Encounter Summary ---
[place] [address] Care Team Providers Care Interviewing Clerk Name Role Phone Jamarcus Rodriguez MD Primary Care Provider [phone] Encounter Details Date Type Department Care Team (Latest Contact Info) Description 02/12/2014 Anti-Coag Telephone [place] [phone] Marley Tom, RN Status post right hip [...] Therapeutic Range: 2.0-3.0 INR: 2.1 Drawn by: [facility] Patient states that she was [...] 10:15 AM EDT Office [place] [address] Cornell Harper MD [facility] [address] documented as of this encounter Procedures Procedure Name Priority Date/Time Associated Diagnosis Comments EXTERNAL LAB RESULTS Routine 02/12/2014 documented in this encounter Results * (ABNORMAL) External Lab Results (02/12/2014) POC INR 2.1(Manager Clinical Research al Lab) 0.9 - 1.1 Comment:[facility] 02/12/2014 Historical Provider CHEMISTRY ORDERAB LES documented in this encounter Visit Diagnoses Diagnosis Status post right hip replacement Hip joint replacement by other means documented in this encounter Care Teams Interviewing Clerk Relationship Specialty Start Date End Date Jamarcus Rodriguez MD [address] [place] [address] PCP - General 06/07/10 03/24/18 documented as of this encounter
--- OUTSIDE RECORDS SUMMARY | 2024-01-29 01:17 | XMS_ITS | Encounter Summary ---
Author Organization [facility] [place] [address] Care Team Providers Care Manager Heavy Equipment Name Role Phone Ulices Baylee Mayorga APRN Primary Care Provider [phone] Encounter Details Date Type Department Care Team (Latest Contact Info) Description 03/28/2018 12:50 PM EDT Laboratory [place] [phone] Prosthetic hip implant failure, initial encounter; Pain [...] 10:15 AM EDT Office [place] [phone] Cornell Harper MD [facility] [place] [address] documented as of this encounter Procedures Procedure [...] extremity TYPE AND SCREEN, SDP ([place], [facility] [place] Routine 03/28/2018 1:08 [...] Sed Rate 11 0 - 20 mm/hr [facility] Blood specimen (specimen) Venous Draw / Unknown 03/28/2018 1:08 PM EDT 03/28/2018 1:36 PM EDT Narrative Resulting Agency Comment Spec In Lab Good AMES HEMATOLOGY ORDERABL ES Performing Organization Address [facility]/ZIP Co de Phone Number [facility] [place] [address] * CRP, acute inflammation (03/28/2018 1:08 PM EDT) Pathologist [facility] CRP 3.4 <=4.9 mg/L [facility] Blood specimen (specimen) Venous Draw / Unknown 03/28/2018 1:08 PM EDT 03/28/2018 1:40 PM EDT Narrative Resulting Agency Comment Spec In Lab Good AMES CHEMISTRY ORDERABLE S Performing Organization Address [facility] Co de Phone Number [facility] [place] [address] * ABORH Recheck Status (03/28/2018 1:08 PM EDT) Pathologist [facility] ABORH Type Recheck Completed [facility] Blood specimen (specimen) 03/28/2018 1:08 PM EDT 03/28/2018 1:37 PM EDT Narrative Resulting Agency Comment Spec In Lab Noemi Hudson MD BLOOD BANK LAB ORDE [place] Performing Organization Address [facility]/ZIP Co de Phone Number [facility] [place] [address] * Differential, Automated (03/28/2018 1:08 PM EDT) Pathologist [facility] Neutrophils % 70.6 % [facility] Neutr Abs (ANC) 4.50 1.70 - 6.10 x10(3)/[facility] Lymphocytes % 20.4 % [facility] Lymphocytes Abs 1.3 0.9 - 3.2 x10(3)/[facility] Monocytes % 6.8 % [facility] Monocyte Abs 0.4 0.3 - 0.9 x10(3)/[facility] Eosinophils % 1.6 % [facility] Eosinophils Abs 0.1 0.0 - 0.4 x10(3)/[facility] Basophils % 0.3 % [facility] Basophils Abs 0.0 0.0 - 0.1 x10(3)/[facility] Immature Gran % 0.30 % [facility] Comment: Immature granulocytes(IG's)percentage and absolute count will include metamyelocytes, myelocytes, and promyelocytes. Blood smears from CBCs yielding IG's will be scanned manually for concordance. If this scan disagrees with the automated IG or if promyelocytes are noted, a manual differential will be performed. Fay Gran Abs 0.02 0.00 - 0.04 x10(3)/[facility] Blood specimen (specimen) 03/28/2018 1:08 PM EDT 03/28/2018 1:36 PM EDT Narrative Resulting Agency Comment Spec In Lab Noemi Hudson MD HEMATOLOGY ORDERABL ES [facility] [place] [address] * Hemogram (03/28/2018 1:08 PM EDT) WBC 6.4 4.0 - 9.5 x10(3)/[facility] RBC 4.59 4.00 - 5.21 x10(6)/[facility] Hemoglobin 13.0 11.7 - 15.5 gm/dL [facility] Hematocrit 39.5 35.7 - 45.8 % [facility] MCV 86.1 82.6 - 94.4 fL [facility] MCH 28.3 27.1 - 32.0 pg [facility] MCHC 32.9 31.7 - 35.0 gm/dL [facility] Platelets 213 145 - 357 x10(3)/[facility] RDWSD 41.9 37.0 - 46.0 [facility] RDWCV 13.3 11.5 - 14.1 % [facility] MPV 9.7 7.6 - 12.9 [facility] nRBC % Auto 0.0 % [facility] nRBC Abs Auto 0.000 0.000 - 0.000 x10(3)/[facility] Blood specimen (specimen) 03/28/2018 1:08 PM EDT 03/28/2018 1:36 PM EDT Narrative Resulting Agency Comment Spec In Lab Noemi Hudson MD HEMATOLOGY ORDERABL ES Performing Organization Address [facility] Co de Phone Number [facility] [place] [address] * Antibody screen (03/28/2018 1:08 PM EDT) Ab Screen Interp Negative [facility] Expires at [id number] on: 04/04/2018 [facility] Blood specimen (specimen) 03/28/2018 1:08 PM EDT 03/28/2018 1:37 PM EDT Narrative Resulting Agency Comment Spec In Lab Noemi Hudson MD BLOOD BANK LAB ORDE RABKARL Performing Organization Address City/[facility]/ZIP Co de Phone Number [facility] [place] [address] * ABO/Rh Typing (03/28/2018 1:08 PM EDT) ABORH Type A Pos [facility] Blood specimen (specimen) 03/28/2018 1:08 PM EDT 03/28/2018 1:37 PM EDT Narrative Resulting Agency Comment Spec In Lab Noemi Hudson MD BLOOD BANK LAB ORDE RABKARL Performing Organization Address City/[facility]/ZIP Co de Phone Number [facility] [place] [address] * APTT (03/28/2018 1:08 PM EDT) PTT 29 25 - 37 sec [facility] Comment: The PTT is NOT appropriate for heparin monitoring. Use the Anti-Xa level for heparin monitoring (HEP UFH) or LMWH monitoring (HEP LMW). A PTT less than 37 seconds generally indicates adequate hemostasis. Blood specimen (specimen) 03/28/2018 1:08 PM EDT 03/28/2018 1:36 PM EDT Narrative Resulting Agency Comment Spec In Lab Noemi Hudson MD HEMATOLOGY ORDERABL ES Performing Organization Address [facility] Co de Phone Number [facility] [place] [address] * Prothrombin Time (03/28/2018 1:08 PM EDT) PT 11.1 9.4 - 12.5 sec [facility] INR 1.0 [facility] Comment: An INR <2.0 indicates [...] MD HEMATOLOGY ORDERABL ES Performing Organization Address [facility]/ZIP Co de Phone Number [facility] [place] [address] * (ABNORMAL) Basic Metabolic Panel (non-fasting) (03/28/2018 1:08 PM EDT) Glucose Lvl 98 65 - 199 mg/dL [facility] Comment:Diabetes: >=200 mg/d L plus symptoms BUN 17 8 - 18 mg/dL [facility] Creatinine 0.83 0.70 - 1.20 mg/dL [facility] Sodium 141 135 - 145 mmol/L [facility] Potassium 4.0 3.5 - 5.0 mmol/L [facility] Comment: Please note: ??Patients with WBC >100,000 may have falsely elevated Potassium levels. ??For accurate Potassium quantification in these patients send serum separator tube (gold top) for subsequent determinations. ??Contact the Clinical Chemistry Laboratory if there are any questions. Chloride 103 98 - 107 mmol/L [facility] CO2 22 22 - 31 mmol/L [facility] Anion Gap 16(H) 5 - 15 mmol/L [facility] Calcium 9.4 8.5 - 10.5 mg/dL [facility] Estimated GFR 71 >=60 mL/min/1. 73 m?? [facility] Comment: The eGFR was calculated using the CKD-EPI equation. As with all creatinine based estimates of kidney function, eGFR values calculated with the CKD-EPI equation are not accurate in patients with acute kidney failure, extremes of body mass or the acutely ill. [email or web address] [place] eGFR 83 >=60 mL/min/1. 73 m?? [facility] Comment: The eGFR was calculated using the CKD-EPI equation. As with all creatinine based estimates of kidney function, eGFR values calculated with the CKD-EPI equation are not accurate in patients with acute kidney failure, extremes of body mass or the acutely ill. [email or web address] Blood specimen (specimen) 03/28/2018 1:08 PM EDT 03/28/2018 1:36 PM EDT Narrative Resulting Agency Comment Spec In Lab Noemi Hudson MD CHEMISTRY ORDERABLE S [facility] [place] [address] documented in this encounter Visit Diagnoses Diagnosis Prosthetic hip implant failure, initial encounter Pain of right lower extremity documented in this encounter Care Teams Manager Heavy Equipment Relationship Specialty Start Date End Date Baylee Elena APRN PCP - General Family Medicine 03/25/18 03/01/22 documented as of this encounter
--- OUTSIDE RECORDS SUMMARY | 2024-01-29 01:17 | XMS_ITS | Encounter Summary ---
[place] [address] Care Team Providers Care Highway Safety Engineer Name Role Phone Samnicholas Baylee Nicholas JORDAN Primary Care Provider [phone] Encounter Details Date Type Department Care Team (Latest Contact Info) Description 03/28/2018 12:40 PM EDT Clinical [place] [address] Prosthetic hip implant failure, initial [...] Visit Endocrinology at [facility] [place] [address] Cornell Harper MD [facility] [place] [id number] Pending Results Name Type Priority Associated Diagnoses [...] (Bezet) 425 ms MUSE SYSTEM Calculated P Williams 50 degrees MUSE SYSTEM Calculated R Williams 30 degrees MUSE SYSTEM Calculated T Williams 29 degrees MUSE SYSTEM INTERPRETATION Normal sinus [...] extremity documented in this encounter Care Teams Highway Safety Engineer Relationship Specialty Start Date End Date Baylee Elena APRN PCP - General Family Medicine 03/25/18 03/01/22 documented as of this encounter
--- OUTSIDE RECORDS SUMMARY | 2024-01-29 01:17 | XMS_ITS | Encounter Summary ---
Author Organization [facility] [place] [address] Care Team Providers Care Health Science Specialist Name Role Phone Ulices Baylee Mayorga APRN Primary Care Provider [phone] Reason for Visit * Reason Comments Follow-up Right hip pain incre ased Encounter Details Date Type Department Care Team (Late st Contact Info) Description 03/28/2018 10:30 AM EDT Office [place] [phone] Noemi Hudson MD [facility] [place] [address] Prosthetic hip implant failure, initial encounter; Pain [...] failure and ceramic on metal. Questionnaire Responses: [facility] Surgical Postop Visit 03/27/2018 PROMIS-10 General Health [...] Office Visit Endocrinology at [facility] [place] [address] Cornell Harper MD [facility] [place] [address] Pending Results Name Type Priority Associated Diagnoses [...] EDT) PTT 29 25 - 37 sec [facility] Comment: The PTT is NOT appropriate for heparin monitoring. Use the Anti-Xa level for heparin monitoring (HEP UFH) or LMWH monitoring (HEP LMW). A PTT less than 37 seconds generally indicates adequate hemostasis. Blood specimen (specimen) 03/28/2018 1:08 PM EDT 03/28/2018 1:36 PM EDT Narrative Resulting Agency Comment Spec In Lab Noemi Hudson MD HEMATOLOGY ORDERABL ES Performing Organization Address [facility] de Phone Number [facility] [place] [address] * Prothrombin Time (03/28/2018 1:08 PM EDT) PT 11.1 9.4 - 12.5 sec [facility] INR 1.0 [facility] Comment: An INR <2.0 [...] MD HEMATOLOGY ORDERABL ES Performing Organization Address [facility] de Phone Number [facility] [place] [address] * (ABNORMAL) Basic Metabolic Panel (non-fasting) (03/28/2018 1:08 PM EDT) Glucose Lvl 98 65 - 199 mg/dL [facility] Comment:Diabetes: >=200 mg/d L plus symptoms BUN 17 8 - 18 mg/dL [facility] Creatinine 0.83 0.70 - 1.20 mg/dL [facility] Sodium 141 135 - 145 mmol/L [facility] Potassium 4.0 3.5 - 5.0 mmol/L [facility] Comment: Please note: ??Patients with WBC >100,000 may have falsely elevated Potassium levels. ??For accurate Potassium quantification in these patients send serum separator tube (gold top) for subsequent determinations. ??Contact the Clinical Chemistry Laboratory if there are any questions. Chloride 103 98 - 107 mmol/L [facility] CO2 22 22 - 31 mmol/L [facility] Anion Gap 16(H) 5 - 15 mmol/L [facility] Calcium 9.4 8.5 - 10.5 mg/dL [facility] Estimated GFR 71 >=60 mL/min/1. 73 m?? [facility] Comment: The eGFR was calculated using the CKD-EPI equation. As with all creatinine based estimates of kidney function, eGFR values calculated with the CKD-EPI equation are not accurate in patients with acute kidney failure, extremes of body mass or the acutely ill. [email or web address] eGFR 83 >=60 mL/min/1. 73 m?? [facility] Comment: The eGFR was calculated using the CKD-EPI equation. As with all creatinine based estimates of kidney function, eGFR values calculated with the CKD-EPI equation are not accurate in patients with acute kidney failure, extremes of body mass or the acutely ill. [email or web address] Blood specimen (specimen) 03/28/2018 1:08 PM EDT 03/28/2018 1:36 PM EDT Narrative Resulting Agency Comment Spec In Lab Noemi Hudson MD CHEMISTRY ORDERABLE S [facility] [place] [address] documented in this encounter Visit Diagnoses Diagnosis Prosthetic hip implant failure, initial encounter Pain of right lower extremity Status post right hip replacement, Dr. Morales 2008 Hip joint replacement by other means documented in this encounter Care Teams Health Science Specialist Relationship Specialty Start Date End Date Baylee Elena APRN PCP - General Family Medicine 03/25/18 03/01/22 documented as of this encounter
--- OUTSIDE RECORDS SUMMARY | 2024-01-29 01:17 | XMS_ITS | Encounter Summary ---
Author Organization [facility] Address [facility] [place] [address] Care Team Providers Care Director Of Billing Name Role Phone Ulices Baylee Mayorga APRN Primary Care Provider [phone] Reason for Visit * Auth/Cert Specialty Diagnoses / Procedures Referred By Calin vasquez Referred To Contact Diagnoses Prosthetic hip implant failure, initial encounter Right AMBER mechanical failure Procedures PRO REVISE TOTAL HIP REPLACEMENT @TOTAL HIP REVISION ARTHROPLASTY, COMPLETE (WRVU 30.28) Referral ID Status Reason Start Date Expiration Date Visits Re quested Visits Authorized [id number] 1 1 Encounter Details Date Type Department Care Team (Latest Contact Info) Description 04/01/2018 10:56 AM EDT - 04/02/2018 5:37 PM EDT Hospital Encounter 3 [place] [address] Noemi Hudson MD [facility] [place] [address] Prosthetic hip implant failure, initial encounter; Pain [...] encounter Discharge Summaries * Lindsey Rice P, INFORMATION SYSTEMS TECHNICIAN - 04/01/2018 9:42 AM EDT Discharge Summary Patient Name: Alyssa Burnham Patient Age: 72 y.o. Language: Kazakh Race: White Ethnicity: Not nor Admit date: 04/01/2018 Discharge date and time: 04/02/2018 Attending Physician: Noemi Hudsno MD Discharge Physician: Noemi Hudson MD Follow-up Recommendations for Providers: See discharge instructions for additional details. Future Appointments Date Time Provider Department Center 04/30/2018 3:00 PM [facility] DX ROOM [facility] 04/30/2018 4:00 PM Noemi Hudson MD [facility] Inpatient Provider Contact Information: Noemi Hudson MD Orthopedics: [phone] After hours and weekends, call [facility] Parcel Contractor, , and have the Orthopedic resident paged. [...] bowel movement. You can also take an mxdw-sum-cavswjn medication, Miralax if needed to combat constipation. [...] as much as possible. Call your doctor ([phone]) if you develop: 1. Fever greater than 100.5 2. Severe nausea or vomiting 3. Increasing pain that is not controlled by pain medications 4. Increasing redness, swelling, or drainage from incisions 5. Change in sensation FOLLOW-UP APPOINTMENTS: 1. You will have follow-up appointments at [facility] as indicated below in Future Appointment and Orders. 2. You will need to have x-rays prior to your follow-up appointment on 04/30/2018. Please come to Radiology, desk 3T, 1 hour BEFORE that appointment for these x-rays. Future Appointments Date Time Provider Department Center 04/30/2018 3:00 PM [facility] DX ROOM 6 [facility] 04/30/2018 4:00 PM Noemi Hudson MD [facility] [address] [place] [address] If you have questions or concerns: Sunday through Sunday, 8 AM - 5 PM, please call Noemi Tristan MD's office at . If it is after 5 PM, the weekend, or holidays, please call and ask to speak with theOrthopedic resident on-call. General Instructions None Future Appointments and Orders Future Appointments Provider Department Dept Phone 04/30/2018 3:00 PM [facility] DX ROOM 6 X[facility] at [place] [phone] Please go to Child Welfare Consultant Area 3T ([place] Location). 04/30/2018 4:00 PM Noemi Hudson MD Orthopaedics at [place] [phone] Future Orders Complete By Expires Referral to Home Health - at DISCHARGE [[id number] CPT(R)] As directed Process Instructions: Scheduling Instructions: Comments: DOCUMENTATION FOR VNA SERVICES (INCLUDING THOSE PATIENTS WITH MEDICARE COVERAGE REQUIRING HOME VNA SERVICES AND/OR HOSPICE SERVICES) Alyssa Burnham Discharge to own home: [address] [facility] [address] Mobile Not on file. Continuity Clerk's Name: herself with neighbors' assist In discussion with the attending physician, it is certified that this patient is under their care and that they, or a nurse practitioner, clinical nurse specialist or physician's evaluation assistant who is working directly with them, [...] for services as follows: Home Health Agency: [facility] Linkedwith. PHONE: [phone] FAX: [phone] Home care orders for Revision Total Hip [...] PT services only then please refer for Shelter(SN) eval if indicated on admission visit Hip [...] contact info: Primary Care Provider: Baylee Elena, INFORMATION SYSTEMS TECHNICIAN [phone] Discharge References/Attachments None documented in this encounter Discharge Instructions * Patient Instructions* Lindsey Rice, INFORMATION SYSTEMS TECHNICIAN - 04/01/2018 9:46 AM EDT Activity: 1. [...] bowel movement. You can also take an bbmx-oje-nfzxjns medication, Miralax if needed to combat constipation. [...] as much as possible. Call your doctor ([phone]) if you develop: 1. Fever greater than 100.5 2. Severe nausea or vomiting 3. Increasing pain that is not controlled by pain medications 4. Increasing redness, swelling, or drainage from incisions 5. Change in sensation FOLLOW-UP APPOINTMENTS: 1. You will have follow-up appointments at [facility] as indicated below in Future Appointment and Orders. 2. You will need to have x-rays prior to your follow-up appointment on 04/30/2018. Please come to Radiology, desk 3T, 1 hour BEFORE that appointment for these x-rays. Future Appointments Date Time Provider Department Center 04/30/2018 3:00 PM [facility] DX ROOM 6 [facility] 04/30/2018 4:00 PM Noemi Hudson MD [facility] [place] [facility] If you have questions or concerns: [...] Time Provider Department Center 04/30/2018 3:00 PM [facility] DX ROOM 6 [facility] 04/30/2018 4:00 PM Noemi Hudson MD [facility] [place] [facility] Associated attestation - Noemi Hudson MD - 04/02/2018 8:26 AM EDT I independently evaluated and saw the patient, and I agree with the above note. Noemi Hudson MD * Cristhian Martel RN - 04/01/2018 6:47 PM EDT Patient [facility] via [facility] from PACU s/p R hip [...] Time Provider Department Center 04/30/2018 3:00 PM [facility] DX ROOM 6 Xray [facility] [...] APPROACH performed by Lance Holland MD at [facility] MAIN OR Home Medications: Facility-Administered [...] 30.28) [facility] ??? PRO TOTAL HIP ARTHROPLASTY 02/04/2014 @TOTAL HIP ARTHROPLASTY, ANTERIOR APPROACH performed by Lance Holland MD at [facility] MAIN OR Social History: Patient is a and lives alone in [place] w/ 2 separate platform steps to [...] precs. Understands reason and importanceof using leg analytical technician to assist abd during supine>sit Skin and soft Tissue: silver mepilex dressing R posterolateral hip CDI Functional Mobility: Supine><sit: out toward R side of flat bed, back in same side, using leg analytical technician to self assist Sit><stand: w/ FWW w/ [...] and home management ARIELLA MCELROY, PT Pager: [phone] PT Evaluation Code Rationale: ?? Diagnosis & [...] functional performance as outlined in this evaluation. [facility] 6 Clicks/stairs Basic Mobility Inpatient Short [...] with assist, home with home health Pager: [phone] Reed Kilpatrick OT 04/02/2018 Occupational Therapy Rehabilitation [...] Living Environment Comment Pt lives alone in [place], [place]. There are 2 ASHLEY into 1 level where pt plans to sleep in a flat bed, has a raised toilet, walk-in shower w/ a ASHLEY, grab bars, and a shower bench. 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 Self-Care Dominant Hand right Vision Assessment/Intervention [...] Mobility Assessment/Treatment Assistive Device (Bed Mobility) leg analytical technician Nndhlu-sy-Ebx Box Elder (Bed Mobility) supervision required;verbal cues required;nonverbal cues required (demo/gesture) Impairments (Bed Mobility) pain;ROM (range of motion) decreased;strength decreased;balance impaired Comment (Bed Mobility) Pt performed bed mobility w/ increased time and verbal cues for technique. flat bed Transfer Assessment/Treatment Bed-Chair Box Elder (Transfers) supervision required;verbal cues required Chair-Bed Box Elder (Transfers) supervision required;verbal cues required Hff-Vsozb-Uad Assistive Device (Transfers) rolling walker Box Elder (Sit-Stand Transfers) supervision required;verbal cues required Box Elder (Stand-Sit Transfers) supervision required;verbal cues required Abg-Hzios-Tbb Assistive Device (Transfers) rolling walker Box Elder (Toilet Transfers) supervision required;verbal cues required Assistive Device (Toilet Transfers) bedside commode;rolling walker Maintain Weight Bearing Status (Transfers) able to maintain weight bearing status Impairments (Transfers) pain;ROM (range of motion) decreased;strength decreased;balance impaired Comment (Transfers) Pt performed sit<>stand w/ no overt LOB. Pt requried verbal cues to kick RLE out prior to sit<>stand initially, pt performing indepdently by end of session. Gait Assessment/Treatment Box Elder (Gait) supervision required Assistive Device (Gait) rolling [...] understanding, taught backtechnique. Upper Body Dressing Assessment/Training Box Elder Level (UB Dressing) set up required;independent Lower Body Dressing Assessment/Training Assistive Devices (LB Dressing) sock-aid;collection technician Position (LB Dressing) sitting;standing Box Elder Level (LB Dressing) supervision required;verbal cues required Impairments (LB Dressing) pain;ROM (range of motion) decreased;strength decreased;balance impaired Comment (LB Dressing) Pt required increased time and verbal cuse to perform LB dressing w/ AE. Pt issued and educated sock-aid and collection technician. Toileting Assessment/Training Assistive Devices (Toileting) bedside commode Position (Toileting) sitting;standing Box Elder Level (Toileting) conditional independence Impairments (Toileting) pain;ROM [...] Operative Note Patient Name: Alyssa Burnham : [id number] MR#: [id number] Case Date: 04/01/2018 Surgeon: Surgeon(s) and Role: [...] Hudson MD - 04/01/2018 3:42 PM EDT [facility] Operative Note Patient Name: Alyssa Burnham : [id number] MR#: [id number] Case Date: 04/01/2018 Surgeon: Surgeon(s) and Role: * Noemi Hudson MD - Primary * Sarah Mascorro MD - Resident-Surgeon Jad Preoperative Diagnosis: Mechanical failure of right hip replacement Postoperative Diagnosis: Same Procedure Performed: right Total Hip Arthroplasty Revision (CPT code 30056) Anesthesia: Spinal/Epidural IVF: 1100ml of crystaloid Estimated [...] Implant Name Type Inv. Item Serial No. Real Estate Job Titles Lot No. LRB No. Used Action INSER,ALTRX,10D,+[id number] ([id number]) (AUTOREQ) - [id number] IMPLANTS INSER,ALTRX,10D,+[id number] ([id number]) (AUTOREQ) [employer] HEMANTH [id number] Right 1 Implanted HEAD,FEM,S-ROM,ALUMA,32+0 ([id number]) - [id number] IMPLANTS HEAD,FEM,S- ROM,ALUMA,32+0 ([id number]) [employer] HEMANTH [id number] Right 1 Implanted documented in this encounter Plan of Treatment Upcoming Encounters Date Type Department Care Team (Late st Contact Info) Description 02/26/2024 10:15 AM EDT Office Visit Endocrinology at [facility] [place] [address] Cornell Harper MD [facility] [place] [address] documented as of this encounter Procedures Procedure [...] 3:13 AM EDT) Neutrophils % 90.7 % [facility] Neutr Abs (ANC) 7.83(H) 1.70 - 6.10 x10(3)/mc L [facility] Lymphocytes % 5.3 % [facility] Lymphocytes Abs 0.5(L) 0.9 - 3.2 x10(3)/mc L [facility] Monocytes % 3.6 % [facility] Monocyte Abs 0.3 0.3 - 0.9 x10(3)/[facility] Eosinophils % 0.0 % [facility] Eosinophils Abs 0.0 0.0 - 0.4 x10(3)/[facility] Basophils % 0.2 % [facility] Basophils Abs 0.0 0.0 - 0.1 x10(3)/[facility] Immature Gran % 0.20 % [facility] Comment: Immature granulocytes(IG's)percentage and absolute count will include metamyelocytes, myelocytes, and promyelocytes. Blood smears from CBCs yielding IG's will be scanned manually for concordance. If this scan disagrees with the automated IG or if promyelocytes are noted, a manual differential will be performed. Fay Gran Abs 0.02 0.00 - 0.04 x10(3)/[facility] Blood specimen (specimen) 04/02/2018 3:13 AM EDT 04/02/2018 3:46 AM EDT Narrative Resulting Agency Comment Spec In Lab Sarah Mascorro MD HEMATOLOGY ORDERABLE S [facility] [place] [address] * (ABNORMAL) Hemogram (04/02/2018 3:13 AM EDT) WBC 8.6 4.0 - 9.5 x10(3)/[facility] RBC 4.10 4.00 - 5.21 x10(6)/[facility] Hemoglobin 11.9 11.7 - 15.5 gm/dL [facility] Hematocrit 35.6(L) 35.7 - 45.8 % [facility] MCV 86.8 82.6 - 94.4 fL [facility] MCH 29.0 27.1 - 32.0 pg [facility] MCHC 33.4 31.7 - 35.0 gm/dL [facility] Platelets 203 145 - 357 x10(3)/[facility] RDWSD 42.4 37.0 - 46.0 [facility] RDWCV 13.2 11.5 - 14.1 % [facility] MPV 9.4 7.6 - 12.9 [facility] nRBC % Auto 0.0 % [facility] nRBC Abs Auto 0.000 0.000 - 0.000 x10(3)/[facility] Blood specimen (specimen) 04/02/2018 3:13 AM EDT 04/02/2018 3:46 AM EDT Narrative Resulting Agency Comment Spec In Lab Sarah Mascorro MD HEMATOLOGY ORDERABLE S [facility] [place] [address] * (ABNORMAL) Basic Metabolic Panel (non-fasting) (04/02/2018 3:13 AM EDT) Glucose Lvl 157 65 - 199 mg/dL [facility] Comment:Diabetes: >=200 mg/d L plus symptoms BUN 15 8 - 18 mg/dL [facility] Creatinine 0.90 0.70 - 1.20 mg/dL [facility] Sodium 141 135 - 145 mmol/L [facility] Potassium 4.2 3.5 - 5.0 mmol/L [facility] Comment: Please note: ??Patients with WBC >100,000 may have falsely elevated Potassium levels. ??For accurate Potassium quantification in these patients send serum separator tube (gold top) for subsequent determinations. ??Contact the Clinical Chemistry Laboratory if there are any questions. Chloride 105 98 - 107 mmol/L [facility] CO2 21(L) 22 - 31 mmol/L [facility] Anion Gap 15 5 - 15 mmol/L [facility] Calcium 8.8 8.5 - 10.5 mg/dL [facility] Estimated GFR 65 >=60 mL/min/1. 73 m?? [facility] Comment: The eGFR was calculated using the CKD-EPI equation. As with all creatinine based estimates of kidney function, eGFR values calculated with the CKD-EPI equation are not accurate in patients with acute kidney failure, extremes of body mass or the acutely ill. [email or web address] eGFR 75 >=60 mL/min/1. 73 m?? [facility] Comment: The eGFR was calculated using the CKD-EPI equation. As with all creatinine based estimates of kidney function, eGFR values calculated with the CKD-EPI equation are not accurate in patients with acute kidney failure, extremes of body mass or the acutely ill. [email or web address] Blood specimen (specimen) 04/02/2018 3:13 AM EDT 04/02/2018 3:46 AM EDT Narrative Resulting Agency Comment Spec In Lab Noemi Hudson MD CHEMISTRY ORDERABLE S Performing Organization Address City/State/[facility] Co de Phone Number [facility] [place] [phone] * XR Pelvis (Generic) (04/01/2018 4:49 PM [...] supine radiograph of the pelvis from 04/01/2018 [id number] hours. COMPARISON: 03/28/2018. FINDINGS: Revision right hip arthroplasty hardware appears well-seated.No immediate postoperative complication such as periprosthetic fractureseen. Unchanged appearance of the bony pelvic ring and the post arthroplasty appearance of the left hip. IMPRESSION No immediate right hip revision arthroplasty complication identified. Noemi Hudson MD IMG DX ORDERABLES * Anaerobic Culture (04/01/2018 3:05 PM EDT) Anaerobic Culture No anaerobic organisms isolated [facility] Joint specimen (specimen) RIGHT HIP REGION STRUCTURE / Unknown 04/01/2018 3:05 PM EDT 04/01/2018 4:07 PM EDT Comment:RIGHT HIP CAPSULE. Narrative Resulting Agency Comment Spec In Lab Noemi Hudson MD MICROBIOLOGY - GENE RAL ORDERABLES Performing Organization Address [facility]/ZIP Co de Phone Number [facility] [place] [address] * Joint Culture (04/01/2018 3:05 PM EDT) Joint Culture No growth [facility] Gram Stain No Neutrophils seen. No microorganisms seen. [facility] Joint specimen (specimen) RIGHT HIP REGION STRUCTURE / Unknown 04/01/2018 3:05 PM EDT 04/01/2018 4:07 PM EDT Comment:RIGHT HIP CAPSULE. Narrative Resulting Agency Comment Spec In Lab Noemi Hudson MD MICROBIOLOGY - GENE RAL ORDERABLES Performing Organization Address City/[facility]/ZIP Co de Phone Number [facility] [place] [address] * Anaerobic Culture (04/01/2018 2:20 PM EDT) Anaerobic Culture No anaerobic organisms isolated [facility] Joint fluid specimen (specimen) RIGHT HIP REGION STRUCTURE / Unknown 04/01/2018 2:20 PM EDT 04/01/2018 2:48 PM EDT Comment:RIGHT HIP FLUID. Narrative Resulting Agency Comment Spec In Lab Noemi Hudson MD MICROBIOLOGY - GENE RAL ORDERABLES Performing Organization Address City/[facility]/ZIP Co de Phone Number [facility] [place] [address] * Joint Culture (04/01/2018 2:20 PM EDT) Joint Culture No growth at 14 days. [facility] Gram Stain Cytocentrifuge Gram Stain performed Neutrophils seen No microorganisms seen. [facility] Joint fluid specimen (specimen) RIGHT HIP REGION STRUCTURE / Unknown 04/01/2018 2:20 PM EDT 04/01/2018 2:48 PM EDT Comment:RIGHT HIP FLUID. Narrative Resulting Agency Comment Spec In Lab Noemi Hudson MD MICROBIOLOGY - GENE RAL ORDERABLES Performing Organization Address City/[facility]/ZIP Co de Phone Number [facility] [place] [address] * Cell Count Body Fluid Hip, Right (04/01/2018 2:20 PM EDT) Spec Type BF Hip, Right [facility] Color BF Brown [facility] Appearance BF Cloudy [facility] WBC BF Ct 787 /mcl [facility] Comment: Guideline listed below apply to [...] by Miryam Holm. Polymorph % 27 % [facility] Comment: Polymorphonuclear cell percent and absolute values may contain Neutrophils, Eosinophils, and Basophils. Body fluid smear will be scanned manually for concordance. Mononuc % 73 % [facility] Comment: Mononuclear cell percent and absolute values may contain Lymphocytes and Monocytes. Body fluid smear will be scanned manually for concordance. Polymorph BF ABS 209 /[facility] Comment: Polymorphonuclear cell percent and absolute values may contain Neutrophils, Eosinophils, and Basophils. Body fluid smear will be scanned manually for concordance. Mononuc ABS 578 /[facility] Comment: Mononuclear cell percent and absolute values may contain Lymphocytes and Monocytes. Body fluid smear will be scanned manually for concordance. Swab from hip region (specimen) 04/01/2018 2:20 PM EDT 04/01/2018 2:36 PM EDT Narrative Resulting Agency Comment Spec In Lab Noemi Hudson MD BODY FLUIDS AND STO OLS ORDERABLES [facility] [place] [address] documented in this encounter Visit Diagnoses Diagnosis [...] Unit) documented in this encounter Care Teams Director Of Billing Relationship Specialty Start Date End Date Baylee Elena, INFORMATION SYSTEMS TECHNICIAN PCP - General Family Medicine 03/25/18 03/01/22 documented as of this encounter
--- OUTSIDE RECORDS SUMMARY | 2024-01-29 01:17 | XMS_ITS | Encounter Summary ---
Author Organization [facility] Address [address] [facility] [place] [address] Care Team Providers Care Radiotelegraphist Name Role Phone Jamarcus Rodriguez MD Primary Care Provider [phone] Encounter Details Date Type Department Care Team (Late st Contact Info) Description 03/11/2014 9:37 AM EDT - 03/11/2014 11:59 PM EDT Hospital Encounter XRay at [address] [place] [id number] Pain in limb Social History Tobacco Use [...] fluticasone (FLOVENT HFA) 220 mcg/Actuation inhaler 09/02/2010 traMADol (ULTRAM) 50 mg tablet Take 1 [...] right dose. 35 tablet 0 02/06/2014 01/22/2015 lovastatin (MEVACOR) 40 mg tablet Take 80 mg by mouth nightly. 03/28/2018 cyanocobalamin 1,000 mcg tablet Take 1,000 mcg by mouth daily. 07/03/2018 documented as of this encounter Plan of Treatment Upcoming Encounters Date Type Department Care Team (Late st Contact Info) Description 02/26/2024 10:15 AM EDT Office Visit Endocrinology at [facility] [place] [address] Cornell Harper MD [facility] [place] [address] documented as of this encounter Procedures Procedure [...] limb documented in this encounter Care Teams Radiotelegraphist Relationship Specialty Start Date End Date Jamarcus Rodriguez MD [address] [place] [phone] PCP - General 06/07/10 03/24/18 documented as of this encounter
--- OUTSIDE RECORDS SUMMARY | 2024-01-29 01:17 | XMS_ITS | Encounter Summary ---
[place] [address] Care Team Providers Care Renewals Representative Name Role Phone Jamarcus Rodriguez MD Primary Care Provider [phone] Reason for Visit * Reason Comments Left Hip Pain 02/04/2014 L THR ant eriot Encounter Details Date Type Department Care Team (Late st Contact Info) Description 05/06/2014 9:00 AM EDT Office [place] [phone] Betty Dong APRN [facility] [place] [address] 02/04 Dr. Holland Left Anterior AMBER (Primary [...] this encounter Progress Notes * Betty Dong, TARIFF COMPILER - 05/06/2014 9:45 AM EDT Subjective: Chief Complaint: Second planned post op for left hip AMBER Pertinent Surgical History: Date: February 04, 2014 Surgeon: Lance Holland MD Recreational Director: Pre-operative diagnosis: Left hip osteoarthritis Surgical Procedure Performed: Injection left hip with 10 cc marcaine 0.25% with epi, into skin and subcutaneous tissues Left total hip arthroplasty, anterior Hueter approach with [place] table Left hip intraoperative radiologic examination Components Used: Depuy Corail stem, size 11, standard [place] cup, 50 mm, solid 32 mm ID, [...] She is getting ready to travel to [place] to care for her Parents. She is [...] Therapyfor post-operative rehabilitation and transition to a [facility] when she is ready. [...] Office Visit Endocrinology at [facility] [place] [address] Cornell Harper MD [facility] [place] [address] documented as of this encounter Visit Diagnoses Diagnosis 02/04 Dr. Holland Left Anterior AMBER- Primary Primary localized osteoarthrosis, pelvic region and thigh documented in this encounter Care Teams Renewals Representative Relationship Specialty Start Date End Date Jamarcus Rodriguez MD [address] [place] [address] PCP - General 06/07/10 03/24/18 documented as of this encounter
--- OUTSIDE RECORDS SUMMARY | 2024-01-29 01:17 | XMS_ITS | Encounter Summary ---
Author Organization [facility] [place] [address] Care Team Providers Care Quality Associate Name Role Phone Jamarcus Rodriguez MD Primary Care Provider [phone] Reason for Referral * Physical Therapy (Routine) - Complete - Patient Will Schedule External Appt Specialty Diagnoses / Procedures Referred By Calin t Referred To Contact Physical Therapy Diagnoses Primary osteoarthritis of left hip Status post hip replacement Betty Dogn [facility] [place] [address] Referral ID Status Reason Start Date Expiration Date Visits Requested Visits Authorized [id number] Complete - Patient Will Schedule External Appt Evaluate and Treat 03/11/2014 09/07/2014 12 12 Reason for Visit * Reason Comments Left Hip Pain Left total hip arthr oplasty, anterior Encounter Details Date Type Department Care Team (Late st Contact Info) Description 03/11/2014 10:30 AM EDT Office Visit [place] [address] Betty Dong [facility] [place] [address] Status post hip replacement (Primary Dx); 02/04 [...] this encounter Progress Notes * Betty Dong, CAPSULE MAKER - 03/11/2014 11:10 AM EDT Subjective: Chief Complaint: First global post op for left hip AMBER Pertinent Surgical History: Date: February 04, 2014 Surgeon: Lance Holland MD Military Pay Technician: Pre-operative diagnosis: Left hip osteoarthritis Surgical Procedure Performed: Injection left hip with 10 cc marcaine 0.25% with epi, into skin and subcutaneous tissues Left total hip arthroplasty, anterior Hueter approach with [place] table Left hip intraoperative radiologic examination Components Used: Depuy Corail stem, size 11, standard [place] cup, 50 mm, solid 32 mm ID, [...] of DVT seen on physical exam. Negative Acrson's sign. No cords or calf tenderness. No [...] [facility] [place] [address] Cornell Harper MD [facility] [place] [address] Scheduled Referrals Name Type Priority Associated Diagnoses [...] thigh documented in this encounter Care Teams Quality Associate Relationship Specialty Start Date End Date Jamarcus Rodriguez MD [address] [place] [address] PCP - General 06/07/10 03/24/18 documented as of this encounter
--- OUTSIDE RECORDS SUMMARY | 2024-01-29 01:18 | XMS_ITS | Encounter Summary ---
[place] [address] Care Team Providers Care Compliance Professional Name Role Phone Nirav Turner MD Primary Care Provider [phone] Encounter Details Date Type Department Care Team (Late st Contact Info) Description 02/04/2014 11:56 AM EDT - 02/04/2014 2:09 PM EDT Surgery [place] [phone] Steff Holland MD [address] [place] [id number] TOTAL HIP ARTHROPLASTY, ANTERIOR APPROACH (WRVU 19.6) [...] The INR should be reported to the [facility] Ortho clinic at [phone], and you will be informed of any [...] bowel movement. You can also take an jevs-pxi-edaocxg medication, miralax if needed to combat constipation. [...] 1. You will have followup appointments at [facility] as indicated in Future Appointment and Orders. Youwill have an xray prior to those appointments so please come to Radiology, desk 3T, 1 hour BEFORE your appointment for those x- rays. (plan to arive at 9:30 am for x-rays) Future Appointments Date Time Provider Department Center 03/11/2014 10:30 AM Betty Dong APRN [facility] If you have questions or concerns: [...] home with family. Discharge summary faxed to [facility]. LADONNA DAUGHERTY RN * Chad Heath PTA [...] Rehabilitation Department Chad Heath PTA Pager # [phone] * DanieldiegoWilfridHoliness Viviana - 02/06/2014 6:02 AM EDT ORTHOPAEDIC [...] on chronically, no bridging Pain control: d/c ZIPPER CUTTER, oral pain medications D/c levine, HLIV Discharge [...] s/p Left Anterior Approach AMBER Surgery: 02/04/2014 [id number] Procedure(s) (LRB): @TOTAL HIP ARTHROPLASTY, ANTERIOR APPROACH [...] 5:09 PM EDT 1700- Pt. Instructed about ZIPPER CUTTER. * Ashly Dong RN - 02/04/2014 3:54 [...] February 04, 2014 Surgeon: Steff Holland MD Commercial Fisher: Frandy Hooper MD Anesthesia: GET Pre-operative diagnosis: Left hip osteoarthritis Post-operative diagnosis: Same Surgical Procedure Performed: Injection left hip with 10 cc marcaine 0.25% with epi, into skin and subcutaneous tissues Left total hip arthroplasty, anterior Hueter approach with [place] table Left hip intraoperative radiologic examination Components Used: Depuy Corail stem, size 11, standard [place] cup, 50 mm, solid 32 mm ID, [...] wasperformed. Patient was positioned supine on the [place] table, both feet and ankles were padded [...] liner was placed and impacted according to monotype setter's instructions. Any impinging osteophytes were removed. The [...] and laterally. At the same time, the assistant associate full professor leaned against the thigh to optimize femoral [...] Implant Name Type Inv. Item Serial No. Point Of Sale Associate Lot No. LRB No. Used Action CUP,HIP,ACETB,GRPTN,100,50MM ([id number]) (AUTOREQ) - [id number] IMPLANTS CUP,HIP,ACETB,GRPTN,100,50MM ([id number]) (AUTOREQ) [id number] Left 1 Implanted INSER,ALTRX,NT,[id number] ([id number]) (AUTOREQ) - [id number] IMPLANTS INSER,ALTRX,NT,[id number] ([id number]) (AUTOREQ) [id number] Left 1 Implanted STEM,CRL2,STD,SZ11 ([id number]) (AUTOREQ) - [id number] IMPLANTS STEM,CRL2,STD,SZ11 ([id number]) (AUTOREQ) [id number] Left 1 Implanted BALL,ATC,BRN,+5MM,32MM ([id number]) (AUTOREQ) - [id number] IMPLANTS BALL,ATC,BRN,+5MM,32MM ([id number]) (AUTOREQ) [id number] Left 1 Implanted * OR Attestation - [...] Alyssa Burnham Patient Age: 68 y.o. Language: Argentine Race: White Ethnicity: Not nor Admit date: 02/04/2014 Discharge date and time: 02/06/2014 Attending Physician: Steff Holland MD Discharge Physician: Steff Holland MD Follow-up Recommendations for Providers: Please see patient discharge instructions for additional details. Inpatient Provider Contact Information: Steff Holland MD Joints: [phone] After hours and weekends, call [facility] Directory Assistance Operator, , and have Orthopedic resident paged. [...] an outside provider Mikael Salgado D.O. in [place] after she did experience increased left hip pain after shoveling 3 mm months. At that time, The aforementioned Orthopaedic provider did order a left hip MRI scan revealed a cam lesion moderate severe degenerative joint disease. She was advised to seek consultation for possible left hip arthroplasty. She does split her time between [place] and [place] to care for her aging parents essentially spending ~ 6 months in [place] and [place]. She describes her left hip pain as moderate to severe with difficulty putting her shoes and socks on. She does use a cane for assistance and mihu-jvu-pzaxdjn anti-inflammatories. She is just about to start [...] Rate: [67-92] Blood Pressure BP: 140/59 mmHg @cdvupub36@ Respiratory Rate Resp: 16 Resp: [16] SpO2 SpO2: 95 % @nbovgjhf82@ Art BP BP (Arterial Line): -- Functional [...] The INR should be reported to the [facility] Ortho clinic at [phone], and you will be informed of any [...] bowel movement. You can also take an uydx-yab-qbplrcb medication, miralax if needed to combat constipation. [...] 1. You will have followup appointments at [facility] as indicated in Future Appointment and Orders. [...] 03/11/2014 10:30 AM Betty Dong APRN Orthopaedics [phone] [facility] Joint Appt Questionnaire [facility] [phone] [facility] Future Orders Please Complete By Expires Referral for Anticoagulation Monitoring [EAY302 Custom] Process Instructions: If no progress note [...] Referral to Home Health - at DISCHARGE [LJP6401 CPT(R)] Process Instructions: Scheduling Instructions: Comments: DOCUMENTATION FOR VNA SERVICES Alyssa Hanna DallinofeliaRicardoObed Discharge to own home: [address] [facility] [phone] (home) Auto Parts Manager's Name: Self In discussion with the attending physician, it is certified that this patient is under their care and that they, or a nurse practitioner, clinical nurse specialist or physician's assistant associate full professor who is working directly with them, had [...] for services as follows: Home Health Agency: [facility] PHONE: [phone] FAX: [phone] Home care orders for Total Hip Replacements: [...] PT/INR results to be reported as follows: [facility] Orthopedic anticoagulation (Coumadin) clinic @ ; 2. [...] Questions: Responses: Agency name and contact information [place] [facility] Patient location post discharge Home What services are requested Registered Nurse Physical Therapy Start date 02/07/2014 Responsible MD post discharge contact info PCP/[facility] Orthopaedic Service Primary Care Provider: NIRAV TURNER MD [phone] * Plan of Care - Marcelina Liu [...] 4:45 PM EDT Office of Care Management/Clinical Fudge Candy Maker (CRC)/Initial Assessment CRC Todd Matthew RN (pager [phone]) Patient: Alyssa Zamarripaofelia-Obed : 1945 (68 y.o.) Home: [place] [address]* LOS: 1 day Care reviewed with Dr. [...] directives: Received ?? Insurance coverage: Medicare AB, [employer] ?? Admission status: 02/04/14 IPI Order to Admit is appropriate and waiting to be signed by an attending provider; notified Dr. Steff Holland via email. ?? Anticipated barriers to discharge: None ?? Financial concerns: None ?? Identified patient/family concerns r/t discharge: None ?? Debt Collection Specialist referral indicated: No ?? Baseline functional status/mobility: Independent ?? Current home/community services/equipment: Walker ?? Current functional status/mobility: Walker with stand by assist ?? Anticipated discharge date: Tuesday 02/06 ?? Anticipated discharge place: Home into care of friend ?? Home health agency: [facility] RN/PT orders pended. ?? Transportation at discharge: Friend ?? PCP: NIRAV TURNER MD, Future Appointments Date Time Provider Department Center 03/11/2014 10:30 AM Betty Dong APRN [facility] [address] [place] [address] CLIN Plan: Care Management will continue to monitor progress, follow for continuity of care, and assist with discharge planning. * Initial Assessments - Good Orozco, OT - 02/05/2014 1:08 PM EDT Occupational Therapy Evaluation [facility]: [facility] 68 y.[facility]. female patient of [...] APPROACH performed by Steff Holland MD at [facility] MAIN OR Social History: Patient lives alone, however girlfriend will be staying with her for a week. Home Setup: one level, walk in (3 inch step) shower DME: shower chair, higher toilet seat with arms, county health officer, walker, cane Baseline ADL/Mobility: Independent with ADLS [...] eval Total timed interventions: 0 minutes Pager: [phone] GOOD OROZCO OT 02/05/2014 Occupational Therapy Rehabilitation [...] APPROACH performed by Steff Holland MD at [facility] MAIN OR Social History: Patient is but has a friend to stay with her at d/c. 1 step x 3 to enter. Ind amb FINAL INSPECTION SUPERVISOR Precautions/Special Considerations: WBAT L L/E, standard hip [...] treatment: 0 minutes zakiya FIELDS, PT Pager: [phone] * Plan of Care - Sofia Mills [...] Brief Operative Note Patient Name: Alyssa BlandObed [facility]: [id number] MR#: [id number] Case Date: 02/04/2014 Surgeon: Surgeon(s) and Role: [...] Endocrinology at [facility] [place] [address] Cornell Harper [place] [address] Pending Results Name Type Priority Associated Diagnoses [...] MD HEMATOLOGY ORDERABLE S Performing Organization Address [facility] de Phone Number CERMITCHELL GREENWOODENNIUM * (ABNORMAL) Prothrombin Time (02/06/2014 3:35 AM EDT) PT 17.8(H) 12.5 - 15.5 sec CERNER MILLENNIUM Comment: [facility] Transfusion Committee Guidelines: INR less than 2.0, [...] MD HEMATOLOGY ORDERABLE S Performing Organization Address [facility] de Phone Number CERMITCHELL GREENWOODENNIUM * (ABNORMAL) Basic Metabolic Panel (non-fasting) (02/06/2014 3:35 AM EDT) Glucose Lvl 121 60 - 199 mg/dL CERNER MILLENNIUM Comment:Diabetes: >=200 mg/d L plus symptoms BUN 7(L) 8 - 18 mg/dL CERNER MILLENNIUM Creatinine 0.63(L) 0.70 - 1.20 mg/dL CERNER MILLENNIUM Comment: Please note that the pediatric reference intervals supplied above were not validated at [facility]. Results from pediatric patients should be interpreted [...] the following links into your internet browser. [email or web address] Blood specimen (specimen) 02/06/2014 3:35 AM EDT [...] MD HEMATOLOGY ORDERABLE S Performing Organization Address [facility] de Phone Number NOLA LAMBERTIUM * Prothrombin Time (02/05/2014 3:21 AM EDT) PT 14.6 12.5 - 15.5 sec [facility] MILLENNIUM Comment: [facility] Transfusion Committee Guidelines: INR less than 2.0, [...] MD HEMATOLOGY ORDERABLE S Performing Organization Address [facility] de Phone Number NOLA AGUILA * (ABNORMAL) Basic Metabolic Panel (non-fasting) (02/05/2014 3:21 AM EDT) Glucose Lvl 122 60 - 199 mg/dL [facility] MILLENNIUM Comment:Diabetes: >=200 mg/d L plus symptoms BUN 9 8 - 18 mg/dL [facility] MILLENNIUM Creatinine 0.69(L) 0.70 - 1.20 mg/dL [facility] MILL[facility] Comment: Please note that the pediatric reference intervals supplied above were not validated at [facility]. Results from pediatric patients should be interpreted in conjunction to the patient's age, height and muscle mass. Sodium 141 135 - 145 mmol/L [facility] MILLENNIUM Potassium 4.2 3.5 - 5.0 mmol/L [facility] MILLENNIUM Comment: Please note: ??Patients with WBC [...] the following links into your internet browser. [email or web address] Blood specimen (specimen) 02/05/2014 3:21 AM EDT 02/05/2014 3:40 AM EDT Narrative Resulting Agency Comment Spec In Lab Steff Holland MD CHEMISTRY ORDERABLES [facility] * Surgical Pathology Report (02/04/2014 1:10 PM EDT) Surgical Pathology Report ? [facility] ? Provider: ?? STFEF HOLLAND ? Pt. Name: ?? VADIM Ferrell, ALYSSA Hanna ? Acc #: ?[id number] ?Pt. ? Col Date: ?? 02/04/2014 ? [...] MD PATHOLOGY/CYTOLOGY Lenora KENNEDY Performing Organization Address [facility] de Phone Number NOLA AGUILA * Specimen to Pathology (surgical or derm) (02/04/2014 1:10 PM EDT) AP Specimen 02/04/2014 1:10 PM EDT 02/04/2014 1:10 PM EDT Narrative NOLA AYLA - 02/04/2014 1:10 PM EDT Specimen requisition ordered. ??Separate Pathology report to follow Authorizing Provider Result Van Holland MD PATHOLOGY/CYTOLOGY Lenora KENNEDY Performing Organization Address [facility] de Phone Number NOLA AGUILA [...] Ashly Dong RN - Comment: Done by [facility] Nurse.) sodium chloride 0.9 % flush 5 [...] 02/04/2014 02/05/2014 02/06/2014 HYDROmorphone (DILAUDID) 1 mg/mL ZIPPER CUTTER 30 mL (CANCELED) Intravenous, ZIPPER CUTTER ONLY, Starting on Sun02/04/14 at 1515, Until [...] Unit) documented in this encounter Care Teams Compliance Professional Relationship Specialty Start Date End Date Nirav Turner MD [address] [place] [address] PCP - General 06/07/10 03/24/18 documented as of this encounter
--- OUTSIDE RECORDS SUMMARY | 2024-01-29 01:18 | XMS_ITS | Encounter Summary ---
[place] [address] Care Team Providers Care Senior Clinical Data Analyst Name Role Phone Jamarcus Rodriguez MD Primary Care Provider [phone] Encounter Details Date Type Department Care Team (Late st Contact Info) Description 02/02/2014 11:00 AM EDT Clinical [place] [phone] Pain in limb Social History Tobacco Use [...] EDT Office Visit Endocrinology at [facility] [place] [address] Cornell Harper MD [facility] [place] [address] documented as of this encounter Procedures Procedure [...] (Bezet) 418 ms MUSE SYSTEM Calculated P [place] 56 degrees MUSE SYSTEM Calculated R [place] 41 degrees MUSE SYSTEM Calculated T [place] 42 degrees MUSE SYSTEM INTERPRETATION Normal sinus [...] limb documented in this encounter Care Teams Senior Clinical Data Analyst Relationship Specialty Start Date End Date Jamarcus Rodriguez MD [address] [place] [address] PCP - General 06/07/10 03/24/18 documented as of this encounter
--- OUTSIDE RECORDS SUMMARY | 2024-01-29 01:18 | XMS_ITS | Encounter Summary ---
Author Organization [facility] Address [address] [place] [address] Care Team Providers Care Radio Frequency Design Engineer Name Role Phone Unavailable Primary Care Provider Unavailabl e Encounter Details Date Type Department Care Team (Late st Contact Info) Description 11/03/2004 Results Only [facility] [address] [place] [address] Cyndi Lorenz MD Social History Tobacco Use [...] ? ALYSSA DUBOIS ? Accession #: ? [id number] : ? 1945 (Age: 59) ??F ?Collect Date: ? 11/03/2004 Location: ? [facility] ? Receive Date: ? 11/07/2004 Provider: ?CYNDI LORENZ MD Copy to: ? Leigha First ?[facility] ?[address] ?[place], [place] [address] ? Specimen/Source: ?ThinPrep Pap Test, Cervix/Endocervix Last [...] PATHOLOGY ORDER PATRICIA [facility] [address] [place] [address] documented in this encounter Visit Diagnoses Not on filedocumented in this encounter
--- OUTSIDE RECORDS SUMMARY | 2024-01-29 01:18 | XMS_ITS | Encounter Summary ---
Author Organization [facility] Address [address] [place] [address] Care Team Providers Care Project Estimator Name Role Phone Unavailable Primary Care Provider Unavailabl e Encounter Details Date Type Department Care Team (Late st Contact Info) Description 11/16/2006 Results Only [facility] [address] [place] [address] Alvin Jauregui MD Social History Tobacco Use [...] ? ALYSSA DUBOIS ? Accession #: ? [id number] : ? 1945 (Age: 61) ??F ?Collect [...] Jauregui MD PATHOLOGY ORDERABLES Performing Organization Address City/State/[facility] Co de Phone Number [facility] [address] [place] [address] documented in this encounter Visit Diagnoses Not on filedocumented in this encounter
--- OUTSIDE RECORDS SUMMARY | 2024-01-29 01:18 | XMS_ITS | Encounter Summary ---
Author Organization [facility] Address [facility] [place] [address] Care Team Providers Care Casino Slot Supervisor Name Role Phone Jamarcus Rodriguez MD Primary Care Provider [phone] Reason for Visit * Reason Comments Aftercare Of Tjr s/p right AMBER 11/21 Left Hip Pain Encounter Details Date Type Department Care Team (Late st Contact Info) Description 03/21/2012 2:55 PM EDT Office Visit [place] [phone] Nancy Acosta APRN [facility] [place] [address] Knee joint pain (Primary Dx); Status post [...] encounter Progress Notes * Stephen-Ki, Nancy Higginbotham, EXCELLENCE COACH - 03/21/2012 4:05 PM EDT DATE OF [...] The contralateral left hip appears to show paeu-fx-vydbgnsz joint space narrowing. I do not have [...] Office Visit Endocrinology at [facility] [place] [address] Cornell Harper [place] [facility] [address] documented as of this encounter Results * [...] leg documented in this encounter Care Teams Casino Slot Supervisor Relationship Specialty Start Date End Date Jamarcus Rodriguez MD [address] [place] [address] PCP - General 06/07/10 03/24/18 documented as of this encounter
--- OUTSIDE RECORDS SUMMARY | 2024-01-29 01:18 | XMS_ITS | Encounter Summary ---
Author Organization [facility] Address [address] [place] [address] Care Team Providers Care Skidder Loader Name Role Phone Unavailable Primary Care Provider Unavailabl e Encounter Details Date Type Department Care Team (Late st Contact Info) Description 10/09/2008 Before PRISM Converted Visit (Maple) [facility] Maple conversion [address] [place] [address] Charisma Hawkins, [address] [id number] Social History Tobacco Use Types Packs/Day Years [...] ? GIBERSONTETREAIMANI, ALYSSA ? Accession #: ? [id number] ? : ? 1945 (Age: 63) ??F ? Collect Date: ? 10/26/2008 ? Location: ? [facility] ? Receive Date: ? 10/27/2008 ? Provider: SUE B HARKIN PANEL MACHINE SETTER ? Copy to: NIRAV W WOOD MD [...] and is entirely submitted as (C). ??(Olinda Juarez)/[facility] ? End of Report ? [facility] 10/26/2008 10/27/2008 14: 30 EDT Sue Valderrama NP PATHOLOGY ORDERABLES Performing Organization Address City/State/[facility] Co de Phone Number [facility] [address] [place] [address] * HUMAN PAPILLOMA VIRUS DNA TEST (10/09/2008 14:52 EDT) Specimen Description Cervix, ThinPrep vial [facility] Result Negative for HPV types 16, 18, 31, 33, 35, 39, 45, 51, 52, 56, 58, 59, and 68. [facility] Report Status Final 10/20/2008 [facility] 10/09/2008 14:5 2 EDT 10/13/2008 14:52 EDT Charisma Hawkins CNM MICROBIOLOGY - G ENERAL ORDERABLES [facility] [address] [address] * CYTOPATHOLOGY (10/09/2008 0:00 EDT) Pathology Report: CYTOPATHOLOGY REPORT ? Reports generated via electronic interface contain original data; ? however they are lacking the format of the original report. ? Caution should be taken when reading/interpreti ng unformatted reports. ? Name: ? ALYSSA PEACE ? Accession #: ? [id number] ? : ? 1945 (Age: 63) ??F [...] reviewed and electronically signed by: ? Ashly Odon, [place](ASCP) ? Report Date: ??10/13/2008 09:50 ? End of Report ? [facility] 10/09/2008 10/12/2008 Charisma Hawkins CNM PATHOLOGY [facility] [address] [place] [address] documented in this encounter Visit Diagnoses Not on filedocumented in this encounter
--- OUTSIDE RECORDS SUMMARY | 2024-01-29 01:18 | XMS_ITS | Clinical Summary ---
Author Organization [facility] Address [address] [place] [address] Care Team Providers Care Terminal Clerk Name Role Phone Unknown, Provider Primary Care Provider [phone] Social History Tobacco Use Types Packs/Day Years [...] COVID-19 Vaccine (24 season) 2023 Care Teams Terminal Clerk Relationship Specialty Start Date End Date Unknown, Provider, PCP - General 05/20/15
--- OUTSIDE RECORDS SUMMARY | 2024-01-29 01:18 | XMS_ITS | Encounter Summary ---
Author Organization [facility] Address [facility] [place] [address] Care Team Providers Care Fruit Washer Name Role Phone Jamarcus Rodriguez MD Primary Care Provider [phone] Encounter Details Date Type Department Care Team (Late st Contact Info) Description 09/02/2010 3:20 PM EST Procedure visit [address] [address] Social History Tobacco Use Types Packs/Day Years [...] 10:15 AM EDT Office [place] [address] [address] Harper MD [facility] [place] [address] documented as of this encounter Visit Diagnoses Not on filedocumented in this encounter Care Teams Fruit Washer Relationship Specialty Start Date End Date Jamarcus Rodriguez MD [address] [place], [place] [id number] PCP - General 06/07/10 03/24/18 documented as of this encounter
--- OUTSIDE RECORDS SUMMARY | 2024-01-29 01:18 | XMS_ITS | Encounter Summary ---
Author Organization [facility] Address [facility] [facility] [address] Care Team Providers Care Access Tech Name Role Phone Jamarcus Rodriguez MD Primary Care Provider [phone] Encounter Details Date Type Department Care Team (Late st Contact Info) Description 01/08/2014 Orders [place] [address] Steff Shukla MD [address] [place] [address] [place] [address] Pain in limb; Debility Social History Tobacco [...] 10:15 AM EDT Office [place] [address] Cornell Harper MD [facility] [place] [address] Scheduled Orders Name Type Priority [...] STEFF SHUKLA ? ALYSSA Jacques ? MR#: [id number] ?LOC: ??3D ? /Sex: ??1945 (68 years), [...] (Bezet) 418 ms MUSE SYSTEM Calculated P [place] 56 degrees MUSE SYSTEM Calculated R [place] 41 degrees MUSE SYSTEM Calculated T [place] 42 degrees MUSE SYSTEM INTERPRETATION Normal sinus [...] MD HEMATOLOGY ORDERABLE S Performing Organization Address City[facility] Co de Phone Number NOLA AGUILA * High Sensitivity CRP (02/02/2014 11:17 AM EDT) CRP High Sens 2.8 mg/L [facility] Comment: Interpretations: 1) For accurate cardiac risk [...] Shukla MD CHEMISTRY ORDERABLES Performing Organization Address [facility] Co de Phone Number NOLA AGUILA * Albumin Level (02/02/2014 11:17 AM EDT) Albumin 4.5 3.2 - 5.2 gm/dL [facility] Blood specimen (specimen) 02/02/2014 11:17 AM EDT 02/02/2014 11:34 AM EDT Narrative Resulting Agency Comment Spec In Lab Authorizing Provider Result Van Shukla MD CHEMISTRY ORDERABLES Performing Organization Address [facility] de Phone Number [facility] * Protein, total (02/02/2014 11:17 AM EDT) Total Protein 7.4 6.4 - 8.3 gm/dL [facility] Blood specimen (specimen) 02/02/2014 11:17 AM EDT 02/02/2014 11:34 AM EDT Narrative Resulting Agency Comment Spec In Lab Authorizing Provider Result Van Shukla MD CHEMISTRY ORDERABLES Performing Organization Address [facility] Phone Number [facility] * Prothrombin Time (02/02/2014 11:17 AM EDT) PT 12.6 12.5 - 15.5 sec [facility] Comment: [facility] Transfusion Committee Guidelines: INR less than 2.0, PTT less than OR equal to 43.5 seconds, or Fibrinogen greater than or equal to 100 mg/dl indicate adequate procoagulant activity for hemostasis in patients without underlying bleeding disorders. INR 0.9 0.9 - 1.1 [facility] Blood specimen (specimen) 02/02/2014 11:17 AM EDT 02/02/2014 11:34 AM EDT Narrative Resulting Agency Comment Spec In Lab Authorizing Provider Result Van Shukla MD HEMATOLOGY ORDERABLE S Performing Organization Address [facility] de Phone Number [facility] * Basic Metabolic Panel (non-fasting) (02/02/2014 11:17 AM EDT) Glucose Lvl 102 60 - 199 mg/dL [facility] Comment:Diabetes: >=200 mg/d L plus symptoms BUN 14 8 - 18 mg/dL [facility] Creatinine 0.76 0.70 - 1.20 mg/dL [facility] Comment: Please note that the pediatric reference intervals supplied above were not validated at [facility]. Results from pediatric patients should be interpreted [...] the following links into your internet browser. [email or web address]/[email or web address] [email or web address] Blood specimen (specimen) 02/02/2014 11:17 AM EDT 02/02/2014 11:34 AM EDT Narrative Resulting Agency Comment Spec In Lab Steff Shukla MD CHEMISTRY ORDERABLES [facility] AG[facility] documented in this encounter Visit Diagnoses Diagnosis Pain in limb Debility Debility, unspecified Pain in limb Pain in limb documented in this encounter Care Teams Access Tech Relationship Specialty Start Date End Date Jamarcus Rodriguez MD [address] [place] [address] PCP - General 06/07/10 03/24/18 documented as of this encounter
--- OUTSIDE RECORDS SUMMARY | 2024-01-29 01:18 | XMS_ITS | Encounter Summary ---
Author Organization [facility] [place] [address] Care Team Providers Care Substation Supervisor Name Role Phone Carina Davis Primary Care Provider [phone] Encounter Details Date Type Department Care Team (Late st Contact Info) Description 12/02/2008 Orders [place] [phone] Moustapha Morales MD [facility] [place] [address] Social History Tobacco Use Types Packs/Day Years [...] AM EDT Office [place] [address] Cornell Harper MD [facility] [place] [address] documented as of this encounter Procedures Procedure Name Priority Date/Time Associated Diagnosis Comments SURGICAL PATHOLOGY REPORT Routine 12/02/2008 10:43 AM EDT documented in this encounter Results * Surgical Pathology Report (12/02/2008 10:43 AM EDT) Surgical Pathology Report [id number] ? Location: [facility]; [facility]8; A The signing pathologist has (i) examined [...] ?Smooth, red trabecular bone. ?? Articular surface: Harding, finely granular and pitted. ? Eburnation: ?Present [...] Moustapha Morales MD PATHOLOGY/CYTOLOGY O [facility] documented in this encounter Visit Diagnoses Not on filedocumented in this encounter Care Teams Substation Supervisor Relationship Specialty Start Date End Date Carina Davis PA [address] [place] [address] PCP - General Family Medicine 03/02/22 documented as of this encounter
--- OUTSIDE RECORDS SUMMARY | 2024-01-29 01:18 | XMS_ITS | Encounter Summary ---
Author Organization [facility] Address [place] [address] Care Team Providers Care Environmental Journalist Name Role Phone Jamarcus Rodriguez MD Primary Care Provider [phone] Encounter Details Date Type Department Care Team (Late st Contact Info) Description 02/04/2014 12:23 PM EDT Anesthesia [place] [phone] Alexandra Stone MD [facility] [place] [address] Anesthesia Record Procedure Summary Procedure Name Responsible Anesthesiologist Anesthesia Start Time Anesthesia Stop Time TOTAL HIP ARTHROPLASTY, ANTERIOR APPROACH (WRVU 19.6) (Left: Hip) Alexandra Stone MD 02/04/14 1223 02/04/14 1421 Events Date Time Event Comment 02/04/2014 1208 1223 Start 1227 AN Verify 1227 An Start Data 1239 Anesthesia Ready 1255 Break/Relief In Josias Arturo Breen x, [employer] 1414 an stop data 1421 Stop Meds [...] cephalic vein left (lateral side of arm); odoj-sic-urkyzv catheter system; 20 gauge, 1 in length; [...] Shankar RN 02/05/14 0600 by Lindsey Estrada, SHIPWRIGHT APPRENTICE Incision 02/04/14; 1303; hip; 04/01/18; 1525 02/04/14 [...] consented to blood products. Plan discussed with [employer] and attending. Misc. Assessment: documented in this encounter Plan of Treatment Upcoming Encounters Date Type Department Care Team (Late st Contact Info) Description 02/26/2024 10:15 AM EDT Office Visit [place] [address] Cornell Harper MD [facility] [place] [address] documented as of this encounter Procedures Procedure [...] Supervising Attending/Fellow: Chase ~~~~~~~~~~~~~~~~~~~~~~~~~~~~~~~~~~~~~~~~~~~~~~~~~~~~~~~~~~~~ Alexandra Stone MD SOLAR MANAGER [facility] documented in this encounter Visit Diagnoses [...] mg documented in this encounter Care Teams Environmental Journalist Relationship Specialty Start Date End Date Jamarcus Rodriguez MD [address] [place] [address] PCP - General 06/07/10 03/24/18 documented as of this encounter
--- OUTSIDE RECORDS SUMMARY | 2024-01-29 01:18 | XMS_ITS | Encounter Summary ---
Author Organization [facility] Address [address] [place] [address] Care Team Providers Care Training Intern Name Role Phone Unavailable Primary Care Provider Unavailabl e Encounter Details Date Type Department Care Team (Latest Contact Info) Description 10/26/2008 16:54 EDT Hospital Encounter [facility] - Other [address] [place] [address] Lilia Valderrama, SUPERINTENDENT AUTOMOTIVE [address] [place] [address] Discharge Disposition: Home or Self Care Social [...]
--- OUTSIDE RECORDS SUMMARY | 2024-01-29 01:18 | XMS_ITS | Encounter Summary ---
Author Organization [facility] [place] [address] Care Team Providers Care Boring Mill Set Up Operator Vertical Name Role Phone Jamarcus Rodriguez MD Primary Care Provider [phone] Reason for Visit * Reason Comments Other Encounter Details Date Type Department Care Team (Late Contact Info) Description 01/13/2014 [place] [address] Lance Holland MD [address] [place] [address] Social History Tobacco Use Types Packs/Day Years [...] Visit Endocrinology at [facility] [place] [address] Cornell Harper MD [facility] [place] [address] documented as of this encounter Visit Diagnoses Not on filedocumented in this encounter Care Teams Boring Mill Set Up Operator Vertical Relationship Specialty Start Date End Date Jamarcus Rodriguez MD [address] [place] [address] PCP - General 06/07/10 03/24/18 documented as of this encounter
--- OUTSIDE RECORDS SUMMARY | 2024-01-29 01:18 | XMS_ITS | Encounter Summary ---
Author Organization [facility] Address [facility] [place] [address] Care Team Providers Care Park Police Name Role Phone Jamarcus Rodriguez MD Primary Care Provider [phone] Encounter Details Date Type Department Care Team (Late st Contact Info) Description 12/25/2013 Orders [place] [address] Lance Holland MD [address] [place] [address] Status post right hip replacement (Primary Dx); [...] 10:15 AM EDT Office [place] [address] Cornell Harper MD [facility] [place] [address] documented as of this encounter Visit Diagnoses Diagnosis Status post right hip replacement- Primary Hip joint replacement by other means Pain in left hip Pain in joint, pelvic region and thigh documented in this encounter Care Teams Park Police Relationship Specialty Start Date End Date Jamarcus Rodriguez MD [address] [place] [address] PCP - General 06/07/10 03/24/18 documented as of this encounter
--- OUTSIDE RECORDS SUMMARY | 2024-01-29 01:18 | XMS_ITS | Referral Summary ---
Author Organization [facility] Address [address] [place] [address] Care Team Providers Care Trading Floor Operator Name Role Phone Unknown, Provider Primary Care Provider [phone] Social History Tobacco Use Types Packs/Day Years Used Date Smoking Tobacco: Never Assessed Sex and Gender Information Value Date Recorded Sex Assigned at Not on file Gender Identity Not on file Sexual Orientation Not on file Plan of Treatment Not on file Care Teams Trading Floor Operator Relationship Specialty Start Date End Date Unknown, Provider, PCP - General 05/20/15
--- OUTSIDE RECORDS SUMMARY | 2024-01-29 01:18 | XMS_ITS | Encounter Summary ---
Author Organization [facility] [place] [address] Care Team Providers Care Ophthalmic Medical Technologist Name Role Phone Jamarcus Rodriguez MD Primary Care Provider [phone] Encounter Details Date Type Department Care Team (Late st Contact Info) Description 03/20/2012 Orders [place] [address] Nancy Acosta APRN [facility] [place] [address] Left hip pain (Primary Dx) Social History [...] 10:15 AM EDT Office [place] [address] Cornell Harper MD [facility] [place] [address] documented as of this encounter Visit Diagnoses Diagnosis Left hip pain- Primary Pain in joint, pelvic region and thigh documented in this encounter Care Teams Ophthalmic Medical Technologist Relationship Specialty Start Date End Date Jamarcus Rodriguez MD [address] [place] [address] PCP - General 06/07/10 03/24/18 documented as of this encounter
--- OUTSIDE RECORDS SUMMARY | 2024-01-29 01:18 | XMS_ITS | Encounter Summary ---
Author Organization [facility] [place] [address] Care Team Providers Care Maple Products Supervisor Name Role Phone Jamarcus Rodriguez MD Primary Care Provider [phone] Reason for Visit * Reason Comments Left Hip Pain Aftercare Of Tjr s/p left svetlana bravo Encounter Details Date Type Department Care Team (Latest Contact Info) Description 12/29/2013 12:10 PM EDT Office [place] [address] Lance Holland MD [address] [place] [address] Primary osteoarthritis of left hip (Primary Dx); [...] this encounter Progress Notes * Betty Dong, PRODUCT SAFETY TEST ENGINEER - 12/29/2013 12:58 PM EDT Chief Complaint: 1. Rotary appointment for right hip SVETLANA. 2. Left hip pain. PERTINENT SURGICAL HISTORY: On 12/02/2008, right total hip arthroplasty by Dr. Cifuentes. SURGERY DATE: 12/02/2008 SHINE CIFUENTES MD (508) Right total hip arthroplasty. Preoperative Diagnosis: Right hip osteoarthritis. Postoperative Diagnosis: Right hip osteoarthritis. Implants: All are from the De[employer]uy Total Hip System: 1. Karnack 300 series acetabular cup, 50 mm. 2. +4 lateral Cavalier polyethylene liner. 3. A 32+0 ceramic head. [...] an outside provider Mikael Salgado D.O. in [place] after she did experience increased left hip pain after shoveling 3 mm months. At that time, The aforementioned Orthopaedic provider did order a left hip MRI scan revealed a camlesion moderate severe degenerative joint disease. She was advised to seek consultation for possible left hip arthroplasty. She does split her time between [place] and [place] to care for her aging parents essentially spending ~ 6 months in [place] and [place]. She describes her left hip pain as moderate to severe with difficulty putting her shoes and socks on. She does use a cane for assistance and meci-rkh-qnkqzxs anti-inflammatories. She is just about to start [...] ??? 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 History Substance Use Topics ??? Smoking status: [...] There is an OPEN MRI scan from [place] November 2013 that reveals moderate to severe [...] Visit Endocrinology at [facility] [place] [address] Cornell Harper MD [facility] [place] [address] documented as of this encounter Visit Diagnoses Diagnosis Primary osteoarthritis of left hip- Primary Primary localized osteoarthrosis, pelvic region and thigh History of total hip replacement Hip joint replacement by other means documented in this encounter Care Teams Maple Products Supervisor Relationship Specialty Start Date End Date Jamarcus Rodriguez MD [address] [place] [address] PCP - General 06/07/10 03/24/18 documented as of this encounter
--- OUTSIDE RECORDS SUMMARY | 2024-01-29 01:18 | XMS_ITS | Encounter Summary ---
Author Organization [facility] Address [address] [place] [address] Care Team Providers Care Lift Mechanic Name Role Phone Unavailable Primary Care Provider Unavailabl e Encounter Details Date Type Department Care Team (Late st Contact Info) Description 05/21/2003 Results Only [facility] - Map conversion [address] [place] [address] Cyndi Lorenz MD Social History Tobacco Use [...] ? ALYSSA DUBOIS ? Accession #: ? [id number] : ? 1945 (Age: 57) ??F ?Collect Date: ? 05/21/2003 Location: ? [facility] ? Receive Date: ? 05/25/2003 Provider: ?CYNDI LORENZ MD Copy to: ? [facility] ?[address] ?[place] [address] ? Specimen/Source: ?ThinPrep Pap Test, Source Not [...] MD PATHOLOGY ORDER PATRICIA SHASHANK MARINA [address] [place] [address] documented in this encounter Visit Diagnoses Not on filedocumented in this encounter
--- OUTSIDE RECORDS SUMMARY | 2024-01-29 01:18 | XMS_ITS | Encounter Summary ---
Author Organization [facility] Address [facility] [place] [address] Care Team Providers Care Bait Packer Name Role Phone Jamarcus Rodriguez MD Primary Care Provider [phone] Encounter Details Date Type Department Care Team (Late st Contact Info) Description 03/21/2012 2:14 PM EDT - 03/21/2012 3:59 PM EDT Hospital Encounter [facility]Ray at [facility] [address] [facility] [place] [phone] Left hip pain Social History Tobacco Use [...] Endocrinology at [facility] [place] [address] Cornell Harper MD [facility] [place] [address] documented as of this encounter Procedures Procedure [...] thigh documented in this encounter Care Teams Bait Packer Relationship Specialty Start Date End Date Jamarcus Rodriguez MD [address] [place] [address] PCP - General 06/07/10 03/24/18 documented as of this encounter
--- OUTSIDE RECORDS SUMMARY | 2024-01-29 01:18 | XMS_ITS | Encounter Summary ---
Author Organization [facility] Address [facility] [place] [address] Care Team Providers Care Change Management Expert Name Role Phone Jamarcus Rodriguez MD Primary Care Provider [phone] Encounter Details Date Type Department Care Team (Latest Contact Info) Description 12/29/2013 11:22 AM EDT - 12/29/2013 11:59 PM EDT Hospital Encounter [facility] at [facility] [place] [phone] Pain in left hip Social History Tobacco [...] fluticasone (FLOVENT HFA) 220 mcg/Actuation inhaler 09/02/2010 lovastatin (MEVACOR) 40 mg tablet Take 80 mg by mouth nightly. 02/02/2014 cyanocobalamin 1,000 mcg tablet Take 1,000 mcg by mouth daily. 07/03/2018 acetaminophen (TYLENOL) 650 mg CR tablet Take [...] Visit Endocrinology at [facility] [place] [address] Cornell Harper MD [facility] [place] [address] documented as of this encounter Procedures Procedure [...] further lossof left hip joint space. Lance Holland MD IMG DX ORDERABLES documented in this encounter Visit Diagnoses Diagnosis Pain in left hip Pain in joint, pelvic region and thigh documented in this encounter Care Teams Change Management Expert Relationship Specialty Start Date End Date Jamarcus Rodriguez MD [address] [place] [address] PCP - General 06/07/10 03/24/18 documented as of this encounter
--- OUTSIDE RECORDS SUMMARY | 2024-01-29 01:18 | XMS_ITS | Encounter Summary ---
Author Organization [facility] Address [address] [place] [address] Care Team Providers Care Four Slide Machine Operator Name Role Phone Unavailable Primary Care Provider Unavailabl e Encounter Details Date Type Department Care Team (Late st Contact Info) Description 03/01/2001 Results Only [facility] - Maple conversion [address] [place] [address] Cyndi Lorenz MD Social History Tobacco Use [...] ? ALYSSA DUBOIS ? Accession #: ? [id number] : ? 1945 (Age: 55) ??F ?Collect Date: ? 03/01/2001 Location: ? [facility] ? Receive Date: ? 03/06/2001 Provider: ?CYNDI LORENZ MD Copy to: ? [facility] ? [facility] ? [address] ? [place] [address] ? Specimen/Source: ?ThinPrep Pap Test, Source Not [...] MD PATHOLOGY ORDER PATRICIA SHASHANK MARINA [address] [place] [address] documented in this encounter Visit Diagnoses Not on filedocumented in this encounter
--- OUTSIDE RECORDS SUMMARY | 2024-01-29 01:18 | XMS_ITS | Encounter Summary ---
Author Organization [facility] Address [facility] Ad[facility] [place] [address] Care Team Providers Care Accounting Clerks Supervisor Name Role Phone Jamarcus Rodriguez MD Primary Care Provider [phone] Encounter Details Date Type Department Care Team (Late st Contact Info) Description 09/02/2010 4:20 PM EST [place] [address] Moustapha Morales MD [facility] [place] [address] Discharge Disposition: Home Social History Tobacco Use [...] 10:15 AM EDT Office [place] [address] Cornell Harper MD [facility] [place] [address] documented as of this encounter Visit Diagnoses Not on filedocumented in this encounter Care Teams Accounting Clerks Supervisor Relationship Specialty Start Date End Date Jamarcus Rodriguez MD [address] [place] [address] PCP - General 06/07/10 03/24/18 documented as of this encounter
--- OUTSIDE RECORDS SUMMARY | 2024-01-29 01:18 | XMS_ITS | Encounter Summary ---
Author Organization [facility] Address [facility] Adol[place] [address] Care Team Providers Care Shark Biologist Name Role Phone Jamarcus Rodriguez MD Primary Care Provider [phone] Encounter Details Date Type Department Care Team (Late st Contact Info) Description 01/13/2014 Orders [place] [address] Lance Holland MD [address] [place] [address] [place] [address] OA (osteoarthritis) (Primary Dx) Social History Tobacco [...] 10:15 AM EDT Office [place] [address] Cornell Harper MD [facility] [place] [address] documented as of this encounter Visit Diagnoses Diagnosis OA (osteoarthritis)- Primary Osteoarthrosis, unspecified whether generalized or localized, unspecified site documented in this encounter Care Teams Shark Biologist Relationship Specialty Start Date End Date Jamarcus Rodriguez MD [address] [place] [address] PCP - General 06/07/10 03/24/18 documented as of this encounter
--- OUTSIDE RECORDS SUMMARY | 2024-01-29 01:18 | XMS_ITS | Encounter Summary ---
Author Organization [facility] Address [facility] [place] [address] Care Team Providers Care Supervisor Industrial Arts Education Name Role Phone Jamarcus Rodriguez MD Primary Care Provider [phone] Encounter Details Date Type Department Care Team (Latest Contact Info) Description 03/21/2012 4:00 PM EDT - 03/21/2012 11:59 PM EDT Hospital Encounter XRay at [address] [place] [address] CLINIC, Moustapha Lynne MD [facility] [place] [address] Knee joint pain Discharge Disposition: Home Social [...] Endocrinology at [facility] [place] [address] Cornell Harper MD [facility] [place] [address] documented as of this encounter Procedures Procedure [...] distal left femur may represent a phlebolith. oMustapha Morales MD IMG DX ORDERABLES documented in this encounter Visit Diagnoses Diagnosis Knee joint pain Pain in joint, lower leg documented in this encounter Care Teams Supervisor Industrial Arts Education Relationship Specialty Start Date End Date Jamarcus Rodriguez MD [address] [place] [address] PCP - General 06/07/10 03/24/18 documented as of this encounter
--- OUTSIDE RECORDS SUMMARY | 2024-01-29 01:18 | XMS_ITS | Encounter Summary ---
Author Organization [facility] [place] [address] Care Team Providers Care Baggage And Mail Agent Name Role Phone Jamarcus Rodriguez MD Primary Care Provider [phone] Reason for Visit * Reason Comments Left Hip Pain Encounter Details Date Type Department Care Team (Late st Contact Info) Description 02/02/2014 2:30 PM EDT Office [place] [address] Steff Shukla MD [address] [place] [address] Pain in limb; Debility; DJD (degenerative joint [...] 10:15 AM EDT Office Visit Endocrinology at [facility] [place] [address] Cornell Harper [place] [facility] [place] [address] documented as of this encounter Procedures Procedure Name Priority Date/Time Associated Diagnosis Comments URINE CULTURE Routine 02/02/2014 2:07 PM EDT Debility HEMOGRAM Routine 02/02/2014 11:17 AM EDT Pain in limb DIFFERENTIAL, AUTOMATED Routine 02/02/2014 11:17 AM EDT Pain in limb TYPE AND SCREEN, SDP (FUTURE SURGERY, [facility] SAME DAY PROGRAM ONLY) Routine 02/02/2014 11:17 [...] STEFF SHUKLA ? ALYSSA Hanna ? MR#: [id number] ?LOC: ??3D ? /Sex: ??1945 (68 years), [...] - GENER AL ORDERABLES Performing Organization Address City/[facility] de Phone Number [facility]A LAMBERTI[facility] * Antibody screen (02/02/2014 11:17 AM EDT) Ab Screen Interp Negative [facility]A LAMBERT[facility] Expires at [id number] on: [id number] [facility] Blood specimen (specimen) 02/02/2014 11:17 AM EDT 02/02/2014 11:38 AM EDT Narrative Resulting Agency Comment Spec In Lab Steff Shukla MD BLOOD BANK LAB ORDER PATRICIA Performing Organization Address City/[facility] de Phone Number CERMITCHELL LAMBERTIUM * ABO/Rh Typing (02/02/2014 11:17 AM EDT) ABORH Type A Pos CERMITCHELL LAMBERTIUM Blood specimen (specimen) 02/02/2014 11:17 AM EDT 02/02/2014 11:38 AM EDT Narrative Resulting Agency Comment Spec In Lab Steff Shukla MD BLOOD BANK LAB ORDER PATRICIA Performing Organization Address City/[facility] de Phone Number CERMITCHELL LAMBERTIUM * [...] MCHC 33.6 32.0 - 36.5 gm/dL [facility] Platelets 200 145 - 370 x10(3)/mcL CERNER MILLENNIUM RDWSD 44.4 35.0 - 46.0 fL [facility] RDWCV 14.2 10.9 - 14.4 % [facility] MPV 9.8 9.0 - 12.0 fL [facility] MILL[facility]UM Blood specimen (specimen) 02/02/2014 11:17 AM EDT 02/02/2014 11:34 AM EDT Narrative Resulting Agency Comment Spec In Lab Steff Shukla MD HEMATOLOGY ORDERABLE S Performing Organization Address [facility] de Phone Number [facility] * Sedimentation rate (02/02/2014 11:17 AM EDT) Sed Rate 11 0 - 20 mm/hr [facility] Blood specimen (specimen) 02/02/2014 11:17 AM EDT 02/02/2014 11:34 AM EDT Narrative Resulting Agency Comment Spec In Lab Steff Shukla MD HEMATOLOGY ORDERABLE S Performing Organization Address [facility] de Phone Number [facility] * High Sensitivity CRP (02/02/2014 11:17 AM EDT) CRP High Sens 2.8 mg/L [facility] MILLENNIUM Comment: Interpretations: 1) For accurate cardiac [...] Shukla MD CHEMISTRY ORDERABLES Performing Organization Address [facility] Phone Number [facility] * Albumin Level (02/02/2014 11:17 AM EDT) Albumin 4.5 3.2 - 5.2 gm/dL [facility] Blood specimen (specimen) 02/02/2014 11:17 AM EDT 02/02/2014 11:34 AM EDT Narrative Resulting Agency Comment Spec In Lab Steff Shukla MD CHEMISTRY ORDERABLES Performing Organization Address [facility] Phone Number [facility] * Protein, total (02/02/2014 11:17 AM EDT) Pathologist [facility] Total Protein 7.4 6.4 - 8.3 gm/dL [facility] Blood specimen (specimen) 02/02/2014 11:17 AM EDT 02/02/2014 11:34 AM EDT Narrative Resulting Agency Comment Spec In Lab Steff Shukla MD CHEMISTRY ORDERABLES Performing Organization Address [facility] Phone Number [facility] * Prothrombin Time (02/02/2014 11:17 AM EDT) PT 12.6 12.5 - 15.5 sec [facility] Comment: [facility] Transfusion Committee Guidelines: INR less than [...] intervals supplied above were not validated at [facility]. Results from pediatric patients should be interpreted [...] the following links into your internet browser. [email or web address] Blood specimen (specimen) 02/02/2014 11:17 AM EDT 02/02/2014 11:34 AM EDT Narrative Resulting Agency Comment Spec In Lab Steff Shukla MD CHEMISTRY ORDERABLES [facility] documented in this encounter Visit Diagnoses Diagnosis Pain in limb Debility Debility, unspecified DJD (degenerative joint disease) of hip Osteoarthrosis, unspecified whether generalized or localized, pelvic region and thigh documented in this encounter Care Teams Baggage And Mail Agent Relationship Specialty Start Date End Date Jamarcus Rodriguez MD [address] [place] [address] PCP - General 06/07/10 03/24/18 documented as of this encounter
--- OUTSIDE RECORDS SUMMARY | 2024-01-29 01:18 | XMS_ITS | Encounter Summary ---
Author Organization [facility] Address [facility] [place] [address] Care Team Providers Care Brand Protection Manager Name Role Phone Jamarcus Rodriguez MD Primary Care Provider [phone] Encounter Details Date Type Department Care Team (Late st Contact Info) Description 02/02/2014 11:40 AM EDT - 02/02/2014 11:59 PM EDT Hospital Encounter XRay at [address] [place] [phone] Pain in limb Social History Tobacco Use [...] farther apart. 90 tablet 0 02/06/2014 02/06/2014 polyethylene glycol (MIRALAX) 17 gram packet Take [...] 10:15 AM EDT Office Visit Endocrinology at [facility] [place] [address] Cornell Harper MD [facility] [place] [address] documented as of this encounter Procedures Procedure [...] limb documented in this encounter Care Teams Brand Protection Manager Relationship Specialty Start Date End Date Jamarcus Rodriguez MD [address] [place] [address] PCP - General 06/07/10 03/24/18 documented as of this encounter
--- OUTSIDE RECORDS SUMMARY | 2024-01-29 01:18 | XMS_ITS | Encounter Summary ---
Author Organization [facility] Address [address] [place] [address] Care Team Providers Care Electro Mechanical Technician Name Role Phone Unavailable Primary Care Provider Unavailabl e Encounter Details Date Type Department Care Team (Late st Contact Info) Description 05/19/2002 Results Only [facility] conversion [address] [place] [address] Cyndi Lorenz MD Social History Tobacco Use [...] ? ALYSSA DUBOIS ? Accession #: ? [id number] : ? 1945 (Age: 56) ??F ?Collect Date: ? 05/19/2002 Location: ? [facility] ? Receive Date: ? 05/22/2002 Provider: ?CYNDI LORENZ MD Copy to: ? [facility] ?[address] ?[place] [address] ? Specimen/Source: ?ThinPrep Pap Test, Cervix/Endocervix Last [...] MD PATHOLOGY ORDER PATRICIA SHASHANK MARINA [address] [place] [address] documented in this encounter Visit Diagnoses Not on filedocumented in this encounter
--- OUTSIDE RECORDS SUMMARY | 2024-01-29 01:18 | XMS_ITS | Encounter Summary ---
Author Organization [facility] Address [facility] [place] [address] Care Team Providers Care Machine Stoppage Frequency Checker Name Role Phone Jamarcus Rodriguez MD Primary Care Provider [phone] Encounter Details Date Type Department Care Team (Late st Contact Info) Description 02/02/2014 8:30 AM EDT [place] [address] Social History Tobacco Use Types Packs/Day Years [...] 10:15 AM EDT Office [place] [address] Cornell Harper MD [facility] [place] [address] documented as of this encounter Visit Diagnoses Not on filedocumented in this encounter Care Teams Machine Stoppage Frequency Checker Relationship Specialty Start Date End Date Jamarcus Rodriguez MD [address] [place] [address] PCP - General 06/07/10 03/24/18 documented as of this encounter
--- OUTSIDE RECORDS SUMMARY | 2024-01-29 01:18 | XMS_ITS | Encounter Summary ---
Author Organization [facility] Address [address] [place] [address] Care Team Providers Care Java Security Engineer Name Role Phone Unavailable Primary Care Provider Unavailabl e Encounter Details Date Type Department Care Team (Late st Contact Info) Description 01/02/2012 Results Only [facility] ([facility]) [address] [place], [place] [address] Charisma Hawkins, [address] [phone] Social History Tobacco Use Types Packs/Day Years [...] ? ALYSSA BOYLE ? Accession #: ? [id number] ? : ? 1945 (Age: 66) ??F [...] types 16,18,31,33,35, 39,45,51,52,56,58, 59,66, and 68 by food service clerk mediated amplification. Comments Document reviewed and electronically [...] CNM PATHOLOGY ORDERA BLES Performing Organization Address City/State/[facility] Co de Phone Number [facility] [address] [place] [address] documented in this encounter Visit Diagnoses Not on filedocumented in this encounter
--- NOTE | 2024-01-29 13:52 | DI.US_ITS ---
APPROVED REPORT EXAM: Comprehensive 2D, Doppler, and color-flow Echocardiogram Patient Location: Out-Patient Plastic Surgery Manager: Rose Sykes RDCS (AE) Indications: Preoperative Cardiovascular examination Other Information Study Quality: Adequate. Technically limited study due to body habitus, , inability to position patie nt exam done supine. Limited imaginig parasternal .. Conclusion Normal left ventricular systolic function. EF is 65%. No segmental wall motion abnormalities are no ruben Normal right ventricular size and function Both atria are normal in size Aortic valve is sclerotic without stenosis or regurgitation There is no additional significant valvular disease Estimated right ventricular systolic pressure is 26 mmHg Wall motion Left Ventricle Technically limited parasternal imaging. Ventricle was not able to be measured by 2D calculations. Th e overall left ventricular systolic function appears normal. Regional wall motion is not well visuali zed but grossly normal. There is no ventricular septal defect visualized. LVEF is 65%. Right Ventricle Right ventricle is grossly normal in size. Right ventricular systolic function is grossly normal. Atria The left atrium size is normal. The right atrium size is normal. The interatrial septum is intact wit h no evidence for an atrial septal defect. Aortic Valve The Aortic valve is sclerotic. Aortic valve is trileaflet. There is no aortic valvular stenosis. No aortic regurgitation is present. Mitral Valve The mitral valve is normal in structure. No evidence of mitral valve stenosis. Trace mitral regurgita tion. Tricuspid Valve The tricuspid valve is normal in structure. There is no tricuspid valve stenosis. Trace tricuspid reg urgitation. The RVSP is 25.7_ mmHg. Pulmonic Valve The pulmonary valve is normal in structure. There is no pulmonic valvular stenosis. Trace pulmonic re gurgitation. Great Vessels The aortic root is normal in size. The ascending aorta is normal in size. Aortic arch is not well vis ualized. IVC is normal in size and collapses >50% with inspiration. Pericardium There is no pericardial effusion. 2D Dimensions Ao Root d 2.43 cm F: 2.7 - 3.3 Ao Asc Diam d 2.54 cm F: 2.3 - 3.1 M-Mode TAPSE 2.48 cm (M/F) >1.7 Auto EF LV EDV A4C 80.6 mL LV EDV A2C 78.2 mL LV EDV BP 80.7 mL LV ESV A4C 27.4 mL LV ESV A2C 27.7 mL LV ESV BP 27.8 mL LVEF(%) A4C 66.1 % LVEF(%) A2C 64.6 % LVEF(%) BP 65.5 % LV SV A4C 53.3 ml LV SV A2C 50.5 ml LV SV BP 52.9 ml LV CO A4C 3.5 L/min LV CO A2C 3.1 L/min LV CO BP 3.3 L/min HR A4C 65.94 BPM HR A2C 61.86 BPM LV EDV Index (BP) LA Volume LA Length A4C 4.7 cm LA Length A2C 5.2 cm LA Area A4C s 13.06 cm2 LA Area A2C s 17.24 cm2 LA Vol A4C A-L 30.57 mL LA Vol A2C A-L 48.62 mL LA Vol Biplane A-L 40.3 mL LA Vol/BSA A4C A-L LA Vol/BSA A2C A-L LA Vol/BSA BP A-L 22.4 mL/m2 LA Vol A4C MOD 28.8 mL LA Vol A2C MOD 45.4 mL LA Vol BP MOD 37.8 mL RA Volume RA Area A4C 8.7 cm2 RA ESV A4C (A-L) 16.0mL RA Vol/BSA A4C A-L RA Length A4C 4.0 cm RA ESV A4C (MOD) 15.7mL LV Diastology MV E' medial 0.098 (>0.07 m/s) MV E Vmax 0.87 (0.4-1.3 m/s) MV E/E' MED 8.91 (<14) MV A Vmax 0.85 (0.4-1.3 m/s) MV E' lateral 0.128 (>0.1 m/s) E/A Ratio 1.0 MV E/E' LAT 6.80 (<14) MV E' Average 0.113 m/s MV E/E'(average) 7.71 Aortic Valve AoV Vmax 1.87 m/s LVOT Vmax 1.16 m/s AoV Peak Grad 14.0 mmHg LVOT Peak Grad 5.4 mmHg AoV Area (Vmax) 1.60 cm2 LVOT VTI 0.275 m AoV VTI 0.422 m LVOT Mean Grad 2.9 mmHg AoV Mean Frederick. 1.21 m/s LVOT SV 71.25 mL AoV Mean Grad 6.8 mmHg LVOT Diam s 1.80 cm AoV Area (VTI) 1.69 cm2 Velocity Ratio 0.62 Mitral Valve MV DT 168 (160-240 msec) MV Vmax TIPS 0.85 m/s MV Mean Grad 1.2 (<2mmHg) MV VTI 0.315 m Pulmonary Valve PV Vmax 1.05 (0.5-1.5 m/s) RVOT Vmax 0.69 m/s PV Peak Grad 4.4 mmHg RVOT Peak Gr. 1.9 mmHg PV Mean Frederick 0.72 m/s RVOT VTI 0.159 m PV Mean Grad 2.4 mmHg RVOT Mean Gr. 1.1 mmHg Tricuspid Valve RA Pressure 3.00 mmHg TR Vmax 2.38 m/s TV S' 0.18 m/s TR Peak Grad 22.7 mmHg RVSP (TR) 25.7 mmHg
== END ==
PROVIDERS: PCP Physician Assistant; Visit Provider Physician Assistant
DX: Z01.810 Encounter for preprocedural cardiovascular examination (principal)
CPT/HCPCS: 93306

== ENCOUNTER 2024-01-29 04:31 | Outpatient (CLI) | payer MEDICARE, SELFPAY ==
--- OUTSIDE RECORDS SUMMARY | 2024-01-29 04:53 | XMS_ITS | Encounter Summary ---
Author Organization [facility] Address [facility] [place] [address] Care Team Providers Care Power System Dispatcher Name Role Phone Ulices Baylee Mayorga APRN Primary Care Provider Reason for Visit * Reason Comments Follow Up Surgery right AMBER REV Encounter Details Date Type Department Care Team (Late st Contact Info) Description 07/18/2018 1:00 PM EST Office [place] [address] Noemi Hudson MD [facility] DR ORTHOPAEDIC [place] [address] Pain of right lower extremity Social History [...] Visit Endocrinology at [facility] [place] [address] Cornell Harper MD [facility] [place] [address] documented as of this encounter Visit Diagnoses Diagnosis Pain of right lower extremity documented in this encounter Care Teams Power System Dispatcher Relationship Specialty Start Date End Date Baylee Elena APRN PCP - General Family Medicine 03/25/18 03/01/22 documented as of this encounter
--- OUTSIDE RECORDS SUMMARY | 2024-01-29 04:53 | XMS_ITS | Encounter Summary ---
Author Organization [facility] [place] [address] Care Team Providers Care Cloth Layer Name Role Phone Carina Davis Primary Care Provider [phone] Encounter Details Date Type Department Care Team (Late st Contact Info) Description 11/22/2022 11:25 AM EDT Office [place] [address] Cesar Pineda, [facility] [address] Thyroid nodule; Hypothyroidism, unspecified type; Vitamin D [...] documented in this encounter Progress Notes * Csear Pineda, - 11/22/2022 11:25 AM EDT Images [...] Office Visit from 07/18/2018 in Orthopaedics at [facility] Office Visit from 07/03/2018 in Orthopaedics at [facility] Weight 75.8 kg (167 lb) [as of [...] Dr. Harper. Cesar Pineda DO Endocrinology Fellow [facility] * Cornell Harper MD - 11/22/2022 11:25 [...] Visit Endocrinology at [facility] [place] [address] Cornell Harper MD [facility] [place] [address] documented as of this encounter Procedures Procedure Name Priority Date/Time Associated Diagnosis Comments NON-RAILROAD WORKER FINAL REPORT Routine 11/22/2022 11:12 AM EDT CYTOPATHOLOGY NON-GYNECOLOGICAL Routine 11/22/2022 11:12 AM EDT Thyroid nodule documented in this encounter Results * Non-Independent Beauty Consultant Final Report (11/22/2022 11:12 AM EDT) Non-Independent Beauty Consultant Final Report [id number] ? Location: The signing pathologist has (i) examined the relevant preparation(s) for the specimen(s) and (ii) rendered or confirmed the diagnosis(es). . ? Non-Independent Beauty Consultant Final DIAGNOSIS Nondiagnostic Electronically signed by: ?Kwaku YIP, Patricia Verified: ??11/23/2022 15:21 ??Pathologist Performed at: ??-[facility] Dept. of Pathology, [place] [address] Bilingual Recruiter: Irene Jimenez MD, AP, ??CLIA Certificate: [id number] DISCUSSION Thyroid, right (FNA): Nondiagnostic/Uns atisfactory (see [...] sample was received for potential molecular testing. [facility] 11/22/2022 11:1 2 AM EDT Cesar Pineda DO PATHOLOGY/CYTOLOGY ORDERABLES Performing Organization Address City/[facility]/[place] [address] * Cytopathology Non-Gynecological (11/22/2022 11:12 AM EDT) AP Specimen 11/22/2022 11:1 2 AM EDT 11/22/2022 11:12 AM EDT Narrative [facility] - 11/22/2022 11:12 AM EDT Specimen requisition ordered. ??Separate Pathology report to follow Cornell Harper MD PATHOLOGY/CYTOLOGY ORDERABLES Performing Organization Address [facility] [place] [address] documented in this encounter Visit Diagnoses Diagnosis Thyroid nodule Nontoxic uninodular goiter Hypothyroidism, unspecified type Vitamin D deficiency Unspecified vitamin D deficiency documented in this encounter Care Teams Cloth Layer Relationship Specialty Start Date End Date Carina Davis PA [address] [place] [address] PCP - General Family Medicine 03/02/22 documented as of this encounter
--- OUTSIDE RECORDS SUMMARY | 2024-01-29 04:53 | XMS_ITS | Encounter Summary ---
Author Organization [facility] [place] [address] Care Team Providers Care Ophthalmic Assistant Name Role Phone Carina Davis Primary Care Provider [phone] Reason for Visit * Reason Onset Date Comments Medication Refill 01/01/2023 Encounter Details Date Type Department Care Team (Late st Contact Info) Description 01/01/2023 [place] [address] Leanne Larsen RN Social History Tobacco Use [...] 10:15 AM EDT Office [place] [address] Cornell Harper MD [facility] [place] [address] documented as of this encounter Visit Diagnoses Not on filedocumented in this encounter Care Teams Ophthalmic Assistant Relationship Specialty Start Date End Date Carina Davis PA [address] [place] [address] PCP - General Family Medicine 03/02/22 documented as of this encounter
--- OUTSIDE RECORDS SUMMARY | 2024-01-29 04:53 | XMS_ITS | Encounter Summary ---
Author Organization [facility] [place] [place] [address] Care Team Providers Care Admin Asst Name Role Phone Carina Davis Primary Care Provider [phone] Encounter Details Date Type Department Care Team (Late st Contact Info) Description 11/20/2022 10:30 AM EDT Office Visit [place] [address] Cesar Pineda, [facility] [place] [address] High serum thyroid stimulating hormone (TSH); Hypothyroidism, [...] Office Visit from 07/18/2018 in Orthopaedics at [facility] Office Visit from 07/03/2018 in Orthopaedics at [facility] Weight 75.8 kg (167 lb) [as of [...] Studies: ENDOCRINOLOGY THYROID ULTRASOUND REPORT Patient:Alyssa Burnham, [id number] Date of exam: 11/21/2022 Indication: thyroid nodule [...] nodule. Replete vitamin D. Sheila Montiel MD Aircraft Instrument Engineerpanel flow machine operator Endocrinology Section [facility] documented in this encounter Plan of Treatment Upcoming Encounters Date Type Department Care Team (Late st Contact Info) Description 02/26/2024 10:15 AM EDT Office Visit Endocrinology at [facility] [place] [address] Cornell Harper MD [facility] [place] [address] documented as of this encounter Procedures Procedure [...] Vitamin D, 25-Hydroxy (11/20/2022 11:40 AM EDT) [facility] 25-OH Vit D Total 14(L) 21 - 100 ng/mL [facility] 25-OH Vit D Interp Deficient [facility] Blood Venous Draw / Unknown 11/20/2022 11:40 AM EDT 11/20/2022 11:53 AM EDT Narrative Resulting Agency Comment Spec In Lab Cesar Pineda DO CHEMISTRY ORDERABLE S Performing Organization Address [facility]/ZIP Co de Phone Number [facility] [place] [place] [address] * (ABNORMAL) T4, free (11/20/2022 11:40 AM EDT) [facility] Free T4 0.78(L) 0.93 - 1.70 ng/dL [facility] Comment: Reference Interval (ng/dL): Females: ??First Trimester: 0.97-1.68 ??Second Trimester: 0.77-1.51 ??Third Trimester: 0.77-1.49 Blood 11/20/2022 11:4 0 AM EDT 11/20/2022 11:53 AM EDT Narrative Resulting Agency Comment Spec In Lab Cesar Pineda DO CHEMISTRY ORDERABLE S Performing Organization Address City/[facility]/ZIP Co de Phone Number [facility] [place] [address] * (ABNORMAL) TSH [place] (11/20/2022 11:40 AM EDT) TSH 4.57(H) 0.27 - 4.20 mcIU/mL [facility] Comment: Reference Interval (mcIU/mL): Females: ??First Trimester: 0.23-3.88 ??Second Trimester: 0.22-3.90 ??Third Trimester: 0.44-4.66 Blood 11/20/2022 11:4 0 AM EDT 11/20/2022 11:52 AM EDT Narrative Resulting Agency Comment Spec In Lab Milagros Jaramillo MD CHEMISTRY ORDERAB LES [facility] [place] [address] * Thyroid Stimulating Immunoglobulins (11/20/2022 11:40 AM EDT) TSI <0.10 <=0.55 IU/L [facility] Blood 11/20/2022 11:4 0 AM EDT 11/20/2022 12:32 PM EDT Narrative Resulting Agency Comment Spec In Lab Sheila Montiel MD IMMUNOLOGY ORDERABLE S Performing Organization Address City/[facility]/ZIP Co de Phone Number [facility] [place] [address] * Thyroid peroxidase antibody (11/20/2022 11:40 AM EDT) Thyroperox Ab <10 <=34 IU/mL [facility] Blood 11/20/2022 11:4 0 AM EDT 11/20/2022 12:32 PM EDT Narrative Resulting Agency Comment Spec In Lab Sheila Montiel MD IMMUNOLOGY ORDERABLE S [facility] [place] [address] * T3 Total (11/20/2022 11:40 AM EDT) T3, Total 89 80 - 200 ng/dL [facility] Blood 11/20/2022 11:4 0 AM EDT 11/20/2022 11:52 AM EDT Narrative Resulting Agency Comment Spec In Lab Sheila Montiel MD CHEMISTRY ORDERABLES [facility] [place] [place] [address] documented in this encounter Visit Diagnoses Diagnosis High serum thyroid stimulating hormone (TSH) Hypothyroidism, unspecified type Thyroid nodule Nontoxic uninodular goiter Vitamin D deficiency Unspecified vitamin D deficiency documented in this encounter Care Teams Admin Asst Relationship Specialty Start Date End Date Carina Davis PA [address] [address] PCP - General Family Medicine 03/02/22 documented as of this encounter
--- OUTSIDE RECORDS SUMMARY | 2024-01-29 04:53 | XMS_ITS | Encounter Summary ---
[place] [address] Care Team Providers Care Portable Feed Mill Operator Name Role Phone Carina Davis Primary Care Provider Encounter Details Date Type Department Care Team (Late st Contact Info) Description 11/28/2022 Telephone [place] [address] Leanne Larsen RN Social History Tobacco Use [...] 10:15 AM EDT Office [place] [address] Cornell Harper MD [facility] [address] documented as of this encounter Visit Diagnoses Not on filedocumented in this encounter Care Teams Portable Feed Mill Operator Relationship Specialty Start Date End Date Carina Davis PA [address] [place] [address] PCP - General Family Medicine 03/02/22 documented as of this encounter
--- OUTSIDE RECORDS SUMMARY | 2024-01-29 04:53 | XMS_ITS | Clinical Summary ---
Author Organization [facility] Address [facility] [place] [address] Care Team Providers Care Textile Designs Sales Representative Name Role Phone Carina Davis Primary Care Provider [phone] Allergies Active Allergy Reactions Criticality Noted Date [...] PM EDT Ancillary Procedure [place] [phone] Carina Davis PA from Last 3 Months [...] 10:15 AM EDT Office Visit Endocrinology at [facility] [place] [place] [address] Cornell Harper [place] [address] Health Maintenance Due Date Last Done Comments Hepatitis C Screening 1965 Tdap adult 1966 Tetanus vaccine 1966 Zoster vaccine (1 of 2) 1997 Bone Density Scan 2012 Pneumoccocal Vaccine: 65+ (2 of 2 - PCV) 2012 08/16/2008 Covid-19 Vaccine ( - 2022- season) 2023 Influenza (Flu) vaccine (1 o f 1 - Influenza standard series) 03/16/2024 04/15/2008 Medical Devices Implanted Type Area Cargo Tank Mechanic Device Identifier Shelf Expiration Date Model / Serial / Lot Cup,Hip,Acetb, Grptn,100,50mm ([id number]) (Autoreq) - [id number] Implanted:Qty: 1 on 02/04/2014 by Lance Holland MD at [facility] Left: Hip 10/14/2023 0 / / [id number] Inser,Altrx,Nt ,06q56qt ([id number]) (Autoreq) - [id number] Implanted:Qty: 1 on 02/04/2014 by Lance Holland MD at [facility] Left: Hip 10/13/2018 0 / / [id number] Stem,Crl2,Std, Sz11 ([id number]) (Autoreq) - [id number] Implanted:Qty: 1 on 02/04/2014 by Lance Holland MD at [facility] Left: Hip 06/14/2018 [id number] / / [id number] Ball,Atc,Brn,+ 5mm,32mm ([id number]) ([employer]oreq) - [id number] Implanted:Qty: 1 on 02/04/2014 by Lance Holland MD at [facility] Left: Hip 10/13/2018 0 / / [id number] Inser,Altrx,10 d,+4,[id number] ([id number]) ([employer]oreq) - [id number] Implanted:Qty: 1 on 04/01/2018 by Noemi Hudson MD at [facility] Right: Hip [employer] ANDREW HEMANTH 03/16/2019 0 / / [id number] Head,Fem,S-Rom ,Aluma,32+0 ([id number]) - [id number] Implanted:Qty: 1 on 04/01/2018 by Noemi Hudson MD at [facility] Right: Hip [employer] [facility] - ANDREW HEMANTH 03/16/2019 [id number] / / [id number] Procedures Procedure Name Priority Date/Time Associated Diagnosis [...] FILM LIBRARY ORD ERABLES DH REBECCA [place] * Scan Doc: Diagnostic Radiology (01/16/2024 12:00 AM EDT) Only the most recent of2 resultswithin the time period is included. Anatomical Region Laterality Modality Other Narrative 01/16/2024 12:00 AM EDT Ordered by an unspecified provider. Scanning Provider MEDIA MGR SCAN EXT O RDR/RSLT from Last 3 Months Advance Directives Documents on File Type Date Recorded Patient Radiotelephone Operator Expl anation Advance Directives and Livin g Will 09/14/2010 10:08 AM * Full Code (Latest Code Status on File) Date Activated Date Inactivated Comments 04/01/2018 4:21 PM 04/02/2018 7:42 PM Question Answer Comments Does patient have capacity to make decision: Yes * Full Code Date Activated Date Inactivated Comments 02/04/2014 2:49 PM 02/06/2014 4:27 PM Care Teams Textile Designs Sales Representative Relationship Specialty Start Date End Date Carina Davis PA [address] [place] [address] PCP - General Family Medicine 03/02/22
--- OUTSIDE RECORDS SUMMARY | 2024-01-29 04:53 | XMS_ITS | Encounter Summary ---
Author Organization [facility] [place] [address] Care Team Providers Care Emt B Name Role Phone SamBaylee peterson Mukesh JORDAN Primary Care Provider [phone] Encounter Details Date Type Department Care Team (Late st Contact Info) Description 07/05/2018 4:05 PM EST Ancillary Procedure [place] [phone] Noemi Hudson MD [facility] [place] [address] Social History Tobacco Use Types Packs/Day Years [...] 10:15 AM EDT Office [place] [address] [facility] [place] [address] documented as of this encounter Procedures Procedure [...] FILM LIBRARY OR DERABLES Performing Organization Address City/State/[facility] Co de Phone Number [place], [place] documented in this encounter Visit Diagnoses Not on filedocumented in this encounter Care Teams Emt B Relationship Specialty Start Date End Date Baylee Elena, INJECTION MOLDING ENGINEER PCP - General Family Medicine 03/25/18 03/01/22 documented as of this encounter
--- OUTSIDE RECORDS SUMMARY | 2024-01-29 04:53 | XMS_ITS | Encounter Summary ---
Author Organization [facility] Address [facility] [place] [address] Care Team Providers Care Carpenter General Name Role Phone Carina Davis Primary Care Provider [phone] Encounter Details Date Type Department Care Team [...] 10:15 AM EDT Office Visit Endocrinology at [facility] [place] [address] Cornell Harper MD [facility] [place] [address] documented as of this encounter Visit Diagnoses Not on filedocumented in this encounter Care Teams Carpenter General Relationship Specialty Start Date End Date Carina Davis PA [address] [place] [address] PCP - General Family Medicine 03/02/22 documented as of this encounter
--- OUTSIDE RECORDS SUMMARY | 2024-01-29 04:53 | XMS_ITS | Encounter Summary ---
Author Organization [facility] [place] [address] Care Team Providers Care Heart Coordinator Name Role Phone Ulices Baylee Mayorga APRN Primary Care Provider [phone] Encounter Details Date Type Department Care Team (Late st Contact Info) Description 03/30/2020 [place] [phone] Roberto Carlos Anguiano MD [facility] [address] Social History Tobacco Use Types Packs/Day Years [...] improve she may need to see neuro platform power technician. She said she has blurred vision still [...] if insists on DL, can inquire at [facility] to see him there. * Telephone Encounter - Meche Chavez - 03/30/2020 11:32 AM EDT Patient saw Dr. Anguiano in [place] back in August and had f/u originally [...] 10:15 AM EDT Office Visit Endocrinology at [facility] [place] [address] Cornell Harper MD [facility] [place] [address] documented as of this encounter Visit Diagnoses Not on filedocumented in this encounter Care Teams Heart Coordinator Relationship Specialty Start Date End Date Baylee Elena APRN PCP - General Family Medicine 03/25/18 03/01/22 documented as of this encounter
--- OUTSIDE RECORDS SUMMARY | 2024-01-29 04:53 | XMS_ITS | Encounter Summary ---
Author Organization [facility] [place] [address] Care Team Providers Care Silver Recovery Operator Name Role Phone Carina Davis Primary Care Provider [phone] Reason for Visit * Consultation (Routine) - Closed Specialty Diagnoses / Procedures Referred By Calin vasquez Referred To Contact Endocrinology Diagnoses Thyroid nodule Carina Davis PA [address] [place] [address] [facility] [address] [place] [address] Referral ID Status Reason Start Date Expiration Date V isits Requested Visits Authorized [id number] Closed Consult, Test & Treat PCP Updated and/or Approved 03/02/2022 03/02/2023 6 6 Encounter Details Date Type Department Care Team (Late st Contact Info) Description 05/26/2022 10:00 AM EST Office Visit [place] [address] Cesar Pineda, [facility] [place] [address] Thyroid nodule Social History Tobacco [...] her TSH in March 2022 measured at [facility] was 2.18. Past Medical History: Diagnosis Date [...] 30.28) performed by Noemi Hudson MD at [facility] ??? PRO TOTAL HIP ARTHROPLASTY 02/04/2014 @TOTAL HIP ARTHROPLASTY, ANTERIOR APPROACH performed by Lance Holland MD at [facility] MAIN OR Social History Socioeconomic History ??? [...] Office Visit from 07/18/2018 in Orthopaedics at [facility] Office Visit from 07/03/2018 in Orthopaedics at [facility] Weight 75.8 kg (167 lb) [as [...] Data: TSH in March 2022 measured at [facility] was 2.18. Assessment / Plan: 76yo woman presents for evaluation of an incidentally discovered thyroid nodule. This was recently measured up to 1.7cm at [facility] but is 1.5cm today. It is a [...] included. ENDOCRINOLOGY THYROID ULTRASOUND REPORT Patient:Alyssa Burnham, [id number] Date of exam: 05/26/2022 Indication: Thyroid nodule Comparison: US 02/21/22 (report only) Performed by: Milagros Crump DO, MD Real time images of the thyroid gland were obtained using a [employer] US machine. All measurements are given as [...] Office Visit Endocrinology at [facility] [place] [address] Cornell Harper MD [facility] [place] [address] documented as of this encounter Results * (ABNORMAL) TSH [place] (11/20/2022 11:40 AM EDT) TSH 4.57(H) 0.27 - 4.20 mcIU/mL [facility] Comment: Reference Interval (mcIU/mL): Females: ??First Trimester: 0.23-3.88 ??Second Trimester: 0.22-3.90 ??Third Trimester: 0.44-4.66 Blood 11/20/2022 11:4 0 AM EDT 11/20/2022 11:52 AM EDT Narrative Resulting Agency Comment Spec In Lab Milagros Jaramillo MD CHEMISTRY ORDERAB LES Performing Organization Address City/State/[facility] Co de Phone Number [facility] [place] [address] documented in this encounter Visit Diagnoses Diagnosis Thyroid nodule Nontoxic uninodular goiter documented in this encounter Care Teams Silver Recovery Operator Relationship Specialty Start Date End Date Carina Davis PA [address] [place] [address] PCP - General Family Medicine 03/02/22 documented as of this encounter
--- OUTSIDE RECORDS SUMMARY | 2024-01-29 04:53 | XMS_ITS | Encounter Summary ---
Author Organization [facility] [place] [address] Care Team Providers Care Chief Talent Officer Name Role Phone SamBaylee peterson Mukesh JORDAN Primary Care Provider [phone] Encounter Details Date Type Department Care Team (Late st Contact Info) Description 07/05/2018 4:15 PM EST Ancillary Procedure [place] [address] Noemi Hudson MD [facility] [place] [address] Social History Tobacco Use Types Packs/Day Years [...] 10:15 AM EDT [place] [address] Cornell Harper MD [facility] [place] [address] documented as of this encounter Procedures Procedure [...] FILM LIBRARY OR DERABLES Performing Organization Address City/State/[facility] Co de Phone Number [employer], [place] documented in this encounter Visit Diagnoses Not on filedocumented in this encounter Care Teams Chief Talent Officer Relationship Specialty Start Date End Date Baylee Elena, SENIOR DB2 SYSTEMS PROGRAMMER PCP - General Family Medicine 03/25/18 03/01/22 documented as of this encounter
--- OUTSIDE RECORDS SUMMARY | 2024-01-29 04:53 | XMS_ITS | Encounter Summary ---
Author Organization [facility] [place] [address] Care Team Providers Care Mail Handler Sorter Name Role Phone Baylee Elena APRN Primary Care Provider [phone] Reason for Visit * Reason Onset Date Comments Physical Therapy 05/01/2018 Encounter Details Date Type Department Care Team (Late st Contact Info) Description 05/01/2018 Telephone [place] [address] Noemi Hudson MD [facility] [place] [address] Physical Therapy Social History Tobacco Use Types [...] - 05/01/2018 3:30 PM EDT Mariana from [facility] in [place], [place] called requesting a PT referral and op note from Dr. Hudson's AMBER revision on Alyssa. This was faxed over via Epic this afternoon. documented in this encounter Plan of Treatment Upcoming Encounters Date Type Department Care Team (Late st Contact Info) Description 02/26/2024 10:15 AM EDT Office Visit Endocrinology at [facility] [place] [address] Cornell Harper [place] [address] documented as of this encounter Visit Diagnoses Not on filedocumented in this encounter Care Teams Mail Handler Sorter Relationship Specialty Start Date End Date Baylee Elena APRN PCP - General Family Medicine 03/25/18 03/01/22 documented as of this encounter
--- OUTSIDE RECORDS SUMMARY | 2024-01-29 04:53 | XMS_ITS | Encounter Summary ---
[place] [address] Care Team Providers Care Wrapper Rewinder Name Role Phone Carina Davis Primary Care Provider Encounter Details Date Type Department Care Team (Late st Contact Info) Description 11/27/2022 Telephone [place] [address] Leanne Larsen RN Social History Tobacco Use [...] Visit Endocrinology at [facility] [place] [address] Cornell Harper MD [facility] [place] [address] documented as of this encounter Visit Diagnoses Not on filedocumented in this encounter Care Teams Wrapper Rewinder Relationship Specialty Start Date End Date Carina Davis PA [address] [place] [address] PCP - General Family Medicine 03/02/22 documented as of this encounter
--- OUTSIDE RECORDS SUMMARY | 2024-01-29 04:53 | XMS_ITS | Encounter Summary ---
Author [place] [address] Care Team Providers Care Chemical Strength Tester Name Role Phone Carina Davis Primary Care Provider [phone] Encounter Details Date Type Department Care Team (Late st Contact Info) Description 12/28/2022 Tele[place] [address] Cesar Pineda, [facility] [place] [address] Social History Tobacco Use Types Packs/Day Years [...] 10:15 AM EDT Office [place] [address] Cornell Harper MD [facility] [address] documented as of this encounter Visit Diagnoses Not on filedocumented in this encounter Care Teams Chemical Strength Tester Relationship Specialty Start Date End Date Carina Davis PA [address] [place] [address] PCP - General Family Medicine 03/02/22 documented as of this encounter
--- OUTSIDE RECORDS SUMMARY | 2024-01-29 04:53 | XMS_ITS | Encounter Summary ---
Author Organization [facility] Address [facility] [place] [address] Care Team Providers Care Nursing Assoc Name Role Phone Ulices Baylee Mayorga APRN Primary Care Provider [phone] Reason for Visit * Reason Comments Follow Up Surgery R AMBER Rev 04/01/18 Encounter Details Date Type Department Care Team (Late st Contact Info) Description 07/03/2018 11:30 AM EST Office [place] [address] Noemi Hudson MD [facility] [place] [address] History of bilateral hip replacements Social History [...] progressis noted in terms of pain and religion of function. QUESTIONNAIRE RESPONSES: General Health, Prior [...] 10:15 AM EDT Office Visit Endocrinology at [facility] [place] [address] Cornell Harper MD [facility] [place] [address] documented as of this encounter Visit Diagnoses Diagnosis History of bilateral hip replacements Hip joint replacement by other means documented in this encounter Care Teams Nursing Assoc Relationship Specialty Start Date End Date Baylee Elena APRN PCP - General Family Medicine 03/25/18 03/01/22 documented as of this encounter
--- OUTSIDE RECORDS SUMMARY | 2024-01-29 04:53 | XMS_ITS | Encounter Summary ---
[place] [address] Care Team Providers Care Digital Account Supervisor Name Role Phone Carina Davis Primary Care Provider [phone] Encounter Details Date Type Department Care Team (Late st Contact Info) Description 12/28/2022 Telephone [place] [address] Cesar Pineda DO [facility] [place] [address] Social History Tobacco Use Types Packs/Day Years [...] Endocrinology at [facility] [place] [address] Cornell Harper MD [facility] [place] [address] documented as of this encounter Visit Diagnoses Not on filedocumented in this encounter Care Teams Digital Account Supervisor Relationship Specialty Start Date End Date Carina Davis PA [address] [place] [address] PCP - General Family Medicine 03/02/22 documented as of this encounter
--- OUTSIDE RECORDS SUMMARY | 2024-01-29 04:53 | XMS_ITS | Encounter Summary ---
Author Organization [facility] [place] [address] Care Team Providers Care Tourist Camp Attendant Name Role Phone Carina Davis Primary Care Provider [phone] Encounter Details Date Type Department Care Team (Late st Contact Info) Description 01/10/2023 9:30 AM EDT Office Visit Endocrinology at [facility] [place] [address] Vin Craig MD [facility] [address] [place] [address] Cesar Pineda DO [facility] [place] [address] Thyroid nodule; Vitamin D deficiency Social History [...] Office Visit from 01/10/2023 in Endocrinology at [facility] Office Visit from 07/18/2018 in Orthopaedics at [facility] Weight 80.8 kg (178 lb 3.2 oz) [...] Studies: ENDOCRINOLOGY THYROID ULTRASOUND REPORT Patient:Alyssa Burnham, [id number] Date of exam: 01/11/2023 Indication: thyroid nodule Comparison: Clinic US 11/20/22 Performed by: Cesar Pineda DO, Vin Craig MD Real time images of the thyroid gland were obtained using a [employer] US machine. All measurements are given as [...] and coordination of care Vin Craig MD Casertelephone messenger Endocrinology Section [facility] documented in this encounter Miscellaneous Notes * Addendum Note - Vin Craig MD - 01/10/2023 9:30 AM EDTAddended by: VIN CRAIG on: 01/11/2023 01:22 PM Modules accepted: Level of Service documented in this encounter Plan of Treatment Upcoming Encounters Date Type Department Care Team (Late st Contact Info) Description 02/26/2024 10:15 AM EDT Office Visit Endocrinology at [facility] [place] [address] Vin Craig MD [facility] [place] [address] documented as of this encounter Procedures Procedure Name Priority Date/Time Associated Diagnosis Comments CYTOPATHOLOGY NON-GYNECOLOGICAL Routine 01/10/2023 9:27 AM EDT Thyroid nodule documented in this encounter Results * Vitamin D, 25-Hydroxy (01/10/2023 10:54 AM EDT) 25-OH Vit D Total 34 21 - 100 ng/mL [facility] 25-OH Vit D Interp Sufficient [facility] Blood 01/10/2023 10:5 4 AM EDT 01/10/2023 11:12 AM EDT Narrative Resulting Agency Comment Spec In Lab Vin Craig MD CHEMISTRY ORDERABLE S [facility] [place] [address] * TSH [place] (01/10/2023 10:54 AM EDT) TSH 1.83 0.27 - 4.20 mcIU/mL [facility] Comment: Reference Interval (mcIU/mL): Females: ??First Trimester: 0.23-3.88 ??Second Trimester: 0.22-3.90 ??Third Trimester: 0.44-4.66 Blood 01/10/2023 10:5 4 AM EDT 01/10/2023 11:12 AM EDT Narrative Resulting Agency Comment Spec In Lab Vin Craig MD CHEMISTRY ORDERABLE S Performing Organization Address City/[facility]/ZIP Co de Phone Number [facility] [place] [address] * Cytopathology Non-Gynecological (01/10/2023 9:27 AM EDT) AP Specimen 01/10/2023 9:27 AM EDT 01/10/2023 9:27 AM EDT Narrative [facility] - 01/10/2023 9:27 AM EDT Specimen requisition ordered. ??Separate Pathology report to follow Vin Craig MD PATHOLOGY/CYTOLOGY ORDERABLES Performing Organization Address City/[facility] [place] [address] documented in this encounter Visit Diagnoses Diagnosis Thyroid nodule Nontoxic uninodular goiter Vitamin D deficiency Unspecified vitamin D deficiency documented in this encounter Care Teams Tourist Camp Attendant Relationship Specialty Start Date End Date Carina Davis PA [address] [place] [address] PCP - General Family Medicine 03/02/22 documented as of this encounter
--- OUTSIDE RECORDS SUMMARY | 2024-01-29 04:53 | XMS_ITS | Encounter Summary ---
Author Organization [facility] Address [facility] Adolfo [facility] [place] [address] Care Team Providers Care Flux Mixer Name Role Phone Baylee Elena Mukesh JORDAN Primary Care Provider [phone] Encounter Details Date Type Department Care Team (Late st Contact Info) Description 02/26/2019 Orders [place] [address] Noemi Hudson MD [facility] [place] [address] 02/04/2014 Dr. Holland Left Anterior AMBER; 04/01/2018 [...] 10:15 AM EDT Office [place] [address] Cornell Harper MD [facility] [place] [address] documented as of this encounter Results * [...] below. ? Electronically signed by: BLESSING Coronado [facility] ([phone]), at 02/26/2019 1:30 PM Narrative 02/26/2019 1:30 [...] means documented in this encounter Care Teams Flux Mixer Relationship Specialty Start Date End Date Baylee Elena APRN PCP - General Family Medicine 03/25/18 03/01/22 documented as of this encounter
--- OUTSIDE RECORDS SUMMARY | 2024-01-29 04:53 | XMS_ITS | Encounter Summary ---
[place] [address] Care Team Providers Care Health Management Consultant Name Role Phone Baylee Elena APRN Primary Care Provider [phone] Reason for Visit * Reason Onset Date Comments Other 07/05/2018 Dislocation 06/16 08/02 Encounter Details Date Type Department Care Team (Late st Contact Info) Description 07/05/2018 [place] [id number] Chelsi Bermudez RMA Other (Dislocation 07/05/18) Social [...] I asked that she call us at [phone] Opt 2 for schding or Opt 3 for Nursing/MA call center. * Telephone Encounter - Chelsi Bermudez RMA - 07/05/2018 2:31 PM EST Subjective: Dislocation of R Hip DOI 07/05/18 SP Surgeon Role Noemi Hudson MD Primary [place], Sarah Higginbotham MD Resident-Surgeon Jad Procedure Laterality [...] call the ambulance and ws transported to [facility] in [facility]. They did a manipulation and were able to put her hip back in place. She was placed into a knee immobilizer. She is being discharged today and was told she would need follow up with Dr Hudson. Plan: I let her know that she needs to ask them to push all images and ed notes to [facility] so Dr Hudson will have them for review. I let her know that I will send this message to Dr Hudson and we will call her with a new plan for follow up. Patient/Responsible democrat voices an understanding of advice? yes documented in this encounter Plan of Treatment Upcoming Encounters Date Type Department Care Team (Late st Contact Info) Description 02/26/2024 10:15 AM EDT Office Visit Endocrinology at [facility] [place] [address] Cornell Harper MD [facility] [place] [address] documented as of this encounter Visit Diagnoses Not on filedocumented in this encounter Care Teams Health Management Consultant Relationship Specialty Start Date End Date Baylee Elena APRN PCP - General Family Medicine 03/25/18 03/01/22 documented as of this encounter
--- OUTSIDE RECORDS SUMMARY | 2024-01-29 04:53 | XMS_ITS | Encounter Summary ---
Author Organization [facility] Address [facility] [address] Care Team Providers Care Cleaner And Preparer Name Role Phone Ulices Baylee Mayorga APRN Primary Care Provider [phone] Encounter Details Date Type Department Care Team (Latest Contact Info) Description 02/26/2019 11:15 AM EDT - 02/26/2019 11:59 PM EDT Hospital Encounter XRay at [address] [place] [address] Noemi Hudson MD [facility] [place] [address] Primary osteoarthritis of both knees Discharge Disposition: [...] Endocrinology at [facility] [place] [address] [address] [place] [address] documented as of this encounter Procedures Procedure Name Priority Date/Time Associated Diagnosis Comments XR KNEE STANDING ALIGNMENT AP LAT [place] SKYLINE BILAT Routine 02/26/2019 11:43 AM EDT Primary osteoarthritis of both knees documented in this encounter Results * XR Knee Standing Alignment AP Lat [place] Bilat (02/26/2019 11:43 AM EDT) Anatomical Region Laterality Modality Bilateral Digital Radiogra phy Impressions 02/26/2019 4:12 PM EDT Bilateral knee osteoarthritis. There is pronounced medial compartment narrowing at the left knee. Thank you for letting us participate in the care of this patient. For questions regarding this report, please contact the number below. ? Electronically signed by: BLESSING Coronado [facility] ([phone]), at 02/26/2019 4:12 PM Narrative 02/26/2019 4:12 PM EDT EXAMINATION: XR [...] leg documented in this encounter Care Teams Cleaner And Preparer Relationship Specialty Start Date End Date Baylee Elena, PLASTIC PANEL INSTALLER PCP - General Family Medicine 03/25/18 03/01/22 documented as of this encounter
--- OUTSIDE RECORDS SUMMARY | 2024-01-29 04:53 | XMS_ITS | Encounter Summary ---
Author Organization [facility] [place] [address] Care Team Providers Care Fermentation Manager Name Role Phone Carina Davis Primary Care Provider Encounter Details Date Type Department Care Team (Late st Contact Info) Description 01/16/2024 1:45 PM EDT Ancillary Procedure [place] [address] Carina Davis PA [address] [place] [address] Social History Tobacco Use Types Packs/Day Years [...] 10:15 AM EDT Office [place] [address] Cornell Harper MD [facility] [place] [address] documented as of this encounter Procedures Procedure Name Priority Date/Time Associated Diagnosis Comments FILM LIBRARY STORAGE ONLY ULTRASOUND STUDY Routine 01/16/2024 1:44 PM EDT documented in this encounter Results * Film Library- Storage Only Ultrasound Study (01/16/2024 1:44 PM EDT) Narrative [facility] - 01/16/2024 1:44 PM EDT This exam is auto-finalizing. It's purpose is for storage only. Carina AMES William FILM LIBRARY ORD ERABLES [place], [place] documented in this encounter Visit Diagnoses Not on filedocumented in this encounter Care Teams Fermentation Manager Relationship Specialty Start Date End Date Carina Davis PA [address] [place] [address] PCP - General Family Medicine 03/02/22 documented as of this encounter
--- OUTSIDE RECORDS SUMMARY | 2024-01-29 04:53 | XMS_ITS | Encounter Summary ---
Author Organization [facility] Address [facility] [place] [address] Care Team Providers Care Key Bed Installer Name Role Phone Carina Davis Primary Care Provider [phone] Encounter Details Date Type Department Care Team [...] Endocrinology at [facility] [place] [address] Cornell Harper MD [facility] [place] [place] [address] documented as of this encounter Visit Diagnoses Not on filedocumented in this encounter Care Teams Key Bed Installer Relationship Specialty Start Date End Date Carina Davis PA [address] [place] [address] PCP - General Family Medicine 03/02/22 documented as of this encounter
--- OUTSIDE RECORDS SUMMARY | 2024-01-29 04:53 | XMS_ITS | Encounter Summary ---
[place] [address] Care Team Providers Care Speech And Language Clinician Name Role Phone Carina Davis Primary Care Provider [phone] Reason for Referral * Consultation (Routine) - Closed Specialty Diagnoses / Procedures Referred By Contfermín t Referred To Contact Endocrinology Diagnoses Thyroid nodule Carina Davis PA [address] [place] [address] [facility] [address] [place] [phone] Referral ID Status Reason Start Date Expiration Date V isits Requested Visits Authorized [id number] Closed Consult, Test & Treat PCP Updated and/or Approved 03/02/2022 03/02/2023 6 6 Encounter Details Date Type Department Care Team (Late st Contact Info) Description 03/02/2022 Transcribe Orders eDH Incoming Referrals [phone] Carina Davis PA [address] [place] [address] Thyroid nodule Social History Tobacco [...] 10:15 AM EDT Office Visit Endocrinology at [facility] [place] [address] Cornell [place] [address] Scheduled Referrals Name Type Priority Associated Diagnoses Order Schedule Referral to Endocrinology Outpatient Referral Routine Thyroid nodule Ordered: 03/02/2022 documented as of this encounter Visit Diagnoses Diagnosis Thyroid nodule Nontoxic uninodular goiter documented in this encounter Care Teams Speech And Language Clinician Relationship Specialty Start Date End Date Carina Davis PA [address] [place] [address] PCP - General Family Medicine 03/02/22 documented as of this encounter
--- OUTSIDE RECORDS SUMMARY | 2024-01-29 04:53 | XMS_ITS | Encounter Summary ---
Author Organization [facility] Address [facility] [place] [address] Care Team Providers Care Paper Maker Name Role Phone Baylee Elena APRN Primary Care Provider [phone] Reason for Referral * Physical Therapy (Routine) - Specialty Diagnoses / Procedures Referred By Calin vasquez Referred To Contact Physical Therapy Diagnoses S/P revision of total hip Noemi Hudson MD [facility] [place] [address] Referral ID Status Reason Start Date Expiration Date V isits Requested Visits Authorized [id number] Evaluate and Treat 05/01/2018 10/28/2018 20 20 Encounter Details Date Type Department Care Team (Late st Contact Info) Description 05/01/2018 Orders [place] [address] Noemi Hudson MD [facility] [place] [address] 04/01/2018 S/P revision of right total hip [...] at [facility] [place] [address] Cornell Harper MD [facility] [place] [address] Scheduled Referrals Name Type Priority Associated Diagnoses Orde r Schedule Referral to Physical Therapy Outpatient Referral Routine 04/01/2018 S/P revision of right total hip (Dr. Hudson) Ordered: 05/01/2018 documented as of this encounter Visit Diagnoses Diagnosis 04/01/2018 S/P revision of right total hip (Dr. Hudson) Hip joint replacement by other means documented in this encounter Care Teams Paper Maker Relationship Specialty Start Date End Date Baylee Elena APRN PCP - General Family Medicine 03/25/18 03/01/22 documented as of this encounter
--- OUTSIDE RECORDS SUMMARY | 2024-01-29 04:53 | XMS_ITS | Encounter Summary ---
Author Organization [facility] Address [facility] [place] [address] Care Team Providers Care Chimney Supervisor Brick Name Role Phone Carina Davis Primary Care Provider [phone] Encounter Details Date Type Department Care Team [...] Endocrinology at [facility] [place] [address] Cornell Harper MD [facility] [place] [address] documented as of this encounter Visit Diagnoses Not on filedocumented in this encounter Care Teams Chimney Supervisor Brick Relationship Specialty Start Date End Date Carina Davis PA [address] [place] [address] PCP - General Family Medicine 03/02/22 documented as of this encounter
--- OUTSIDE RECORDS SUMMARY | 2024-01-29 04:53 | XMS_ITS | Encounter Summary ---
Author Organization [facility] [place] [address] Care Team Providers Care Human Resources Clerk Name Role Phone Baylee Elena APRN Primary Care Provider [phone] Encounter Details Date Type Department Care Team (Late st Contact Info) Description 02/21/2022 Ancillary Procedure [place] [address] Baylee Elena APRN [address] [place], [place] [id number] Social History Tobacco Use Types Packs/Day Years [...] 10:15 AM EDT Office Visit Endocrinology at [facility] [place] [address] Cornell Harper MD [facility] [place] [address] documented as of this encounter Procedures [...] Elena APRN IMWilliam FILM LIBRARY ORD ERABLES [place], [place] documented in this encounter Visit Diagnoses Not on filedocumented in this encounter Care Teams Human Resources Clerk Relationship Specialty Start Date End Date Baylee Elena APRN PCP - General Family Medicine 03/25/18 03/01/22 documented as of this encounter
--- OUTSIDE RECORDS SUMMARY | 2024-01-29 04:53 | XMS_ITS | Encounter Summary ---
Author Organization [facility] Address [facility] [place] [address] Care Team Providers Care Gas Golf Cart Repairer Name Role Phone Carina Davis Primary Care Provider [phone] Encounter Details Date Type Department Care Team [...] Visit Endocrinology at [facility] [place] [address] Cornell Harper MD [facility] [place] [address] documented as of this encounter Visit Diagnoses Not on filedocumented in this encounter Care Teams Gas Golf Cart Repairer Relationship Specialty Start Date End Date Carina Davis PA [address] [place] [address] PCP - General Family Medicine 03/02/22 documented as of this encounter
--- OUTSIDE RECORDS SUMMARY | 2024-01-29 04:53 | XMS_ITS | Encounter Summary ---
Author Organization [facility] [place] [address] Care Team Providers Care Full Service Supervisor Name Role Phone Baylee Elena APRN Primary Care Provider [phone] Reason for Referral * Physical Therapy (Routine) - Specialty Diagnoses / Procedures Referred By Calin vasquez Referred To Contact Physical Therapy Diagnoses Primary osteoarthritis of both knees Noemi Hudson MD [facility] [place] [address] Referral ID Status Reason Start Date Expiration Date V isits Requested Visits Authorized [id number] Evaluate and Treat 02/26/2019 08/25/2019 12 12 Reason for Visit * Reason Comments Follow Up Surgery right AMBER revision; left hip pain Encounter Details Date Type Department Care Team (Latest Contact Info) Description 02/26/2019 10:00 AM EDT Office [place] [address] Noemi Hudson MD [facility] [place] [address] History of bilateral hip replacements; Primary osteoarthritis [...] 10:15 AM EDT Office Visit Endocrinology at [facility] [place] [address] Cornell Harper MD [facility] [place] [address] Scheduled Referrals Name Type Priority Associated Diagnoses Orde r Schedule Referral to Physical Therapy Outpatient Referral Routine Primary osteoarthritis of both knees Ordered: 02/26/2019 documented as of this encounter Results * XR Knee Standing Alignment AP Lat [place] Bilat (02/26/2019 11:43 AM EDT) Anatomical Region [...] mg documented in this encounter Care Teams Full Service Supervisor Relationship Specialty Start Date End Date Baylee Elena APRN PCP - General Family Medicine 03/25/18 03/01/22 documented as of this encounter
--- OUTSIDE RECORDS SUMMARY | 2024-01-29 04:53 | XMS_ITS | Encounter Summary ---
Author Organization [facility] [place] [address] Care Team Providers Care Trick Rodeo Rider Name Role Phone Carina Davis Primary Care Provider [phone] Reason for Visit * Reason Comments Medication Refill Encounter Details Date Type Department Care Team (Late st Contact Info) Description 01/12/2023 Refill [place] [address] Cesar Pineda, [facility] [place] [address] Social History Tobacco Use Types Packs/Day Years [...] 10:15 AM EDT Office Visit [place] [address] Cornell Harper MD [facility] [place] [address] documented as of this encounter Visit Diagnoses Not on filedocumented in this encounter Care Teams Trick Rodeo Rider Relationship Specialty Start Date End Date Carina Davis PA [address] [address] PCP - General Family Medicine 03/02/22 documented as of this encounter
--- OUTSIDE RECORDS SUMMARY | 2024-01-29 04:53 | XMS_ITS | Encounter Summary ---
Author Organization [facility] Address [facility] [place] [address] Care Team Providers Care Powder Blender Name Role Phone Ulices Baylee Mayorga APRN Primary Care Provider [phone] Encounter Details Date Type Department Care Team (Latest Contact Info) Description 02/26/2019 8:27 AM EDT - 02/26/2019 11:14 AM EDT Hospital Encounter XRay at [address] [place] [address] Noemi Hudson MD [facility] [place] [address] History of total hip arthroplasty, right; 02/04/2014 [...] Visit Endocrinology at [facility] [place] [address] Cornell Harper [place] [facility] [place] [address] Scheduled Orders Name Type Priority Associated Diagnoses [...] means documented in this encounter Care Teams Powder Blender Relationship Specialty Start Date End Date Baylee Elena APRN PCP - General Family Medicine 03/25/18 03/01/22 documented as of this encounter
--- OUTSIDE RECORDS SUMMARY | 2024-01-29 04:53 | XMS_ITS | Encounter Summary ---
Author Organization [facility] [place] [address] Care Team Providers Care Human Capital Analyst Name Role Phone Carina Davis Primary Care Provider [phone] Encounter Details Date Type Department Care Team (Latest Contact Info) Description 01/10/2023 10:45 AM EDT Laboratory Appointment Lab [address] [place] [address] Thyroid nodule; Vitamin D deficiency [...] 10:15 AM EDT Office [place] [address] Cornell Harper MD [facility] [place] [address] documented as of this encounter Procedures Procedure Name Priority Date/Time Associated Diagnosis Comments HC THYROID STIMULATING HORMONE, SERUM Routine 01/10/2023 10:54 AM EDT Thyroid nodule Vitamin D deficiency HC VITAMIN D TOTAL-25 HYDROXY Routine 01/10/2023 10:54 AM EDT Thyroid nodule Vitamin D deficiency documented in this encounter Results * TSH [place] (01/10/2023 10:54 AM EDT) TSH 1.83 0.27 - 4.20 mcIU/mL [facility] Comment: Reference Interval (mcIU/mL): Females: ??First Trimester: 0.23-3.88 ??Second Trimester: 0.22-3.90 ??Third Trimester: 0.44-4.66 Blood 01/10/2023 10:5 4 AM EDT 01/10/2023 11:12 AM EDT Narrative Resulting Agency Comment Spec In Lab Cornell Harper MD CHEMISTRY ORDERABLE S [facility] [place] [address] * Vitamin D, 25-Hydroxy (01/10/2023 10:54 AM EDT) 25-OH Vit D Total 34 21 - 100 ng/mL [facility] 25-OH Vit D Interp Sufficient [facility] Blood 01/10/2023 10:5 4 AM EDT 01/10/2023 11:12 AM EDT Narrative Resulting Agency Comment Spec In Lab Cornell Harper MD CHEMISTRY ORDERABLE S [facility] [place] [address] documented in this encounter Visit Diagnoses Diagnosis Thyroid nodule Nontoxic uninodular goiter Vitamin D deficiency Unspecified vitamin D deficiency documented in this encounter Care Teams Human Capital Analyst Relationship Specialty Start Date End Date Carina Davis PA [address] [address] PCP - General Family Medicine 03/02/22 documented as of this encounter
--- OUTSIDE RECORDS SUMMARY | 2024-01-29 04:53 | XMS_ITS | Encounter Summary ---
Author Organization [facility] Address [facility] [place] [address] Care Team Providers Care Specialty Trimmer Name Role Phone Carina Davis Primary Care Provider [phone] Encounter Details Date Type Department Care Team [...] [facility], [place] [place] [address] Cornell Harper MD [facility] [place] [address] documented as of this encounter Visit Diagnoses Not on filedocumented in this encounter Care Teams Specialty Trimmer Relationship Specialty Start Date End Date Carina Davis PA [address] [place] [address] PCP - General Family Medicine 03/02/22 documented as of this encounter
--- OUTSIDE RECORDS SUMMARY | 2024-01-29 04:53 | XMS_ITS | Encounter Summary ---
Author Organization [facility] Address [facility] [place] [address] Care Team Providers Care Stiff Straw Hat Washer Name Role Phone Carina Davis Primary Care Provider [phone] Encounter Details Date Type Department Care Team [...] AM EDT Office Visit Endocrinology at [facility] [place] [address] [facility] [place] [address] documented as of this encounter Visit Diagnoses Not on filedocumented in this encounter Care Teams Stiff Straw Hat Washer Relationship Specialty Start Date End Date Carina Davis PA [address] [place] [address] PCP - General Family Medicine 03/02/22 documented as of this encounter
--- OUTSIDE RECORDS SUMMARY | 2024-01-29 04:53 | XMS_ITS | Encounter Summary ---
Author Organization [facility] Address [facility] [place] [address] Care Team Providers Care Pension Fund Manager Name Role Phone Carina Davis Primary Care Provider [phone] Encounter Details Date Type Department Care Team [...] Endocrinology at [facility] [place] [address] Cornell Harper MD [facility] [place] [address] documented as of this encounter Visit Diagnoses Not on filedocumented in this encounter Care Teams Pension Fund Manager Relationship Specialty Start Date End Date Carina Davis PA [address] [place] [address] PCP - General Family Medicine 03/02/22 documented as of this encounter
--- OUTSIDE RECORDS SUMMARY | 2024-01-29 04:54 | XMS_ITS | Encounter Summary ---
Author Organization [facility] [place] [address] Care Team Providers Care Hand Roller Engraver Name Role Phone Jamarcsu Rodriguez MD Primary Care Provider [phone] Reason for Referral * Physical Therapy (Routine) - Complete - Patient Will Schedule External Appt Specialty Diagnoses / Procedures Referred By Calin t Referred To Contact Physical Therapy Diagnoses Primary osteoarthritis of left hip Status post hip replacement Betty Dong [facility] [place] [address] Referral ID Status Reason Start Date Expiration Date Visits Requested Visits Authorized [id number] Complete - Patient Will Schedule External Appt Evaluate and Treat 03/11/2014 09/07/2014 12 12 Reason for Visit * Reason Comments Left Hip Pain Left total hip arthr oplasty, anterior Encounter Details Date Type Department Care Team (Late st Contact Info) Description 03/11/2014 10:30 AM EDT Office [place] [address] Betty Dong [facility] [place] [address] Status post hip replacement (Primary Dx); 02/04 [...] this encounter Progress Notes * Betty Dong, FOOD MANAGER - 03/11/2014 11:10 AM EDT Subjective: Chief Complaint: First global post op for left hip AMBER Pertinent Surgical History: Date: February 04, 2014 Surgeon: Lance Holland MD Door Fitter: Pre-operative diagnosis: Left hip osteoarthritis Surgical Procedure Performed: Injection left hip with 10 cc marcaine 0.25% with epi, into skin and subcutaneous tissues Left total hip arthroplasty, anterior Hueter approach with Elim table Left hip intraoperative radiologic examination Components Used: Depuy Corail stem, size 11, standard Derby cup, 50 mm, solid 32 mm ID, [...] Endocrinology at [facility] [place] [address] Cornell Harper MD [facility] [place] [address] Scheduled Referrals Name Type Priority Associated Diagnoses [...] thigh documented in this encounter Care Teams Hand Roller Engraver Relationship Specialty Start Date End Date Jamarcus Rodriguez MD [address] [place] [address] PCP - General 06/07/10 03/24/18 documented as of this encounter
--- OUTSIDE RECORDS SUMMARY | 2024-01-29 04:54 | XMS_ITS | Encounter Summary ---
Author Organization Formerly [facility] [place] [address] Care Team Providers Care Teacher Citizenship Name Role Phone Ulices Baylee Mayorga APRN Primary Care Provider Encounter Details Date Type Department Care Team (Latest Contact Info) Description 03/28/2018 12:50 PM EDT [place] [phone] Prosthetic hip implant failure, initial encounter; Pain [...] 10:15 AM EDT Office [place] [phone] Cornell Harper MD [place] [address] documented as of this encounter Procedures Procedure [...] extremity TYPE AND SCREEN, SDP (FUTURE SURGERY, [facility] SAME DAY PROGRAM ONLY) Routine 03/28/2018 1:08 [...] Sed Rate 11 0 - 20 mm/hr [facility] Blood specimen (specimen) Venous Draw / Unknown 03/28/2018 1:08 PM EDT 03/28/2018 1:36 PM EDT Narrative Resulting Agency Comment Spec In Lab Good AMES HEMATOLOGY ORDERABL ES Performing Organization Address [facility]/ZIP Co de Phone Number [facility] [place] [address] * CRP, acute inflammation (03/28/2018 1:08 PM EDT) Pathologist [facility] CRP 3.4 <=4.9 mg/L [facility] Blood specimen (specimen) Venous Draw / Unknown 03/28/2018 1:08 PM EDT 03/28/2018 1:40 PM EDT Narrative Resulting Agency Comment Spec In Lab Good [facility] CHEMISTRY ORDERABLE S Performing Organization Address [facility] Co de Phone Number [facility] [place] [address] * ABORH Recheck Status (03/28/2018 1:08 PM EDT) Pathologist [facility] ABORH Type Recheck Completed [facility] Blood specimen (specimen) 03/28/2018 1:08 PM EDT 03/28/2018 1:37 PM EDT Narrative Resulting Agency Comment Spec In Lab Noemi Hudson MD [facility] B[facility] [place] [place] Performing Organization Address [facility]/ZIP Co de Phone Number [facility] [place] [address] * Differential, Automated (03/28/2018 1:08 PM EDT) Pathologist [facility] Neutrophils % 70.6 % [facility] Neutr Abs (ANC) 4.50 1.70 - 6.10 x10(3)/[facility] Lymphocytes % 20.4 % [facility] Lymphocytes Abs 1.3 0.9 - 3.2 x10(3)/[facility] Monocytes % 6.8 % [facility] Monocyte Abs 0.4 0.3 - 0.9 x10(3)/[facility] Eosinophils % 1.6 % [facility] Eosinophils Abs 0.1 0.0 - 0.4 x10(3)/[facility] Basophils % 0.3 % [facility] Basophils Abs 0.0 0.0 - 0.1 x10(3)/[facility] Immature Gran % 0.30 % [facility] Comment: Immature granulocytes(IG's)percentage and absolute count will include metamyelocytes, myelocytes, and promyelocytes. Blood smears from CBCs yielding IG's will be scanned manually for concordance. If this scan disagrees with the automated IG or if promyelocytes are noted, a manual differential will be performed. Fay Gran Abs 0.02 0.00 - 0.04 x10(3)/[facility] Blood specimen (specimen) 03/28/2018 1:08 PM EDT 03/28/2018 1:36 PM EDT Narrative Resulting Agency Comment Spec In Lab Noemi Hudson MD HEMATOLOGY ORDERABL ES [facility] [place] [address] * Hemogram (03/28/2018 1:08 PM EDT) WBC 6.4 4.0 - 9.5 x10(3)/[facility] RBC 4.59 4.00 - 5.21 x10(6)/[facility] Hemoglobin 13.0 11.7 - 15.5 gm/dL [facility] Hematocrit 39.5 35.7 - 45.8 % [facility] MCV 86.1 82.6 - 94.4 fL [facility] MCH 28.3 27.1 - 32.0 pg [facility] MCHC 32.9 31.7 - 35.0 gm/dL [facility] Platelets 213 145 - 357 x10(3)/[facility] RDWSD 41.9 37.0 - 46.0 [facility] RDWCV 13.3 11.5 - 14.1 % [facility] MPV 9.7 7.6 - 12.9 [facility] nRBC % Auto 0.0 % [facility] nRBC Abs Auto 0.000 0.000 - 0.000 x10(3)/[facility] Blood specimen (specimen) 03/28/2018 1:08 PM EDT 03/28/2018 1:36 PM EDT Narrative Resulting Agency Comment Spec In Lab Noemi Hudson MD HEMATOLOGY ORDERABL ES Performing Organization Address [facility] Co de Phone Number [facility] [place] [address] * Antibody screen (03/28/2018 1:08 PM EDT) Ab Screen Interp Negative [facility] Expires at [id number] on: 04/04/2018 [facility] Blood specimen (specimen) 03/28/2018 1:08 PM EDT 03/28/2018 1:37 PM EDT Narrative Resulting Agency Comment Spec In Lab Noemi Hudson MD BLOOD BANK LAB [place]DE RABKARL Performing Organization Address City/[facility]/ZIP Co de Phone Number [facility] [place] [address] * ABO/Rh Typing (03/28/2018 1:08 PM EDT) ABORH Type A Pos [facility] Blood specimen (specimen) 03/28/2018 1:08 PM EDT 03/28/2018 1:37 PM EDT Narrative Resulting Agency Comment Spec In Lab Noemi Hudson MD BLOOD BANK LAB ORDE RABKARL Performing Organization Address City/[facility]/ZIP Co de Phone Number [facility] [place] [address] * APTT (03/28/2018 1:08 PM EDT) PTT 29 25 - 37 sec [facility] Comment: The PTT is NOT appropriate for heparin monitoring. Use the Anti-Xa level for heparin monitoring (HEP UFH) or LMWH monitoring (HEP LMW). A PTT less than 37 seconds generally indicates adequate hemostasis. Blood specimen (specimen) 03/28/2018 1:08 PM EDT 03/28/2018 1:36 PM EDT Narrative Resulting Agency Comment Spec In Lab Noemi Hudson MD HEMATOLOGY ORDERABL ES Performing Organization Address [facility] Co de Phone Number [facility] [place] [address] * Prothrombin Time (03/28/2018 1:08 PM EDT) PT 11.1 9.4 - 12.5 sec [facility] INR 1.0 [facility] Comment: An INR <2.0 indicates [...] MD HEMATOLOGY ORDERABL ES Performing Organization Address [facility]/ZIP Co de Phone Number [facility] [place] [address] * (ABNORMAL) Basic Metabolic Panel (non-fasting) (03/28/2018 1:08 PM EDT) Glucose Lvl 98 65 - 199 mg/dL [facility] Comment:Diabetes: >=200 mg/d L plus symptoms BUN 17 8 - 18 mg/dL [facility] Creatinine 0.83 0.70 - 1.20 mg/dL [facility] Sodium 141 135 - 145 mmol/L [facility] Potassium 4.0 3.5 - 5.0 mmol/L [facility] Comment: Please note: ??Patients with WBC >100,000 may have falsely elevated Potassium levels. ??For accurate Potassium quantification in these patients send serum separator tube (gold top) for subsequent determinations. ??Contact the Clinical Chemistry Laboratory if there are any questions. Chloride 103 98 - 107 mmol/L [facility] CO2 22 22 - 31 mmol/L [facility] Anion Gap 16(H) 5 - 15 mmol/L [facility] Calcium 9.4 8.5 - 10.5 mg/dL [facility] Estimated GFR 71 >=60 mL/min/1. 73 m?? [facility] Comment: The eGFR was calculated using the CKD-EPI equation. As with all creatinine based estimates of kidney function, eGFR values calculated with the CKD-EPI equation are not accurate in patients with acute kidney failure, extremes of body mass or the acutely ill. [email or web address] eGFR 83 >=60 mL/min/1. 73 m?? [facility] Comment: The eGFR was calculated using the CKD-EPI equation. As with all creatinine based estimates of kidney function, eGFR values calculated with the CKD-EPI equation are not accurate in patients with acute kidney failure, extremes of body mass or the acutely ill. [email or web address] Blood specimen (specimen) 03/28/2018 1:08 PM EDT 03/28/2018 1:36 PM EDT Narrative Resulting Agency Comment Spec In Lab Noemi Hudson MD CHEMISTRY ORDERABLE S [facility] [place] [address] documented in this encounter Visit Diagnoses Diagnosis Prosthetic hip implant failure, initial encounter Pain of right lower extremity documented in this encounter Care Teams Teacher Citizenship Relationship Specialty Start Date End Date Baylee Elena APRN PCP - General Family Medicine 03/25/18 03/01/22 documented as of this encounter
--- OUTSIDE RECORDS SUMMARY | 2024-01-29 04:54 | XMS_ITS | Encounter Summary ---
[place] [address] Care Team Providers Care Compliance Attorney Name Role Phone Jamarcus Rodriguez MD Primary Care Provider [phone] Reason for Visit * Reason Onset Date Comments Reminder Appointment 12/22/2014 Encounter Details Date Type Department Care Team (Late st Contact Info) Description 12/22/2014 [place] [phone] Lance Holland [place] [place] [address] Reminder Appointment Social History Tobacco Use Types [...] Dr. Holland relocated his orthopaedic practice to [facility] in [place], [place]. You are on our list to schedule a re- evaluation your total joint replacement performed by Dr. Holland. If you choose to remain at [facility], we are more than happy to schedule this follow-up with one of our total joint associate providers at this time. If you choose to continue to follow with Dr. Holland, please call his office at [facility] in [place], [place] at [phone] and they would be happy to assist you. documented in this encounter Plan of Treatment Upcoming Encounters Date Type Department Care Team (Late st Contact Info) Description 02/26/2024 10:15 AM EDT Office Visit Endocrinology at [facility] [place] [phone] Cornell Harper MD [facility] [place] [address] documented as of this encounter Visit Diagnoses Not on filedocumented in this encounter Care Teams Compliance Attorney Relationship Specialty Start Date End Date Jamarcus Rodriguez MD [address] [place] [address] PCP - General 06/07/10 03/24/18 documented as of this encounter
--- OUTSIDE RECORDS SUMMARY | 2024-01-29 04:54 | XMS_ITS | Encounter Summary ---
Author Organization [facility] [place] [address] Care Team Providers Care Manager Distribution Center Name Role Phone Baylee Elena APRN Primary Care Provider [phone] Reason for Visit * Auth/Cert Specialty Diagnoses / Procedures Referred By Calin vasquez Referred To Contact Diagnoses Prosthetic hip implant failure, initial encounter Right AMBER mechanical failure Procedures PRO REVISE TOTAL HIP REPLACEMENT @TOTAL HIP REVISION ARTHROPLASTY, COMPLETE (WRVU 30.28) Referral ID Status Reason Start Date Expiration Date Visits Re quested Visits Authorized [id number] 1 1 Encounter Details Date Type Department Care Team (Late st Contact Info) Description 04/01/2018 1:00 PM EDT - 04/01/2018 4:00 PM EDT Surgery [place] [address] Noemi Hudson MD [facility] [place] [address] @TOTAL HIP REVISION ARTHROPLASTY, COMPLETE (WRVU 30.28) [...] encounter Discharge Summaries * Lindsey Rice P, FLIGHT NURSE - 04/01/2018 9:42 AM EDT Discharge Summary [facility] Age: 72 y.o. Language: Albanian Race: White Ethnicity: Not nor Admit date: 04/01/2018 Discharge date and time: 04/02/2018 Attending Physician: Noemi Hudson MD Discharge Physician: Noemi Hudson MD Follow-up Recommendations for Providers: See discharge instructions for additional details. Future Appointments Date Time Provider Department Center 04/30/2018 3:00 PM [facility] DX ROOM 6 [facility] 04/30/2018 4:00 PM Noemi Hudson MD [facility] Inpatient Provider Contact Information: Noemi Hudson MD Orthopedics: [phone] After hours and weekends, call [facility] Windows Architect, , and have the Orthopedic resident paged. [...] bowel movement. You can also take an kolc-wmn-agijrfm medication, Miralax if needed to combat constipation. [...] as much as possible. Call your doctor ([phone]) if you develop: 1. Fever greater than 100.5 2. Severe nausea or vomiting 3. Increasing pain that is not controlled by pain medications 4. Increasing redness, swelling, or drainage from incisions 5. Change in sensation FOLLOW-UP APPOINTMENTS: 1. You will have follow-up appointments at [facility] as indicated below in Future Appointment and Orders. 2. You will need to have x-rays prior to your follow-up appointment on 04/30/2018. Please come to Radiology, desk 3T, 1 hour BEFORE that appointment for these x-rays. Future Appointments Date Time Provider Department Center 04/30/2018 3:00 PM [facility] DX ROOM 6 Xray [facility] Rad Clin 04/30/2018 4:00 PM Noemi Hudson MD [facility] [address] [place] [address] If you have questions or concerns: Sunday through Sunday, 8 AM - 5 PM, please call Noemi Tristan MD's office at . If it is after 5 PM, the weekend, or holidays, please call and ask to speak with theOrthopedic resident on-call. General Instructions None Future Appointments and Orders Future Appointments Provider Department Dept Phone 04/30/2018 3:00 PM [facility] DX ROOM 6 XRay at [place] [phone] Please go to Clearing Supervisor Area 3T ([place] Location). 04/30/2018 4:00 PM Noemi Hudson MD Orthopaedics at [place] [phone] Future Orders Complete By Expires Referral to Home Health - at DISCHARGE [[id number] CPT(R)] As directed Process Instructions: Scheduling Instructions: Comments: DOCUMENTATION FOR VNA SERVICES (INCLUDING THOSE PATIENTS WITH MEDICARE COVERAGE REQUIRING HOME VNA SERVICES AND/OR HOSPICE SERVICES) Alyssa Burnham Discharge to own home: [address] [facility] [address] Mobile Not on file. 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 PHONE: [phone] FAX: [phone] Home care orders for Revision Total Hip [...] contact info: Primary Care Provider: Baylee ElenaNIKKI [phone] Discharge References/Attachments None documented in this encounter [...] bowel movement. You can also take an vgqg-dgf-tloswmp medication, Miralax if needed to combat constipation. [...] as much as possible. Call your doctor ([phone]) if you develop: 1. Fever greater than 100.5 2. Severe nausea or vomiting 3. Increasing pain that is not controlled by pain medications 4. Increasing redness, swelling, or drainage from incisions 5. Change in sensation FOLLOW-UP APPOINTMENTS: 1. You will have follow-up appointments at [facility] as indicated below in Future Appointment and Orders. 2. You will need to have x-rays prior to your follow-up appointment on 04/30/2018. Please come to Radiology, desk , 1 hour BEFORE that appointment for these x-rays. Future Appointments Date Time Provider Department Center 04/30/2018 3:00 PM [facility] DX ROOM 6 [facility] [...] Time Provider Department Center 04/30/2018 3:00 PM [facility] DX ROOM 6 [facility] 04/30/2018 4:00 PM Noemi Hudson MD [facility] Associated attestation - Noemi Hudson MD - 04/02/2018 8:26 AM EDT I independently evaluated and saw the patient, and I agree with the above note. Noemi Hudson MD * Cristhian Martel RN - 04/01/2018 6:47 PM EDT [facility] from PACU s/p R hip revision. Patient [...] Time Provider Department Center 04/30/2018 3:00 PM [facility] DX ROOM 6 [facility] [...] APPROACH performed by Lance Holland MD at [facility] MAIN OR Home Medications: Facility-Administered Medications Prior [...] 30.28) [facility]?? PRO TOTAL HIP ARTHROPLASTY 02/04/2014 @TOTAL HIP ARTHROPLASTY, ANTERIOR APPROACH performed by Lance Holland MD at [facility] MAIN OR Social History: Patient is a and lives alone in [place] w/ 2 separate platform steps to [...] precs. Understands reason and importanceof using leg pantry worker to assist abd during supine>sit Skin and soft Tissue: silver mepilex dressing R posterolateral hip CDI Functional Mobility: Supine><sit: out toward R side of flat bed, back in same side, using leg pantry worker to self assist Sit><stand: w/ FWW w/ [...] and home management ARIELLA MCELROY, PT Pager: [phone] PT Evaluation Code Rationale: ?? Diagnosis & [...] functional performance as outlined in this evaluation. [facility] AM-PAC 6 Clicks/stairs Basic Mobility Inpatient [...] with assist, home with home health Pager: [phone] Reed Kilpatrick OT 04/02/2018 Occupational Therapy Rehabilitation [...] Living Environment Comment Pt lives alone in [place], [place]. There are 2 ASHLEY into 1 level where pt plans to sleep in a flat bed, has a raised toilet, walk-in shower w/ a ASHLEY, grab bars, and a shower bench. 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 Self-Care Dominant Hand right Vision Assessment/Intervention Additional [...] Mobility Assessment/Treatment Assistive Device (Bed Mobility) leg pantry worker Wddqwu-em-Zix [place] (Bed Mobility) supervision required;verbal cues required;nonverbal cues required (demo/gesture) Impairments (Bed Mobility) pain;ROM (range of motion) decreased;strength decreased;balance impaired Comment (Bed Mobility) Pt performed bed mobility w/ increased time and verbal cues for technique. flat bed Transfer Assessment/Treatment Bed-Chair [place] (Transfers) supervision required;verbal cues required Chair-Bed [place] (Transfers) supervision required;verbal cues required Qjm-Kmuuy-Nnp Assistive Device (Transfers) rolling walker [place] (Sit-Stand Transfers) supervision required;verbal cues required [place] (Stand-Sit Transfers) supervision required;verbal cues required Rko-Hohfe-Iwq Assistive Device (Transfers) rolling walker [place] (Toilet Transfers) supervision required;verbal cues required Assistive Device (Toilet Transfers) bedside commode;rolling walker Maintain Weight Bearing Status (Transfers) able to maintain weight bearing status Impairments (Transfers) pain;ROM (range of motion) decreased;strength decreased;balance impaired Comment (Transfers) Pt performed sit<>stand w/ no overt LOB. Pt requried verbal cues to kick RLE out prior to sit<>stand initially, pt performing indepdently by end of session. Gait Assessment/Treatment [place] (Gait) supervision required Assistive Device (Gait) rolling [...] understanding, taught backtechnique. Upper Body Dressing Assessment/Training [place] Level (UB Dressing) set up required;independent Lower Body Dressing Assessment/Training Assistive Devices (LB Dressing) sock-aid;child care centre manager Position (LB Dressing) sitting;standing [place] Level (LB Dressing) supervision required;verbal cues required Impairments (LB Dressing) pain;ROM (range of motion) decreased;strength decreased;balance impaired Comment (LB Dressing) Pt required increased time and verbal cuse to perform LB dressing w/ AE. Pt issued and educated sock-aid and child care centre manager. Toileting Assessment/Training Assistive Devices (Toileting) bedside commode Position (Toileting) sitting;standing [place] Level (Toileting) conditional independence Impairments (Toileting) pain;ROM [...] Operative Note Patient Name: Alyssa Burnham : [id number] MR#: [id number] Case Date: 04/01/2018 Surgeon: Surgeon(s) and Role: [...] Hudson MD - 04/01/2018 3:42 PM EDT [facility] Operative Note Patient Name: Alyssa Burnham : [id number] MR#: [id number] Case Date: 04/01/2018 Surgeon: Surgeon(s) and Role: * Noemi Hudson MD - Primary * Sarah Mascorro MD - Resident-Surgeon Jad Preoperative Diagnosis: Mechanical failure of right hip replacement Postoperative Diagnosis: Same Procedure Performed: right Total Hip Arthroplasty Revision (CPT code 77974) Anesthesia: Spinal/Epidural IVF: 1100ml of crystaloid Estimated [...] Implant Name Type Inv. Item Serial No. Supervisor Feed House Lot No. LRB No. Used Action INSER,ALTRX,10D,+[id number] ([id number]) (AUTOREQ) - [id number] IMPLANTS INSER,ALTRX,10D,+[id number] ([id number]) (AUTOREQ) Solfo HEMANTH [id number] Right 1 Implanted HEAD,FEM,S-ROM,ALUMA,32+0 ([id number]) - [id number] IMPLANTS HEAD,FEM,S- ROM,ALUMA,32+0 ([id number]) Sol[employer] HEMANTH [id number] Right 1 Implanted documented in this encounter Plan of Treatment Upcoming Encounters Date Type Department Care Team (Late st Contact Info) Description 02/26/2024 10:15 AM EDT Office Visit Endocrinology at [facility] [place] [address] Cornell Harper [place] [facility] [place] [address] documented as of this encounter Procedures Procedure [...] 3:13 AM EDT) Neutrophils % 90.7 % [facility] Neutr Abs (ANC) 7.83(H) 1.70 - 6.10 x10(3)/mc L [facility] Lymphocytes % 5.3 % [facility] Lymphocytes Abs 0.5(L) 0.9 - 3.2 x10(3)/mc L [facility] Monocytes % 3.6 % [facility] Monocyte Abs 0.3 0.3 - 0.9 x10(3)/mc L [facility] Eosinophils % 0.0 % [facility] Eosinophils Abs 0.0 0.0 - 0.4 x10(3)/[facility] Basophils % 0.2 % [facility] Basophils Abs 0.0 0.0 - 0.1 x10(3)/[facility] Immature Gran % 0.20 % [facility] Comment: Immature granulocytes(IG's)percentage and absolute count will include metamyelocytes, myelocytes, and promyelocytes. Blood smears from CBCs yielding IG's will be scanned manually for concordance. If this scan disagrees with the automated IG or if promyelocytes are noted, a manual differential will be performed. Fay Gran Abs 0.02 0.00 - 0.04 x10(3)/[facility] Blood specimen (specimen) 04/02/2018 3:13 AM EDT 04/02/2018 3:46 AM EDT Narrative Resulting Agency Comment Spec In Lab Sarah Mascorro MD HEMATOLOGY ORDERABLE S [facility] [place] [address] * (ABNORMAL) Hemogram (04/02/2018 3:13 AM EDT) WBC 8.6 4.0 - 9.5 x10(3)/[facility] RBC 4.10 4.00 - 5.21 x10(6)/[facility] Hemoglobin 11.9 11.7 - 15.5 gm/dL [facility] Hematocrit 35.6(L) 35.7 - 45.8 % [facility] MCV 86.8 82.6 - 94.4 fL [facility] MCH 29.0 27.1 - 32.0 pg [facility] MCHC 33.4 31.7 - 35.0 gm/dL [facility] Platelets 203 145 - 357 x10(3)/[facility] RDWSD 42.4 37.0 - 46.0 [facility] RDWCV 13.2 11.5 - 14.1 % [facility] MPV 9.4 7.6 - 12.9 [facility] nRBC % Auto 0.0 % [facility] nRBC Abs Auto 0.000 0.000 - 0.000 x10(3)/[facility] Blood specimen (specimen) 04/02/2018 3:13 AM EDT 04/02/2018 3:46 AM EDT Narrative Resulting Agency Comment Spec In Lab Sarah Mascorro MD HEMATOLOGY ORDERABLE S [facility] [place] [address] * (ABNORMAL) Basic Metabolic Panel (non-fasting) (04/02/2018 3:13 AM EDT) Glucose Lvl 157 65 - 199 mg/dL [facility] Comment:Diabetes: >=200 mg/d L plus symptoms BUN 15 8 - 18 mg/dL [facility] Creatinine 0.90 0.70 - 1.20 mg/dL [facility] Sodium 141 135 - 145 mmol/L [facility] Potassium 4.2 3.5 - 5.0 mmol/L [facility] Comment: Please note: ??Patients with WBC >100,000 may have falsely elevated Potassium levels. ??For accurate Potassium quantification in these patients send serum separator tube (gold top) for subsequent determinations. ??Contact the Clinical Chemistry Laboratory if there are any questions. Chloride 105 98 - 107 mmol/L [facility] CO2 21(L) 22 - 31 mmol/L [facility] Anion Gap 15 5 - 15 mmol/L [facility] Calcium 8.8 8.5 - 10.5 mg/dL [facility] Estimated GFR 65 >=60 mL/min/1. 73 m?? [facility] Comment: The eGFR was calculated using the CKD-EPI equation. As with all creatinine based estimates of kidney function, eGFR values calculated with the CKD-EPI equation are not accurate in patients with acute kidney failure, extremes of body mass or the acutely ill. [email or web address]/[facility] eGFR 75 >=60 mL/min/1. 73 m?? [facility] Comment: The eGFR was calculated using the CKD-EPI equation. As with all creatinine based estimates of kidney function, eGFR values calculated with the CKD-EPI equation are not accurate in patients with acute kidney failure, extremes of body mass or the acutely ill. [email or web address] Blood specimen (specimen) 04/02/2018 3:13 AM EDT 04/02/2018 3:46 AM EDT Narrative Resulting Agency Comment Spec In Lab Noemi Hudson MD CHEMISTRY ORDERABLE S Performing Organization Address City/State/[facility] Co de Phone Number [facility] [place] [phone] * XR Pelvis (Generic) (04/01/2018 4:49 PM [...] supine radiograph of the pelvis from 04/01/2018 [id number] hours. COMPARISON: 03/28/2018. FINDINGS: Revision right hip arthroplasty hardware appears well-seated.No immediate postoperative complication such as periprosthetic fractureseen. Unchanged appearance of the bony pelvic ring and the post arthroplasty appearance of the left hip. IMPRESSION No immediate right hip revision arthroplasty complication identified. Noemi Hudson MD IMG DX ORDERABLES * Anaerobic Culture (04/01/2018 3:05 PM EDT) Anaerobic Culture No anaerobic organisms isolated [facility] Joint specimen (specimen) RIGHT HIP REGION STRUCTURE / Unknown 04/01/2018 3:05 PM EDT 04/01/2018 4:07 PM EDT Comment:RIGHT HIP CAPSULE. Narrative Resulting Agency Comment Spec In Lab Noemi Hudson MD MICROBIOLOGY - GENE RAL ORDERABLES Performing Organization Address [facility] Co de Phone Number [facility] [place] [address] * Joint Culture (04/01/2018 3:05 PM EDT) Joint Culture No growth [facility] Gram Stain No Neutrophils seen. No microorganisms seen. [facility] Joint specimen (specimen) RIGHT HIP REGION STRUCTURE / Unknown 04/01/2018 3:05 PM EDT 04/01/2018 4:07 PM EDT Comment:RIGHT HIP CAPSULE. Narrative Resulting Agency Comment Spec In Lab Noemi Hudson MD MICROBIOLOGY - GENE RAL ORDERABLES Performing Organization Address City/[facility]/ZIP Co de Phone Number [facility] [place] [address] * Anaerobic Culture (04/01/2018 2:20 PM EDT) Anaerobic Culture No anaerobic organisms isolated [facility] Joint fluid specimen (specimen) RIGHT HIP REGION STRUCTURE / Unknown 04/01/2018 2:20 PM EDT 04/01/2018 2:48 PM EDT Comment:RIGHT HIP FLUID. Narrative Resulting Agency Comment Spec In Lab Noemi Hudson MD MICROBIOLOGY - GENE RAL ORDERABLES Performing Organization Address [facility] Co de Phone Number [facility] [place] [address] * Joint Culture (04/01/2018 2:20 PM EDT) Joint Culture No growth at 14 days. [facility] Gram Stain Cytocentrifuge Gram Stain performed Neutrophils seen No microorganisms seen. [facility] Joint fluid specimen (specimen) RIGHT HIP REGION STRUCTURE / Unknown 04/01/2018 2:20 PM EDT 04/01/2018 2:48 PM EDT Comment:RIGHT HIP FLUID. Narrative Resulting Agency Comment Spec In Lab Noemi Hudson MD MICROBIOLOGY - GENE RAL ORDERABLES Performing Organization Address [facility] Co de Phone Number [facility] [place] [address] * Cell Count Body Fluid Hip, Right (04/01/2018 2:20 PM EDT) Spec Type BF Hip, Right [facility] Color BF Brown [facility] Appearance BF Cloudy [facility] WBC BF Ct 787 /[facility] Comment: Guideline listed below apply [...] by Miryam Holm. Polymorph % 27 % [facility] Comment: Polymorphonuclear cell percent and absolute values may contain Neutrophils, Eosinophils, and Basophils. Body fluid smear will be scanned manually for concordance. Mononuc % 73 % [facility] Comment: Mononuclear cell percent and absolute values may contain Lymphocytes and Monocytes. Body fluid smear will be scanned manually for concordance. Polymorph BF ABS 209 /[facility] Comment: Polymorphonuclear cell percent and absolute values may contain Neutrophils, Eosinophils, and Basophils. Body fluid smear will be scanned manually for concordance. Mononuc ABS 578 /[facility] Comment: Mononuclear cell percent and absolute values may contain Lymphocytes and Monocytes. Body fluid smear will be scanned manually for concordance. Swab from hip region (specimen) 04/01/2018 2:20 PM EDT 04/01/2018 2:36 PM EDT Narrative Resulting Agency Comment Spec In Lab Noemi Hudson MD BODY FLUIDS AND STO OLS ORDERABLES [facility] [place] [address] documented in this encounter Visit Diagnoses Diagnosis [...] Unit) documented in this encounter Care Teams Manager Distribution Center Relationship Specialty Start Date End Date Baylee Elena, NIKKI PCP - General Family Medicine 03/25/18 03/01/22 documented as of this encounter
--- OUTSIDE RECORDS SUMMARY | 2024-01-29 04:54 | XMS_ITS | Encounter Summary ---
[place] [address] Care Team Providers Care Prepress Supervisor Name Role Phone Baylee Elena APRN Primary Care Provider [phone] Reason for Visit * Reason Onset Date Comments Pre Procedure Call 03/28/2018 Encounter Details Date Type Department Care Team (Late st Contact Info) Description 03/28/2018 [place] [id number] Noemi Hudson MD [facility] [place] [address] Pre Procedure Call Social History Tobacco Use [...] left a message for patient to call [phone] directly and schedule surgery with Dr. Hudson on 04/01/18. documented in this encounter Plan of Treatment Upcoming Encounters Date Type Department Care Team (Late st Contact Info) Description 02/26/2024 10:15 AM EDT Office Visit Endocrinology at [facility] [place] [address] Cornell Harper MD [facility] [place] [address] documented as of this encounter Visit Diagnoses Not on filedocumented in this encounter Care Teams Prepress Supervisor Relationship Specialty Start Date End Date Baylee Elena APRN PCP - General Family Medicine 03/25/18 03/01/22 documented as of this encounter
--- OUTSIDE RECORDS SUMMARY | 2024-01-29 04:54 | XMS_ITS | Encounter Summary ---
Author Organization [facility] Address [facility] [place] [address] Care Team Providers Care Public Works Technician Name Role Phone Ulices Baylee Mayorga APRN Primary Care Provider [phone] Reason for Visit * Auth/Cert Specialty Diagnoses / Procedures Referred By Calin vasquez Referred To Contact Diagnoses Prosthetic hip implant failure, initial encounter Right AMBER mechanical failure Procedures PRO REVISE TOTAL HIP REPLACEMENT @TOTAL HIP REVISION ARTHROPLASTY, COMPLETE (WRVU 30.28) Referral ID Status Reason Start Date Expiration Date Visits Re quested Visits Authorized [id number] 1 1 Encounter Details Date Type Department Care Team (Latest Contact Info) Description 04/01/2018 10:56 AM EDT - 04/02/2018 5:37 PM EDT Hospital Encounter 3 [place] [address] Noemi Hudson MD [facility] [place] [address] Prosthetic hip implant failure, initial encounter; Pain [...] encounter Discharge Summaries * Lindsey Rice P, AERIAL PHOTOGRAPH INTERPRETER - 04/01/2018 9:42 AM EDT Discharge Summary Patient Name: Alyssa Burnham Patient Age: 72 y.o. Language: Sierra Leonean Race: White Ethnicity: Not nor Admit date: 04/01/2018 Discharge date and time: 04/02/2018 Attending Physician: Neomi Hudson MD Discharge Physician: Noemi Hudson MD Follow-up Recommendations for Providers: See discharge instructions for additional details. Future Appointments Date Time Provider Department Center 04/30/2018 3:00 PM [facility] 04/30/2018 4:00 PM Noemi Hudson MD [facility] Inpatient Provider Contact Information: Noemi Hudson MD Orthopedics: [phone] After hours and weekends, call [facility] Dry Talc Racker, , and have the Orthopedic resident paged. [...] bowel movement. You can also take an cfvr-wnd-bfzzxjt medication, Miralax if needed to combat constipation. [...] as much as possible. Call your doctor ([phone]) if you develop: 1. Fever greater than 100.5 2. Severe nausea or vomiting 3. Increasing pain that is not controlled by pain medications 4. Increasing redness, swelling, or drainage from incisions 5. Change in sensation FOLLOW-UP APPOINTMENTS: 1. You will have follow-up appointments at [facility] as indicated below in Future Appointment and Orders. 2. You will need to have x-rays prior to your follow-up appointment on 04/30/2018. Please come to Radiology, desk 3T, 1 hour BEFORE that appointment for these x-rays. Future Appointments Date Time Provider Department Center 04/30/2018 3:00 PM [facility] DX ROOM 6 [facility] 04/30/2018 4:00 PM Noemi Hudson MD [facility] [address] [place] [address] If you have questions or concerns: Sunday through Sunday, 8 AM - 5 PM, please call Noemi Tristan MD's office at . If it is after 5 PM, the weekend, or holidays, please call and ask to speak with theOrthopedic resident on-call. General Instructions None Future Appointments and Orders Future Appointments Provider Department Dept Phone 04/30/2018 3:00 PM [facility] DX ROOM 6 [facility] [place] [phone] Please go to Fitter Up Area 3T ([place] Location). 04/30/2018 4:00 PM Noemi Hudson MD Orthopaed[facility] at [place] [phone] Future Orders Complete By Expires Referral to Home Health - at DISCHARGE [[id number] CPT(R)] As directed Process Instructions: Scheduling Instructions: Comments: DOCUMENTATION FOR VNA SERVICES (INCLUDING THOSE PATIENTS WITH MEDICARE COVERAGE REQUIRING HOME VNA SERVICES AND/OR HOSPICE SERVICES) Alyssa Burnham Discharge to own home: [phone] [facility] [address] Mobile Not on file. Engineering Instructor's Name: herself with neighbors' assist In discussion with the attending physician, it is certified that this patient is under their care and that they, or a nurse practitioner, clinical nurse specialist or physician's insurance administrative assistant who is working directly with them, [...] for services as follows: Home Health Agency: [facility]. PHONE: [phone] FAX: [phone] Home care orders for Revision Total Hip [...] PT services only then please refer for Mcfp(SN) eval if indicated on admission visit Hip [...] contact info: Primary Care Provider: Baylee Elena, AERIAL PHOTOGRAPH INTERPRETER [phone] Discharge References/Attachments None documented in this encounter Discharge Instructions * Patient Instructions* Lindsey Rice, AERIAL PHOTOGRAPH INTERPRETER - 04/01/2018 9:46 AM EDT Activity: 1. [...] bowel movement. You can also take an vfqp-rgp-ppkrxls medication, Miralax if needed to combat constipation. [...] as much as possible. Call your doctor ([phone]) if you develop: 1. Fever greater than 100.5 2. Severe nausea or vomiting 3. Increasing pain that is not controlled by pain medications 4. Increasing redness, swelling, or drainage from incisions 5. Change in sensation FOLLOW-UP APPOINTMENTS: 1. You will have follow-up appointments at [facility] as indicated below in Future Appointment and Orders. 2. You will need to have x-rays prior to your follow-up appointment on 04/30/2018. Please come to Radiology, desk 3T, 1 hour BEFORE that appointment for these x-rays. Future Appointments Date Time Provider Department Center 04/30/2018 3:00 PM [facility] DX ROOM 6 [facility] 04/30/2018 4:00 PM Noemi Hudson MD [facility] [place] [facility] If you have questions or concerns: [...] Time Provider Department Center 04/30/2018 3:00 PM [facility] DX ROOM 6 [facility] 04/30/2018 4:00 PM Noemi Hudson MD [facility] [place] [facility] Associated attestation - Noemi Hudson MD - 04/02/2018 8:26 AM EDT I independently evaluated and saw the patient, and I agree with the above note. Noemi Hudson MD * Cristhian Martel RN - 04/01/2018 6:47 PM EDT Patient [facility] via [facility] from PACU s/p R hip revision. [...] Time Provider Department Center 04/30/2018 3:00 PM [facility] DX ROOM 6 [facility] [...] Dr. Morales 2008 Z96.641 ??? 02/04/2014 Dr. Holalnd Left Anterior AMBER M16.12 ??? Prosthetic hip [...] APPROACH performed by Lance Holland MD at [facility] Home Medications: Facility-Administered Medications Prior [...] 30.28) [facility] ??? PRO TOTAL HIP ARTHROPLASTY 02/04/2014 @TOTAL HIP ARTHROPLASTY, ANTERIOR APPROACH performed by Lance Holland MD at [facility] Social History: Patient is a and lives alone in [place], [place] w/ 2 separate platform steps to [...] precs. Understands reason and importanceof using leg credit risk manager to assist abd during supine>sit Skin and soft Tissue: silver mepilex dressing R posterolateral hip CDI Functional Mobility: Supine><sit: out toward R side of flat bed, back in same side, using leg credit risk manager to self assist Sit><stand: w/ FWW w/ [...] Pt is POD# 1 R posterior lat ABMER revision presenting w/ tolerable level of pain [...] and home management ARIELLA MCELROY, PT Pager: [phone] PT Evaluation Code Rationale: ?? Diagnosis & [...] functional performance as outlined in this evaluation. [facility] 6 Clicks/stairs Basic Mobility Inpatient Short Form [...] with assist, home with home health Pager: [phone] Reed Kilpatrick OT 04/02/2018 Occupational Therapy Rehabilitation [...] Living Environment Comment Pt lives alone in [place], [place]. There are 2 ASHLEY into 1 level where pt plans to sleep in a flat bed, has a raised toilet, walk-in shower w/ a ASHLEY, grab bars, and a shower bench. 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 Self-Care Dominant Hand right Vision Assessment/Intervention Additional [...] Mobility Assessment/Treatment Assistive Device (Bed Mobility) leg credit risk manager Gsgczq-qn-Dlq Ponce (Bed Mobility) supervision required;verbal cues required;nonverbal cues required (demo/gesture) Impairments (Bed Mobility) pain;ROM (range of motion) decreased;strength decreased;balance impaired Comment (Bed Mobility) Pt performed bed mobility w/ increased time and verbal cues for technique. flat bed Transfer Assessment/Treatment Bed-Chair Ponce (Transfers) supervision required;verbal cues required Chair-Bed Ponce (Transfers) supervision required;verbal cues required Ljq-Opadk-Eqe Assistive Device (Transfers) rolling walker Ponce (Sit-Stand Transfers) supervision required;verbal cues required Ponce (Stand-Sit Transfers) supervision required;verbal cues required Mnv-Khthq-Sua Assistive Device (Transfers) rolling walker Ponce (Toilet Transfers) supervision required;verbal cues required Assistive Device (Toilet Transfers) bedside commode;rolling walker Maintain Weight Bearing Status (Transfers) able to maintain weight bearing status Impairments (Transfers) pain;ROM (range of motion) decreased;strength decreased;balance impaired Comment (Transfers) Pt performed sit<>stand w/ no overt LOB. Pt requried verbal cues to kick RLE out prior to sit<>stand initially, pt performing indepdently by end of session. Gait Assessment/Treatment Ponce (Gait) supervision required Assistive Device (Gait) rolling [...] understanding, taught backtechnique. Upper Body Dressing Assessment/Training Ponce Level (UB Dressing) set up required;independent Lower Body Dressing Assessment/Training Assistive Devices (LB Dressing) sock-aid;medicine teacher Position (LB Dressing) sitting;standing Ponce Level (LB Dressing) supervision required;verbal cues required Impairments (LB Dressing) pain;ROM (range of motion) decreased;strength decreased;balance impaired Comment (LB Dressing) Pt required increased time and verbal cuse to perform LB dressing w/ AE. Pt issued and educated sock-aid and medicine teacher. Toileting Assessment/Training Assistive Devices (Toileting) bedside commode Position (Toileting) sitting;standing Ponce Level (Toileting) conditional independence Impairments (Toileting) pain;ROM [...] Operative Note Patient Name: Alyssa Burnham : [id number] MR#: [id number] Case Date: 04/01/2018 Surgeon: Surgeon(s) and Role: [...] Hudson MD - 04/01/2018 3:42 PM EDT [facility] Operative Note Patient Name: Alyssa Burnham : [id number] MR#: [id number] Case Date: 04/01/2018 Surgeon: Surgeon(s) and Role: * Noemi Hudson MD - Primary * Sarah Mascorro MD - Resident-Surgeon Jad Preoperative Diagnosis: Mechanical failure of right hip replacement Postoperative Diagnosis: Same Procedure Performed: right Total Hip Arthroplasty Revision (CPT code 95280) Anesthesia: Spinal/Epidural IVF: 1100ml of crystaloid Estimated [...] Implant Name Type Inv. Item Serial No. Computer Applications Engineer Lot No. LRB No. Used Action INSER,ALTRX,10D,+[id number] ([id number]) (AUTOREQ) - [id number] IMPLANTS INSER,ALTRX,10D,+[id number] ([id number]) (AUTOREQ) [employer] HEMANTH [id number] Right 1 Implanted HEAD,FEM,S-ROM,ALUMA,32+0 ([id number]) - [id number] IMPLANTS HEAD,FEM,S- ROM,ALUMA,32+0 ([id number]) [employer] HEMANTH [id number] Right 1 Implanted documented in this encounter Plan of Treatment Upcoming Encounters Date Type Department Care Team (Late st Contact Info) Description 02/26/2024 10:15 AM EDT Office Visit Endocrinology at [facility] [place] [address] Cornell Harper MD [facility] [place] [address] documented as of this encounter Procedures Procedure [...] 3:13 AM EDT) Neutrophils % 90.7 % [facility] Neutr Abs (ANC) 7.83(H) 1.70 - 6.10 x10(3)/mc L [facility] Lymphocytes % 5.3 % [facility] Lymphocytes Abs 0.5(L) 0.9 - 3.2 x10(3)/mc L [facility] Monocytes % 3.6 % [facility] Monocyte Abs 0.3 0.3 - 0.9 x10(3)/[facility] Eosinophils % 0.0 % [facility] Eosinophils Abs 0.0 0.0 - 0.4 x10(3)/[facility] Basophils % 0.2 % [facility] Basophils Abs 0.0 0.0 - 0.1 x10(3)/[facility] Immature Gran % 0.20 % [facility] Comment: Immature granulocytes(IG's)percentage and absolute count will include metamyelocytes, myelocytes, and promyelocytes. Blood smears from CBCs yielding IG's will be scanned manually for concordance. If this scan disagrees with the automated IG or if promyelocytes are noted, a manual differential will be performed. Fay Gran Abs 0.02 0.00 - 0.04 x10(3)/[facility] Blood specimen (specimen) 04/02/2018 3:13 AM EDT 04/02/2018 3:46 AM EDT Narrative Resulting Agency Comment Spec In Lab Sarah Mascorro MD HEMATOLOGY ORDERABLE S [facility] [place] [address] * (ABNORMAL) Hemogram (04/02/2018 3:13 AM EDT) WBC 8.6 4.0 - 9.5 x10(3)/[facility] RBC 4.10 4.00 - 5.21 x10(6)/[facility] Hemoglobin 11.9 11.7 - 15.5 gm/dL [facility] Hematocrit 35.6(L) 35.7 - 45.8 % [facility] MCV 86.8 82.6 - 94.4 fL [facility] MCH 29.0 27.1 - 32.0 pg [facility] MCHC 33.4 31.7 - 35.0 gm/dL [facility] Platelets 203 145 - 357 x10(3)/[facility] RDWSD 42.4 37.0 - 46.0 [facility] RDWCV 13.2 11.5 - 14.1 % [facility] MPV 9.4 7.6 - 12.9 [facility] nRBC % Auto 0.0 % [facility] nRBC Abs Auto 0.000 0.000 - 0.000 x10(3)/[facility] Blood specimen (specimen) 04/02/2018 3:13 AM EDT 04/02/2018 3:46 AM EDT Narrative Resulting Agency Comment Spec In Lab Sarah Mascorro MD HEMATOLOGY ORDERABLE S [facility] [place] [address] * (ABNORMAL) Basic Metabolic Panel (non-fasting) (04/02/2018 [...] of body mass or the acutely ill. [email or web address]/[email or web address] eGFR 75 >=60 mL/min/1. 73 m?? [facility] Comment: The eGFR was calculated using the CKD-EPI equation. As with all creatinine based estimates of kidney function, eGFR values calculated with the CKD-EPI equation are not accurate in patients with acute kidney failure, extremes of body mass or the acutely ill. [email or web address] Blood specimen (specimen) 04/02/2018 3:13 AM EDT 04/02/2018 3:46 AM EDT Narrative Resulting Agency Comment Spec In Lab Noemi Hudson MD CHEMISTRY ORDERABLE S Performing Organization Address City/State/[facility] Co de Phone Number [facility] [place] [phone] * XR Pelvis (Generic) (04/01/2018 4:49 PM [...] supine radiograph of the pelvis from 04/01/2018 [id number] hours. COMPARISON: 03/28/2018. FINDINGS: Revision right hip [...] - GENE RAL ORDERABLES Performing Organization Address [facility]/ZIP Co de Phone Number [facility] [place] [address] * Joint Culture (04/01/2018 3:05 PM EDT) Joint Culture No growth [facility] Gram Stain No Neutrophils seen. No microorganisms seen. [facility] Joint specimen (specimen) RIGHT HIP REGION STRUCTURE / Unknown 04/01/2018 3:05 PM EDT 04/01/2018 4:07 PM EDT Comment:RIGHT HIP CAPSULE. Narrative Resulting Agency Comment Spec In Lab Noemi Hudson MD MICROBIOLOGY - GENE RAL ORDERABLES Performing Organization Address City/[facility]/ZIP Co de Phone Number [facility] [place] [address] * Anaerobic Culture (04/01/2018 2:20 PM EDT) Anaerobic Culture No anaerobic organisms isolated [facility] Joint fluid specimen (specimen) RIGHT HIP REGION STRUCTURE / Unknown 04/01/2018 2:20 PM EDT 04/01/2018 2:48 PM EDT Comment:RIGHT HIP FLUID. Narrative Resulting Agency Comment Spec In Lab Noemi Hudson MD MICROBIOLOGY - GENE RAL ORDERABLES Performing Organization Address City/[facility]/ZIP Co de Phone Number [facility] [place] [address] * Joint Culture (04/01/2018 2:20 PM EDT) [...] - GENE RAL ORDERABLES Performing Organization Address City/[facility]/ZIP Co de Phone Number [facility] [place] [address] * Cell Count Body Fluid Hip, Right (04/01/2018 2:20 PM EDT) Spec Type BF Hip, Right [facility] Color BF Brown [facility] Appearance BF Cloudy [facility] WBC BF Ct 787 /mcl [facility] Comment: Guideline listed below apply [...] by Miryam Holm. Polymorph % 27 % [facility] Comment: Polymorphonuclear cell percent and absolute values may contain Neutrophils, Eosinophils, and Basophils. Body fluid smear will be scanned manually for concordance. Mononuc % 73 % [facility] Comment: Mononuclear cell percent and absolute values may contain Lymphocytes and Monocytes. Body fluid smear will be scanned manually for concordance. Polymorph BF ABS 209 /[facility] Comment: Polymorphonuclear cell percent and absolute values may contain Neutrophils, Eosinophils, and Basophils. Body fluid smear will be scanned manually for concordance. Mononuc ABS 578 /[facility] Comment: Mononuclear cell percent and absolute values may contain Lymphocytes and Monocytes. Body fluid smear will be scanned manually for concordance. Swab from hip region (specimen) 04/01/2018 2:20 PM EDT 04/01/2018 2:36 PM EDT Narrative Resulting Agency Comment Spec In Lab Noemi Hudson MD BODY FLUIDS AND STO OLS ORDERABLES [facility] [place] [address] documented in this encounter Visit Diagnoses Diagnosis [...] Unit) documented in this encounter Care Teams Public Works Technician Relationship Specialty Start Date End Date Baylee Elena, AERIAL PHOTOGRAPH INTERPRETER PCP - General Family Medicine 03/25/18 03/01/22 documented as of this encounter
--- OUTSIDE RECORDS SUMMARY | 2024-01-29 04:54 | XMS_ITS | Encounter Summary ---
Author Organization [facility] Address [facility] [place] [address] Care Team Providers Care Event Lighting Specialist Name Role Phone Jamarcus Rodriguez MD Primary Care Provider [phone] Encounter Details Date Type Department Care Team (Late st Contact Info) Description 02/23/2014 Anti-Coag [place]phone [place] [phone] [facility] [place] [address] Social History Tobacco Use Types Packs/Day Years [...] 10:15 AM EDT Office Visit Endocrinology at [facility] [place] [place] [address] Cornell Harper MD [facility] [place] [address] documented as of this encounter Visit Diagnoses Not on filedocumented in this encounter Care Teams Event Lighting Specialist Relationship Specialty Start Date End Date Jamarcus Rodriguez MD [address] [place] [address] PCP - General 06/07/10 03/24/18 documented as of this encounter
--- OUTSIDE RECORDS SUMMARY | 2024-01-29 04:54 | XMS_ITS | Encounter Summary ---
[place] [address] Care Team Providers Care Inventory Control Manager Name Role Phone Jamarcus Rodriguez MD Primary Care Provider [phone] Encounter Details Date Type Department Care Team (Latest Contact Info) Description 03/02/2014 Anti-Coag Telephone [place] [address] Julio Rader RN Status post right hip [...] Therapeutic Range: 2.0-3.0 INR: 1.9 Drawn by: Hubbard Searcy [facility] Bleeding: Epistaxis Black tarry stools Gingival [...] 10:15 AM EDT Office Visit Endocrinology at [facility] [place] [address] Cornell Harper MD [facility] [place] [address] documented as of this encounter Procedures Procedure Name Priority Date/Time Associated Diagnosis Comments EXTERNAL LAB RESULTS Routine 03/02/2014 documented in this encounter Results * (ABNORMAL) External Lab Results (03/02/2014) POC INR 1.9(Passenger Train Braker al Lab) 0.9 - 1.1 Comment:[facility] Historical Provider CHEMISTRY ORDERAB LES documented in this encounter Visit Diagnoses Diagnosis Status post right hip replacement Hip joint replacement by other means documented in this encounter Care Teams Inventory Control Manager Relationship Specialty Start Date End Date Jamarcus Rodriguez MD [address] [place] [address] PCP - General 06/07/10 03/24/18 documented as of this encounter
--- OUTSIDE RECORDS SUMMARY | 2024-01-29 04:54 | XMS_ITS | Encounter Summary ---
[place] [address] Care Team Providers Care Clinical Systems Analyst Name Role Phone Jamarcus Rodriguez MD Primary Care Provider [phone] Encounter Details Date Type Department Care Team (Latest Contact Info) Description 02/12/2014 Anti-Coag Telephone [place] [address] Marley Tom, RN Status post right hip [...] Therapeutic Range: 2.0-3.0 INR: 2.1 Drawn by: Florence Gregg [facility] Patient states that she was [...] 10:15 AM EDT Office [place] [address] Cornell Harper MD [facility] [place] [address] documented as of this encounter Procedures Procedure Name Priority Date/Time Associated Diagnosis Comments EXTERNAL LAB RESULTS Routine 02/12/2014 documented in this encounter Results * (ABNORMAL) External Lab Results (02/12/2014) POC INR 2.1(Java Performance Engineer al Lab) 0.9 - 1.1 Comment:Greg Escobedo [facility] 02/12/2014 Historical Provider CHEMISTRY ORDERAB LES documented in this encounter Visit Diagnoses Diagnosis Status post right hip replacement Hip joint replacement by other means documented in this encounter Care Teams Clinical Systems Analyst Relationship Specialty Start Date End Date Jamarcus Rodriguez MD [address] [place] [address] PCP - General 06/07/10 03/24/18 documented as of this encounter
--- OUTSIDE RECORDS SUMMARY | 2024-01-29 04:54 | XMS_ITS | Encounter Summary ---
Author Organization [facility] [place] [address] Care Team Providers Care Coroner Forensic Technician Name Role Phone Ulices Baylee Mayorga APRN Primary Care Provider [phone] Reason for Visit * Reason Comments Follow-up Right hip pain incre ased Encounter Details Date Type Department Care Team (Late st Contact Info) Description 03/28/2018 10:30 AM EDT Office [place] [address] Noemi Hudson MD [facility] [place]THOPAED[place] [address] Prosthetic hip implant failure, initial encounter; Pain [...] failure and ceramic on metal. Questionnaire Responses: [facility] Surgical Postop Visit 03/27/2018 PROMIS-10 General Health [...] AM EDT Office Visit Endocrinology at [facility] [place] [address] Cornell Harper MD [facility] [place] [address] Pending Results Name Type Priority Associated Diagnoses [...] EDT) PTT 29 25 - 37 sec [facility] Comment: The PTT is NOT appropriate for heparin monitoring. Use the Anti-Xa level for heparin monitoring (HEP UFH) or LMWH monitoring (HEP LMW). A PTT less than 37 seconds generally indicates adequate hemostasis. Blood specimen (specimen) 03/28/2018 1:08 PM EDT 03/28/2018 1:36 PM EDT Narrative Resulting Agency Comment Spec In Lab Noemi Hudson MD HEMATOLOGY ORDERABL ES Performing Organization Address [facility] de Phone Number [facility] [place] [address] * Prothrombin Time (03/28/2018 1:08 PM EDT) PT 11.1 9.4 - 12.5 sec [facility] INR 1.0 [facility] Comment: An INR <2.0 indicates adequate [...] MD HEMATOLOGY ORDERABL ES Performing Organization Address [facility] de Phone Number [facility] [place] [address] * (ABNORMAL) Basic Metabolic Panel (non-fasting) (03/28/2018 1:08 PM EDT) Glucose Lvl 98 65 - 199 mg/dL [facility] Comment:Diabetes: >=200 mg/d L plus symptoms BUN 17 8 - 18 mg/dL [facility] Creatinine 0.83 0.70 - 1.20 mg/dL [facility] Sodium 141 135 - 145 mmol/L [facility] Potassium 4.0 3.5 - 5.0 mmol/L [facility] Comment: Please note: ??Patients with WBC >100,000 may have falsely elevated Potassium levels. ??For accurate Potassium quantification in these patients send serum separator tube (gold top) for subsequent determinations. ??Contact the Clinical Chemistry Laboratory if there are any questions. Chloride 103 98 - 107 mmol/L [facility] CO2 22 22 - 31 mmol/L [facility] Anion Gap 16(H) 5 - 15 mmol/L [facility] Calcium 9.4 8.5 - 10.5 mg/dL [facility] Estimated GFR 71 >=60 mL/min/1. 73 m?? [facility] Comment: The eGFR was calculated using the CKD-EPI equation. As with all creatinine based estimates of kidney function, eGFR values calculated with the CKD-EPI equation are not accurate in patients with acute kidney failure, extremes of body mass or the acutely ill. http://Milo/[facility] eGFR 83 >=60 mL/min/1. 73 m?? [facility] Comment: The eGFR was calculated using the CKD-EPI equation. As with all creatinine based estimates of kidney function, eGFR values calculated with the CKD-EPI equation are not accurate in patients with acute kidney failure, extremes of body mass or the acutely ill. http://Milo/[facility] Blood specimen (specimen) 03/28/2018 1:08 PM EDT 03/28/2018 1:36 PM EDT Narrative Resulting Agency Comment Spec In Lab Noemi Hudson MD CHEMISTRY ORDERABLE S [facility] [place] [address] documented in this encounter Visit Diagnoses Diagnosis Prosthetic hip implant failure, initial encounter Pain of right lower extremity Status post right hip replacement, Dr. Morales 2008 Hip joint replacement by other means documented in this encounter Care Teams Coroner Forensic Technician Relationship Specialty Start Date End Date Baylee Elena APRN PCP - General Family Medicine 03/25/18 03/01/22 documented as of this encounter
--- OUTSIDE RECORDS SUMMARY | 2024-01-29 04:54 | XMS_ITS | Encounter Summary ---
Author Organization [facility] Address [facility] [place] [address] Care Team Providers Care Phonograph Mechanic Name Role Phone Ulices Baylee Mayorga APRN Primary Care Provider [phone] Encounter Details Date Type Department Care Team (Latest Contact Info) Description 04/30/2018 2:31 PM EDT - 04/30/2018 11:59 PM EDT Hospital Encounter XRay at [address] [place] [address] Noemi Hudson MD [facility] [place] [address] Prosthetic hip implant failure, initial encounter; Pain [...] AM EDT Office Visit Endocrinology at [facility] [place] [address] Cornell Harper MD [facility] [place] [address] documented as of this encounter Procedures Procedure [...] 2013 and slightly more apparent than on [id number] study. IMPRESSION 1. Right revision AMBER without [...] extremity documented in this encounter Care Teams Phonograph Mechanic Relationship Specialty Start Date End Date Baylee Elena, RADIOTELEGRAPH OPERATOR PCP - General Family Medicine 03/25/18 03/01/22 documented as of this encounter
--- OUTSIDE RECORDS SUMMARY | 2024-01-29 04:54 | XMS_ITS | Encounter Summary ---
Author Organization [facility] [place] [address] Care Team Providers Care Tube Drawing Supervisor Name Role Phone Baylee Elena APRN Primary Care Provider [phone] Reason for Visit * Auth/Cert Specialty Diagnoses / Procedures Referred By Calin vasquez Referred To Contact Diagnoses Prosthetic hip implant failure, initial encounter Right AMBER mechanical failure Procedures PRO REVISE TOTAL HIP REPLACEMENT @TOTAL HIP REVISION ARTHROPLASTY, COMPLETE (WRVU 30.28) Referral ID Status Reason Start Date Expiration Date Visits Re quested Visits Authorized [id number] 1 1 Encounter Details Date Type Department Care Team (Late st Contact Info) Description 04/01/2018 1:05 PM EDT Anesthesia Event [place] [phone] Pedro Hoffman MD [facility] [place] [address] Russell Winston MD [facility] [place] [address] Anesthesia Record Procedure Summary Procedure Name Responsible Anesthesiologist Anesthesia Start Time Anesthesia Stop Time @TOTAL HIP REVISION ARTHROPLASTY, COMPLETE (WRVU 30.28) (Right: Hip) Pedro Hoffman MD 04/01/18 1305 04/01/18 1612 Events Date Time Event Comment 04/01/2018 1228 1305 AN Verify 1305 Start 1305 An Start Data 1325 Spinal 1339 Anesthesia Ready 1512 Break/Relief In IVY RICE I [employer] 1525 Break/Relief Out 1604 an stop data [...] Epidural 04/01/18; 1601; alexandra figueroa; Jeremy Smith [employer]AGE INS[employer]; no longer indicated; Catheter intact, No complications; [...] Hoffman MD - 04/01/2018 4:14 PM EDT [facility] Department of Anesthesiology Post-procedure Note Patient: Alyssa BlandAmi Procedure Summary Date Anesthesia Start Anesthesia Stop Room / Location 04/01/18 1305 1612 [facility] OR [facility] MAIN OR Procedure Diagnosis Surgeon Responsible Provider @TOTAL HIP REVISION ARTHROPLASTY, COMPLETE (WRVU 30.28) (Right Hip); MODIFIER PINNACLE ACETABULUM DEPUY (N/A Hip); MODIFIER S-ROM FEMORAL STEM DEPUY (N/A Hip) Prosthetic hip implant failure, initial encounter (Right AMBER mechanical failure) Noemi Hudson MD Chow, Vinca W, MD All Anesthesia Providers: Anesthesiologist: Pedro Hoffman MD [employer]: Jeremy Smith CRNA Most Recent Vitals: 04/01/18 1608 BP: 132/63 Pulse: 69 Resp: 16 Temp: 36.4 ??C (97.5 ??F) SpO2: 96% Pain Patient Location: PACU/[facility] Level of Consciousness: Awake and Alert Pain [...] ml Fentanyl 25 mcg Events/Notes Events: None Resident/[employer]: JEREMY SMITH Second Resident/SALVAGE INS[employer]: Fellow: Attending Physician: ~~~~~~~~~~~~~~~~~~~~~~~~~~~~~~~~~~~~~~~~~~~~~~~~~~~~~~~~~~~~ * Anesthesia Preprocedure Evaluation - Pedro Hoffman MD - 04/01/2018 11:14 AM EDT Pre-Anesthesia Evaluation for: Alyssa Bland-Obde a 72 y.o. female. Procedure(s): @TOTAL HIP [...] APPROACH performed by Lance Holland MD at [facility] MAIN OR Social History Substance Use [...] consented to blood products. Plan discussed with SAL[employer]AGE INS[employer]. PAT Staff Note documented in this encounter Plan of Treatment Upcoming Encounters Date Type Department Care Team (Late st Contact Info) Description 02/26/2024 10:15 AM EDT Office Visit Endocrinology at [facility] [place] [address] Cornell Harper MD [facility] [place] [address] documented as of this encounter Procedures Procedure [...] insertion: L3-4 Needle approach: midline Needle Type: Jaad Tinsley Needle insertion depth when KIMBERLY achieved: [...] ml Fentanyl 25 mcg Events/Notes Events: None Resident/SALVAGE INSPECTOR [employer]: JEREMY SMITH Second Resident/SALVAGE INSPECTOR [employer]: Fellow: Attending Physician: ~~~~~~~~~~~~~~~~~~~~~~~~~~~~~~~~~~~~~~~~~~~~~~~~~~~~~~~~~~~~ documented in this [...] mg documented in this encounter Care Teams Tube Drawing Supervisor Relationship Specialty Start Date End Date Baylee Elena APRN PCP - General Family Medicine 03/25/18 03/01/22 documented as of this encounter
--- OUTSIDE RECORDS SUMMARY | 2024-01-29 04:54 | XMS_ITS | Encounter Summary ---
Author Organization [facility] Address [facility] [place] [address] Care Team Providers Care Formulation Scientist Name Role Phone Jamarcus Rodriguez MD Primary Care Provider [phone] Encounter Details Date Type Department Care Team (Latest Contact Info) Description 01/22/2015 10:37 AM EDT - 01/22/2015 11:59 PM EDT Hospital Encounter XRay at [address] [place] [phone] Aftercare following joint replacement Social History Tobacco [...] Center, [place], [facility] [place] [address] Cornell Harper MD [facility] [place] [address] documented as of this encounter Procedures Procedure [...] replacement documented in this encounter Care Teams Formulation Scientist Relationship Specialty Start Date End Date Jamarcus Rodriguez MD [address] [place] [address] PCP - General 06/07/10 03/24/18 documented as of this encounter
--- OUTSIDE RECORDS SUMMARY | 2024-01-29 04:54 | XMS_ITS | Encounter Summary ---
Author Organization [facility] Address [facility] [place] [address] Care Team Providers Care Long Chain Quiller Tender Name Role Phone Jamarcus Rodriguez MD Primary Care Provider [phone] Encounter Details Date Type Department Care Team (Late st Contact Info) Description 03/11/2014 9:37 AM EDT - 03/11/2014 11:59 PM EDT Hospital Encounter XRay at [address] [place] [address] Pain in limb Social History Tobacco Use [...] 10:15 AM EDT Office Visit Endocrinology at [facility] [place] [address] Cornell Harper MD [facility] [place] [address] documented as of this encounter Procedures Procedure [...] limb documented in this encounter Care Teams Long Chain Quiller Tender Relationship Specialty Start Date End Date Jamarcus Rodriguez MD [address] [place] [id number] PCP - General 06/07/10 03/24/18 documented as of this encounter
--- OUTSIDE RECORDS SUMMARY | 2024-01-29 04:54 | XMS_ITS | Encounter Summary ---
[place] [address] Care Team Providers Care Commercial Horticulture Instructor Name Role Phone Jamarcus Rodriguez MD Primary Care Provider [phone] Encounter Details Date Type Department Care Team (Latest Contact Info) Description 02/16/2014 Anti-Coag Telephone [place] [address] Julio Rader RN Status post right hip [...] Visit Endocrinology at [facility] [place] [address] Cornell Harper [place] [address] documented as of this encounter Procedures Procedure Name Priority Date/Time Associated Diagnosis Comments EXTERNAL LAB RESULTS Routine 02/16/2014 documented in this encounter Results * (ABNORMAL) External Lab Results (02/16/2014) POC INR 2.1(Document Restorer al Lab) 0.9 - 1.1 Comment:[facility] Historical Provider CHEMISTRY ORDERAB LES documented in this encounter Visit Diagnoses Diagnosis Status post right hip replacement Hip joint replacement by other means documented in this encounter Care Teams Commercial Horticulture Instructor Relationship Specialty Start Date End Date Jamarcus Rodriguez MD [address] [place] [address] PCP - General 06/07/10 03/24/18 documented as of this encounter
--- OUTSIDE RECORDS SUMMARY | 2024-01-29 04:54 | XMS_ITS | Encounter Summary ---
[place] [address] Care Team Providers Care Conical Mixer Name Role Phone Jamarcus Rodriguez MD Primary Care Provider [phone] Encounter Details Date Type Department Care Team (Latest Contact Info) Description 02/26/2014 Anti-Coag Telephone [place] [address] Betty Langford, RN Status post [...] Therapeutic Range: 2.0-3.0 INR: 2.2 Drawn by: [facility] [place] [facility] Bleeding: Epistaxis Black tarry stools Gingival [...] 10:15 AM EDT Office Visit Endocrinology at [facility] [place] [address] Cornell Harper MD [facility] [place] [id number] documented as of this encounter Procedures Procedure [...] means documented in this encounter Care Teams Conical Mixer Relationship Specialty Start Date End Date Jamarcus Rodriguez MD [address] [place] [address] PCP - General 06/07/10 03/24/18 documented as of this encounter
--- OUTSIDE RECORDS SUMMARY | 2024-01-29 04:54 | XMS_ITS | Encounter Summary ---
[place] [address] Care Team Providers Care Investment Counselor Name Role Phone Samnicholas Baylee Nicholas JORDAN Primary Care Provider [phone] Encounter Details Date Type Department Care Team (Latest Contact Info) Description 03/28/2018 12:40 PM EDT Clinical [place] [address] Prosthetic hip implant failure, initial [...] 10:15 AM EDT Office Visit Endocrinology at [facility] [place] [address] Cornell Harper MD [facility] [place] [address] Pending Results Name Type Priority Associated Diagnoses [...] (Bezet) 425 ms MUSE SYSTEM Calculated P [place] 50 degrees MUSE SYSTEM Calculated R [place] 30 degrees MUSE SYSTEM Calculated T [place] 29 degrees MUSE SYSTEM INTERPRETATION Normal sinus [...] extremity documented in this encounter Care Teams Investment Counselor Relationship Specialty Start Date End Date Baylee Elena APRN PCP - General Family Medicine 03/25/18 03/01/22 documented as of this encounter
--- OUTSIDE RECORDS SUMMARY | 2024-01-29 04:54 | XMS_ITS | Encounter Summary ---
Author Organization [facility] Address [facility] [place] [address] Care Team Providers Care Pumping Station Supervisor Name Role Phone Ulices Baylee Mayorga APRN Primary Care Provider [phone] Encounter Details Date Type Department Care Team (Latest Contact Info) Description 03/28/2018 9:13 AM EDT - 03/28/2018 11:59 PM EDT Hospital Encounter XRay at [address] [place] [address] Noemi Hudson MD [facility] [address] History of hip replacement, total, bilateral; Right [...] Center, [place], [facility] [place] [address] Cornell Harper MD [facility] [place] [address] documented as of this encounter Procedures Procedure [...] thigh documented in this encounter Care Teams Pumping Station Supervisor Relationship Specialty Start Date End Date Baylee Elena APRN PCP - General Family Medicine 03/25/18 03/01/22 documented as of this encounter
--- OUTSIDE RECORDS SUMMARY | 2024-01-29 04:54 | XMS_ITS | Encounter Summary ---
[place] [address] Care Team Providers Care Collection Team Lead Name Role Phone Jamarcus Rodriguez MD Primary Care Provider [phone] Reason for Visit * Reason Onset Date Comments Medication Refill 02/17/2014 Encounter Details Date Type Department Care Team (Late st Contact Info) Description 02/17/2014 Ref[place] [address] Lance Holland MD [address] [place] [address] Social History Tobacco Use Types Packs/Day Years [...] Endocrinology at [facility] [place] [address] Cornell Harper MD [facility] [place] [address] documented as of this encounter Visit Diagnoses Not on filedocumented in this encounter Care Teams Collection Team Lead Relationship Specialty Start Date End Date Jamarcus Rodriguez MD [address] [place] [address] PCP - General 06/07/10 03/24/18 documented as of this encounter
--- OUTSIDE RECORDS SUMMARY | 2024-01-29 04:54 | XMS_ITS | Encounter Summary ---
[place] [address] Care Team Providers Care Cuff Knitter Name Role Phone Jamarcus Rodriguez MD Primary Care Provider [phone] Reason for Visit * Reason Onset Date Comments VNA Calls 03/03/2014 Encounter Details Date Type Department Care Team (Late st Contact Info) Description 03/03/2014 Telephone [place] [address] Lance Holland MD [address] [place] [address] VNA Calls Social History Tobacco Use Types [...] of caller: ALONDRA POPE RN PLEASE CALL [phone], ASK FOR IZZY ARANA LAST COUMADIN DOSE IS TOMORROW. DOES SHE NEED ANOTHER PT/INR DONE AFTER THAT DOSE? THEY WOULD LIKE TO D/C HER TOMORROW IF NOT. documented in this encounter Plan of Treatment Upcoming Encounters Date Type Department Care Team (Late st Contact Info) Description 02/26/2024 10:15 AM EDT Office Visit Endocrinology at [facility] [place] [address] Cornell Harper [place] [address] documented as of this encounter Visit Diagnoses Not on filedocumented in this encounter Care Teams Cuff Knitter Relationship Specialty Start Date End Date Jamarcus Rodriguez MD [address] [place] [address] PCP - General 06/07/10 03/24/18 documented as of this encounter
--- OUTSIDE RECORDS SUMMARY | 2024-01-29 04:54 | XMS_ITS | Encounter Summary ---
[place] [address] Care Team Providers Care Emergency Department Coordinator Name Role Phone Jamarcus Rodriguez MD Primary Care Provider [phone] Encounter Details Date Type Department Care Team (Latest Contact Info) Description 02/19/2014 Anti-Coag Telephone [place] [address] Betyt Langford, RN Status post right hip replacement [...] Therapeutic Range: 2.0-3.0 INR: 1.5 Drawn by: [facility] [place] [facility] Patient presents with no signs [...] Visit Endocrinology at [facility] [place] [address] Cornell Harper MD [facility] [place] [address] documented as of this encounter Procedures Procedure [...] means documented in this encounter Care Teams Emergency Department Coordinator Relationship Specialty Start Date End Date Jamarcus Rodriguez MD [address] [place] [address] PCP - General 06/07/10 03/24/18 documented as of this encounter
--- OUTSIDE RECORDS SUMMARY | 2024-01-29 04:54 | XMS_ITS | Encounter Summary ---
[place] [address] Care Team Providers Care Tableau Analyst Name Role Phone Jamarcus Rodriguez MD Primary Care Provider [phone] Encounter Details Date Type Department Care Team (Latest Contact Info) Description 02/09/2014 Anti-Coag Telephone [place] [address] Julio Rader RN Status post right hip [...] Therapeutic Range: 2.0-3.0 INR: 1.7 Drawn by: [facility] Patient states that she was instructed to [...] Visit Endocrinology at [facility] [place] [address] Cornell Harper MD [facility] [place] [address] documented as of this encounter Procedures Procedure Name Priority Date/Time Associated Diagnosis Comments EXTERNAL LAB RESULTS Routine 02/09/2014 documented in this encounter Results * (ABNORMAL) External Lab Results (02/09/2014) POC INR 1.7(Technician Biological Health al Lab) 0.9 - 1.1 Comment:[facility] Historical Provider CHEMISTRY ORDERAB LES documented in this encounter Visit Diagnoses Diagnosis Status post right hip replacement Hip joint replacement by other means documented in this encounter Care Teams Tableau Analyst Relationship Specialty Start Date End Date Jamarcus Rodriguez MD [address] [place] [address] PCP - General 06/07/10 03/24/18 documented as of this encounter
--- OUTSIDE RECORDS SUMMARY | 2024-01-29 04:54 | XMS_ITS | Encounter Summary ---
[place] [address] Care Team Providers Care Flexographic Press Operator Name Role Phone Jamarcus Rodriguez MD Primary Care Provider [phone] Reason for Visit * Reason Comments Left Hip Pain 02/04/2014 L THR ant eriot Encounter Details Date Type Department Care Team (Late st Contact Info) Description 05/06/2014 9:00 AM EDT Office [place] [address] Betty Dong APRN [facility] [place] [address] 02/04 Dr. Holland Left Anterior AMBER (Primary [...] this encounter Progress Notes * Betty Dong, CHISEL GRINDER - 05/06/2014 9:45 AM EDT Subjective: Chief Complaint: Second planned post op for left hip AMBER Pertinent Surgical History: Date: February 04, 2014 Surgeon: Lance Holland MD Planting Material Unloader: Pre-operative diagnosis: Left hip osteoarthritis Surgical Procedure Performed: Injection left hip with 10 cc marcaine 0.25% with epi, into skin and subcutaneous tissues Left total hip arthroplasty, anterior Hueter approach with Hudson table Left hip intraoperative radiologic examination Components Used: Depuy Corail stem, size 11, standard Clare cup, 50 mm, solid 32 mm ID, [...] She is getting ready to travel to [place] to care for her Parents. She is [...] Therapyfor post-operative rehabilitation and transition to a [facility] when she is ready. Full [...] Endocrinology at [facility] [place] [address] [address] Harper MD [facility] [address] documented as of this encounter Visit Diagnoses Diagnosis 02/04 Dr. Holland Left Anterior AMBER- Primary Primary localized osteoarthrosis, pelvic region and thigh documented in this encounter Care Teams Flexographic Press Operator Relationship Specialty Start Date End Date Jamarcus Rodriguez MD [address] [place] [address] PCP - General 06/07/10 03/24/18 documented as of this encounter
--- OUTSIDE RECORDS SUMMARY | 2024-01-29 04:54 | XMS_ITS | Encounter Summary ---
[place] [address] Care Team Providers Care Craft Worker Name Role Phone Samnicholas Baylee Nicholas JORDAN Primary Care Provider [phone] Reason for Visit * Reason Onset Date Comments Other 04/03/2018 Encounter Details Date Type Department Care Team (Late st Contact Info) Description 04/03/2018 Telephone [place] [phone] Chelsi Bermudez RMA Other Social History Tobacco [...] Visit Endocrinology at [facility] [place] [address] Cornell Harper MD [facility] [place] [address] documented as of this encounter Visit Diagnoses Not on filedocumented in this encounter Care Teams Craft Worker Relationship Specialty Start Date End Date Baylee Elena, NIKKI PCP - General Family Medicine 03/25/18 03/01/22 documented as of this encounter
--- OUTSIDE RECORDS SUMMARY | 2024-01-29 04:54 | XMS_ITS | Encounter Summary ---
[place] [address] Care Team Providers Care Pick Pack Worker Name Role Phone Jamarcus Rodriguez MD Primary Care Provider [phone] Reason for Visit * Reason Comments Aftercare Of Tjr Lt Ant AMBER DOS Rt AMBER DOS 2008 Encounter Details Date Type Department Care Team (Late st Contact Info) Description 01/22/2015 11:00 AM EDT Office [place] [phone] Betty Dong APRN [facility] [place] [address] 02/04/2014 Dr. Holland Left Anterior AMBER; Status [...] encounter Progress Notes * Betty Dong [facility], [employer] - 01/22/2015 11:25 AM EDT Arthroplasty/Orthopaedic History: [...] elderly Parents. She is no taking any nursing home pain medicine. Other than minor falls,she has [...] 10:15 AM EDT Office Visit Endocrinology at [facility] [place] [address] Cornell Harper MD [facility] [place]IO [place] [address] documented as of this encounter Visit Diagnoses Diagnosis 02/04/2014 Dr. 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 Morales 2009 Hip joint replacement by other means documented in this encounter Care Teams Pick Pack Worker Relationship Specialty Start Date End Date Jamarcus Rodriguez MD [address] [place] [address] PCP - General 06/07/10 03/24/18 documented as of this encounter
--- OUTSIDE RECORDS SUMMARY | 2024-01-29 04:54 | XMS_ITS | Encounter Summary ---
Author Organization [facility] [place] [address] Care Team Providers Care National Facilities Manager Name Role Phone Jamarcus Rodriguez MD Primary Care Provider [phone] Encounter Details Date Type Department Care Team (Late st Contact Info) Description 12/25/2014 Orders [place] [phone] Betty Dong APRN [facility] [address] Aftercare following joint replacement Social History Tobacco [...] 10:15 AM EDT Office [place] [address] Cornell Harper MD [facility] [place] [address] documented as of this encounter Visit Diagnoses Diagnosis Aftercare following joint replacement documented in this encounter Care Teams National Facilities Manager Relationship Specialty Start Date End Date Jamarcus Rodriguez MD [address] [place] [address] PCP - General 06/07/10 03/24/18 documented as of this encounter
--- OUTSIDE RECORDS SUMMARY | 2024-01-29 04:54 | XMS_ITS | Encounter Summary ---
[place] [address] Care Team Providers Care Nurse Practitioner Name Role Phone Ulices Baylee Mayorga APRN Primary Care Provider [phone] Reason for Visit * Reason Comments Follow Up Surgery revision R AMBER Encounter Details Date Type Department Care Team (Late st Contact Info) Description 04/30/2018 4:00 PM EDT Office [place] [phone] Noemi Hudson MD [facility] [place] [address] Prosthetic hip implant failure, subsequent encounter Social [...] is noted in terms of pain and jain of function. QUESTIONNAIRE RESPONSES: General Health, Prior [...] AM EDT Office Visit Endocrinology at [facility] [place] [address] Cornell Harper MD [facility] [place] [address] documented as of this encounter Visit Diagnoses Diagnosis Prosthetic hip implant failure, subsequent encounter documented in this encounter Care Teams Nurse Practitioner Relationship Specialty Start Date End Date Baylee Elena APRN PCP - General Family Medicine 03/25/18 03/01/22 documented as of this encounter
--- OUTSIDE RECORDS SUMMARY | 2024-01-29 04:55 | XMS_ITS | Encounter Summary ---
Author Organization [facility] Address [facility] [place] [address] Care Team Providers Care Book Or Script Editor Name Role Phone Jamarcus Rodriguez MD Primary Care Provider [phone] Encounter Details Date Type Department Care Team (Late st Contact Info) Description 02/04/2014 12:23 PM EDT Anesthesia Event [place] [phone] Alexandra tSone MD [facility] [place] [address] Anesthesia Record Procedure Summary Procedure Name Responsible Anesthesiologist Anesthesia Start Time Anesthesia Stop Time TOTAL HIP ARTHROPLASTY, ANTERIOR APPROACH (WRVU 19.6) (Left: Hip) Alexandra Stone MD 02/04/14 1223 02/04/14 1421 Events Date Time Event Comment 02/04/2014 1208 1223 Start 1227 AN Verify 1227 An Start Data 1239 Anesthesia Ready 1255 Break/Relief In Josias Arturo Breen x, ARMHOLE SEWER 1414 an stop data 1421 Stop Meds [...] cephalic vein left (lateral side of arm); bats-llw-hyjtsd catheter system; 20 gauge, 1 in length; [...] Shankar RN 02/05/14 0600 by Lindsey Estrada, TANK TERMINAL GAUGER Incision 02/04/14; 1303; hip; 04/01/18; 1525 02/04/14 [...] consented to blood products. Plan discussed with ARMHOLE SEWER and attending. Misc. Assessment: documented in this encounter Plan of Treatment Upcoming Encounters Date Type Department Care Team (Late st Contact Info) Description 02/26/2024 10:15 AM EDT Office Visit [place] [address] Cornell Harper MD [facility] [place] [address] documented as of this encounter Procedures Procedure [...] Supervising Attending/Fellow: Chase ~~~~~~~~~~~~~~~~~~~~~~~~~~~~~~~~~~~~~~~~~~~~~~~~~~~~~~~~~~~~ Alexandra Stone MD [facility] documented in this encounter Visit Diagnoses [...] mg documented in this encounter Care Teams Book Or Script Editor Relationship Specialty Start Date End Date Jamarcus Rodriguez MD [address] [place] [address] PCP - General 06/07/10 03/24/18 documented as of this encounter
--- OUTSIDE RECORDS SUMMARY | 2024-01-29 04:55 | XMS_ITS | Encounter Summary ---
Author Organization [facility] [place] [address] Care Team Providers Care Incident Commander Name Role Phone Jamarcus Rodriguez MD Primary Care Provider [phone] Reason for Visit * Reason Comments Other Encounter Details Date Type Department Care Team (Late Contact Info) Description 01/13/2014 Telephone [place] [phone] Lance Holland MD [address] [place] [address] Social History Tobacco Use Types Packs/Day Years [...] Visit Endocrinology at [facility] [place] [address] Cornell Harper [place] [address] documented as of this encounter Visit Diagnoses Not on filedocumented in this encounter Care Teams Incident Commander Relationship Specialty Start Date End Date Jamarcus Rodriguez MD [address] [place] [address] PCP - General 06/07/10 03/24/18 documented as of this encounter
--- OUTSIDE RECORDS SUMMARY | 2024-01-29 04:55 | XMS_ITS | Encounter Summary ---
Author Organization [facility] Address [address] [place] [address] Care Team Providers Care Title Manager Name Role Phone Unavailable Primary Care Provider Unavailabl e Encounter Details Date Type Department Care Team (Late st Contact Info) Description 11/16/2006 Results Only [facility] - Maple conversion [address] [place] [address] Alvin Jauregui MD Social History Tobacco Use [...] ? ALYSSA DUBOIS ? Accession #: ? [id number] : ? 1945 (Age: 61) ??F ?Collect [...] Jauregui MD PATHOLOGY ORDERABLES Performing Organization Address City/State/[facility] Co de Phone Number [facility] [address] [place] [address] documented in this encounter Visit Diagnoses Not on filedocumented in this encounter
--- OUTSIDE RECORDS SUMMARY | 2024-01-29 04:55 | XMS_ITS | Encounter Summary ---
Author Organization [facility] Address [facility] [place] [address] Care Team Providers Care Manager Search Name Role Phone Jamarcus Rodriguez MD Primary Care Provider [phone] Encounter Details Date Type Department Care Team (Late st Contact Info) Description 02/02/2014 8:30 AM EDT Office [place] [phone] Social History Tobacco Use Types Packs/Day Years [...] 10:15 AM EDT Office [place] [address] Cornell Harper MD [facility] [place] [address] documented as of this encounter Visit Diagnoses Not on filedocumented in this encounter Care Teams Manager Search Relationship Specialty Start Date End Date Jamarcus Rodriguez MD [address] [place] [address] PCP - General 06/07/10 03/24/18 documented as of this encounter
--- OUTSIDE RECORDS SUMMARY | 2024-01-29 04:55 | XMS_ITS | Encounter Summary ---
[place] [address] Care Team Providers Care Shop Blacksmith Name Role Phone Jamarcus Rodriguez MD Primary Care Provider [phone] Encounter Details Date Type Department Care Team (Late st Contact Info) Description 02/02/2014 11:00 AM EDT Clinical [place] [address]1000 Pain in limb Social History Tobacco Use [...] AM EDT Office Visit Endocrinology at [facility] [place] [address] Cornell Harper MD [facility] [place] [address] documented as of this encounter Procedures Procedure [...] (Bezet) 418 ms MUSE SYSTEM Calculated P [place] 56 degrees MUSE SYSTEM Calculated R [place] 41 degrees MUSE SYSTEM Calculated T [place] 42 degrees MUSE SYSTEM INTERPRETATION Normal sinus [...] limb documented in this encounter Care Teams Shop Blacksmith Relationship Specialty Start Date End Date Jamarcus Rodriguez MD [address] [place] [address] PCP - General 06/07/10 03/24/18 documented as of this encounter
--- OUTSIDE RECORDS SUMMARY | 2024-01-29 04:55 | XMS_ITS | Encounter Summary ---
Author Organization [facility] [place] [address] Care Team Providers Care Gang Punch Operator Name Role Phone Jamarcus Rodriguez MD Primary Care Provider [phone] Encounter Details Date Type Department Care Team (Late st Contact Info) Description 03/20/2012 Orders [place] [phone] Nancy Acosta APRN [facility] [place] [address] Left hip pain (Primary Dx) Social History [...] 10:15 AM EDT Office [place] [address] Cornell Harper MD [facility] [place] [address] documented as of this encounter Visit Diagnoses Diagnosis Left hip pain- Primary Pain in joint, pelvic region and thigh documented in this encounter Care Teams Gang Punch Operator Relationship Specialty Start Date End Date Jamarcus Rodriguez MD [address] [place] [address] PCP - General 06/07/10 03/24/18 documented as of this encounter
--- OUTSIDE RECORDS SUMMARY | 2024-01-29 04:55 | XMS_ITS | Encounter Summary ---
Author Organization [facility] Address [facility] [place] [address] Care Team Providers Care Retail Selling Floor Leader Name Role Phone Jamarcus Rodriguez MD Primary Care Provider [phone] Encounter Details Date Type Department Care Team (Late st Contact Info) Description 03/21/2012 2:14 PM EDT - 03/21/2012 3:59 PM EDT Hospital Encounter XRay at [facility] [address] [facility] [place] [address] Left hip pain Social History Tobacco Use [...] Endocrinology at [facility] [place] [address] Cornell Harper MD [facility] [place] [address] documented as of this encounter Procedures Procedure [...] thigh documented in this encounter Care Teams Retail Selling Floor Leader Relationship Specialty Start Date End Date Jamarcus Rodriguez MD [address] [place] [address] PCP - General 06/07/10 03/24/18 documented as of this encounter
--- OUTSIDE RECORDS SUMMARY | 2024-01-29 04:55 | XMS_ITS | Encounter Summary ---
Author Organization [facility] Address [address] [place] [address] Care Team Providers Care Pattern Room Attendant Name Role Phone Unavailable Primary Care Provider Unavailabl e Encounter Details Date Type Department Care Team (Late st Contact Info) Description 03/01/2001 Results Only [facility] - Maple conversion [address] [place] [address] Cyndi Lorenz MD Social History Tobacco Use [...] ? ALYSSA DUBOIS ? Accession #: ? [id number] : ? 1945 (Age: 55) ??F ?Collect Date: ? 03/01/2001 Location: ? [facility] ? Receive Date: ? 03/06/2001 Provider: ?CYNDI LORENZ MD Copy to: ? [facility] ? [place] [facility] ? [address] ? [place] [address] ? Specimen/Source: ?ThinPrep Pap Test, Source Not [...] MD PATHOLOGY ORDER PATRICIA [facility] [address] [place] [address] documented in this encounter Visit Diagnoses Not on filedocumented in this encounter
--- OUTSIDE RECORDS SUMMARY | 2024-01-29 04:55 | XMS_ITS | Referral Summary ---
Author Organization [facility] Address [address] [place] [address] Care Team Providers Care Customs Director Name Role Phone Unknown, Provider Primary Care Provider [phone] Social History Tobacco Use Types Packs/Day Years Used Date Smoking Tobacco: Never Assessed Sex and Gender Information Value Date Recorded Sex Assigned at Not on file Gender Identity Not on file Sexual Orientation Not on file Plan of Treatment Not on file Care Teams Customs Director Relationship Specialty Start Date End Date Unknown, Provider, PCP - General 05/20/15
--- OUTSIDE RECORDS SUMMARY | 2024-01-29 04:55 | XMS_ITS | Encounter Summary ---
Author Organization [facility] Address [facility] [place] [address] Care Team Providers Care Admissions Assistant Name Role Phone Jamarcus Rodriguez MD Primary Care Provider [phone] Reason for Visit * Reason Comments Aftercare Of Tjr s/p right AMBER 11/21 Left Hip Pain Encounter Details Date Type Department Care Team (Late st Contact Info) Description 03/21/2012 2:55 PM EDT Office [place] [phone] Nancy Acosta APRN [facility] [place] [address] Knee joint pain (Primary Dx); Status post [...] encounter Progress Notes * Stephen-Ki, Nancy Higginbotham, MUFFLER TENDER - 03/21/2012 4:05 PM EDT DATE OF [...] The contralateral left hip appears to show zrwz-np-amfxipva joint space narrowing. I do not have [...] Endocrinology at [facility] [place] [address] Cornell Harper [place] [facility] [place] [address] documented as of this encounter Results * [...] leg documented in this encounter Care Teams Admissions Assistant Relationship Specialty Start Date End Date Jamarcus Rodriguez MD [address] [place] [address] PCP - General 06/07/10 03/24/18 documented as of this encounter
--- OUTSIDE RECORDS SUMMARY | 2024-01-29 04:55 | XMS_ITS | Encounter Summary ---
Author Organization [facility] Address [address] [place] [address] Care Team Providers Care Truck Rental Manager Name Role Phone Unavailable Primary Care Provider Unavailabl e Encounter Details Date Type Department Care Team (Late st Contact Info) Description 10/09/2008 Before PRISM Converted Visit (Maple) [facility] - Maple conversion [address] [place] [address] Charisma Hawkins, [address] [address] Social History Tobacco Use Types Packs/Day Years [...] ? GIBERSONTETREAIMANI, ALYSSA ? Accession #: ? [id number] ? : ? 1945 (Age: 63) ??F ? Collect Date: ? 10/26/2008 ? Location: ? [facility] ? Receive Date: ? 10/27/2008 ? Provider: SUE B HARKIN PRODUCTION HARDENER ? Copy to: NIRAV W WOOD MD [...] and is entirely submitted as (C). ??(Olinda Juarez)/[facility] ? End of Report ? [facility] 10/26/2008 10/27/2008 14: 30 EDT Sue Valderrama NP PATHOLOGY ORDERABLES Performing Organization Address City/State/[facility] Co de Phone Number [facility] [address] [place] [address] * HUMAN PAPILLOMA VIRUS DNA TEST (10/09/2008 14:52 EDT) Specimen Description Cervix, ThinPrep vial [facility] Result Negative for HPV types 16, 18, 31, 33, 35, 39, 45, 51, 52, 56, 58, 59, and 68. [facility] Report Status Final 10/20/2008 [facility] 10/09/2008 14:5 2 EDT 10/13/2008 14:52 EDT Charisma Hawkins CNM MICROBIOLOGY - G ENERAL ORDERABLES [facility] [address] [address] * CYTOPATHOLOGY (10/09/2008 0:00 EDT) Pathology Report: CYTOPATHOLOGY REPORT ? Reports generated via electronic interface contain original data; ? however they are lacking the format of the original report. ? Caution should be taken when reading/interpreti ng unformatted reports. ? Name: ? ALYSSA PEACE ? Accession #: ? [id number] ? : ? 1945 (Age: 63) ??F [...] reviewed and electronically signed by: ? Ashly [place], [place](ASCP) ? Report Date: ??10/13/2008 09:50 ? End of Report ? [facility] 10/09/2008 10/12/2008 Charisma Hawkins CNM PATHOLOGY [facility] [address] [place] [address] documented in this encounter Visit Diagnoses Not on filedocumented in this encounter
--- OUTSIDE RECORDS SUMMARY | 2024-01-29 04:55 | XMS_ITS | Clinical Summary ---
Author Organization [facility] Address [address] [place] [address] Care Team Providers Care Auto Claim Representative Name Role Phone Unknown, Provider Primary Care Provider [phone] Social History Tobacco Use Types Packs/Day Years [...] COVID-19 Vaccine (24 season) 2023 Care Teams Auto Claim Representative Relationship Specialty Start Date End Date Unknown, Provider, PCP - General 05/20/15
--- OUTSIDE RECORDS SUMMARY | 2024-01-29 04:55 | XMS_ITS | Encounter Summary ---
Author Organization [facility] Address [address] [place] [address] Care Team Providers Care Revenue Audit Clerk Name Role Phone Unavailable Primary Care Provider Unavailabl e Encounter Details Date Type Department Care Team (Late st Contact Info) Description 01/02/2012 Results Only [facility] ([facility]) [address] [place], [place] [address] Charisma Hawkins, [address] [id number] Social History Tobacco Use Types Packs/Day Years [...] ? ALYSSA BOYLE ? Accession #: ? [id number] ? : ? 1945 (Age: 66) ??F [...] types 16,18,31,33,35, 39,45,51,52,56,58, 59,66, and 68 by senior construction estimator mediated amplification. Comments Document reviewed and electronically [...] CNM PATHOLOGY ORDERA BLES Performing Organization Address City/State/[facility] Co de Phone Number [facility] [address] [place] [address] documented in this encounter Visit Diagnoses Not on filedocumented in this encounter
--- OUTSIDE RECORDS SUMMARY | 2024-01-29 04:55 | XMS_ITS | Encounter Summary ---
Author Organization [facility] Address [facility] Adolfo [facility] [place] [address] Care Team Providers Care Brickmason Supervisor Name Role Phone Jamarcus Rodriguez MD Primary Care Provider [phone] Encounter Details Date Type Department Care Team (Late st Contact Info) Description 09/02/2010 4:20 PM EST [place] [address] Moustapha Morlaes MD [facility] [place] [address] Discharge Disposition: Home Social History Tobacco Use [...] 10:15 AM EDT Office [place] [address] Cornell Harper MD [facility] [place] [address] documented as of this encounter Visit Diagnoses Not on filedocumented in this encounter Care Teams Brickmason Supervisor Relationship Specialty Start Date End Date Jamarcus Rodriguez MD [address] [place] [address] PCP - General 06/07/10 03/24/18 documented as of this encounter
--- OUTSIDE RECORDS SUMMARY | 2024-01-29 04:55 | XMS_ITS | Encounter Summary ---
Author Organization [facility] [place] [address] Care Team Providers Care Boom Boss Name Role Phone Carina Davis Primary Care Provider [phone] Encounter Details Date Type Department Care Team (Late st Contact Info) Description 12/02/2008 Orders [place] [address] Moustapha Morales MD [facility] [place] [address] Social History Tobacco Use Types Packs/Day Years [...] 10:15 AM EDT Office [place] [address] Cornell Harper MD [facility] [place] [address] documented as of this encounter Procedures Procedure Name Priority Date/Time Associated Diagnosis Comments SURGICAL PATHOLOGY REPORT Routine 12/02/2008 10:43 AM EDT documented in this encounter Results * Surgical Pathology Report (12/02/2008 10:43 AM EDT) Surgical Pathology Report [id number] ? Location: [facility]; [facility]; A The signing pathologist has (i) [...] ?Smooth, red trabecular bone. ?? Articular surface: [place], finely granular and pitted. ? Eburnation: ?Present [...] Moustapha Morales MD PATHOLOGY/[facility]Y [facility] documented in this encounter Visit Diagnoses Not on filedocumented in this encounter Care Teams Boom Boss Relationship Specialty Start Date End Date Carina Davis PA [address] [place] [address] PCP - General Family Medicine 03/02/22 documented as of this encounter
--- OUTSIDE RECORDS SUMMARY | 2024-01-29 04:55 | XMS_ITS | Encounter Summary ---
[place] [address] Care Team Providers Care Dry Cleaner Helper Name Role Phone Nirav Turner MD Primary Care Provider [phone] Encounter Details Date Type Department Care Team (Late st Contact Info) Description 02/04/2014 11:56 AM EDT - 02/04/2014 2:09 PM EDT Surgery [place] [id number] Steff Holland MD [address] [place] [id number] TOTAL HIP ARTHROPLASTY, ANTERIOR APPROACH (WRVU 19.6) [...] The INR should be reported to the [facility] Ortho clinic at [phone], and you will be informed of any [...] bowel movement. You can also take an naxi-ibd-czqnbli medication, miralax if needed to combat constipation. [...] 1. You will have followup appointments at [facility] as indicated in Future Appointment and Orders. Youwill have an xray prior to those appointments so please come to Radiology, desk 3T, 1 hour BEFORE your appointment for those x- rays. (plan to arive at 9:30 am for x-rays) Future Appointments Date Time Provider Department Center 03/11/2014 10:30 AM Betty Dong APRN [facility] If you have questions or concerns: [...] home with family. Discharge summary faxed to [facility]. LADONNA DAUGHERTY RN * Chad Heath [...] Rehabilitation Department Chad Heath PTA Pager # [phone] * DanieldiegoWilfridRestorationism Viviana - 02/06/2014 6:02 AM EDT ORTHOPAEDIC [...] on chronically, no bridging Pain control: d/c JACQUARD LOOM CARD CHANGER, oral pain medications D/c levine, HLIV Discharge [...] s/p Left Anterior Approach AMBER Surgery: 02/04/2014 [id number] Procedure(s) (LRB): @TOTAL HIP ARTHROPLASTY, ANTERIOR APPROACH (Left) MODIFIER CORAIL FEMORAL STEM DEPUY (Left) MODIFIER PINNACLE ACETABULUM DEPUY (Left) Surgeon(s) and Role: * Steff Holland MD - Primary * Farndy Hooper MD - Resident-Surgeon Jad * Job [...] 5:09 PM EDT 1700- Pt. Instructed about JACQUARD LOOM CARD CHANGER. * Ashly Dong RN - 02/04/2014 3:54 [...] February 04, 2014 Surgeon: Steff Holland MD Flat Sorter Processor: Frandy Hooper MD Anesthesia: GET Pre-operative diagnosis: Left hip osteoarthritis Post-operative diagnosis: Same Surgical Procedure Performed: Injection left hip with 10 cc marcaine 0.25% with epi, into skin and subcutaneous tissues Left total hip arthroplasty, anterior Hueter approach with [place] table Left hip intraoperative radiologic examination Components Used: Depuy Corail stem, size 11, standard Pembroke cup, 50 mm, solid 32 mm ID, [...] wasperformed. Patient was positioned supine on the [place] table, both feet and ankles were padded [...] liner was placed and impacted according to tierce filler's instructions. Any impinging osteophytes were removed. The [...] laterally. At the same time, the assistant editor leaned against the thigh to optimize femoral [...] Implant Name Type Inv. Item Serial No. Bulldozer Mechanic Lot No. LRB No. Used Action CUP,HIP,ACETB,GRPTN,100,50MM ([id number]) (AUTOREQ) - [id number] IMPLANTS CUP,HIP,ACETB,GRPTN,100,50MM ([id number]) (AUTOREQ) [id number] Left 1 Implanted INSER,ALTRX,NT,[id number] ([id number]) (AUTOREQ) - [id number] IMPLANTS INSER,ALTRX,NT,[id number] ([id number]) (AUTOREQ) [id number] Left 1 Implanted STEM,CRL2,STD,SZ11 ([id number]) (AUTOREQ) - [id number] IMPLANTS STEM,CRL2,STD,SZ11 ([id number]) (AUTOREQ) [id number] Left 1 Implanted BALL,ATC,BRN,+5MM,32MM ([id number]) (AUTOREQ) - [id number] IMPLANTS BALL,ATC,BRN,+5MM,32MM ([id number]) (AUTOREQ) [id number] Left 1 Implanted * OR Attestation - [...] Alyssa Burnham Patient Age: 68 y.o. Language: Liberian Race: White Ethnicity: Not nor Admit date: 02/04/2014 Discharge date and time: 02/06/2014 Attending Physician: Steff Holland MD Discharge Physician: Steff Holland MD Follow-up Recommendations for Providers: Please see patient discharge instructions for additional details. Inpatient Provider Contact Information: Steff Holland MD Joints: [phone] After hours and weekends, call [facility] Chair Inspector And Leveler, , and have Orthopedic resident paged. Discharge [...] an outside provider Mikael Salgado D.O. in [place] after she did experience increased left hip pain after shoveling 3 mm months. At that time, The aforementioned Orthopaedic provider did order a left hip MRI scan revealed a cam lesion moderate severe degenerative joint disease. She was advised to seek consultation for possible left hip arthroplasty. She does split her time between [place] and [place] to care for her aging parents essentially spending ~ 6 months in [place] and [place]. She describes her left hip pain as moderate to severe with difficulty putting her shoes and socks on. She does use a cane for assistance and upin-jqs-bymemrz anti-inflammatories. She is just about to start [...] Rate: [67-92] Blood Pressure BP: 140/59 mmHg @qctoshd79@ Respiratory Rate Resp: 16 Resp: [16] SpO2 SpO2: 95 % @nokyyvyx07@ Art BP BP (Arterial Line): -- Functional [...] The INR should be reported to the [facility] Ortho clinic at [phone], and you will be informed of any [...] bowel movement. You can also take an ysps-yur-wlveawi medication, miralax if needed to combat constipation. [...] 1. You will have followup appointments at [facility] as indicated in Future Appointment and Orders. [...] 03/11/2014 10:30 AM Betty Dong APRN Orthopaedics [phone] [facility] Joint Appt Questionnaire [facility] Orth[facility] [phone] [facility] Future Orders Please Complete By Expires Referral for Anticoagulation Monitoring [MBU357 Custom] Process Instructions: If no progress note [...] Referral to Home Health - at DISCHARGE [NYC2540 CPT(R)] Process Instructions: Scheduling Instructions: Comments: DOCUMENTATION FOR VNA SERVICES Alyssa Hanna DallinofeliaRicardoObed Discharge to own home: [address] [facility] [phone] (home) Crayon Molding Machine Operator's Name: Self In discussion with the attending physician, it is certified that this patient is under their care and that they, or a nurse practitioner, clinical nurse specialist or physician's assistant editor who is working directly with them, had [...] for services as follows: Home Health Agency: [facility] PHONE: [phone] FAX: [phone] Home care orders for Total Hip Replacements: [...] PT/INR results to be reported as follows: [facility] Orthopedic anticoagulation (Coumadin) clinic @ ; 2. [...] Questions: Responses: Agency name and contact information [place] [facility] Patient location post discharge Home What services are requested Registered Nurse Physical Therapy Start date 02/07/2014 Responsible MD post discharge contact info PCP/[facility] Orthopaedic Service Primary Care Provider: NIRAV TURNER MD [phone] * Plan of Care - Marcelina Liu [...] 4:45 PM EDT Office of Care Management/Clinical Public Interviewer (CRC)/Initial Assessment CRC Todd Matthew RN (pager [phone]) Patient: Alyssa Zamarripaofelia-Obed : 1945 (68 y.o.) Home: [place] [address]* LOS: 1 day Care reviewed with Dr. [...] directives: Received ?? Insurance coverage: Medicare AB, [employer] ?? Admission status: 02/04/14 IPI Order to Admit is appropriate and waiting to be signed by an attending provider; notified Dr. Steff Holland via email. ?? Anticipated barriers to discharge: None ?? Financial concerns: None ?? Identified patient/family concerns r/t discharge: None ?? Form Grader Operator referral indicated: No ?? Baseline functional status/mobility: Independent ?? Current home/community services/equipment: Walker ?? Current functional status/mobility: Walker with stand by assist ?? Anticipated discharge date: Tuesday 02/06 ?? Anticipated discharge place: Home into care of friend ?? [facility] health agency: [facility] RN/PT orders pended. ?? Transportation at discharge: Friend ?? PCP: NIRAV TURNER MD, Future Appointments Date Time Provider Department Center 03/11/2014 10:30 AM Betty Dong APRN [facility] [address] [place] [address] CLIN Plan: Care Management will continue to monitor progress, follow for continuity of care, and assist with discharge planning. * Initial Assessments - Good Orozco, OT - 02/05/2014 1:08 PM EDT Occupational Therapy Evaluation [facility]: [facility] 68 y.[facility]. female patient of [...] APPROACH performed by Steff Holland MD at [facility] Social History: Patient lives alone, however girlfriend will be staying with her for a week. Home Setup: one level, walk in (3 inch step) shower DME: shower chair, higher toilet seat with arms, reed cleaner, walker, cane Baseline ADL/Mobility: Independent with ADLS [...] eval Total timed interventions: 0 minutes Pager: [phone] GOOD OROZCO OT 02/05/2014 Occupational Therapy Rehabilitation [...] APPROACH performed by Steff Holland MD at [facility] Social History: Patient is but has a friend to stay with her at d/c. 1 step x 3 to enter. Ind amb SERVICE REPRESENTATIVE Precautions/Special Considerations: WBAT L L/E, standard hip [...] treatment: 0 minutes zakiya FIELDS, PT Pager: [phone] * Plan of Care - Sofia Mills [...] Brief Operative Note Patient Name: Alyssa BlandObed [facility]: [id number] MR#: [id number] Case Date: 02/04/2014 Surgeon: Surgeon(s) and Role: [...] Endocrinology at [facility] [place] [address] Cornell Harper [place] [address] Pending Results Name Type Priority Associated Diagnoses [...] MD HEMATOLOGY ORDERABLE S Performing Organization Address [facility] de Phone Number [facility] * (ABNORMAL) Prothrombin Time (02/06/2014 3:35 AM EDT) PT 17.8(H) 12.5 - 15.5 sec CERNER MILLENNIUM Comment: [facility] Transfusion Committee Guidelines: INR less than [...] MD HEMATOLOGY ORDERABLE S Performing Organization Address [facility] de Phone Number [facility] * (ABNORMAL) Basic Metabolic Panel (non-fasting) (02/06/2014 3:35 AM EDT) Glucose Lvl 121 60 - 199 mg/dL [facility] MILLENNIUM Comment:Diabetes: >=200 mg/d L plus symptoms BUN 7(L) 8 - 18 mg/dL [facility]NI[facility] Creatinine 0.63(L) 0.70 - 1.20 mg/dL [facility] MILLENNIUM Comment: Please note that the pediatric reference intervals supplied above were not validated at [facility]. Results from pediatric patients should be interpreted [...] the following links into your internet browser. [email or web address] [email or web address] Blood specimen (specimen) 02/06/2014 3:35 AM EDT [...] MD HEMATOLOGY ORDERABLE S Performing Organization Address [facility] de Phone Number NOLA LAMBERTIUM * Prothrombin Time (02/05/2014 3:21 AM EDT) PT 14.6 12.5 - 15.5 sec [facility] Comment: [facility] Transfusion Committee Guidelines: INR less than [...] MD HEMATOLOGY ORDERABLE S Performing Organization Address [facility] de Phone Number NOLA AGUILA * (ABNORMAL) Basic Metabolic Panel (non-fasting) (02/05/2014 3:21 AM EDT) Glucose Lvl 122 60 - 199 mg/dL [facility] Comment:Diabetes: >=200 mg/d L plus symptoms BUN 9 8 - 18 mg/dL [facility] Creatinine 0.69(L) 0.70 - 1.20 mg/dL [facility] Comment: Please note that the pediatric reference intervals supplied above were not validated at [facility]. Results from pediatric patients should be interpreted in conjunction to the patient's age, height and muscle mass. Sodium 141 135 - 145 mmol/L [facility] Potassium 4.2 3.5 - 5.0 mmol/L [facility] Comment: Please note: ??Patients with WBC [...] the following links into your internet browser. [email or web address] [email or web address] Blood specimen (specimen) 02/05/2014 3:21 AM EDT 02/05/2014 3:40 AM EDT Narrative Resulting Agency Comment Spec In Lab Steff Holland MD CHEMISTRY ORDERABLES [facility] * Surgical Pathology Report (02/04/2014 1:10 PM EDT) Surgical Pathology Report ? [facility] ? Provider: ?? STEFF HOLLAND ? Pt. Name: ?? VADIM Ferrell, ALYSSA Hanna ? Acc #: ?[id number] ?Pt. ? Col Date: ?? 02/04/2014 ? [...] MD PATHOLOGY/CYTOLOGY Lenora KENNEDY Performing Organization Address [facility] de Phone Number NOLA AGUILA * Specimen to Pathology (surgical or derm) (02/04/2014 1:10 PM EDT) AP Specimen 02/04/2014 1:10 PM EDT 02/04/2014 1:10 PM EDT Narrative NOLA AYLA - 02/04/2014 1:10 PM EDT Specimen requisition ordered. ??Separate Pathology report to follow Authorizing Provider Result Van Holland MD PATHOLOGY/CYTOLOGY Lenora KENNEDY Performing Organization Address [facility] de Phone Number NOLA AGUILA documented in [...] Ashly Dong RN - Comment: Done by [facility] Nurse.) sodium chloride 0.9 % flush [...] 02/04/2014 02/05/2014 02/06/2014 HYDROmorphone (DILAUDID) 1 mg/mL JACQUARD LOOM CARD CHANGER 30 mL (CANCELED) Intravenous, JACQUARD LOOM CARD CHANGER ONLY, Starting on Sun02/04/14 at 1515, Until [...] Unit) documented in this encounter Care Teams Dry Cleaner Helper Relationship Specialty Start Date End Date Nirav Turner MD [address] [place] [address] PCP - General 06/07/10 03/24/18 documented as of this encounter
--- OUTSIDE RECORDS SUMMARY | 2024-01-29 04:55 | XMS_ITS | Encounter Summary ---
Author Organization [place] [address] Care Team Providers Care Antenna Engineer Name Role Phone Jamarcus Rodriguez MD Primary Care Provider [phone] Reason for Visit * Reason Comments Left Hip Pain Aftercare Of Tjr s/p left svetlana bravo Encounter Details Date Type Department Care Team (Latest Contact Info) Description 12/29/2013 12:10 PM EDT Office [place] [address] Lance Holland MD [address] [place] [address] Primary osteoarthritis of left hip (Primary Dx); [...] this encounter Progress Notes * Betty Dong, NUCLEAR PHYSICS PROFESSOR - 12/29/2013 12:58 PM EDT Chief Complaint: 1. Rotary appointment for right hip SVETLANA. 2. Left hip pain. PERTINENT SURGICAL HISTORY: On 12/02/2008, right total hip arthroplasty by Dr. Cifuentes. SURGERY DATE: 12/02/2008 SHINE CIFUENTES MD (058) Right total hip arthroplasty. Preoperative Diagnosis: Right hip osteoarthritis. Postoperative Diagnosis: Right hip osteoarthritis. Implants: All are from the DePuy Total Hip System: 1. Nephi 300 series acetabular cup, 50 mm. 2. +4 lateral Oxford polyethylene liner. 3. A 32+0 ceramic head. [...] an outside provider Mikael Salgado D.O. in [place] after she did experience increased left hip pain after shoveling 3 mm months. At that time, The aforementioned Orthopaedic provider did order a left hip MRI scan revealed a camlesion moderate severe degenerative joint disease. She was advised to seek consultation for possible left hip arthroplasty. She does split her time between [place] and [place] to care for her aging parents essentially spending ~ 6 months in [place] and [place]. She describes her left hip pain as moderate to severe with difficulty putting her shoes and socks on. She does use a cane for assistance and rejk-fjq-unzknbq anti-inflammatories. She is just about to start [...] ??? 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 History Substance Use Topics ??? Smoking status: [...] There is an OPEN MRI scan from [place] November 2013 that reveals moderate to severe [...] [facility] [place] [address] Cornell Harper MD [facility] [place] [address] documented as of this encounter Visit Diagnoses Diagnosis Primary osteoarthritis of left hip- Primary Primary localized osteoarthrosis, pelvic region and thigh History of total hip replacement Hip joint replacement by other means documented in this encounter Care Teams Antenna Engineer Relationship Specialty Start Date End Date Jamarcus Rodriguez MD [address] [place] [address] PCP - General 06/07/10 03/24/18 documented as of this encounter
--- OUTSIDE RECORDS SUMMARY | 2024-01-29 04:55 | XMS_ITS | Encounter Summary ---
Author Organization [facility] Address [facility] [place] [address] Care Team Providers Care Superintendent Stevedoring Name Role Phone Jamarcus Rodriguez MD Primary Care Provider [phone] Encounter Details Date Type Department Care Team (Late st Contact Info) Description 01/08/2014 Orders Only [place] [address] Steff Shukla MD [address] [place] [address] [place] [address] Pain in limb; Debility Social History Tobacco [...] 10:15 AM EDT Office Visit [place] [address] Cornell Harper MD [facility] [place] [address] Scheduled Orders Name Type Priority [...] STEFF SHUKLA ? ALYSSA Jacques ? MR#: [id number] ?LOC: ??3D ? /Sex: ??1945 (68 years), [...] (Bezet) 418 ms MUSE SYSTEM Calculated P [place] 56 degrees MUSE SYSTEM Calculated R [place] 41 degrees MUSE SYSTEM Calculated T [place] 42 degrees MUSE SYSTEM INTERPRETATION Normal sinus [...] MD HEMATOLOGY ORDERABLE S Performing Organization Address [facility] Co de Phone Number NOLA AGUILA * High Sensitivity CRP (02/02/2014 11:17 AM EDT) CRP High Sens 2.8 mg/L [facility] Comment: Interpretations: 1) For accurate cardiac [...] Shukla MD CHEMISTRY ORDERABLES Performing Organization Address [facility] Co de Phone Number NOLA AGUILA * Albumin Level (02/02/2014 11:17 AM EDT) Albumin 4.5 3.2 - 5.2 gm/dL [facility] Blood specimen (specimen) 02/02/2014 11:17 AM EDT 02/02/2014 11:34 AM EDT Narrative Resulting Agency Comment Spec In Lab Authorizing Provider Result Van Shukla MD CHEMISTRY ORDERABLES Performing Organization Address [facility] de Phone Number [facility] * Protein, total (02/02/2014 11:17 AM EDT) Total Protein 7.4 6.4 - 8.3 gm/dL [facility] Blood specimen (specimen) 02/02/2014 11:17 AM EDT 02/02/2014 11:34 AM EDT Narrative Resulting Agency Comment Spec In Lab Authorizing Provider Result Van Shukla MD CHEMISTRY ORDERABLES Performing Organization Address [facility] [place] Phone Number [facility] * Prothrombin Time (02/02/2014 11:17 AM EDT) PT 12.6 12.5 - 15.[address] [facility] Comment: [facility] Transfusion Committee Guidelines: INR less than 2.0, PTT less than OR equal to 43.5 seconds, or Fibrinogen greater than or equal to 100 mg/dl indicate adequate procoagulant activity for hemostasis in patients without underlying bleeding disorders. INR 0.9 0.9 - 1.1 [facility] Blood specimen (specimen) 02/02/2014 11:17 AM EDT 02/02/2014 11:34 AM EDT Narrative Resulting Agency Comment Spec In Lab Authorizing Provider Result Van Shukla MD HEMATOLOGY ORDERABLE S Performing Organization Address [facility] de Phone Number [facility] * Basic Metabolic Panel (non-fasting) (02/02/2014 11:17 AM EDT) Glucose Lvl 102 60 - 199 mg/dL [facility] Comment:Diabetes: >=200 mg/d L plus symptoms BUN 14 8 - 18 mg/dL [facility] Creatinine 0.76 0.70 - 1.20 mg/dL [facility] M[facility] Comment: Please note that the pediatric reference intervals supplied above were not validated at [facility]. Results from pediatric patients should [...] the following links into your internet browser. [email or web address] Blood specimen (specimen) 02/02/2014 11:17 AM EDT 02/02/2014 11:34 AM EDT Narrative Resulting Agency Comment Spec In Lab Steff Shukla MD CHEMISTRY ORDERABLES NOLA AGUILA documented in this encounter Visit Diagnoses Diagnosis Pain in limb Debility Debility, unspecified Pain in limb Pain in limb documented in this encounter Care Teams Superintendent Stevedoring Relationship Specialty Start Date End Date Jamarcus Rodriguez MD [address] [place] [address] PCP - General 06/07/10 03/24/18 documented as of this encounter
--- OUTSIDE RECORDS SUMMARY | 2024-01-29 04:55 | XMS_ITS | Encounter Summary ---
Author Organization [facility] Address [address] [place] [address] Care Team Providers Care Emanations Analysis Technician Name Role Phone Unavailable Primary Care Provider Unavailabl e Encounter Details Date Type Department Care Team (Latest Contact Info) Description 10/26/2008 16:54 EDT Hospital Encounter [facility] - Other [address] [place] [address] Lilia Valderrama, SENIOR OPERATIONS MANAGER [address] [place] [address] Discharge Disposition: Home or Self Care Social [...]
--- OUTSIDE RECORDS SUMMARY | 2024-01-29 04:55 | XMS_ITS | Encounter Summary ---
Author Organization [facility] [place] [address] Care Team Providers Care Wax Pot Tender Name Role Phone Jamarcus Rodriguez MD Primary Care Provider [phone] Reason for Visit * Reason Comments Left Hip Pain Encounter Details Date Type Department Care Team (Late st Contact Info) Description 02/02/2014 2:30 PM EDT Office [place] [address] Steff Shukla MD [address] [place] [address] Pain in limb; Debility; DJD (degenerative joint [...] 10:15 AM EDT Office Visit Endocrinology at [facility] [place] [place] [address] Cornell Harper [place] [address] documented as of this encounter Procedures Procedure Name Priority Date/Time Associated Diagnosis Comments URINE CULTURE Routine 02/02/2014 2:07 PM EDT Debility HEMOGRAM Routine 02/02/2014 11:17 AM EDT Pain in limb DIFFERENTIAL, AUTOMATED Routine 02/02/2014 11:17 AM EDT Pain in limb TYPE AND SCREEN, SDP (FUTURE SURGERY, [facility] SAME DAY PROGRAM ONLY) Routine 02/02/2014 11:17 [...] STEFF SHUKLA ? ALYSSA Hanna ? MR#: [id number] ?LOC: ??3D ? /Sex: ??1945 (68 years), [...] - GENER AL ORDERABLES Performing Organization Address City/[facility] de Phone Number NOLA LAMBERTIUM * Antibody screen (02/02/2014 11:17 AM EDT) Ab Screen Interp Negative NOLA LAMBERTIUM Expires at [id number] on: [id number] NOLA LAMBERTIUM Blood specimen (specimen) 02/02/2014 11:17 AM EDT 02/02/2014 11:38 AM EDT Narrative Resulting Agency Comment Spec In Lab Steff Shukla MD BLOOD BANK LAB ORDER PATRICIA Performing Organization Address City/[facility] de Phone Number CERMITCHELL LAMBERTIUM * ABO/Rh Typing (02/02/2014 11:17 AM EDT) ABORH Type A Pos CERMITCHELL LAMBERTIUM Blood specimen (specimen) 02/02/2014 11:17 AM EDT 02/02/2014 11:38 AM EDT Narrative Resulting Agency Comment Spec In Lab Steff Shukla MD BLOOD BANK LAB ORDER PATRICIA Performing Organization Address City/[facility] de Phone Number CERMITCHELL LAMBERTIUM * [...] MILLENNIUM MCHC 33.6 32.0 - 36.5 gm/dL [facility] MILL[facility] Platelets 200 145 - 370 x10(3)/mcL CERNER MILLENNIUM RDWSD 44.4 35.0 - 46.0 fL [facility] MILLENNIUM RDWCV 14.2 10.9 - 14.4 % [facility] MILLENNIUM MPV 9.8 9.0 - 12.0 fL [facility] MILLENNIUM Blood specimen (specimen) 02/02/2014 11:17 AM EDT 02/02/2014 11:34 AM EDT Narrative Resulting Agency Comment Spec In Lab Steff Shukla MD HEMATOLOGY ORDERABLE S Performing Organization Address [facility] de Phone Number [facility] * Sedimentation rate (02/02/2014 11:17 AM EDT) Sed Rate 11 0 - 20 mm/hr [facility] Blood specimen (specimen) 02/02/2014 11:17 AM EDT 02/02/2014 11:34 AM EDT Narrative Resulting Agency Comment Spec In Lab Steff Shukla MD HEMATOLOGY ORDERABLE S Performing Organization Address [facility] de Phone Number [facility] * High Sensitivity CRP (02/02/2014 11:17 AM EDT) CRP High Sens 2.8 mg/L [facility] MILLENNIUM Comment: Interpretations: 1) For accurate cardiac [...] Shukla MD CHEMISTRY ORDERABLES Performing Organization Address [facility] Phone Number [facility] * Albumin Level (02/02/2014 11:17 AM EDT) Albumin 4.5 3.2 - 5.2 gm/dL [facility] Blood specimen (specimen) 02/02/2014 11:17 AM EDT 02/02/2014 11:34 AM EDT Narrative Resulting Agency Comment Spec In Lab Steff Shukla MD CHEMISTRY ORDERABLES Performing Organization Address [facility] Phone Number [facility] * Protein, total (02/02/2014 11:17 AM EDT) Pathologist [facility] Total Protein 7.4 6.4 - 8.3 gm/dL [facility] Blood specimen (specimen) 02/02/2014 11:17 AM EDT 02/02/2014 11:34 AM EDT Narrative Resulting Agency Comment Spec In Lab Steff Shukla MD CHEMISTRY ORDERABLES Performing Organization Address [facility] Phone Number [facility] * Prothrombin Time (02/02/2014 11:17 AM EDT) PT 12.6 12.5 - 15.5 sec [facility] Comment: [facility] Transfusion Committee Guidelines: INR less than [...] intervals supplied above were not validated at [facility]. Results from pediatric patients should [...] the following links into your internet browser. [email or web address] Blood specimen (specimen) 02/02/2014 11:17 AM EDT 02/02/2014 11:34 AM EDT Narrative Resulting Agency Comment Spec In Lab Steff Shukla MD CHEMISTRY ORDERABLES [facility] documented in this encounter Visit Diagnoses Diagnosis Pain in limb Debility Debility, unspecified DJD (degenerative joint disease) of hip Osteoarthrosis, unspecified whether generalized or localized, pelvic region and thigh documented in this encounter Care Teams Wax Pot Tender Relationship Specialty Start Date End Date Jamarcus Rodriguez MD [address] [place] [address] PCP - General 06/07/10 03/24/18 documented as of this encounter
--- OUTSIDE RECORDS SUMMARY | 2024-01-29 04:55 | XMS_ITS | Encounter Summary ---
Author Organization [facility] Address [facility] [place] [address] Care Team Providers Care Continuous Yarn Dyeing Machine Operator Name Role Phone Jamarcus Rodriguez MD Primary Care Provider [phone] Encounter Details Date Type Department Care Team (Late st Contact Info) Description 02/02/2014 11:40 AM EDT - 02/02/2014 11:59 PM EDT Hospital Encounter XRay at [address] [place] [id number] Pain in limb Social History Tobacco Use [...] Visit Endocrinology at [facility] [place] [address] Cornell Harper MD [facility] [place] [address] documented as of this encounter Procedures Procedure [...] limb documented in this encounter Care Teams Continuous Yarn Dyeing Machine Operator Relationship Specialty Start Date End Date Jamarcus Rodriguez MD [address] [place] [address] PCP - General 06/07/10 03/24/18 documented as of this encounter
--- OUTSIDE RECORDS SUMMARY | 2024-01-29 04:55 | XMS_ITS | Encounter Summary ---
Author Organization [facility] Address [facility] [address] Care Team Providers Care Manager Android Name Role Phone Jamarcus Rodriguez MD Primary Care Provider [phone] Encounter Details Date Type Department Care Team (Late st Contact Info) Description 01/13/2014 Orders [place] [address] Lance Holland MD [address] [place] [address] [place] [address] OA (osteoarthritis) (Primary Dx) Social History Tobacco [...] 10:15 AM EDT Office [place] [address] Cornell Harper MD [facility] [place] [address] documented as of this encounter Visit Diagnoses Diagnosis OA (osteoarthritis)- Primary Osteoarthrosis, unspecified whether generalized or localized, unspecified site documented in this encounter Care Teams Manager Android Relationship Specialty Start Date End Date Jamarcus Rodriguez MD [address] [place] [address] PCP - General 06/07/10 03/24/18 documented as of this encounter
--- OUTSIDE RECORDS SUMMARY | 2024-01-29 04:55 | XMS_ITS | Encounter Summary ---
Author Organization [facility] Address [facility] [place] [address] Care Team Providers Care Tool And Die Assembler Name Role Phone Jamarcus Rodriguez MD Primary Care Provider [phone] Encounter Details Date Type Department Care Team (Latest Contact Info) Description 03/21/2012 4:00 PM EDT - 03/21/2012 11:59 PM EDT Hospital Encounter XRay at [address] [place] [address] CLINIC, [place] Lynne MD [facility] [place] [address] Knee joint pain Discharge Disposition: Home Social [...] Endocrinology at [facility] [place] [address] [facility] [place] [address] documented as of this encounter Procedures Procedure [...] leg documented in this encounter Care Teams Tool And Die Assembler Relationship Specialty Start Date End Date Jamarcus Rodriguez MD [address] [place] [address] PCP - General 06/07/10 03/24/18 documented as of this encounter
--- OUTSIDE RECORDS SUMMARY | 2024-01-29 04:55 | XMS_ITS | Encounter Summary ---
Author Organization [facility] Address [address] [place] [address] Care Team Providers Care News Videotape Editor Name Role Phone Unavailable Primary Care Provider Unavailabl e Encounter Details Date Type Department Care Team (Late st Contact Info) Description 05/21/2003 Results Only [facility] - Map conversion [address] [place] [address] Cyndi Lorenz MD Social History Tobacco Use [...] ? ALYSSA DUBOIS ? Accession #: ? [id number] : ? 1945 (Age: 57) ??F ?Collect Date: ? 05/21/2003 Location: ? [facility] ? Receive Date: ? 05/25/2003 Provider: ?CYNDI LORENZ MD Copy to: ? [facility] ?[address] ?[place] [address] ? Specimen/Source: ?ThinPrep Pap Test, Source Not [...] MD PATHOLOGY ORDER PATRICIA SHASHANK MARINA [address] [place] [address] documented in this encounter Visit Diagnoses Not on filedocumented in this encounter
--- OUTSIDE RECORDS SUMMARY | 2024-01-29 04:55 | XMS_ITS | Encounter Summary ---
Author Organization [facility] Address [facility] [place] [address] Care Team Providers Care Hog Operator Name Role Phone Jamarcus Rodriguez MD Primary Care Provider [phone] Encounter Details Date Type Department Care Team (Late st Contact Info) Description 12/25/2013 Orders [place] [address] Lance Holland MD [address] [place] [address] Status post right hip replacement (Primary Dx); [...] 10:15 AM EDT Office [place] [address] Cornell Harper MD [facility] [place] [address] documented as of this encounter Visit Diagnoses Diagnosis Status post right hip replacement- Primary Hip joint replacement by other means Pain in left hip Pain in joint, pelvic region and thigh documented in this encounter Care Teams Hog Operator Relationship Specialty Start Date End Date Jamarcus Rodriguez MD [address] [place] [address] PCP - General 06/07/10 03/24/18 documented as of this encounter
--- OUTSIDE RECORDS SUMMARY | 2024-01-29 04:55 | XMS_ITS | Encounter Summary ---
Author Organization [facility] Address [facility] [place] [address] Care Team Providers Care Facility Practice Specialist Name Role Phone Jamarcus Rodriguez MD Primary Care Provider [phone] Encounter Details Date Type Department Care Team (Late st Contact Info) Description 09/02/2010 3:20 PM EST Procedure visit [address] [address] Social History Tobacco Use Types Packs/Day Years [...] 10:15 AM EDT Office [place] [address] Cornell Harper MD [facility] [place] [address] documented as of this encounter Visit Diagnoses Not on filedocumented in this encounter Care Teams Facility Practice Specialist Relationship Specialty Start Date End Date Jamarcus Rodriguez MD [address] [place], [place] [id number] PCP - General 06/07/10 03/24/18 documented as of this encounter
--- OUTSIDE RECORDS SUMMARY | 2024-01-29 04:55 | XMS_ITS | Encounter Summary ---
Author Organization [facility] Address [address] [place] [address] Care Team Providers Care Rn Perinatal Name Role Phone Unavailable Primary Care Provider Unavailabl e Encounter Details Date Type Department Care Team (Late st Contact Info) Description 05/19/2002 Results Only [facility] conversion [address] [place] [address] Cyndi Lorenz MD Social History Tobacco Use [...] ? ALYSSA DUBOIS ? Accession #: ? [id number] : ? 1945 (Age: 56) ??F ?Collect Date: ? 05/19/2002 Location: ? [facility] ? Receive Date: ? 05/22/2002 Provider: ?CYNDI LORENZ MD Copy to: ? [facility] ?[address] ?[place] [address] ? Specimen/Source: ?ThinPrep Pap Test, Cervix/Endocervix Last [...] MD PATHOLOGY ORDER PATRICIA SHASHANK MARINA [address] [place] [address] documented in this encounter Visit Diagnoses Not on filedocumented in this encounter
--- OUTSIDE RECORDS SUMMARY | 2024-01-29 04:55 | XMS_ITS | Encounter Summary ---
Author Organization [facility] [place] [place] [address] Care Team Providers Care Lease Analyst Name Role Phone Nirav Turner MD Primary Care Provider [phone] Reason for Referral * Consultation (Routine) - Closed by system - Referral Specialty Diagnoses / Procedures Referred By Contac t Referred To Contact Orthopaedic Surgery Diagnoses Status post right hip replacement Breann Ochoa PA [facility] DR [place]OPA[place] [address] Referral ID Status Reason Start Date Expiration Date Visits Requested Visits Authorized [id number] Closed by system - Referral Assume Subset of Care 02/06/2014 08/05/2014 1 1 Encounter Details Date Type Department Care Team (Latest Contact Info) Description 02/04/2014 10:11 AM EDT - 02/06/2014 2:24 PM EDT Hospital Encounter 3 [place] [id number] Steff Holland MD [facility] [place] [address] Pain in limb; OA (osteoarthritis); 02/04 Dr. [...] The INR should be reported to the [facility] Ortho clinic at [phone], and you will be informed of any [...] bowel movement. You can also take an tagj-xae-qfqxtxu medication, miralax if needed to combat constipation. [...] 1. You will have followup appointments at [facility] as indicated in Future Appointment and Orders. Youwill have an xray prior to those appointments so please come to Radiology, desk 3T, 1 hour BEFORE your appointment for those x- rays. (plan to arive at 9:30 am for x-rays) Future Appointments Date Time [facility] Department Center 03/11/2014 10:30 AM Betty Dong APRN [facility] [address] [place] [address] CLIN If you have questions or concerns: [...] home with family. Discharge summary faxed to [facility]. LADONNA DAUGHERTY RN * Chad Heath NUTRITION ASSOCIATE - 02/06/2014 11:31 AM EDT Physical Therapy [...] Rehabilitation Department Chad Heath PTA Pager # [phone] * Frandy Hooper - 02/06/2014 6:02 AM [...] on chronically, no bridging Pain control: d/c HVAC TECH, oral pain medications D/c OSMEL levine Discharge [...] s/p Left Anterior Approach AMBER Surgery: 02/04/2014 [id number] Procedure(s) (LRB): @TOTAL HIP ARTHROPLASTY, ANTERIOR APPROACH [...] 5:09 PM EDT 1700- Pt. Instructed about HVAC TECH. * Ashly Dong RN - 02/04/2014 3:54 [...] February 04, 2014 Surgeon: Steff Holland MD Exterminator Helper Termite: Frandy Hooper MD Anesthesia: GET Pre-operative diagnosis: Left hip osteoarthritis Post-operative diagnosis: Same Surgical Procedure Performed: Injection left hip with 10 cc marcaine 0.25% with epi, into skin and subcutaneous tissues Left total hip arthroplasty, anterior Hueter approach with Clovis table Left hip intraoperative radiologic examination Components Used: Depuy Corail stem, size 11, standard Alamo cup, 50 mm, solid 32 mm ID, [...] wasperformed. Patient was positioned supine on the Clovis table, both feet and ankles were padded [...] liner was placed and impacted according to gluing machine feeder's instructions. Any impinging osteophytes were removed. The [...] and laterally. At the same time, the event sales assistant leaned against the thigh to optimize [...] Implant Name Type Inv. Item Serial No. Apparel Merchandiser Lot No. LRB No. Used Action CUP,HIP,ACETB,GRPTN,100,50MM ([id number]) (AUTOREQ) - [id number] IMPLANTS CUP,HIP,ACETB,GRPTN,100,50MM ([id number]) (AUTOREQ) [id number] Left 1 Implanted INSER,ALTRX,NT,[id number] ([id number]) (AUTOREQ) - [id number] IMPLANTS INSER,ALTRX,NT,[id number] ([id number]) (AUTOREQ) [id number] Left 1 Implanted STEM,CRL2,STD,SZ11 ([id number]) (AUTOREQ) - [id number] IMPLANTS STEM,CRL2,STD,SZ11 ([id number]) (AUTOREQ) [id number] Left 1 Implanted BALL,ATC,BRN,+5MM,32MM ([id number]) (AUTOREQ) - [id number] IMPLANTS BALL,ATC,BRN,+5MM,32MM ([id number]) (AUTOREQ) [id number] Left 1 Implanted * OR Attestation - [...] PM EDT Discharge Summary Patient Name: Alyssa Stuatrult Patient Age: 68 y.o. Language: Armenian Race: White Ethnicity: Not nor Admit date: 02/04/2014 Discharge date and time: 02/06/2014 Attending Physician: Steff Holland MD Discharge Physician: Steff Holland MD Follow-up Recommendations for Providers: Please see patient discharge instructions for additional details. Inpatient Provider Contact Information: Steff Holland MD Joints: [phone] After hours and weekends, call [facility] Belt Polisher, , and have Orthopedic resident paged. Discharge [...] an outside provider Mikael Salgado D.O. in [place] after she did experience increased left hip pain after shoveling 3 mm months. At that time, The aforementioned Orthopaedic provider did order a left hip MRI scan revealed a cam lesion moderate severe degenerative joint disease. She was advised to seek consultation for possible left hip arthroplasty. She does split her time between [place] and [place] to care for her aging parents essentially spending ~ 6 months in [place] and [place]. She describes her left hip pain as moderate to severe with difficulty putting her shoes and socks on. She does use a cane for assistance and yjok-qtd-rhfpjxf anti-inflammatories. She is just about to start [...] Rate: [67-92] Blood Pressure BP: 140/59 mmHg @puvlowt96@ Respiratory Rate Resp: 16 Resp: [16] SpO2 SpO2: 95 % @ubrhlhuv20@ Art BP BP (Arterial Line): -- Functional [...] The INR should be reported to the [facility] Ortho clinic at [phone], and you will be informed of any [...] bowel movement. You can also take an efml-ple-kuxcmpz medication, miralax if needed to combat constipation. [...] 1. You will have followup appointments at [facility] as indicated in Future Appointment and Orders. Youwill have an xray prior to those appointments so please come to Radiology, desk 3T, 1 hour BEFORE your appointment for those x- rays. (plan to arive at 9:30 am for x-rays) Future Appointments Date Time Provider Department Center 03/11/2014 10:30 AM Betty Dong APRN [facility] If you have questions or concerns: Sunday through Sunday, 8 AM- 5 PM, please call Dr. Holland's office at . If it is after 5 PM or on the weekend, please call and ask for orthopedic resident on-call to be paged. Future Appointments and Orders Future Appointments: Provider: Department: Zhou Phone: Center: 03/11/2014 10:30 AM Betty Dong APRN Orthopaedics [phone] [facility] Joint Appt Questionnaire [facility] Orthopaedics [phone] [facility] Future Orders Please Complete By Expires Referral for Anticoagulation Monitoring [HEM756 Custom] Process Instructions: If no progress note [...] Referral to Home Health - at DISCHARGE [BGK5080 CPT(R)] Process Instructions: Scheduling Instructions: Comments: DOCUMENTATION FOR VNA SERVICES Alyssa Burnham Discharge to own home: [address] [place] [phone] (home) Folder Seamer Automatic's Name: Self In discussion with the attending physician, it is certified that this patient is under their care and that they, or a nurse practitioner, clinical nurse specialist or physician's event sales assistant who is working directly with them, [...] for services as follows: Home Health Agency: [facility] PHONE: [phone] FAX: [phone] Home care orders for Total Hip Replacements: [...] PT/INR results to be reported as follows: [facility] Orthopedic anticoagulation (Coumadin) clinic @ [...] Questions: Responses: Agency name and contact information [facility] Patient location post discharge Home What services are requested Registered Nurse Physical Therapy Start date 02/07/2014 Responsible MD post discharge contact info PCP/[facility] Orthopaedic Service Primary Care Provider: NIRAV TURNER MD [phone] * Plan of Care - Marcelina Liu [...] 4:45 PM EDT Office of Care Management/Clinical Books Salesperson (CRC)/Initial Assessment CRC Todd Matthew RN (pager [phone]) Patient: Alyssa Burnham : 1945 (68 y.o.) Home: [facility] [address]* LOS: 1 day Care reviewed with Dr. [...] directives: Received ?? Insurance coverage: Medicare AB, [place] ?? Admission status: 02/04/14 IPI Order to Admit is appropriate and waiting to be signed by an attending provider; notified Dr. Steff Holland via email. ?? Anticipated barriers to discharge: None ?? Financial concerns: None ?? Identified patient/family concerns r/t discharge: None ?? Application Security Architect referral indicated: No ?? Baseline functional status/mobility: Independent ?? Current home/community services/equipment: Walker ?? Current functional status/mobility: Walker with stand by assist ?? Anticipated discharge date: Tuesday 02/06 ?? Anticipated discharge place: Home into care of friend ?? Home health agency: [facility] RN/PT orders pended. ?? Transportation at discharge: [...] APPROACH performed by Steff Holland MD at [facility] Social History: Patient lives alone, however girlfriend will be staying with her for a week. Home Setup: one level, walk in (3 inch step) shower DME: shower chair, higher toilet seat with arms, cardiology specialist, walker, cane Baseline ADL/Mobility: Independent with ADLS [...] eval Total timed interventions: 0 minutes Pager: [phone] GOOD OROZCO OT 02/05/2014 Occupational Therapy Rehabilitation [...] APPROACH performed by Steff Holland MD at [facility] Social History: Patient is but has a friend to stay with her at d/c. 1 step x 3 to enter. Ind amb NUTRITION ASSOCIATE Precautions/Special Considerations: WBAT L L/E, standard hip [...] treatment: 0 minutes zakiya FIELDS, PT Pager: [phone] * Plan of Care - Sofia Mills [...] Operative Note Patient Name: Alyssa Burnham : [id number] MR#: [id number] Case Date: 02/04/2014 Surgeon: Surgeon(s) and Role: [...] Office Visit Endocrinology at [facility] [place] [address] Cornell Harper MD [facility] [place] [address] Pending Results Name Type Priority Associated Diagnoses [...] MD HEMATOLOGY ORDERABLE S Performing Organization Address City/[facility] Co de Phone Number NOLA LAMBERTIUM * (ABNORMAL) Prothrombin Time (02/06/2014 3:35 AM EDT) PT 17.8(H) 12.5 - 15.5 sec CERNER MILLENNIUM Comment: [facility] Transfusion Committee Guidelines: INR less than [...] Metabolic Panel (non-fasting) (02/06/2014 3:35 AM EDT) [facility] Glucose Lvl 121 60 - [...] the following links into your internet browser. [email or web address] Blood specimen (specimen) 02/06/2014 3:35 AM EDT 02/06/2014 3:56 AM EDT Narrative Resulting Agency Comment Spec In Lab Steff Holland MD CHEMISTRY ORDERABLES [facility] MILLENNIUM * (ABNORMAL) Differential, Automated (02/05/2014 [...] 12.5 - 15.5 sec CERNER MILLENNIUM Comment: [facility] Transfusion Committee Guidelines: INR less than [...] the following links into your internet browser. [email or web address] Blood specimen (specimen) 02/05/2014 3:21 AM EDT 02/05/2014 3:40 AM EDT Narrative Resulting Agency Comment Spec In Lab Steff Holland MD CHEMISTRY ORDERABLES [facility] Advanced Bioimaging SystemsENNIUM * Surgical Pathology Report (02/04/2014 1:10 PM EDT) Surgical Pathology Report ? [facility] ? Provider: ?? STEFF HOLLAND ? Pt. Name: ?? LUKE-JOHANA Mariaelena, ALYSSA Hanna ? Acc #: ?[id number] ?Pt. ? Col Date: ?? 02/04/2014 ? [...] MD PATHOLOGY/CYTOLOGY O RDERANOE Performing Organization Address [facility] Co de Phone Number NOLA AGUILA * Specimen to Pathology (surgical or derm) (02/04/2014 1:10 PM EDT) AP Specimen 02/04/2014 1:10 PM EDT 02/04/2014 1:10 PM EDT Narrative NOLA KRYSTYNACRISTOBAL - 02/04/2014 1:10 PM EDT Specimen requisition ordered. ??Separate Pathology report to follow Steff Holland MD PATHOLOGY/CYTOLOGY O RDERANOE Performing Organization Address [facility] Co de Phone Number NOLA AGUILA [...] EDT 300 mg HYDROmorphone (DILAUDID) 1 mg/mL HVAC TECH 30 mL Intravenous, HVAC TECH ONLY, Starting on Sun02/04/14 at 1515, Until [...] Provider: Sofia Mills RN)1308 (Given - Provider: Marcelian Liu RN) clobetasol (TEMOVATE) 0.05 % cream [...] Mills RN) 0831 (Not Given - Provider: Mareclina Liu RN - Reason: Patient/family refused)2036 (Given [...] Ashly Dong RN - Comment: Done by [facility] Nurse.) sodium chloride 0.9 % [...] 1238 (New Bag - Provider: Kingsley Degroot, SENIOR SOFTWARE QA ANALYST) warfarin (COUMADIN) tablet 5 mg (COMPLETED) 5 [...] 02/04/2014 02/05/2014 02/06/2014 HYDROmorphone (DILAUDID) 1 mg/mL HVAC TECH 30 mL (CANCELED) Intravenous, HVAC TECH ONLY, Starting on Sun02/04/14 at 1515, Until [...] Unit) documented in this encounter Care Teams Lease Analyst Relationship Specialty Start Date End Date Nirav Turner MD [address] [place] [address] PCP - General 06/07/10 03/24/18 documented as of this encounter
--- OUTSIDE RECORDS SUMMARY | 2024-01-29 04:55 | XMS_ITS | Encounter Summary ---
Author Organization [facility] Address [facility] [place] [address] Care Team Providers Care Logistics Operations Manager Name Role Phone Jamarcus Rodriguez MD Primary Care Provider [phone] Encounter Details Date Type Department Care Team (Latest Contact Info) Description 12/29/2013 11:22 AM EDT - 12/29/2013 11:59 PM EDT Hospital En[place] [facility] [place] [place] [id number] Pain in left hip Social History Tobacco [...] Endocrinology at [facility] [place] [address] Cornell Harper MD [facility] [place] MARCIO [address] documented as of this encounter Procedures Procedure [...] thigh documented in this encounter Care Teams Logistics Operations Manager Relationship Specialty Start Date End Date Jamarcus Rodriguez MD [address] [place] [address] PCP - General 06/07/10 03/24/18 documented as of this encounter
--- OUTSIDE RECORDS SUMMARY | 2024-01-29 04:55 | XMS_ITS | Encounter Summary ---
Author Organization [facility] Address [address] [place] [address] Care Team Providers Care Structural Metal Fabricator Apprentice Name Role Phone Unavailable Primary Care Provider Unavailabl e Encounter Details Date Type Department Care Team (Late st Contact Info) Description 11/03/2004 Results Only [facility] [address] [place] [address] Cyndi Lorenz MD Social History Tobacco Use [...] ? ALYSSA DUBOIS ? Accession #: ? [id number] : ? 1945 (Age: 59) ??F ?Collect Date: ? 11/03/2004 Location: ? [facility] ? Receive Date: ? 11/07/2004 Provider: ?CYNDI LORENZ MD Copy to: ? Leigha First ?[facility] ?[address] ?[place], [place] [address] ? Specimen/Source: ?ThinPrep Pap Test, Cervix/Endocervix Last [...] PATHOLOGY ORDER [facility] [address] [place] [address] documented in this encounter Visit Diagnoses Not on filedocumented in this encounter
[2024-01-29 14:56] LABS: HCT 37.8 % (36.0-46.0); HGB 12.8 g/dL (11.2-15.7); MCH 29.6 pg (27.0-33.0); MCHC 33.9 % (32.0-36.0); MCV 87 fL (80-95); MPV 9.2 fL (8.0-11.0); Platelet Count 176 10^3/uL (130-400); RBC 4.33 10^6/uL (3.93-5.22); RDW 13.6 % (11.7-14.6); RDW-SD 43.9 fL; WBC 5.46 10^3/uL (4.4-10.8)
[2024-01-29 15:33] LABS: Anion Gap 9.5 mmol/L (3-11); BUN 23 mg/dL (7-18); CO2 25.5 mmol/L (21.0-32.0); CREATININE 0.8 mg/dL (0.55-1.02); Calcium 9.4 mg/dL (8.5-10.1); Chloride 105 mmol/L (98-107); Estimated GFR 76.31 (mL/min/1.73m2); Glucose 102 mg/dL (74-106); Potassium 3.7 mmol/L (3.5-5.1); Sodium 140 mmol/L (136-145)
== END 2024-01-29 04:32 | disposition home or self-care (01) ==
LOC: LBO 04:32
PROVIDERS: PCP Physician Assistant; Visit Provider Student in an Organized Health Care Education/Training Program
DX: T84.018A Broken internal joint prosthesis, other site, initial encounter (principal); Z96.649 Presence of unspecified artificial hip joint; Z01.818 Encounter for other preprocedural examination
CPT/HCPCS: 36415; 80048; 85027; 93306

== ENCOUNTER 2024-02-05 13:09 | Inpatient (IN) | payer MEDICARE, SELFPAY ==
[2024-02-05] VITALS (29 sets, daily range): BP systolic 91–175; BP diastolic 42–80; PULSE 52–96; RESP 12–25; TEMP 36–36.7; O2SAT 90–99; BMI 31.7
--- NOTE | 2024-02-05 | DI.RAD_ITS ---
Exam(s) XR PELVIS AP EXAM: XR PELVIS AP CLINICAL HISTORY: s/p acetabular revision. TECHNIQUE: 2D digital imaging was performed. COMPARISON: CR XR HIP RT COMPLETE AP PELVIS from 01/16/2024 FINDINGS: Single AP view of the pelvis-hips: Left hip prosthesis appears unchanged. On the right side the femoral component appears unchanged but there appears to been revision of the a cetabular component which is now secured by longer screws. There is also again noted some dystrophic calcification in the soft tissues around the right hip above the level of the greater trochanter, un changed. No evidence of fracture. No evidence of osteomyelitis. No obvious loosening. No obvious dislocatio n of the hips, realized limitations of a single view study. IMPRESSION: As above. DATA REPOSITORY: RADIATION DOSE DELIVERED:
--- NOTE | 2024-02-05 07:43 | HPE_ITS ---
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 The implant liner has dissociated from the acetabular component and she now has ceramic on metal articulation. I have asked her to minimize all mobilization until today in order to decrease the amount of metallic and ceramic debris which may accumulate within the right hip. She was doing fine before this acute change and therefore there is no suspicion of infection. At this point recommend proceeding with revision of the right hip, consisting of the acetabul ar component, liner, and head. I reviewed this surgery with her. I discussed the technical details. I would perform this from an anterior approach although her previous incisions were from a lateral approach. I discussed risk to include bleeding, infection, pain, stiffness, fracture, need for repeat procedures, dislocation or instability, weakness, damage to nerves or vessels, damage to muscle and tendons, loosening, blood clot. Despite these risk, she elects to proceed. History of Present Illness History of Present Illness Chief Complaint: Right hip pain Narrative: Alyssa is a 78-year-old active female who I saw previously for knee arthritis. After the last visit where we were contemplating moving forward knee replacement she felt a pop in her right hip. She had some immediate pain. She had an x-ray ordered by her primary care physician. This showed what appeared to be a liner dissociation with femoral head on acetabular component articulation. I called Alyssa to discuss results of this x-ray. Given this significant failure I recommended revision. She had had a previous head and liner revision for this exact same problem few years ago. Therefore, the assumption is that the acetabular component locking mechanisms likely damaged. She is having notable pain I recommended to the point that she minimize any ambulation. For that reason, given the difficulties mobilization, I discussed most of this decision making over the phone and then once again today. She denies any changes to her health. She denies any new numbness or tingling. She denies any sick contacts. Denies any fevers or chills. She has no chest pain or shortness of breath. She has history of carotid bruit but has had recent carotid ultrasound without significant disease. Review of Systems All systems reviewed & are unremarkable except as noted in HPI and below PFSH All Active Problems Prosthetic hip implant failure (Acute) Osteoarthritis of left knee (Acute) Synvisc injection: 06/29/2023 Allergic asthma (Acute) GERD (gastroesophageal reflux disease) (Chronic) Mitral valve prolapse (Acute) History of revision of total hip arthroplasty (Acute) Onychomycosis (Acute) Hyperlipidemia (Acute) Hypertension (Chronic) Right carotid bruit (Acute) Hypothyroidism (Chronic) Chronic pain of left knee (Acute) Medical History Thyroid nodule Diplopia Strabismus Vitamin D deficiency Social History Smoking/Tobacco Use Status: Former Tobacco Use Quit Date: 07/16/64 Smoking risk assessment performed?: Yes Alcohol Intake: never Drug use: Rarely Substance use type: does not use Housing: house Do you feel safe at home: Yes Do you feel safe in your relationship?: Yes Meds Allergies and Home Medications Allergies Allergy/AdvReac Type Severity Reaction Status Date / Time Penicillins Allergy Severe Swelling/Ed Verified 02/05/24 11:51 brittany Sulfa (Sulfonamide Allergy Severe Headache Verified 02/05/24 11:51 Antibiotics) iodine Allergy Intermediate Swelling/Ed Verified 02/05/24 11:51 brittany Latex, Natural Rubber Allergy Intermediate Skin Rash Verified 02/05/24 11:51 shellfish derived Allergy Intermediate Swelling/Ed Verified 02/05/24 11:51 brittany perfume AdvReac Severe Wheezing Verified 02/05/24 11:51 bee stings Allergy Severe Anaphylaxis Uncoded 02/05/24 11:51 Home Medications ?Medication ?Instructions ?Recorded ?Confirmed ?Type acyclovir 800 mg tablet 800 mg PO TID 06/12/23 02/04/24 History albuterol sulfate 90 mcg/actuation 2 puff inhalation Q6H PRN 06/12/23 02/04/24 History aerosol inhaler (ProAir HFA) cholecalciferol (vitamin D3) 50 3,000 unit PO DAILY 06/12/23 02/04/24 History mcg (2,000 unit) capsule cyanocobalamin (vitamin B-12) 1,000 mcg PO DAILY 06/12/23 02/04/24 History 1,000 mcg capsule epinephrine 0.3 mg/0.3 mL 0.3 mg IM ONCE 06/12/23 02/04/24 History injection, auto-injector levothyroxine 50 mcg capsule 50 mcg PO DAILY 06/12/23 02/05/24 History naproxen 500 mg tablet 500 mg PO BID 06/12/23 02/04/24 History omeprazole 20 mg capsule,delayed 20 mg PO DAILY 06/12/23 02/05/24 History release sertraline 50 mg tablet 50 mg PO DAILY 06/12/23 02/05/24 History clobetasol 0.05 % topical cream 1 applic topical DAILY 02/04/24 02/04/24 History estradiol 0.01% (0.1 mg/gram) 1 g vaginal DIRECTED 02/04/24 02/04/24 History vaginal cream (Estrace) Exam Const General: cooperative, healthy appearing, comfortable and no acute distress Resp Auscultation: clear to auscultation bilaterally Cardio Rate: regular rate Rhythm: regular rhythm Extrem Other: Evaluation of the right hip shows a shortened extremity. There is pain and crepitus with any attempted range of motion. No overlying skin changes pain or signs of infection. Results Imaging Imaging Studies: X-ray of the right hip and pelvis shows articulation of the femoral head against the acetabular component. This is obviously eccentric. She also had recent echocardiogram which shows systolic ejection fraction of 65% with no other significant valvular disease. Labs Labs: Labs from outside facility were reviewed. No particular abnormalities are identified.
[2024-02-05] MEDS: Celecoxib 200 MG CAP 400 MG PO (11:57)
[2024-02-05] MEDS: Acetaminophen 500 MG TAB 1000 MG PO ×3 (11:57→20:47)
--- NOTE | 2024-02-05 12:19 | W.ANESPRE ---
General Info Date of Service Date Performed: 02/05/24 Height: 5 ft 2 in Weight: 78.7 kg Body Mass Index (BMI): 31.7 Surgical Procedure: Operation Date: 02/05/24 15:05 Proposed Procedure Side Surgeon p Hip Total Hip Revision Anterior -Acetabular Component* Right Josias Rivas MD Meds Allergies and Home Medications Allergies Allergy/AdvReac Type Severity Reaction Status Date / Time Penicillins Allergy Severe Swelling/Ed Verified 02/05/24 11:51 brittany Sulfa (Sulfonamide Allergy Severe Headache Verified 02/05/24 11:51 Antibiotics) iodine Allergy Intermediate Swelling/Ed Verified 02/05/24 11:51 brittany Latex, Natural Rubber Allergy Intermediate Skin Rash Verified 02/05/24 11:51 shellfish derived Allergy Intermediate Swelling/Ed Verified 02/05/24 11:51 brittany perfume AdvReac Severe Wheezing Verified 02/05/24 11:51 bee stings Allergy Severe Anaphylaxis Uncoded 02/05/24 11:51 Home Medication ?Medication ?Instructions ?Recorded acyclovir 800 mg tablet 800 mg PO TID 06/12/23 albuterol sulfate 90 mcg/actuation 2 puff inhalation Q6H PRN 06/12/23 aerosol inhaler (ProAir HFA) cholecalciferol (vitamin D3) 50 3,000 unit PO DAILY 06/12/23 mcg (2,000 unit) capsule cyanocobalamin (vitamin B-12) 1,000 mcg PO DAILY 06/12/23 1,000 mcg capsule epinephrine 0.3 mg/0.3 mL 0.3 mg IM ONCE 06/12/23 injection, auto-injector levothyroxine 50 mcg capsule 50 mcg PO DAILY 06/12/23 naproxen 500 mg tablet 500 mg PO BID 06/12/23 omeprazole 20 mg capsule,delayed 20 mg PO DAILY 06/12/23 release sertraline 50 mg tablet 50 mg PO DAILY 06/12/23 clobetasol 0.05 % topical cream 1 applic topical DAILY 02/04/24 estradiol 0.01% (0.1 mg/gram) 1 g vaginal DIRECTED 02/04/24 vaginal cream (Estrace) Current Visit Medications: Current Medications Generic Name Dose Route Start Last Admin Trade Name Freq PRN Reason Stop Dose Admin Acetaminophen 1,000 mg 02/05/24 06:00 02/05/24 11:57 Acetaminophen 500 Mg Tab PO 03/05/24 23:59 1,000 mg PREOP RENETTA Administration Celecoxib 400 mg 02/05/24 06:00 02/05/24 11:57 Celecoxib 200 Mg Cap PO 03/05/24 23:59 400 mg PREOP RENETTA Administration Ringer's Solution 1,000 mls @ 80 mls/hr 02/05/24 06:00 IV 03/05/24 23:59 INFUSION RENETTA Tranexamic Acid/Sodium Chloride 1,000 mg in 100 mls @ 600 mls/hr 02/05/24 06:00 IVPB 03/05/24 23:59 PREOP RENETTA Cefazolin Sodium/Dextrose 2 gm in 50 mls @ 100 mls/hr 02/05/24 06:00 Ancef Duplex IVPB 02/05/24 16:00 PREOP RENETTA IV Miscellaneous Supplies 1 each 02/05/24 06:00 Iv Access IV 03/05/24 23:59 DIRECTED RENETTA Sodium Chloride 0 ml 02/05/24 06:00 Normal Saline Flush 10 Ml Syr IV 03/05/24 23:59 PRN PRN Sodium Chloride 0 ml 02/05/24 06:00 Normal Saline 10 Ml Vial IJ 03/05/24 23:59 DIRECTED PRN Sterile Water 0 ml 02/05/24 06:00 Water,Injection,Sterile 10 Ml Vial IJ 03/05/24 23:59 DIRECTED PRN PFSH Active Problems Active Problems: Problem Status Onset Code Prosthetic hip implant failure Acute T84.018A, Z96.649 Osteoarthritis of left knee Acute M17.12 Allergic asthma Acute J45.909 GERD (gastroesophageal reflux disease) Chronic K21.9 Mitral valve prolapse Acute I34.1 History of revision of total hip arthroplasty Acute Z96.649 Onychomycosis Acute B35.1 Hyperlipidemia Acute E78.5 Hypertension Chronic I10 Right carotid bruit Acute R09.89 Hypothyroidism Chronic E03.9 Chronic pain of left knee Acute M25.562, G89.29 Medical History Medical History Thyroid nodule Diplopia Strabismus Vitamin D deficiency Tobacco Smoking/Tobacco Use Status: Former Tobacco Use Alcohol Alcohol Intake: never Substance Use Substance use: Rarely Substance use type: does not use Vital Signs and Lab Results Vital Signs Most Recent Vital Signs in EMR: Most Recent Vital Signs Temp Pulse Resp BP Pulse Ox 36.7 C 74 16 175/80 H 96 02/05/24 11:26 02/05/24 11:26 02/05/24 11:26 02/05/24 11:26 02/05/24 11:26 Lab Results Blood Type / Crossmatch: No Data to Display Complete Blood Count: White Blood Count 5.46 10^3/uL (4.4-10.8) 01/29/24 14:44 Red Blood Count 4.33 10^6/uL (3.93-5.22) 01/29/24 14:44 Hemoglobin 12.8 g/dL (11.2-15.7) 01/29/24 14:44 Hematocrit 37.8 % (36.0-46.0) 01/29/24 14:44 Platelet Count 176 10^3/uL (130-400) 01/29/24 14:44 Complete Metabolic Panel: Sodium 140 mmol/L (136-145) 01/29/24 14:44 Potassium 3.7 mmol/L (3.5-5.1) 01/29/24 14:44 Chloride 105 mmol/L (98-107) 01/29/24 14:44 Carbon Dioxide 25.5 mmol/L (21.0-32.0) 01/29/24 14:44 BUN 23 mg/dL (7-18) H 01/29/24 14:44 Creatinine 0.8 mg/dL (0.55-1.02) 01/29/24 14:44 Est GFR (CKD-EPI 2020) 76.31 (mL/min/1.73m2) 01/29/24 14:44 Calcium 9.4 mg/dL (8.5-10.1) 01/29/24 14:44 Glucose 102 mg/dL (74-106) 01/29/24 14:44 Liver Function Panel: No Data to Display Coagulation Panel: No Data to Display Cardiac Panel: No Data to Display Arterial Blood Gas: No Data to Display Venous Blood Gas: No Data to Display Pancreas Panel: No Data to Display Thyroid Panel: No Data to Display Infectious Disease: No Data to Display Blood Cultures: No Data to Display Toxicology Panel: No Data to Display Imaging and Studies Imaging and Studies Study information below may be from another EMR and interpreted by another provider. Please see original notes in EMR for more complete details. Echocardiogram Summary: Conclusion Normal left ventricular systolic function. EF is 65%. No segmental wall motion abnormalities are noted Normal right ventricular size and function Both atria are normal in size Aortic valve is sclerotic without stenosis or regurgitation There is no additional significant valvular disease Estimated right ventricular systolic pressure is 26 mmHg 01/29/24 Carotid Artery Summary:: IMPRESSION: Mild plaque seen bilaterally in the level of the carotid bulbs and proximal internal carotid arteries, but without elevated velocities. This indicates the amount of stenosis is less than 50 percent. Visually I estimate the amount of stenosis at approximately 20 percent bilaterally. Antegrade flow is demonstrated in both vertebral arteries in the neck 01/16/24 Anesthesia Assessment and Plan Anesthesia History Personal History: No History of Anesthesia Complications Family History: Family History Unknown Exercise Tolerance Exercise Tolerance: Metabolic Equivalents>4 Pertinent Negatives Pertinent Negatives: No Symptoms of GERD, No Major Cardiovascular Symptoms or Complaints, No Major Pulmonary Symptoms or Complaints and No History of CVA/TIA Cardiac & Pulmonary Exam Cardiac Exam: Normal S1/S2 Heart Sounds Pulmonary Exam: Clear Bilateral Breath Sounds Implantable Cardiac Device Does patient have a Pacemaker or an ICD?: No Airway Exam Known Difficult Airway: No Mallampati Class: 2 Mouth Opening: Normal (> 3cm) Thyromental Distance: Greater than 3 cm Neck Range of Motion: Full ROM Neck Circumference: Normal Teeth Condition: Normal Dentition ASA Classification ASA Score: ASA 2 Emergency Case?: No NPO Status NPO Status: NPO Clears >2 hours, Solids >8 hours Anesthesia Plan Resuscitation Status: Full Code Anesthesia Technique: Spinal Anesthesia Airway Planned: Natural Airway Monitors Used: Standard Monitors
[2024-02-05] MEDS: Lactated Ringers 1,000 ML 80 ML IV ×2 (12:21→16:48)
[2024-02-05] MEDS: ceFAZolin 2 GM/50 ML BAG IVPB (13:00)
[2024-02-05] MEDS: TRANEXAMIC ACID/SOD. CHL. 1,000 MG/100 ML BAG 600 MG IVPB (13:12)
--- NOTE | 2024-02-05 15:00 | DI.RAD_ITS ---
Exam(s) XR HIP RT IN OR EXAM: XR HIP RT IN OR CLINICAL HISTORY: right prosthetic hip failure TECHNIQUE: 2D and realtime digital imaging was performed. CONTRAST MATERIAL: Refer to procedure report. COMPARISON: CR XR HIP RT COMPLETE AP PELVIS from 01/16/2024 FINDINGS: Fluoroscopy was provided for Dr. Rivas during the performance of a right total hip revision. Ple ase refer to the procedure report for complete details. Ka,r=5.27 mGy IMPRESSION: RADIATION DOSE DELIVERED: 0.0 0.0 0
--- NOTE | 2024-02-05 15:15 | ROE_ITS ---
Date of service: 02/05/24 Time of Service: 13:15 Operative Note Operative Note DATE OF PROCEDURE: 02/05/24 PRE-OP DIAGNOSIS: Right Prosthetic Hip Failure POST-OP DIAGNOSIS: same (Broken Liner, Acetabular Retroversion, Acetabular Bone Loss, Ceramic Head Wear) PROCEDURE: Revision of Right Acetabular Component SURGEON: Josias Rivas MANAGEMENT ACCOUNTS MANAGER: Apryl White ANESTHESIA TYPE: Spinal Refer to Anesthesia Record ESTIMATED BLOOD LOSS: 1,000 PATHOLOGY: none sent TOURNIQUET TIME: 0 COMPLICATIONS: None Patient was transported to: PACU Patient's condition: stable Implants: [employer] Redapt Acetabular Component, 54mm [employer] Dual Mobility Acetabular Liner, [id number] [employer] Dual Mobilty Liner, 33r67iz Depuy 11/13 Taper Ceramic Head, 28+3mm Indications: Alyssa is a 78-year-old female who presented initially for her knee. She had knee arthritis and was discussing knee replacement. However, soon after leaving the appointment she developed the acute onset of right hip pain with a squeaking sensation. Her primary care provider ordered x-rays which demonstrate failure of her right hip prosthesis with articulation of the ceramic head against the metal acetabular surface. She had previous hip replacement back in 2003 followed by a revision of the head and the liner a few years ago which was also complicated with a dislocation event. Given these x-rays I recommend we proceed with revision of the acetabular component urgently given she was articulating between the ceramic head and the metal acetabular component. I discussed the tentacle details of the surgery. I explained the risks of the procedure to include, but not limited to, bleeding, infection, pain, stiffness, fracture, damage to nerves and vessels, damage to muscles and tendons, loosening, instability, leg length inequality, need for repeat procedure, blood clot and cardiopulmonary demise. Despite these risks, Alyssa elected to proceed. Findings: There is some metallosis seen within the hip. This was debrided sharply and evacuated. The liner was fractured at the superior margin and spun into a vertical position. There is significant metallic wear of the ceramic head. The acetabular component was retroverted as well. There was acetabular bone loss anteriorly over the anterior wall from about 2:00 to 6:00. A revision acetabular component was able to be placed with a dual mobility system. Procedure Description: Alyssa was greeted in the preoperative holding area where the correct side was identified and marked. The consent was reviewed with the patient and signed. The history and physical was updated. All questions were answered. She was taken back to the operating room. A spinal anesthestic was then administered. The feet were wrapped with cast padding and Coban and then placed into the boot liners and then into the boots. Care was taken to protect the skin and make sure the heels were fully down and the boots were stable. The patient was then positioned onto the HANA table. Both legs were held in a neutral position. SCDs were applied. The patient was then slid down onto a peroneal post. Prophylactic antibiotics in the form of Cefazolin were administered. 1g of Tranxemic Acid was given intravenously within 30 minutes of incision. The right leg was then prepped with Chloraprep and draped in a standard fashion. A second prep with Chloraprep was performed prior to placement of a shower-curtain type drape with Iodine impregnated skin protection. A timeout to confirm correct identity, side and site, procedure, allergies, anesthesia, and medical concerns was performed. An obliquely oriented incision was made starting lateral to the ASIS and running distal over the Tensor Fascia Gabriella (TFL) muscle belly toward the fibular head, approximately 10cm. The skin and soft tissue was dissected sharply, through Kannan?s fascia, and to the fascia of the TFL. With the fascia and superior border of the IT band identified, the fascia was incised with a new knife just above any perforators from the IT band. The TFL muscle belly was bluntly dissected away from the fascia and moved laterally. The fat between TFL and rectus was identified to ensure the dissection was not within the TFL. Blunt dissection created space between abductors and the capsule and retractor was placed over the lateral femoral neck. The fibers of the rectus femoris tendon were identified and these were freed from the anterior capsule. A second cobra retractor was placed around the medial femoral neck. The TFL was further retracted laterally to show the deep fascia. Careful dissection through this layer identified three main crossing vessels of the lateral femoral circumflex. These were cauterized in multiple locations and then cut without any noticeable bleeding. The TFL was further released bluntly from the deep fascia to expose anterior hip capsule and fat The Jarek orthopaedic retractor was then placed beneath the TFL and against sartorius and medial soft tissues to protect and retract the soft tissues. A T-capsulotomy was then performed starting at the superior lateral acetabulum and moving distally to the intertrochanteric ridge. These capsular flaps were tagged with a No. 1 Vicryl and elevated from within. Immediately, there was a waite of metallic, hernandez/black-tinged fluid. No signs of purulence. The capsular flaps were released to the shoulder of the lateral neck and to the lesser trochanter to give excellent visualization of the proximal femur and the hip component. There was a loose piece of bone embedded in soft tissue anterior laterally which was seen previously on x-rays. The capsule was elevated off of the lateral portion of the hip but I avoided going up onto the trochanter given the previous surgeon this region and the attachment of the abductors. The hip was then dislocated after removing the medial capsule from the femoral attachment. The femoral head was removed. There was notable metallic wear on the ceramic head. The acetabular liner was turned vertical with fracturing of the superior aspect of the liner with notable wear in this region adjacent to th e lip. The liner was then removed. The hip was further inspected and there showed to be notable acetabular bone loss adjacent to the anterior aspect of the component from approximately 2:00 to 6:00. There is some metallosis in this area as well. The cup was notably retroverted and with manipulation of the cup there seem to be some slight motion anteriorly although not grossly loose. I then used the acetabular blade system to remove bony attachments to the acetabular component. Short blade was followed by the long blade. I had to work around the spikes of this particular style implant. Once this was done I was able to thread and insertion handle and then use this to remove the cup. There was some bone loss at the apex but none around the periphery. A more aggressive synovectomy was then performed of any synovium that appeared inflamed or had a metallic wear. This was aggressively removed. There was notable bleeding from the pelvis at this point. Unfortunately his neck step took some time to position and reamed the pelvis yet it was still bleeding significantly from within the pelvis. I do not see any arterial bleeding during this time. Once all the synovium was cleared I had good visualization of the acetabulum and began reaming. I started with a 50 mm reamer. This had no purchase. I was able to medialize the acetabular component with plenty of medial wall. I sequentially reamed by 1 mm up to 53 mm. A 53 mm I had some purchase into the columns although there was still some absent anterior bone. Once again, there is notable bleeding coming from this cancellous bone of the pelvis. A 54 mm Ramírez [employer] Nephew readapt cup was then selected. Prior to insertion the cup was thoroughly irrigated and a portion of the periarticular cocktail consisting of ropivacaine, epinephrine, clonidine, and ketorolac, was injected around the acetabulum. Then, the acetabular component was then impacted in a position of about 40-45 degrees of abduction and 15-20 degrees of anteversion, using the patient?s anatomy as the ultimate landmark. Fluoroscopy was used to confirm this. There was good grain broker and market operator of the acetabular component and the inserting handle was removed. However, the bone quality was relatively poor and there was acetabular loss anteriorly. Therefore, I placed 4 screws in total. The first screw was placed into the posterior column. There is a cancellous screw in excellent purchase holding the acetabular component into the bone. I then placed 3 additional screws, locking. To place superiorly, 1 anteriorly and posteriorly. The other was placed more inferiorly. The acetabular liner, Ramírez [employer]hew readout do mobility liner, 54 x 42mm, was inserted. There was no soft tissue interposition. The liner was then impacted into position and confirmed to be well-seated. The femur was then extended and slightly externally rotated. With manipulation of the soft tissues and visualization of the trunnion. The trunnion was cleaned. It was wiped down with a clean lap. I then inserted the due mobility construct onto the trunnion. This was assembled on the back table with a 28+3 mm head inserted into a 42 x 28 mm dual mobility liner. This was malleted onto the trunnion and was checked to make sure was inserted completely. The hip was then reduced and there is no interposed tissue. The periosteum and surrounding tissue was injected with remaining portion of the ruddy-articular cocktail. The proximal femur was irrigated as well as the deep tissues. Stability was confirmed with no shuck at 90 degrees of external rotation and 30 degrees of extension. No impingement through range of motion arc. Final x-ray images were obtained with fluoroscopy to confirm adequate positioning and no intraoperative fracture. There was minimal blood loss during the reaming portion of the case. After the liner was placed the blood loss stopped. She was symptomatic initially but responded well. Nevertheless, plan for hemoglobin check in PACU. The deep tissues were thoroughly irrigated with Surgiphor, betadine solution. This was allowed to sit in the wound for 3 minutes before being thoroughly irrigated out with normal saline. The TFL fascia was finally closed with a No. 2 Stratafix, barbed suture. Deep tissues were then reapproximated with 0 Vicryl and a running 2-0 Vicryl. The skin was closed with a running 4-0 Monocryl in a subcuticular fashion. This was reinforced with skin glue. A Mepilex silver dressing was applied. At the end of the case, all counts were correct. Alyssa was transferred to the hospital bed without difficulty and suffering no apparent complication except for the above expected blood loss. She was on any pressors at the time of transfer to the PACU. Alyssa has a good prognosis. Physical therapy will start today and without restrictions, weight-bearing as tolerated. Aspirin 81mg BID will be used for DVT prophylaxis.
[2024-02-05 15:37] LABS: HCT 35.1 % (36.0-46.0); HGB 11.7 g/dL (11.2-15.7)
--- NOTE | 2024-02-05 16:02 | W.ANESPOSTOP ---
Postoperative Evaluation Date, Time and Location Date Performed: 02/05/24 Time Performed: 16:02 Patient Location: PACU Vital Signs Most Recent Imported Vital Signs: Most Recent Vital Signs Temp Pulse Resp BP Pulse Ox 36.5 C 79 19 94/42 L 95 02/05/24 15:50 02/05/24 15:51 02/05/24 15:51 02/05/24 15:51 02/05/24 15:51 Pain Score Most Recent Pain Score: Most Recent Pain Score Pain Level 0 02/05/24 15:50 Assessment Mental Status: Awake (Alert & Oriented to Patient Baseline) Airway and Respiratory Function: Patent airway with normal (patient baseline) respiratory exam Cardiovascular Function: Hemodynamically Stable Hydration Status: Adequately Hydrated Nausea & Vomiting: No Nausea or Vomiting Pain: Pt. Denies Any Pain Peripheral Nerve Block: Patient did not receive a nerve block
--- NOTE | 2024-02-05 17:15 | RT.EKG_ITS ---
APPROVED REPORT Exam: Resting ECG Reason for Exam: SYNCOPE AT BEDSIDE Patient Location: I HR:74 bpm ECG Measurements Heart Rate 74 AXIS MD 146 P 39 QRSd 89 QRS 31 QT 409 T 39 QTc 454 Conclusion Sinus rhythm...normal P axis, V-rate 60- 99 Normal Electrocardiogram
[2024-02-05] MEDS: Lactated Ringers 500 ML 1000 ML IV (17:21)
--- NOTE | 2024-02-05 17:40 | IN_ITS ---
PT Notes Inpatient Physical Therapy Evaluation Date: 02/05/2024 Referring Doctor: Dr. Josias Rivas PT Orders: PT CONSULT: s/p right acetabular revision Precautions: standard, without restriction weightbearing as tolerated Patient Profile/Admitting Diagnosis: S/p right acetabular revision , Alyssa is a 78-year-old female s/p right acetabular revision today 02/05/2024. She has history of AMBER many years ago and had a revision a few years ago and then further complications of more recently requiring this revision. She has been seeing Ortho for her left knee with plans to have left AMBER prior to this incident happening with her hip. She had her surgery today later in the day and lives alone and thus was admitted to inpatient about 30 minutes ago. PMHX: Active Problems Prosthetic hip implant failure (Acute) Osteoarthritis of left knee (Acute) Synvisc injection: 3Allergic asthma (Acute) GERD (gastroesophageal reflux disease) (Chronic) Mitral valve prolapse (Acute) History of revision of total hip arthroplasty (Acute) Onychomycosis (Acute) Hyperlipidemia (Acute) Hypertension (Chronic) Right carotid bruit (Acute) Hypothyroidism (Chronic) Chronic pain of left knee (Acute) Medical History Thyroid nodule Diplopia Strabismus Vitamin D deficiency Social History/Home Situation: Alyssa lives alone, she has 1 step getting into home, she does have a walk-in shower , she does also report that she has a step to get into bed. Current Functional Limitations: Prior to this current surgery she was ambulating with 2 walking sticks or a SPC, she has walked with a RW before however I do suspect she will need a new RW as she states this was very old. Equipment Owned/DME: Likely she will need an RW and is unclear if she has a functioning 1 at home. Subjective: Patient gives a history of what she has been dealing with with her right hip she had a AMBER several years ago with a revision a few years ago and while seeking Ortho appointment for left knee OA and plans for left knee TKA she had severe pain in her right hip and when evaluated deemed necessary for revision. Objective: General Observation: Alyssa is in bed appearing quite comfortable as just being transferred from surgical day. She has an IV started in her right arm. She states to me that she does have some incontinence and was on a kendra, with the nurse we decided when she stood we would pull on some depends. Mental Status: A and O x3 Pain: 5/10 Vital Signs:monitored by nursing staff, after rapid response vitals were taken by the response team. ROM: Right Upper Extremity: WFL Left Upper Extremity: WFL Right Lower Extremity: In bed full DF, PF, hip flexion to 90 , sitting at edge of bed full knee extension at least 90 knee flexion, Left Lower Extremity: WFL with limited left knee extension -10 and flexion to 90 Strength: Right Upper Extremity: WFL Left Upper Extremity: WFL Right Lower Extremity: DF 4, PF not tested, hip flexion at least 2+, knee extension 3 Left Lower Extremity: WFL, some discomfort with left knee extension Sensation: NT Bed Mobility/Transfers: Supine to sit at edge of bed patient able to perform independently but slowly and with some struggle Sit to stand from bed to RW, patient has difficulty putting weight through the right LE as left LE also not very strong and needs correction of hand placement and she struggles requiring min assist of 1. Once standing at edge of bed at RW we are able to pull up her depends we asked her to stand tall and lean forward on her RW. While standing she reports that she is feeling lightheaded, she is asked to stand tall and at that time proceeds to have loss of consciousness. She was at the bedside and was being stabilized with a gait belt she was seated back s ecurely onto the bed and supported her upper body while we called rapid response and at that time she was transitioned to the rapid response team. Gait: NT Balance: Static Sitting: good Dynamic Sitting: good Static Standing: poor Dynamic Standing: NT Special Tests: Mobility Limitations Standardized Measure [facility] AM-PAC 6 clicks Basic Mobility Inpatient Short Form: Raw Score: 9 Standardized Score: 30.55 CMS Score: 81.38 Informed Consent/Education: Patient instructed in purpose of PT consult and plan of care. Assessment: Patient is a 78year old female referred to physical therapy services with the diagnosis of S/P right acetabular revision 02/05/2024-day 0. Patient presents with clinical signs and symptoms consistent with S/P right acetabular revision 02/05/2024-day 0 and during evaluation had episode of syncope where she was safely lowered to edge of bed and supported her until rapid response team arrived. She has the following impairment level findings: Difficulty with transfers, weakness of both LE with weakness of right hip, altered gait requiring AD and unable to evaluate today due to episode of syncope, decreased mobility of both LE . Impairments are contributing to the following functional limitations: Difficulty with transfers, altered balance, altered gait and overall decreased function. Patient does live alone. [facility] score. Patient is assessed as a Moderate 50594 complexity based on the following: History: as above, pt lives alone, has previous right hip surgery, left knee OA Examination: limited due to episode of syncope today Presentation:evolving Decision Making: moderate Goals: Goals X1 week 1. Supine-Sit independent 2. Sit-Supine independent 3. Sit-Stand independent 4. Stand-Sit independent 5. Bed-Chair independent 6. Chair-Bed independent 7. Gait ambulating with RW at least 100 feet independently 8. Stairs able to maneuver stairs 1 at a time independently 9. Independent with home exercise program 10. Balance advance to at least fair standing static and dynamic Plan of Care/Treatment Plan: 1-2x/day, 7 days/week x 1 week. Plan of care has been reviewed with the GUN TESTER providing the service under Physical Therapy direction. Initiate Physical Therapy intervention for strengthening, bed mobility, transfers, gait, stairs, balance training, use of assistive device. DISCHARGE RECOMMENDATIONS: [X] Home with services PT vs SNF for continued rehab TREATMENT CODE/TIME:22718 25' 5:00-5:25 Please sign an return this page within 30 days if you agree with the above POC. Thank you! Physician Signature Date [facility]
[2024-02-05 20:23] LABS: HCT 31.5 % (36.0-46.0); HGB 10.3 g/dL (11.2-15.7)
[2024-02-05] MEDS: Celecoxib 200 MG CAP PO (20:47)
[2024-02-05] MEDS: ceFAZolin 1 GM/50 ML BAG IVPB (20:47)
[2024-02-06 03:33] VITALS: BP 128/63; PULSE 65; RESP 17; TEMP 36; O2SAT 93
[2024-02-06] MEDS: Levothyroxine 50 MCG TAB PO (05:04)
[2024-02-06] MEDS: ceFAZolin 1 GM/50 ML BAG IVPB ×2 (05:04→12:09)
[2024-02-06 06:31] LABS: HCT 29.6 % (36.0-46.0); HGB 9.9 g/dL (11.2-15.7); MCH 29.2 pg (27.0-33.0); MCHC 33.4 % (32.0-36.0); MCV 87 fL (80-95); MPV 9.7 fL (8.0-11.0); Platelet Count 192 10^3/uL (130-400); RBC 3.39 10^6/uL (3.93-5.22); RDW 13.5 % (11.7-14.6); RDW-SD 43.2 fL; WBC 14.04 10^3/uL (4.4-10.8)
[2024-02-06 06:47] LABS: Anion Gap 11.5 mmol/L (3-11); BUN 21 mg/dL (7-18); CO2 24.5 mmol/L (21.0-32.0); Calcium 9.1 mg/dL (8.5-10.1); Chloride 105 mmol/L (98-107); Estimated GFR 58.39 (mL/min/1.73m2); Glucose 145 mg/dL (74-106); Potassium 4.6 mmol/L (3.5-5.1); Sodium 141 mmol/L (136-145)
[2024-02-06 07:35] VITALS: BP 126/52; PULSE 75; RESP 20; TEMP 36.7; O2SAT 92
[2024-02-06] MEDS: Acetaminophen 500 MG TAB 1000 MG PO ×3 (08:09→21:00)
[2024-02-06] MEDS: Celecoxib 200 MG CAP PO ×2 (08:10→21:00)
[2024-02-06] MEDS: Dexamethasone 4 MG TAB PO (08:10)
[2024-02-06] MEDS: Aspirin E.C. 81 MG TABEC PO ×2 (08:10→21:00)
[2024-02-06] MEDS: Omeprazole 20 MG CAPCR PO (08:11)
[2024-02-06] MEDS: Sertraline 50 MG TAB PO (08:11)
--- NOTE | 2024-02-06 08:44 | PDOC.CMIN ---
Date of service: 02/06/24 Time of Service: 08:44 Care Management Initial Assmt Initial Assessment Reason for Hospitalization: total hip revision Functional Status/Living Situation Patient Presentation: Alyssa was sitting up in bed when CM met with her. She was pleasant in manner and engaged well with CM. Alyssa was admitted for a revision of her total hip arthroplasty. Surgery went well and she has been out od bed ambulating with PT. She will likely be discharged home tomorrow with new home health PT. Alyssa lives alone with her 2 cats Abimael and Pawan. She uses a cane or a walker for ambulatory assistance as needed and is independent with ADLs. Alyssa does require some help with errands and cannot drive at this time due to issues with her leg. She informed CM that she has good friends who help her out with these tasks and anything else she needs. 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) Instrumental Activities of Daily Living (ADLs): Independent and Requires support with Groceries and Transportation Medications Medication Management: No Issues/Barriers identified Physical Functioning/Mobility Assistive Device: cane and walker Advance Directives Advance Directives: Do you have an Advance Directive: N 03/09/17 10:34 AD On File at [facility]: N 01/04/16 19:43 Date Asked 02/05/24 01/30/24 15:24 AD Date Reviewed COLST On File at [facility] COLST Date Scanned Code Status Resuscitation Status Full Code Portal Pt does not currently have a portal and education provided: No Portal Education: Other (not from area) Insurance Coverage/Financial Issues Insurance: Medicare [facility] supplement Care Team Visit Care Team Role Provider Type Cairna Davis Primary Care Provider NON-[facility] STAFF PHYSICIAN InPatient [facility] Other Providers OTHER Josias Rivas MD Admit Provider [facility] STAFF PHYSICIAN Attending Provider Discharge Potential Discharge Needs: Surgical F/U Appt (orthopedics) Anticipated Barriers to Discharge: None Identified Patient/Family Education Needs: Review discharge instructions, discuss Ask Me Three Transportation: Private vehicle Plan: Anticipate Alyssa will be discharged home with no new services when medically cleared. She will follow up with her surgeon and plan of care and transport with family/friend. CM will continue too support discharge needs PFSH All Active Problems Prosthetic hip implant failure (Acute) Osteoarthritis of left knee (Acute) Synvisc injection: 06/29/2023 Allergic asthma (Acute) GERD (gastroesophageal reflux disease) (Chronic) Mitral valve prolapse (Acute) History of revision of total hip arthroplasty (Acute) Onychomycosis (Acute) Hyperlipidemia (Acute) Hypertension (Chronic) Right carotid bruit (Acute) Hypothyroidism (Chronic) Chronic pain of left knee (Acute) Medical History Thyroid nodule Diplopia Strabismus Vitamin D deficiency Social History Smoking/Tobacco Use Status: Former Tobacco Use Quit Date: 07/16/64 Smoking risk assessment performed?: Yes Alcohol Intake: never Drug use: Rarely Substance use type: does not use Housing: house Do you feel safe at home: Yes Do you feel safe in your relationship?: Yes SDOH(Care Management) Screening Will the Patient Participate in the Screening?: Unable to obtain
--- NOTE | 2024-02-06 09:45 | PTTR_ITS ---
PT Notes Visit Reasons: Prosthetic Hip Implant Failure Inpatient Physical Therapy Treatment Note [facility] Date: 02/06/24 PRECAUTIONS: WBAT RLE SUBJECTIVE: Alyssa states that she is feeling good this morning. She was able to walk to the chair with nursing without any dizziness. OBJECTIVE: ? Therapeutic Activities (02109v2): Direct one-on-one instruction in dynamic activities to improve functional performance. ? BED MOBILITY/TRANSFERS? Sit-stand: SBA. Cues for technique. Performed 5 reps throughout session, with good carryover. ? Stand-sit: SBA ? Provided skilled cues and instruction on performance and technique throughout. ? AMBULATION? Assistive Device: FWW. Issued walker for home and fitted to patient height. ? Weight bearing: WBAT Assist: CGA-Supervision ? Distance:? 150'x2 ? Deviation: cues for FWW management, obstacle navigation/ safety awareness ? STAIRS: instructed in stair management. Able to manage 4 steps x 3 with bilat rails, min cues and step to pattern with CGA. ADLs: Patient requests use of sneakers due to left ankle instability and pain. She is unable to independently don socks and shoes on the right. Is able to perform on the left with increased time to perform. She owns sock amy, survey workers supervisor and long-handled shoe horn; reviewed appropriate technique for home completion, which she's comfortable with. Can review this with HH PT upon return home as well. ? ASSESSMENT/PLAN:? Tolerated ambulation and stair management well. Requires continued PT intervention during hospitalization, with transition to HH PT once medically stable to continue progress toward established goals. TREATMENT CODE/TIME: [id number] ([id number]) DISCHARGE RECOMMENDATION: Home with HH PT once medically stable
[2024-02-06 11:34] VITALS: BP 125/53; PULSE 87; RESP 18; TEMP 36.5; O2SAT 93
--- NOTE | 2024-02-06 11:38 | PHA.REVIEW2 ---
Pharmacy Admission Review Admission Clinical Review Admission Pharmacy Review: Prosthetic hip implant failure (Acute) Penicillins Allergy (Severe, Verified 02/05/24 11:51) Swelling/Edema Sulfa (Sulfonamide Antibiotics) Allergy (Severe, Verified 02/05/24 11:51) Headache iodine Allergy (Intermediate, Verified 02/05/24 11:51) Swelling/Edema Latex, Natural Rubber Allergy (Intermediate, Verified 02/05/24 11:51) Skin Rash shellfish derived Allergy (Intermediate, Verified 02/05/24 11:51) Swelling/Edema perfume Adverse Reaction (Severe, Verified 02/05/24 11:51) Wheezing bee stings Allergy (Severe, Uncoded 02/05/24 11:51) Anaphylaxis Resuscitation Status Full Code Height 5 ft 2 in Weight 78.7 kg Pharmacy Admission Review Renal Dosing Renal Dosing: BUN 21 mg/dL (7-18) H 02/06/24 06:07 Creatinine 1.0 mg/dL (0.55-1.02) 02/06/24 06:07 Medications needing adjustments: Reviewed (CrCl 46.5 mL/min) List of meds needing interventions: Current medications are okay Anticoagulation Anticoagulation: Hgb 9.9 g/dL (11.2-15.7) L 02/06/24 06:07 Hct 29.6 % (36.0-46.0) L 02/06/24 06:07 Plt Count 192 10^3/uL (130-400) 02/06/24 06:07 Creatinine 1.0 mg/dL (0.55-1.02) 02/06/24 06:07 DVT Prophylaxis: Reviewed (SCDs/TEDs, Hgb decreased from 10.3 to 9.9) Opiate Usage Evaluate Pain Scale/Pains Meds: Reviewed (PRN hydromorphone and oxycodone - no doses given so far) Scheduled Bowel Reg ordered if on Opiates?: No (PRN docusate) Relevant Labs Relevant Labs: Sodium 141 mmol/L (136-145) 02/06/24 06:07 Potassium 4.6 mmol/L (3.5-5.1) 02/06/24 06:07 Chloride 105 mmol/L (98-107) 02/06/24 06:07 Electrolytes, C-Reactive P, ESR: Reviewed (glucose 204 at 1133) Cardiac Review Cardiac Review: Blood Pressure 125/53 1134 Blood Pressure 126/52 0735 Blood Pressure 100/80 0333 BP, HR, EF%: Reviewed (HR WNL) QTc Review QTc: Reviewed (EKG report pending) IV to PO Switch IV Medications: Reviewed (cefazolin, hydromorphone, ondansetron) Home Meds Home Med List reviewed: Intervened Relevent Home Meds Not ordered & why?: Acyclovir, vitamin D3, clobetasol cream, vitamin B12, Epipen (PRN), and naproxen called nursing to see if patient can have Estrace cream brought in (non formulary) and to see what days of the week patient uses. Per nursing, they will ask if patient is not discharged home today. Current Meds Current Medication Order Review: Reviewed Pharmacy Antibiotic Review Relevant Labs: WBC 14.04 10^3/uL (4.4-10.8) H 02/06/24 06:07 Temperature 36.5 C Temperature 36.7 C Temperature 36.0 C Temperature 36.7 C Comments: Cefazolin for post op (patient is POD#1). Stop time of today at 1200.
[2024-02-06] MEDS: Normal Saline Flush 10 ML SYR IV (12:10)
--- NOTE | 2024-02-06 13:38 | PT.INTREAT ---
PT Notes Visit Reasons: Prosthetic Hip Implant Failure Inpatient Physical Therapy Treatment Note [facility] Date: 02/06/24 PRECAUTIONS: WBAT RLE SUBJECTIVE: Alyssa states that she is exhausted. She has been up with nursing to go to the bathroom once since am session, and notes general fatigue. Hip is sore, but overall feeling good. OBJECTIVE: ? Therapeutic Exercises ([id number]): ? BED MOBILITY/TRANSFERS? Sit-stand: SBA. ? Stand-sit: SBA ? Provided skilled cues and instruction on performance and technique throughout. ? AMBULATION? ? ?for improved activity tolerance: ? Assistive Device: FWW. ? Weight bearing: WBAT Assist: CGA-Supervision ? Distance:? 25' ? Deviation: poor left foot clearance ? ADLs: Able to independently doff sneakers with modified technique. Requires assist to doff right sock. Instruction in the following exercises: ? ? standing static balance, no UE support, wide CÉSAR, CGA throughout, 3x 10 seconds seated LAQ 10x each supine ankle pumps 10x supine quad sets 10x supine glute sets 10x ? ASSESSMENT/PLAN:? Tolerated ambulation and stair management well. Requires continued PT intervention during hospitalization, with transition to HH PT once medically stable to continue progress toward established goals. TREATMENT CODE/TIME: [id number] ([id number]) DISCHARGE RECOMMENDATION: Home with HH PT once medically stable
--- NOTE | 2024-02-06 14:09 | CHAPLAIN ---
Alyssa said this is her fourth hip operation. She has a revision of earlier hip surgery. Yesterday when getting up with PT, Alyssa passed out. She doesn't remember anything other than beginning to feel light headed. A 'rapid response' was called, and Alyssa recovered quickly. Alyssa said she is tired and she's waiting to see Dr. Rivas today to see if she'll go home today or tomorrow. I explained my role and offered support.
[2024-02-06] MEDS: Docusate Sodium 100 MG CAP PO (14:57)
[2024-02-06 20:53] VITALS: BP 132/62; PULSE 74; RESP 18; TEMP 36.6; O2SAT 96
[2024-02-06] MEDS: Melatonin 3 MG TAB PO (21:03)
--- NOTE | 2024-02-06 21:15 | W.PM.PROGNOT ---
Date of Service Date of service: 02/06/24 Time of Service: 13:30 Assessment and Plan Assessment and plan (1) History of revision of total hip arthroplasty: Status: Acute Assessment and plan: POD#1 s/p revision of right hip acetabular component, liner and femoral head due to liner fracture and displacement. She is doing well although with a syncopal event yesterday evening. She has been able to mobilize. She has some mild pain but larger complaints of balance and instability. Continue with PT - WBAT without positioning restrictions. Likely d/c to home with home health services in the next 1-2 days. (2) Prosthetic hip implant failure: Status: Resolved (3) Acute blood loss anemia: Status: Acute Assessment and plan: Hgb dropped but vitals stable. Continue to follow. Subjective Subjective Interval history since last seen: Alyssa reports to be quite tired. She was able to work with physical therapy and with nursing and walked some today. However, she still feels relatively unbalanced and not steady on her feet. However, she is not having any overwhelming signs of lightheadedness. She did have a syncopal event last night but responded quickly when she returned to bed. Hemoglobin has been stable although it did drop from acute blood loss anemia. Vital signs been stable. Exam Narrative Exam Narrative: Resting in the bed. No acute distress. Alert and oriented x 3. Right hip dressings clean dry and intact. She is very guarded about the right hip. However, she is able to relax and allow me to demonstrate passive hip flexion, internal rotation, external rotation without any significant pain. Sensation intact light touch over the femoral sided nerve distributions including the lateral femoral cutaneous nerve. Palpable DP and PT pulse. Objective Last Vital Signs Temp 36.6 C 02/06/24 20:53 Pulse 74 02/06/24 20:53 Resp 18 02/06/24 20:53 BP 132/62 02/06/24 20:53 Pulse Ox 96 02/06/24 20:53 Laboratory Results - last 24 hr 02/06/24 06:07 WBC 14.04 H RBC 3.39 L Hgb 9.9 L Hct 29.6 L MCV 87 MCH 29.2 MCHC 33.4 RDW 13.5 Plt Count 192 MPV 9.7 Sodium 141 Potassium 4.6 Chloride 105 Carbon Dioxide 24.5 Anion Gap 11.5 H BUN 21 H Creatinine 1.0 Est GFR (CKD-EPI 2020) 58.39 Glucose 145 H Calcium 9.1 Time Spent with Patient Time Spent with Patient: 25-34 minutes Time was spent: preparing to see the patient(eg.review tests), obtaining and/or reviewing separately otained hiistory, ordering medications,tests, procedures, indepentently interpreting results and counseling the patient
[2024-02-07 01:25] VITALS: BP 158/60; PULSE 74; RESP 20; TEMP 37; O2SAT 99
[2024-02-07] MEDS: Levothyroxine 50 MCG TAB PO (06:22)
[2024-02-07 07:36] VITALS: BP 130/48; PULSE 70; RESP 15; TEMP 36.4; O2SAT 96
[2024-02-07 07:53] LABS: HCT 26.4 % (36.0-46.0); HGB 8.8 g/dL (11.2-15.7); MCH 29.5 pg (27.0-33.0); MCHC 33.3 % (32.0-36.0); MCV 89 fL (80-95); MPV 9.5 fL (8.0-11.0); Platelet Count 149 10^3/uL (130-400); RBC 2.98 10^6/uL (3.93-5.22); RDW 14.1 % (11.7-14.6); RDW-SD 45.5 fL; WBC 6.79 10^3/uL (4.4-10.8)
[2024-02-07] MEDS: Sertraline 50 MG TAB PO (08:03)
[2024-02-07] MEDS: Celecoxib 200 MG CAP PO (08:03)
[2024-02-07] MEDS: Aspirin E.C. 81 MG TABEC PO (08:03)
[2024-02-07] MEDS: Dexamethasone 4 MG TAB PO (08:03)
[2024-02-07] MEDS: Acetaminophen 500 MG TAB 1000 MG PO ×2 (08:03→13:49)
[2024-02-07] MEDS: Omeprazole 20 MG CAPCR PO (08:03)
[2024-02-07] MEDS: oxyCODONE 5 MG TAB PO ×2 (08:04→13:49)
[2024-02-07 08:06] LABS: Anion Gap 9.5 mmol/L (3-11); BUN 26 mg/dL (7-18); CO2 26.5 mmol/L (21.0-32.0); CREATININE 0.9 mg/dL (0.55-1.02); Calcium 8.8 mg/dL (8.5-10.1); Chloride 106 mmol/L (98-107); Estimated GFR 66.26 (mL/min/1.73m2); Glucose 106 mg/dL (74-106); Potassium 3.7 mmol/L (3.5-5.1); Sodium 142 mmol/L (136-145)
[2024-02-07 11:21] VITALS: BP 123/51; PULSE 67; RESP 16; TEMP 36; O2SAT 96
--- NOTE | 2024-02-07 11:34 | PT.INTREAT ---
Date of service: 02/07/24 Time of Service: 09:30 PT Notes Visit Reasons: Prosthetic Hip Implant Failure Inpatient Physical Therapy Treatment Note [facility] Date: February 07, 2024 PRECAUTIONS:WBAT RLE SUBJECTIVE: Alyssa notes that she remains exhausted. Notes following her PT session yesterday afternoon she was wiped out. However knows that she needs to get stronger. Was so proud of how much she was able to do yesterday afternoon. OBJECTIVE: Alyssa up sitting in recliner agreeable to PT intervention this morning. Sit-stand: SBA. ? Stand-sit: SBA ? Provided skilled cues and instruction on performance and technique throughout. ? AMBULATION? ? ?for improved activity tolerance: ? Assistive Device: FWW. ? Weight bearing: WBAT Assist: CGA-Supervision ? Distance:? 50' ? Deviation: poor left foot clearance ? Instruction in the following exercises: ? ? seated LAQ 10x each supine ankle pumps 10x quad sets 10x seated glute sets 10x ? ASSESSMENT/PLAN:? Tolerated ambulation well. Will transition to HH PT upon discharge. Patient to be discharged this afternoon. TREATMENT CODE/TIME: [id number] minutes [id number] minutes (9:30-9:55 am) DISCHARGE RECOMMENDATION: Home with HH PT once medically stable?
--- NOTE | 2024-02-07 13:04 | DSE_ITS ---
Date of service: 02/07/24 Time of Service: 12:45 DS: Diagnosis Discharge Diagnosis (1) History of revision of total hip arthroplasty: Status: Acute (2) Prosthetic hip implant failure: Status: Resolved (3) Acute blood loss anemia: Status: Acute Discharge Plan Disposition Patient Disposition: Home W/Home Health Services Condition: Improving Discharge Details Reason For Visit: Prosthetic Hip Implant Failure Admit Date/Time: 02/05/24 13:09 Admit Provider: Josias Rivas Attending Provider: Josias Rivas Primary Care Provider: Carina Davis Hospital Course Hospital Course: Alyssa is a 78-year-old female who was admitted to the hospital following revision hip arthroplasty on the right side. She has done well from the procedure. She did have a notable acute blood loss anemia with hemoglobin drop. Her vital signs remained stable except for 1 syncopal episode on the night of surgery. Since then she has been on the mobile physical therapy and with nursing without significant abnormality. She has continued balance and weakness but was able to mobilize never discharged home, cleared by physical therapy. Home Meds and New Rx's Prescriptions: New celecoxib 200 mg capsule 200 mg PO BID PRN (Reason: pain) Qty: 60 1RF aspirin 81 mg tablet,delayed release (DR/EC) 81 mg PO BID Qty: 60 0RF acetaminophen 500 mg tablet 1,000 mg PO Q8H PRN (Reason: pain) Qty: 90 3RF docusate sodium [Colace] 100 mg capsule 100 mg PO BID PRNQty: 10 0RF oxycodone 5 mg tablet 5 mg PO Q4H PRNQty: 15 0RF Continued albuterol sulfate [ProAir HFA] 90 mcg/actuation HFA aerosol inhaler 2 puff inhalation Q6H PRN epinephrine 0.3 mg/0.3 mL auto-injector 0.3 mg IM ONCE Rx Instructions: as a single dose; may repeat once acyclovir 800 mg tablet 800 mg PO TID cholecalciferol (vitamin D3) 50 mcg (2,000 unit) capsule 3,000 unit PO DAILY naproxen 500 mg tablet 500 mg PO BID omeprazole 20 mg capsule,delayed release(DR/EC) 20 mg PO DAILY sertraline 50 mg tablet 50 mg PO DAILY cyanocobalamin (vitamin B-12) 1,000 mcg capsule 1,000 mcg PO DAILY clobetasol 0.05 % cream 1 applic topical DAILY estradiol [Estrace] 0.01 % (0.1 mg/gram) cream 1 g vaginal DIRECTED Rx Instructions: for 14 days levothyroxine 50 mcg tablet 50 mcg PO DAILY Patient Comments: TAKE ONE TABLET BY MOUTH EVERY DAY BEFORE MEALS Discharge Instructions Additional Instructions: Total Hip Discharge Instructions Activity: The most important activity is to walk. You should try to take short walks a few times a day. You have no restrictions on movement or positioning, but do not try to force what you do. You will find some stiffness and weakness with hip flexion (lifting your knee). Do not try to strengthen this too early, continue to practice walking and stairs and this will come. Dressing: Keep the surgical dressing in place for at least one week. After the first week it may be removed and replace with light gauze and tape or nothing. It may get wet after 3 days but avoid soaking the dressing. If it gets wet, just lightly pat dry. It is important to always keep some gauze between skin folds, especially when you are sitting. Spend some time with the wound exposed when you are lying flat as the incision does wrinkle onto itself. Medications: - You should take Tylenol and an anti-inflammatory Celebrex as your primary pain control medications. If the Celebrex is too expensive or not covered, please call the office for another alternative (Advil/Ibuprofen or Naproxen/Aleve). - You have been prescribed a stronger pain medication Oxycodone for breakthrough pain, take as needed as prescribed. - You should continue your stomach acid reduction agent omeprazole to help reduce stomach acid and reflux. - You will be taking Aspirin 81mg twice a day for DVT prevention unless instructed otherwise. - If you have constipation you should take Colace or Miralax (both [id number]). It takes most people 3-4 days to have a bowel movement. Follow-up: 2 weeks If you have any acute concerns or questions, please do not hesitate to contact the office at [phone]. You may contact Dr. Rivas with any questions after hours through the hospital at [phone] or on his cell phone at [phone]. 1. Encounter Date and Reason I certify that Alyssa Peace was seen by Josias Rivas MD on 02/07/24 and that I had a [id number] encounter with this patient that meets the physician face to face encounter requirements. 2. Clinical Findings Supporting Skilled Need and Homebound Status I certify that home health services are medically necessary, include either intermittent chcf and/or physical/speech therapy, and that this patient is homebound in that absences from the home require considerable and taxing effort and are infrequent or of short duration, or are attributable to the need to receive medical care. [X] (a) Attached documentation from encounter provides clinical findings suppo rting skilled need and homebound status (including what assistance patient requires to leave the home). The encounter with the patient was in whole, or in part, for the following medical condition, which is the primary reason for home health care: Prosthetic Hip Implant Failure Residential: Physical Therapy: Alyssa would benefit from physical therapy and Occupational Therapy as she recovers from a revision right hip replacement. She has notable weakness, stiffness, and gait dysfunction including balance issues following the surgery. She is weightbearing as tolerated. She has no positional restrictions although range of motion should not be push through any pain. Speech Therapy: Homebound: Alyssa is homebound. He is unable to leave her home unassisted. 3. Certification and Authentication I certify that I composed the above information based on my clinical judgement relating to this patient's medical condition and, if applicable, clinical findi ngs communicated to me by the NPP or inpatient physician who performed the Home Health Referral. All further orders will be obtained through Dr. Rivas Referrals: Josias Rivas MD [ [facility] STAFF PHYSICIAN] - Activity:: Activity as Tolerated Equipment/Supplies:: Walker Diet:: As Tolerated Discharge Orders Discharge Orders: Discharge Order (Routine); Ordered 02/07/24 Ordered By: Josias Rivas DS: Summary Time Spent with Patient providing and/or coordinating discharge services: Greater than 30 minutes Status at Discharge Functional status at discharge: uses cane/walker Overall status at discharge: patient is progressing back to baseline Mental Status: mental status grossly normal Speech and Movement: speech and movement normal Mood: congruent mood Affect: normal affect Quality:SDOH Health Related Social Needs: No Data to Display Exam Narrative Exam Narrative: Sitting up in the chair. No acute distress. Alert and orient x 3. Evaluation the right lower extremity shows some mild ecchymosis around the incision. Incision is clean dry and intact. No significant pain with internal and external rotation and flexion of the hip passively. Sensation intact light touch over the femoral and sciatic nerve distributions. Psych Mental Status: mental status grossly normal Speech and Movement: speech and movement normal Mood: congruent mood Affect: normal affect DS: Data Vitals/I&O Vitals and I&O: Vital Signs Temperature 36.0 C L 02/07/24 11:21 Temperature Source Tympanic 02/07/24 11:21 Pulse 67 02/07/24 11:21 Pulse Rhythm Regular 02/07/24 09:55 Pulse 78 02/05/24 16:07 Respiratory Rate 16 02/07/24 11:21 Respiratory Effort Normal 02/07/24 09:55 Respiratory Depth Normal 02/07/24 09:55 Respiratory Pattern Normal 02/07/24 09:55 Blood Pressure 123/51 L 02/07/24 11:21 Blood Pressure Mean 77 02/05/24 16:06 Pulse Oximetry 96 02/07/24 11:21 Respiratory End-tidal CO2 30 02/05/24 16:07 Oxygen Delivery Method Room Air 02/07/24 11:21 Oxygen Flow Rate 0 02/07/24 11:21 Pain Level 0 02/07/24 11:21 Comment RN notified of bp 02/07/24 07:36 Intake & Output 02/06/24 02/07/24 02/07/24 23:59 11:59 23:59 Intake Total 50 / 100 Balance 50 / -500 Intake: IV 50 / 100 Other: Urine Color Yellow Urine Appearance Clear Comment Patient up to toilet as well as incontinent large amount of urine Voiding Methods Toilet Toilet Data Completed and Pending Labs on day of discharge: Labs from last 24 hours 02/07/24 07:47 WBC 6.79 RBC 2.98 L Hgb 8.8 L Hct 26.4 L MCV 89 MCH 29.5 MCHC 33.3 RDW 14.1 Plt Count 149 MPV 9.5 Sodium 142 Potassium 3.7 Chloride 106 Carbon Dioxide 26.5 Anion Gap 9.5 BUN 26 H Creatinine 0.9 Est GFR (CKD-EPI 2020) 66.26 Glucose 106 Calcium 8.8 PFSH All Active Problems Acute blood loss anemia (Acute) Osteoarthritis of left knee (Acute) Synvisc injection: 06/29/2023 Allergic asthma (Acute) GERD (gastroesophageal reflux disease) (Chronic) Mitral valve prolapse (Acute) History of revision of total hip arthroplasty (Acute) Onychomycosis (Acute) Hyperlipidemia (Acute) Hypertension (Chronic) Right carotid bruit (Acute) Hypothyroidism (Chronic) Chronic pain of left knee (Acute) Medical History Thyroid nodule Diplopia Strabismus Vitamin D deficiency Social History Smoking/Tobacco Use Status: Former Tobacco Use Quit Date: 07/16/64 Smoking risk assessment performed?: Yes Alcohol Intake: never Drug use: Rarely Substance use type: does not use Housing: house Do you feel safe at home: Yes Do you feel safe in your relationship?: Yes Time Spent with Patient Time Spent with Patient: <45 minutes Time was spent: preparing to see the patient(eg.review tests), ordering medications,tests, procedures, indepentently interpreting results and counseling the patient
--- NOTE | 2024-02-07 13:12 | PDOC.CMDIS ---
Date of service: 02/07/24 Time of Service: 13:12 LACE Index Scoring Tool Questions: Length of Stay (in days): 2 Was the patient admitted via the E.D.?: Yes E.D. Visits: 0 Answers: Total Score: 5 Risk of Readmission: Low Risk Care Management Discharge Plan Reason for Hospitalization: Prosthetic hip implant failure Discharge Plan: Alyssa returned home today with new orders for HH PT. CM sent information to [facility], as requested. Her friend drove her home via private vehicle. She will follow up with her PCP and discharge plan of care. She is happy to be going home. Patient/Family Education Needs: Review discharge instructions and limitations, discussion of self care needs including ask me three. Services Needed at Discharge: Home Health Care Services (new HH PT, [facility]) SDOH Health Related Social Needs: No Data to Display
[2024-02-07] MEDS: Docusate Sodium 100 MG CAP PO (13:50)
== END 2024-02-07 14:04 | disposition home health service (06) | DRG 467 ==
PROVIDERS: Nurse Anesthetist, Certified Registered; Admitting Provider Student in an Organized Health Care Education/Training Program; PCP Physician Assistant; Visit Provider Student in an Organized Health Care Education/Training Program
PROC: 0SRA03A Replacement of Right Hip Joint, Acetabular Surface with Ceramic Synthetic Substitute, Uncemented, Open Approach (ICD-10-PCS; CPT 27137; principal; 2024-02-05 14:45)
DX: T84.010A Broken internal right hip prosthesis, initial encounter (principal); D62 Acute posthemorrhagic anemia; Z96.641 Presence of right artificial hip joint; Z79.899 Other long term (current) drug therapy; E03.9 Hypothyroidism, unspecified; I10 Essential (primary) hypertension; E78.5 Hyperlipidemia, unspecified; E55.9 Vitamin D deficiency, unspecified; I34.1 Nonrheumatic mitral (valve) prolapse; K21.9 Gastro-esophageal reflux disease without esophagitis; J45.909 Unspecified asthma, uncomplicated; B35.1 Tinea unguium; E04.1 Nontoxic single thyroid nodule
CPT/HCPCS: 27137; 36415; 80048; 85027; 86850; 86900; 86901; 97110; 97162; 97530; 72170; 73501; 85014; 85018; 93005; 93010; C1776; J0690; J1100; J1596; J2001; J2250; J2371; J2405; J2704; J8540

== ENCOUNTER 2024-02-18 11:38 | Outpatient (CLI) | payer MEDICARE, SELFPAY ==
--- NOTE | 2024-02-18 11:00 | DI.RAD_ITS ---
Exam(s) XR HIP RT AP LAT ONLY EXAM: XR HIP RT AP LAT ONLY INDICATION: 1ST POST OP R HIP REVISION. COMPARISON: No exams were available for comparison TECHNIQUE: 2D digital imaging was performed. Two views. FINDINGS: Stable alignment of total right hip prosthesis. No abnormal surrounding bony lucencies. Heterotopic calcification again noted in the soft tissues. DATA REPOSITORY: RADIATION DOSE DELIVERED:
== END 2024-02-18 11:39 | disposition home or self-care (01) ==
LOC: DIORS 11:38
PROVIDERS: PCP Physician Assistant; Referring Provider Physician Assistant; Visit Provider Student in an Organized Health Care Education/Training Program
DX: Z47.1 Aftercare following joint replacement surgery; Z96.641 Presence of right artificial hip joint
CPT/HCPCS: 73502

== ENCOUNTER → 2024-03-20 10:45 | Outpatient (BNVA) | payer MEDICARE, SELFPAY | PROVIDERS: PCP Physician Assistant; Referring Provider Physician Assistant; Visit Provider Student in an Organized Health Care Education/Training Program | DX: Z47.1 Aftercare following joint replacement surgery (principal); Z96.641 Presence of right artificial hip joint ==

== ENCOUNTER → 2024-05-01 10:25 | Outpatient (BNVA) | payer MEDICARE, SELFPAY | PROVIDERS: PCP Physician Assistant; Referring Provider Physician Assistant; Visit Provider Student in an Organized Health Care Education/Training Program | DX: Z47.1 Aftercare following joint replacement surgery (principal); Z96.641 Presence of right artificial hip joint | CPT/HCPCS: 99024 ==

== ENCOUNTER 2024-05-29 16:50 | Outpatient (REF) | payer MEDICARE, SELFPAY ==
--- OUTSIDE RECORDS SUMMARY | 2024-05-29 16:52 | XMS_ITS | Clinical Summary ---
Author Organization [facility] [place] [address] Care Team Providers Care Audio Visual Facilities Engineer Name Role Phone Carina Davis Primary Care Provider [phone] Allergies Active Allergy Reactions Criticality Noted Date [...] 550 mg by mouth as needed. Active UNABLE TO FIND Med Name: Jone beats Active calcium carbonate/vitamin D3 (VITAMIN D-3 ORAL) Take by mouth. Active cyanocobalamin, vitamin B-12, (VITAMIN B-12 ORAL) Take by mouth. A ctive ascorbic acid, vitamin C, (Vitamin C) 100 mg tablet Take 1,000 mg by mouth daily. Active Active Problems Problem Noted Date Diagnosed [...] Encounters Date Type Department Care Team Description 04/14/2024 3:00 PM EDT Office [place] [address] Cornell Harper MD Thyroid nodule; Vitamin D deficiency 04/14/2024 Travel 04/11/2024 Travel from Last 3 Months Immunizations Name Administration Dates Next Due Influenza Vaccine, Whole 04/15/2008 Pneumococcal 23-Valent Polysaccharide (Pneumovax 23) 08/16/2008 Family History Medical History Relation Comments Anesthesia Reaction Mother Cancer Paternal Grandmother Relation Status Comments Mother Paternal Grandmother Social History Tobacco Use Types Packs/Day Years Used Date Smoking Tobacco: Former Cigarettes Smokeless Tobacco: Never Tobacco Cessation:Counseling Given: Not Answered Comments:in college Alcohol Use Standard Drinks/Week Comments No 0 (1 standard drink = 0.6 oz pur e alcohol) Sex and Gender Information Value Date Recorded Sex Assigned at Not on file Gender Identity Not on file Sexual Orientation Not on file Last Filed Vital Signs Vital Sign Reading Time Taken Comments Blood Pressure 134/57 04/14/2024 2:35 PM EDT Pulse 81 04/14/2024 2:35 PM EDT Temperature 36.7 ??C (98.1 ??F) 04/14/2024 2:35 PM ED T Respiratory Rate 20 04/14/2024 2:35 PM EDT Oxygen Saturation 95% 04/14/2024 2:35 PM EDT Inhaled Oxygen Concentration - - Weight 78 kg (171 lb 15.3 oz) 04/14/2024 2:35 PM EDT Height 157.5 cm (5' 2) 04/14/2024 2:35 PM EDT Body Mass Index 31.45 04/14/2024 2:35 PM EDT Plan of Treatment Health Maintenance Due Date Last Done Comments Hepatitis C Screening 1963 Tetanus/Diphtheria/Pertussis Vaccines (1 - Tdap) 07/15 Zoster vaccine (1 of 2) 1997 Bone Density Scan 2012 Pneumoccocal Vaccine: 65+ (2 of 2 - PCV) 2012 08/16/2008 Covid-19 Vaccine ( - season) 2024 Influenza (Flu) vaccine (1 o f 1 - Influenza standard series) 03/16/2024 04/15/2008 Medical Devices Implanted Type Area Program Management Professional Device Identifier Shelf Expiration Date Model / Serial / Lot Cup,Hip,Acetb, Grptn,100,50mm ([id number]) (Autoreq) - [id number] Implanted:Qty: 1 on 02/04/2014 by Lance Holland MD at [facility] IMPLANTS Left: Hip 10/14/2023 0 / / [id number] Inser,Altrx,Nt ,[id number] ([id number]) ([employer]oreq) - [id number] Implanted:Qty: 1 on 02/04/2014 by Lance Holland MD at [facility] IMPLANTS Left: Hip 10/13/2018 0 / / [id number] Stem,Crl2,Std, [id number] ([id number]) ([employer]oreq) - [id number] Implanted:Qty: 1 on 02/04/2014 by Lance Holland MD at [facility] IMPLANTS Left: Hip 06/14/2018 [id number] / / [id number] Ball,Atc,Brn,+ 5mm,32mm ([id number]) ([employer]oreq) - [id number] Implanted:Qty: 1 on 02/04/2014 by Lance Holland MD at [facility] IMPLANTS Left: Hip 10/13/2018 0 / / [id number] Inser,Altrx,10 d,+4,[id number] ([id number]) ([employer]q) - [id number] Implanted:Qty: 1 on 04/01/2018 by Noemi Hudson MD at [facility] IMPLANTS Right: Hip [employer] - [employer]W [employer] 03/16/2019 0 / / [id number] Head,Fem,S-Rom ,Aluma,32+0 ([id number]) - [id number] Implanted:Qty: 1 on 04/01/2018 by Noemi Hudson MD at [facility] IMPLANTS Right: Hip [employer] [facility] [facility] - [employer]REW HEM[employer] 03/16/2019 [id number] / / [id number] Procedures Procedure Name Priority Date/Time Associated Diagnosis Comments LAB SCAN 04/15/2024 12:00 AM EDT from Last 3 Months Results * Scan Doc: Lab (04/15/2024 12:00 AM EDT) Narrative 04/15/2024 12:00 AM EDT Ordered by an unspecified provider. Scanning Provider MEDIA MGR SCAN EXT O RDR/RSLT from Last 3 Months Advance Directives Documents on File Type Date Recorded Patient Headrig Sawyer Expl anation Advance Directives and Livin g Will 09/14/2010 10:08 AM * Full Code (Latest Code Status on File) Date Activated Date Inactivated Comments 04/01/2018 4:21 PM 04/02/2018 7:42 PM Question Answer Comments Does patient have capacity to make decision: Yes * Full Code Date Activated Date Inactivated Comments 02/04/2014 2:49 PM 02/06/2014 4:27 PM Care Teams Audio Visual Facilities Engineer Relationship Specialty Start Date End Date Carina Davis PA [address] [place] [address] PCP - General Family Medicine 03/02/22
--- OUTSIDE RECORDS SUMMARY | 2024-05-29 16:52 | XMS_ITS | Encounter Summary ---
Author Organization [facility] [place] [address] Care Team Providers Care President Financial Institution Name Role Phone Carina Davis Primary Care Provider [phone] Encounter Details Date Type Department Care Team (Latest Contact Info) Description 04/11/2024 Travel Social History Tobacco Use Types Packs/Day [...] on filedocumented in this encounter Care Teams President Financial Institution Relationship Specialty Start Date End Date Carina Davis PA [address] [place] [id number] PCP - General Family Medicine 03/02/22 documented as of this encounter
--- OUTSIDE RECORDS SUMMARY | 2024-05-29 16:52 | XMS_ITS | Encounter Summary ---
Author Organization [facility] Address [facility] [place] [address] Care Team Providers Care [employer] Name Role Phone Carina Davis Primary Care Provider [phone] Encounter Details Date Type Department Care Team (Late st Contact Info) Description 04/14/2024 3:00 PM EDT Office [place] [id number] Cornell Harper MD [facility] [place] [address] Thyroid nodule; Vitamin D deficiency Social History [...] Mass Index 31.45 04/14/2024 2:35 PM EDT documented in this encounter Patient Instructions * Patient Instructions* Cornell Harper MD - 04/14/2024 3:00 PM EDT Early December have thyroid ultrasound done at [facility], call their radiology to schedule. I sent over the order I will ask our staff to contact you no later than July to set up a telehealth visit to review the radiology images. If they don't reach you call [phone] to schedule. We will decide at that time whether another thyroid nodule biopsy is necessary documented in this encounter Progress Notes * Cornell Harper MD - 04/14/2024 3:00 PM EDT Images from the original note were not included. Ms. Alyssa BlandObed is an 78 y.o. female who presents for ongoing care of thyroid nodules Former patient of Dr Pineda, a fellow who has graduated November 2022 Dr Pineda and I performed FNA of right 1.6 cm TIRADS4 thyroid nodule, nondiagnostic At last visit in late December 2022 the nodule measured 1.45cm x 0.86cm x 1.36cm Interval history: She also has a history of hypothyroidism and Vitamin D deficiency which Dr Pineda was treating in the past. Patient believes that her PCP Carina Davis has been monitoring this recently, and patient was told in December-January of this year her thyroid function tests were normal. She had repeat US neck recently was done because the patient had a carotid US done and wanted to have them both done because she was overdue for thyroid nodule followup. The neck US was done at [facility],showing right TIRADS4 1.7 cm thyroid nodule ([id number]). No irregular neck lymph nodes seen She notes that there have been other active health issues including recent complicated hip surgery in which there was significant blood loss. She is also due for knee surgery in the fairly near future. She is taking levothyroxine 50 mcg daily as well as Ca/Vitamin D3 supplement Patient Active Problem List Diagnosis 04/01/2018 S/P [...] by mouth as needed., Disp: , Rfl: levothyroxine (Synthroid) 50 mcg tablet, Take 1 [...] Tylenol in 24 hours., Disp: , Rfl: atorvastatin (LIPITOR) 40 mg Tablet, Take 40 mg by mouth daily., Disp: , Rfl: clobetasol (TEMOVATE) 0.05 % [...] 220 mcg/Actuation inhaler, , Disp: , Rfl: has a past medical history of Asthma, Bowel disease, Gastroesophageal reflux, Heart valve disease, Intraoperative complication, Irregular heart beat, Mental health problem, Thyroid nodule, Vertigo, and Vitamin D deficiency. Physical Exam: Patient Vitals for the past 24 hrs: Temp Pulse Resp BP SpO2 04/14/24 1435 36.7 ??C (98.1 ??F) 81 20 134/57 95 % General: no acute distress, pleasant, sitting comfortably Face: not round or red Eyes: no lid lag; normal eye movements Nose: not enlarged Mouth: Mucous membranes moist Neck: no supraclavicular fat pads; trachea midline, no palpable thyroid nodules or cervical lymphadenopathy Respiratory: symmetrical chest expansion, breathing comfortably on room air Musculoskeletal: Moving all 4 extremities normally; normal female musculature Skin: normal temperature/texture Neurological: no tremors; normal gait Psychological: alert/oriented to person, place, time; normal affect; memory intact; normal judgement/insight Radiology Studies: Laboratory Data: Assessment / Plan: 1) thyroid nodule: Increase of 30% in overall volume since 2022 and 39% since initial visit in endocrinology in 2021 although largest dimension has only increased from 1.5 cm to 1.7 cm over that time. Discussed that while growth is not specific, it could represent malignancy. Overall, given size under 2 cm the risk of clinically dangerous thyroid cancer remains very low. Discussed options including proceeding to repeat biopsy vs monitoring closely with plan for FNA if there is continued growth and the patient favors the latter given the serious other active health issues and this is very reasonable. I will request that our staff obtains her recent TSH value from primary care I sent in order for repeat US to be done at [facility] around early December 2024, and then will request telehealth visit to review findings. We can arrange repeat FNA in our clinic if there is continued growth. Time statement: I spent 35 total minutes on this visit today. The time was spent face to face with the patient, on chart review and documentation, ordering labs/studies and coordination of care Orders Placed This Encounter Procedures US Thyroid Soft Tissue TSH Vitamin D, 25-Hydroxy Cornell Harper MD Engineer Byproductenterostomal nurse Endocrinology Section [facility] documented in this encounter Plan of Treatment Scheduled Orders Name Type Priority Associated Diagnoses Orde r Schedule TSH Lab Routine Thyroid nodule Expected: 04/14/2024 (Approximate), Expires: 10/14/2024 Vitamin D, 25-Hydroxy Lab Routine Vitamin D deficiency Expected: 04/14/2024 (Approximate), Expires: 10/14/2024 US Thyroid Soft Tissue Imaging Routine Thyroid nodule Expected: 12/16/2024 (Approximate), Expires: 06/17/2025 documented as of this encounter Visit Diagnoses Diagnosis Thyroid nodule Nontoxic uninodular goiter Vitamin D deficiency Unspecified vitamin D deficiency documented in this encounter Care Teams [employer] Relationship Specialty Start Date End Date Carina Davis PA [address] [place] [id number] PCP - General Family Medicine 03/02/22 documented as of this encounter
--- OUTSIDE RECORDS SUMMARY | 2024-05-29 16:52 | XMS_ITS | Encounter Summary ---
Author Organization [facility] [place] [address] Care Team Providers Care Roll Forger Name Role Phone Carina Davis Primary Care Provider [phone] Encounter Details Date Type Department Care Team (Latest Contact Info) Description 04/14/2024 Travel Social History Tobacco Use Types Packs/Day [...] on filedocumented in this encounter Care Teams Roll Forger Relationship Specialty Start Date End Date Carina Davis PA [address] [place] [phone] PCP - General Family Medicine 03/02/22 documented as of this encounter
--- OUTSIDE RECORDS SUMMARY | 2024-05-29 16:53 | XMS_ITS | Encounter Summary ---
Author Organization [facility] Address [facility] [place] [address] Care Team Providers Care Bellhop Captain Name Role Phone Ulices Baylee Mayorga APRN Primary Care Provider [phone] Reason for Visit * Reason Comments Follow Up Surgery right AMBER REV Encounter Details Date Type Department Care Team (Late st Contact Info) Description 07/18/2018 1:00 PM EST Office [place] [phone] Noemi Hudson MD [facility] [address] [place] [address] Pain of right lower extremity Social History [...] extremity documented in this encounter Care Teams Bellhop Captain Relationship Specialty Start Date End Date Baylee Elena APRN PCP - General Family Medicine 03/25/18 03/01/22 documented as of this encounter
--- OUTSIDE RECORDS SUMMARY | 2024-05-29 16:53 | XMS_ITS | Encounter Summary ---
Author Organization [facility] [place] [address] Care Team Providers Care Jewel Grinder Name Role Phone Carina Davis Primary Care Provider [phone] Encounter Details Date Type Department Care Team [...] on filedocumented in this encounter Care Teams Jewel Grinder Relationship Specialty Start Date End Date Carina Davis PA [address] [place] [id number] PCP - General Family Medicine 03/02/22 documented as of this encounter
--- OUTSIDE RECORDS SUMMARY | 2024-05-29 16:53 | XMS_ITS | Encounter Summary ---
Author Organization [facility] [place] [address] Care Team Providers Care Technical Planner Name Role Phone Baylee Elena APRN Primary Care Provider [phone] Reason for Visit * Auth/Cert Specialty Diagnoses / Procedures Referred By Calin vasquez Referred To Contact Diagnoses Prosthetic hip implant failure, initial encounter Right AMBER mechanical failure Procedures PRO REVISE TOTAL HIP REPLACEMENT @TOTAL HIP REVISION ARTHROPLASTY, COMPLETE (WRVU 30.28) Referral ID Status Reason Start Date Expiration Date Visits Re quested Visits Authorized [id number] 1 1 Encounter Details Date Type Department Care Team (Late st Contact Info) Description 04/01/2018 1:00 PM EDT - 04/01/2018 4:00 PM EDT Surgery [place] [address] Noemi Hudson MD [facility] [place] [address] @TOTAL HIP REVISION ARTHROPLASTY, COMPLETE (WRVU 30.28) [...] encounter Discharge Summaries * Lindsey Rice P, LONGSHORE EQUIPMENT OPERATOR - 04/01/2018 9:42 AM EDT Discharge Summary [facility] Age: 72 y.o. Language: Kazakh Race: White Ethnicity: Not nor Admit date: 04/01/2018 Discharge date and time: 04/02/2018 Attending Physician: Noemi Hudson MD Discharge Physician: Noemi Hudson MD Follow-up Recommendations for Providers: See discharge instructions for additional details. Future Appointments Date Time Provider Department Center 04/30/2018 3:00 PM [facility] DX ROOM 6 [facility]ray [facility] 04/30/2018 4:00 PM Noemi Hudson MD [facility] Inpatient Provider Contact Information: Noemi Hudson MD Orthopedics: [phone] After hours and weekends, call [facility] Information Technology Program Manager, , and have the Orthopedic resident paged. [...] bowel movement. You can also take an wbwk-ocf-bzdleie medication, Miralax if needed to combat constipation. [...] as much as possible. Call your doctor ([phone]) if you develop: 1. Fever greater than 100.5 2. Severe nausea or vomiting 3. Increasing pain that is not controlled by pain medications 4. Increasing redness, swelling, or drainage from incisions 5. Change in sensation FOLLOW-UP APPOINTMENTS: 1. You will have follow-up appointments at [facility] as indicated below in Future Appointment and Orders. 2. You will need to have x-rays prior to your follow-up appointment on 04/30/2018. Please come to Radiology, desk 3T, 1 hour BEFORE that appointment for these x-rays. Future Appointments Date Time Provider Department Center 04/30/2018 3:00 PM [facility] DX ROOM 6 Xray [facility] Rad Clin 04/30/2018 4:00 PM Noemi Hudson MD [facility] [address] [place] [address] If you have questions or concerns: Sunday through Sunday, 8 AM - 5 PM, please call Noemi Tristan MD's office at . If it is after 5 PM, the weekend, or holidays, please call and ask to speak with theOrthopedic resident on-call. General Instructions None Future Appointments and Orders Future Appointments Provider Department Dept Phone 04/30/2018 3:00 PM [facility] DX ROOM 6 XRay at [place] [phone] Please go to Technician Plant And Maintenance Area 3T ([place] Location). 04/30/2018 4:00 PM Noemi Hudson MD Orthopaedics at [place] [phone] Future Orders Complete By Expires Referral to Home Health - at DISCHARGE [[id number] CPT(R)] As directed Process Instructions: Scheduling Instructions: Comments: DOCUMENTATION FOR VNA SERVICES (INCLUDING THOSE PATIENTS WITH MEDICARE COVERAGE REQUIRING HOME VNA SERVICES AND/OR HOSPICE SERVICES) Alyssa Burnham Discharge to own home: [phone] [facility] [phone] Mobile Not on file. Production Leader's Name: herself with neighbors' assist In discussion with the attending physician, it is certified that this patient is under their care and that they, or a nurse practitioner, clinical nurse specialist or physician's medical administrative assistant who is working directly with [...] for services as follows: Home Health Agency: [facility]. PHONE: [phone] FAX: [phone] Home care orders for Revision Total Hip [...] contact info: Primary Care Provider: Baylee ElenaNIKKI [phone] Discharge References/Attachments None documented in this encounter [...] bowel movement. You can also take an rvaw-dhf-vxnghzs medication, Miralax if needed to combat constipation. [...] as much as possible. Call your doctor ([phone]) if you develop: 1. Fever greater than 100.5 2. Severe nausea or vomiting 3. Increasing pain that is not controlled by pain medications 4. Increasing redness, swelling, or drainage from incisions 5. Change in sensation FOLLOW-UP APPOINTMENTS: 1. You will have follow-up appointments at [facility] as indicated below in Future Appointment and Orders. 2. You will need to have x-rays prior to your follow-up appointment on 04/30/2018. Please come to Radiology, desk , 1 hour BEFORE that appointment for these x-rays. Future Appointments Date Time Provider Department Center 04/30/2018 3:00 PM [facility] DX ROOM 6 [facility] [...] Time Provider Department Center 04/30/2018 3:00 PM [facility] DX ROOM 6 [facility] 04/30/2018 4:00 PM Noemi Hudson MD [facility] Associated attestation - Noemi Hudson MD - 04/02/2018 8:26 AM EDT I independently evaluated and saw the patient, and I agree with the above note. Noemi uHdson MD * Cristhian Martel RN - 04/01/2018 6:47 PM EDT Patient arrived to [facility] via [facility] from PACU s/p R hip revision. [...] Time Provider Department Center 04/30/2018 3:00 PM [facility] DX ROOM 6 X[facility] [...] APPROACH performed by Lance Holland MD at [facility] MAIN OR Home Medications: Facility-Administered Medications Prior [...] 04/01/2018 by Noemi Tristan MD for R ABMER revision using posterolateral approach w/ WBAT and [...] 30.28) performed by Noemi Hudson [facility] ??? PRO TOTAL HIP ARTHROPLASTY 02/04/2014 @TOTAL HIP ARTHROPLASTY, ANTERIOR APPROACH performed by Lance Holland MD at [facility] MAIN OR Social History: Patient is a and lives alone in [place], [place] w/ 2 separate platform steps to [...] precs. Understands reason and importanceof using leg plant engineering manager to assist abd during supine>sit Skin and soft Tissue: silver mepilex dressing R posterolateral hip CDI Functional Mobility: Supine><sit: out toward R side of flat bed, back in same side, using leg plant engineering manager to self assist Sit><stand: w/ FWW [...] and home management ARIELLA MCELROY, PT Pager: [phone] PT Evaluation Code Rationale: ?? Diagnosis & [...] functional performance as outlined in this evaluation. [facility] AM-PAC 6 Clicks/stairs Basic Mobility Inpatient [...] with assist, home with home health Pager: [phone] Reed Kilpatrick OT 04/02/2018 Occupational Therapy Rehabilitation [...] Living Environment Comment Pt lives alone in [place], [place]. There are 2 ASHLEY into 1 level where pt plans to sleep in a flat bed, has a raised toilet, walk-in shower w/ a ASHLEY, grab bars, and a shower bench. Functional Level Prior Prior Functional Level Comment Pt independent DIRECTOR PERSONAL. Self-Care Dominant Hand right Vision Assessment/Intervention Additional [...] Mobility Assessment/Treatment Assistive Device (Bed Mobility) leg plant engineering manager Anfwrj-wn-Fyb [place] (Bed Mobility) supervision required;verbal cues required;nonverbal cues required (demo/gesture) Impairments (Bed Mobility) pain;ROM (range of motion) decreased;strength decreased;balance impaired Comment (Bed Mobility) Pt performed bed mobility w/ increased time and verbal cues for technique. flat bed Transfer Assessment/Treatment Bed-Chair [place] (Transfers) supervision required;verbal cues required Chair-Bed [place] (Transfers) supervision required;verbal cues required Tlb-Bnhqs-Mzb Assistive Device (Transfers) rolling walker [place] (Sit-Stand Transfers) supervision required;verbal cues required [place] (Stand-Sit Transfers) supervision required;verbal cues required Pso-Fttag-Fuz Assistive Device (Transfers) rolling walker [place] (Toilet Transfers) supervision required;verbal cues required Assistive Device (Toilet Transfers) bedside commode;rolling walker Maintain Weight Bearing Status (Transfers) able to maintain weight bearing status Impairments (Transfers) pain;ROM (range of motion) decreased;strength decreased;balance impaired Comment (Transfers) Pt performed sit<>stand w/ no overt LOB. Pt requried verbal cues to kick RLE out prior to sit<>stand initially, pt performing indepdently by end of session. Gait Assessment/Treatment [place] (Gait) supervision required Assistive Device (Gait) rolling [...] understanding, taught backtechnique. Upper Body Dressing Assessment/Training [place] Level (UB Dressing) set up required;independent Lower Body Dressing Assessment/Training Assistive Devices (LB Dressing) sock-aid;rail switch operator Position (LB Dressing) sitting;standing [place] Level (LB Dressing) supervision required;verbal cues required Impairments (LB Dressing) pain;ROM (range of motion) decreased;strength decreased;balance impaired Comment (LB Dressing) Pt required increased time and verbal cuse to perform LB dressing w/ AE. Pt issued and educated sock-aid and rail switch operator. Toileting Assessment/Training Assistive Devices (Toileting) bedside commode Position (Toileting) sitting;standing [place] Level (Toileting) conditional independence Impairments (Toileting) pain;ROM [...] Operative Note Patient Name: Alyssa Burnham : [id number] MR#: [id number] Case Date: 04/01/2018 Surgeon: Surgeon(s) and Role: [...] Hudson MD - 04/01/2018 3:42 PM EDT [facility] Operative Note Patient Name: Alyssa Burnham : [id number] MR#: [id number] Case Date: 04/01/2018 Surgeon: Surgeon(s) and Role: * Noemi Hudson MD - Primary * Sarah Mascorro MD - Resident-Surgeon Jad 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 Item Serial No. Waist Presser Lot No. LRB No. Used Action INSER,ALTRX,10D,+[id number] ([id number]) (AUTOREQ) - [id number] IMPLANTS INSER,ALTRX,10D,+[id number] ([id number]) (AUTOREQ) [employer] [facility] [id number] Right 1 Implanted HEAD,FEM,S-ROM,ALUMA,32+0 ([id number]) - [id number] IMPLANTS HEAD,FEM,S- ROM,ALUMA,32+0 ([id number]) [employer] [facility] HEMAN[employer] [id number] Right 1 Implanted documented in this encounter Plan of Treatment Not on file documented as of this encounter Procedures Procedure Name Priority Date/Time Associated Diagnosis Comments IMPLANTABLE DEVICES SCAN 04/03/2018 12:00 AM EDT ECG SCAN 04/03/2018 12:00 AM EDT HEMOGRAM Routine 04/02/2018 3:13 AM EDT DIFFERENTIAL, AUTOMATED Routine 04/02/2018 3:13 AM EDT CBC (WITH DIFF) Routine 04/02/2018 3:13 AM EDT BASIC METABOLIC PANEL Routine 04/02/2018 3:13 AM EDT XR PELVIS [...] (ABNORMAL) Differential, Automated (04/02/2018 3:13 AM EDT) Neutrophil % 90.7 % [facility] Neutrophil Absolute 7.83(H) 1.70 - 6.10 x10(3)/mc L [facility] Lymph % 5.3 % [facility] Lymphocytes Abs 0.5(L) 0.9 - 3.2 x10(3)/mc L [facility] Monocyte % 3.6 % [facility] Monocyte Abs 0.3 0.3 - 0.9 x10(3)/mc L [facility] Eos % 0.0 % [facility] Eosinophils Abs 0.0 0.0 - 0.4 x10(3)/mc L [facility] Basophil % 0.2 % [facility] Baso Absolute 0.0 0.0 - 0.1 x10(3)/mc L [facility] Immature Gran % 0.20 % [facility] Comment: Immature granulocytes(IG's)percentage and absolute count will include metamyelocytes, myelocytes, and promyelocytes. Blood smears from CBCs yielding IG's will be scanned manually for concordance. If this scan disagrees with the automated IG or if promyelocytes are noted, a manual differential will be performed. Immature Gran Absolute 0.02 0.00 - 0.04 x10(3)/mc L [facility] Blood specimen (specimen) 04/02/2018 3:13 AM EDT 04/02/2018 3:46 AM EDT Narrative Resulting Agency Comment Spec In Lab Sarah Mascorro MD HEMATOLOGY ORDERABLE S [facility] [place] [address] * (ABNORMAL) Hemogram (04/02/2018 3:13 AM EDT) White Blood Cell 8.6 4.0 - 9.5 x10(3)/mc L [facility] Red Blood Cell 4.10 4.00 - 5.21 x10(6)/mc L [facility] Hemoglobin 11.9 11.7 - 15.5 gm/dL [facility] Hematocrit 35.6(L) 35.7 - 45.8 % [facility] Mean Cell Volume 86.8 82.6 - 94.4 fL [facility] Mean Cell Hemoglobin 29.0 27.1 - 32.0 pg [facility] Mean Cell Hemoglobin Concentration 33.4 31.7 - 35.0 gm/dL [facility] Platelet 203 145 - 357 x10(3)/mc L [facility] RDW Standard Deviation 42.4 37.0 - 46.0 [facility] RDW coefficient of variation 13.2 11.5 - 14.1 % [facility] Mean Platelet Volume 9.4 7.6 - 12.9 fL [facility] NRBC% auto 0.0 % [facility] NRBC Absolute 0.000 0.000 - 0.000 x10(3)/mc L [facility] Blood specimen (specimen) 04/02/2018 3:13 AM EDT 04/02/2018 3:46 AM EDT Narrative Resulting Agency Comment Spec In Lab Sarah Mascorro MD HEMATOLOGY ORDERABLE S [facility] [place] [address] * (ABNORMAL) Basic Metabolic Panel (non-fasting) (04/02/2018 3:13 AM EDT) Glucose 157 65 - 199 mg/dL [facility] Comment:Diabetes: >=200 mg/d L plus symptoms Blood Urea Nitrogen 15 8 - 18 mg/dL [facility] [...] 107 mmol/L [facility] Carbon Dioxide 21(L) 22 - 31 mmol/L [facility] Anion Gap 15 5 - 15 mmol/L [facility] Calcium 8.8 8.5 - 10.5 mg/dL [facility] Est Glomerular Filtration Rate 65 >=60 mL/min/1. 73 m?? [facility] Comment: The eGFR was calculated using the CKD-EPI equation. As with all creatinine based estimates of kidney function, eGFR values calculated with the CKD-EPI equation are not accurate in patients with acute kidney failure, extremes of body mass or the acutely ill. http://The Combine/DHnkf eGFR 75 >=60 mL/min/1. 73 m?? [facility] Comment: The eGFR was calculated using the CKD-EPI equation. As with all creatinine based estimates of kidney function, eGFR values calculated with the CKD-EPI equation are not accurate in patients with acute kidney failure, extremes of body mass or the acutely ill. http://[employer]/DHMCnkf Blood specimen (specimen) 04/02/2018 3:13 AM EDT 04/02/2018 3:46 AM EDT Narrative Resulting Agency Comment Spec In Lab Noemi Hudson MD CHEMISTRY ORDERABLE S [facility] [place] [address] * XR Pelvis (Generic) (04/01/2018 4:49 PM [...] supine radiograph of the pelvis from 04/01/2018 [id number] hours. COMPARISON: 03/28/2018. FINDINGS: Revision right hip [...] - GENE RAL ORDERABLES Performing Organization Address [facility] [place] [address] * Joint Culture (04/01/2018 3:05 PM EDT) [...] - GENE RAL ORDERABLES Performing Organization Address [facility] [place] [place] [address] * Anaerobic Culture (04/01/2018 2:20 PM EDT) Anaerobic Culture No anaerobic organisms isolated [facility] Joint fluid specimen (specimen) RIGHT HIP REGION STRUCTURE / Unknown 04/01/2018 2:20 PM EDT 04/01/2018 2:48 PM EDT Comment:RIGHT HIP FLUID. Narrative Resulting Agency Comment Spec In Lab Noemi Hudson MD MICROBIOLOGY - GENE RAL ORDERABLES Performing Organization Address [facility] Co de Phone Number [facility] [place] [address] * Joint Culture (04/01/2018 2:20 PM EDT) [...] Hudson MD MICROBIOLOGY - GENE RAL ORDERABLES [facility] [place] [address] * Cell Count Body Fluid Hip, Right (04/01/2018 2:20 PM EDT) Body Fluid Source Hip, Right [facility] Color, Fld Brown [facility] Appearance, Fld Cloudy [facility] WBC Count, Fld 787 /mcl [facility] Comment: Guideline listed below apply [...] Nancy Lam_, Date/Time:04/01/18 16:30_. Corrected from 787 /[facility] [NA] on 04/01/18 04:30 by Miryam Holm. Polymorphonuclear cells BF % 27 % [facility] Comment: Polymorphonuclear cell percent and absolute values may contain Neutrophils, Eosinophils, and Basophils. Body fluid smear will be scanned manually for concordance. Mononuclear cells BF % 73 % [facility] Comment: Mononuclear cell percent and absolute values may contain Lymphocytes and Monocytes. Body fluid smear will be scanned manually for concordance. Polymorphonuclear cells BF ABS 209 /mcl [facility] Comment: Polymorphonuclear cell percent and absolute values may contain Neutrophils, Eosinophils, and Basophils. Body fluid smear will be scanned manually for concordance. Mononuclear cells BF ABS 578 /mcl [facility] Comment: Mononuclear cell percent and absolute values may contain Lymphocytes and Monocytes. Body fluid smear will be scanned manually for concordance. Swab from hip region (specimen) 04/01/2018 2:20 PM EDT 04/01/2018 2:36 PM EDT Narrative Resulting Agency Comment Spec In Lab Noemi Hudson MD BODY FLUIDS AND STO OLS ORDERABLES [facility] [place] [address] documented in this encounter Visit Diagnoses Diagnosis [...] list) 0900 (Not Given - Provider: Hima Reinoso, DALILA - Reason: Patient/family refused) atorvastatin (LIPITOR) tablet [...] RN) 0900 (Given - Provider: Hima Reinoso, RN) celecoxib (CeleBREX) capsule 400 mg (COMPLETED) 400 [...] Alex Meehan RN - Reason: Patient/family refused) 0902 (Given - Provider: Hima Reinoso, RN) senna-docusate (PERICOLACE) 8.6-50 mg per tablet 2 [...] refused) 0901 (Given - Provider: Hima Reinoso, RN) sodium chloride 0.9 % flush 5 mL 5 mL, Intravenous, 2 TIMES DAILY, First dose on Sun04/01/18 at 2100, Until Discontinued, Recovery (Recovery-Hospital Unit), Routine 2029 (Given - Provider: Alex Meehan RN) 09 (Given - Provider: Hima Reinoso, RN) Continuous Medication Order 03/31/2018 04/01/2018 04/02/2018 sodium [...] on Sun04/01/18 at 1843, Until Sun04/02/18 at 1936, Constipation, Administer if needed per patient's routine [...] on Sun04/01/18 at 1843, Until Sun04/02/18 at 1936, Nausea, May repeat times one in 30 minutes if ineffective. If multiple antiemetics are ordered, use ondanstron first, Recovery (Recovery-Hospital Unit) ondansetron (ZOFRAN) tablet 4 mg(Linked Group 2) 4 mg, Oral, EVERY 8 HOURS PRN, Starting on Sun04/01/18 at 1843, Until Sun04/02/18 at 1936, Nausea, Vomiting, If multiple antiemetics are ordered, [...] Unit) documented in this encounter Care Teams Technical Planner Relationship Specialty Start Date End Date Baylee Elena, LONGSHORE EQUIPMENT OPERATOR PCP - General Family Medicine 03/25/18 03/01/22 documented as of this encounter
--- OUTSIDE RECORDS SUMMARY | 2024-05-29 16:53 | XMS_ITS | Encounter Summary ---
Author Organization [facility] [place] [address] Care Team Providers Care Fibrous Wallboard Inspector Name Role Phone Carina Davis Primary [...] on filedocumented in this encounter Care Teams Fibrous Wallboard Inspector Relationship Specialty Start Date End Date Carina Davis PA [address] [place] [id number] PCP - General Family Medicine 03/02/22 documented as of this encounter
--- OUTSIDE RECORDS SUMMARY | 2024-05-29 16:53 | XMS_ITS | Encounter Summary ---
Author Organization [facility] [place] [address] Care Team Providers Care Loop Sewer Name Role Phone Ulices Baylee Mayorga APRN Primary Care Provider [phone] Encounter Details Date Type Department Care Team (Late st Contact Info) Description 03/30/2020 Telephone [place] [id number] Roberto Carlos Anguiano MD [facility] [place] [address] Social History Tobacco Use Types Packs/Day Years [...] improve she may need to see neuro surgical instrument repair specialist. She said she has blurred vision still [...] if insists on DL, can inquire at [facility] to see him there. * Telephone Encounter - Meche Chavez - 03/30/2020 11:32 AM EDT Patient saw Dr. Anguiano in [place] back in August and had f/u originally [...] on filedocumented in this encounter Care Teams Loop Sewer Relationship Specialty Start Date End Date Baylee Elena, PSYCHOLOGY ASSOCIATE PCP - General Family Medicine 03/25/18 03/01/22 documented as of this encounter
--- OUTSIDE RECORDS SUMMARY | 2024-05-29 16:53 | XMS_ITS | Encounter Summary ---
Author Organization [facility] [place] [address] Care Team Providers Care Associate Teacher Name Role Phone Baylee Elena APRN Primary Care Provider [phone] Reason for Referral * Physical Therapy (Routine) - Specialty Diagnoses / Procedures Referred By Calin vasquez Referred To Contact Physical Therapy Diagnoses S/P revision of total hip Noemi Hudson MD [facility] [place] [address] Referral ID Status Reason Start Date Expiration Date V isits Requested Visits Authorized [id number] Evaluate and Treat 05/01/2018 10/28/2018 20 20 Encounter Details Date Type Department Care Team (Late st Contact Info) Description 05/01/2018 Orders [place] [address] Noemi Hudson MD [facility] [place] [address] 04/01/2018 S/P revision of right total hip [...] as of this encounter Plan of Treatment Scheduled Referrals Name Type Priority Associated Diagnoses Orde r Schedule Referral to Physical Therapy Outpatient Referral Routine 04/01/2018 S/P revision of right total hip (Dr. Hudson) Ordered: 05/01/2018 documented as of this encounter Visit Diagnoses Diagnosis 04/01/2018 S/P revision of right total hip (Dr. Hudson) Hip joint replacement by other means documented in this encounter Care Teams Associate Teacher Relationship Specialty Start Date End Date Baylee Elena APRN PCP - General Family Medicine 03/25/18 03/01/22 documented as of this encounter
--- OUTSIDE RECORDS SUMMARY | 2024-05-29 16:53 | XMS_ITS | Encounter Summary ---
Author Organization [facility]ly [facility] [place] [address] Care Team Providers Care Upkeep Mechanic Name Role Phone Baylee Elena APRN Primary Care Provider [phone] Encounter Details Date Type Department Care Team (Late st Contact Info) Description 02/21/2022 Ancillary Procedure Radiology Library at [facility], [place] [id number] Baylee Elena APRN [address], [place] [id number] Social History Tobacco Use Types Packs/Day Years [...] Ultrasound Study (02/21/2022 12:00 AM EDT) Narrative [facility] - 02/22/2022 7:39 PM EDT This exam is auto-finalizing. It's purpose is for storage only. Baylee Elena APRN IMG FILM LIBRARY ORD ERABLES REBECCA [place], [place] documented in this encounter Visit Diagnoses Not on filedocumented in this encounter Care Teams Upkeep Mechanic Relationship Specialty Start Date End Date Baylee Elena, NIKKI PCP - General Family Medicine 03/25/18 03/01/22 documented as of this encounter
--- OUTSIDE RECORDS SUMMARY | 2024-05-29 16:53 | XMS_ITS | Encounter Summary ---
[place] [address] Care Team Providers Care Floor Representative Name Role Phone Carina Davis Primary Care Provider [phone] Reason for Visit * Reason Onset Date Comments Medication Refill 01/01/2023 Encounter Details Date Type Department Care Team (Late st Contact Info) Description 01/01/2023 [place] [phone] Leanne Larsen, RN Social History Tobacco Use Types Packs/Day [...] on filedocumented in this encounter Care Teams Floor Representative Relationship Specialty Start Date End Date Carina Davis PA [address] [place] [address] PCP - General Family Medicine 03/02/22 documented as of this encounter
--- OUTSIDE RECORDS SUMMARY | 2024-05-29 16:53 | XMS_ITS | Encounter Summary ---
Author Organization [facility] [place] [address] Care Team Providers Care Linoleum Tile Floor Layer Name Role Phone Carina Davis Primary Care Provider Encounter Details Date Type Department Care Team (Late st Contact Info) Description 01/16/2024 1:45 PM EDT Ancillary Procedure Radiology Library [place] [phone] Carina Davis PA [address] [place] [id number] Social History Tobacco Use Types Packs/Day Years [...] Ultrasound Study (01/16/2024 1:44 PM EDT) Narrative [facility] - 01/16/2024 1:44 PM EDT This exam is auto-finalizing. It's purpose is for storage only. Carina AMES [facility] FILM LIBRARY ORD ERABLES REBECCA [place], [place] documented in this encounter Visit Diagnoses Not on filedocumented in this encounter Care Teams Linoleum Tile Floor Layer Relationship Specialty Start Date End Date Carina Davis PA [address] [place] [address] PCP - General Family Medicine 03/02/22 documented as of this encounter
--- OUTSIDE RECORDS SUMMARY | 2024-05-29 16:53 | XMS_ITS | Encounter Summary ---
Author Organization [facility] [address] Care Team Providers Care Adult Education Manager Name Role Phone Baylee Elena APRN Primary Care Provider Reason for Referral * Physical Therapy (Routine) - Specialty Diagnoses / Procedures Referred By Calin vasquez Referred To Contact Physical Therapy Diagnoses Primary osteoarthritis of both knees Noemi Hudson MD [facility] [place] [address] Referral ID Status Reason Start Date Expiration Date V isits Requested Visits Authorized [id number] Evaluate and Treat 02/26/2019 08/25/2019 12 12 Reason for Visit * Reason Comments Follow Up Surgery right AMBER revision; left hip pain Encounter Details Date Type Department Care Team (Latest Contact Info) Description 02/26/2019 10:00 AM EDT Office [place] [address] Noemi Hudson MD [facility] [place] [address] History of bilateral hip replacements; Primary osteoarthritis [...] in this encounter Plan of Treatment Scheduled Referrals Name Type Priority Associated Diagnoses Orde r Schedule Referral to Physical Therapy Outpatient Referral Routine Primary osteoarthritis of both knees Ordered: 02/26/2019 documented as of this encounter Results * XR Knee Standing Alignment AP Lat [place] Bilat (02/26/2019 11:43 AM EDT) Anatomical Region [...] BLESSING Coronado [facility] ([phone]), at 02/26/2019 4:12 PM Narrative 02/26/2019 4:12 [...] contact the number below. Electronically signed by: BLESSING Coronado [facility]([phone]), at 02/26/2019 4:12 PM Noemi Hudson MD IMG DX ORDERABLES [...] mg documented in this encounter Care Teams Adult Education Manager Relationship Specialty Start Date End Date Baylee Elena, NIKKI PCP - General Family Medicine 03/25/18 03/01/22 documented as of this encounter
--- OUTSIDE RECORDS SUMMARY | 2024-05-29 16:53 | XMS_ITS | Encounter Summary ---
Author Organization [facility] [place] [address] Care Team Providers Care Bit Tapper Name Role Phone Carina Davis Primary Care Provider [phone] Encounter Details Date Type Department Care Team (Late st Contact Info) Description 01/10/2023 9:30 AM EDT Office Visit [place] [address] Vin Craig MD [facility] [place] [address] Cesar Pineda DO [facility] [place] [address] Thyroid nodule; Vitamin D deficiency Social History [...] Office Visit from 01/10/2023 in Endocrinology at [facility] Office Visit from 07/18/2018 in Orthopaedics at [facility] Weight 80.8 kg (178 lb 3.2 oz) [...] Studies: ENDOCRINOLOGY THYROID ULTRASOUND REPORT Patient:Alyssa Burnham, [id number] Date of exam: 01/11/2023 Indication: thyroid nodule Comparison: Clinic US 11/20/22 Performed by: Cesar Pineda DO, Vin Craig MD Real time images of the thyroid gland were obtained using a [employer] US machine. All measurements are given [...] and coordination of care Vin Craig MD General Operations Agentshot blast equipment operator Endocrinology Section [facility] documented in this encounter Miscellaneous Notes [...] Vitamin D, 25-Hydroxy (01/10/2023 10:54 AM EDT) Vitamin D Total 25 OH 34 21 - 100 ng/mL [facility] Vit D Interp Sufficient [facility] Blood 01/10/2023 10:5 4 AM EDT 01/10/2023 11:12 AM EDT Narrative Resulting Agency Comment Spec In Lab Vin Craig MD CHEMISTRY ORDERABLE S [facility] [place] [address] * TSH [place] (01/10/2023 10:54 AM EDT) Thyroid Stimulating Hormone 1.83 0.27 - 4.20 mcIU/mL [facility] Comment: Reference Interval (mcIU/mL): Females: ??First Trimester: 0.23-3.88 ??Second Trimester: 0.22-3.90 ??Third Trimester: 0.44-4.66 Blood 01/10/2023 10:5 4 AM EDT 01/10/2023 11:12 AM EDT Narrative Resulting Agency Comment Spec In Lab Vin Craig MD CHEMISTRY ORDERABLE S [facility] [place] [address] * Cytopathology Non-Gynecological (01/10/2023 9:27 AM EDT) AP Specimen 01/10/2023 9:27 AM EDT 01/10/2023 9:27 AM EDT Narrative [facility] - 01/10/2023 9:27 AM EDT Specimen requisition ordered. ??Separate Pathology report to follow Vin Craig MD PATHOLOGY/CYTOLOGY ORDERABLES Performing Organization Address City/State/[facility] Co de Phone Number [facility] [place] [address] documented in this encounter Visit Diagnoses Diagnosis Thyroid nodule Nontoxic uninodular goiter Vitamin D deficiency Unspecified vitamin D deficiency documented in this encounter Care Teams Bit Tapper Relationship Specialty Start Date End Date Carina Davis PA [address] [place] [address] PCP - General Family Medicine 03/02/22 documented as of this encounter
--- OUTSIDE RECORDS SUMMARY | 2024-05-29 16:53 | XMS_ITS | Encounter Summary ---
[place] [address] Care Team Providers Care Inductor Tester Name Role Phone Carina Davis Primary Care Provider [phone] Encounter Details Date Type Department Care Team (Late st Contact Info) Description 11/27/2022 Telephone [place] [phone] Leanne Larsen RN Social History Tobacco Use [...] on filedocumented in this encounter Care Teams Inductor Tester Relationship Specialty Start Date End Date Carina Davis PA [address] [place] [address] PCP - General Family Medicine 03/02/22 documented as of this encounter
--- OUTSIDE RECORDS SUMMARY | 2024-05-29 16:53 | XMS_ITS | Encounter Summary ---
Author Organization [facility] Address [facility] [place] [address] Care Team Providers Care Movement Assembly Final Inspector Name Role Phone Ulices Baylee Mayorga APRN Primary Care Provider [phone] Encounter Details Date Type Department Care Team (Latest Contact Info) Description 02/26/2019 8:27 AM EDT - 02/26/2019 11:14 AM EDT Hospital Encounter XRay at [address] [place] [address] Noemi Hudson MD [facility] [place] [address] History of total hip arthroplasty, right; 02/04/2014 [...] of this encounter Plan of Treatment Scheduled Orders [...] below. ? Electronically signed by: BLESSING Coronado [facility] ([phone]), at 02/26/2019 1:30 PM Narrative 02/26/2019 1:30 [...] number below. Electronically signed by: BLESSING Coronado [facility]([phone]), at 02/26/2019 1:30 PM Noemi Hudson MD IMG DX ORDERABLES documented in this encounter Visit Diagnoses Diagnosis History of total hip arthroplasty, right 02/04/2014 Dr. Holland Left Anterior AMBER Primary localized osteoarthrosis, pelvic region and thigh 04/01/2018 S/P revision of right total hip (Dr. Hudson) Hip joint replacement by other means documented in this encounter Care Teams Movement Assembly Final Inspector Relationship Specialty Start Date End Date Baylee Elena APRN PCP - General Family Medicine 03/25/18 03/01/22 documented as of this encounter
--- OUTSIDE RECORDS SUMMARY | 2024-05-29 16:53 | XMS_ITS | Encounter Summary ---
Author Organization [facility] Address [facility] [place] [address] Care Team Providers Care Economic Analysis Director Name Role Phone Ulices Baylee Mayorga APRN Primary Care Provider [phone] Reason for Visit * Auth/Cert Specialty Diagnoses / Procedures Referred By Calin vasquez Referred To Contact Diagnoses Prosthetic hip implant failure, initial encounter Right AMBER mechanical failure Procedures PRO REVISE TOTAL HIP REPLACEMENT @TOTAL HIP REVISION ARTHROPLASTY, COMPLETE (WRVU 30.28) Referral ID Status Reason Start Date Expiration Date Visits Re quested Visits Authorized [id number] 1 1 Encounter Details Date Type Department Care Team (Latest Contact Info) Description 04/01/2018 10:56 AM EDT - 04/02/2018 5:37 PM EDT Hospital Encounter [address] [place] [address] Noemi Hudson MD [facility] [place] [address] Prosthetic hip implant failure, initial encounter; Pain [...] encounter Discharge Summaries * Lindsey Rice P, PLANNING ASSOCIATE - 04/01/2018 9:42 AM EDT Discharge Summary Patient Name: Alyssa Burnham Patient Age: 72 y.o. Language: Portuguese Race: White Ethnicity: Not nor Admit date: 04/01/2018 Discharge date and time: 04/02/2018 Attending Physician: Noemi Hudson MD Discharge Physician: Noemi Hudson MD Follow-up Recommendations for Providers: See discharge instructions for additional details. Future Appointments Date Time Provider Department Center 04/30/2018 3:00 PM [facility] 04/30/2018 4:00 PM Noemi Hudson MD [facility] Inpatient Provider Contact Information: Noemi Hudson MD Orthopedics: [phone] After hours and weekends, call [facility] Assessment Specialist, , and have the Orthopedic resident paged. [...] bowel movement. You can also take an iqdj-ohz-egwuaje medication, Miralax if needed to combat constipation. [...] as much as possible. Call your doctor ([phone]) if you develop: 1. Fever greater than 100.5 2. Severe nausea or vomiting 3. Increasing pain that is not controlled by pain medications 4. Increasing redness, swelling, or drainage from incisions 5. Change in sensation FOLLOW-UP APPOINTMENTS: 1. You will have follow-up appointments at [facility] as indicated below in Future Appointment and Orders. 2. You will need to have x-rays prior to your follow-up appointment on 04/30/2018. Please come to Radiology, desk 3T, 1 hour BEFORE that appointment for these x-rays. Future Appointments Date Time Provider Department Center 04/30/2018 3:00 PM [facility] DX ROOM 6 [facility] 04/30/2018 4:00 PM Noemi Hudson MD [facility] [address] [place] [address] If you have questions or concerns: Sunday through Sunday, 8 AM - 5 PM, please call Noemi Tristan MD's office at . If it is after 5 PM, the weekend, or holidays, please call and ask to speak with theOrthopedic resident on-call. General Instructions None Future Appointments and Orders Future Appointments Provider Department Dept Phone 04/30/2018 3:00 PM [facility] DX ROOM 6 [facility] at [place] [phone] Please go to Powerhouse Engineer Area 3T ([place] Location). 04/30/2018 4:00 PM Noemi Hudson MD Orthopaedics at [place] [phone] Future Orders Complete By Expires Referral to Home Health - at DISCHARGE [[id number] CPT(R)] As directed Process Instructions: Scheduling Instructions: Comments: DOCUMENTATION FOR VNA SERVICES (INCLUDING THOSE PATIENTS WITH MEDICARE COVERAGE REQUIRING HOME VNA SERVICES AND/OR HOSPICE SERVICES) Alyssa Burnham Discharge to own home: [address] [facility] [address] Mobile Not on file. Wire Rope Sling Maker's Name: herself with neighbors' assist In discussion with the attending physician, it is certified that this patient is under their care and that they, or a nurse practitioner, clinical nurse specialist or physician's trade sales assistant who is working directly with [...] for services as follows: Home Health Agency: [facility] [employer]. PHONE: [phone] FAX: [phone] Home care orders for Revision Total Hip [...] PT services only then please refer for Detention(SN) eval if indicated on admission visit Hip [...] contact info: Primary Care Provider: Baylee Elena, PLANNING ASSOCIATE [phone] Discharge References/Attachments None documented in this encounter Discharge Instructions * Patient Instructions* Lindsey Rice, PLANNING ASSOCIATE - 04/01/2018 9:46 AM EDT Activity: 1. [...] bowel movement. You can also take an fsnk-nfi-wwwrusv medication, Miralax if needed to combat constipation. [...] as much as possible. Call your doctor ([phone]) if you develop: 1. Fever greater than 100.5 2. Severe nausea or vomiting 3. Increasing pain that is not controlled by pain medications 4. Increasing redness, swelling, or drainage from incisions 5. Change in sensation FOLLOW-UP APPOINTMENTS: 1. You will have follow-up appointments at [facility] as indicated below in Future Appointment and Orders. 2. You will need to have x-rays prior to your follow-up appointment on 04/30/2018. Please come to Radiology, desk 3T, 1 hour BEFORE that appointment for these x-rays. Future Appointments Date Time Provider Department Center 04/30/2018 3:00 PM [facility] DX ROOM 6 [facility] 04/30/2018 4:00 PM Noemi Hudson MD [facility] [place] [facility] If you have questions or concerns: [...] Time Provider Department Center 04/30/2018 3:00 PM [facility] DX ROOM 6 [facility] 04/30/2018 4:00 PM Noemi Hudson MD [facility] [place] [facility] Associated attestation - Noemi Hudson MD - 04/02/2018 8:26 AM EDT I independently evaluated and saw the patient, and I agree with the above note. Noemi Hudson MD * Cristhian Martel RN - 04/01/2018 6:47 PM EDT Patient arrived [facility] via [facility] from PACU s/p R hip revision. [...] Time Provider Department Center 04/30/2018 3:00 PM [facility] DX ROOM 6 Xray [facility] [...] APPROACH performed by Lance Holland MD at [facility] MAIN OR Home Medications: Facility-Administered [...] 30.28) [facility] ??? PRO TOTAL HIP ARTHROPLASTY 02/04/2014 @TOTAL HIP ARTHROPLASTY, ANTERIOR APPROACH performed by Lance Holland MD at [facility] MAIN OR Social History: Patient is a and lives alone in [place], [place] w/ 2 separate platform steps to [...] precs. Understands reason and importanceof using leg print press operator to assist abd during supine>sit Skin and soft Tissue: silver mepilex dressing R posterolateral hip CDI Functional Mobility: Supine><sit: out toward R side of flat bed, back in same side, using leg print press operator to self assist Sit><stand: w/ FWW w/ [...] and home management ARIELLA MCELROY, PT Pager: [phone] PT Evaluation Code Rationale: ?? Diagnosis & [...] functional performance as outlined in this evaluation. [facility] 6 Clicks/stairs Basic Mobility Inpatient Short Form [...] with assist, home with home health Pager: [phone] Reed Kilpatrick OT 04/02/2018 Occupational Therapy Rehabilitation [...] Living Environment Comment Pt lives alone in [place], [place]. There are 2 ASHLEY into 1 level where pt plans to sleep in a flat bed, has a raised toilet, walk-in shower w/ a ASHLEY, grab bars, and a shower bench. 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 Self-Care Dominant Hand right Vision Assessment/Intervention Additional [...] Mobility Assessment/Treatment Assistive Device (Bed Mobility) leg print press operator Iknyuy-gp-Auq Manley (Bed Mobility) supervision required;verbal cues required;nonverbal cues required (demo/gesture) Impairments (Bed Mobility) pain;ROM (range of motion) decreased;strength decreased;balance impaired Comment (Bed Mobility) Pt performed bed mobility w/ increased time and verbal cues for technique. flat bed Transfer Assessment/Treatment Bed-Chair Manley (Transfers) supervision required;verbal cues required Chair-Bed Manley (Transfers) supervision required;verbal cues required Sfn-Kbtft-Uvr Assistive Device (Transfers) rolling walker Manley (Sit-Stand Transfers) supervision required;verbal cues required Manley (Stand-Sit Transfers) supervision required;verbal cues required Nwu-Rszhl-Hnu Assistive Device (Transfers) rolling walker Manley (Toilet Transfers) supervision required;verbal cues required Assistive Device (Toilet Transfers) bedside commode;rolling walker Maintain Weight Bearing Status (Transfers) able to maintain weight bearing status Impairments (Transfers) pain;ROM (range of motion) decreased;strength decreased;balance impaired Comment (Transfers) Pt performed sit<>stand w/ no overt LOB. Pt requried verbal cues to kick RLE out prior to sit<>stand initially, pt performing indepdently by end of session. Gait Assessment/Treatment Manley (Gait) supervision required Assistive Device (Gait) rolling [...] understanding, taught backtechnique. Upper Body Dressing Assessment/Training Manley Level (UB Dressing) set up required;independent Lower Body Dressing Assessment/Training Assistive Devices (LB Dressing) sock-aid;senior microstrategy developer Position (LB Dressing) sitting;standing Manley Level (LB Dressing) supervision required;verbal cues required Impairments (LB Dressing) pain;ROM (range of motion) decreased;strength decreased;balance impaired Comment (LB Dressing) Pt required increased time and verbal cuse to perform LB dressing w/ AE. Pt issued and educated sock-aid and senior microstrategy developer. Toileting Assessment/Training Assistive Devices (Toileting) bedside commode Position (Toileting) sitting;standing Manley Level (Toileting) conditional independence Impairments (Toileting) pain;ROM [...] Operative Note Patient Name: Alyssa Burnham : [id number] MR#: [id number] Case Date: 04/01/2018 Surgeon: Surgeon(s) and Role: [...] Hudson MD - 04/01/2018 3:42 PM EDT [facility] Operative Note Patient Name: Alyssa Burnham : [id number] MR#: [id number] Case Date: 04/01/2018 Surgeon: Surgeon(s) and Role: * Noemi Hudson MD - Primary * Sarah Mascorro MD - Resident-Surgeon Jad Preoperative Diagnosis: Mechanical failure of right hip replacement Postoperative Diagnosis: Same Procedure Performed: right Total Hip Arthroplasty Revision (CPT code 93254) Anesthesia: Spinal/Epidural IVF: 1100ml of crystaloid Estimated [...] Implant Name Type Inv. Item Serial No. Engineering Specialist Technician Lot No. LRB No. Used Action INSER,ALTRX,10D,+[id number] ([id number]) (AUTOREQ) - [id number] IMPLANTS INSER,ALTRX,10D,+[id number] ([id number]) (AUTOREQ) [employer]W HEMANTH [id number] Right 1 Implanted HEAD,FEM,S-ROM,ALUMA,32+0 ([id number]) - [id number] IMPLANTS HEAD,FEM,S- ROM,ALUMA,32+0 ([id number]) [employer] [facility] HEMANTH [id number] Right 1 Implanted documented in this encounter [...] 3:13 AM EDT) Neutrophil % 90.7 % [facility] Neutrophil Absolute 7.83(H) 1.70 - 6.10 x10(3)/mc L [facility] Lymph % 5.3 % [facility] Lymphocytes Abs 0.5(L) 0.9 - 3.2 x10(3)/mc L [facility] Monocyte % 3.6 % [facility] Monocyte Abs 0.3 0.3 - 0.9 x10(3)/mc L [facility] Eos % 0.0 % [facility] Eosinophils Abs 0.0 0.0 - 0.4 x10(3)/mc L [facility] Basophil % 0.2 % [facility] Baso Absolute 0.0 0.0 - 0.1 x10(3)/mc L [facility] Immature Gran % 0.20 % [facility] Comment: Immature granulocytes(IG's)percentage and absolute count will include metamyelocytes, myelocytes, and promyelocytes. Blood smears from CBCs yielding IG's will be scanned manually for concordance. If this scan disagrees with the automated IG or if promyelocytes are noted, a manual differential will be performed. Immature Gran Absolute 0.02 0.00 - 0.04 x10(3)/ L [facility] Blood specimen (specimen) 04/02/2018 3:13 AM EDT 04/02/2018 3:46 AM EDT Narrative Resulting Agency Comment Spec In Lab Sarah Mascorro MD HEMATOLOGY ORDERABLE S [facility] [place] [address] * (ABNORMAL) Hemogram (04/02/2018 3:13 AM EDT) White Blood Cell 8.6 4.0 - 9.5 x10(3)/[facility] Red Blood Cell 4.10 4.00 - 5.21 x10(6)/ L [facility] Hemoglobin 11.9 11.7 - 15.5 gm/dL [facility] Hematocrit 35.6(L) 35.7 - 45.8 % [facility] Mean Cell Volume 86.8 82.6 - 94.4 fL [facility] Mean Cell Hemoglobin 29.0 27.1 - 32.0 pg [facility] Mean Cell Hemoglobin Concentration 33.4 31.7 - 35.0 gm/dL [facility] Platelet 203 145 - 357 x10(3)/mc L [facility] RDW Standard Deviation 42.4 37.0 - 46.0 fL [facility] RDW coefficient of variation 13.2 11.5 - 14.1 % [facility] Mean Platelet Volume 9.4 7.6 - 12.9 fL [facility] NRBC% auto 0.0 % [facility] NRBC Absolute 0.000 0.000 - 0.000 x10(3)/mc L [facility] Blood specimen (specimen) 04/02/2018 3:13 AM EDT 04/02/2018 3:46 AM EDT Narrative Resulting Agency Comment Spec In Lab Sarah Mascorro MD HEMATOLOGY ORDERABLE S [facility] [place] [address] * (ABNORMAL) Basic Metabolic Panel (non-fasting) (04/02/2018 3:13 AM EDT) Glucose 157 65 - 199 mg/dL [facility] Comment:Diabetes: >=200 mg/d L plus symptoms Blood Urea Nitrogen 15 8 - 18 mg/dL [facility] Creatinine 0.90 0.70 - 1.20 mg/dL [facility] Sodium 141 135 - 145 mmol/L [facility] Potassium 4.2 3.5 - 5.0 mmol/L [facility] Comment: Please note: ??Patients with WBC >100,000 may have falsely elevated Potassium levels. ??For accurate Potassium quantification in these patients send serum separator tube (gold top) for subsequent determinations. ??Contact the Clinical Chemistry Laboratory if there are any questions. Chloride 105 98 - 107 mmol/L [facility] Carbon Dioxide 21(L) 22 - 31 mmol/L [facility] Anion Gap 15 5 - 15 mmol/L [facility] Calcium 8.8 8.5 - 10.5 mg/dL [facility] Est Glomerular Filtration Rate 65 >=60 mL/min/1. 73 m?? [facility] Comment: The eGFR was calculated using the CKD-EPI equation. As with all creatinine based estimates of kidney function, eGFR values calculated with the CKD-EPI equation are not accurate in patients with acute kidney failure, extremes of body mass or the acutely ill. [email or web address] eGFR 75 >=60 mL/min/1. 73 m?? [facility] Comment: The eGFR was calculated using the CKD-EPI equation. As with all creatinine based estimates of kidney function, eGFR values calculated with the CKD-EPI equation are not accurate in patients with acute kidney failure, extremes of body mass or the acutely ill. [email or web address] Blood specimen (specimen) 04/02/2018 3:13 AM EDT 04/02/2018 3:46 AM EDT Narrative Resulting Agency Comment Spec In Lab Noemi Hudson MD CHEMISTRY ORDERABLE S [facility] [place] [id number] * XR Pelvis (Generic) (04/01/2018 4:49 PM [...] supine radiograph of the pelvis from 04/01/2018 [id number] hours. COMPARISON: 03/28/2018. FINDINGS: Revision right hip arthroplasty hardware appears well-seated.No immediate postoperative complication such as periprosthetic fractureseen. Unchanged appearance of the bony pelvic ring and the post arthroplasty appearance of the left hip. IMPRESSION No immediate right hip revision arthroplasty complication identified. Noemi Hudson MD IMG DX ORDERABLES * Anaerobic Culture (04/01/2018 3:05 PM EDT) Anaerobic Culture No anaerobic organisms isolated [facility] Joint specimen (specimen) RIGHT HIP REGION STRUCTURE / Unknown 04/01/2018 3:05 PM EDT 04/01/2018 4:07 PM EDT Comment:RIGHT HIP CAPSULE. Narrative Resulting Agency Comment Spec In Lab Noemi Hudson MD MICROBIOLOGY - GENE RAL ORDERABLES Performing Organization Address [facility] Co de Phone Number [facility] [address] * Joint Culture (04/01/2018 3:05 PM EDT) Joint Culture No growth [facility] Gram Stain No Neutrophils seen. No microorganisms seen. [facility] Joint specimen (specimen) RIGHT HIP REGION STRUCTURE / Unknown 04/01/2018 3:05 PM EDT 04/01/2018 4:07 PM EDT Comment:RIGHT HIP CAPSULE. Narrative Resulting Agency Comment Spec In Lab Noemi Hudson MD MICROBIOLOGY - GENE RAL ORDERABLES Performing Organization Address [facility]/ZIP Co de Phone Number [facility] [place] [address] * Anaerobic Culture (04/01/2018 2:20 PM EDT) Anaerobic Culture No anaerobic organisms isolated [facility] Joint fluid specimen (specimen) RIGHT HIP REGION STRUCTURE / Unknown 04/01/2018 2:20 PM EDT 04/01/2018 2:48 PM EDT Comment:RIGHT HIP FLUID. Narrative Resulting Agency Comment Spec In Lab Noemi Hudson MD MICROBIOLOGY - GENE RAL ORDERABLES Performing Organization Address City/[facility]/ZIP Co de Phone Number [facility] [place] [address] * Joint Culture (04/01/2018 2:20 PM EDT) Joint Culture No growth at 14 days. [facility] Gram Stain Cytocentrifuge Gram Stain performed Neutrophils seen No microorganisms seen. [facility] Joint fluid specimen (specimen) RIGHT HIP REGION STRUCTURE / Unknown 04/01/2018 2:20 PM EDT 04/01/2018 2:48 PM EDT Comment:RIGHT HIP FLUID. Narrative Resulting Agency Comment Spec In Lab Noemi Hudson MD MICROBIOLOGY - GENE RAL ORDERABLES Performing Organization Address [facility] Co de Phone Number [facility] [place] [address] * Cell Count Body Fluid Hip, Right (04/01/2018 2:20 PM EDT) Body Fluid Source Hip, Right [facility] Color, Fld Brown [facility] Appearance, Fld Cloudy [facility] WBC Count, Fld 787 /mcl [facility] Comment: [...] Nancy Lam_, Date/Time:04/01/18 16:30_. Corrected from 787 /[facility] [NA] on 04/01/18 04:30 by Miryam Holm. Polymorphonuclear cells BF % 27 % [facility] Comment: Polymorphonuclear cell percent and absolute values may contain Neutrophils, Eosinophils, and Basophils. Body fluid smear will be scanned manually for concordance. Mononuclear cells BF % 73 % [facility] Comment: Mononuclear cell percent and absolute values may contain Lymphocytes and Monocytes. Body fluid smear will be scanned manually for concordance. Polymorphonuclear cells BF ABS 209 /[facility] Comment: Polymorphonuclear cell percent and absolute values may contain Neutrophils, Eosinophils, and Basophils. Body fluid smear will be scanned manually for concordance. Mononuclear cells BF ABS 578 /[facility] Comment: Mononuclear cell percent and absolute values may contain Lymphocytes and Monocytes. Body fluid smear will be scanned manually for concordance. Swab from hip region (specimen) 04/01/2018 2:20 PM EDT 04/01/2018 2:36 PM EDT Narrative Resulting Agency Comment Spec In Lab Noemi Hudson MD BODY FLUIDS AND STO OLS ORDERABLES [facility] [place] [address] documented in this encounter Visit Diagnoses Diagnosis [...] Routine 2023 (Given - Provider: Alex Meehan RN)0 (Not Given - Provider: Alex Meehan RN [...] Unit), Indication for (Active or Suspected): Prophylaxis 180 (New Bag - Provider: Nancy Persaud RN)1835 [...] Routine 2099 (Not Given - Provider: Alex Meeahn RN - Reason: Patient/family refused) 09 (Given - Provider: Hima Reinoso, DALILA) senna-docusate (PERICOLACE) 8.6-50 mg per tablet 2 tablet 2 tablet, Oral, 2 TIMES DAILY, First dose on Sun04/01/18 at 2100, Until Discontinued, Routine 2099 (Not Given - Provider: Alex Meehan RN - Reason: Patient/family refused) 09 (Given - Provider: Hima Reinoso, DALILA) sertraline [...] Sun04/01/18 at 1843, Until Sun04/02/18 at 1937, for discomfort with PIV insertion, Recovery (Recovery-Hospital [...] Unit) documented in this encounter Care Teams Economic Analysis Director Relationship Specialty Start Date End Date Baylee Elena APRN PCP - General Family Medicine 03/25/18 03/01/22 documented as of this encounter
--- OUTSIDE RECORDS SUMMARY | 2024-05-29 16:53 | XMS_ITS | Encounter Summary ---
Author Organization [facility] [place] [address] Care Team Providers Care Dowel Sander Operator Name Role Phone Carina Davis Primary Care Provider [phone] Encounter Details Date Type Department Care Team [...] on filedocumented in this encounter Care Teams Dowel Sander Operator Relationship Specialty Start Date End Date Carina Davis PA [address] [place] [id number] PCP - General Family Medicine 03/02/22 documented as of this encounter
--- OUTSIDE RECORDS SUMMARY | 2024-05-29 16:53 | XMS_ITS | Encounter Summary ---
Author Organization [facility] [place] [address] Care Team Providers Care Grounds Person Name Role Phone Carina Davis Primary Care Provider [phone] Encounter Details Date Type Department Care Team [...] on filedocumented in this encounter Care Teams Grounds Person Relationship Specialty Start Date End Date Carina Davis PA [address] [place] [id number] PCP - General Family Medicine 03/02/22 documented as of this encounter
--- OUTSIDE RECORDS SUMMARY | 2024-05-29 16:53 | XMS_ITS | Encounter Summary ---
[place] [address] Care Team Providers Care Welt Pocket Machine Operator Name Role Phone Carina Davis Primary Care Provider Reason for Referral * Consultation (Routine) - Closed Specialty Diagnoses / Procedures Referred By Contfermín t Referred To Contact Endocrinology Diagnoses Thyroid nodule Carina Davis PA [address] [place] [address] [facility] Endocrinology [address] [place] [phone] Referral ID Status Reason Start Date Expiration Date V isits Requested Visits Authorized [id number] Closed Consult, Test & Treat PCP Updated and/or Approved 03/02/2022 03/02/2023 6 6 Encounter Details Date Type Department Care Team (Late st Contact Info) Description 03/02/2022 Transcribe Orders eDH Incoming Referrals [phone] Carina Davis PA [address] [place] [address] Thyroid nodule Social History Tobacco [...] goiter documented in this encounter Care Teams Welt Pocket Machine Operator Relationship Specialty Start Date End Date Carina Davis PA [address] [place] [id number] PCP - General Family Medicine 03/02/22 documented as of this encounter
--- OUTSIDE RECORDS SUMMARY | 2024-05-29 16:53 | XMS_ITS | Encounter Summary ---
Author Organization [facility] Address [facility] [place] [address] Care Team Providers Care High Energy Forming Equipment Operator Name Role Phone Samnicholas Baylee Nicholas JORDAN Primary Care Provider [phone] Encounter Details Date Type Department Care Team (Late st Contact Info) Description 07/05/2018 4:05 PM EST Ancillary Procedure Radiology Library at [facility] [place] [address] Noemi Hudson MD [facility] [place] [address] Social History Tobacco Use Types Packs/Day Years [...] DX Chest (07/05/2018 4:04 PM EST) Narrative [facility] - 07/05/2018 4:04 PM EST This exam is for storage only and is auto-finalizing. Noemi Hudson MD IMG FILM LIBRARY OR DERABLES [place], [place] documented in this encounter Visit Diagnoses Not on filedocumented in this encounter Care Teams High Energy Forming Equipment Operator Relationship Specialty Start Date End Date Baylee Elena APRN PCP - General Family Medicine 03/25/18 03/01/22 documented as of this encounter
--- OUTSIDE RECORDS SUMMARY | 2024-05-29 16:53 | XMS_ITS | Encounter Summary ---
Author Organization [facility] [place] [address] Care Team Providers Care Harnessmaker Apprentice Name Role Phone Carina Davis Primary Care Provider [phone] Encounter Details Date Type Department Care Team [...] on filedocumented in this encounter Care Teams Harnessmaker Apprentice Relationship Specialty Start Date End Date Carina Davis PA [address] [place] [address] PCP - General Family Medicine 03/02/22 documented as of this encounter
--- OUTSIDE RECORDS SUMMARY | 2024-05-29 16:53 | XMS_ITS | Encounter Summary ---
Author Organization [facility] [place] [address] Care Team Providers Care Sponsorship Coordinator Name Role Phone Carina Davis Primary Care Provider [phone] Encounter Details Date Type Department Care Team [...] on filedocumented in this encounter Care Teams Sponsorship Coordinator Relationship Specialty Start Date End Date Carina Davis PA [address] [place] [phone] PCP - General Family Medicine 03/02/22 documented as of this encounter
--- OUTSIDE RECORDS SUMMARY | 2024-05-29 16:53 | XMS_ITS | Encounter Summary ---
Author Organization [facility] Address [facility] [place] [address] Care Team Providers Care Shrub Grower Name Role Phone Ulices Baylee Mukesh JORDAN Primary Care Provider [phone] Encounter Details Date Type Department Care Team (Late st Contact Info) Description 07/05/2018 4:15 PM EST Ancillary Procedure Radiology Library at [facility] [place] [phone] Noemi Hudson MD [facility] [place] [address] Social History Tobacco Use Types Packs/Day Years [...] DX Hip (07/05/2018 4:11 PM EST) Narrative [facility] - 07/05/2018 4:11 PM EST This exam is for storage only and is auto-finalizing. Noemi Hudson MD IMG FILM LIBRARY OR DERABLES [place], [place] documented in this encounter Visit Diagnoses Not on filedocumented in this encounter Care Teams Shrub Grower Relationship Specialty Start Date End Date Baylee Elena APRN PCP - General Family Medicine 03/25/18 03/01/22 documented as of this encounter
--- OUTSIDE RECORDS SUMMARY | 2024-05-29 16:53 | XMS_ITS | Encounter Summary ---
Author Organization [facility] [place] [address] Care Team Providers Care Anesthesiology Faculty Name Role Phone Carina Davis Primary Care Provider [phone] Reason for Visit * Reason Comments Medication Refill Encounter Details Date Type Department Care Team (Late st Contact Info) Description 01/12/2023 [place] [address] Cesar Pineda, [facility] [place] [address] Social History Tobacco Use Types Packs/Day Years [...] on filedocumented in this encounter Care Teams Anesthesiology Faculty Relationship Specialty Start Date End Date Carnia Davis PA [address] [place] [phone] PCP - General Family Medicine 03/02/22 documented as of this encounter
--- OUTSIDE RECORDS SUMMARY | 2024-05-29 16:53 | XMS_ITS | Encounter Summary ---
Author Organization [facility] [place] [address] Care Team Providers Care Ostrich Farmer Name Role Phone Carina Davis Primary Care Provider [phone] Encounter Details Date Type Department Care Team (Late st Contact Info) Description 11/20/2022 10:30 AM EDT Office [place] [phone] Cesar Pineda, [facility] [place] [address] High serum thyroid stimulating hormone (TSH); Hypothyroidism, [...] Office Visit from 07/18/2018 in Orthopaedics at [facility] Office Visit from 07/03/2018 in Orthopaedics at [facility] Weight 75.8 kg (167 [...] Studies: ENDOCRINOLOGY THYROID ULTRASOUND REPORT Patient:Alyssa Burnham, [id number] Date of exam: 11/21/2022 Indication: thyroid nodule [...] nodule. Replete vitamin D. Sheila Montiel MD Entry Level Financial Analystrn endocrinology Endocrinology Section [facility] documented in this encounter Plan of Treatment Not on file documented as of this encounter Procedures Procedure Name Priority Date/Time Associated Diagnosis Comments TSH CASCADE Routine 11/20/2022 11:40 AM EDT Thyroid nodule THYROID STIMULATING IMMUNOGLOBULINS Routine 11/20/2022 11:40 AM EDT High serum thyroid stimulating hormone (TSH) THYROID PEROXIDASE ANTIBODY Routine 11/20/2022 11:40 AM EDT High serum thyroid stimulating hormone (TSH) VITAMIN D, 25-HYDROXY Routine 11/20/2022 11:40 AM EDT T3 TOTAL Routine 11/20/2022 11:40 AM EDT High serum thyroid stimulating hormone (TSH) T4, FREE Routine 11/20/2022 11:40 AM EDT documented in this encounter Results * (ABNORMAL) Vitamin D, 25-Hydroxy (11/20/2022 11:40 AM EDT) Vitamin D Total 25 OH 14(L) 21 - 100 ng/mL [facility] Vit D Interp Deficient [facility] Blood Venous Draw / Unknown 11/20/2022 11:40 AM EDT 11/20/2022 11:53 AM EDT Narrative Resulting Agency Comment Spec In Lab Cesar Pineda DO CHEMISTRY ORDERABLE S Performing Organization Address [facility] Co de Phone Number [facility] [place] [address] * (ABNORMAL) T4, free (11/20/2022 11:40 AM EDT) Free T4 0.78(L) 0.93 - 1.70 ng/dL [facility] Comment: Reference Interval (ng/dL): Females: ??First Trimester: 0.97-1.68 ??Second Trimester: 0.77-1.51 ??Third Trimester: 0.77-1.49 Blood 11/20/2022 11:4 0 AM EDT 11/20/2022 11:53 AM EDT Narrative Resulting Agency Comment Spec In Lab Cesar Pineda DO CHEMISTRY ORDERABLE S Performing Organization Address [facility] Co de Phone Number [facility] [place] [address] * (ABNORMAL) TSH [place] (11/20/2022 11:40 AM EDT) Thyroid Stimulating Hormone 4.57(H) 0.27 - 4.20 mcIU/mL [facility] Comment: Reference Interval (mcIU/mL): Females: ??First Trimester: 0.23-3.88 ??Second Trimester: 0.22-3.90 ??Third Trimester: 0.44-4.66 Blood 11/20/2022 11:4 0 AM EDT 11/20/2022 11:52 AM EDT Narrative Resulting Agency Comment Spec In Lab Milagros Jaramillo MD CHEMISTRY ORDERAB LES [facility] [place] [address] * Thyroid Stimulating Immunoglobulins (11/20/2022 11:40 AM EDT) Thyroid Stimulating Immunoglobulin <0.10 <=0.55 IU/L [facility] Blood 11/20/2022 11:4 0 AM EDT 11/20/2022 12:32 PM EDT Narrative Resulting Agency Comment Spec In Lab Sheila Montiel MD IMMUNOLOGY ORDERABLE S Performing Organization Address [facility] Co de Phone Number [facility] [place] [address] * Thyroid peroxidase antibody (11/20/2022 11:40 AM EDT) Thyroperoxidase Ab <10 <=34 IU/mL [facility] Blood 11/20/2022 11:4 0 AM EDT 11/20/2022 12:32 PM EDT Narrative Resulting Agency Comment Spec In Lab Sheila Montiel MD IMMUNOLOGY ORDERABLE S Performing Organization Address [facility] Co de Phone Number [facility] [place] [address] * T3 Total (11/20/2022 11:40 AM EDT) T3 Total 89 80 - 200 ng/dL [facility] Blood 11/20/2022 11:4 0 AM EDT 11/20/2022 11:52 AM EDT Narrative Resulting Agency Comment Spec In Lab Sheila Montiel MD CHEMISTRY ORDERABLES Performing Organization Address [facility]/ZIP Co de Phone Number [facility] [place] [address] documented in this encounter Visit Diagnoses Diagnosis High serum thyroid stimulating hormone (TSH) Hypothyroidism, unspecified type Thyroid nodule Nontoxic uninodular goiter Vitamin D deficiency Unspecified vitamin D deficiency documented in this encounter Care Teams Ostrich Farmer Relationship Specialty Start Date End Date Carina Davis PA [address] [place] [address] PCP - General Family Medicine 03/02/22 documented as of this encounter
--- OUTSIDE RECORDS SUMMARY | 2024-05-29 16:53 | XMS_ITS | Encounter Summary ---
Author Organization [facility] [place] [address] Care Team Providers Care Hat Brim Curler Name Role Phone Carina Davis Primary Care Provider [phone] Reason for Visit * Consultation (Routine) - Closed Specialty Diagnoses / Procedures Referred By Calin vasquez Referred To Contact Endocrinology Diagnoses Thyroid nodule Carina Davis PA [address] [place] [address] [facility] [address] [place] [address] Referral ID Status Reason Start Date Expiration Date V isits Requested Visits Authorized [id number] Closed Consult, Test & Treat PCP Updated and/or Approved 03/02/2022 03/02/2023 6 6 Encounter Details Date Type Department Care Team (Late st Contact Info) Description 05/26/2022 10:00 AM EST Office Visit [place] [address] Cesar Pineda, [facility] [place] [address] Thyroid nodule Social History Tobacco [...] her TSH in March 2022 measured at [facility] was 2.18. Past Medical History: [...] 30.28) [facility]?? PRO TOTAL HIP ARTHROPLASTY 02/04/2014 @TOTAL HIP ARTHROPLASTY, ANTERIOR APPROACH performed by Lance Holland MD at [facility] MAIN OR Social History Socioeconomic History ??? [...] Office Visit from 07/18/2018 in Orthopaedics at [facility] Office Visit from 07/03/2018 in Orthopaedics at [facility] Weight 75.8 kg (167 lb) [as of [...] Data: TSH in March 2022 measured at [facility] was 2.18. Assessment / Plan: 76yo woman presents for evaluation of an incidentally discovered thyroid nodule. This was recently measured up to 1.7cm at [facility] but is 1.5cm today. It [...] included. ENDOCRINOLOGY THYROID ULTRASOUND REPORT Patient:Alyssa Burnham, [id number] Date of exam: 05/26/2022 Indication: Thyroid nodule Comparison: US 02/21/22 (report only) Performed by: Milagros Crump DO, MD Real time images of the thyroid gland were obtained using a [employer] US machine. All measurements are given as [...] agree with the findings as written. Milagros Jaramilol MD, PhD, FACP, FACE documented in this encounter Plan of Treatment Not on file documented as of this encounter Results * (ABNORMAL) TSH [place] (11/20/2022 11:40 AM EDT) Thyroid Stimulating Hormone 4.57(H) 0.27 - 4.20 mcIU/mL [facility] Comment: Reference Interval (mcIU/mL): Females: ??First Trimester: 0.23-3.88 ??Second Trimester: 0.22-3.90 ??Third Trimester: 0.44-4.66 Blood 11/20/2022 11:4 0 AM EDT 11/20/2022 11:52 AM EDT Narrative Resulting Agency Comment Spec In Lab Milagros Jaramillo MD CHEMISTRY ORDERAB LES [facility] [place] [address] documented in this encounter Visit Diagnoses Diagnosis Thyroid nodule Nontoxic uninodular goiter documented in this encounter Care Teams Hat Brim Curler Relationship Specialty Start Date End Date Carina Davis PA [address] [place] [address] PCP - General Family Medicine 03/02/22 documented as of this encounter
--- OUTSIDE RECORDS SUMMARY | 2024-05-29 16:53 | XMS_ITS | Encounter Summary ---
[place] [address] Care Team Providers Care Accountant Tax Name Role Phone Carina Davis Primary Care Provider [phone] Encounter Details Date Type Department Care Team (Late st Contact Info) Description 12/28/2022 Tele[place] [address] Cesar Pineda DO [facility] [place] [address] Social History Tobacco Use Types Packs/Day Years [...] on filedocumented in this encounter Care Teams Accountant Tax Relationship Specialty Start Date End Date Carina Davis PA [address] [place] [id number] PCP - General Family Medicine 03/02/22 documented as of this encounter
--- OUTSIDE RECORDS SUMMARY | 2024-05-29 16:53 | XMS_ITS | Encounter Summary ---
Author Organization [facility] [place] [address] Care Team Providers Care Dye House Vat Worker Name Role Phone Ulices Baylee Mayorga APRN Primary Care Provider [phone] Reason for Visit * Auth/Cert Specialty Diagnoses / Procedures Referred By Calin vasquez Referred To Contact Diagnoses Prosthetic hip implant failure, initial encounter Right AMBER mechanical failure Procedures PRO REVISE TOTAL HIP REPLACEMENT @TOTAL HIP REVISION ARTHROPLASTY, COMPLETE (WRVU 30.28) Referral ID Status Reason Start Date Expiration Date Visits Re quested Visits Authorized [id number] 1 1 Encounter Details Date Type Department Care Team (Late st Contact Info) Description 04/01/2018 1:05 PM EDT Anesthesia [place] [address] Pedro Hoffman MD [facility] [place] [address] Russell Winston MD [facility] [place] [address] Anesthesia Record Procedure Summary Procedure Name Responsible Anesthesiologist Anesthesia Start Time Anesthesia Stop Time @TOTAL HIP REVISION ARTHROPLASTY, COMPLETE (WRVU 30.28) (Right: Hip) Pedro Hoffman MD 04/01/18 1305 04/01/18 1612 Events Date Time Event Comment 04/01/2018 1228 1305 AN Verify 1305 Start 1305 An Start Data 1325 Spinal 1339 Anesthesia Ready 1512 Break/Relief In IVY RICE I RAIL CAR MAINTENANCE MECHANIC 1525 Break/Relief Out 1604 an stop data [...] Epidural 04/01/18; 1601; alexandra figueroa; Jeremy Smith RAIL CAR MAINTENANCE MECHANIC; no longer indicated; Catheter intact, No complications; [...] Hoffman MD - 04/01/2018 4:14 PM EDT [place] Department of Anesthesiology Post-procedure Note Patient: Alyssa BlandAmi Procedure Summary Date Anesthesia Start Anesthesia Stop Room / Location 04/01/18 1305 1612 [facility] Procedure Diagnosis Surgeon Responsible Provider @TOTAL HIP REVISION ARTHROPLASTY, COMPLETE (WRVU 30.28) (Right Hip); MODIFIER PINNACLE ACETABULUM DEPUY (N/A Hip); MODIFIER S-ROM FEMORAL STEM DEPUY (N/A Hip) Prosthetic hip implant failure, initial encounter (Right AMBER mechanical failure) Noemi Hudson MD Chow, Vinca W, MD All Anesthesia Providers: Anesthesiologist: Pedro Hoffman MD RAIL CAR MAINTENANCE MECHANIC: Jeremy Smith CRNA Most Recent Vitals: 04/01/18 1608 BP: 132/63 Pulse: 69 Resp: 16 Temp: 36.4 ??C (97.5 ??F) SpO2: 96% Pain Patient Location: PACU/[facility] Level of Consciousness: Awake and Alert Pain [...] ml Fentanyl 25 mcg Events/Notes Events: None Resident/RAIL CAR MAINTENANCE MECHANIC: JEREMY SMITH Second Resident/RAIL CAR MAINTENANCE MECHANIC: Fellow: Attending Physician: ~~~~~~~~~~~~~~~~~~~~~~~~~~~~~~~~~~~~~~~~~~~~~~~~~~~~~~~~~~~~ * Anesthesia Preprocedure [...] APPROACH performed by Lance Holland MD at [facility] MAIN OR Social History Substance Use Topics [...] consented to blood products. Plan discussed with RAIL CAR MAINTENANCE MECHANIC. PAT Staff Note documented in this encounter Plan of Treatment Not on file documented as of this encounter Procedures Procedure Name Priority Date/Time Associated Diagnosis Comments ANE NEURAXIAL UPDATED Routine 04/01/2018 2:05 PM EDT Procedure Note - Jeremy Smith, RAIL CAR MAINTENANCE MECHANIC - 04/01/2018 1:55 PM EDTThis note is [...] ml Fentanyl 25 mcg Events/Notes Events: None Resident/RAIL CAR MAINTENANCE MECHANIC: JEREMY SMITH Second Resident/RAIL CAR MAINTENANCE MECHANIC: Fellow: Attending Physician: ~~~~~~~~~~~~~~~~~~~~~~~~~~~~~~~~~~~~~~~~~~~~~~~~~~~~~~~~~~~~ documented in this [...] mg documented in this encounter Care Teams Dye House Vat Worker Relationship Specialty Start Date End Date Baylee Elena APRN PCP - General Family Medicine 03/25/18 03/01/22 documented as of this encounter
--- OUTSIDE RECORDS SUMMARY | 2024-05-29 16:53 | XMS_ITS | Encounter Summary ---
Author Organization [facility] [place] [address] Care Team Providers Care Electrician Outside Name Role Phone Carina Davis Primary Care Provider [phone] Encounter Details Date Type Department Care Team [...] on filedocumented in this encounter Care Teams Electrician Outside Relationship Specialty Start Date End Date Carina Davis PA [address] [place] [address] PCP - General Family Medicine 03/02/22 documented as of this encounter
--- OUTSIDE RECORDS SUMMARY | 2024-05-29 16:53 | XMS_ITS | Encounter Summary ---
Author Organization [facility] Address [facility] [place] [address] Care Team Providers Care Data Integration Architect Name Role Phone Ulices Baylee Mayorga APRN Primary Care Provider [phone] Encounter Details Date Type Department Care Team (Latest Contact Info) Description 04/30/2018 2:31 PM EDT - 04/30/2018 11:59 PM EDT Hospital Encounter XRay at [address] [place] [address] Noemi Hudson MD [facility] [place] [address] Prosthetic hip implant failure, initial encounter; Pain [...] and slightly more apparent than on the 2015 study. Procedure Note Vibha Petersen MD - [...] 2013 and slightly more apparent than on [id number] study. IMPRESSION 1. Right revision AMBER without [...] extremity documented in this encounter Care Teams Data Integration Architect Relationship Specialty Start Date End Date Baylee Elena APRN PCP - General Family Medicine 03/25/18 03/01/22 documented as of this encounter
--- OUTSIDE RECORDS SUMMARY | 2024-05-29 16:53 | XMS_ITS | Encounter Summary ---
Author Organization [facility] Address [facility] [place] [address] Care Team Providers Care Train Dispatcher Name Role Phone Ulices Baylee Mayorga APRN Primary Care Provider [phone] Reason for Visit * Reason Comments Follow Up Surgery R AMBER Rev 04/01/18 Encounter Details Date Type Department Care Team (Late st Contact Info) Description 07/03/2018 11:30 AM EST Office [place] [address] Noemi Hudson MD [facility] [place] [address] History of bilateral hip replacements Social History [...] progressis noted in terms of pain and methodist of function. QUESTIONNAIRE RESPONSES: General Health, Prior [...] means documented in this encounter Care Teams Train Dispatcher Relationship Specialty Start Date End Date Baylee Elena, SPORTS UMPIRE PCP - General Family Medicine 03/25/18 03/01/22 documented as of this encounter
--- OUTSIDE RECORDS SUMMARY | 2024-05-29 16:53 | XMS_ITS | Encounter Summary ---
Author Organization [facility] [place] [address] Care Team Providers Care Production Assistant Name Role Phone Ulices Baylee Mayorga APRN Primary Care Provider [phone] Encounter Details Date Type Department Care Team (Late st Contact Info) Description 02/26/2019 Orders [place] [address] Noemi Hudson MD [facility] DR [place] [address] 02/04/2014 Dr. Holland Left Anterior AMBER; 04/01/2018 [...] BLESSING [facility] ([phone]), at 02/26/2019 1:30 PM Narrative 02/26/2019 1:30 [...] this report, please contact the number below. Authorizing Provider Result Van Hudson MD IMWilliam DX ORDERABLES documented in [...] means documented in this encounter Care Teams Production Assistant Relationship Specialty Start Date End Date Baylee Elena, NIKKI PCP - General Family Medicine 03/25/18 03/01/22 documented as of this encounter
--- OUTSIDE RECORDS SUMMARY | 2024-05-29 16:53 | XMS_ITS | Encounter Summary ---
Author Organization [facility] [place] [address] Care Team Providers Care Product Assembler Name Role Phone Carina Davis Primary Care Provider [phone] Encounter Details Date Type Department Care Team (Late st Contact Info) Description 12/28/2022 [place] [phone] Cesar Pineda, [facility] [place] [address] Social History Tobacco Use Types Packs/Day Years [...] on filedocumented in this encounter Care Teams Product Assembler Relationship Specialty Start Date End Date Carina Davis PA [address] [place] [address] PCP - General Family Medicine 03/02/22 documented as of this encounter
--- OUTSIDE RECORDS SUMMARY | 2024-05-29 16:53 | XMS_ITS | Encounter Summary ---
Author Organization [facility] [place] [address] Care Team Providers Care Water Quality Specialist Name Role Phone Baylee Elena APRN Primary Care Provider [phone] Reason for Visit * Reason Onset Date Comments Physical Therapy 05/01/2018 Encounter Details Date Type Department Care Team (Late st Contact Info) Description 05/01/2018 [place] [address] Noemi Hudson MD [facility] [place] [address] Physical Therapy Social History Tobacco Use Types [...] - 05/01/2018 3:30 PM EDT Mariana from [facility] in [place], [place] called requesting a PT referral and op note from Dr. Hudson's AMBER revision on Alyssa. This was faxed over via [employer] this afternoon. documented in this encounter Plan of Treatment Not on file documented as of this encounter Visit Diagnoses Not on filedocumented in this encounter Care Teams Water Quality Specialist Relationship Specialty Start Date End Date Baylee Elena APRN PCP - General Family Medicine 03/25/18 03/01/22 documented as of this encounter
--- OUTSIDE RECORDS SUMMARY | 2024-05-29 16:53 | XMS_ITS | Encounter Summary ---
[place] [address] Care Team Providers Care Patrol Lady Name Role Phone Carina Davis Primary Care Provider [phone] Encounter Details Date Type Department Care Team (Latest Contact Info) Description 01/10/2023 10:45 AM EDT Laboratory Appointment Lab [address] [place] [address] Thyroid nodule; Vitamin D deficiency [...] Date/Time Associated Diagnosis Comments TSH CASCADE Routine 01/10/2023 10:54 AM EDT Thyroid nodule Vitamin D deficiency VITAMIN D, 25-HYDROXY Routine 01/10/2023 10:54 AM EDT Thyroid nodule Vitamin D deficiency documented in this encounter Results * TSH Beadle (01/10/2023 10:54 AM EDT) Thyroid Stimulating Hormone 1.83 0.27 - 4.20 mcIU/mL [facility] Comment: Reference Interval (mcIU/mL): Females: ??First Trimester: 0.23-3.88 ??Second Trimester: 0.22-3.90 ??Third Trimester: 0.44-4.66 Blood 01/10/2023 10:5 4 AM EDT 01/10/2023 11:12 AM EDT Narrative Resulting Agency Comment Spec In Lab Cornell Harper MD CHEMISTRY ORDERABLE S Performing Organization Address City/[facility]/ZIP Co de Phone Number [facility] [place] [address] * Vitamin D, 25-Hydroxy (01/10/2023 10:54 AM EDT) Vitamin D Total 25 OH 34 21 - 100 ng/mL [facility] Vit D Interp Sufficient [facility] Blood 01/10/2023 10:5 4 AM EDT 01/10/2023 11:12 AM EDT Narrative Resulting Agency Comment Spec In Lab Cornell Harper MD CHEMISTRY ORDERABLE S Performing Organization Address City/[facility]/ZIP Co de Phone Number [facility] [place] [address] documented in this encounter Visit Diagnoses Diagnosis Thyroid nodule Nontoxic uninodular goiter Vitamin D deficiency Unspecified vitamin D deficiency documented in this encounter Care Teams Patrol Lady Relationship Specialty Start Date End Date Carina Davis PA [address] [address] PCP - General Family Medicine 03/02/22 documented as of this encounter
--- OUTSIDE RECORDS SUMMARY | 2024-05-29 16:53 | XMS_ITS | Encounter Summary ---
[place] [address] Care Team Providers Care Jumpbasting Lining Baster Name Role Phone Carina Davis Primary Care Provider [phone] Encounter Details Date Type Department Care Team (Late st Contact Info) Description 11/28/2022 Telephone [place] [phone] Leanne Larsen RN Social History Tobacco Use [...] on filedocumented in this encounter Care Teams Jumpbasting Lining Baster Relationship Specialty Start Date End Date Carina Davis PA [address] [place] [id number] PCP - General Family Medicine 03/02/22 documented as of this encounter
--- OUTSIDE RECORDS SUMMARY | 2024-05-29 16:53 | XMS_ITS | Encounter Summary ---
Author Organization [facility] [place] [address] Care Team Providers Care Catalogue Illustrator Name Role Phone Carina Davis Primary Care Provider [phone] Encounter Details Date Type Department Care Team (Late st Contact Info) Description 11/22/2022 11:25 AM EDT Office Visit [place] [phone] Cesar Pineda, [facility] ENDO[place] [address] Thyroid nodule; Hypothyroidism, unspecified type; Vitamin D [...] Visit from 07/18/2018 in [facility] [place] [facility] Office Visit from 07/03/2018 in [facility]opaed[facility] at [facility] Weight 75.8 kg (167 lb) [as of [...] Dr. Harper. Cesar Pineda DO Endocrinology Fellow [facility] * Cornell Harper MD - 11/22/2022 11:25 AM EDT I was present for the entire thyroid biopsy procedure and agree with the procedure. I agree with Graciela's assessment and plan regarding initiation levothyroxine and high dose Vitamin D supplementation documented in this encounter Plan of Treatment Not on file documented as of this encounter Procedures Procedure Name Priority Date/Time Associated Diagnosis Comments NON-FACULTY NEUROPSYCHOLOGIST FINAL REPORT Routine 11/22/2022 11:12 AM EDT CYTOPATHOLOGY NON-GYNECOLOGICAL Routine 11/22/2022 11:12 AM EDT Thyroid nodule documented in this encounter Results * Non-Color Artist Final Report (11/22/2022 11:12 AM EDT) Diagnosis Discussion [id number] ? Location: 3B The signing pathologist has (i) examined the relevant preparation(s) for the specimen(s) and (ii) rendered or confirmed the diagnosis(es). . ? Non-Color Artist Final DIAGNOSIS Nondiagnostic Electronically signed by: ?Kwaku YIP, Patricia Verified: ??11/23/2022 15:21 ??Pathologist Performed at: ??-[facility] Dept. of Pathology, [place] [address] Family Services Specialist: Irene Jimenez MD, FCAP, ??CLIA Certificate: [id number] DISCUSSION Thyroid, right (FNA): Nondiagnostic/Un satisfactory (see note). Specimen processed and examined but [...] sample was received for potential molecular testing. 11/23/2022 3:21 PM EDT [facility] THYROID STRUCTURE / Unknown 11/22/2022 11:12 AM EDT 11/22/2022 11:12 AM EDT Cesar Pineda DO PATHOLOGY/CYTOLOGY ORDERABLES [facility] [address] [place] [address] * Cytopathology Non-Gynecological (11/22/2022 11:12 AM EDT) AP Specimen 11/22/2022 11:1 2 AM EDT 11/22/2022 11:12 AM EDT Narrative [facility] - 11/22/2022 11:12 AM EDT Specimen requisition ordered. ??Separate Pathology report to follow Cornell Harper MD PATHOLOGY/CYTOLOGY ORDERABLES Performing Organization Address City/State/[facility] [place] [address] documented in this encounter Visit Diagnoses Diagnosis Thyroid nodule Nontoxic uninodular goiter Hypothyroidism, unspecified type Vitamin D deficiency Unspecified vitamin D deficiency documented in this encounter Care Teams Catalogue Illustrator Relationship Specialty Start Date End Date Carina Davis PA [address] [address] PCP - General Family Medicine 03/02/22 documented as of this encounter
--- OUTSIDE RECORDS SUMMARY | 2024-05-29 16:53 | XMS_ITS | Encounter Summary ---
[place] [address] Care Team Providers Care Hot Air Furnace Installer And Repairer Name Role Phone Baylee Elena APRN Primary Care Provider Reason for Visit * Reason Onset Date Comments Other 07/05/2018 Dislocation 06/16 08/02 Encounter Details Date Type Department Care Team (Late st Contact Info) Description 07/05/2018 Telephone [place] [phone] Chelsi Bermudez RMA Other (Dislocation 07/05/18) Social [...] I asked that she call us at [phone] Opt 2 for schding or Opt 3 for Nursing/[place] call center. * Telephone Encounter - Chelsi Bermudez RMA - 07/05/2018 2:31 PM EST Subjective: Dislocation of R Hip DOI 07/05/18 SP Surgeon Role Noemi Hudson MD Primary [place], Sarah Higginbotham MD Resident-Surgeon Jad Procedure Laterality [...] call the ambulance and ws transported to [facility] in [facility]. They did a manipulation and were able to put her hip back in place. She was placed into a knee immobilizer. She is being discharged today and was told she would need follow up with Dr Hudson. Plan: I let her know that she needs to ask them to push all images and ed notes to [facility] so Dr Hudson will have them for review. I let her know that I will send this message to Dr Hudson and we will call her with a new plan for follow up. Patient/Responsible green party voices an understanding of advice? yes documented in this encounter Plan of Treatment Not on file documented as of this encounter Visit Diagnoses Not on filedocumented in this encounter Care Teams Hot Air Furnace Installer And Repairer Relationship Specialty Start Date End Date Baylee Elena, RFID MANAGER PCP - General Family Medicine 03/25/18 03/01/22 documented as of this encounter
--- OUTSIDE RECORDS SUMMARY | 2024-05-29 16:53 | XMS_ITS | Encounter Summary ---
Author Organization [facility] Address [facility] [place] [address] Care Team Providers Care Barrelhead Inspector Name Role Phone Ulices Baylee Mayorga APRN Primary Care Provider [phone] Encounter Details Date Type Department Care Team (Latest Contact Info) Description 02/26/2019 11:15 AM EDT - 02/26/2019 11:59 PM EDT Hospital Encounter XRay at [address] [place] [address] Noemi Hudson MD [facility] [place] [address] Primary osteoarthritis of both knees Discharge Disposition: [...] XR Knee Standing Alignment AP Lat [place] Kenney Bilat (02/26/2019 11:43 AM EDT) Anatomical Region [...] leg documented in this encounter Care Teams Barrelhead Inspector Relationship Specialty Start Date End Date Baylee Elena, NIKKI PCP - General Family Medicine 03/25/18 03/01/22 documented as of this encounter
--- OUTSIDE RECORDS SUMMARY | 2024-05-29 16:53 | XMS_ITS | Encounter Summary ---
[place] [address] Care Team Providers Care Technology Applications Teacher Name Role Phone Samnicholas Baylee Nicholas JORDAN Primary Care Provider [phone] Reason for Visit * Reason Onset Date Comments Other 04/03/2018 Encounter Details Date Type Department Care Team (Late st Contact Info) Description 04/03/2018 [place] [phone] Chelsi Bermudez RMA Other Social History Tobacco [...] agreed to this plan. She will song la poditrist or her PCP. Patient/Responsible democrat voices an understanding of advice? yes documented in this encounter Plan of Treatment Not on file documented as of this encounter Visit Diagnoses Not on filedocumented in this encounter Care Teams Technology Applications Teacher Relationship Specialty Start Date End Date Baylee Elena APRN PCP - General Family Medicine 03/25/18 03/01/22 documented as of this encounter
--- OUTSIDE RECORDS SUMMARY | 2024-05-29 16:54 | XMS_ITS | Encounter Summary ---
[place] [address] Care Team Providers Care Environmental Health Technologist Name Role Phone Baylee Elena APRN Primary Care Provider [phone] Reason for Visit * Reason Onset Date Comments Pre Procedure Call 03/28/2018 Encounter Details Date Type Department Care Team (Late st Contact Info) Description 03/28/2018 Telephone [place] [phone] Noemi Hudson MD [facility] [place]ED[place] [address] Pre Procedure Call Social History Tobacco Use [...] left a message for patient to call [phone] directly and schedule surgery with Dr. Hudson on 04/01/18. documented in this encounter Plan of Treatment Not on file documented as of this encounter Visit Diagnoses Not on filedocumented in this encounter Care Teams Environmental Health Technologist Relationship Specialty Start Date End Date Baylee Elena APRN PCP - General Family Medicine 03/25/18 03/01/22 documented as of this encounter
--- OUTSIDE RECORDS SUMMARY | 2024-05-29 16:54 | XMS_ITS | Encounter Summary ---
[place] [address] Care Team Providers Care Senior Technical Architect Name Role Phone Jamarcus Rodriguez MD Primary Care Provider [phone] Encounter Details Date Type Department Care Team (Late st Contact Info) Description 01/13/2014 Orders [place] [address] Lance Holland MD [address] [place] [address] OA (osteoarthritis) (Primary Dx) Social History Tobacco [...] site documented in this encounter Care Teams Senior Technical Architect Relationship Specialty Start Date End Date Jamarcus Rodriguez MD [address] [place] [address] PCP - General 06/07/10 03/24/18 documented as of this encounter
--- OUTSIDE RECORDS SUMMARY | 2024-05-29 16:54 | XMS_ITS | Encounter Summary ---
[place] [address] Care Team Providers Care Emery Grinder Name Role Phone Jamarcus Rodriguez MD Primary Care Provider [phone] Encounter Details Date Type Department Care Team (Latest Contact Info) Description 02/09/2014 Anti-Coag Telephone [place] [phone] Julio Rader RN Status post right hip [...] Therapeutic Range: 2.0-3.0 INR: 1.7 Drawn by: [facility] Patient states that she was instructed to [...] Results * (ABNORMAL) External Lab Results (02/09/2014) INR, POC 1.7([facility]) 0.9 - 1.1 Comment:[facility] Historical Provider CHEMISTRY ORDERAB LES documented in this encounter Visit Diagnoses Diagnosis Status post right hip replacement Hip joint replacement by other means documented in this encounter Care Teams Emery Grinder Relationship Specialty Start Date End Date Jamarcus Rodriguez MD [address] [place] [address] PCP - General 06/07/10 03/24/18 documented as of this encounter
--- OUTSIDE RECORDS SUMMARY | 2024-05-29 16:54 | XMS_ITS | Encounter Summary ---
[place] [address] Care Team Providers Care Sequins Slinger Name Role Phone Jamarcus Rodriguez MD Primary Care Provider [phone] Encounter Details Date Type Department Care Team (Latest Contact Info) Description 02/19/2014 Anti-Coag Telephone [place] [address] Betty Langford, RN Status post [...] Therapeutic Range: 2.0-3.0 INR: 1.5 Drawn by: [facility] Patient presents with no signs of [...] Results * (ABNORMAL) External Lab Results (02/19/2014) INR, POC 1.5(Externa l Lab) 0.9 - 1.1 02/19/2014 Historical Provider CHEMISTRY ORDERAB LES documented in this encounter Visit Diagnoses Diagnosis Status post right hip replacement Hip joint replacement by other means documented in this encounter Care Teams Sequins Slinger Relationship Specialty Start Date End Date Jamarcus Rodriguez MD [address] [place] [address] PCP - General 06/07/10 03/24/18 documented as of this encounter
--- OUTSIDE RECORDS SUMMARY | 2024-05-29 16:54 | XMS_ITS | Encounter Summary ---
Author Organization [facility] Address [facility] [place] [address] Care Team Providers Care Racking Technician Name Role Phone Jamarcus Rodriguez MD Primary Care Provider Encounter Details Date Type Department Care Team (Latest Contact Info) Description 01/22/2015 10:37 AM EDT - 01/22/2015 11:59 PM EDT Hospital Encounter XRay at [address] [place] [phone] Aftercare following joint replacement Social History Tobacco [...] replacement documented in this encounter Care Teams Racking Technician Relationship Specialty Start Date End Date Jamarcus Rodriguez MD [address] [place] [address] PCP - General 06/07/10 03/24/18 documented as of this encounter
--- OUTSIDE RECORDS SUMMARY | 2024-05-29 16:54 | XMS_ITS | Encounter Summary ---
Author Organization [place] [address] Care Team Providers Care Collar Folder Operator Name Role Phone Jamarcus Rodriguez MD Primary Care Provider [phone] Reason for Visit * Reason Comments Left Hip Pain Encounter Details Date Type Department Care Team (Late st Contact Info) Description 02/02/2014 2:30 PM EDT Office [place] [phone] Lance Shukla MD [place] [address] Pain in limb; Debility; DJD (degenerative joint [...] Tom RN acting as a scribe for Lance Shukla MD. PREOPERATIVE VISIT HISTORY OF PRESENT [...] she plans to go home after surgery. Lance Shukla MD documented in this encounter Plan of Treatment Not on file documented as of this encounter Procedures Procedure Name Priority Date/Time Associated Diagnosis Comments URINE CULTURE Routine 02/02/2014 2:07 PM EDT Debility HEMOGRAM Routine 02/02/2014 11:17 AM EDT Pain in limb DIFFERENTIAL, AUTOMATED Routine 02/02/2014 11:17 AM EDT Pain in limb TYPE AND SCREEN, SDP (FUTURE SURGERY, [facility] SAME DAY PROGRAM ONLY) Routine 02/02/2014 11:17 [...] EDT Pain in limb BASIC METABOLIC PANEL Routine 02/02/2014 11:17 AM EDT Pain in limb documented in this encounter Results * Urine culture Clean Catch Urine (02/02/2014 2:07 PM EDT) Urine Culture ? Patient Name: OZ DIALLO, ?Ordered By: LANCE SHUKLA ? ALYSSA Hanna ? MR#: [id number] ?LOC: ??3D ? /Sex: ??1945 (68 years), [...] Narrative Resulting Agency Comment Spec In Lab Lance Shukla MD MICROBIOLOGY - GENER AL ORDERABLES [facility] * Antibody screen (02/02/2014 11:17 AM EDT) Ab Screen Interp Negative [facility] Expires at 2359 on: [id number] [facility] Blood specimen (specimen) 02/02/2014 11:17 AM EDT 02/02/2014 11:38 AM EDT Narrative Resulting Agency Comment Spec In Lab Lance Shukla MD BLOOD BANK LAB ORDER PATRICIA Performing Organization Address [facility] Co de Phone Number [facility] * ABO/Rh Typing (02/02/2014 11:17 AM EDT) Pathologist [facility] ABORH Type A Pos [facility] Blood specimen (specimen) 02/02/2014 11:17 AM EDT 02/02/2014 11:38 AM EDT Narrative Resulting Agency Comment Spec In Lab Lance Shukla MD BLOOD BANK LAB ORDER PATRICIA Performing Organization Address City/[facility] Co de Phone Number [facility] * Differential, Automated (02/02/2014 11:17 AM EDT) Neutrophil % 62.3 34.0 - 71.0 % [facility] Neutrophil Absolute 3.86 1.50 - 6.30 x10(3)/mcL [facility] Lymph % 28.8 19.0 - 53.0 % [facility] Lymphocytes Abs 1.8 1.0 - 3.6 x10(3)/mcL [facility] Monocyte % 7.3 4.0 - 13.0 % [facility] Monocyte Abs 0.4 0.2 - 1.0 x10(3)/mcL [facility] Eos % 1.1 0.0 - 7.0 % [facility] Eosinophils Abs 0.1 0.0 - 0.5 x10(3)/mcL [facility] Basophil % 0.3 0.0 - 2.0 % [facility] Baso Absolute 0.0 0.0 - 0.2 x10(3)/mcL [facility] Immature Gran % 0.20 0.00 - 0.66 % [facility] Comment: Immature granulocytes(IG's)percentage and absolute count will include metamyelocytes, myelocytes, and promyelocytes. Blood smears from CBCs yielding IG's will be scanned manually for concordance. If this scan disagrees with the automated IG or if promyelocytes are noted, a manual differential will be performed. Immature Gran Absolute 0.01 0.00 - 0.05 x10(3)/mcL [facility] Blood specimen (specimen) 02/02/2014 11:17 AM EDT 02/02/2014 11:34 AM EDT Narrative Resulting Agency Comment Spec In Lab Lance Shukla MD HEMATOLOGY ORDERABLE S [facility] * Hemogram (02/02/2014 11:17 AM EDT) White Blood Cell 6.2 4.0 - 10.0 x10(3)/mcL [facility] Red Blood Cell 4.66 3.93 - 5.22 x10(6)/mcL [facility] Hemoglobin 13.5 11.2 - 15.7 gm/dL [facility] Hematocrit 40.2 34.0 - 45.0 % [facility] Mean Cell Volume 86.3 79.0 - 94.0 fL [facility] Mean Cell Hemoglobin 29.0 26.6 - 32.2 pg [facility] Mean Cell Hemoglobin Concentration 33.6 32.0 - 36.5 gm/dL [facility] Platelet 200 145 - 370 x10(3)/mcL [facility] RDW Standard Deviation 44.4 35.0 - 46.0 fL [facility] RDW coefficient of variation 14.2 10.9 - 14.4 % [facility] Mean Platelet Volume 9.8 9.0 - 12.0 fL [facility] Blood specimen (specimen) 02/02/2014 11:17 AM EDT 02/02/2014 11:34 AM EDT Narrative Resulting Agency Comment Spec In Lab Lance Shukla MD HEMATOLOGY ORDERABLE S Performing Organization Address [facility] de Phone Number [facility] * Sedimentation rate (02/02/2014 11:17 AM EDT) Sedimentation Rate Automated 11 0 - 20 mm/hr [facility] Blood specimen (specimen) 02/02/2014 11:17 AM EDT 02/02/2014 11:34 AM EDT Narrative Resulting Agency Comment Spec In Lab Lance Shukla MD HEMATOLOGY ORDERABLE S Performing Organization Address [facility] de Phone Number [facility] * High Sensitivity CRP (02/02/2014 11:17 AM EDT) C-Reactive Protein High Sensitivity 2.8 mg/L [facility] Comment: Interpretations: 1) For accurate [...] Shukla MD CHEMISTRY ORDERABLES Performing Organization Address [facility] de Phone Number [facility] * Albumin Level (02/02/2014 11:17 AM EDT) Albumin 4.5 3.2 - 5.2 gm/dL [facility] Blood specimen (specimen) 02/02/2014 11:17 AM EDT 02/02/2014 11:34 AM EDT Narrative Resulting Agency Comment Spec In Lab Lance Shukla MD CHEMISTRY ORDERABLES Performing Organization Address [facility] de Phone Number [facility] * Protein, total (02/02/2014 11:17 AM EDT) Protein, Total 7.4 6.4 - 8.3 gm/dL [facility] Blood specimen (specimen) 02/02/2014 11:17 AM EDT 02/02/2014 11:34 AM EDT Narrative Resulting Agency Comment Spec In Lab Authorizing Provider Result Van Shukla MD CHEMISTRY ORDERABLES Performing Organization Address [facility] de Phone Number [facility] * Prothrombin Time (02/02/2014 11:17 AM EDT) Prothrombin Time 12.6 12.5 - 15.5 sec [facility] Comment: [facility] Transfusion Committee Guidelines: INR less than 2.0, PTT less than OR equal to 43.5 seconds, or Fibrinogen greater than or equal to 100 mg/dl indicate adequate procoagulant activity for hemostasis in patients without underlying bleeding disorders. International Normalization Ratio 0.9 0.9 - 1.1 [facility] Blood specimen (specimen) 02/02/2014 11:17 AM EDT 02/02/2014 11:34 AM EDT Narrative Resulting Agency Comment Spec In Lab Lance Shukla MD HEMATOLOGY ORDERABLE S [facility] * Basic Metabolic Panel (non-fasting) (02/02/2014 11:17 AM EDT) Glucose 102 60 - 199 mg/dL [facility] Comment:Diabetes: >=200 mg/d L plus symptoms Blood Urea Nitrogen 14 8 - 18 mg/dL [facility] Creatinine 0.76 0.70 - 1.20 mg/dL [facility] Comment: Please note that the pediatric reference intervals supplied above were not validated at [facility]. Results from pediatric patients should be interpreted [...] 104 98 - 107 mmol/L [facility] Carbon Dioxide 25 22 - 31 mmol/L [facility] Anion Gap 12 5 - 15 mmol/L [facility] Calcium 9.7 8.5 - 10.5 mg/dL [facility] Est Glomerular Filtration Rate >60 >=60 [facility] Comment: This estimated [...] the following links into your internet browser. [email or web address]f Blood specimen (specimen) 02/02/2014 11:17 AM EDT 02/02/2014 11:34 AM EDT Narrative Resulting Agency Comment Spec In Lab Lance Shukla MD CHEMISTRY ORDERABLES [facility] documented in this encounter Visit Diagnoses Diagnosis Pain in limb Debility Debility, unspecified DJD (degenerative joint disease) of hip Osteoarthrosis, unspecified whether generalized or localized, pelvic region and thigh documented in this encounter Care Teams Collar Folder Operator Relationship Specialty Start Date End Date Jamarcus Rodriguez MD [address] [place] [address] PCP - General 06/07/10 03/24/18 documented as of this encounter
--- OUTSIDE RECORDS SUMMARY | 2024-05-29 16:54 | XMS_ITS | Encounter Summary ---
[place] [address] Care Team Providers Care Cylinder Head Assembler Name Role Phone Nirav Turner MD Primary Care Provider [phone] Encounter Details Date Type Department Care Team (Late st Contact Info) Description 02/04/2014 11:56 AM EDT - 02/04/2014 2:09 PM EDT Surgery [place] [phone] Steff Holland MD DOT [address] [place] [address] TOTAL HIP ARTHROPLASTY, ANTERIOR APPROACH (WRVU 19.6) [...] The INR should be reported to the [facility] Ortho clinic at [phone], and you will be informed of any [...] bowel movement. You can also take an jxra-bto-hhibnia medication, miralax if needed to combat constipation. [...] 1. You will have followup appointments at [facility] as indicated in Future Appointment and Orders. Youwill have an xray prior to those appointments so please come to Radiology, desk 3T, 1 hour BEFORE your appointment for those x- rays. (plan to arive at 9:30 am for x-rays) Future Appointments Date Time Provider Department Center 03/11/2014 10:30 AM Betty Dong APRN [facility] [place] [facility] If you have questions or concerns: [...] home with family. Discharge summary faxed to [facility]. LADONNA DAUGHERTY RN * Chad Heath [...] Rehabilitation Department Chad Heath PTA Pager # [phone] * [facility] - 02/06/2014 6:02 AM EDT ORTHOPAEDIC [...] Intake/Output Summary (Last 24 hours) at 02/05/14 0531 Last data filed at 02/05/14 0453 Gross [...] on chronically, no bridging Pain control: d/c EDUCATIONAL MANAGER, oral pain medications D/c levine, LISAIV Discharge planning: home vs rehab per PT [...] s/p Left Anterior Approach AMBER Surgery: 02/04/2014 [id number] Procedure(s) (LRB): @TOTAL HIP ARTHROPLASTY, ANTERIOR APPROACH [...] 5:09 PM EDT 1700- Pt. Instructed about EDUCATIONAL MANAGER. * Ashly Dong RN - 02/04/2014 [...] February 04, 2014 Surgeon: Steff Holland MD Master Yacht: Frandy Hooper MD Anesthesia: GET Pre-operative diagnosis: Left hip osteoarthritis Post-operative diagnosis: Same Surgical Procedure Performed: Injection left hip with 10 cc marcaine 0.25% with epi, into skin and subcutaneous tissues Left total hip arthroplasty, anterior Hueter approach with [place] table Left hip intraoperative radiologic examination Components Used: Depuy Corail stem, size 11, standard [place] cup, 50 mm, solid 32 mm ID, [...] wasperformed. Patient was positioned supine on the [place] table, both feet and ankles were padded [...] liner was placed and impacted according to dough panner's instructions. Any impinging osteophytes were removed. The [...] laterally. At the same time, the assistant professor of spanish leaned against the thigh to optimize femoral [...] Implant Name Type Inv. Item Serial No. Reheat Furnace Operator Lot No. LRB No. Used Action CUP,HIP,ACETB,GRPTN,100,50MM ([id number]) (AUTOREQ) - [id number] IMPLANTS CUP,HIP,ACETB,GRPTN,100,50MM ([id number]) (AUTOREQ) [id number] Left 1 Implanted INSER,ALTRX,NT,32Q11PH ([id number]) (AUTOREQ) - [id number] IMPLANTS INSER,ALTRX,NT,[id number] ([id number]) (AUTOREQ) [id number] Left 1 Implanted STEM,CRL2,STD,SZ11 ([id number]) (AUTOREQ) - [id number] IMPLANTS STEM,CRL2,STD,SZ11 ([id number]) (AUTOREQ) [id number] Left 1 Implanted BALL,ATC,BRN,+5MM,32MM ([id number]) (AUTOREQ) - [id number] IMPLANTS BALL,ATC,BRN,+5MM,32MM ([id number]) (AUTOREQ) [id number] Left 1 Implanted * OR Attestation - [...] Alyssa Burnham Patient Age: 68 y.o. Language: Swedish Race: White Ethnicity: Not nor Admit date: 02/04/2014 Discharge date and time: 02/06/2014 Attending Physician: Steff Holland MD Discharge Physician: Steff Holland MD Follow-up Recommendations for Providers: Please see patient discharge instructions for additional details. Inpatient Provider Contact Information: Steff Holland MD Joints: [phone] After hours and weekends, call [facility] Rotary Rig Engine Operator, , and have Orthopedic resident paged. [...] an outside provider Mikael Salgado D.O. in [place] after she did experience increased left hip pain after shoveling 3 mm months. At that time, The aforementioned Orthopaedic provider did order a left hip MRI scan revealed a cam lesion moderate severe degenerative joint disease. She was advised to seek consultation for possible left hip arthroplasty. She does split her time between [place] and [place] to care for her aging parents essentially spending ~ 6 months in [place] and [place]. She describes her left hip pain as moderate to severe with difficulty putting her shoes and socks on. She does use a cane for assistance and zvlo-baw-faszxdt anti-inflammatories. She is just about to start [...] 16 Resp: [16] SpO2 SpO2: 95 % @@ Art BP BP (Arterial Line): -- Functional [...] The INR should be reported to the [facility] Ortho clinic at [phone], and you will be informed of any [...] bowel movement. You can also take an jwtu-tvr-hlbyudt medication, miralax if needed to combat constipation. [...] 1. You will have followup appointments at [facility] as indicated in Future Appointment and Orders. [...] 03/11/2014 10:30 AM Betty Dong APRN Orthopaedics [phone] [facility] Joint Appt Questionnaire [facility] [phone] [facility] Future Orders Please Complete By Expires Referral for Anticoagulation Monitoring [GHB025 Custom] Process Instructions: If no progress note [...] Referral to Home Health - at DISCHARGE [IZF7360 CPT(R)] Process Instructions: Scheduling Instructions: Comments: DOCUMENTATION FOR VNA SERVICES Alyssatheo Burnham Discharge to own home: [address] [phone] (home) Wedding Day Coordinator's Name: Self In discussion with the attending physician, it is certified that this patient is under their care and that they, or a nurse practitioner, clinical nurse specialist or physician's assistant professor of spanish who is working directly with them, had [...] [facility] PHONE: [phone] FAX: [phone] Home care orders for Total Hip Replacements: [...] PT/INR results to be reported as follows: [facility] Orthopedic anticoagulation (Coumadin) clinic @ ; 2. [...] Questions: Responses: Agency name and contact information [facility] Patient location post discharge Home What services are requested Registered Nurse Physical Therapy Start date 02/07/2014 Responsible MD post discharge contact info PCP/[facility] Orthopaedic Service Primary Care Provider: NIRAV TURNER MD [phone] * Plan of Care - Marcelina Liu [...] 4:45 PM EDT Office of Care Management/Clinical Store Warehouse Associate (CRC)/Initial Assessment CRC Todd Matthew RN (pager [phone]) Patient: Alyssa Bland-Obed : 1945 (68 y.o.) Home: [place] [address]* LOS: 1 day Care reviewed with Dr. [...] directives: Received ?? Insurance coverage: Medicare AB, Digital [employer] [facility] ?? Admission status: 02/04/14 IPI Order to Admit is appropriate and waiting to be signed by an attending provider; notified Dr. Steff Holland via email. ?? Anticipated barriers to discharge: None ?? Financial concerns: None ?? Identified patient/family concerns r/t discharge: None ?? Squad Sergeant referral indicated: No ?? Baseline functional status/mobility: Independent ?? Current home/community services/equipment: Walker ?? Current functional status/mobility: Walker with stand by assist ?? Anticipated discharge date: Tuesday 02/06 ?? Anticipated discharge place: Home into care of friend ?? Home health agency: [facility] RN/PT orders pended. ?? Transportation at discharge: Friend ?? PCP: NIRAV TURNER MD, Future Appointments Date Time Provider Department Center 03/11/2014 10:30 AM Betty Dong, NIKKI [facility] [address] [place] [address] CLIN Plan: Care Management will continue to monitor progress, follow for continuity of care, and assist with discharge planning. * Initial Assessments - Good Orozco, OT - 02/05/2014 1:08 PM EDT Occupational Therapy Evaluation [facility]: [facility] 68 [facility] patient [...] APPROACH performed by Steff Holland MD at [facility] Social History: Patient lives alone, however girlfriend will be staying with her for a week. Home Setup: one level, walk in (3 inch step) shower DME: shower chair, higher toilet seat with arms, head soft sugar operator, walker, cane Baseline ADL/Mobility: Independent with ADLS [...] eval Total timed interventions: 0 minutes Pager: [phone] GOOD OROZCO OT 02/05/2014 Occupational Therapy Rehabilitation Department * Initial Assessments - Tierra Fields, PT - 02/05/2014 12:46 PM EDT [...] APPROACH performed by Steff Holland MD at [facility] Social History: Patient is but has a friend to stay with her at d/c. 1 step x 3 to enter. Ind amb LENS POLISHER HAND Precautions/Special Considerations: WBAT L L/E, standard hip [...] 35 minutes Total timed treatment: 0 minutes eval TIERRA FIELDS, PT Pager: [phone] * Plan of Care - Sofia Mills [...] Operative Note Patient Name: Alyssa Burnham : [id number] MR#: [id number] Case Date: 02/04/2014 Surgeon: Surgeon(s) and Role: [...] documented in this encounter Plan of Treatment Pending Results Name Type Priority Associated Diagnoses [...] 02/06/2014 3:35 AM EDT BASIC METABOLIC PANEL Routine 02/06/2014 3:35 AM EDT HEMOGRAM Routine 02/05/2014 3:21 AM EDT DIFFERENTIAL, AUTOMATED Routine 02/05/2014 3:21 AM EDT PROTHROMBIN TIME Routine 02/05/2014 3:21 AM EDT CBC (WITH DIFF) Routine 02/05/2014 3:21 AM EDT BASIC METABOLIC PANEL Routine 02/05/2014 3:21 AM EDT SURGICAL PATHOLOGY [...] (ABNORMAL) Differential, Automated (02/06/2014 3:35 AM EDT) Neutrophil % 76.9(H) 34.0 - 71.0 % CERNER MILLENNIUM Neutrophil Absolute 6.23 1.50 - 6.30 x10(3)/mc L CERNER MILLENNIUM Lymph % 14.6(L) 19.0 - 53.0 % CERNER MILLENNIUM Lymphocytes Abs 1.2 1.0 - 3.6 x10(3)/mc L CERNER MILLENNIUM Monocyte % 7.4 4.0 - 13.0 % CERNER MILLENNIUM Monocyte Abs 0.6 0.2 - 1.0 x10(3)/mc L CERNER MILLENNIUM Eos % 0.9 0.0 - 7.0 % CERNER MILLENNIUM Eosinophils Abs 0.1 0.0 - 0.5 x10(3)/mc L CERNER MILLENNIUM Basophil % 0.1 0.0 - 2.0 % CERNER MILLENNIUM Baso Absolute 0.0 0.0 - 0.2 x10(3)/mc L CERNER [...] Immature Gran Absolute 0.01 0.00 - 0.05 x10(3)/mc L CERNER MILLENNIUM Blood specimen (specimen) 02/06/2014 3:35 AM EDT 02/06/2014 3:56 AM EDT Narrative Resulting Agency Comment Spec In Lab Steff Holland MD HEMATOLOGY ORDERABLE S CERNER KRYSTYNAENNIUM * (ABNORMAL) Hemogram (02/06/2014 3:35 AM EDT) White Blood Cell 8.1 4.0 - 10.0 x10(3)/mc L CERNER MILLENNIUM Red Blood Cell 3.60(L) 3.93 - 5.22 x10(6)/mc L CERNER MILLENNIUM Hemoglobin 10.4(L) 11.2 - 15.7 gm/dL CERNER MILLENNIUM Hematocrit 31.2(L) 34.0 - 45.0 % CERNER MILLENNIUM Mean Cell Volume 86.7 79.0 - 94.0 fL CERNER MILLENNIUM Mean Cell Hemoglobin 28.9 26.6 - 32.2 pg CERNER MILLENNIUM Mean Cell Hemoglobin Concentration 33.3 32.0 - 36.5 gm/dL CERNER MILLENNIUM Platelet 164 145 - 370 x10(3)/mc L CERNER MILLENNIUM RDW Standard Deviation 45.3 35.0 - 46.0 fL CERNER MILLENNIUM RDW coefficient of variation 14.3 10.9 - 14.4 % CERNER MILLENNIUM Mean Platelet Volume 9.8 9.0 - 12.0 fL CERNER MILLENNIUM Blood specimen (specimen) 02/06/2014 3:35 AM EDT 02/06/2014 3:56 AM EDT Narrative Resulting Agency Comment Spec In Lab Authorizing Provider Result Van Holland MD HEMATOLOGY ORDERABLE S Performing Organization Address [facility] de Phone Number NOLA AGUILA * (ABNORMAL) Prothrombin Time (02/06/2014 3:35 AM EDT) Prothrombin Time 17.8(H) 12.5 - 15.5 sec CERNER MILLENNIUM Comment: [facility] Transfusion Committee Guidelines: INR less than 2.0, PTT less than OR equal to 43.5 seconds, or Fibrinogen greater than or equal to 100 mg/dl indicate adequate procoagulant activity for hemostasis in patients without underlying bleeding disorders. International Normalization Ratio 1.4(H) 0.9 - 1.1 CERNER MILLENNIUM Blood specimen (specimen) 02/06/2014 3:35 AM EDT 02/06/2014 3:56 AM EDT Narrative Resulting Agency Comment Spec In Lab Authorizing Provider Result Van Holland MD HEMATOLOGY ORDERABLE S Performing Organization Address [facility] de Phone Number NOLA AGUILA * (ABNORMAL) Basic Metabolic Panel (non-fasting) (02/06/2014 3:35 AM EDT) Glucose 121 60 - 199 mg/dL CERNER MILLENNIUM Comment:Diabetes: >=200 mg/d L plus symptoms Blood Urea Nitrogen 7(L) 8 - 18 mg/dL CERNER MILLENNIUM Creatinine 0.63(L) 0.70 - 1.20 mg/dL CERNER MILLENNIUM Comment: Please note that the pediatric reference intervals supplied above were not validated at [facility]. Results from pediatric patients should be interpreted [...] 103 98 - 107 mmol/L CERNER MILLENNIUM Carbon Dioxide 27 22 - 31 mmol/L CERNER MILLENNIUM Anion Gap 10 5 - 15 mmol/L CERNER MILLENNIUM Calcium 8.9 8.5 - 10.5 mg/dL CERNER MILLENNIUM Est [...] the following links into your internet browser. [email or web address] Blood specimen (specimen) 02/06/2014 3:35 AM EDT 02/06/2014 3:56 AM EDT Narrative Resulting Agency Comment Spec In Lab Steff Holland MD CHEMISTRY ORDERABLES CERNER MILLENNIUM * (ABNORMAL) Differential, Automated (02/05/2014 3:21 AM EDT) Neutrophil % 73.4(H) 34.0 - 71.0 % CERNER MILLENNIUM Neutrophil Absolute 4.18 1.50 - 6.30 x10(3)/mc L CERNER MILLENNIUM Lymph % 18.6(L) 19.0 - 53.0 % CERNER MILLENNIUM Lymphocytes Abs 1.1 1.0 - 3.6 x10(3)/mc L CERNER MILLENNIUM Monocyte % 6.9 4.0 - 13.0 % CERNER MILLENNIUM Monocyte Abs 0.4 0.2 - 1.0 x10(3)/mc L CERNER MILLENNIUM Eos % 0.9 0.0 - 7.0 % CERNER MILLENNIUM Eosinophils Abs 0.0 0.0 - 0.5 x10(3)/mc L CERNER MILLENNIUM Basophil % 0.0 0.0 - 2.0 % CERNER MILLENNIUM Baso Absolute 0.0 0.0 - 0.2 x10(3)/mc L CERNER [...] Immature Gran Absolute 0.01 0.00 - 0.05 x10(3)/mc L CERNER MILLENNIUM Blood specimen (specimen) 02/05/2014 3:21 AM EDT 02/05/2014 3:40 AM EDT Narrative Resulting Agency Comment Spec In Lab Steff Holland MD HEMATOLOGY ORDERABLE S CERNER MILLENNIUM * (ABNORMAL) Hemogram (02/05/2014 3:21 AM EDT) White Blood Cell 5.7 4.0 - 10.0 x10(3)/mc L CERNER MILLENNIUM Red Blood Cell 3.53(L) 3.93 - 5.22 x10(6)/mc L CERNER MILLENNIUM Hemoglobin 10.1(L) 11.2 - 15.7 gm/dL CERNER MILLENNIUM Hematocrit 30.5(L) 34.0 - 45.0 % CERNER MILLENNIUM Mean Cell Volume 86.4 79.0 - 94.0 fL CERNER MILLENNIUM Mean Cell Hemoglobin 28.6 26.6 - 32.2 pg CERNER MILLENNIUM Mean Cell Hemoglobin Concentration 33.1 32.0 - 36.5 gm/dL CERNER MILLENNIUM Platelet 154 145 - 370 x10(3)/mc L CERNER MILLENNIUM RDW Standard Deviation 45.6 35.0 - 46.0 fL CERNER MILLENNIUM RDW coefficient of variation 14.5(H) 10.9 - 14.4 % CERNER MILLENNIUM Mean Platelet Volume 9.5 9.0 - 12.0 fL CERNER MILLENNIUM Blood specimen (specimen) 02/05/2014 3:21 AM EDT 02/05/2014 3:40 AM EDT Narrative Resulting Agency Comment Spec In Lab Authorizing Provider Result Van Holland MD HEMATOLOGY ORDERABLE S Performing Organization Address [facility] de Phone Number NOLA AGUILA * Prothrombin Time (02/05/2014 3:21 AM EDT) Prothrombin Time 14.6 12.5 - 15.5 sec CERNER MILLENNIUM Comment: [facility] Transfusion Committee Guidelines: INR less than 2.0, PTT less than OR equal to 43.5 seconds, or Fibrinogen greater than or equal to 100 mg/dl indicate adequate procoagulant activity for hemostasis in patients without underlying bleeding disorders. International Normalization Ratio 1.1 0.9 - 1.1 CERNER MILLENNIUM Blood specimen (specimen) 02/05/2014 3:21 AM EDT 02/05/2014 3:40 AM EDT Narrative Resulting Agency Comment Spec In Lab Authorizing Provider Result Van Holland MD HEMATOLOGY ORDERABLE S Performing Organization Address [facility] de Phone Number NOLA AGUILA * (ABNORMAL) Basic Metabolic Panel (non-fasting) (02/05/2014 3:21 AM EDT) Glucose 122 60 - 199 mg/dL CERNER MILLENNIUM Comment:Diabetes: >=200 mg/d L plus symptoms Blood Urea Nitrogen 9 8 - 18 mg/dL CERNER MILLENNIUM Creatinine 0.69(L) 0.70 - 1.20 mg/dL CERNER MILLENNIUM Comment: Please note that the pediatric reference intervals supplied above were not validated at [facility]. Results from pediatric patients should be interpreted [...] 106 98 - 107 mmol/L CERNER MILLENNIUM Carbon Dioxide 25 22 - 31 mmol/L CERNER MILLENNIUM Anion Gap 10 5 - 15 mmol/L CERNER MILLENNIUM Calcium 8.3(L) 8.5 - 10.5 mg/dL CERNER MILLENNIUM Comment:result rechecked-AFP Est Glomerular Filtration Rate >60 >=60 CERNER [...] the following links into your internet browser. [email or web address] Blood specimen (specimen) 02/05/2014 3:21 AM EDT 02/05/2014 3:40 AM EDT Narrative Resulting Agency Comment Spec In Lab Steff Holland MD CHEMISTRY ORDERABLES NOLA AGUILA * Surgical Pathology Report (02/04/2014 1:10 PM EDT) Final Diagnosis ? [facility] ? Provider: ?? STEFF HOLLAND ? Pt. Name: ?? ALYSSA RIVAS ? Acc #: ?[id number] ?Pt. ? Col Date: ?? 02/04/2014 ? /Sex: ?1945,(68 ? years),Female ? Rec Date: ?? 02/04/2014 ? LOC: ?3WST ? SURGICAL PATHOLOGY ? ---Pathologic Diagnosis--- ? A - Left femoral head, osteoarthitis. ?Gross surgical pathology examination. ? CR-0 ? 02/04/14 ? SHB ? 02/05/14 Verified by: ? Aramis VALENCIA, Kenya Higginbotham. ? Pathologist ? (Electronic Signature) ? The [...] ? AMBER ? Clinical Diagnosis: ? Same 02/05/2014 8:33 AM EDT [facility] BONE STRUCTURE / Unknown 02/04/2014 1:10 PM EDT 02/04/2014 1:10 PM EDT Narrative Authorizing Provider Result Van Holland MD PATHOLOGY/CYTOLOGY O MARCIA Performing Organization Address City/[facility]/ZIP Co de Phone Number MONISHAMITCHELL GREENWOODCRISTOBAL [facility] [place] [address] * Specimen to Pathology (surgical or derm) (02/04/2014 1:10 PM EDT) AP Specimen 02/04/2014 1:10 PM EDT 02/04/2014 1:10 PM EDT Narrative NOLA AGUILA - 02/04/2014 1:10 PM EDT Specimen requisition ordered. ??Separate Pathology report to follow Authorizing Provider Result Van Holland MD PATHOLOGY/CYTOLOGY Lenora KENNEDY Performing Organization Address City/[facility] Co de Phone Number NOLA AGUILA [...] 0.05 % cream 1 Application (CANCELED) 1 .Application , Topical, 2 TIMES DAILY, First dose [...] 220 mcg/actuation 2 puff twice daily, Routine 2204 (Given - Provider: Sofia Mills RN) 0835 (Given - Provider: Marcelina Liu, DALILA)203 (Given - Provider: Lindsey Murphy, DALILA) 0900 (Given - Provider: Ladonna Daugherty RN) polyethylene glycol (MIRALAX) packet 17 g 17 g, Oral, 2 TIMES DAILY, First dose on Sun02/04/14 at 2100, Until Discontinued, Administer if needed per patient's routine or if no bowel movement within 48 hours, Routine 2201 (Given - Provider: Sofia Mills RN) 0831 (Not Given - Provider: Marcelina Liu RN - Reason: Patient/family refused)2099 (Not Given - Provider: Lindsey Murphy RN - Reason: Patient/family refused) 0900 (Not Given - Provider: Ladonna Daugherty RN - Reason: Patient/family refused) prochlorperazine (COMPAZINE) tablet 10 mg (COMPLETED) 10 mg, Oral, ONCE, 1 dose, On Sun02/05/14 at 1500, Maximum dose: 50 mg / 24 hrs, Routine 1503 (Given - Provider: Miryam Saldivar RN) senna-docusate (PERICOLACE) 8.6-50 mg per tablet 1-4 tablet 1-4 tablet, Oral, 2 TIMES DAILY, First dose on Sun02/04/14 at 2100, Until Discontinued, Start with 1 tablet or liquid equivalent orally twice daily and titrate up to achieve: 1. One bowel movement at least every 48 hours, AND 2. Without straining, Routine 2201 (Given - Provider: Sofia K Mills, RN) 0831 (Not Given - Provider: Marcelina Liu RN - Reason: Patient/family refused)2036 (Given - Provider: Lindsey Murphy, DALILA) 0900 (Not Given - Provider: Ladonna Daugherty RN - Reason: Patient/family refused) sertraline (ZOLOFT) tablet [...] Ashly Dong RN - Comment: Done by SDS Nurse.) sodium chloride 0.9 % flush 5 mL (CANCELED) 5 mL, Intravenous, 2 TIMES DAILY, First dose on Sun02/04/14 at 2100, Until Discontinued, Routine 2206 (Given - Provider: Sofia Mills RN) 0835 (Given - Provider: Marcelina Liu RN)2039 (Given - Provider: Lidnsey Murphy, DALILA) 0848 (Given - Provider: Ladonan Daugherty, DALILA) tranexamic acid (CYKLOKAPRON) 1,060 mg [...] 1238 (New Bag - Provider: Kingsley Degroot, PROTEIN CHEMIST) warfarin (COUMADIN) tablet 5 mg (COMPLETED) 5 [...] 02/04/2014 02/05/2014 02/06/2014 HYDROmorphone (DILAUDID) 1 mg/mL EDUCATIONAL MANAGER 30 mL (CANCELED) Intravenous, EDUCATIONAL MANAGER ONLY, Starting on Sun02/04/14 at 1515, [...] pain not relieved in 30-60 minutes., Routine 0605 (Given - Provider: Sofia Mills RN)1009 (See Alternative - Provider: Marcelina Liu RN)163 (See Alternative - Provider: Marcelina Liu RN)2036 (See Alternative - Provider: Lindsey Murphy RN) 0032 (See Alternative - Provider: Lindsey Murphy RN)0523 [...] rest)2036 (Given - Provider: Lindsey Murphy RN) 0032 (Given - Provider: Lindsey Murphy RN)0523 (Given - Provider: Lindsey Murphy, RN)1155 (Given - Provider: Ladonna Daugherty RN) ondansetron (ZOFRAN) injection 4 mg (CANCELED) 4 mg, Intravenous, EVERY 30 MIN PRN, Starting on Sun02/04/14 at 1402, Until Sun02/04/14 at 1850, Nausea, May repeat 4 mg once in 30 minutes. Consider prochlorperazine if ineffective., PACU Recovery 1813 (Given - Provider: Ashly Dogn, DALILA) ondansetron (ZOFRAN) tablet 4 mg (CANCELED)(Linked Group [...] Unit) documented in this encounter Care Teams Cylinder Head Assembler Relationship Specialty Start Date End Date Nirav Turner MD [address] [place] [address] PCP - General 06/07/10 03/24/18 documented as of this encounter
--- OUTSIDE RECORDS SUMMARY | 2024-05-29 16:54 | XMS_ITS | Encounter Summary ---
[place] [address] Care Team Providers Care Medicaid Specialist Name Role Phone Jamarcus Rodriguez MD Primary Care Provider [phone] Encounter Details Date Type Department Care Team (Latest Contact Info) Description 02/16/2014 Anti-Coag [place]phone [place] [phone] Julio Rader RN Status post right hip [...] Results * (ABNORMAL) External Lab Results (02/16/2014) INR, POC 2.1(Regulatory Specialist al Lab) 0.9 - 1.1 Comment:[facility] [place] Historical Provider CHEMISTRY ORDERAB LES documented in this encounter Visit Diagnoses Diagnosis Status post right hip replacement Hip joint replacement by other means documented in this encounter Care Teams Medicaid Specialist Relationship Specialty Start Date End Date Jamarcus Rodriguez MD [address] [place] [address] PCP - General 06/07/10 03/24/18 documented as of this encounter
--- OUTSIDE RECORDS SUMMARY | 2024-05-29 16:54 | XMS_ITS | Encounter Summary ---
[place] [address] Care Team Providers Care Lunchroom Mother Name Role Phone Jamarcus Rodriguez MD Primary Care Provider [phone] Encounter Details Date Type Department Care Team (Latest Contact Info) Description 02/12/2014 Anti-Coag Telephone Visit [place] [phone] Marley Tom, RN Status post right hip [...] Therapeutic Range: 2.0-3.0 INR: 2.1 Drawn by: [facility] Patient states that she was instructed [...] Results * (ABNORMAL) External Lab Results (02/12/2014) INR, POC 2.1(Control Cabinet Assembler al Lab) 0.9 - 1.1 Comment:Greg [facility] 02/12/2014 Historical Provider CHEMISTRY ORDERAB LES documented in this encounter Visit Diagnoses Diagnosis Status post right hip replacement Hip joint replacement by other means documented in this encounter Care Teams Lunchroom Mother Relationship Specialty Start Date End Date Jamarcus Rodriguez MD [address] [place] [address] PCP - General 06/07/10 03/24/18 documented as of this encounter
--- OUTSIDE RECORDS SUMMARY | 2024-05-29 16:54 | XMS_ITS | Encounter Summary ---
Author Organization [facility] [place] [address] Care Team Providers Care Safety Glass Installer Name Role Phone Ulices Baylee Mayorga APRN Primary Care Provider [phone] Reason for Visit * Reason Comments Follow-up Right hip pain incre ased Encounter Details Date Type Department Care Team (Late st Contact Info) Description 03/28/2018 10:30 AM EDT Office [place] [phone] Noemi Hudson MD [facility] [place] [address] Prosthetic hip implant failure, initial encounter; Pain [...] metal. Questionnaire Responses: [facility] Surgical Postop Visit 03/27/2018 PROMIS-10 [...] Results * APTT (03/28/2018 1:08 PM EDT) Partial Thromboplastin Time 29 25 - [address] [facility] Comment: The PTT is NOT appropriate for heparin monitoring. Use the Anti-Xa level for heparin monitoring (HEP UFH) or LMWH monitoring (HEP LMW). A PTT less than 37 seconds generally indicates adequate hemostasis. Blood specimen (specimen) 03/28/2018 1:08 PM EDT 03/28/2018 1:36 PM EDT Narrative Resulting Agency Comment Spec In Lab Noemi Hudson MD HEMATOLOGY ORDERABL ES [facility] [place] [address] * Prothrombin Time (03/28/2018 1:08 PM EDT) Prothrombin Time 11.1 9.4 - 12.[address] [facility] International Normalization Ratio 1.0 [facility] Comment: An INR <2.0 indicates [...] Lab Noemi Hudson MD HEMATOLOGY ORDERABL ES [facility] [place] [address] * (ABNORMAL) Basic Metabolic Panel (non-fasting) (03/28/2018 1:08 PM EDT) Pathologist [facility] Glucose 98 65 - 199 mg/dL [facility] Comment:Diabetes: >=200 mg/d L plus symptoms Blood Urea Nitrogen 17 8 - 18 mg/dL [facility] Creatinine 0.83 0.70 - 1.20 mg/dL [facility] Sodium 141 135 - 145 mmol/L [facility] Potassium 4.0 3.5 - 5.0 mmol/L [facility] Comment: Please note: ??Patients with WBC >100,000 may have falsely elevated Potassium levels. ??For accurate Potassium quantification in these patients send serum separator tube (gold top) for subsequent determinations. ??Contact the Clinical Chemistry Laboratory if there are any questions. Chloride 103 98 - 107 mmol/L [facility] Carbon Dioxide 22 22 - 31 mmol/L [facility] Anion Gap 16(H) 5 - 15 mmol/L [facility] Calcium 9.4 8.5 - 10.5 mg/dL [facility] Est Glomerular Filtration Rate 71 >=60 mL/min/1. 73 m?? [facility] Comment: The eGFR was calculated using the CKD-EPI equation. As with all creatinine based estimates of kidney function, eGFR values calculated with the CKD-EPI equation are not accurate in patients with acute kidney failure, extremes of body mass or the acutely ill. http://SummuS Render/[facility] TULSAnkf eGFR 83 >=60 mL/min/1. 73 m?? [facility] Comment: The eGFR was calculated using the CKD-EPI equation. As with all creatinine based estimates of kidney function, eGFR values calculated with the CKD-EPI equation are not accurate in patients with acute kidney failure, extremes of body mass or the acutely ill. http://SummuS Render/DHMCnkf Blood specimen (specimen) 03/28/2018 1:08 PM EDT 03/28/2018 1:36 PM EDT Narrative Resulting Agency Comment Spec In Lab Noemi Hudson MD CHEMISTRY ORDERABLE S Performing Organization Address City/State/[facility] Co de Phone Number [facility] [place] [phone] documented in this encounter Visit Diagnoses Diagnosis Prosthetic hip implant failure, initial encounter Pain of right lower extremity Status post right hip replacement, Dr. Morales 2008 Hip joint replacement by other means documented in this encounter Care Teams Safety Glass Installer Relationship Specialty Start Date End Date Baylee Elena APRN PCP - General Family Medicine 03/25/18 03/01/22 documented as of this encounter
--- OUTSIDE RECORDS SUMMARY | 2024-05-29 16:54 | XMS_ITS | Encounter Summary ---
Author Organization [facility] Address [address] [facility] [place] [address] Care Team Providers Care Farm Crops Teacher Name Role Phone Jamarcus Rodriguez MD Primary Care Provider [phone] Encounter Details Date Type Department Care Team (Late st Contact Info) Description 02/02/2014 11:40 AM EDT - 02/02/2014 11:59 PM EDT Hospital Encounter XRay at [address] [place] [phone] Pain in limb Social History Tobacco Use [...] limb documented in this encounter Care Teams Farm Crops Teacher Relationship Specialty Start Date End Date Jamarcus Rodriguez MD [address] [place] [address] PCP - General 06/07/10 03/24/18 documented as of this encounter
--- OUTSIDE RECORDS SUMMARY | 2024-05-29 16:54 | XMS_ITS | Encounter Summary ---
Author Organization [facility] Address [facility] [place] [address] Care Team Providers Care Victim Advocate Name Role Phone Ulices Baylee Mayorga APRN Primary Care Provider [phone] Encounter Details Date Type Department Care Team (Latest Contact Info) Description 03/28/2018 9:13 AM EDT - 03/28/2018 11:59 PM EDT Hospital Encounter XRay at [address] [place] [address] Noemi Hudson MD [facility] [place] [address] History of hip replacement, total, bilateral; Right [...] right hip. 10:15 AM Noemi Hudson MD IMWilliam DX ORDERABLES documented in this encounter Visit Diagnoses Diagnosis History of hip replacement, total, bilateral Right hip pain Pain in joint, pelvic region and thigh documented in this encounter Care Teams Victim Advocate Relationship Specialty Start Date End Date Baylee Elena APRN PCP - General Family Medicine 03/25/18 03/01/22 documented as of this encounter
--- OUTSIDE RECORDS SUMMARY | 2024-05-29 16:54 | XMS_ITS | Encounter Summary ---
Author Organization [facility] [place] [address] Care Team Providers Care Surgery Consultant Name Role Phone Nirav Turner MD Primary Care Provider Reason for Referral * Consultation (Routine) - Closed by system - Referral Specialty Diagnoses / Procedures Referred By Contac t Referred To Contact Orthopaedic Surgery Diagnoses Status post right hip replacement Breann Ochoa PA [facility] [place] [address] Referral ID Status Reason Start Date Expiration Date Visits Requested Visits Authorized [id number] Closed by system - Referral Assume Subset of Care 02/06/2014 08/05/2014 1 1 Encounter Details Date Type Department Care Team (Latest Contact Info) Description 02/04/2014 10:11 AM EDT - 02/06/2014 2:24 PM EDT Hospital Encounter [address] [place] [phone] Steff Holland MD [place] [address] Pain in limb; OA (osteoarthritis); 02/04 Dr. Holland Left Anterior AMBER; Status post [...] The INR should be reported to the [facility] Ortho clinic at [phone], and you will be informed of any [...] bowel movement. You can also take an uuvh-cbk-gbwipfr medication, miralax if needed to combat constipation. [...] 1. You will have followup appointments at [facility] as indicated in Future Appointment and Orders. Youwill have an xray prior to those appointments so please come to Radiology, desk 3T, 1 hour BEFORE your appointment for those x- rays. (plan to arive at 9:30 am for x-rays) Future Appointments Date Time [facility] Department [place] 03/11/2014 10:30 AM Betty Dong APRN [facility] If you have questions or concerns: [...] home with family. Discharge summary faxed to [facility]. LADONNA DAUGHERTY RN * Chad Heath PTA [...] Rehabilitation Department Chad Heath PTA Pager # [phone] * Frandy Hooper - 02/06/2014 6:02 AM [...] on chronically, no bridging Pain control: d/c TURN OPERATOR, oral pain medications D/c OSMEL levine Discharge [...] s/p Left Anterior Approach AMBER Surgery: 02/04/2014 [id number] Procedure(s) (LRB): @TOTAL HIP ARTHROPLASTY, ANTERIOR APPROACH [...] 5:09 PM EDT 1700- Pt. Instructed about TURN OPERATOR. * Ashly Dong RN - 02/04/2014 3:54 [...] documented in this encounter Procedure Notes * ProviderJj - 02/07/2014 2:36 PM EDTAssociated Order(s): SCAN DOC: IMPLANTABLE DEVICES documented in this encounter Miscellaneous Notes * Op Note - Steff Holland MD - 02/12/2014 8:19 AM EDT Surgery Start Time: 1303 Surgery Stop Time: 3 Date: February 04, 2014 Surgeon: Steff Holland MD Die Try Out Worker Stamping: Frandy Hooper MD Anesthesia: GET Pre-operative diagnosis: Left hip osteoarthritis Post-operative diagnosis: Same Surgical Procedure Performed: Injection left hip with 10 cc marcaine 0.25% with epi, into skin and subcutaneous tissues Left total hip arthroplasty, anterior Hueter approach with [place] table Left hip intraoperative radiologic examination Components Used: Depuy Corail stem, size 11, standard Duarte cup, 50 mm, solid 32 mm ID, [...] wasperformed. Patient was positioned supine on the [place] table, both feet and ankles were padded [...] liner was placed and impacted according to vehicle care specialist's instructions. Any impinging osteophytes were removed. The [...] and laterally. At the same time, the web production assistant leaned against the thigh to optimize [...] Implant Name Type Inv. Item Serial No. Porcelain Enameler Lot No. LRB No. Used Action CUP,HIP,ACETB,GRPTN,100,50MM ([id number]) (AUTOREQ) - [id number] IMPLANTS CUP,HIP,ACETB,GRPTN,100,50MM ([id number]) (AUTOREQ) [id number] Left 1 Implanted INSER,ALTRX,NT,35S73AP ([id number]) (AUTOREQ) - [id number] IMPLANTS INSER,ALTRX,NT,32X14QC ([id number]) (AUTOREQ) [id number] Left 1 Implanted STEM,CRL2,STD,SZ11 ([id number]) (AUTOREQ) - [id number] IMPLANTS STEM,CRL2,STD,SZ11 ([id number]) (AUTOREQ) [id number] Left 1 Implanted BALL,ATC,BRN,+5MM,32MM ([id number]) (AUTOREQ) - [id number] IMPLANTS BALL,ATC,BRN,+5MM,32MM ([id number]) (AUTOREQ) [id number] Left 1 Implanted * OR Attestation - [...] PM EDT Discharge Summary Patient Name: Alyssa BlandObed Patient Age: 68 y.o. Language: Syriac Race: White Ethnicity: Not nor Admit date: 02/04/2014 Discharge date and time: 02/06/2014 Attending Physician: Steff Holland MD Discharge Physician: Steff Holland MD Follow-up Recommendations for Providers: Please see patient discharge instructions for additional details. Inpatient Provider Contact Information: Steff Holland MD Joints: [phone] After hours and weekends, call [facility] Php Website Developer, , and have Orthopedic resident paged. Discharge [...] an outside provider Mikael Salgado D.O. in [place] after she did experience increased left hip pain after shoveling 3 mm months. At that time, The aforementioned Orthopaedic provider did order a left hip MRI scan revealed a cam lesion moderate severe degenerative joint disease. She was advised to seek consultation for possible left hip arthroplasty. She does split her time between [place] and [place] to care for her aging parents essentially spending ~ 6 months in [place] and [place]. She describes her left hip pain as moderate to severe with difficulty putting her shoes and socks on. She does use a cane for assistance and bgpe-pio-yrrnspr anti-inflammatories. She is just about to start [...] Rate: [67-92] Blood Pressure BP: 140/59 mmHg @oflhxkl37@ Respiratory Rate Resp: 16 Resp: [16] SpO2 SpO2: 95 % @icdktzzv42@ Art BP BP (Arterial Line): -- Functional [...] mg 02/05 POD 1 1.1 5 mg 7/ D/C POD 2 1.4 5 mg Anti-coagulation [...] The INR should be reported to the [facility] Ortho clinic at [phone], and you will be informed of any [...] bowel movement. You can also take an csjj-lir-djlpxul medication, miralax if needed to combat constipation. [...] 1. You will have followup appointments at [facility] as indicated in Future Appointment and Orders. Youwill have an xray prior to those appointments so please come to Radiology, desk 3T, 1 hour BEFORE your appointment for those x- rays. (plan to arive at 9:30 am for x-rays) Future Appointments Date Time Provider Department Center 03/11/2014 10:30 AM Betty Dong APRN [facility] If you have questions or concerns: Sunday through Sunday, 8 AM- 5 PM, please call Dr. Holland's office at . If it is after 5 PM or on the weekend, please call and ask for orthopedic resident on-call to be paged. Future Appointments and Orders Future Appointments: Provider: Department: Dept Phone: Center: 03/11/2014 10:30 AM Betty Dong APRN Orthopaedics [phone] [facility] Joint Appt Questionnaire [facility]opaedics [phone] [facility] Future Orders Please Complete By Expires Referral for Anticoagulation Monitoring [YTA827 Custom] Process Instructions: If no progress note charted, please enter Clinical details in comments. Scheduling Instructions: Comments: Questions: Responses: My question or request is: pt on coumadin for 28 days after surgery.INR 1.4 on d/c. vna to test INRand send results Risk Factors: Responsible Group [facility] ANTICOAG Next due INR 02/07/2014 INR Goal 2.0-3.0 Target End Date 03/04/2014 Referral to Home Health - at DISCHARGE [CUX0474 CPT(R)] Process Instructions: Scheduling Instructions: Comments: DOCUMENTATION FOR VNA SERVICES Alyssa Burnham Discharge to own home: [address] [place] [phone] (home) Realtime Court Reporter's Name: Self In discussion with the attending physician, it is certified that this patient is under their care and that they, or a nurse practitioner, clinical nurse specialist or physician's web production assistant who is working directly with them, [...] for services as follows: Home Health Agency: [facility] PHONE: [phone] FAX: [phone] Home care orders for Total Hip Replacements: [...] PT/INR results to be reported as follows: [facility] Orthopedic anticoagulation (Coumadin) clinic @ ; 2. [...] Questions: Responses: Agency name and contact information [facility] Patient location post discharge Home What services are requested Registered Nurse Physical Therapy Start date 02/07/2014 Responsible MD post discharge contact info PCP/[facility] Orthopaedic Service Primary Care Provider: NIRAV TURNER MD [phone] * Plan of Care - Marcelina Liu [...] 4:45 PM EDT Office of Care Management/Clinical Catalogue Clerk (CRC)/Initial Assessment CRC Todd Matthew RN (pager [phone]) Patient: Alyssa Burnham : 1945 (68 y.o.) Home: [facility] [address]* LOS: 1 day Care reviewed with Dr. [...] directives: Received ?? Insurance coverage: Medicare AB, [employer] ?? Admission status: 02/04/14 IPI Order to Admit is appropriate and waiting to be signed by an attending provider; notified Dr. Steff Holland via email. ?? Anticipated barriers to discharge: None ?? Financial concerns: None ?? Identified patient/family concerns r/t discharge: None ?? Government Relations Manager referral indicated: No ?? Baseline functional status/mobility: [...] AM Betty Dong APRN [facility] Plan: Care Management will continue to monitor progress, follow for continuity of care, and assist with discharge planning. * Initial Assessments - Good Orozco OT - 02/05/2014 1:08 PM EDT Occupational Therapy Evaluation Patient profile: Alyssa Burnham is a 68 y.o. female patient [...] APPROACH performed by Steff Holland MD at [facility] OR Social History: Patient lives alone, however girlfriend will be staying with her for a week. Home Setup: one level, walk in (3 inch step) shower DME: shower chair, higher toilet seat with arms, department supervisor, walker, cane Baseline ADL/Mobility: Independent with ADLS [...] eval Total timed interventions: 0 minutes Pager: [phone] GOOD OROZCO OT 02/05/2014 Occupational Therapy Rehabilitation [...] APPROACH performed by Steff Holland MD at [facility] Social History: Patient is but has a friend to stay with her at d/c. 1 step x 3 to enter. Ind amb SEAT MAKER Precautions/Special Considerations: WBAT L L/E, standard hip [...] treatment: 0 minutes zakiya FIELDS, PT Pager: [phone] * Plan of Care - Sofia Mills [...] Operative Note Patient Name: Alyssa Burnham : [id number] MR#: [id number] Case Date: 02/04/2014 Surgeon: Surgeon(s) and Role: [...] MD HEMATOLOGY ORDERABLE S Performing Organization Address [facility] Co de Phone Number NOLA LAMBERTIUM * (ABNORMAL) Prothrombin Time (02/06/2014 3:35 AM EDT) Prothrombin Time 17.8(H) 12.5 - 15.5 sec [facility] Comment: [facility] Transfusion Committee Guidelines: INR less than 2.0, PTT less than OR equal to 43.5 seconds, or Fibrinogen greater than or equal to 100 mg/dl indicate adequate procoagulant activity for hemostasis in patients without underlying bleeding disorders. International Normalization Ratio 1.4(H) 0.9 - 1.1 [facility]OD[facility] Blood specimen (specimen) 02/06/2014 3:35 AM EDT 02/06/2014 3:56 AM EDT Narrative Resulting Agency Comment Spec In Lab Authorizing Provider Result Van Holland MD HEMATOLOGY ORDERABLE S Performing Organization Address City/[facility]/ZIP Co de Phone Number NOLA LAMBERTIUM * (ABNORMAL) Basic Metabolic Panel (non-fasting) (02/06/2014 3:35 AM EDT) Glucose 121 60 - 199 mg/dL [facility] KRYSTYNAENNIUM Comment:Diabetes: >=200 mg/d L plus symptoms Blood Urea Nitrogen 7(L) 8 - 18 mg/dL [facility] Creatinine 0.63(L) 0.70 - 1.20 mg/dL CERNER MILLENNIUM Comment: Please note that the pediatric reference intervals supplied above were not validated at [facility]. Results from pediatric patients should be interpreted [...] the following links into your internet browser. [email or web address] Blood specimen (specimen) 02/06/2014 3:35 AM EDT [...] Steff Holland MD HEMATOLOGY ORDERABLE S [facility] GREENWOODENNIUM * (ABNORMAL) Hemogram (02/05/2014 3:21 AM [...] MD HEMATOLOGY ORDERABLE S Performing Organization Address [facility] de Phone Number NLOA LAMBERTIUM * Prothrombin Time (02/05/2014 3:21 AM EDT) Prothrombin Time 14.6 12.5 - 15.5 sec [facility] MILLENNIUM Comment: [facility] Transfusion Committee Guidelines: INR less [...] MD HEMATOLOGY ORDERABLE S Performing Organization Address [facility] Co de Phone Number NOLA LAMBERTIUM * (ABNORMAL) Basic Metabolic Panel (non-fasting) (02/05/2014 3:21 AM EDT) Glucose 122 60 - 199 mg/dL [facility] Comment:Diabetes: >=200 mg/d L plus symptoms Blood Urea Nitrogen 9 8 - 18 mg/dL [facility] Creatinine 0.69(L) 0.70 - 1.20 mg/dL [facility] Comment: Please note that the pediatric reference intervals supplied above were not validated at [facility]. Results from pediatric patients should be interpreted [...] the following links into your internet browser. [email or web address] Blood specimen (specimen) 02/05/2014 3:21 AM EDT 02/05/2014 3:40 AM EDT Narrative Resulting Agency Comment Spec In Lab Steff Holland MD CHEMISTRY ORDERABLES [facility] LAMBERTIUM * Surgical Pathology Report (02/04/2014 1:10 PM EDT) Final Diagnosis ? [facility] ? Provider: ?? GAYLA, STEFF M ? Pt. Name: ?? LUKE-JOHANA Mariaelena, ALYSSA Hanna ? Acc #: ?[id number] ?Pt. ? Col Date: ?? 02/04/2014 ? [...] Diagnosis: ? Same 02/05/2014 8:33 AM EDT [facility] BONE STRUCTURE / Unknown 02/04/2014 1:10 PM EDT 02/04/2014 1:10 PM EDT Narrative Authorizing Provider Result Van Holland MD PATHOLOGY/CYTOLOGY O MARCIA Performing Organization Address [facility] Co de Phone Number NOLA AGUILA [facility] [place] [address] * Specimen to Pathology (surgical or derm) (02/04/2014 1:10 PM EDT) AP Specimen 02/04/2014 1:10 PM EDT 02/04/2014 1:10 PM EDT Narrative NOLA AGUILA - 02/04/2014 1:10 PM EDT Specimen requisition ordered. ??Separate Pathology report to follow Authorizing Provider Result Van Holland MD PATHOLOGY/CYTOLOGY O MARCIA Performing Organization Address [facility] Co de Phone Number NOLA [employer] documented in this encounter Visit Diagnoses Diagnosis [...] (TEMOVATE) 0.05 % cream 1 Application 1 .Application , Topical, 2 TIMES DAILY, First dose on Sun02/04/14 at 2100, Until Discontinued Given 02/04/2014 10:04 PM EDT 1 .Application cyanocobalamin (vitamin B-12) tablet 1,000 mcg 1,000 [...] EDT 300 mg HYDROmorphone (DILAUDID) 1 mg/mL TURN OPERATOR 30 mL Intravenous, TURN OPERATOR ONLY, Starting on Sun02/04/14 at 1515, Until [...] Provider: Marcelina Liu RN)2039 (Given - Provider: Lindsey Murphy, DALILA) 0848 [...] 1238 (New Bag - Provider: Kingsley Degroot, RADIO ANNOUNCER) warfarin (COUMADIN) tablet 5 mg (COMPLETED) 5 [...] 02/04/2014 02/05/2014 02/06/2014 HYDROmorphone (DILAUDID) 1 mg/mL TURN OPERATOR 30 mL (CANCELED) Intravenous, TURN OPERATOR ONLY, Starting on Sun02/04/14 at 1515, Until [...] PACU Recovery 1813 (Given - Provider: Ashly Dong, DALILA) ondansetron (ZOFRAN) tablet 4 mg (CANCELED)(Linked [...] Unit) documented in this encounter Care Teams Surgery Consultant Relationship Specialty Start Date End Date Nirav Turner MD [address] [place] [address] PCP - General 06/07/10 03/24/18 documented as of this encounter
--- OUTSIDE RECORDS SUMMARY | 2024-05-29 16:54 | XMS_ITS | Encounter Summary ---
[place] [address] Care Team Providers Care Hedis Analyst Name Role Phone Samnicholas Baylee Nicholas JORDAN Primary Care Provider [phone] Encounter Details Date Type Department Care Team (Latest Contact Info) Description 03/28/2018 12:40 PM EDT Clinical [place] [address] Prosthetic hip implant failure, initial [...] (Bezet) 425 ms MUSE SYSTEM Calculated P [place] 50 degrees MUSE SYSTEM Calculated R [place] 30 degrees MUSE SYSTEM Calculated T [place] 29 degrees MUSE SYSTEM INTERPRETATION Normal sinus [...] extremity documented in this encounter Care Teams Hedis Analyst Relationship Specialty Start Date End Date Baylee Elena APRN PCP - General Family Medicine 03/25/18 03/01/22 documented as of this encounter
--- OUTSIDE RECORDS SUMMARY | 2024-05-29 16:54 | XMS_ITS | Encounter Summary ---
[place] [address] Care Team Providers Care Content Strategy Lead Name Role Phone Jamarcus Rodriguez MD Primary Care Provider [phone] Reason for Visit * Reason Comments Other Encounter Details Date Type Department Care Team (Late st Contact Info) Description 01/13/2014 Telephone [place] [phone] Lance Holland MD [address] [place] [address] Social History Tobacco Use Types Packs/Day Years [...] on filedocumented in this encounter Care Teams Content Strategy Lead Relationship Specialty Start Date End Date Jamarcus Rodriguez MD [address] [place] [address] PCP - General 06/07/10 03/24/18 documented as of this encounter
--- OUTSIDE RECORDS SUMMARY | 2024-05-29 16:54 | XMS_ITS | Encounter Summary ---
Author Organization [facility] Address [facility] [place] [address] Care Team Providers Care Item Processor Name Role Phone Jamarcus Rodriguez MD Primary Care Provider [phone] Encounter Details Date Type Department Care Team (Late st Contact Info) Description 03/11/2014 9:37 AM EDT - 03/11/2014 11:59 PM EDT Hospital Encounter XRay at [address] [place] [id number] Pain in limb Social History Tobacco Use [...] AP radiograph of the pelvis. Procedure Note HeadKaushik MD - 03/11/2014 Examination PELVIS+LATERAL HIP/LEFT Clinical [...] limb documented in this encounter Care Teams Item Processor Relationship Specialty Start Date End Date Jamarcus Rodriguez MD [address] [place] [address] PCP - General 06/07/10 03/24/18 documented as of this encounter
--- OUTSIDE RECORDS SUMMARY | 2024-05-29 16:54 | XMS_ITS | Encounter Summary ---
[place] [address] Care Team Providers Care Tare Man Name Role Phone Jamarcus Rodriguez MD Primary Care Provider [phone] Reason for Visit * Reason Comments Left Hip Pain 02/04/2014 L THR ant eriot Encounter Details Date Type Department Care Team (Late st Contact Info) Description 05/06/2014 9:00 AM EDT Office [place] [phone] Betty Dong APRN [facility] [place] [address] 02/04 Dr. Holland Left Anterior AMBER (Primary [...] this encounter Progress Notes * Betty Dong, PLATING TANK OPERATOR APPRENTICE - 05/06/2014 9:45 AM EDT Subjective: Chief Complaint: Second planned post op for left hip AMBER Pertinent Surgical History: Date: February 04, 2014 Surgeon: Lance Holland MD Rn Transitional Care: Pre-operative diagnosis: Left hip osteoarthritis Surgical Procedure Performed: Injection left hip with 10 cc marcaine 0.25% with epi, into skin and subcutaneous tissues Left total hip arthroplasty, anterior Hueter approach with [place] table Left hip intraoperative radiologic examination Components Used: Depuy Corail stem, size 11, standard [place] cup, 50 mm, solid 32 mm ID, [...] She is getting ready to travel to [place] to care for her Parents. She is [...] Therapyfor post-operative rehabilitation and transition to a [facility] when she is ready. Full [...] thigh documented in this encounter Care Teams Tare Man Relationship Specialty Start Date End Date Jamarcus Rodriguez MD [address] [place] [address] PCP - General 06/07/10 03/24/18 documented as of this encounter
--- OUTSIDE RECORDS SUMMARY | 2024-05-29 16:54 | XMS_ITS | Encounter Summary ---
[place] [address] Care Team Providers Care Apartment Rental Clerk Name Role Phone Jamarcus Rodriguez MD Primary Care Provider [phone] Encounter Details Date Type Department Care Team (Late st Contact Info) Description 02/02/2014 8:30 AM EDT Office [place] [address] Social History Tobacco Use Types Packs/Day Years [...] on filedocumented in this encounter Care Teams Apartment Rental Clerk Relationship Specialty Start Date End Date Jamarcus Rodriguez MD [address] [place] [address] PCP - General 06/07/10 03/24/18 documented as of this encounter
--- OUTSIDE RECORDS SUMMARY | 2024-05-29 16:54 | XMS_ITS | Encounter Summary ---
[place] [address] Care Team Providers Care Immunology Specialist Name Role Phone Jamarcus Rodriguez MD Primary Care Provider [phone] Reason for Visit * Reason Onset Date Comments Reminder Appointment 12/22/2014 Encounter Details Date Type Department Care Team (Late st Contact Info) Description 12/22/2014 [place] [phone] [address] [place] [address] [place] [address] Reminder Appointment Social History Tobacco Use Types [...] Dr. Holland relocated his orthopaedic practice to [facility] in [place], [place]. You are on our list to schedule a re- evaluation your total joint replacement performed by Dr. Holland. If you choose to remain at [facility], we are more than happy to schedule this follow-up with one of our total joint associate providers at this time. If you choose to continue to follow with Dr. Holland, please call his office at [facility] in [place], [place] at [phone] and they would be happy to assist you. documented in this encounter Plan of Treatment Not on file documented as of this encounter Visit Diagnoses Not on filedocumented in this encounter Care Teams Immunology Specialist Relationship Specialty Start Date End Date Jamarcus Rodriguez MD [address] [place] [address] PCP - General 06/07/10 03/24/18 documented as of this encounter
--- OUTSIDE RECORDS SUMMARY | 2024-05-29 16:54 | XMS_ITS | Encounter Summary ---
Author Organization [facility] [place] [address] Care Team Providers Care Rn Teacher Name Role Phone Jamarcus Rodriguez MD Primary Care Provider [phone] Reason for Referral * Physical Therapy (Routine) - Complete - Patient Will Schedule External Appt Specialty Diagnoses / Procedures Referred By Calin t Referred To Contact Physical Therapy Diagnoses Primary osteoarthritis of left hip Status post hip replacement Betty Dong [facility] [place] [address] Referral ID Status Reason Start Date Expiration Date Visits Requested Visits Authorized [id number] Complete - Patient Will Schedule External Appt Evaluate and Treat 03/11/2014 09/07/2014 12 12 Reason for Visit * Reason Comments Left Hip Pain Left total hip arthr oplasty, anterior Encounter Details Date Type Department Care Team (Late st Contact Info) Description 03/11/2014 10:30 AM EDT Office [place] [address] Betty Dong [facility] [place] [address] Status post hip replacement (Primary Dx); 02/04 [...] this encounter Progress Notes * Betty Dong, MANPOWER DEVELOPMENT MANAGER - 03/11/2014 11:10 AM EDT Subjective: Chief Complaint: First global post op for left hip AMBER Pertinent Surgical History: Date: February 04, 2014 Surgeon: Lance Holland MD Distribution Lead: Pre-operative diagnosis: Left hip osteoarthritis Surgical Procedure Performed: Injection left hip with 10 cc marcaine 0.25% with epi, into skin and subcutaneous tissues Left total hip arthroplasty, anterior Hueter approach with [place] table Left hip intraoperative radiologic examination Components Used: Depuy Corail stem, size 11, standard [place] cup, 50 mm, solid 32 mm ID, [...] thigh documented in this encounter Care Teams Rn Teacher Relationship Specialty Start Date End Date Jamarcus Rodriguez MD [address] [place] [address] PCP - General 06/07/10 03/24/18 documented as of this encounter
--- OUTSIDE RECORDS SUMMARY | 2024-05-29 16:54 | XMS_ITS | Encounter Summary ---
[place] [address] Care Team Providers Care Magnaflux Operator Name Role Phone Ulices Baylee Mayorga APRN Primary Care Provider [phone] Encounter Details Date Type Department Care Team (Latest Contact Info) Description 03/28/2018 12:50 PM EDT Laboratory [place] [address] Prosthetic hip implant failure, initial [...] extremity TYPE AND SCREEN, SDP (FUTURE SURGERY, [facility] SAME DAY PROGRAM ONLY) [...] of right lower extremity BASIC METABOLIC PANEL Routine 03/28/2018 1:08 PM EDT Prosthetic hip implant failure, initial encounter Pain of right lower extremity documented in this encounter Results * Sedimentation rate (03/28/2018 1:08 PM EDT) Pathologist [facility] Sedimentation Rate Automated 11 0 - 20 mm/hr [facility] Blood specimen (specimen) Venous Draw / Unknown 03/28/2018 1:08 PM EDT 03/28/2018 1:36 PM EDT Narrative Resulting Agency Comment Spec In Lab Good AMES HEMATOLOGY ORDERABL ES [facility] [place] [address] * CRP, acute inflammation (03/28/2018 1:08 PM EDT) [facility] C-Reactive Protein 3.4 <=4.9 mg/L [facility] Blood specimen (specimen) Venous Draw / Unknown 03/28/2018 1:08 PM EDT 03/28/2018 1:40 PM EDT Narrative Resulting Agency Comment Spec In Lab Good AMES CHEMISTRY ORDERABLE S Performing Organization Address City/[facility]/ZIP Co de Phone Number [facility] [place] [address] * ABORH Recheck Status (03/28/2018 1:08 PM EDT) [facility] ABORH Type Recheck Completed [facility] Blood specimen (specimen) 03/28/2018 1:08 PM EDT 03/28/2018 1:37 PM EDT Narrative Resulting Agency Comment Spec In Lab Noemi Hudson MD BLOOD BANK LAB [place] CORMIER Performing Organization Address City/[facility]/ZIP Co de Phone Number [facility] [place] [address] * Differential, Automated (03/28/2018 1:08 PM EDT) [facility] Neutrophil % 70.6 % [facility] Neutrophil Absolute 4.50 1.70 - 6.10 x10(3)/[facility] Lymph % 20.4 % [facility] Lymphocytes Abs 1.3 0.9 - 3.2 x10(3)/[facility] Monocyte % 6.8 % [facility] Monocyte Abs 0.4 0.3 - 0.9 x10(3)/[facility] Eos % 1.6 % [facility] Eosinophils Abs 0.1 0.0 - 0.4 x10(3)/[facility] Basophil % 0.3 % [facility] Baso Absolute 0.0 0.0 - 0.1 x10(3)/[facility] Immature Gran % 0.30 % [facility] Comment: Immature granulocytes(IG's)percentage and absolute count will include metamyelocytes, myelocytes, and promyelocytes. Blood smears from CBCs yielding IG's will be scanned manually for concordance. If this scan disagrees with the automated IG or if promyelocytes are noted, a manual differential will be performed. Immature Gran Absolute 0.02 0.00 - 0.04 x10(3)/[facility] Blood specimen (specimen) 03/28/2018 1:08 PM EDT 03/28/2018 1:36 PM EDT Narrative Resulting Agency Comment Spec In Lab Noemi Hudson MD HEMATOLOGY ORDERABL ES [facility] [place] [address] * Hemogram (03/28/2018 1:08 PM EDT) White Blood Cell 6.4 4.0 - 9.5 x10(3)/[facility] Red Blood Cell 4.59 4.00 - 5.21 x10(6)/[facility] Hemoglobin 13.0 11.7 - 15.5 gm/dL [facility] Hematocrit 39.5 35.7 - 45.8 % [facility] Mean Cell Volume 86.1 82.6 - 94.4 fL [facility] Mean Cell Hemoglobin 28.3 27.1 - 32.0 pg [facility] Mean Cell Hemoglobin Concentration 32.9 31.7 - 35.0 gm/dL [facility] Platelet 213 145 - 357 x10(3)/[facility] RDW Standard Deviation 41.9 37.0 - 46.0 fL [facility] RDW coefficient of variation 13.3 11.5 - 14.1 % [facility] Mean Platelet Volume 9.7 7.6 - 12.9 fL [facility] NRBC% auto 0.0 % [facility] NRBC Absolute 0.000 0.000 - 0.000 x10(3)/mcL [facility] Blood specimen (specimen) 03/28/2018 1:08 PM EDT 03/28/2018 1:36 PM EDT Narrative Resulting Agency Comment Spec In Lab Noemi Hudson MD HEMATOLOGY ORDERABL ES Performing Organization Address [facility]/ZIP Co de Phone Number [facility] [place] [address] * Antibody screen (03/28/2018 1:08 PM EDT) Ab Screen Interp Negative [facility] Expires at [id number] on: 04/04/2018 [facility] Blood specimen (specimen) 03/28/2018 1:08 PM EDT 03/28/2018 1:37 PM EDT Narrative Resulting Agency Comment Spec In Lab Noemi Hudson MD BLOOD BANK LAB ORDE RABLES Performing Organization Address [facility]/ZIP Co de Phone Number [facility] [place] [address] * ABO/Rh Typing (03/28/2018 1:08 PM EDT) ABORH Type A Pos [facility] Blood specimen (specimen) 03/28/2018 1:08 PM EDT 03/28/2018 1:37 PM EDT Narrative Resulting Agency Comment Spec In Lab Noemi Hudson MD BLOOD BANK LAB ORDE RABKARL Performing Organization Address [facility]/ZIP Co de Phone Number [facility] [place] [address] * APTT (03/28/2018 1:08 PM EDT) Partial Thromboplastin Time 29 25 - 37 sec [facility] [...] MD HEMATOLOGY ORDERABL ES Performing Organization Address [facility] Phone Number [facility] [place] [address] * Prothrombin Time (03/28/2018 1:08 PM EDT) Prothrombin Time 11.1 9.4 - 12.5 sec [facility] International Normalization Ratio 1.0 [facility] Comment: An INR <2.0 [...] MD HEMATOLOGY ORDERABL ES Performing Organization Address [facility] Phone Number [facility] [place] [address] * (ABNORMAL) Basic Metabolic Panel (non-fasting) (03/28/2018 1:08 PM EDT) Glucose 98 65 - 199 mg/dL [facility] Comment:Diabetes: >=200 mg/d L plus symptoms Blood Urea Nitrogen 17 8 - 18 mg/dL [facility] [...] - 107 mmol/L [facility] Carbon Dioxide 22 22 - 31 mmol/L [facility] Anion Gap 16(H) 5 - 15 mmol/L [facility] Calcium 9.4 8.5 - 10.5 mg/dL [facility] Est Glomerular Filtration Rate 71 >=60 mL/min/1. 73 m?? [facility] Comment: The eGFR was calculated using the CKD-EPI equation. As with all creatinine based estimates of kidney function, eGFR values calculated with the CKD-EPI equation are not accurate in patients with acute kidney failure, extremes of body mass or the acutely ill. [email or web address]nkf eGFR 83 >=60 mL/min/1. 73 m?? [facility] Comment: The eGFR was calculated using the CKD-EPI equation. As with all creatinine based estimates of kidney function, eGFR values calculated with the CKD-EPI equation are not accurate in patients with acute kidney failure, extremes of body mass or the acutely ill. [email or web address] Blood specimen (specimen) 03/28/2018 1:08 PM EDT 03/28/2018 1:36 PM EDT Narrative Resulting Agency Comment Spec In Lab Noemi Hudson MD CHEMISTRY ORDERABLE S [facility] [place] [address] documented in this encounter Visit Diagnoses Diagnosis Prosthetic hip implant failure, initial encounter Pain of right lower extremity documented in this encounter Care Teams Magnaflux Operator Relationship Specialty Start Date End Date Baylee Elena APRN PCP - General Family Medicine 03/25/18 03/01/22 documented as of this encounter
--- OUTSIDE RECORDS SUMMARY | 2024-05-29 16:54 | XMS_ITS | Encounter Summary ---
[place] [address] Care Team Providers Care Supervisor Force Adjustment Name Role Phone Jamarcus Rodriguez MD Primary Care Provider [phone] Encounter Details Date Type Department Care Team (Latest Contact Info) Description 03/02/2014 Anti-Coag Telephone [place] [address] Julio Rader RN Status post right hip [...] Therapeutic Range: 2.0-3.0 INR: 1.9 Drawn by: [facility] Bleeding: Epistaxis Black tarry stools Gingival [...] Results * (ABNORMAL) External Lab Results (03/02/2014) INR, POC 1.9(Tool Grinder Operator al Lab) 0.9 - 1.1 Comment:[facility] Historical Provider CHEMISTRY ORDERAB LES documented in this encounter Visit Diagnoses Diagnosis Status post right hip replacement Hip joint replacement by other means documented in this encounter Care Teams Supervisor Force Adjustment Relationship Specialty Start Date End Date Jamarcus Rodriguez MD [address] [place] [address] PCP - General 06/07/10 03/24/18 documented as of this encounter
--- OUTSIDE RECORDS SUMMARY | 2024-05-29 16:54 | XMS_ITS | Encounter Summary ---
[place] [address] Care Team Providers Care Steam Pan Sponger Name Role Phone Jamarcus Rodriguez MD Primary Care Provider [phone] Reason for Visit * Reason Comments Aftercare Of Tjr Lt Ant AMBER DOS Rt AMBER DOS 2008 Encounter Details Date Type Department Care Team (Late st Contact Info) Description 01/22/2015 11:00 AM EDT Office [place] [phone] Betty Dong APRN [facility] DR [place] [address] 02/04/2014 Dr. Holland Left Anterior AMBER; Status [...] encounter Progress Notes * Betty Dong [facility], HYDROMETER CALIBRATOR - 01/22/2015 11:25 AM EDT Arthroplasty/Orthopaedic History: [...] elderly Parents. She is no taking any long-term pain medicine. Other than minor falls,she has [...] means documented in this encounter Care Teams Steam Pan Sponger Relationship Specialty Start Date End Date Jamarcus Rodriguez MD [address] [place] [address] PCP - General 06/07/10 03/24/18 documented as of this encounter
--- OUTSIDE RECORDS SUMMARY | 2024-05-29 16:54 | XMS_ITS | Encounter Summary ---
Author Organization [facility] [place] [address] Care Team Providers Care Legal Secretary Receptionist Name Role Phone Jamarcus Rodriguez MD Primary Care Provider [phone] Encounter Details Date Type Department Care Team (Late st Contact Info) Description 12/25/2014 Orders [place] [address] Betty Dong APRN [facility] [place] [address] Aftercare following joint replacement Social History Tobacco [...] replacement documented in this encounter Care Teams Legal Secretary Receptionist Relationship Specialty Start Date End Date Jamarcus Rodirguez MD [address] [place], [place] [address] PCP - General 06/07/10 03/24/18 documented as of this encounter
--- OUTSIDE RECORDS SUMMARY | 2024-05-29 16:54 | XMS_ITS | Encounter Summary ---
[place] [address] Care Team Providers Care Youth Services Specialist Name Role Phone Jamarcus Rodriguez MD Primary Care Provider [phone] Encounter Details Date Type Department Care Team (Late st Contact Info) Description 02/02/2014 11:00 AM EDT Clinical Support [place] [address] Pain in limb Social History Tobacco Use [...] (Bezet) 418 ms MUSE SYSTEM Calculated P [place] 56 degrees MUSE SYSTEM Calculated R [place] 41 degrees MUSE SYSTEM Calculated T [place] 42 degrees MUSE SYSTEM INTERPRETATION Normal sinus [...] limb documented in this encounter Care Teams Youth Services Specialist Relationship Specialty Start Date End Date Jamarcus Rodriguez MD [address] [place] [address] PCP - General 06/07/10 03/24/18 documented as of this encounter
--- OUTSIDE RECORDS SUMMARY | 2024-05-29 16:54 | XMS_ITS | Encounter Summary ---
[place] [address] Care Team Providers Care Hand Candle Molder Name Role Phone Jamarcus Rodriguez MD Primary Care Provider [phone] Encounter Details Date Type Department Care Team (Latest Contact Info) Description 02/26/2014 Anti-Coag Telephone [place] [address] Betty Langford, RN Status post [...] Therapeutic Range: 2.0-3.0 INR: 2.2 Drawn by: [facility] Bleeding: Epistaxis Black tarry stools Gingival [...] Results * (ABNORMAL) External Lab Results (02/26/2014) INR, POC 2.0(Externa l Lab) 0.9 - 1.1 02/26/2014 Historical Provider CHEMISTRY ORDERAB LES documented in this encounter Visit Diagnoses Diagnosis Status post right hip replacement Hip joint replacement by other means documented in this encounter Care Teams Hand Candle Molder Relationship Specialty Start Date End Date Jamarcus Rodriguez MD [address] [place] [address] PCP - General 06/07/10 03/24/18 documented as of this encounter
--- OUTSIDE RECORDS SUMMARY | 2024-05-29 16:54 | XMS_ITS | Encounter Summary ---
[place] [address] Care Team Providers Care Stoneworking Belt Sander Name Role Phone Jamarcus Rodriguez MD Primary Care Provider [phone] Reason for Visit * Reason Onset Date Comments Medication Refill 02/17/2014 Encounter Details Date Type Department Care Team (Late st Contact Info) Description 02/17/2014 Refill [place] [address] Lance Holland MD [place] [address] Social History Tobacco Use Types Packs/Day Years [...] on filedocumented in this encounter Care Teams Stoneworking Belt Sander Relationship Specialty Start Date End Date Jamarcus Rodriguez MD [address] [place] [address] PCP - General 06/07/10 03/24/18 documented as of this encounter
--- OUTSIDE RECORDS SUMMARY | 2024-05-29 16:54 | XMS_ITS | Encounter Summary ---
Author Organization [facility] [place] [address] Care Team Providers Care Confidential Investigator Name Role Phone Jamarcus Rodriguez MD Primary Care Provider [phone] Encounter Details Date Type Department Care Team (Late st Contact Info) Description 02/23/2014 Anti-Coag Telephone [place] [address] Arnel Tucker MD [facility] [place] [address] Social History Tobacco Use Types Packs/Day Years [...] on filedocumented in this encounter Care Teams Confidential Investigator Relationship Specialty Start Date End Date Jamarcus Rodriguez MD [address] [place] [address] PCP - General 06/07/10 03/24/18 documented as of this encounter
--- OUTSIDE RECORDS SUMMARY | 2024-05-29 16:54 | XMS_ITS | Encounter Summary ---
Author Organization [facility] [place] [address] Care Team Providers Care Office Clin Asst Name Role Phone Jamarcus Rodriguez MD Primary Care Provider [phone] Encounter Details Date Type Department Care Team (Late st Contact Info) Description 02/04/2014 12:23 PM EDT Anesthesia Event [place] [id number] Alexandra Stone MD [facility] DR ANESTHESIOLOGY [place] [address] Anesthesia Record Procedure Summary Procedure Name Responsible Anesthesiologist Anesthesia Start Time Anesthesia Stop Time TOTAL HIP ARTHROPLASTY, ANTERIOR APPROACH (WRVU 19.6) (Left: Hip) Alexandra Stone MD 02/04/14 1223 02/04/14 1421 Events Date Time Event Comment 02/04/2014 1208 1223 Start 1227 AN Verify 1227 An Start Data 1239 Anesthesia Ready 1255 Break/Relief In Josias Morris Fo x, CONICAL MIXER 1414 an stop data 1421 Stop Meds [...] cephalic vein left (lateral side of arm); fmic-ufj-jvqdjw catheter system; 20 gauge, 1 in length; [...] Ryley Shankar RN 02/05/14 0600 by Lindsey Estrada SAND SCREENER Incision 02/04/14; 1303; hip; 04/01/18; 1525 02/04/14 [...] consented to blood products. Plan discussed with CONICAL MIXER and attending. Misc. Assessment: documented in this [...] Supervising Attending/Fellow: Chase ~~~~~~~~~~~~~~~~~~~~~~~~~~~~~~~~~~~~~~~~~~~~~~~~~~~~~~~~~~~~ Alexandra Stone MD [facility] documented in this encounter Visit Diagnoses [...] mg documented in this encounter Care Teams Office Clin Asst Relationship Specialty Start Date End Date Jamarcus Rodriguez MD [address] [place] [address] PCP - General 06/07/10 03/24/18 documented as of this encounter
--- OUTSIDE RECORDS SUMMARY | 2024-05-29 16:55 | XMS_ITS | Encounter Summary ---
Author Organization [facility] Address [address] [place] [address] Care Team Providers Care Radiation Monitor Name Role Phone Unavailable Primary Care Provider Unavailabl e Encounter Details Date Type Department Care Team (Late st Contact Info) Description 10/09/2008 Before PRISM Converted Visit ([facility]) [facility] - Maple conversion [address] [place] [address] Charisma Hawkins, [address] [id number] Social History Tobacco Use Types Packs/Day Years Used Date Smoking Tobacco: Never Assessed Comments Unknown Sex and Gender Information Value Date Recorded Sex Assigned at Not on file Legal Sex Female 18:05 EST Gender Identity Not on file Sexual Orientation [...] ? ALYSSA PEACE ? Accession #: ? [id number] ? : ? 1945 (Age: 63) ??F ? Collect Date: ? 10/26/2008 ? Location: ? [facility] ? Receive Date: ? 10/27/2008 ? Provider: SUE B HARKIN SNAGGER ? Copy to: NIRAV W WOOD MD [...] in formalin labelled Alyssa Peace and Jerilyn deng ?? is a shave biopsy of figueroa-white, scaly skin measuring 0.7 x 0.6 x 0.1 cm. ??The ?? specimen is trisected and is entirely submitted as (A). ? Received in formalin labelled Alyssa Peace and Jerilyn chest wall is a punch biopsy of [...] and is entirely submitted as (C). ??(Olinda Juarez)/[facility] ? End of Report ? [facility] 10/26/2008 10/27/2008 14: 30 EDT us Sue Valderrama CATH LAB MANAGER PATHOLOGY ORDERABLES Final Resu lt [facility] [address] [place] [address] * HUMAN PAPILLOMA VIRUS DNA TEST (10/09/2008 14:52 EDT) Specimen Description Cervix, ThinPrep vial [facility] Result Negative for HPV types 16, 18, 31, 33, 35, 39, 45, 51, 52, 56, 58, 59, and 68. [facility] Report Status Final 10/20/2008 [facility] 10/09/2008 14:5 2 EDT 10/13/2008 14:52 EDT us Charisma BALTAZARM MICROBIOLOGY - GENERAL O RDERABLES Final Result [facility] [address] [place] [address] * CYTOPATHOLOGY (10/09/2008 0:00 EDT) Pathology Report: CYTOPATHOLOGY REPORT ? Reports generated via electronic interface contain original data; ? however they are lacking the format of the original report. ? Caution should be taken when reading/interpreti ng unformatted reports. ? Name: ? ALYSSA PEACE ? Accession #: ? [id number] ? : ? 1945 (Age: 63) ??F [...] reviewed and electronically signed by: ? Ashly Edgardo, CT(ASCP) ? Report Date: ??10/13/2008 09:50 ? End of Report ? [facility] 10/09/2008 10/12/2008 us Charisma Hawkins CNM PATHOLOGY ORDERABLES Fin al Result [facility] [address] [place] [address] documented in this encounter Visit Diagnoses Not on filedocumented in this encounter
--- OUTSIDE RECORDS SUMMARY | 2024-05-29 16:55 | XMS_ITS | Encounter Summary ---
Author Organization [facility] Address [place] [id number] Care Team Providers Care Control Room Technician Name Role Phone Jamarcus Rodriguez MD Primary Care Provider [phone] Encounter Details Date Type Department Care Team (Late st Contact Info) Description 09/02/2010 3:20 PM EST Procedure visit [address] [address] Social History Tobacco Use Types Packs/Day Years Used Date Smoking Tobacco: Never Assessed Sex and Gender Information Value Date Recorded Sex Assigned at Not on file Gender Identity Not on file Sexual Orientation Not on file documented as of this encounter Plan of Treatment Not on file documented as of this encounter Visit Diagnoses Not on filedocumented in this encounter Care Teams Control Room Technician Relationship Specialty Start Date End Date Jamarcus Rodriguez MD [address] [place] [address] PCP - General 06/07/10 03/24/18 documented as of this encounter
--- OUTSIDE RECORDS SUMMARY | 2024-05-29 16:55 | XMS_ITS | Encounter Summary ---
[place] [address] Care Team Providers Care College Teacher Name Role Phone Jamarcus Rodriguez MD Primary Care Provider [phone] Reason for Visit * Reason Comments Left Hip Pain Aftercare Of Tjr s/p left svetlana shareeini Encounter Details Date Type Department Care Team (Latest Contact Info) Description 12/29/2013 12:10 PM EDT Office [place] [phone] Lance Holland MD [place] [address] Primary osteoarthritis of left hip (Primary Dx); [...] this encounter Progress Notes * Betty Dong, PLANT MAINTENANCE SUPERVISOR - 12/29/2013 12:58 PM EDT Chief Complaint: 1. Rotary appointment for right hip SVETLANA. 2. Left hip pain. PERTINENT SURGICAL HISTORY: On 12/02/2008, right total hip arthroplasty by Dr. Cifuentes. SURGERY DATE: 12/02/2008 SHINE CIFUENTES MD ([id number]) Right total hip arthroplasty. Preoperative Diagnosis: Right hip osteoarthritis. Postoperative Diagnosis: Right hip osteoarthritis. Implants: All are from the [employer] Total Hip System: 1. [place] 300 series acetabular cup, 50 mm. 2. +4 lateral Binger polyethylene liner. 3. A 32+0 ceramic head. [...] does split her time between [place] and [place] to care for her aging parents essentially spending ~ 6 months in [place] and [place]. She describes her left hip pain as moderate to severe with difficulty putting her shoes and socks on. She does use a cane for assistance and wete-udm-iaoxdrk anti-inflammatories. She is just about to start [...] ??? 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 History Substance Use Topics ??? Smoking status: Former Smoker ??? Smokeless tobacco: Never Used Comment: in college ??? Alcohol Use: No Questionnaire Responses: myD-H Hip & Knee 12/22/2013 MODEMS Expectation 56.25 MODENE Satisfaction - VR12 - Physical Component Summary [...] There is an OPEN MRI scan from [place] November 2013 that reveals moderate to severe [...] means documented in this encounter Care Teams College Teacher Relationship Specialty Start Date End Date Jamarcus Rodriguez MD [address] [place] [address] PCP - General 06/07/10 03/24/18 documented as of this encounter
--- OUTSIDE RECORDS SUMMARY | 2024-05-29 16:55 | XMS_ITS | Encounter Summary ---
Author Organization [facility] Address [address] [place] [address] Care Team Providers Care Nurse Anesthetist Name Role Phone Unavailable Primary Care Provider Unavailabl e Encounter Details Date Type Department Care Team (Late st Contact Info) Description 01/02/2012 Results Only [facility] Laboratory Services - [facility] ([facility] [address], [place] [id number] Charisma Hawkins, [address] [phone] Social History Tobacco Use Types Packs/Day Years [...] ? ALYSSA BOYLE ? Accession #: ? [id number] ? : ? 1945 (Age: 66) ??F [...] types 16,18,31,33,35, 39,45,51,52,56,58, 59,66, and 68 by fire investigator mediated amplification. Comments Document reviewed and electronically signed by: ? System Interface ? Report date: 01/08/2012 By the signature above, the attending physician certifies that he/she has personally conducted a gross and/or microscopic examination of the described specimens and rendered or confirmed the above diagnosis. End of Report [facility] 01/02/2012 12:0 0 EDT 01/03/2012 us Charisma Hawkins CNM PATHOLOGY ORDERABLES Fin al Result [facility] [address] [place] [address] documented in this encounter Visit Diagnoses Not on filedocumented in this encounter
--- OUTSIDE RECORDS SUMMARY | 2024-05-29 16:55 | XMS_ITS | Encounter Summary ---
Author Organization [facility] Address [address] [place] [address] Care Team Providers Care Independent Insurance Adjuster Name Role Phone Unavailable Primary Care Provider Unavailabl e Encounter Details Date Type Department Care Team (Late st Contact Info) Description 05/21/2003 Results Only [facility] conversion [address] [place] [address] Cyndi Lorenz MD Social History Tobacco Use [...] ? ALYSSA DUBOIS ? Accession #: ? [id number] : ? 1945 (Age: 57) ??F ?Collect Date: ? 05/21/2003 Location: ? [facility] ? Receive Date: ? 05/25/2003 Provider: ?CYNDI LORENZ MD Copy to: ? [facility] ?[address] ?[place] [address] ? Specimen/Source: ?ThinPrep Pap Test, Source Not [...] End of Report [facility] 05/21/2003 05/25/2003 us Cyndi Lorenz MD PATHOLOGY ORDERABLES Fi nal Result [facility] [address] [place] [address] documented in this encounter Visit Diagnoses Not on filedocumented in this encounter
--- OUTSIDE RECORDS SUMMARY | 2024-05-29 16:55 | XMS_ITS | Encounter Summary ---
Author Organization [facility] Address [facility] [place] [address] Care Team Providers Care Cable Former Name Role Phone Carina Davis Primary Care Provider [phone] Encounter Details Date Type Department Care Team (Late st Contact Info) Description 12/02/2008 Orders [place] [address] Moustapha Morales MD [facility] [place] [address] Social History Tobacco Use Types Packs/Day Years [...] (12/02/2008 10:43 AM EDT) Surgical Pathology Report [id number] ? Location: [facility]; 0318; A The signing pathologist has (i) examined [...] ?Smooth, red trabecular bone. ?? Articular surface: [place], finely granular and pitted. ? Eburnation: ?Present ? Osteophytes: ? Present ?? Cut surface: ? Yellow trabecular bone. ? Subchondral Sclerosis: ??Present ? Subchondral Cysts: ?Absent Sections/Proces sing: ??No sections submitted. ? 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 ?? Gross surgical pathology examination. CR-0 12/03/08 [facility] 12/03/08 Verified by: ? Karime YIP, Jacky ?Pathologist ?(Electronic Signature) The attending pathologist whose signature appears on this report has reviewed all diagnostic slides and has edited the gross and/or microscopic portion of the report in rendering the final pathologic diagnosis. [facility] 12/02/2008 10:4 3 AM EDT Moustapha Morales MD PATHOLOGY/CYTOLOGY O RDERABLES [facility] documented in this encounter Visit Diagnoses Not on filedocumented in this encounter Care Teams Cable Former Relationship Specialty Start Date End Date Carina Davis PA [address] [address] PCP - General Family Medicine 03/02/22 documented as of this encounter
--- OUTSIDE RECORDS SUMMARY | 2024-05-29 16:55 | XMS_ITS | Encounter Summary ---
Author Organization [facility] Address [facility] [place] [address] Care Team Providers Care Sat Math Tutor Name Role Phone Jamarcus Rodriguez MD Primary Care Provider [phone] Encounter Details Date Type Department Care Team (Latest Contact Info) Description 03/21/2012 4:00 PM EDT - 03/21/2012 11:59 PM EDT Hospital Encounter XRay at [address] [place] [address] CLINIC, Moustapha Lynne MD [facility] [place] [address] Knee joint pain Discharge Disposition: Home Social [...] leg documented in this encounter Care Teams Sat Math Tutor Relationship Specialty Start Date End Date Jamarcus Rodriguez MD [address] [place] [address] PCP - General 06/07/10 03/24/18 documented as of this encounter
--- OUTSIDE RECORDS SUMMARY | 2024-05-29 16:55 | XMS_ITS | Encounter Summary ---
Author Organization [facility] Address [address] [place] [address] Care Team Providers Care Fall Intern Name Role Phone Unavailable Primary Care Provider Unavailabl e Encounter Details Date Type Department Care Team (Latest Contact Info) Description 10/26/2008 16:54 EDT Hospital Encounter [facility] - Other [address] [place] [address] Lilia Valderrama, INSTRUCTIONAL COORDINATOR [address] [place] [address] Discharge Disposition: Home or Self Care Social [...]
--- OUTSIDE RECORDS SUMMARY | 2024-05-29 16:55 | XMS_ITS | Encounter Summary ---
[place] [address] Care Team Providers Care Survey Research Analyst Name Role Phone Jamarcus Rodriguez MD Primary Care Provider [phone] Encounter Details Date Type Department Care Team (Late st Contact Info) Description 12/25/2013 Orders [place] [address] Lance Holland MD [address] [place] [address] Status post right hip replacement (Primary Dx); [...] thigh documented in this encounter Care Teams Survey Research Analyst Relationship Specialty Start Date End Date Jamarcus Rodriguez MD [address] [place], [place] [id number] PCP - General 06/07/10 03/24/18 documented as of this encounter
--- OUTSIDE RECORDS SUMMARY | 2024-05-29 16:55 | XMS_ITS | Encounter Summary ---
[place] [address] Care Team Providers Care Treasury Management Sales Consultant Name Role Phone aJmarcus Rodriguez MD Primary Care Provider [phone] Encounter Details Date Type Department Care Team (Late st Contact Info) Description 01/08/2014 Orders Only [place] [phone] Steff Shukla MD [address] [place] [address] Pain in limb; Debility Social History Tobacco [...] STEFF SHUKLA ? ALYSSA [place] ? MR#: [id number] ?LOC: ??3D ? /Sex: ??1945 (68 years), [...] Film and interpretation reviewed by the attending Authorizing Provider Result Van Shukla MD IMG DX ORDERABLES * EKG 12 Lead (02/02/2014 11:31 AM EDT) Ventricular rate 65 BPM MUSE SYSTEM Atrial Rate 65 BPM MUSE SYSTEM P-R Interval 154 ms MUSE SYSTEM QRS Duration 80 ms MUSE SYSTEM Q-T Interval 402 ms MUSE SYSTEM QTC Calculated (Bezet) 418 ms MUSE SYSTEM Calculated P [place] 56 degrees MUSE SYSTEM Calculated R [place] 41 degrees MUSE SYSTEM Calculated T [place] 42 degrees MUSE SYSTEM INTERPRETATION Normal sinus rhythm Normal ECG When compared with ECG of 22-OCT-2008 12:37, No significant change was found Confirmed by MD FERMÍN, JOHN ([id number]) on 02/02/2014 5:19:38 PM MUSE SYSTEM 02/02/2014 11:3 1 AM EDT 02/02/2014 5:19 PM EDT Narrative Authorizing Provider Result Van Shukla MD ECG ORDERABLES Performing Organization Address City/[facility] Co de Phone Number MUSE SYSTEM * Sedimentation rate (02/02/2014 11:17 AM EDT) Sedimentation Rate Automated 11 0 - 20 mm/hr [facility] Blood specimen (specimen) 02/02/2014 11:17 AM EDT 02/02/2014 11:34 AM EDT Narrative Resulting Agency Comment Spec In Lab Authorizing Provider Result Van Shukla MD HEMATOLOGY ORDERABLE S [facility]ER [facility] * High Sensitivity CRP (02/02/2014 11:17 AM EDT) [facility] C-Reactive Protein High Sensitivity 2.8 mg/L [facility] Comment: Interpretations: 1) For accurate cardiac [...] Shukla MD CHEMISTRY ORDERABLES Performing Organization Address [facility] Phone Number [facility] * Albumin Level (02/02/2014 11:17 AM EDT) [facility] Albumin 4.5 3.2 - 5.2 gm/dL [facility] Blood specimen (specimen) 02/02/2014 11:17 AM EDT 02/02/2014 11:34 AM EDT Narrative Resulting Agency Comment Spec In Lab Steff Shukla MD CHEMISTRY ORDERABLES Performing Organization Address [facility] Phone Number [facility] * Protein, total (02/02/2014 11:17 AM EDT) Protein, Total 7.4 6.4 - 8.3 gm/dL [facility] KRYSTYNAENNIUM Blood specimen (specimen) 02/02/2014 11:17 AM EDT 02/02/2014 11:34 AM EDT Narrative Resulting Agency Comment Spec In Lab Authorizing Provider Result Van Shukla MD CHEMISTRY ORDERABLES Performing Organization Address [facility] Co de Phone Number [facility] * Prothrombin Time (02/02/2014 11:17 AM EDT) Prothrombin Time 12.6 12.5 - 15.5 sec [facility] Comment: [facility] Transfusion Committee Guidelines: INR less than 2.0, PTT less than OR equal to 43.5 seconds, or Fibrinogen greater than or equal to 100 mg/dl indicate adequate procoagulant activity for hemostasis in patients without underlying bleeding disorders. International Normalization Ratio 0.9 0.9 - 1.1 [facility] KRYSTYNA[facility]NIUM Blood specimen (specimen) 02/02/2014 11:17 AM EDT 02/02/2014 11:34 AM EDT Narrative Resulting Agency Comment Spec In Lab Authorizing Provider Result Van Shukla MD HEMATOLOGY ORDERABLE S Performing Organization Address [facility] de Phone Number [facility] * Basic Metabolic Panel (non-fasting) (02/02/2014 11:17 AM EDT) Glucose 102 60 - 199 mg/dL [facility] Comment:Diabetes: >=200 mg/d L plus symptoms Blood Urea Nitrogen 14 8 - 18 mg/dL [facility] MILLENNIUM Creatinine 0.76 0.70 - 1.20 mg/dL [facility] MILLENNIUM Comment: Please note that the pediatric reference intervals supplied above were not validated at [facility]. Results from pediatric patients should be interpreted in conjunction to the patient's age, height and muscle mass. Sodium 141 135 - 145 mmol/L [facility] MILLENNIUM Potassium 3.7 3.5 - 5.0 mmol/L [facility] Comment: Please note: ??Patients with WBC >100,000 [...] the following links into your internet browser. [email or web address] Blood specimen (specimen) 02/02/2014 11:17 AM EDT 02/02/2014 11:34 AM EDT Narrative Resulting Agency Comment Spec In Lab Steff Shukla MD CHEMISTRY ORDERABLES [facility] documented in this encounter Visit Diagnoses Diagnosis Pain in limb Debility Debility, unspecified Pain in limb Pain in limb documented in this encounter Care Teams Treasury Management Sales Consultant Relationship Specialty Start Date End Date Jamarcus Rodriguez MD [address] [place] [address] PCP - General 06/07/10 03/24/18 documented as of this encounter
--- OUTSIDE RECORDS SUMMARY | 2024-05-29 16:55 | XMS_ITS | Encounter Summary ---
Author Organization [facility] Address [address] [place] [address] Care Team Providers Care Welding Machine Operator Arc Name Role Phone Unavailable Primary Care Provider Unavailabl e Encounter Details Date Type Department Care Team (Late st Contact Info) Description 11/03/2004 Results Only [facility] conversion [address] [place] [address] Cyndi Lorezn MD Social History Tobacco Use Types Packs/Day [...] ? ALYSSA DUBOIS ? Accession #: ? [id number] : ? 1945 (Age: 59) ??F ?Collect Date: ? 11/03/2004 Location: ? [facility] ? Receive Date: ? 11/07/2004 Provider: ?CYNDI LORENZ MD Copy to: ? [facility] ?[address] ?[place], [place] [address] ? Specimen/Source: ?ThinPrep Pap Test, Cervix/Endocervix Last [...] End of Report [facility] 11/03/2004 11/07/2004 us Cyndi Lorenz MD PATHOLOGY ORDERABLES Fi nal Result [facility] [address] [place] [address] documented in this encounter Visit Diagnoses Not on filedocumented in this encounter
--- OUTSIDE RECORDS SUMMARY | 2024-05-29 16:55 | XMS_ITS | Encounter Summary ---
Author Organization [facility] Address [facility] [place] [address] Care Team Providers Care Assessment Technician Name Role Phone Jamarcus Rodriguez MD Primary Care Provider [phone] Reason for Visit * Reason Comments Aftercare Of Tjr s/p right AMBER 11/21 Left Hip Pain Encounter Details Date Type Department Care Team (Late st Contact Info) Description 03/21/2012 2:55 PM EDT Office [place] [phone] Nancy Acosta APRN [facility] [place] [address] Knee joint pain (Primary Dx); Status post [...] encounter Progress Notes * Stephen-Ki, Nancy Higginbotham, PIT FURNACE MELTER - 03/21/2012 4:05 PM EDT DATE OF [...] The contralateral left hip appears to show vqna-af-ycodaixb joint space narrowing. I do not have [...] in this encounter H&P Notes * Provider, Scanning - 02/02/2014 12:02 PM EDT documented in [...] leg documented in this encounter Care Teams Assessment Technician Relationship Specialty Start Date End Date Jamarcus Rodriguez MD [address] [place] [address] PCP - General 06/07/10 03/24/18 documented as of this encounter
--- OUTSIDE RECORDS SUMMARY | 2024-05-29 16:55 | XMS_ITS | Encounter Summary ---
Author Organization [facility] Address [address] [place] [address] Care Team Providers Care Construction Rigger Name Role Phone Unavailable Primary Care Provider Unavailabl e Encounter Details Date Type Department Care Team (Late st Contact Info) Description 11/16/2006 Results Only [facility] conversion [address] [place] [address] Alvin Jauregui MD Social History Tobacco Use [...] ? ALYSSA DUBOIS ? Accession #: ? [id number] : ? 1945 (Age: 61) ??F ?Collect [...] [facility] 11/16/2006 11/19/2006 8:5 4 EDT us Alvin Jauregui MD PATHOLOGY ORDERABLES Final Re sult [facility] [address] [place] [address] documented in this encounter Visit Diagnoses Not on filedocumented in this encounter
--- OUTSIDE RECORDS SUMMARY | 2024-05-29 16:55 | XMS_ITS | Referral Summary ---
Author Organization [facility] Address [address] [place] [address] Care Team Providers Care Silver Lap Machine Tender Name Role Phone Unknown, Provider Primary Care Provider Unava ilable Social History Tobacco Use Types Packs/Day Years Used Date Smoking Tobacco: Never Assessed Comments Unknown Sex and Gender Information Value Date Recorded Sex Assigned at Not on file Legal Sex Female 18:05 EST Gender Identity Not on file Sexual Orientation Not on file Plan of Treatment Not on file Care Teams Silver Lap Machine Tender Relationship Specialty Start Date End Date Unknown, Provider, PCP - General 05/20/15
--- OUTSIDE RECORDS SUMMARY | 2024-05-29 16:55 | XMS_ITS | Encounter Summary ---
Author Organization [facility]ly [facility] Address One [facility] [place] [address] Care Team Providers Care Home Sales Service Professional Name Role Phone Jamarcus Rodriguez MD Primary Care Provider [phone] Encounter Details Date Type Department Care Team (Late st Contact Info) Description 03/21/2012 2:14 PM EDT - 03/21/2012 3:59 PM EDT Hospital En[place] [facility] [place] [address] [facility] [id number] Left hip pain Social History Tobacco Use [...] thigh documented in this encounter Care Teams Home Sales Service Professional Relationship Specialty Start Date End Date Jamarcus Rodriguez MD [address] [place] [address] PCP - General 06/07/10 03/24/18 documented as of this encounter
--- OUTSIDE RECORDS SUMMARY | 2024-05-29 16:55 | XMS_ITS | Encounter Summary ---
Author Organization [facility] Address [address] [place] [address] Care Team Providers Care Endocrinologist Name Role Phone Unavailable Primary Care Provider Unavailabl e Encounter Details Date Type Department Care Team (Late st Contact Info) Description 03/01/2001 Results Only [facility] [place] [address] [place] [address] Cyndi Lorenz MD Social History Tobacco Use [...] ? ALYSSA DUBOIS ? Accession #: ? [id number] : ? 1945 (Age: 55) ??F ?Collect Date: ? 03/01/2001 Location: ? [facility] ? Receive Date: ? 03/06/2001 Provider: ?CYNDI LORENZ MD Copy to: ? [facility] ? [address] ? [place] [address] ? Specimen/Source: ?ThinPrep Pap Test, Source Not Provided Last Menstrual Period: ? 2 weeks ago. ? SPECIMEN ADEQUACY ? Satisfactory for evaluation but limited by an absence of a transformation zone component. GENERAL CATEGORIZATION ? Within Normal Limits ? Document reviewed and electronically signed by: ? MARIANNE Frausto(ASCP) ? Report Date: ??03/08/2001 13:26 End of Report [facility] 03/01/2001 03/06/2001 us Cyndi Lorenz MD PATHOLOGY ORDERABLES Fi nal Result [facility] [address] [place] [address] documented in this encounter Visit Diagnoses Not on filedocumented in this encounter
--- OUTSIDE RECORDS SUMMARY | 2024-05-29 16:55 | XMS_ITS | Encounter Summary ---
Author Organization [facility] Address One [facility] [place] [address] Care Team Providers Care Quality Control Expert Name Role Phone Jamarcus Rodriguez MD Primary Care Provider Encounter Details Date Type Department Care Team (Latest Contact Info) Description 12/29/2013 11:22 AM EDT - 12/29/2013 11:59 PM EDT Hospital Encounter XRay at [facility] 1 [facility] [place] [id number] Pain in left hip Social History Tobacco [...] documented in this encounter Care Teams Quality Control Expert Relationship Specialty Start Date End Date Jamarcus Rodriguez MD [address] [place] [address] PCP - General 06/07/10 03/24/18 documented as of this encounter
--- OUTSIDE RECORDS SUMMARY | 2024-05-29 16:55 | XMS_ITS | Clinical Summary ---
Author Organization [facility] Address [address] [place] [address] Care Team Providers Care Psychology Tech Name Role Phone Unknown, Provider Primary Care [...] Last Done Comments Hepatitis C Screen 1945 Fall Risk Screening 2012 RSV Immunization ( o r 60+ Years) (1 - 1-dose 75+ series) 2022 COVID-19 Vaccine ( season) 2024 Care Teams Psychology Tech Relationship Specialty Start Date End Date Unknown, Provider, PCP - General 05/20/15
--- OUTSIDE RECORDS SUMMARY | 2024-05-29 16:55 | XMS_ITS | Encounter Summary ---
Author Organization [facility] Address [address] [place] [address] Care Team Providers Care Senior Linux Unix Administrator Name Role Phone Unavailable Primary Care Provider Unavailabl e Encounter Details Date Type Department Care Team (Late st Contact Info) Description 05/19/2002 Results Only [facility] [place] [address] [place] [address] Cyndi Lorenz MD Social History Tobacco Use [...] ? ALYSSA DUBOIS ? Accession #: ? [id number] : ? 1945 (Age: 56) ??F ?Collect Date: ? 05/19/2002 Location: ? [facility] ? Receive Date: ? 05/22/2002 Provider: ?CYNDI LORENZ MD Copy to: ? [facility] ? [facility] ?[address] ?[place] [address] ? Specimen/Source: ?ThinPrep Pap Test, Cervix/Endocervix Last Menstrual Period: ? 05/08/02 ? SPECIMEN ADEQUACY ? Satisfactory for Evaluation - transformation zone component absent GENERAL CATEGORIZATION ? Negative for Intraepithelial Lesion or Malignancy ? Document reviewed and electronically signed by: ? Chanel Naik, ??SCT(ASCP) ? Report Date: ??05/27/2002 12:41 End of Report SHASHANK MARINA 05/19/2002 05/22/2002 us Cyndi Lorenz MD PATHOLOGY ORDERABLES Fi nal Result [facility] [address] [place] [address] documented in this encounter Visit Diagnoses Not on filedocumented in this encounter
--- OUTSIDE RECORDS SUMMARY | 2024-05-29 16:55 | XMS_ITS | Encounter Summary ---
Author Organization Formerly [facility] Address [facility] [place] [address] Care Team Providers Care Sliver Lap Machine Tender Name Role Phone Jamarcus Rodriguez MD Primary Care Provider [phone] Encounter Details Date Type Department Care Team (Late st Contact Info) Description 09/02/2010 4:20 PM EST Follow-[place] [phone] Moustapha Morales MD [facility] [place] [address] Discharge Disposition: Home Social History Tobacco Use [...] on filedocumented in this encounter Care Teams Sliver Lap Machine Tender Relationship Specialty Start Date End Date Jamarcus Rodriguez MD [address] [place] [address] PCP - General 06/07/10 03/24/18 documented as of this encounter
--- OUTSIDE RECORDS SUMMARY | 2024-05-29 16:55 | XMS_ITS | Encounter Summary ---
Author Organization [facility] Address [facility] [place] [address] Care Team Providers Care Wet Finisher Wool Name Role Phone Jamarcus Rodriguez MD Primary Care Provider [phone] Encounter Details Date Type Department Care Team (Late st Contact Info) Description 03/20/2012 Orders [place] [address] Nancy Acosta APRN [facility] [place] [address] Left hip pain (Primary Dx) Social History [...] thigh documented in this encounter Care Teams Wet Finisher Wool Relationship Specialty Start Date End Date Jamarcus Rodriguez MD [address] [place], [place] [id number] PCP - General 06/07/10 03/24/18 documented as of this encounter
[2024-05-29 19:31] LABS: Abs Immature Grans 0.02 10^3/uL (0.0-0.06); Absolute Basophil Count 0.05 10^3/uL (0.0-0.2); Absolute Lymphocyte Count 1.03 10^3/uL (1.2-3.4); Absolute Monocyte Count 0.37 10^3/uL (0.1-0.8); Absolute Neutrophil Count 3.87 10^3/uL (1.2-6.7); Basophils % 0.9 %; Eosinophils % 1.8 %; HCT 36.6 % (36.0-46.0); HGB 11.3 g/dL (11.2-15.7); Immature Grans % 0.4 %; Lymphocytes % 18.9 %; MCH 24.5 pg (27.0-33.0); MCHC 30.9 % (32.0-36.0); MCV 79 fL (80-95); MPV 10.4 fL (8.0-11.0); Monocytes % 6.8 %; Neutrophils % 71.2 %; Platelet Count 245 10^3/uL (130-400); RBC 4.61 10^6/uL (3.93-5.22); RDW 15.8 % (11.7-14.6); RDW-SD 45.3 fL; WBC 5.44 10^3/uL (4.4-10.8)
[2024-05-29 19:39] LABS: Iron 45 ug/dL (50-170); Total Iron Binding Capacity 495 ug/dL (250-450); Transferrin Sat 9 % (15-50)
[2024-05-29 20:03] LABS: Ferritin 19 ng/mL (8-252); TSH (W/Ref FT4) 1.21 uIU/mL (0.36-3.74); Vitamin D 25 Total 28.1 ng/mL (30-100)
[2024-05-30 22:08] LABS: Hepatitis C Ab w Rflx HCV PCR Negative (Negative)
== END 2024-05-29 16:51 | disposition home or self-care (01) ==
LOC: NCHCN 16:50
PROVIDERS: PCP Physician Assistant; Visit Provider Physician Assistant
DX: E03.9 Hypothyroidism, unspecified (principal); Z11.59 Encounter for screening for other viral diseases; E55.9 Vitamin D deficiency, unspecified; D64.9 Anemia, unspecified
CPT/HCPCS: 82306; 86803; 82728; 83540; 83550; 84443; 85025

== ENCOUNTER 2024-10-06 15:27 | Outpatient (CLI) | payer MEDICARE, SELFPAY ==
--- NOTE | 2024-10-06 15:00 | DI.RAD_ITS ---
Exam(s) XR KNEE LT 1V XR STANDING ALIGNMENT XR HIP RT AP LAT ONLY EXAM: XR STANDING ALIGNMENT CLINICAL HISTORY: LEFT KNEE PAIN. TECHNIQUE: 2D digital imaging was performed. Standing AP views were performed from the pelvis throu gh the ankles. COMPARISON: CR,DX XR KNEE STANDING ALIGNMENT AP LAT [place] SKYLINE BILAT from 02/26/2019 CR XR PELVIS AP from 02/05/2024 CR XR HIP RT AP LAT ONLY from 02/18/2024 CR XR HIP RT AP LAT ONLY from 10/06/2024 CR XR KNEE LT 1V from 10/06/2024 FINDINGS: BONES: No acute fracture is present. No bony destructive lesion is seen. Leg length discrepancy: No significant overall leg length discrepancy. JOINTS: Knees: Left: Severe degenerative changes of the medial femoral tibial joint space of the left knee, with fla ttening of the medial femoral condyle prominent periarticular spurring. There is compensatory wideni ng of the lateral femoral tibial joint space which also shows prominent spurring. There is spurring at the patellofemoral joint. Right knee: Mild narrowing of the lateral femoral tibial joint space and periarticular spurring.. The ankle joints are unremarkable. Hips: Stable alignment of bilateral hip prostheses. No abnormal surrounding bony lucencies. SOFT TISSUE: Chronic soft tissue calcification posterior to the distal left femur. Mild vascular song cifications. Mild bilateral lower leg edema. IMPRESSION: Severe degenerative changes of the medial femoral tibial joint space of the left knee. Moderate deg enerative changes of the lateral femoral tibial joint space of the right knee. Stable appearance of bilateral hip prostheses. No significant leg length discrepancy. DATA REPOSITORY: RADIATION DOSE DELIVERED:
== END 2024-10-06 15:28 | disposition home or self-care (01) ==
LOC: DIORS 15:27
PROVIDERS: PCP Physician Assistant; Referring Provider Physician Assistant; Visit Provider Student in an Organized Health Care Education/Training Program
DX: M17.12 Unilateral primary osteoarthritis, left knee (principal); Z96.641 Presence of right artificial hip joint
CPT/HCPCS: 99214; 73502; 73560; 77073

== ENCOUNTER 2024-11-23 09:49 | Emergency (ER) | payer MEDICARE, SELFPAY ==
[2024-11-23 09:53] VITALS: BP 194/76; PULSE 76; RESP 20; TEMP 36.7; O2SAT 95
--- NOTE | 2024-11-23 10:00 | DI.RAD_ITS ---
Exam(s) XR KNEE RT 3V AP,LAT,AURA EXAM: XR KNEE RT 3V AP,LAT,AURA CLINICAL HISTORY: Right knee swelling and pain. TECHNIQUE: 2D digital imaging was performed. COMPARISON: CR XR KNEE LT 1V from 10/06/2024 FINDINGS: 3 views No evidence of acute fracture but there is a moderate size joint effusion evident. There are moderate tricompartmental osteoarthritic degenerative changes. Also noted is a small osteo chondroma off the lateral aspect of the diaphysis-metaphysis junction of the distal femur. Vascular calcification noted. IMPRESSION: Degenerative changes in the knee. Joint effusion. No fracture. DATA REPOSITORY: RADIATION DOSE DELIVERED:
--- NOTE | 2024-11-23 10:13 | ED.GENADUL_ITS ---
Discharge Plan Disposition Patient Disposition: Home Condition: Stable Discharge Details Clinical Impression: Osteoarthritis of right knee, Tick bite Primary Care Provider: Carina Davis ED Provider: Ana Maria Cruz Home Meds and New Rx's Prescriptions: Continued albuterol sulfate [ProAir HFA] 90 mcg/actuation HFA aerosol inhaler 2 puff inhalation Q6H PRN epinephrine 0.3 mg/0.3 mL auto-injector 0.3 mg IM ONCE Rx Instructions: as a single dose; may repeat once acyclovir 800 mg tablet 800 mg PO TID Patient Comments: uses PRN for cold sores cholecalciferol (vitamin D3) 50 mcg (2,000 unit) capsule 3,000 unit PO DAILY naproxen 500 mg tablet 500 mg PO BID omeprazole 20 mg capsule,delayed release(DR/EC) 20 mg PO DAILY sertraline 50 mg tablet 50 mg PO DAILY cyanocobalamin (vitamin B-12) 1,000 mcg capsule 1,000 mcg PO DAILY tramadol 50 mg tablet 50 mg PO Q8H PRN (Reason: pain) Qty: 6 0RF Rx Instructions: Take one tablet up to every 8 hours as needed acetaminophen 500 mg tablet See Rx Instructions .ROUTE .COMPLEX Qty: 90 3RF Dose Instruction: TAKE TWO TABLETS BY MOUTH EVERY 8 HOURS NEEDED FOR PAIN Rx Instructions: TAKE TWO TABLETS BY MOUTH EVERY 8 HOURS NEEDED FOR PAIN celecoxib 200 mg capsule See Rx Instructions .ROUTE .COMPLEX Qty: 60 1RF Dose Instruction: TAKE ONE CAPSULE BY MOUTH TWICE A DAY NEEDED FOR PAIN Rx Instructions: TAKE ONE CAPSULE BY MOUTH TWICE A DAY NEEDED FOR PAIN clobetasol 0.05 % cream 1 applic topical DAILY estradiol [Estrace] 0.01 % (0.1 mg/gram) cream 1 g vaginal DIRECTED Patient Comments: hasn't been using recently Rx Instructions: for 14 days levothyroxine 50 mcg tablet 50 mcg PO DAILY Patient Comments: TAKE ONE TABLET BY MOUTH EVERY DAY BEFORE MEALS Discharge Instructions Instructions: Lyme Disease Test, Knee pain Additional Instructions: At this time x-rays show that you have some degenerative changes to your knee. Small amount of fluid. No evidence of DVT on ultrasound today. You were given a one-time dose of doxycycline to prevent Lyme disease. Please follow-up with your primary care provider or call the department in a couple of days regarding the tick and Lyme panel. Use the hinged knee brace as directed for comfort rest ice compression elevation when sitting or laying down. Follow up with primary care provider in 3-5 days. Return to ED sooner if any worsening or concerns. Please take Tylenol or Ibuprofen with food every 4-6 hours as needed for pain and swelling. Thank you for allowing us to care for you today. Referrals: Carina Davsi [Primary Care Provider] - 1 week Discharge Data Discharge Date/Time-TO BE ENTERED AT DEPARTURE: 11/23/24 12:33 HPI General Mode of arrival: ambulatory . Date/Time Provider Initiated Documentation: 11/23/24 09:52 . Limitations to Documentation: no limitations . Information obtained by: patient, RN notes reviewed and old records reviewed . HPI Narrative: 79 year old female presents to the ER with cc of right knee swelling and tenderness for approximately 6 days. Noticed a tick to her right posterior thigh on Sunday. She reports she pulled it off it was not engorged she describes it as black and brown. She then noticed another tick bite to the distal aspect of her right knee, she then began with right knee pain and swelling that started on Sunday. Only injury noted she reports accidentally running into a corner of a table. Denies any falls. She also endorses fatigue, headache for the last 3 days and neck stiffness. She is concerned for Lyme. She is scheduled for a left knee surgery in January. She does have a past medical history of hypothyroidism, hip replacement, GERD, onychomycosis, hypertension, hyperlipidemia, mitral valve prolapse. She denies any chest pain shortness of breath. Related Data Home Medications ?Medication ?Instructions ?Recorded ?Confirmed acyclovir 800 mg tablet 800 mg PO TID 06/12/23 11/23/24 albuterol sulfate 90 mcg/actuation 2 puff inhalation Q6H PRN 06/12/23 11/23/24 aerosol inhaler (ProAir HFA) cholecalciferol (vitamin D3) 50 3,000 unit PO DAILY 06/12/23 11/23/24 mcg (2,000 unit) capsule cyanocobalamin (vitamin B-12) 1,000 mcg PO DAILY 06/12/23 11/23/24 1,000 mcg capsule epinephrine 0.3 mg/0.3 mL 0.3 mg IM ONCE 06/12/23 11/23/24 injection, auto-injector naproxen 500 mg tablet 500 mg PO BID 06/12/23 11/23/24 omeprazole 20 mg capsule,delayed 20 mg PO DAILY 06/12/23 11/23/24 release sertraline 50 mg tablet 50 mg PO DAILY 06/12/23 11/23/24 clobetasol 0.05 % topical cream 1 applic topical DAILY 02/04/24 11/23/24 estradiol 0.01% (0.1 mg/gram) 1 g vaginal DIRECTED 02/04/24 11/23/24 vaginal cream (Estrace) levothyroxine 50 mcg tablet 50 mcg PO DAILY 02/06/24 11/23/24 tramadol 50 mg tablet 50 mg PO Q8H PRN pain #6 tabs 02/18/24 11/23/24 acetaminophen 500 mg tablet See Rx Instructions .Route 03/28/24 11/23/24 .COMPLEX #90 tabs celecoxib 200 mg capsule See Rx Instructions .Route 10/13/24 11/23/24 .COMPLEX #60 caps Previous Rx's ?Medication ?Instructions ?Recorded tramadol 50 mg tablet 50 mg PO Q8H PRN pain #6 tabs 02/18/24 acetaminophen 500 mg tablet See Rx Instructions .Route 03/28/24 .COMPLEX #90 tabs celecoxib 200 mg capsule See Rx Instructions .Route 10/13/24 .COMPLEX #60 caps Allergies Allergy/AdvReac Type Severity Reaction Status Date / Time Penicillins Allergy Severe Swelling/Ed Verified 11/23/24 09:56 brittany Sulfa (Sulfonamide Allergy Severe Headache Verified 11/23/24 09:56 Antibiotics) iodine Allergy Intermediate Swelling/Ed Verified 11/23/24 09:56 brittany Latex, Natural Rubber Allergy Intermediate Skin Rash Verified 11/23/24 09:56 shellfish derived Allergy Intermediate Swelling/Ed Verified 11/23/24 09:56 brittany perfume AdvReac Severe Wheezing Verified 11/23/24 09:56 bee stings Allergy Severe Anaphylaxis Uncoded 11/23/24 09:56 General Stated Complaint: Cellulitis TOYA: 3 Review of Systems All systems reviewed & are unremarkable except as noted in HPI and below Constitutional Constitutional: Reports as per HPI, Reports fatigue, Reports headache(s) and Reports malaise ENT Ears, Nose, Mouth, and Throat: Reports headache(s) Musculoskeletal Musculoskeletal: Reports as per HPI, Reports abnormal gait, Reports arthralgias and Reports joint swelling Neurologic Neurologic: Reports abnormal gait and Reports headache(s) Endocrine Endocrine: Reports fatigue Exam Narrative Exam Narrative: Constitutional: Alert and oriented x3. Appears stated age. Normal body habitus. Head: Normocephalic, no trauma. Eyes: Pupils PERRL, Red reflex noted, EOM's intact. Eyelids symmetrical without lesions, discharge, or swelling. ENT: Bilateral TM's WNL, External ear normal to inspection, no mastoid TTP, swelling, or erythema, Nasal turbinates WNL, no nasal discharge. Normal dentition, Posterior pharynx WNL, no exudate. Chest: RRR, Normal S1, S2, distal pulses intact. Resp: Lungs clear to auscultation bilaterally, no wheezes, rales, or rhonchi. Abdomen: Soft, non-distended, Normoactive bowel sounds all 4 quads. Musculoskeletal: Uses a cane, stiff gait, RLE mild swelling, no erythema, small punctate possible bite to anterior proximal ricardo, no rash, distal CMS intact. Skin: No suspicious rashes or lesions. Capillary refill less than 2 sec. Neurologic: Cranial nerves II-XII intact. Alert and oriented x 3. Motor: No deficits noted. Sensory: Intact bilaterally all 4 extremities. Hematologic/Lymphatic: No ecchymosis, no lymphadenopathy. Course Vital Signs Vital signs: Vital Signs Temperature 36.7 C 11/23/24 09:53 Pulse 76 11/23/24 09:53 Respiratory Rate 20 11/23/24 09:53 Blood Pressure 194/76 H 11/23/24 09:53 Pulse Oximetry 95 11/23/24 09:53 Temperature 36.7 C 11/23/24 09:53 Temperature Source Oral 11/23/24 09:53 Pulse 76 11/23/24 09:53 Respiratory Rate 20 11/23/24 09:53 Blood Pressure 194/76 H 11/23/24 09:53 Blood Pressure Position Sitting 11/23/24 09:53 Pulse Oximetry 95 11/23/24 09:53 Oxygen Delivery Method Room Air 11/23/24 09:53 Oxygen Flow Rate 0 11/23/24 09:53 Pain Level 5 11/23/24 09:53 Medical Decision Making 79 year old female presents to the ER with cc of right knee swelling and tenderness for approximately 6 days. Noticed a tick to her right posterior thigh on Sunday. She reports she pulled it off it was not engorged she describes it as black and brown. She then noticed another tick bite to the distal aspect of her right knee, she then began with right knee pain and swelling that started on Sunday. Only injury noted she reports accidentally running into a corner of a table. Denies any falls. She also endorses fatigue, headache for the last 3 days and neck stiffness. She is concerned for Lyme. She is scheduled for a left knee surgery in January. She does have a past medical history of hypothyroidism, hip replacement, GERD, onychomycosis, hypertension, hyperlipidemia, mitral valve prolapse. She denies any chest pain shortness of breath. Labs ordered including CBC CMP tick and Lyme panel and x-ray of right knee. POCUS exam performed with Dr. Kearney right lower extremity to rule out DVT all veins were compressible. Will give a hinged knee brace. Discussed giving a one-time dose of doxycycline 200 mg for the tick bite. She verbalized understanding. BMP is still pending at this time due to equipment malfunction it will not be available until Sunday. At this time I do feel it is safe for patient to be discharged home pending the tick and Lyme panel and CMP. Discussed at length with patient the plan of care and follow-up she verbalized understanding. All her questions were answered to the best my ability. This text was generated using [employer] system, please disregard any oddities of phrase or misspellings. Medical Records Medical records reviewed: Yes I reviewed the patient's medical records. Imaging Data Radiologic Study: Imaging: X-Ray Radiologist's impression: Clinical indication: Other: RT knee swelling and pain TECHNIQUE: Imaging protocol: Radiologic exam of the right knee. Views: 3 views. COMPARISON: DX XR KNEE STANDING ALIGNMENT AP LAT [place] SKYLINE BILAT 02/26/2019 11:39 AM FINDINGS: Bones/joints: There is a central osteophyte of the medial femoral condyle. There are mild degenerative changes of the knee joint, predominantly involving the medial joint compartment. Small knee joint effusion. There is a 1 cm osteochondroma of the lateral aspect of the distal femoral metaphysis. Soft tissues: Quadriceps enthesophytes. Vasculature: The vasculature demonstrates diffuse mild atherosclerotic calcification. IMPRESSION: No acute fracture or dislocation. Thank you for allowing us to participate in the care of your patient. Dictated and Authenticated by: Anuj Gutierrez MD Lab Data Lab results reviewed: Yes I reviewed the patient's lab results. Labs: Laboratory Tests Range/Units 11/23/24 11/23/24 10:17 10:23 WBC (4.4-10.8) 10^3/uL 4.20 L RBC (3.93-5.22) 10^6/uL 4.84 Hgb (11.2-15.7) g/dL 13.5 Hct (36.0-46.0) % 41.1 MCV (80-95) fL 85 MCH (27.0-33.0) pg 27.9 MCHC (32.0-36.0) % 32.8 RDW (11.7-14.6) % 15.0 H Plt Count (130-400) 10^3/uL 179 MPV (8.0-11.0) fL 9.4 Immature Gran % % 0.2 Neutrophils % % 64.9 Lymphocytes % % 24.0 Monocytes % % 8.1 Eosinophils % % 2.6 Basophils % % 0.2 Nucleated RBC % (0.0-0.3) % 0.0 Absolute Neutrophils (1.2-6.7) 10^3/uL 2.73 Absolute Lymphocytes (1.2-3.4) 10^3/uL 1.01 L Absolute Monocytes (0.1-0.8) 10^3/uL 0.34 Absolute Eosinophils (0.0-0.7) 10^3/uL 0.11 Absolute Basophils (0.0-0.2) 10^3/uL 0.01 B. divergens/MO-1 PCR Cancelled Babesia duncani (PCR) Cancelled Babesia microti DNA PCR Cancelled E.chaffeensis DNA (PCR) Cancelled E.ewingii/canis DNA PCR Cancelled E.muris eauclairensis (PCR) Cancelled A. phagocytophilum (PCR) Cancelled Blood B. miyamotoi (PCR) Cancelled Quality:SDOH Health Related Social Needs: No Data to Display PFSH All Active Problems (Updated 11/23/24 @ 12:11 by Ana Maria Cruz NP) Tick bite (Acute) Osteoarthritis of right knee (Acute) Status post total replacement of right hip (Acute) Revision acetabular component on 02/05/2024 Previous revision of acetabular component at [facility] 2019 Acute blood loss anemia (Acute) Osteoarthritis of left knee (Acute) Synvisc injection: 06/29/2023 Allergic asthma (Acute) GERD (gastroesophageal reflux disease) (Chronic) Mitral valve prolapse (Acute) History of revision of total hip arthroplasty (Acute) Onychomycosis (Acute) Hyperlipidemia (Acute) Hypertension (Chronic) Right carotid bruit (Acute) Hypothyroidism (Chronic) Chronic pain of left knee (Acute) Medical History Thyroid nodule Diplopia Strabismus Vitamin D deficiency Social History Smoking/Tobacco Use Status: Former Tobacco Use Quit Date: 07/16/64 Smoking risk assessment performed?: Yes Alcohol Intake: never Drug use: Rarely Substance use type: does not use Housing: house Do you feel safe at home: Yes Do you feel safe in your relationship?: Yes
[2024-11-23 10:34] LABS: Abs Immature Grans 0.01 10^3/uL (0.0-0.06); Absolute Basophil Count 0.01 10^3/uL (0.0-0.2); Absolute Eosinophil Count 0.11 10^3/uL (0.0-0.7); Absolute Lymphocyte Count 1.01 10^3/uL (1.2-3.4); Absolute Monocyte Count 0.34 10^3/uL (0.1-0.8); Basophils % 0.2 %; Eosinophils % 2.6 %; HCT 41.1 % (36.0-46.0); HGB 13.5 g/dL (11.2-15.7); Immature Grans % 0.2 %; MCH 27.9 pg (27.0-33.0); MCHC 32.8 % (32.0-36.0); MCV 85 fL (80-95); MPV 9.4 fL (8.0-11.0); Monocytes % 8.1 %; Neutrophils % 64.9 %; Platelet Count 179 10^3/uL (130-400); RBC 4.84 10^6/uL (3.93-5.22); RDW-SD 46.5 fL
[2024-11-23 10:55] VITALS: BP 147/88
--- NOTE | 2024-11-23 10:55 | DI.VRAD_ITS ---
PROCEDURE INFORMATION: Exam: XR Right Knee Exam date and time: 11/23/2024 10:38 AM Age: 79 years old Clinical indication: Other: RT knee swelling and pain TECHNIQUE: Imaging protocol: Radiologic exam of the right knee. Views: 3 views. COMPARISON: DX XR KNEE STANDING ALIGNMENT AP LAT [place] SKYLINE BILAT 02/26/2019 11:39 AM FINDINGS: Bones/joints: There is a central osteophyte of the medial femoral condyle. There are mild degenerative changes of the knee joint, predominantly involving the medial joint compartment. Small knee joint effusion. There is a 1 cm osteochondroma of the lateral aspect of the distal femoral metaphysis. Soft tissues: Quadriceps enthesophytes. Vasculature: The vasculature demonstrates diffuse mild atherosclerotic calcification. IMPRESSION: No acute fracture or dislocation. Dictated and Authenticated by: Anuj Gutierrez MD. Orderin Nancy Rodgers MD
[2024-11-23 11:15] LABS: Absolute Neutrophil Count 2.73 10^3/uL (1.2-6.7)
[2024-11-23] MEDS: Doxycycline Hyclate 100 MG CAP 200 MG PO (12:01)
--- NOTE | 2024-11-23 12:08 | W.EDPROG ---
Date of service: 11/23/24 Time of Service: 12:08 Medical Decision Making I completed a bedside ultrasound on this patient in conjunction with her advanced practice provider. Limited right lower extremity [id number] ultrasound negative for DVT. Quality:SDOH Health Related Social Needs: No Data to Display Discharge Plan Discharge Details Chief Complaint: InsectBite Primary Care Provider: Carina Davis ED Provider: Ana Maria Cruz Home Meds and New Rx's Prescriptions: No Action albuterol sulfate [ProAir HFA] 90 mcg/actuation HFA aerosol inhaler 2 puff inhalation Q6H PRN epinephrine 0.3 mg/0.3 mL auto-injector 0.3 mg IM ONCE Rx Instructions: as a single dose; may repeat once acyclovir 800 mg tablet 800 mg PO TID Patient Comments: uses PRN for cold sores cholecalciferol (vitamin D3) 50 mcg (2,000 unit) capsule 3,000 unit PO DAILY naproxen 500 mg tablet 500 mg PO BID omeprazole 20 mg capsule,delayed release(DR/EC) 20 mg PO DAILY sertraline 50 mg tablet 50 mg PO DAILY cyanocobalamin (vitamin B-12) 1,000 mcg capsule 1,000 mcg PO DAILY tramadol 50 mg tablet 50 mg PO Q8H PRN (Reason: pain) Qty: 6 0RF Rx Instructions: Take one tablet up to every 8 hours as needed acetaminophen 500 mg tablet See Rx Instructions .ROUTE .COMPLEX Qty: 90 3RF Dose Instruction: TAKE TWO TABLETS BY MOUTH EVERY 8 HOURS NEEDED FOR PAIN Rx Instructions: TAKE TWO TABLETS BY MOUTH EVERY 8 HOURS NEEDED FOR PAIN celecoxib 200 mg capsule See Rx Instructions .ROUTE .COMPLEX Qty: 60 1RF Dose Instruction: TAKE ONE CAPSULE BY MOUTH TWICE A DAY NEEDED FOR PAIN Rx Instructions: TAKE ONE CAPSULE BY MOUTH TWICE A DAY NEEDED FOR PAIN clobetasol 0.05 % cream 1 applic topical DAILY estradiol [Estrace] 0.01 % (0.1 mg/gram) cream 1 g vaginal DIRECTED Patient Comments: hasn't been using recently Rx Instructions: for 14 days levothyroxine 50 mcg tablet 50 mcg PO DAILY Patient Comments: TAKE ONE TABLET BY MOUTH EVERY DAY BEFORE MEALS POCUS Exam (ED) Limited Vascular Exam DATE OF EXAM: 11/23/24 TIME OF EXAM: 12:09 PROVIDER THAT PERFORMED THE STUDY: Russell Kearney IS THIS A REPEAT EXAM DURING THIS ENCOUNTER: No Vascular Exam: Right lower extremity REASON FOR EXAM: Right lower extremity pain Exam Complete DIFFERENTIAL DIAGNOSES: Negative right lower extremity [id number] DVT study
[2024-11-24 10:39] LABS: BUN 18 mg/dL (7-25); CREATININE 0.7 mg/dL (0.60-1.20); Calcium 9.8 mg/dL (8.6-10.3); Estimated GFR 89.02 (mL/min/1.73m2); Glucose 97 mg/dL (70-109)
[2024-11-24 10:40] LABS: Albumin 4.8 g/dL (3.5-5.7); Bilirubin, Total 0.5 mg/dL (0.3-1.0); Potassium 4.1 mmol/L (3.5-5.1); Sodium 139 mmol/L (136-145); Total Protein 7.6 g/dL (6.4-8.9)
[2024-11-24 10:41] LABS: Anion Gap 10 (3.0-12.0); CO2 24 mmol/L (21.0-31.0); Chloride 105 mmol/L (98-107)
[2024-11-24 10:42] LABS: Alkaline Phosphatase 39 (34-104)
[2024-11-24 10:45] LABS: AST 17 (13-39)
[2024-11-24 10:46] LABS: ALT 17 (7-52)
[2024-11-24 11:02] LABS: Lyme Ab w Rflx to Lyme Confirm Negative (Negative)
[2024-11-25 17:18] LABS: Anaplasma phagocytophilum Negative (Negative); B. miyamotoi PCR Negative (Negative); Babesia divergens/MO-1 Negative (Negative); Babesia duncani Negative (Negative); Babesia microti Negative (Negative); Ehrlichia chaffeensis Negative (Negative); Ehrlichia ewingii/canis Negative (Negative); Ehrlichia muris eauclairensis Negative (Negative)
== END 2024-11-23 12:33 | disposition home or self-care (01) ==
PROVIDERS: Emergency Provider Registered Nurse Emergency; PCP Physician Assistant
DX: S70.361A Insect bite (nonvenomous), right thigh, initial encounter (principal); W57.XXXA Bitten or stung by nonvenomous insect and other nonvenomous arthropods, initial encounter; M17.11 Unilateral primary osteoarthritis, right knee; I10 Essential (primary) hypertension; R51.9 Headache, unspecified; R53.83 Other fatigue
CPT/HCPCS: 99283; 99284; 36415; 00123; 73562; 80053; 87798; 93971; 85025; 86618

== ENCOUNTER 2024-12-16 01:07 | Outpatient (CLI) | payer MEDICARE, SELFPAY ==
--- NOTE | 2024-12-16 | DI.US_ITS ---
Exam(s) US THYROID EXAM: US THYROID CLINICAL HISTORY: THYROID NODULE, E04.1, REASSESS RT THYROID NODULE FOR GROWTH. TECHNIQUE: Ultrasound thyroid performed using standard protocol. COMPARISON: US US THYROID from FINDINGS: RIGHT THYROID LOBE: Measures 1.7 cm AP x 1.8 cm wide x 3.0 cm craniocaudal There is a solitary solid nodule in the right lobe again noted This nodule presently measures 1.7 x 1.2 x 1.3 cm. Grading of this nodule is as follows Composition: Solid-2 points Echogenicity: Isoechoic to surrounding parenchyma-1 point Shape: Slightly wider than taller in the transverse plane 0 points Margin: Smooth- 0 points Echogenic Foci: There appear to be a few tiny punctate echogenic foci-3 points Total Points for this nodule: 6 ACR Ti-Rads Category: TR4 This TR 4 level nodule qualifies for ultrasound-guided FNA as it measures slightly greater than 1.5 c m. ISTHMUS: Normal thickness. There are no nodules in the isthmus. LEFT THYROID LOBE: Measures 1.3 cm AP x 1.5 wide x 3.8 cm craniocaudal There is a solitary small 6 x 3 x 7 mm nodule with characteristics as follows Composition: Solid-2 points Echogenicity: Hypoechoic-2 points Shape: Wider than taller in the transverse plane-0 points Margin: Smooth-0 points Echogenic Foci: None-0 points Total points for this nodule: 4 ACR Ti-Rads Category: 4 This TR 4 level does not require ultrasound-guided FNA as it measures less than 1.5 cm. LYMPH NODES: There is no significant adenopathy. IMPRESSION: 1. On today's study the 1.7 x 1.2 x 1.3 cm solid nodule in the right thyroid lobe qualifies as a TR 4 level nodule which should undergo ultrasound-guided FNA as it measures slightly greater than 1.5 cm. 2. Other findings as above which do not require biopsy. 3. There is no significant lymphadenopathy. DATA REPOSITORY:
== END 2024-12-16 01:27 ==
LOC: DI 01:07
PROVIDERS: PCP Physician Assistant; Visit Provider Internal Medicine
DX: E04.1 Nontoxic single thyroid nodule (principal)
CPT/HCPCS: 76536

== ENCOUNTER 2024-12-24 19:18 | Outpatient (REF) | payer MEDICARE, SELFPAY ==
[2024-12-24 22:08] LABS: TSH (W/Ref FT4) 1.47 uIU/mL (0.36-3.74); Vitamin D 25 Total 30 ng/mL (30-100)
== END 2024-12-24 19:19 | disposition home or self-care (01) ==
LOC: NCHCN 19:18
PROVIDERS: PCP Physician Assistant; Visit Provider Physician Assistant
DX: E03.9 Hypothyroidism, unspecified (principal); E55.9 Vitamin D deficiency, unspecified
CPT/HCPCS: 82306; 84443

== ENCOUNTER 2025-01-05 02:57 | Outpatient (CLI) | payer MEDICARE, SELFPAY ==
[2025-01-05 18:31] LABS: HCT 36.9 % (36.0-46.0); MCH 28.1 pg (27.0-33.0); MCHC 32.5 % (32.0-36.0); MCV 86 fL (80-95); MPV 9.6 fL (8.0-11.0); Platelet Count 181 10^3/uL (130-400); RBC 4.27 10^6/uL (3.93-5.22); RDW 14.5 % (11.7-14.6); RDW-SD 45.9 fL; WBC 4.85 10^3/uL (4.4-10.8)
[2025-01-05 18:37] LABS: Anion Gap 10.8 mmol/L (3-11); BUN 24 mg/dL (7-18); CO2 25.2 mmol/L (21.0-32.0); CREATININE 0.8 mg/dL (0.55-1.02); Calcium 9.1 mg/dL (8.5-10.1); Chloride 106 mmol/L (98-107); Estimated GFR 75.84 (mL/min/1.73m2); Glucose 102 mg/dL (74-106); Potassium 4.4 mmol/L (3.5-5.1); Sodium 142 mmol/L (136-145)
== END 2025-01-05 02:58 | disposition home or self-care (01) ==
LOC: LBO 02:57 → LBN 18:06
PROVIDERS: PCP Physician Assistant; Visit Provider Student in an Organized Health Care Education/Training Program
DX: M17.12 Unilateral primary osteoarthritis, left knee (principal); Z01.818 Encounter for other preprocedural examination
CPT/HCPCS: 80048; 85027

== ENCOUNTER 2025-01-14 15:40 | Observation (INO) | payer MEDICARE, SELFPAY ==
[2025-01-14] VITALS (18 sets, daily range): BP systolic 116–161; BP diastolic 52–81; PULSE 65–76; RESP 10–21; TEMP 36.2–36.9; O2SAT 92–98; BMI 31.0
[2025-01-14] MEDS: Gabapentin 300 MG CAP PO ×2 (12:10→21:06)
[2025-01-14] MEDS: Acetaminophen 500 MG TAB 1000 MG PO ×2 (12:10→21:05)
[2025-01-14] MEDS: Celecoxib 200 MG CAP 400 MG PO (12:10)
--- NOTE | 2025-01-14 12:14 | ANES.PREOP_ITS ---
General Info Date of Service Date Performed: 01/14/25 Height: 5 ft 1.5 in Weight: 75.8 kg Body Mass Index (BMI): 31.0 Surgical Procedure: Operation Date: 01/14/25 14:25 Proposed Procedure Side Surgeon p Knee Total Arthroplasty Left Josias Rivas MD Meds Allergies and Home Medications Allergies Allergy/AdvReac Type Severity Reaction Status Date / Time Penicillins Allergy Severe Swelling/Ed Verified 01/14/25 12:03 brittany Sulfa (Sulfonamide Allergy Severe Headache Verified 01/14/25 12:03 Antibiotics) iodine Allergy Intermediate Swelling/Ed Verified 01/14/25 12:03 brittany Latex, Natural Rubber Allergy Intermediate Skin Rash Verified 01/14/25 12:03 shellfish derived Allergy Intermediate Swelling/Ed Verified 01/14/25 12:03 brittany perfume AdvReac Severe Wheezing Verified 01/14/25 12:03 bee stings Allergy Severe Anaphylaxis Uncoded 01/14/25 12:03 Home Medication ?Medication ?Instructions ?Recorded acyclovir 800 mg tablet 800 mg PO TID PRN 06/12/23 albuterol sulfate 90 mcg/actuation 2 puff inhalation Q 6H PRN 06/12/23 aerosol inhaler (ProAir HFA) cholecalciferol (vitamin D3) 50 3,000 unit PO DAILY mcg (2,000 unit) capsule cyanocobalamin (vitamin B-12) 1,000 mcg PO DAILY 06/12 1,000 mcg capsule epinephrine 0.3 mg/0.3 mL 0.3 mg IM ONCE 06/12/23 injection, auto-injector naproxen 500 mg tablet 500 mg PO BID 06/12/23 Held on 01/14/25. Instructions: taking tylenol omeprazole 20 mg capsule,delayed 20 mg PO DAILY release sertraline 50 mg tablet 50 mg PO DAILY 06/12/23 clobetasol 0.05 % topical cream 1 applic topical DAILY 02/04/24 estradiol 0.01% (0.1 mg/gram) 1 g vaginal DIRECTED 02/04/24 vaginal cream (Estrace) Held on 01/14/25. Instructions: stopped because she was taking too many drugs levothyroxine 50 mcg tablet 50 mcg PO DAILY 02/06/24 acetaminophen 500 mg tablet See Rx Instructions .Route 09/13/24 .COMPLEX #90 tabs celecoxib 200 mg capsule See Rx Instructions .Route 0 10/13/24 .COMPLEX #60 caps Current Visit Medications: Current Medications Generic Name Dose Route Start Last Admin Trade Name Hipolito PRN Reason Stop Dose Admin Acetaminophen 1,000 mg 01/14/25 06:00 01/14/25 12:10 Acetaminophen 500 Mg Tab PO 01/14/25 23:59 1,000 mg PREOP RENETTA Administration Acetaminophen 1,000 mg 01/14/25 08:30 Acetaminophen 500 Mg Tab PO 02/13/25 08:29 TID RENETTA Albuterol Sulfate 2 puff 01/14/25 07:39 Albuterol Hfa 8 Gm 60 Puff Inh IH 02/13/25 07:38 Q6H PRN Aspirin 81 mg 01/14/25 20:00 Aspirin E.C. 81 Mg Tabec PO 02/13/25 19:59 BID RENETTA Celecoxib 400 mg 01/14/25 06:00 01/14/25 12:10 Celecoxib 200 Mg Cap PO 01/14/25 23:59 400 mg PREOP RENETTA Administration Celecoxib 0 mg 01/14/25 08:00 Celecoxib 200 Mg Cap PO 02/13/25 07:59 .COMPLEX RENETTA Clobetasol Propionate gm 01/14/25 08:30 Clobetasol 0.05% Cream 15 Gm Tube TP 02/13/25 08:29 DAILY RENETTA Dexamethasone 4 mg 01/14/25 08:30 Dexamethasone 4 Mg Tab PO 01/15/25 08:31 DAILY RENETTA Docusate Sodium 100 mg 01/14/25 07:40 Docusate Sodium 100 Mg Cap PO 02/13/25 07:39 BID PRN PRN Constipation Epinephrine 0.3 mg 01/14/25 08:00 Epinephrine 0.3 Mg Kit IM 02/13/25 07:59 ONCE RENETTA Gabapentin 300 mg 01/14/25 06:00 01/14/25 12:10 Gabapentin 300 Mg Cap PO 01/14/25 23:59 300 mg PREOP RENETTA Administration Gabapentin 300 mg 01/14/25 20:00 Gabapentin 300 Mg Cap PO 02/13/25 19:59 HS RENETTA Ringer's Solution 1,000 mls @ 80 mls/hr 01/14/25 06:00 IV 01/14/25 23:59 INFUSION RENETTA Cefazolin Sodium/Dextrose 2 gm in 50 mls @ 100 mls/hr 01/14/25 06:00 Ancef Duplex IVPB 01/14/25 23:59 PREOP RENETAT Tranexamic Acid/Sodium Chloride 1,000 mg in 100 mls @ 600 mls/hr 01/14/25 06:00 IVPB 01/14/25 23:59 PREOP RENETTA Cefazolin Sodium/Dextrose 1 gm in 50 mls @ 100 mls/hr 01/14/25 12:00 Ancef Duplex IVPB 01/15/25 04:29 Q8H RENETTA IV Miscellaneous Supplies 1 each 01/14/25 06:00 Iv Access IV 01/14/25 23:59 DIRECTED RENETTA Levothyroxine Sodium 50 mcg 01/14/25 08:30 Levothyroxine 50 Mcg Tab PO 02/13/25 08:29 DAILY RENETTA Non-Formulary Medication 800 mg 01/14/25 07:39 Acyclovir PO TID PRN Non-Formulary Medication 3,000 unit 01/14/25 08:30 Cholecalciferol (Vitamin D3) PO 02/13/25 08:29 DAILY COUNTS INCLUDE 234 BEDS AT THE [facility] Non-Formulary Medication 1,000 mcg 01/14/25 08:30 Cyanocobalamin (Vitamin B-12) PO 02/13/25 08:29 DAILY COUNTS INCLUDE 234 BEDS AT THE [facility] Non-Formulary Medication 1 gm 01/14/25 07:45 Estradiol [Estrace] VG 02/13/25 07:44 DIRECTED RENETTA Omeprazole 20 mg 01/14/25 08:30 Omeprazole 20 Mg Capcr PO 02/13/25 08:29 DAILY COUNTS INCLUDE 234 BEDS AT THE [facility] Ondansetron HCl 4 mg 01/14/25 07:40 Ondansetron 4 Mg/2 Ml Vial IVP 02/13/25 07:39 Q6H PRN PRN Nausea Oxycodone HCl 0 mg 01/14/25 07:40 Oxycodone 5 Mg Tab PO 02/13/25 07:39 Q3H PRN PRN Pain Polyethylene Glycol 17 gm 01/14/25 07:40 Polyethylene Glycol 3350 17 Gm Packet PO 02/13/25 07:39 BID PRN PRN Constipation Sertraline HCl 50 mg 01/14/25 08:30 Sertraline 50 Mg Tab PO 02/13/25 08:29 DAILY COUNTS INCLUDE 234 BEDS AT THE [facility] Sodium Chloride 0 ml 01/14/25 06:00 Normal Saline Flush 10 Ml Syr IV 01/14/25 23:59 PRN PRN Sodium Chloride 0 ml 01/14/25 06:00 Normal Saline 10 Ml Vial IJ 01/14/25 23:59 DIRECTED PRN Sterile Water 0 ml 01/14/25 06:00 Water,Injection,Sterile 10 Ml Vial IJ 01/14/25 23:59 DIRECTED PRN Tranexamic Acid 1,300 mg 01/14/25 07:40 Tranexamic Acid 650 Mg Tab PO 01/14/25 07:41 ONCE ONE PFSH Active Problems Active Problems: Problem Status Onset Code Status post total replacement of right hip Acute Z96.641 Acute blood loss anemia Acute D62 Prosthetic hip implant failure Resolved T84.018A, Z96.649 Osteoarthritis of left knee Acute M17.12 Allergic asthma Acute J45.909 GERD (gastroesophageal reflux disease) Chronic K21.9 Mitral valve prolapse Acute I34.1 History of revision of total hip arthroplasty Acute Z96.649 Onychomycosis Acute B35.1 Hyperlipidemia Acute E78.5 Hypertension Chronic I10 Right carotid bruit Acute R09.89 Hypothyroidism Chronic E03.9 Chronic pain of left knee Acute M25.562, G89.29 Medical History Medical History Thyroid nodule Diplopia Strabismus Vitamin D deficiency Surgical History Surgical History History of eye surgery for double vision History of esophagogastroduodenoscopy (EGD) History of colonoscopy History of tonsillectomy History of bunionectomy Hx of arthroscopy of left knee History of cataract extraction History of wisdom tooth extraction Tobacco Smoking/Tobacco Use Status: Former Tobacco Use Alcohol Alcohol Intake: never Substance Use Substance use: Rarely Substance use type: does not use Vital Signs and Lab Results Vital Signs Most Recent Vital Signs in EMR: Most Recent Vital Signs Temp Pulse Resp BP Pulse Ox 36.3 C L 76 16 161/81 H 96 01/14/25 11:35 01/14/25 11:35 01/14/25 11:35 01/14/25 11:35 01/14/25 11:35 Lab Results Complete Blood Count: WBC, (4.4-10.8) 4.85 10^3/uL 01/05/25, 15:05 RBC, (3.93-5.22) 4.27 10^6/uL 01/05/25, 15:05 Hgb, (11.2-15.7) 12.0 g/dL 01/05/25, 15:05 Hct, (36.0-46.0) 36.9 % 01/05/25, 15:05 Plt Count, (130-400) 181 10^3/uL 01/05/25, 15:05 Complete Metabolic Panel: Sodium, (136-145) 142 mmol/L 01/05/25, 15:05 Potassium, (3.5-5.1) 4.4 mmol/L 01/05/25, 15:05 Chloride, (98-107) 106 mmol/L 01/05/25, 15:05 Carbon Dioxide, (21.0-32.0) 25.2 mmol/L 01/05/25, 15 :05 BUN, (7-18) 24 mg/dL H 01/05/25, 15:05 Creatinine, (0.55-1.02) 0.8 mg/dL 01/05/25, 15:05 Est GFR (CKD-EPI 2020), (mL/min/1.73m2) 75.84 01/05/25, 15:05 Calcium, (8.5-10.1) 9.1 mg/dL 01/05/25, 15:05 Glucose, (74-106) 102 mg/dL 01/05/25, 15:05 Thyroid Panel: TSH, (0.36-3.74) 1.47 uIU/mL 12/24/24, 16:10 Imaging and Studies Imaging and Studies Study information below may be from another EMR and interpreted by another provider. Please see original notes in EMR for more complete details. EKG Summary: 02/05/24 Conclusion Sinus rhythm...normal P axis, V-rate 60- 99 Normal Electrocardiogram Echocardiogram Summary: Conclusion Normal left ventricular systolic function. EF is 65%. No segmental wall motion abnormalities are noted Normal right ventricular size and function Both atria are normal in size Aortic valve is sclerotic without stenosis or regurgitation There is no additional significant valvular disease Estimated right ventricular systolic pressure is 26 mmHg 01/29/24 Carotid Artery Summary:: IMPRESSION: Mild plaque seen bilaterally in the level of the carotid bulbs and proximal internal carotid arteries, but without elevated velocities. This indicates the amount of stenosis is less than 50 percent. Visually I estimate the amount of stenosis at approximately 20 percent bilaterally. Antegrade flow is demonstrated in both vertebral arteries in the neck 01/16/24 Anesthesia Assessment and Plan Anesthesia History Personal History: No History of Anesthesia Complications Family History: Family History Unknown Exercise Tolerance Exercise Tolerance: Metabolic Equivalents<4 Pertinent Negatives Pertinent Negatives: No Symptoms of GERD (well-controlled), No Major Cardiovascular Symptoms or Complaints and No Major Pulmonary Symptoms or Complaints Cardiac & Pulmonary Exam Cardiac Exam: Normal S1/S2 Heart Sounds Pulmonary Exam: Clear Bilateral Breath Sounds Implantable Cardiac Device Does patient have a Pacemaker or an ICD?: No Airway Exam Known Difficult Airway: No Mallampati Class: 2 Mouth Opening: Normal (> 3cm) Thyromental Distance: Greater than 3 cm Neck Range of Motion: Full ROM Neck Circumference: Normal Teeth Condition: Normal Dentition ASA Classification ASA Score: ASA 2 Emergency Case?: No NPO Status NPO Status: NPO Clears >2 hours, Solids >8 hours Anesthesia Plan Resuscitation Status: Full Code Anesthesia Technique: Spinal Anesthesia Airway Planned: Natural Airway Pain Management: Surgeon and patient request nerve block Monitors Used: Standard Monitors
[2025-01-14] MEDS: Lactated Ringers 1,000 ML 80 ML IV (12:30)
--- NOTE | 2025-01-14 12:42 | W.ANESNERVE ---
Nerve Block Single Injection Procedure Date and Time Date Performed: 01/14/25 Procedure Start: 12:32 Location Where Procedure Performed Procedure Location: Day Surgery Unit Reason Performed: Postoperative Analgesia Requesting Provider: Josias Rivas Timeout Performed Timeout Performed: Yes Monitoring Used ECG, Blood Pressure, SpO2 and See EMR for corresponding vital signs Sterility Sterility: Hand Hygiene, Surgical Cap, Surgical Mask, Sterile Gloves, Sterile Drape/Sheet and Chlorhexidine Sedation Given During Procedure Sedation Given (Indicate Dose Given): Versed IV Dose:: 2 mg Patient Mental Status Patient Mental Status: Sedate with meaningful communication Nerve Block 1st Nerve Block: Laterality: Left Block Type: Adductor Canal Ultrasound Image Saved?: Yes Needle / Catheter Used: 100mm SonoPlex II Local Anesthetic Bolus (Indicate Dose Given): Lidocaine used for local infiltration of skin, Injected in 3-5ml increments after negative blood aspiration, Bupivacaine 0.25% Dose:: 10 ml and Exparel Dose:: 10 ml Additives (Indicate Dose Given): None Ultrasound: Sterile probe cover and gel used Nerve Stimulator: Supplement to Ultrasound use and No twitch or parasthesia noted < 0.5 mA Paresthesia: None Procedure Tolerated: No Complications and Patient tolerated well Procedure Outcome: Successful Performed By: Nikki Bower
[2025-01-14] MEDS: TRANEXAMIC ACID/SOD. CHL. 1,000 MG/100 ML BAG 600 MG IVPB (13:06)
--- NOTE | 2025-01-14 15:15 | W.ANESPOSTOP ---
Postoperative Evaluation Date, Time and Location Date Performed: 01/14/25 Time Performed: 15:15 Patient Location: PACU Vital Signs Most Recent Imported Vital Signs: Most Recent Vital Signs Temp Pulse Resp BP Pulse Ox 36.9 C 69 19 161/58 H 96 01/14/25 15:03 01/14/25 15:11 01/14/25 15:11 01/14/25 15:11 01/14/25 15:11 Pain Score Most Recent Pain Score: Most Recent Pain Score Pain Level 0 01/14/25 15:03 Assessment Mental Status: Awake (Alert & Oriented to Patient Baseline) Airway and Respiratory Function: Patent airway with normal (patient baseline) respiratory exam Cardiovascular Function: Hemodynamically Stable Hydration Status: Adequately Hydrated Nausea & Vomiting: No Nausea or Vomiting Pain: Pt. Denies Any Pain Peripheral Nerve Block: Regional nerve block not resolved at time of post operative discharge Postoperative Comments:: Can move toes, spinal wearing off appropriately. Nursing aware to inform us of any concerns.
--- NOTE | 2025-01-14 16:04 | W.PM.OP ---
Operative Note Operative Note PRE-OP DIAGNOSIS: Left Knee Osteoarthritis POST-OP DIAGNOSIS: same PROCEDURE: Left Total Knee Replacement SURGEON: Josias Rivas CHEMICAL ECONOMIST: Kayleigh Aburto ANESTHESIA TYPE: Spinal Refer to Anesthesia Record ESTIMATED BLOOD LOSS: 100 PATHOLOGY: none sent TOURNIQUET TIME: 0 COMPLICATIONS: None Patient was transported to: PACU Patient's condition: stable Implants: 1. Depuy Attune Cementless Cruciate Retaining Femoral Component, Size 5 2. Depuy Attune Cementless Fixed Bearing Tibial Component, Size 5 3. Depuy Attune 5x6mm CR/FB Poly 4. Depuy Attune Patellar Component, Size 38mm Indications: I have seen Alyssa in clinic for symptoms of knee arthritis, confirmed with radiographic findings. She has exhausted nonoperative methods and was having significant limitations in daily function and desired better function and less pain. I discussed the technical details of a knee replacement. I explained the risks of the procedure to include, but not limited to, bleeding, infection, pain, stiffness, fracture, damage to nerves and vessels, damage to muscles and tendons, loosening, need for repeat procedure, blood clot and cardiopulmonary demise. Despite these risks, Alyssa elected to proceed. Findings: There was significant signs of arthritis throughout the knee. Procedure Description: Alyssa was greeted in the preoperative holding area where the correct side was identified and marked. The consent was reviewed with the patient and signed. The history and physical was updated. All questions were answered. Preoperative medications were administered: Acetaminophen 1000mg, Celebrex 400mg, and Gabapentin 300mg. An adductor canal block was then administered by the anesthesia team in the DSU. She was taken back to the operating room. A spinal anesthestic was then administered. The patient was placed into the supine position on the operating room table. Posts were placed for positioning during the procedure. All bony prominences were well padded. Prophylactic antibiotics in the form of Cefazolin were administered. 1g of Tranxemic Acid was given intravenously within 30 minutes of incision. The left leg was then prepped with Chloraprep and draped in a standard fashion with impervious stockinette. A second prep with Chloraprep was performed prior to application of Iodine impregnated skin protection. A timeout to confirm correct identity, side and site, procedure, allergies, anesthesia, and medical concerns was performed. With the knee in some flexion, a midline incision was made overlying the knee. Full thickness skin flaps were raised once the extensor mechanism was encountered. These were raised medially and laterally. Any bleeding was controlled with electrocautery. Once the extensor mechanism was fully exposed, a medial parapatellar arthrotomy was performed in a flexed position. All bleeding from the arthrotomy and the geniculate arteries was coagulated. A medial subperiosteal peel was performed with electrocautery to the midcoronal plane. The fat pad was removed while keeping the patellar tendon protected. The anterior distal femur synovium was removed for later visualization. The ACL and PCL were resected and the anterior horn of the lateral meniscus was transected. The knee was then flexed with the patella everted. Large osteophytes from the tibia were removed. Large osteophytes from the femur were removed. Using a step drill, and based on preoperative templating, the femoral canal was entered. This was done with a step drill without any difficulty. The intramedullary distal femoral cut guide was inserted, set to a 5 degree valgus cut and 9mm cut thickness. The distal femoral cut guide was then held in position and pinned. With the soft tissues protected, the distal cut was performed. This was passed over a few times to ensure a planar cut. I then turned attention to the tibia. The extramedullary guide was placed onto the leg. The distal aspect was slid medial to adjust for position of center of ankle and stay in line with shaft of the tibia. Approximately 5 degrees of posterior slope was kept in the proximal cutting guide. The center of the guide was aligned with the PCL. The stylus was used to assess cut thickness. The medial side, most involved side, was set for a 4mm cut. This was then held in position and pinned into place with 2 additional pins and a cross pin for stability. The medial and lateral collateral ligaments were protected and the cut was performed. With this completed, it was assessed and noted to be of appropriate dimensions. The guide was removed. A spacer block was inserted and the knee was brought into extension. The 6mm spacer block provided full extension, without hyperextension and with stability of both the medial and lateral collateral ligaments was assessed. The pins from the femur and the tibia were then removed. The distal femur was then sized. The anterior stylus was placed onto the lateral ridge of the anterior femur. This indicated a size 5 femur. The external rotation of the guide was adjusted to 3 degrees to match the epicondylar axis, perpendicular to [place]?s line. The 4-in-1 cutting guide was the placed. The posterior medial femur cut was evaluated and appeared of good thickness. The spacer block was inserted underneath the cutting guide and stability was confirmed in 90 degrees of flexion. An jamshid wing was used to confirm appropriate position of the anterior cut to avoid notching. This cutting guide was ensured to be flush on the cut surface and then pinned into place with headed pins. While protecting the soft tissues, quad tendon, and collateral ligaments, the anterior and posterior cuts were performed with a saw. The central two pins were removed and the posterior and anterior chamfers were cut next. The notch-cutting guide was placed. This was pinned to lateralize the femoral component as much as possible while keeping it flush on the cut surface. This was then pinned into position. A reciprocating saw was used to make the notch cut. A rasp smoothed the cut surfaces. The medial and lateral menisci were removed. A trial femoral component was then inserted, impacted down to the cut surfaces, and the lug holes were drilled. A provisional trial tibial component was placed and the knee was brought through range of motion. There was noted to be excellent extension and flexion. There was no significant instability. The patella was tracking without thumbs. A size 6mm polyethylene component provided the best range of motion and stability with less than 2mm gapping with medial and lateral stress and full extension without significant hyperextension. The tibial cut surface was fully exposed. The tibia was then sized as a 5. The tibia had been previously marked during trialing to correspond to the center of the tibial component to help with rotation. The trial was aligned to this kayleigh, approximately rotated to the medial 1/3rd of the tibial tubercle. The trial was pinned into place. The tibia was prepared with a reamer and a keel punch and lug holes. The knee was then brought into extension and the patella was measured as 23mm. Using the patellar clamp and cut guide, this was resected to a flat surface with at least 13mm of thickness remaining. The size 38 patella fit the best. This was oriented and then clamped into position. The lugs were drilled. The trial components were removed. The final components were opened on the back table. The periosteal and capsular tissues, especially posteriorly, around the knee were then systematically injected with a periarticular cocktail consisting of 246mg of Ropivacaine, 0.5mg of Epinephrine, 0.08mg of Clonidine, and 30mg of Ketorolac, diluted to 100cc. On the back table, with the implants opened. The cement was mixed. One batch of high viscosity cement was prepared with vacuum assistance. After the cement was ready a small amount was placed on the cut surface of the patella and the patellar button was clamped into position and held. The cementless knee components were placed. Starting with the tibial component, the tibia was subluxed anteriorly and the lug holes of the component were lined up. The tibia was then impacted with an impactor and mallet until the tibial component was in contact with the tibia. The final polyethylene component was inserted. Then, the femoral component was inserted. The lug holes were aligned and the component was impacted into position. The knee was irrigated with Surgiphor Betadine solution. This was allowed to sit in the knee for 3 minutes and then it was irrigated out with saline. After the cement had finally cured, approximately 15min, the clamp was removed from the patella and the knee was taken through range of motion. The patella was tracking with a no-thumbs technique. The capsule was then reapproximated with a No. 1 Vicryl at multiple locations. The capsule was finally closed with a No. 2 Stratafix, barbed suture. Deep tissues were then reapproximated with 0 Vicryl and 2-0 Vicryl. The skin was closed with a running 3-0 Monocryl in a subcuticular fashion. This was reinforced with skin glue. A Mepilex silver dressing was applied along with a [id number] BRAYDON wrap. A CryoCuff was applied. Alyssa was transferred to the hospital bed without difficulty an suffering no apparent complication. She has a good prognosis. Physical therapy will start today and without restrictions, weight-bearing as tolerated. Aspirin 81mg BID will be used for DVT prophylaxis. Date of Procedure: 01/14/25
--- NOTE | 2025-01-14 16:40 | IN_ITS ---
PT Notes Physical Therapy Inpatient Initial Evaluation Date: 01/16/2025 Referring Doctor: HUI Downey PT Orders: PT CONSULT: Eval/Treat Precautions: Fall. Standard. WBAT through the left LE with AD. Patient Profile/Admitting Diagnosis: Alyssa is a 79-year-old female with degenerative joint disease of the left knee and status post left total knee arthroplasty on postoperative day 0. PMHX: All Active Problems (Updated 12/24/24 @ 00:03 by HCECO FRANCO) Status post total replacement of right hip (Acute) Revision acetabular component on 02/05/2024 Previous revision [place] acetabular component [place] [facility] [place] Acute blood loss anemia (Acute) Osteoarthritis of left knee (Acute) Synvisc injection: 06/29/2023llergic asthma (Acute) GERD (gastroesophageal reflux disease) (Chronic) Mitral valve prolapse (Acute) History of revision of total hip arthroplasty (Acute) Onychomycosis (Acute) Hyperlipidemia (Acute) Hypertension (Chronic) Right carotid bruit (Acute) Hypothyroidism (Chronic) Chronic pain of left knee (Acute) Medical History Thyroid nodule Diplopia Strabismus Vitamin D deficiency Social History/Home Situation: Lives alone in a private home with 3 steps to enter. Indpendent with all aspects of ADLs prior to surgery although has had incrasing difficulty with walking due to worsening arthritis Equipment Owned/DME: None Subjective: Agreeable with consult. Wanted to uuse the bathroom first. Objective: General Observation: BRAYDON wraps to L LE. Crryocuff to L knee. TEDS to R leg and foot Mental Status: Alert and oriented as to person, place, time, and purpose. Able to pay attention, focus, and respond appropriately. Pain: 4-5/10 in the L knee at rest but did not worsen with movement Vital Signs: Closely monitored by nursing staff ROM: Right Lower Extremity: Hip flexion WFL. Hip abduction WFL. Knee flexion WFL. Ankle dorsiflexion WFL. Ankle plantarflexion WFL. Left Lower Extremity: Hip flexion allowed up to 90 degrees. Hip abduction WFL. Knee flexion 30 degrees to 90 degrees. Knee extension -30 degrees. Ankle dorsiflexion WFL. Ankle plantarflexion WFL. Strength: Right Lower Extremity: Hip flexors 4/5. Hip abductors 4/5. Knee flexors 5/5. Knee extensors 5/5. Ankle dorsiflexors 5/5. Ankle plantarflexors 5/5. Left Lower Extremity: Hip flexors 3-/5. Hip abductors 3-/5. Knee flexors 3-/5. Knee extensors 3-/5. Ankle dorsiflexors 4-/5. Ankle plantarflexors 4-/5. Bed Mobility/Transfers: Minimal cueing provided for use of B hands as needed for support, movement sequence, AD management, and posture to reduce fall risk and minimize pain report Rolling stand by assist Supine to sit stand by assist Sit to supine contact guard assist Sit to stand contact guard assist with FWW Stand to sit stand by assist with FWW Bed to toilet seat contact guard assist with FWW Toilet seat to bed contact guard assist with FWW Gait: Facilitated safe and correct performance of in room short distance ambulation from edge of bed to the bathroom for about 15 feet and another 15 feet from bathroom back to bed using front wheeled walker with step to gait pattern requiring minimal to contact-guard assist for safety. Minimal verbal cueing provided for AD management, weight distribution, limb movement sequence, and posture to reduce fall risks. Stairs: Not assessed today Balance: Static Sitting: Normal Dynamic Sitting: Normal Static Standing: Fair Dynamic Standing: Fair Special Tests: Mobility Limitations Standardized Measure [facility] AM-PAC 6 clicks Basic Mobility Inpatient Short Form: Raw Score: 18 CMS Score: 47% deficit Informed Consent/Education: Patient was instructed in purpose of PT consult and plan of care. Agreeable to proceed with established PT POC to achieve personal goals. Trained patient with correct performance of exercises below to maximize motor control, joint flexibility, soft tissue extensibility of the L knee musculature: Access Code: [email or web address] URL: [email or web address] Date: 01/14/2025 Prepared by: Lorena Olea Exercises - Supine Quad Set - 1 x daily - 7 x weekly - 1 sets - 10 reps - 5 hold - Supine Heel Slide - 1 x daily - 7 x weekly - 1 sets - 10 reps - 5 hold - Supine Ankle Pumps - 1 x daily - 7 x weekly - 1 sets - 10 reps - 5 hold - Small Range Straight Leg Raise - 1 x daily - 7 x weekly - 1 sets - 10 reps - 5 hold - Seated September - 1 x daily - 7 x weekly - 1 sets - 10 reps - 5 hold Assessment: Patient requires use of front wheeled walker for mobility ADL performance to maximize independence and reduce fall risk. Patient presents with clinical signs and symptoms consistent with curre nt/admitting diagnoses that have resulted to mobility limitations, gait instability, generalized weakness, and overall ADL decline as demonstrated by the following impairment level findings: 1. Decreased strength to left hip and knee major muscle groups 2. Impaired sitting/standing balance 3. Impaired activity tolerance 4. Limitation of joint range of motion in L knee Impairments are contributing to the following functional limitations: 1. Decline in bed mobility skills 2. Decline in transfer skills 3. Difficulty with ambulation without assistive device 4. Increased completion time for mobility ADL performance 5. Increased risk for falls 6. Difficulty with managing steps alone safely Patient is assessed as a 86009 moderate complexity based on the following: History: 79-year-old female with past medical history as indicated above Examination: Demonstrable impairment in strength, balance, and mobility level with underlying impairments and functional limitations as exhibited above as well as deficit score of 47% utilizing the [facility] Mobility Inpatient Short Form Presentation: Evolving Decision Makin moderate complexity Goals: Goals X1 week 1. Supine-Sit independent 2. Sit-Supine independent 3. Sit-Stand independent 4. Stand-Sit independent with FWW 5. Bed-Chair independent with FWW 6. Chair-Bed independent with FWW 7. Independent gait on level surface with use of FWW for at least 300 feet without report of pain nor dyspnea 8. Independent stair negotiation while holding onto B rails for at least 3 steps without report of pain nor dyspnea 9. Independent with home exercise program 10. Good static and dynamic standing balance/tolerance Plan of Care/Treatment Plan: 1-2x/day, 7 days/week x 1 week. Plan of care has been reviewed with the [employer] providing the service under Physical Therapy direction. Initiate Physical Therapy intervention for pain management as needed, strengthening, bed mobility, transfers, gait, stairs, balance training, and use of assistive device. DISCHARGE RECOMMENDATIONS: Home when medically cleared by orthopedic surgeon. Recommend outpatient PT services in order to optimize functional mobility outcomes and facilitate return to independent community ambulation without an assistive device. TREATMENT CODE/TIME: 97378 x 25 minutes for 1 unit, 33101 x 15 minutes for 1 unit (16: 40?17: 20). Thank you for the opportunity to participate in the care of this patient. Lorena Olea PT, DPT, CLT [facility] [place], [place]
--- NOTE | 2025-01-14 16:46 | W.PC.ACHO ---
Registration Status: ADM FRANNIE Primary Language: Preferred Language: Medical / Surgical History (Last Reviewed 01/14/25 @ 11:54 by May Schneiedr) Thyroid nodule Diplopia Strabismus Vitamin D deficiency (Last Reviewed 01/14/25 @ 11:54 by May Schneider) History of eye surgery History of esophagogastroduodenoscopy (EGD) History of colonoscopy History of tonsillectomy History of bunionectomy Hx of arthroscopy of left knee History of cataract extraction History of wisdom tooth extraction Most Recent Vital Signs Temperature 36.9 C 01/14/25 15:15 Temperature Source Skin 01/14/25 12:22 Pulse 69 01/14/25 15:16 Pulse Rhythm Regular 01/14/25 11:35 Pulse 70 01/14/25 15:16 Respiratory Rate 15 01/14/25 15:16 Respiratory Depth Normal 01/14/25 11:35 Blood Pressure 158/59 H 01/14/25 15:16 Blood Pressure Mean 95 01/14/25 15:16 Pulse Oximetry 93 01/14/25 15:16 Respiratory End-tidal CO2 33 01/14/25 15:16 Oxygen Delivery Method Room Air 01/14/25 15:15 Oxygen Flow Rate 2 01/14/25 14:58 Pain Level 0 01/14/25 15:15 Comment time out 1232 versed 2mg 1233 block begins 1234 block ends 1239 01/14/25 12:22 Allergies Penicillins Allergy (Severe, Verified 01/14/25 12:03) Swelling/Edema Sulfa (Sulfonamide Antibiotics) Allergy (Severe, Verified 01/14/25 12:03) Headache iodine Allergy (Intermediate, Verified 01/14/25 12:03) Swelling/Edema Latex, Natural Rubber Allergy (Intermediate, Verified 01/14/25 12:03) Skin Rash shellfish derived Allergy (Intermediate, Verified 01/14/25 12:03) Swelling/Edema perfume Adverse Reaction (Severe, Verified 01/14/25 12:03) Wheezing bee stings Allergy (Severe, Uncoded 01/14/25 12:03) Anaphylaxis Active Medications Generic Name Dose Route Start Last Admin Trade Name Freq PRN Reason Stop Dose Admin Acetaminophen 1,000 mg 01/14/25 06:00 01/14/25 12:10 Acetaminophen 500 Mg Tab PO 01/14/25 23:59 1,000 mg PREOP RENETTA Administration Celecoxib 400 mg 01/14/25 06:00 01/14/25 12:10 Celecoxib 200 Mg Cap PO 01/14/25 23:59 400 mg PREOP RENETTA Administration Gabapentin 300 mg 01/14/25 06:00 01/14/25 12:10 Gabapentin 300 Mg Cap PO 01/14/25 23:59 300 mg PREOP RENETTA Administration Tranexamic Acid/Sodium Chloride 1,000 mg in 100 mls @ 600 mls/hr 01/14/25 06:00 01/14/25 13:17 IVPB 01/14/25 23:59 Infused PREOP RENETTA Infusion IV IV Catheter Type [Right Hand] Peripheral IV IV Catheter Gauge [Right Hand] 20 Intake and Output - 24 Hour Total 10/07/24 08:35 thru 01/14/25 15:15 Intake Total 650 Output Total 100 Balance 550 Weight 75.8 kg Intake: IV 650 Output: Estimated Blood Loss 100 Other: Emesis Description None v v v v v v v v v Sending and/or Receiving Nurses: Please use comment section below to note any information pertinent to the patient hand-off not included above. Information / Comments: Pt received from PACU s/p total knee replacement. Pt was awake and alert and able to answer questions appropriatey. Pt brought to [facility] and settled into room. Pt oriented to room and call bailey was placed in reach. Pt able to call appropriately with needs. Report received from:
[2025-01-14] MEDS: Aspirin E.C. 81 MG TABEC PO (21:05)
[2025-01-14] MEDS: Tranexamic Acid 650 MG TAB 1300 MG PO (21:07)
[2025-01-14] MEDS: ceFAZolin 1 GM/50 ML BAG IVPB (21:08)
[2025-01-14] MEDS: Normal Saline Flush 10 ML SYR IV (21:19)
[2025-01-15 02:56] VITALS: BP 130/59; PULSE 61; RESP 18; TEMP 36.4; O2SAT 94
[2025-01-15] MEDS: Levothyroxine 50 MCG TAB PO (05:06)
[2025-01-15] MEDS: ceFAZolin 1 GM/50 ML BAG IVPB ×2 (05:06→12:23)
[2025-01-15] MEDS: Normal Saline Flush 10 ML SYR IV (05:07)
--- NOTE | 2025-01-15 07:04 | DSE_ITS ---
Date of service: 01/15/25 Time of Service: 11:58 Discharge Plan Disposition Patient Disposition: Home Condition: Improving Discharge Details Reason For Visit: OA L Knee Admit Date/Time: 01/14/25 15:40 Admit Provider: Josias Rivas Attending Provider: Josias Rivas Primary Care Provider: Carina Davis Hospital Course Hospital Course: Patient was admitted to the medical/surgical floor following the procedure. The surgery was tolerated well without any notable medical, surgical, or anesthetic complications. Mobilization began postoperatively. She was voiding spontaneously. Vitals were stable. Physical therapy worked with the patient and was cleared for discharge home. No acute medical issues. Pain was controlled on oral regimen. Home Meds and New Rx's Prescriptions: New aspirin 81 mg tablet,delayed release (DR/EC) 81 mg PO BID Qty: 60 0RF acetaminophen 500 mg tablet 1,000 mg PO Q8H PRN (Reason: pain) Qty: 90 3RF dexamethasone 4 mg tablet 4 mg PO DAILY Qty: 2 0RF Rx Instructions: Starting Post-Operative Day #1 (Day after surgery) docusate sodium [Colace] 100 mg capsule 100 mg PO BID PRNQty: 10 0RF gabapentin 300 mg capsule 300 mg PO QHS Qty: 14 0RF oxycodone 5 mg tablet 5 mg PO Q4H PRNQty: 18 0RF Continued albuterol sulfate [ProAir HFA] 90 mcg/actuation HFA aerosol inhaler 2 puff inhalation Q6H PRN epinephrine 0.3 mg/0.3 mL auto-injector 0.3 mg IM ONCE Rx Instructions: as a single dose; may repeat once acyclovir 800 mg tablet 800 mg PO TID PRN Patient Comments: uses PRN for cold sores cholecalciferol (vitamin D3) 50 mcg (2,000 unit) capsule 3,000 unit PO DAILY omeprazole 20 mg capsule,delayed release(DR/EC) 20 mg PO DAILY cyanocobalamin (vitamin B-12) 1,000 mcg capsule 1,000 mcg PO DAILY clobetasol 0.05 % cream 1 applic topical DAILY estradiol [Estrace] 0.01 % (0.1 mg/gram) cream 1 g vaginal DIRECTED Patient Comments: hasn't been using recently Rx Instructions: for 14 days levothyroxine 50 mcg tablet 50 mcg PO DAILY Patient Comments: TAKE ONE TABLET BY MOUTH EVERY DAY BEFORE MEALS Changed celecoxib 200 mg capsule 200 mg PO BID PRN (Reason: Pain) Qty: 60 1RF Dose Instruction: TAKE ONE CAPSULE BY MOUTH TWICE A DAY NEEDED FOR PAIN Discontinued naproxen 500 mg tablet 500 mg PO BID acetaminophen 500 mg tablet See Rx Instructions .ROUTE .COMPLEX Qty: 90 3RF Dose Instruction: TAKE TWO TABLETS BY MOUTH EVERY 8 HOURS NEEDED FOR PAIN Rx Instructions: TAKE TWO TABLETS BY MOUTH EVERY 8 HOURS NEEDED FOR PAIN No Action sertraline 50 mg tablet 50 mg PO DAILY Discharge Instructions Additional Instructions: Total Knee Discharge Instructions Activity: The most important activity is to walk and to work on gentle motion (both flexion and extension). You should try to take short walks a few times a day. It is important that when resting you work on keeping the knee straight. Avoid putting a pillow behind the knee as this will encourage flexion. Work on range of motion exercises as provided by Physical Therapy. - Start outpatient physical therapy within 2 weeks. - You should wear the VIN hose on both legs for 2 weeks. You may remove these at night. You may also use any compression sock in place of the VIN hose. - Utilize [employer] to review exercises, see videos on exercises and obtain basic information pertaining to your surgery and your recovery. Dressing: Remove the Freddie wrap by 2 days after your surgery and put on the VIN stocking given to you from the hospital. Keep the surgical dressing (underneath the FREDDIE wrap) in place for at least one week. After the first week it may be removed and replaced with light gauze and tape or nothing. The wound and dressing may get wet after 3 days but avoid soaking the dressing or otherwise it will need to be changed. Many people prefer covering the dressing with cling wrap (saran wrap) to minimize it from getting soaked. If it gets wet, just pat dry. If it starts to peel off then it will need to be changed. Medications: - You should take Tylenol and anti-inflammatory Celebrex as your primary pain control medications. If the Celebrex is too expensive or not covered, please call the office for another alternative (Advil/Ibuprofen or Naproxen/Aleve) - You have been prescribed a stronger pain medication Oxycodone for breakthrough pain, take as needed as prescribed. - You should continue your stomach acid reduction agent Omeprazole to help reduce stomach acid and reflux. - You have been prescribed Gabapentin to take at night for restlessness and nerve pain. - You will be taking Aspirin 81mg twice a day for DVT prevention unless instructed otherwise. - You have also been prescribed Decadron to take to control post-operative nausea and pain. You will start this tomorrow. - If you have constipation you should take Colace or Miralax (both [id number]). It takes most people 3-4 days to have a bowel movement. Follow-up: 2 weeks If you have any acute concerns or questions, please do not hesitate to contact the office at [phone]. You may contact Dr. Rivas with any questions after hours through the hospital at [phone] or on his cell phone at [phone]. Stand Alone Forms: Nursing Discharge Form Referrals: Josias Rivas MD [ [facility] STAFF PHYSICIAN, Orthopaedic Surgical] - 01/29/25 1:30 pm Activity:: Activity as Tolerated Equipment/Supplies:: Walker Diet:: As Tolerated Discharge Orders Discharge Orders: Discharge Order (Routine); Ordered 01/15/25 Ordered By: Clarence Aburto Discharge Data Discharge Date/Time-TO BE ENTERED AT DEPARTURE: 01/15/25 14:10 DS: Summary Time Spent with Patient providing and/or coordinating discharge services: Less than 30 minutes Status at Discharge Functional status at discharge: uses cane/walker Overall status at discharge: patient is progressing back to baseline Mental Status: mental status grossly normal Speech and Movement: speech and movement normal Mood: congruent mood Affect: normal affect Exam Narrative Exam Narrative: NAD. AAOx3. Left knee dressing c/d/i. +SLR +ADF/APF/EHL/FHL SILT DP/SP/Tib Psych Mental Status: mental status grossly normal Speech and Movement: speech and movement normal Mood: congruent mood Affect: normal affect DS: Data Vitals/I&O Vitals and I&O: Vital Signs Temperature 36.4 C L 01/15/25 02:56 Temperature Source Temporal Artery Scan 01/15/25 02:56 Pulse 61 01/15/25 02:56 Pulse Rhythm Regular 01/14/25 11:35 Pulse 70 01/14/25 15:16 Respiratory Rate 18 01/15/25 02:56 Respiratory Effort Normal 01/14/25 18:40 Respiratory Depth Normal 01/14/25 18:40 Respiratory Pattern Normal 01/14/25 18:40 Blood Pressure 130/59 L 01/15/25 02:56 Blood Pressure Mean 82 01/15/25 02:56 Pulse Oximetry 94 01/15/25 02:56 Respiratory End-tidal CO2 33 01/14/25 15:16 Oxygen Delivery Method Room Air 01/15/25 02:56 Oxygen Flow Rate 0 01/15/25 02:56 Pain Level 3 01/15/25 02:56 Comment time out 1232 versed 2mg 1233 block begins 1234 block ends 1239 01/14/25 12:22 Intake & Output 01/14/25 01/14/25 01/15/25 11:59 23:59 11:59 Intake Total 1450 / 1450 50 / 50 Output Total 100 / 100 Balance 1350 / 1350 50 / 50 Weight 75.8 kg 75.8 kg Intake: IV 1150 / 1150 50 / 50 Oral 300 / 300 Output: Estimated Blood Loss 100 / 100 Other: Urine Color Pale Pale Yellow Yellow Urine Appearance Clear Clear Urine Odor Normal Normal Emesis Description None PFSH All Active Problems Status post total replacement of right hip (Acute) Revision acetabular component on 02/05/2024 Previous revision of acetabular component at [facility] – [place], [place] 2019 Acute blood loss anemia (Acute) Osteoarthritis of left knee (Acute) Synvisc injection: 06/29/2023 Allergic asthma (Acute) GERD (gastroesophageal reflux disease) (Chronic) Mitral valve prolapse (Acute) History of revision of total hip arthroplasty (Acute) Onychomycosis (Acute) Hyperlipidemia (Acute) Hypertension (Chronic) Right carotid bruit (Acute) Hypothyroidism (Chronic) Chronic pain of left knee (Acute) Medical History Thyroid nodule Diplopia Strabismus Vitamin D deficiency Surgical History History of eye surgery for double vision History of esophagogastroduodenoscopy (EGD) History of colonoscopy History of tonsillectomy History of bunionectomy Hx of arthroscopy of left knee History of cataract extraction History of wisdom tooth extraction Social History Smoking/Tobacco Use Status: Former Tobacco Use Quit Date: 07/16/64 Smoking risk assessment performed?: Yes Alcohol Intake: never Drug use: Rarely Substance use type: does not use Housing: house Do you feel safe at home: Yes Do you feel safe in your relationship?: Yes Time Spent with Patient Time Spent with Patient: <45 minutes Time was spent: preparing to see the patient(eg.review tests), obtaining and/or reviewing separately otained hiistory, indepentently interpreting results and counseling the patient
[2025-01-15 07:23] VITALS: BP 124/70; PULSE 71; RESP 18; TEMP 36.6; O2SAT 97
--- NOTE | 2025-01-15 07:57 | PT.INTREAT ---
PT Notes Visit Reasons: OA L Knee Inpatient Physical Therapy Treatment Note [facility] Date: 01/15/25 PRECAUTIONS:Fall, standard SUBJECTIVE: Alyssa states that her knee is a bit sore this morning; the SLR was bothersome yesterday, and she thinks this contributed. Reports baseline balance impairments and chronic mobility deficits related to right AMBER with revision x 2 (last 12/2023). OBJECTIVE: ? PAIN: 09/22 VITALS: monitored by nursing Therapeutic Activities (63935k7): Direct one-on-one instruction in dynamic activities to improve functional performance. ? BED MOBILITY/TRANSFERS? Supine-sit: SBA? Sit-supine: SBA ? Sit-stand: CGA initially, then SBA for further reps. Performed from various surfaces/heights (toilet with single rail, w/c, elevated bed) for total of 7 reps. Initially requires cues for technique and hand placement, although with excellent carry over. ? Stand-sit: CGA initially, progressing to SBA by end of session with reps as above ? Provided skilled cues and instruction on performance and technique throughout. Performed transfer training as above. Instructed in stair management for single 6 step. Performed with bilat UE support to rails, up forward, and down backward, CGA. Educated on partner positioning for CGA during completion, which her friend, Dale, will be helping with upon return home. ? GAIT? Assistive Device: FWW? Weight bearing: WBAT Assist: CGA initially, progressing to SBA ? Distance:? 15'x4, 50x2 ? Deviation: limited foot clearance on the right, although improves with cues. Is able to demonstrate active DF in sitting position. ? Therapeutic Exercises (91572e6): Direct one-on-one instruction in therapeutic exercises to develop strength, endurance, range of motion and flexibility. ? Exercises ? Ankle pumps 10x3 LAQ 10x heel slides in seated position 10x instructed in passive knee extension with ankle propped; assisted into this position post-treatment, which she tolerates well. Understands to remove pillow if uncomfortable. ? ASSESSMENT:? Improving mobility. Has underlying balance impairment with h/o multiple falls, but has good insight into deficits. Tolerated transfers and household distance ambulation well today. Has assistance from friend upon return home. PLAN: Continue PT intervention to maximize safety and mobility. TREATMENT CODE/TIME: [id number] (13711v5, 13322v9) DISCHARGE RECOMMENDATION: Home with HHPT Jacqueline Porter, PT, DPT [facility]
[2025-01-15] MEDS: Dexamethasone 4 MG TAB PO (08:19)
[2025-01-15] MEDS: Omeprazole 20 MG CAPCR PO (08:19)
[2025-01-15] MEDS: Cholecalciferol (Vitamin D3) 1,000 UNIT TAB 3000 UNITS PO (08:19)
[2025-01-15] MEDS: Cyanocobalamin 500 MCG TAB 1000 MCG PO (08:20)
[2025-01-15] MEDS: Sertraline 50 MG TAB PO (08:20)
[2025-01-15] MEDS: Aspirin E.C. 81 MG TABEC PO (08:20)
[2025-01-15] MEDS: Acetaminophen 500 MG TAB 1000 MG PO (08:20)
--- NOTE | 2025-01-15 08:54 | CMDISCH_ITS ---
Date of service: 01/15/25 Time of Service: 08:54 LACE Index Scoring Tool Questions: Length of Stay (in days): 1 Was the patient admitted via the E.D.?: No E.D. Visits: 1 Answers: Total Score: 2 Risk of Readmission: Low Risk Care Management Discharge Plan Reason for Hospitalization: OA Left Knee Discharge Plan: Discharged home via private vehicle with family. Follow up with community providers and the discharge plan of care as directed. Alyssa marcos kapadia llow up with Ortho on 01/29, as scheduled. Outpatient PT as recommended, no new services are ordered before discharge. Patient/Family Education Needs: Review discharge instructions and plan to follow up after discharge, discuss ask me three. Services Needed at Discharge: Home Health Care Services ([facility])
--- NOTE | 2025-01-15 14:25 | PT.INTREAT ---
PT Notes Visit Reasons: OA L Knee Inpatient Physical Therapy Treatment Note [facility] Date: 01/15/25 PM SESSION PRECAUTIONS:Fall, standard SUBJECTIVE: Alyssa states she is going home around 2 pm. She again Reports baseline balance impairments and chronic mobility deficits related to right AMBER with revision x 2 (last 12/2023). OBJECTIVE: ? PAIN: 09/22 VITALS: monitored by nursing Therapeutic Activities (22177e9): Direct one-on-one instruction in dynamic activities to improve functional performance. ? BED MOBILITY/TRANSFERS? Supine-sit: SBA? Sit-supine: SBA ? Sit-stand: CGA initially, then SBA for further reps. Performed from various surfaces/heights (toilet with single rail, stationary chair, elevated bed) for total of 8 reps. ? Stand-sit: CGA initially, progressing to SBA by end of session with reps as above ? Pt with 1 episode of LOB posteriorly during dynamic balance ? Provided skilled cues and instruction on performance and technique throughout. Performed transfer training as above. Instructed in stair management for single 6 step. Performed with bilat UE support to rails, up forward, and down backward, CGA. Educated on partner positioning for CGA during completion, which her friend, Dale, will be helping with upon return home. ? GAIT? Assistive Device: FWW? Weight bearing: WBAT Assist: CGA for the initial distance then progressed to SBA ? Distance:? 18 feet x 3 then 50 feet x 1 ? Deviation: limited foot clearance on the right, although improves with cues. Is able to demonstrate active DF in sitting position. ? Therapeutic Exercises (23989r4): Direct one-on-one instruction in therapeutic exercises to develop strength, endurance, range of motion and flexibility. ? Exercises ? Ankle pumps 10x3 LAQ 10x heel slides in seated position 10x quad sets x10 reps ? ASSESSMENT:?Pt able to demonstrate therex with min cue for technique for quad set without compensation. Pt's underlying balance deficit impacts standing dynamic tasks and places her at risk for falls. She has good insight into deficit . pt noted slight steppage gait on Right during ambulation which may impact her ability for ankle strategies in standing for balance recovery. Pt safe for d/c to home with friend providing assistance overnight. PLAN: Continue PT intervention to maximize safety and mobility. TREATMENT CODE/TIME: [id number] ([id number], 98809r7) DISCHARGE RECOMMENDATION: Home with HHPT Jessica Hagen, [facility]
== END 2025-01-15 14:10 | disposition home or self-care (01) ==
LOC: MS 15:40
PROVIDERS: Admitting Provider Student in an Organized Health Care Education/Training Program; PCP Physician Assistant; Visit Provider Student in an Organized Health Care Education/Training Program
PROC: (CPT 27447; principal; 2025-01-14 14:15)
DX: M17.12 Unilateral primary osteoarthritis, left knee (principal); G89.18 Other acute postprocedural pain; M25.562 Pain in left knee; Z96.641 Presence of right artificial hip joint; J45.909 Unspecified asthma, uncomplicated; K21.9 Gastro-esophageal reflux disease without esophagitis; I34.0 Nonrheumatic mitral (valve) insufficiency; I10 Essential (primary) hypertension; E78.5 Hyperlipidemia, unspecified; E03.9 Hypothyroidism, unspecified; E55.9 Vitamin D deficiency, unspecified
CPT/HCPCS: 27447; 64447; 96365; 96366; 97110; 97162; 97530; C1776; G0378; J0665; J0666; J0690; J1100; J2250; J2371; J2401; J2405; J2704; J8540

== ENCOUNTER 2025-01-29 13:52 | Outpatient (CLI) | payer MEDICARE, SELFPAY ==
--- NOTE | 2025-01-29 13:00 | DI.RAD_ITS ---
Exam(s) XR STANDING ALIGNMENT EXAM: XR STANDING ALIGNMENT CLINICAL HISTORY: 1ST POST OP S/P L TKA. TECHNIQUE: 2D digital imaging was performed. COMPARISON: Prior x-rays 10/06/2024 FINDINGS: 3 views None there has been interval placement of a left knee prosthesis which appears in satisfactory position. Moderate degenerative changes are again noted in the opposite-right knee, more so in the lateral than the medial compartment. There are bilateral hip prostheses again noted which appear satisfactory. No fractures nor loosening. Ankles appear unremarkable. Bone density normal. No osseous lesions. IMPRESSION: As above. DATA REPOSITORY: RADIATION DOSE DELIVERED:
--- NOTE | 2025-01-29 13:00 | DI.RAD_ITS ---
Exam(s) XR KNEE LT 1V EXAM: XR KNEE LT 1V CLINICAL HISTORY: 1st post op S/P L TKA. TECHNIQUE: 2D digital imaging was performed. COMPARISON: CR,XR XR KNEE RT 3V AP,LAT,AURA from 11/23/2024 FINDINGS: Single lateral view of the left knee: Satisfactory position alignment of the components of the recently placed prosthesis. No fracture or loosening. There is also evidence of patellar resurfacing. IMPRESSION: Satisfactory appearance DATA REPOSITORY: RADIATION DOSE DELIVERED:
== END 2025-01-29 13:53 | disposition home or self-care (01) ==
LOC: DIORS 13:52
PROVIDERS: PCP Physician Assistant; Referring Provider Physician Assistant; Visit Provider Student in an Organized Health Care Education/Training Program
DX: Z47.1 Aftercare following joint replacement surgery (principal); Z96.652 Presence of left artificial knee joint; M25.562 Pain in left knee
CPT/HCPCS: 99024; 73560; 77073

== ENCOUNTER 2025-03-02 14:07 | Outpatient (CLI) | payer MEDICARE, SELFPAY ==
--- NOTE | 2025-03-02 13:30 | DI.US_ITS ---
Exam(s) US LOWER EXTREMITY VENOUS LT EXAM: US LOWER EXTREMITY VENOUS LT CLINICAL HISTORY: PAIN, LEFT LEG SWELLING, hx total lt knee replacement TECHNIQUE: Grayscale, color, and doppler imaging of the deep venous system of the lower extremity was performed. COMPARISON: US POCUS EXAM from 01/14/2025 FINDINGS: There is no evidence of intraluminal thrombus and there is normal compression and augmentation demonstrated within the common femoral vein, femoral vein, and popliteal vein. However, in the calf there is some focal nonocclusive thrombus in 1 of paired peroneal veins in the proximal-mid calf level. The clot length is approximately 2 cm in length. There is a heterogeneous mass in the popliteal fossa measuring approximately 1.0 x 2.0 x 4 cm. This is probably hematoma, given the recent surgery in this region. Other consideration would be for complicated Cosby cyst. IMPRESSION: 1. This study is positive for DVT in the left calf in 1 of the paired peroneal veins with clot length of 2 cm. There is no evidence of DVT above the level of the knee. 2. There is a 2 x 1.0 x 4.0 cm probable hematoma in the left popliteal fossa. DATA REPOSITORY:
== END 2025-03-02 14:27 ==
LOC: DI 03-12 14:08
PROVIDERS: PCP Physician Assistant; Visit Provider Physician Assistant
DX: M79.89 Other specified soft tissue disorders (principal); Z96.652 Presence of left artificial knee joint
CPT/HCPCS: 99024; 73502; 93971

== ENCOUNTER 2025-03-02 15:04 | Outpatient (CLI) | payer MEDICARE, SELFPAY ==
--- NOTE | 2025-03-02 12:45 | DI.RAD_ITS ---
Exam(s) XR HIP RT AP LAT ONLY EXAM: XR HIP RT AP LAT ONLY INDICATION: s/p right AMBER. COMPARISON: CR XR HIP RT AP LAT ONLY from 10/06/2024 TECHNIQUE: 2D digital imaging was performed. Two views. FINDINGS: Stable alignment of right hip prosthesis. No abnormal surrounding bony lucencies. Chronic soft tissue calcifications. No new abnormalities DATA REPOSITORY: RADIATION DOSE DELIVERED:
== END 2025-03-02 15:05 | disposition home or self-care (01) ==
LOC: DIORS 15:04
PROVIDERS: PCP Physician Assistant; Referring Provider Physician Assistant; Visit Provider Physician Assistant
DX: M79.662 Pain in left lower leg (principal); Z96.641 Presence of right artificial hip joint; Z96.652 Presence of left artificial knee joint; I82.442 Acute embolism and thrombosis of left tibial vein
CPT/HCPCS: 99024; 73502

== ENCOUNTER → 2025-03-30 13:53 | Outpatient (BNVA) | payer MEDICARE, SELFPAY | PROVIDERS: PCP Physician Assistant; Referring Provider Physician Assistant; Visit Provider Physician Assistant | DX: Z47.1 Aftercare following joint replacement surgery (principal); Z96.652 Presence of left artificial knee joint; I82.452 Acute embolism and thrombosis of left peroneal vein | CPT/HCPCS: 99024 ==

== ENCOUNTER → 2025-05-26 00:27 | Outpatient (CLI) | payer MEDICARE, SELFPAY ==
--- NOTE | 2025-05-26 | DI.MAMMO_ITS ---
Exam(s) MAMMO SCREENING EXAM: MAMMO SCREENING CLINICAL HISTORY: SCREENING, Z12.31. TECHNIQUE: Bilateral full field digital CC and MLO mammographic images were obtained with 3D tomosynthesis and utilizing computer aided detection (CAD). COMPARISON: Prior mammograms were reviewed. FINDINGS: There has been no significant change in the appearance and distribution of the fibroglandular tissue. Benign appearing microcalcifications again noted bilaterally. There are no new spiculated masses nor new malignant appearing microcalcification groups. There is no significant architectural distortion nor skin thickening-retraction. IMPRESSION: No radiographic evidence of malignancy. BI-RADS Category 2 - Benign Findings Breast Density - Category B - There are scattered areas of fibroglandular density. Breast density Category C or D implies that the patient has dense breast tissue. Dense breast tissue can make it harder to find cancer on a mammogram. Dense breast tissue is also associated with an increased risk of breast cancer. This information about the result of the mammogram report was provided to the patient to raise their awareness. Use this report when you speak with the patient about their risks for breast cancer, which includes their family history. At that time, you may recommend additional screening tests (Ultrasound or MRI) as these tests may add significant information. A negative radiographic report should not delay biopsy if a dominant or clinically suspicious mass is present. Up to ten percent of cancers are not identified on mammography. A negative report may reinforce clinical impression. Adenosis and dense breasts may obscure an underlying neoplasm. False positive reports average 6 to 10%. Patient will receive a letter notifying them of these results.
== END ==
LOC: DI 00:27
PROVIDERS: PCP Physician Assistant; Visit Provider Physician Assistant
DX: Z12.31 Encounter for screening mammogram for malignant neoplasm of breast (principal); R92.323 Mammographic fibroglandular density, bilateral breasts
CPT/HCPCS: 77063; 77067

== ENCOUNTER → 2025-06-22 12:57 | Outpatient (BNVA) | payer MEDICARE, SELFPAY | PROVIDERS: PCP Physician Assistant; Referring Provider Physician Assistant; Visit Provider Physician Assistant | DX: Z47.1 Aftercare following joint replacement surgery (principal); Z96.652 Presence of left artificial knee joint; I82.452 Acute embolism and thrombosis of left peroneal vein; M65.341 Trigger finger, right ring finger | CPT/HCPCS: 99213 ==